=== PATIENT | male | born 1970 | race Caucasian/White ===

== ENCOUNTER 2020-06-15 00:55 | Inpatient (IN) | payer MEDICARE, MEDICAID, SELFPAY ==
[2020-06-16 01:49] VITALS: BMI 29.2
[2020-06-17] MEDS: LORazepam 1 MG TABLET PO (03:30)
[2020-06-17 06:00] VITALS: BP 114/69; PULSE 73; RESP 16; TEMP 36.5; O2SAT 97
[2020-06-17] MEDS: Omeprazole 20 MG CAPSULE.DR PO (06:49)
[2020-06-17] MEDS: busPIRone HCl 10 MG TABLET PO ×3 (10:16→21:26)
[2020-06-17] MEDS: OXcarbazepine 300 MG TABLET 600 MG PO ×2 (10:16→21:23)
[2020-06-17 10:17] VITALS: BP 114/69; PULSE 73
[2020-06-17] MEDS: Propranolol HCL 20 MG TABLET PO (10:17)
[2020-06-17] MEDS: Benztropine Mesylate 0.5 MG TABLET PO ×2 (10:17→21:22)
[2020-06-17] MEDS: Perphenazine 8 MG TABLET PO ×3 (10:17→21:23)
[2020-06-17] MEDS: Multivitamin TABLET 1 TAB PO (10:18)
[2020-06-17] MEDS: Buprenorphine/Naloxone 8/2 mg FILM 1 FILM SUBLINGUAL (10:18)
[2020-06-17] MEDS: Triamcinolone Acet 0.5 % Cream 15 GM TUBE 1 APPL TOPICAL ×2 (10:26→21:27)
[2020-06-17 14:16] VITALS: BMI 30.2
--- NOTE | 2020-06-17 14:42 | HO.PSYCHPN ---
Assessment & Plan Assessment & Plan (1) Schizophrenia: Status: Acute Code(s): F20.9 - Schizophrenia, unspecified Assessment and Plan: Continue trilafon. Monitor response Lower ativan (2) Lack of housing: Status: Acute Code(s): Z59.0 - Homelessness Assessment and Plan: Unable to return to [facility]. ANNA will liase with outpatiet providers regarding options Greater than 50% of the session was spent on counseling and/or coordination of care Patient educated on: diagnosis, medication risk/benefits and substance abuse Informed Consent: further education needed Reason for contiued inpatient stay Substantial Risk for: harm to others, rapid decompensation and med/psych decompensation Subjective Subjective Date of Service: 06/17/20 Reason For Visit: Unspecified Psychotic Subjective Notes: Turner Order (Active) and 3 Day Interim History: Maurice has been less intrusive and he has been more willing to take medications. He was quite sedated and ativan has been held. He was not happy to hear that there is a possibility that he can not return to [facility] and plans to talk with SW about this further. He has no insight into his illness. He is taking 24 mg trilafon daily. He slept much better. Medication Compliance: Yes Side effects from medications: Yes (sedation) Attending Groups: Intermittent Mental Status Exam Mental Status Exam Patient Appearance: Disheveled Patient Orientation: Person, Place, Time and Situation Level of Consciousness: Drowsy Patient Behavior: Posturing, Cooperative, Suspicious, Impulsive and Pacing Mood Description: Suspicious and Hostile Affect Description: Suspicious, Constricted and Labile Patient Cognition Impaired: No Ability to Follow Directions: Fair Speech Pattern: Spontaneous Speech and Loud Memory Description: Intact Hallucinations: None Delusions: Paranoid Ideation Thought Process: Distracted and Rumination Thought Content: Evasive Depressive Symptoms: Increased Irritability Abnormal Motor Activity Signs and Symptoms: Aggression Judgement: Poor Diagnostics Vital Signs (24Hr): Vital Signs - 24 hr 06/17/20 06:00 06/17/20 10:17 Temperature 97.7 F Pulse Rate 73 73 Respiratory Rate 16 Blood Pressure 114/69 114/69 Pulse Oximetry 97 Body Mass Index 30.2 Labs Results: 06/14/20 19:20 06/14/20 19:20 Labs: Laboratory Results - last 48 hr 06/14/20 06/14/20 06/14/20 19:09 19:20 19:20 WBC RBC Hgb Hct MCV MCH MCHC RDW Coeff of Ernestina Plt Count MPV Immature Gran % (Auto) Neut % (Auto) Lymph % (Auto) [place] % (Auto) Eos % (Auto) Baso % (Auto) Abs Immat Gran (auto) Absolute Lymphs (auto) Absolute Monos (auto) Absolute Eos (auto) Absolute Basos (auto) Absolute Nucleated RBC Nucleated RBC % (auto) Sodium Cancelled Potassium Cancelled Chloride Cancelled Bicarbonate Cancelled Anion Gap Cancelled BUN Cancelled Creatinine Cancelled Estimated Creat Clear Cancelled Est GFR (Non-Af Amer) Cancelled Random Glucose Cancelled Estimat Average Glucose Hemoglobin A1c Total Bilirubin Cancelled Direct Bilirubin Cancelled AST Cancelled ALT Cancelled Alkaline Phosphatase Cancelled Total Protein Cancelled Albumin Cancelled Triglycerides Cholesterol LDL Cholesterol, Calc HDL Cholesterol Urine Opiates Screen NOT DETECTED Ur Barbiturates Screen NOT DETECTED Phencyclidine Screen NOT DETECTED Ur Amphetamines Screen NOT DETECTED U Benzodiazepines Scrn NOT DETECTED Urine Cocaine Screen NOT DETECTED U Cannabinoids Screen NOT DETECTED Ethyl Alcohol Cancelled Coronavirus (PCR) 06/14/20 06/15/20 06/16/20 19:20 00:41 08:50 WBC Cancelled RBC Cancelled Hgb Cancelled Hct Cancelled MCV Cancelled MCH Cancelled MCHC Cancelled RDW Coeff of Ernestina Cancelled Plt Count Cancelled MPV Cancelled Immature Gran % (Auto) Cancelled Neut % (Auto) Cancelled Lymph % (Auto) Cancelled [place] % (Auto) Cancelled Eos % (Auto) Cancelled Baso % (Auto) Cancelled Abs Immat Gran (auto) Cancelled Absolute Lymphs (auto) Cancelled Absolute Monos (auto) Cancelled Absolute Eos (auto) Cancelled Absolute Basos (auto) Cancelled Absolute Nucleated RBC Cancelled Nucleated RBC % (auto) Cancelled Sodium Potassium Chloride Bicarbonate Anion Gap BUN Creatinine Estimated Creat Clear Est GFR (Non-Af Amer) Random Glucose Estimat Average Glucose 117 Hemoglobin A1c 5.7 Total Bilirubin Direct Bilirubin AST ALT Alkaline Phosphatase Total Protein Albumin Triglycerides Cholesterol LDL Cholesterol, Calc HDL Cholesterol Urine Opiates Screen Ur Barbiturates Screen Phencyclidine Screen Ur Amphetamines Screen U Benzodiazepines Scrn Urine Cocaine Screen U Cannabinoids Screen Ethyl Alcohol Coronavirus (PCR) NEGATIVE 06/16/20 08:50 WBC RBC Hgb Hct MCV MCH MCHC RDW Coeff of Ernestina Plt Count MPV Immature Gran % (Auto) Neut % (Auto) Lymph % (Auto) [place] % (Auto) Eos % (Auto) Baso % (Auto) Abs Immat Gran (auto) Absolute Lymphs (auto) Absolute Monos (auto) Absolute Eos (auto) Absolute Basos (auto) Absolute Nucleated RBC Nucleated RBC % (auto) Sodium Potassium Chloride Bicarbonate Anion Gap BUN Creatinine Estimated Creat Clear Est GFR (Non-Af Amer) Random Glucose Estimat Average Glucose Hemoglobin A1c Total Bilirubin Direct Bilirubin AST ALT Alkaline Phosphatase Total Protein Albumin Triglycerides 84 Cholesterol 178 LDL Cholesterol, Calc 114 HDL Cholesterol 48 D Urine Opiates Screen Ur Barbiturates Screen Phencyclidine Screen Ur Amphetamines Screen U Benzodiazepines Scrn Urine Cocaine Screen U Cannabinoids Screen Ethyl Alcohol Coronavirus (PCR) Medications Medications Ambulatory Orders Medication Instructions Recorded benztropine 0.5 mg PO BID 06/16/20 buprenorphine-naloxone [Suboxone] 1 film BUCCAL DAILY 06/16/20 buspirone 10 mg PO TID 06/16/20 clonidine HCl 0.1 mg PO DAILY PRN 06/16/20 docusate sodium 100 mg PO BID PRN 06/16/20 lorazepam 1 mg PO Q6H PRN 06/16/20 multivitamin 1 tab PO DAILY 06/16/20 omeprazole 20 mg PO DAILY 06/16/20 oxcarbazepine 600 mg PO BID 06/16/20 perphenazine 4 mg PO QPM 06/16/20 perphenazine 8 mg PO BID 06/16/20 propranolol 20 mg PO DAILY 06/16/20 trazodone 100 mg PO BEDTIME 06/16/20 triamcinolone acetonide [Kenalog] 1 applic TOPICAL BID 06/16/20 zolpidem 10 mg PO BEDTIME PRN 06/16/20 Allergies Allergies Allergy/AdvReac Type Severity Reaction Status Date / Time haloperidol [From HALDOL] Allergy Intermediate UNKNOWN Unverified 06/03/20 15:44
[2020-06-17] MEDS: Ibuprofen 600 MG TABLET PO (17:06)
[2020-06-17 17:13] VITALS: BP 98/53; PULSE 67; TEMP 36.3
[2020-06-18 06:00] VITALS: BP 125/71; PULSE 61; RESP 16; TEMP 36.1; O2SAT 98
[2020-06-18] MEDS: Omeprazole 20 MG CAPSULE.DR PO (09:50)
[2020-06-18 09:51] VITALS: BP 125/71; PULSE 61
[2020-06-18] MEDS: Propranolol HCL 20 MG TABLET PO (09:51)
[2020-06-18] MEDS: Benztropine Mesylate 0.5 MG TABLET PO ×2 (09:51→21:08)
[2020-06-18] MEDS: Perphenazine 8 MG TABLET PO ×3 (09:52→21:06)
[2020-06-18] MEDS: Multivitamin TABLET 1 TAB PO (09:52)
[2020-06-18] MEDS: OXcarbazepine 300 MG TABLET 600 MG PO ×2 (09:52→21:00)
[2020-06-18] MEDS: Buprenorphine/Naloxone 8/2 mg FILM 1 FILM SUBLINGUAL (09:53)
[2020-06-18] MEDS: Triamcinolone Acet 0.5 % Cream 15 GM TUBE 1 APPL TOPICAL ×2 (09:56→22:16)
[2020-06-18] MEDS: busPIRone HCl 10 MG TABLET PO ×3 (09:57→21:15)
[2020-06-18 14:16] VITALS: BP 130/72; PULSE 64
[2020-06-18] MEDS: cloNIDine HCL 0.1 MG TABLET PO ×2 (14:16→21:16)
[2020-06-18] MEDS: Ibuprofen 600 MG TABLET PO ×2 (14:17→21:01)
[2020-06-18 16:41] VITALS: BP 116/79; PULSE 70; TEMP 36.4
[2020-06-18] MEDS: Acetaminophen 325 MG TABLET 650 MG PO (16:51)
--- NOTE | 2020-06-18 18:34 | P.PNPSI_ITS ---
Assessment & Plan Assessment & Plan (1) Schizophrenia: Status: Acute Code(s): F20.9 - Schizophrenia, unspecified Assessment and Plan: CT medication without change. Challenge with risperdal next week and administer risperdal consta. (2) Lack of housing: Status: Acute Code(s): Z59.0 - Homelessness Assessment and Plan: SW working with [facility] [place] and [facility] Greater than 50% of the session was spent on counseling and/or coordination of care Patient educated on: diagnosis, medication risk/benefits and substance abuse Informed Consent: further education needed Reason for contiued inpatient stay Substantial Risk for: inability to function and rapid decompensation Subjective Subjective Date of Service: 06/18/20 Reason For Visit: Unspecified Psychotic Subjective Notes: Tompkins Order and 3 Day Interim History: Maurice was quite belligerent and angry this morning. He has difficulty processing that he is not able to return to [facility] and he has no insight into how his behaviors of being agitated, yelling and intrusive make others scared and that this is what leads to repeated hospital stays. Ammended Tompkins Order was received and this allows for the addition or risperdal consta. This will be ordered and administered next week. Medication Compliance: Yes Side effects from medications: No Attending Groups: Intermittent Mental Status Exam Mental Status Exam Patient Appearance: Disheveled Patient Orientation: Person and Place Level of Consciousness: Inappropriate and Combative Patient Behavior: Posturing, Belligerent, Verbal Threats, Swearing and Anxious Mood Description: Anxious and Angry Affect Description: Angry Patient Cognition Impaired: No Ability to Follow Directions: Fair Speech Pattern: Pressured and Includes Profanity Memory Description: Intact Hallucinations: None Delusions: Not Present Thought Process: Rumination Thought Content: positive for Intact, positive for Perseveration and positive for Disorganized Abnormal Motor Activity Signs and Symptoms: Aggression Judgement: Poor Judgement and Insight: No insight into illness Diagnostics Vital Signs (24Hr): Vital Signs - 24 hr 06/18/20 06:00 06/18/20 09:51 06/18/20 14:16 Temperature 96.9 F Pulse Rate 61 61 64 Respiratory Rate 16 Blood Pressure 125/71 125/71 130/72 Pulse Oximetry 98 06/18/20 16:41 Temperature 97.5 F Pulse Rate 70 Respiratory Rate Blood Pressure 116/79 Pulse Oximetry Body Mass Index 30.2 Labs Results: 06/14/20 19:20 06/14/20 19:20 Labs: Laboratory Results - last 48 hr 06/14/20 06/14/20 06/14/20 19:09 19:20 19:20 WBC RBC Hgb Hct MCV MCH MCHC RDW Coeff of Ernestina Plt Count MPV Immature Gran % (Auto) Neut % (Auto) Lymph % (Auto) [place] % (Auto) Eos % (Auto) Baso % (Auto) Abs Immat Gran (auto) Absolute Lymphs (auto) Absolute Monos (auto) Absolute Eos (auto) Absolute Basos (auto) Absolute Nucleated RBC Nucleated RBC % (auto) Sodium Cancelled Potassium Cancelled Chloride Cancelled Bicarbonate Cancelled Anion Gap Cancelled BUN Cancelled Creatinine Cancelled Estimated Creat Clear Cancelled Est GFR (Non-Af Amer) Cancelled Random Glucose Cancelled Estimat Average Glucose Hemoglobin A1c Total Bilirubin Cancelled Direct Bilirubin Cancelled AST Cancelled ALT Cancelled Alkaline Phosphatase Cancelled Total Protein Cancelled Albumin Cancelled Triglycerides Cholesterol LDL Cholesterol, Calc HDL Cholesterol Urine Opiates Screen NOT DETECTED Ur Barbiturates Screen NOT DETECTED Phencyclidine Screen NOT DETECTED Ur Amphetamines Screen NOT DETECTED U Benzodiazepines Scrn NOT DETECTED Urine Cocaine Screen NOT DETECTED U Cannabinoids Screen NOT DETECTED Ethyl Alcohol Cancelled Coronavirus (PCR) 06/14/20 06/15/20 06/16/20 19:20 00:41 08:50 WBC Cancelled RBC Cancelled Hgb Cancelled Hct Cancelled MCV Cancelled MCH Cancelled MCHC Cancelled RDW Coeff of Ernestina Cancelled Plt Count Cancelled MPV Cancelled Immature Gran % (Auto) Cancelled Neut % (Auto) Cancelled Lymph % (Auto) Cancelled [place] % (Auto) Cancelled Eos % (Auto) Cancelled Baso % (Auto) Cancelled Abs Immat Gran (auto) Cancelled Absolute Lymphs (auto) Cancelled Absolute Monos (auto) Cancelled Absolute Eos (auto) Cancelled Absolute Basos (auto) Cancelled Absolute Nucleated RBC Cancelled Nucleated RBC % (auto) Cancelled Sodium Potassium Chloride Bicarbonate Anion Gap BUN Creatinine Estimated Creat Clear Est GFR (Non-Af Amer) Random Glucose Estimat Average Glucose 117 Hemoglobin A1c 5.7 Total Bilirubin Direct Bilirubin AST ALT Alkaline Phosphatase Total Protein Albumin Triglycerides Cholesterol LDL Cholesterol, Calc HDL Cholesterol Urine Opiates Screen Ur Barbiturates Screen Phencyclidine Screen Ur Amphetamines Screen U Benzodiazepines Scrn Urine Cocaine Screen U Cannabinoids Screen Ethyl Alcohol Coronavirus (PCR) NEGATIVE 06/16/20 08:50 WBC RBC Hgb Hct MCV MCH MCHC RDW Coeff of Ernestina Plt Count MPV Immature Gran % (Auto) Neut % (Auto) Lymph % (Auto) [place] % (Auto) Eos % (Auto) Baso % (Auto) Abs Immat Gran (auto) Absolute Lymphs (auto) Absolute Monos (auto) Absolute Eos (auto) Absolute Basos (auto) Absolute Nucleated RBC Nucleated RBC % (auto) Sodium Potassium Chloride Bicarbonate Anion Gap BUN Creatinine Estimated Creat Clear Est GFR (Non-Af Amer) Random Glucose Estimat Average Glucose Hemoglobin A1c Total Bilirubin Direct Bilirubin AST ALT Alkaline Phosphatase Total Protein Albumin Triglycerides 84 Cholesterol 178 LDL Cholesterol, Calc 114 HDL Cholesterol 48 D Urine Opiates Screen Ur Barbiturates Screen Phencyclidine Screen Ur Amphetamines Screen U Benzodiazepines Scrn Urine Cocaine Screen U Cannabinoids Screen Ethyl Alcohol Coronavirus (PCR) Medications Medications Current Medications Generic Name Dose Route Start Last Admin Trade Name Freq PRN Reason Stop Dose Admin Acetaminophen 650 mg 06/17/20 00:01 06/18/20 16:51 Acetaminophen 325 Mg Tablet PO 650 mg Q6H PRN Administration HEADACHE/PAIN.MAIN (SCALE 1-3) Al Hydroxide/Mg Hydroxide 30 ml 06/17/20 00:01 Magnesium Hydrox/Alum Hydrox 30 Ml Oral.Susp PO Q6H PRN HEARTBURN/NAUSEA Benztropine Mesylate 0.5 mg 06/17/20 08:30 06/18/20 09:51 Benztropine Mesylate 0.5 Mg Tablet PO 0.5 mg BID@0830,2100 CHANDA Administration Buprenorphine/Naloxone 1 film 06/17/20 09:00 06/18/20 09:53 Buprenorphine/Naloxone 8/2 Mg Film SUBLINGUAL 1 film DAILY CHANDA Administration Buspirone HCl 10 mg 06/17/20 08:30 06/18/20 14:17 Buspirone Hcl 10 Mg Tablet PO 10 mg TID@0830,1330,2100 CHANDA Administration Clonidine HCl 0.1 mg 06/17/20 00:01 06/18/20 14:16 Clonidine Hcl 0.1 Mg Tablet PO 0.1 mg DAILY PRN Administration anxiety/restlessness Docusate Sodium 100 mg 06/17/20 00:01 Docusate Sodium 100 Mg Capsule PO BID PRN Constipation Hydroxyzine HCl 25 mg 06/17/20 21:00 Hydroxyzine Hcl 25 Mg Tablet PO BEDTIME MRX1 PRN NIGHT TIME ANXIETY Ibuprofen 600 mg 06/17/20 14:02 06/18/20 14:17 Ibuprofen 600 Mg Tablet PO 600 mg Q6H PRN Administration Pain, Moderate (Pain Scale 4-6 Lorazepam 1 mg 06/17/20 00:01 06/17/20 03:30 Lorazepam 1 Mg Tablet PO 1 mg Q6H PRN Administration anxiety/restlessness Lorazepam 0.5 mg 06/17/20 15:00 06/18/20 14:19 Lorazepam 1 Mg Tablet PO Not Given TID CHANDA Magnesium Hydroxide 30 ml 06/17/20 00:01 Milk Of Magnesia 30 Ml Oral.Susp PO Q24H PRN Constipation Multivitamins/Vitamin C 1 tab 06/17/20 09:00 06/18/20 09:52 Multivitamin Tablet PO 1 tab DAILY CHANDA Administration Nicotine Polacrilex 2 mg 06/17/20 00:01 Nicotine Polacrilex 2 Mg Gum BUCCAL Q2H PRN Nicotine Cravings Omeprazole 20 mg 06/17/20 06:30 06/18/20 09:50 Omeprazole 20 Mg Capsule.Dr PO 20 mg DAILY@0630 CHANDA Administration Oxcarbazepine 600 mg 06/17/20 08:30 06/18/20 09:52 Oxcarbazepine 300 Mg Tablet PO 600 mg BID@0830,2100 CHANDA Administration Perphenazine 8 mg 06/17/20 00:01 Perphenazine 8 Mg Tablet PO Q4H PRN anxiety/restlessness Perphenazine 8 mg 06/17/20 09:00 06/18/20 14:18 Perphenazine 8 Mg Tablet PO 8 mg TID CHANDA Administration Propranolol HCl 20 mg 06/17/20 09:00 06/18/20 09:51 Propranolol Hcl 20 Mg Tablet PO 20 mg DAILY CHANDA Administration Trazodone HCl 200 mg 06/17/20 21:00 06/18/20 10:02 Trazodone Hcl 100 Mg Tablet PO Not Given BEDTIME CHANDA Trazodone HCl 50 mg 06/17/20 21:00 Trazodone Hcl 50 Mg Tablet PO BEDTIME MRX1 PRN Insomnia Triamcinolone Acetonide 1 appl 06/17/20 08:30 06/18/20 09:56 Triamcinolone Acet 0.5 % Cream 15 Gm Tube TOPICAL 1 appl BID@0830,2100 CHANDA Administration Zolpidem Tartrate 5 mg 06/17/20 21:00 Zolpidem Tartrate 5 Mg Tablet PO BEDTIME MRX1 PRN Insomnia Allergies Allergies Allergy/AdvReac Type Severity Reaction Status Date / Time haloperidol [From HALDOL] Allergy Intermediate UNKNOWN Verified 06/17/20 16:04
[2020-06-18] MEDS: LORazepam 1 MG TABLET 0.5 MG PO (21:04)
[2020-06-18] MEDS: traZODone HCL 100 MG TABLET 200 MG PO (21:07)
[2020-06-18 21:16] VITALS: BP 163/87; PULSE 71
[2020-06-19 00:10] VITALS: BP 132/71; PULSE 66; RESP 16; TEMP 36.1; O2SAT 96
[2020-06-19] MEDS: hydrOXYzine HCL 25 MG TABLET PO (00:49)
[2020-06-19] MEDS: traZODone HCL 50 MG TABLET PO (00:49)
[2020-06-19 06:00] VITALS: BP 127/72; PULSE 77
[2020-06-19] MEDS: Magnesium Hydrox/Alum Hydrox 30 ML ORAL.SUSP PO (09:19)
[2020-06-19] MEDS: Omeprazole 20 MG CAPSULE.DR PO (09:20)
[2020-06-19] MEDS: Buprenorphine/Naloxone 8/2 mg FILM 1 FILM SUBLINGUAL (09:51)
[2020-06-19] MEDS: Perphenazine 8 MG TABLET PO ×3 (09:52→21:17)
[2020-06-19] MEDS: OXcarbazepine 300 MG TABLET 600 MG PO ×2 (09:52→21:17)
[2020-06-19] MEDS: Benztropine Mesylate 0.5 MG TABLET PO ×2 (09:53→21:17)
[2020-06-19] MEDS: Multivitamin TABLET 1 TAB PO (09:53)
--- NOTE | 2020-06-19 12:07 | P.PNPSI_ITS ---
Assessment & Plan Assessment & Plan (1) Schizophrenia: Status: Acute Code(s): F20.9 - Schizophrenia, unspecified Assessment and Plan: ongoing disorganization of thought and behavior Greater than 50% of the session was spent on counseling and/or coordination of care Subjective Subjective Date of Service: 06/19/20 Reason For Visit: Unspecified Psychotic Subjective Notes: 3 Day Interim History: Want to get off propranlol and be on clonidine prn Medication Compliance: Yes Side effects from medications: No Attending Groups: Intermittent Review of Systems Acute medical concerns: No Medical Review of Systems: unchanged Mental Status Exam Mental Status Exam Narrative: inappropriate distance but wearing 2 masks- Patient Appearance: Appropriate Patient Orientation: Person, Place, Time and Situation Level of Consciousness: Awake and Alert Patient Behavior: Dependent, Cooperative, Restless, Anxious and Good Eye Contact Mood Description: Anxious Affect Description: Anxious Patient Cognition Impaired: No Ability to Follow Directions: Fair Speech Pattern: Clear and Rambling Hallucinations: None Thought Process: Distracted Thought Content: positive for Tangential Depressive Symptoms: Increased Anxiety and Increased Irritability Abnormal Motor Activity Signs and Symptoms: Restlessness Judgement: Fair Diagnostics Vital Signs (24Hr): Vital Signs - 24 hr 06/18/20 14:16 06/18/20 16:41 06/18/20 21:16 Temperature 97.5 F Pulse Rate 64 70 71 Respiratory Rate Blood Pressure 130/72 116/79 163/87 H Pulse Oximetry 06/19/20 00:10 Temperature 96.9 F Pulse Rate 66 Respiratory Rate 16 Blood Pressure 132/71 Pulse Oximetry 96 Body Mass Index 30.2 Labs Results: 06/14/20 19:20 06/14/20 19:20 Medications Medications Current Medications Generic Name Dose Route Start Last Admin Trade Name Freq PRN Reason Stop Dose Admin Acetaminophen 650 mg 06/17/20 00:01 06/18/20 16:51 Acetaminophen 325 Mg Tablet PO 650 mg Q6H PRN Administration HEADACHE/PAIN.MAIN (SCALE 1-3) Al Hydroxide/Mg Hydroxide 30 ml 06/17/20 00:01 06/19/20 09:19 Magnesium Hydrox/Alum Hydrox 30 Ml Oral.Susp PO 30 ml Q6H PRN Administration HEARTBURN/NAUSEA Benztropine Mesylate 0.5 mg 06/17/20 08:30 06/19/20 09:53 Benztropine Mesylate 0.5 Mg Tablet PO 0.5 mg BID@0830,2100 CHANDA Administration Buprenorphine/Naloxone 1 film 06/17/20 09:00 06/19/20 09:51 Buprenorphine/Naloxone 8/2 Mg Film SUBLINGUAL 1 film DAILY CHANDA Administration Buspirone HCl 10 mg 06/17/20 08:30 06/19/20 09:57 Buspirone Hcl 10 Mg Tablet PO Not Given TID@0830,1330,2100 [facility] Clonidine HCl 0.1 mg 06/17/20 00:01 06/18/20 21:16 Clonidine Hcl 0.1 Mg Tablet PO 0.1 mg DAILY PRN Administration anxiety/restlessness Docusate Sodium 100 mg 06/17/20 00:01 Docusate Sodium 100 Mg Capsule PO BID PRN Constipation Hydroxyzine HCl 25 mg 06/17/20 21:00 06/19/20 00:49 Hydroxyzine Hcl 25 Mg Tablet PO 25 mg BEDTIME MRX1 PRN Administration NIGHT TIME ANXIETY Ibuprofen 600 mg 06/17/20 14:02 06/18/20 21:01 Ibuprofen 600 Mg Tablet PO 600 mg Q6H PRN Administration Pain, Moderate (Pain Scale 4-6 Lorazepam 1 mg 06/17/20 00:01 06/17/20 03:30 Lorazepam 1 Mg Tablet PO 1 mg Q6H PRN Administration anxiety/restlessness Lorazepam 0.5 mg 06/17/20 15:00 06/19/20 09:56 Lorazepam 1 Mg Tablet PO Not Given TID [facility] Magnesium Hydroxide 30 ml 06/17/20 00:01 Milk Of Magnesia 30 Ml Oral.Susp PO Q24H PRN Constipation Multivitamins/Vitamin C 1 tab 06/17/20 09:00 06/19/20 09:53 Multivitamin Tablet PO 1 tab DAILY CHANDA Administration Nicotine Polacrilex 2 mg 06/17/20 00:01 Nicotine Polacrilex 2 Mg Gum BUCCAL Q2H PRN Nicotine Cravings Omeprazole 20 mg 06/17/20 06:30 06/19/20 09:20 Omeprazole 20 Mg Capsule.Dr PO 20 mg DAILY@0630 CHANDA Administration Oxcarbazepine 600 mg 06/17/20 08:30 06/19/20 09:52 Oxcarbazepine 300 Mg Tablet PO 600 mg BID@0830,2100 CHANDA Administration Perphenazine 8 mg 06/17/20 00:01 Perphenazine 8 Mg Tablet PO Q4H PRN anxiety/restlessness Perphenazine 8 mg 06/17/20 09:00 06/19/20 09:52 Perphenazine 8 Mg Tablet PO 8 mg TID CHANDA Administration Propranolol HCl 20 mg 06/17/20 09:00 06/19/20 09:56 Propranolol Hcl 20 Mg Tablet PO Not Given DAILY CHANDA Trazodone HCl 200 mg 06/17/20 21:00 06/18/20 21:07 Trazodone Hcl 100 Mg Tablet PO 200 mg BEDTIME CHANDA Administration Trazodone HCl 50 mg 06/17/20 21:00 06/19/20 00:49 Trazodone Hcl 50 Mg Tablet PO 50 mg BEDTIME MRX1 PRN Administration Insomnia Triamcinolone Acetonide 1 appl 06/17/20 08:30 06/19/20 09:56 Triamcinolone Acet 0.5 % Cream 15 Gm Tube TOPICAL Not Given BID@0830,2100 CHANDA Zolpidem Tartrate 5 mg 06/17/20 21:00 Zolpidem Tartrate 5 Mg Tablet PO BEDTIME MRX1 PRN Insomnia Allergies Allergies Allergy/AdvReac Type Severity Reaction Status Date / Time haloperidol [From HALDOL] Allergy Intermediate UNKNOWN Verified 06/17/20 16:04
[2020-06-19] MEDS: cloNIDine HCL 0.1 MG TABLET PO (14:27)
[2020-06-19] MEDS: LORazepam 1 MG TABLET PO (17:55)
[2020-06-19 17:59] VITALS: BP 114/72; TEMP 36.4
[2020-06-19] MEDS: LORazepam 1 MG TABLET 0.5 MG PO (21:15)
[2020-06-19] MEDS: traZODone HCL 100 MG TABLET 200 MG PO (21:16)
[2020-06-19] MEDS: busPIRone HCl 10 MG TABLET PO (21:22)
[2020-06-19] MEDS: Triamcinolone Acet 0.5 % Cream 15 GM TUBE 1 APPL TOPICAL (21:37)
[2020-06-20] MEDS: Benztropine Mesylate 0.5 MG TABLET PO ×2 (09:40→21:43)
[2020-06-20] MEDS: Propranolol HCL 20 MG TABLET 10 MG PO (09:40)
[2020-06-20] MEDS: Buprenorphine/Naloxone 8/2 mg FILM 1 FILM SUBLINGUAL (09:40)
[2020-06-20] MEDS: Multivitamin TABLET 1 TAB PO (09:40)
[2020-06-20] MEDS: Perphenazine 8 MG TABLET PO ×3 (09:40→21:43)
[2020-06-20] MEDS: OXcarbazepine 300 MG TABLET 600 MG PO ×2 (09:40→21:42)
--- NOTE | 2020-06-20 10:12 | HO.PSYCHPN ---
Assessment & Plan Assessment & Plan (1) Schizophrenia: Status: Acute Code(s): F20.9 - Schizophrenia, unspecified Assessment and Plan: hopoing to go back to [facility] program , will recheck lfts if patient allows, also check sodium lvl on oxcarbazapine Greater than 50% of the session was spent on counseling and/or coordination of care Subjective Subjective Date of Service: 06/20/20 Reason For Visit: Unspecified Psychotic Subjective Notes: 3 Day Interim History: REports he got angry at program and hit arm against wall hopes they will take him back - plans to go back Medication Compliance: Intermittent (refusing propranlol, wants to be down to 4 meds) Side effects from medications: No Attending Groups: Intermittent Review of Systems Acute medical concerns: No Medical Review of Systems: unchanged Review of Systems: has abraision right elbow- partially covered by bandage Mental Status Exam Mental Status Exam Narrative: today not wearing mask at all and stands in cliff close to other pt s Patient Appearance: Bizarre Patient Orientation: Person, Place, Time and Situation Level of Consciousness: Awake and Alert Patient Behavior: Dependent, Cooperative, Invasion - Personal Space and Distractible Mood Description: Expansive Affect Description: Expansive Patient Cognition Impaired: No Ability to Follow Directions: Fair Speech Pattern: Rambling Thought Process: Distracted (disorganized, tangential) Thought Content: positive for Tangential Abnormal Motor Activity Signs and Symptoms: Restlessness Judgement: Poor Diagnostics Vital Signs (24Hr): Vital Signs - 24 hr 06/19/20 17:59 Temperature 97.6 F Blood Pressure 114/72 Body Mass Index 30.2 Labs Results: 06/14/20 19:20 06/14/20 19:20 Medications Medications Current Medications Generic Name Dose Route Start Last Admin Trade Name Freq PRN Reason Stop Dose Admin Acetaminophen 650 mg 06/17/20 00:01 06/18/20 16:51 Acetaminophen 325 Mg Tablet PO 650 mg Q6H PRN Administration HEADACHE/PAIN.MAIN (SCALE 1-3) Al Hydroxide/Mg Hydroxide 30 ml 06/17/20 00:01 06/19/20 09:19 Magnesium Hydrox/Alum Hydrox 30 Ml Oral.Susp PO 30 ml Q6H PRN Administration HEARTBURN/NAUSEA Benztropine Mesylate 0.5 mg 06/17/20 08:30 06/20/20 09:40 Benztropine Mesylate 0.5 Mg Tablet PO 0.5 mg BID@0830,2100 CHANDA Administration Buprenorphine/Naloxone 1 film 06/17/20 09:00 06/20/20 09:40 Buprenorphine/Naloxone 8/2 Mg Film SUBLINGUAL 1 film DAILY CHANDA Administration Buspirone HCl 10 mg 06/17/20 08:30 06/20/20 09:43 Buspirone Hcl 10 Mg Tablet PO Not Given TID@0830,1330,2100 [facility] Clonidine HCl 0.1 mg 06/19/20 19:46 Clonidine Hcl 0.1 Mg Tablet PO BID PRN anxiety/restlessness Docusate Sodium 100 mg 06/17/20 00:01 Docusate Sodium 100 Mg Capsule PO BID PRN Constipation Hydroxyzine HCl 25 mg 06/17/20 21:00 06/19/20 00:49 Hydroxyzine Hcl 25 Mg Tablet PO 25 mg BEDTIME MRX1 PRN Administration NIGHT TIME ANXIETY Ibuprofen 600 mg 06/17/20 14:02 06/18/20 21:01 Ibuprofen 600 Mg Tablet PO 600 mg Q6H PRN Administration Pain, Moderate (Pain Scale 4-6 Lorazepam 1 mg 06/17/20 00:01 06/19/20 17:55 Lorazepam 1 Mg Tablet PO 1 mg Q6H PRN Administration anxiety/restlessness Lorazepam 0.5 mg 06/17/20 15:00 06/20/20 09:42 Lorazepam 1 Mg Tablet PO Not Given TID [facility] Magnesium Hydroxide 30 ml 06/17/20 00:01 Milk Of Magnesia 30 Ml Oral.Susp PO Q24H PRN Constipation Multivitamins/Vitamin C 1 tab 06/17/20 09:00 06/20/20 09:40 Multivitamin Tablet PO 1 tab DAILY CHANDA Administration Nicotine Polacrilex 2 mg 06/17/20 00:01 Nicotine Polacrilex 2 Mg Gum BUCCAL Q2H PRN Nicotine Cravings Omeprazole 20 mg 06/17/20 06:30 06/20/20 06:38 Omeprazole 20 Mg Capsule.Dr PO Not Given DAILY@0630 [facility] Oxcarbazepine 600 mg 06/17/20 08:30 06/20/20 09:40 Oxcarbazepine 300 Mg Tablet PO 600 mg BID@0830,2100 CHANDA Administration Perphenazine 8 mg 06/17/20 00:01 Perphenazine 8 Mg Tablet PO Q4H PRN anxiety/restlessness Perphenazine 8 mg 06/17/20 09:00 06/20/20 09:40 Perphenazine 8 Mg Tablet PO 8 mg TID CHANDA Administration Propranolol HCl 10 mg 06/20/20 09:00 06/20/20 09:40 Propranolol Hcl 20 Mg Tablet PO 10 mg DAILY CHANDA Administration Trazodone HCl 200 mg 06/17/20 21:00 06/19/20 21:16 Trazodone Hcl 100 Mg Tablet PO 200 mg BEDTIME CHANDA Administration Trazodone HCl 50 mg 06/17/20 21:00 06/19/20 00:49 Trazodone Hcl 50 Mg Tablet PO 50 mg BEDTIME MRX1 PRN Administration Insomnia Triamcinolone Acetonide 1 appl 06/17/20 08:30 06/20/20 09:43 Triamcinolone Acet 0.5 % Cream 15 Gm Tube TOPICAL Not Given BID@0830,2100 CHANDA Zolpidem Tartrate 5 mg 06/17/20 21:00 Zolpidem Tartrate 5 Mg Tablet PO BEDTIME MRX1 PRN Insomnia Allergies Allergies Allergy/AdvReac Type Severity Reaction Status Date / Time haloperidol [From HALDOL] Allergy Intermediate UNKNOWN Verified 06/17/20 16:04
[2020-06-20 17:05] VITALS: BP 114/58; PULSE 60; TEMP 36.2
[2020-06-20 17:18] VITALS: BP 114/58; PULSE 60
[2020-06-20] MEDS: cloNIDine HCL 0.1 MG TABLET PO (17:18)
[2020-06-20] MEDS: traZODone HCL 100 MG TABLET 200 MG PO (21:43)
[2020-06-20] MEDS: busPIRone HCl 10 MG TABLET PO (21:43)
[2020-06-21 06:00] VITALS: BP 119/55; PULSE 67; TEMP 36.5
[2020-06-21 08:43] VITALS: BP 119/55; PULSE 67
[2020-06-21] MEDS: cloNIDine HCL 0.1 MG TABLET PO ×2 (08:43→16:53)
[2020-06-21] MEDS: Omeprazole 20 MG CAPSULE.DR PO (08:48)
[2020-06-21] MEDS: Multivitamin TABLET 1 TAB PO (08:48)
[2020-06-21] MEDS: busPIRone HCl 10 MG TABLET PO (08:48)
[2020-06-21] MEDS: Buprenorphine/Naloxone 8/2 mg FILM 1 FILM SUBLINGUAL (08:49)
[2020-06-21] MEDS: Perphenazine 8 MG TABLET PO ×3 (08:49→21:39)
[2020-06-21] MEDS: Benztropine Mesylate 0.5 MG TABLET PO ×2 (08:51→21:38)
--- NOTE | 2020-06-21 09:14 | P.PNPSI_ITS ---
Assessment & Plan Greater than 50% of the session was spent on counseling and/or coordination of care Patient educated on: diagnosis, medication risk/benefits and substance abuse Informed Consent: does not understand Reason for contiued inpatient stay Substantial Risk for: harm to others and rapid decompensation Subjective Subjective Date of Service: 06/21/20 Reason For Visit: Unspecified Psychotic Subjective Notes: [place] Warning, Tompkins Order and Legal Status (section 7) Interim History: Maurice has remained agitated and volatile. He was expecting to leave on a 3 day notice, but is not able to return to [facility] and there is no safe disposition. When I attempted to speak to him about this he became angry and threw coffee against the window, yelling at the top of his lungs. I attempted to speak to him about the Tompkins Order and its provision for risperdal consta, he again became angry and paranoid about the process of his Tompkins Order. He accused this greeting card writer of lying to him. Medication Compliance: Intermittent (Refused risperdal) Side effects from medications: No Attending Groups: Intermittent Review of Systems Acute medical concerns: No Medical Review of Systems: unchanged Mental Status Exam Mental Status Exam Patient Appearance: Well Grooomed Patient Orientation: Person, Place, Time and Situation Level of Consciousness: Inappropriate and Combative Patient Behavior: Suspicious, Aggressive and Belligerent Mood Description: Angry Affect Description: Hostile and Angry Patient Cognition Impaired: No Ability to Follow Directions: Poor Speech Pattern: Loud and Includes Profanity Memory Description: Intact Hallucinations: None Delusions: Paranoid Ideation and Ideas of Reference Thought Process: Rumination Thought Content: positive for [place] Depressive Symptoms: Thoughts of /Suicide (Absent) Abnormal Motor Activity Signs and Symptoms: Agitation Judgement: Poor Diagnostics Vital Signs (24Hr): Vital Signs - 24 hr 06/20/20 17:05 06/20/20 17:18 06/21/20 08:43 Temperature 97.1 F Pulse Rate 60 60 67 Blood Pressure 114/58 L 114/58 L 119/55 L Body Mass Index 30.2 Labs Results: 06/14/20 19:20 06/21/20 09:05 Medications Medications Current Medications Generic Name Dose Route Start Last Admin Trade Name Freq PRN Reason Stop Dose Admin Acetaminophen 650 mg 06/17/20 00:01 06/18/20 16:51 Acetaminophen 325 Mg Tablet PO 650 mg Q6H PRN Administration HEADACHE/PAIN.MAIN (SCALE 1-3) Al Hydroxide/Mg Hydroxide 30 ml 06/17/20 00:01 06/19/20 09:19 Magnesium Hydrox/Alum Hydrox 30 Ml Oral.Susp PO 30 ml Q6H PRN Administration HEARTBURN/NAUSEA Benztropine Mesylate 0.5 mg 06/17/20 08:30 06/21/20 08:51 Benztropine Mesylate 0.5 Mg Tablet PO 0.5 mg BID@0830,2100 CHANDA Administration Buprenorphine/Naloxone 1 film 06/17/20 09:00 06/21/20 08:49 Buprenorphine/Naloxone 8/2 Mg Film SUBLINGUAL 1 film DAILY CHANDA Administration Buspirone HCl 10 mg 06/17/20 08:30 06/21/20 08:48 Buspirone Hcl 10 Mg Tablet PO 10 mg TID@0830,1330,2100 CHANDA Administration Clonidine HCl 0.1 mg 06/19/20 19:46 06/21/20 08:43 Clonidine Hcl 0.1 Mg Tablet PO 0.1 mg BID PRN Administration anxiety/restlessness Docusate Sodium 100 mg 06/17/20 00:01 Docusate Sodium 100 Mg Capsule PO BID PRN Constipation Hydroxyzine HCl 25 mg 06/17/20 21:00 06/19/20 00:49 Hydroxyzine Hcl 25 Mg Tablet PO 25 mg BEDTIME MRX1 PRN Administration NIGHT TIME ANXIETY Ibuprofen 600 mg 06/17/20 14:02 06/18/20 21:01 Ibuprofen 600 Mg Tablet PO 600 mg Q6H PRN Administration Pain, Moderate (Pain Scale 4-6 Lorazepam 0.5 mg 06/20/20 12:07 Lorazepam 1 Mg Tablet PO TID PRN restlessness/anxiety Magnesium Hydroxide 30 ml 06/17/20 00:01 Milk Of Magnesia 30 Ml Oral.Susp PO Q24H PRN Constipation Multivitamins/Vitamin C 1 tab 06/17/20 09:00 06/21/20 08:48 Multivitamin Tablet PO 1 tab DAILY CHANDA Administration Nicotine Polacrilex 2 mg 06/17/20 00:01 Nicotine Polacrilex 2 Mg Gum BUCCAL Q2H PRN Nicotine Cravings Omeprazole 20 mg 06/17/20 06:30 06/21/20 08:48 Omeprazole 20 Mg Capsule.Dr PO 20 mg DAILY@0630 CHANDA Administration Oxcarbazepine 600 mg 06/17/20 08:30 06/21/20 08:48 Oxcarbazepine 300 Mg Tablet PO 600 mg BID@ CHANDA Administration Perphenazine 8 mg 06/17/20 00:01 Perphenazine 8 Mg Tablet PO Q4H PRN anxiety/restlessness Perphenazine 8 mg 06/17/20 09:00 06/21/20 08:49 Perphenazine 8 Mg Tablet PO 8 mg TID CHANDA Administration Trazodone HCl 200 mg 06/17/20 21:00 06/20/20 21:43 Trazodone Hcl 100 Mg Tablet PO 200 mg BEDTIME CHANDA Administration Trazodone HCl 50 mg 06/17/20 21:00 06/19/20 00:49 Trazodone Hcl 50 Mg Tablet PO 50 mg BEDTIME MRX1 PRN Administration Insomnia Triamcinolone Acetonide 1 appl 06/17/20 08:30 06/21/20 08:52 Triamcinolone Acet 0.5 % Cream 15 Gm Tube TOPICAL Not Given BID@ CHANDA Zolpidem Tartrate 5 mg 06/17/20 21:00 Zolpidem Tartrate 5 Mg Tablet PO BEDTIME MRX1 PRN Insomnia Allergies Allergies Allergy/AdvReac Type Severity Reaction Status Date / Time haloperidol [From HALDOL] Allergy Intermediate UNKNOWN Verified 06/17/20 16:04
[2020-06-21 09:58] LABS: Alanine Aminotransferase 149 U/L (0-40); Alkaline Phosphatase 59 U/L (39-117); Anion Gap 9 (12-20); Aspartate Amino Transferase 74 U/L (5-37); Bilirubin Total 0.3 mg/dL (0.0-1.0); Blood Urea Nitrogen 13 mg/dL (9-16); Calcium 8.8 mg/dL (8.4-10.2); Carbon Dioxide 33 mmol/L (22-29); Chloride 97 mmol/L (96-108); Creatinine Clr Calc Pharmacy 104.9; Estimated Glomerular Filt Rate > 60; Glucose Random 96 mg/dL (60-115); Potassium 4.7 mmol/l (3.3-5.1); Sodium 134 mmol/L (135-145); Total Protein 6.9 g/dL (6.5-8.0)
[2020-06-21] MEDS: OXcarbazepine 300 MG TABLET 600 MG PO ×2 (11:30→21:40)
[2020-06-21 16:50] VITALS: BP 121/66; PULSE 77; TEMP 36.2
[2020-06-21 16:53] VITALS: BP 121/66; PULSE 77
[2020-06-21] MEDS: LORazepam 1 MG TABLET 0.5 MG PO (21:50)
[2020-06-22] MEDS: traZODone HCL 100 MG TABLET 200 MG PO ×2 (00:46→22:09)
[2020-06-22 00:49] VITALS: BP 110/67; PULSE 65
[2020-06-22] MEDS: cloNIDine HCL 0.1 MG TABLET PO ×3 (00:49→23:25)
[2020-06-22] MEDS: Buprenorphine/Naloxone 8/2 mg FILM 1 FILM SUBLINGUAL (09:06)
[2020-06-22] MEDS: Omeprazole 20 MG CAPSULE.DR PO (09:06)
[2020-06-22] MEDS: Multivitamin TABLET 1 TAB PO (09:06)
[2020-06-22] MEDS: OXcarbazepine 300 MG TABLET 600 MG PO ×2 (09:06→22:10)
[2020-06-22] MEDS: Perphenazine 8 MG TABLET PO ×3 (09:06→22:10)
[2020-06-22 09:09] VITALS: BP 115/59; PULSE 81
[2020-06-22] MEDS: Triamcinolone Acet 0.5 % Cream 15 GM TUBE 1 APPL TOPICAL ×2 (09:11→23:09)
--- NOTE | 2020-06-22 09:30 | HO.PSYCHPN ---
Assessment & Plan Greater than 50% of the session was spent on counseling and/or coordination of care Subjective Subjective Reason For Visit: Unspecified Psychotic Diagnostics Vital Signs (24Hr): Vital Signs - 24 hr 06/21/20 16:50 06/21/20 16:53 06/22/20 00:49 Temperature 97.1 F Pulse Rate 77 77 65 Blood Pressure 121/66 121/66 110/67 06/22/20 09:09 Temperature Pulse Rate 81 Blood Pressure 115/59 L Body Mass Index 30.2 Labs Results: 06/14/20 19:20 06/21/20 09:05 Labs: Laboratory Results - last 48 hr 06/21/20 09:05 Sodium 134 L Potassium 4.7 Chloride 97 Carbon Dioxide 33 H Anion Gap 9 L BUN 13 Creatinine 0.83 Estim Creat Clear Calc 104.9 Estimated GFR > 60 Random Glucose 96 Calcium 8.8 Total Bilirubin 0.3 AST 74 H ALT 149 H Alkaline Phosphatase 59 Total Protein 6.9 Albumin 4.0 Medications Medications Current Medications Generic Name Dose Route Start Last Admin Trade Name Freq PRN Reason Stop Dose Admin Acetaminophen 650 mg 06/17/20 00:01 06/18/20 16:51 Acetaminophen 325 Mg Tablet PO 650 mg Q6H PRN Administration HEADACHE/PAIN.MAIN (SCALE 1-3) Al Hydroxide/Mg Hydroxide 30 ml 06/17/20 00:01 06/19/20 09:19 Magnesium Hydrox/Alum Hydrox 30 Ml Oral.Susp PO 30 ml Q6H PRN Administration HEARTBURN/NAUSEA Benztropine Mesylate 0.5 mg 06/17/20 08:30 06/22/20 09:22 Benztropine Mesylate 0.5 Mg Tablet PO Not Given BID@0830,2100 [facility] Buprenorphine/Naloxone 1 film 06/17/20 09:00 06/22/20 09:06 Buprenorphine/Naloxone 8/2 Mg Film SUBLINGUAL 1 film DAILY CHANDA Administration Buspirone HCl 10 mg 06/17/20 08:30 06/22/20 09:22 Buspirone Hcl 10 Mg Tablet PO Not Given TID@0830,1330,2100 [facility] Clonidine HCl 0.1 mg 06/19/20 19:46 06/22/20 09:09 Clonidine Hcl 0.1 Mg Tablet PO 0.1 mg BID PRN Administration anxiety/restlessness Docusate Sodium 100 mg 06/17/20 00:01 Docusate Sodium 100 Mg Capsule PO BID PRN Constipation Hydroxyzine HCl 25 mg 06/17/20 21:00 06/19/20 00:49 Hydroxyzine Hcl 25 Mg Tablet PO 25 mg BEDTIME MRX1 PRN Administration NIGHT TIME ANXIETY Ibuprofen 600 mg 06/17/20 14:02 06/18/20 21:01 Ibuprofen 600 Mg Tablet PO 600 mg Q6H PRN Administration Pain, Moderate (Pain Scale 4-6 Lorazepam 0.5 mg 06/20/20 12:07 06/21/20 21:50 Lorazepam 1 Mg Tablet PO 0.5 mg TID PRN Administration restlessness/anxiety Magnesium Hydroxide 30 ml 06/17/20 00:01 Milk Of Magnesia 30 Ml Oral.Susp PO Q24H PRN Constipation Multivitamins/Vitamin C 1 tab 06/17/20 09:00 06/22/20 09:06 Multivitamin Tablet PO 1 tab DAILY CHANDA Administration Nicotine Polacrilex 2 mg 06/17/20 00:01 Nicotine Polacrilex 2 Mg Gum BUCCAL Q2H PRN Nicotine Cravings Omeprazole 20 mg 06/17/20 06:30 06/22/20 09:06 Omeprazole 20 Mg Capsule.Dr PO 20 mg DAILY@0630 CHANDA Administration Oxcarbazepine 600 mg 06/17/20 08:30 06/22/20 09:06 Oxcarbazepine 300 Mg Tablet PO 600 mg BID@0830,2100 CHANDA Administration Perphenazine 8 mg 06/17/20 00:01 Perphenazine 8 Mg Tablet PO Q4H PRN anxiety/restlessness Perphenazine 8 mg 06/17/20 09:00 06/22/20 09:06 Perphenazine 8 Mg Tablet PO 8 mg TID CHANDA Administration Risperidone 1 mg 06/21/20 10:45 06/22/20 09:22 Risperidone 1 Mg Tablet PO Not Given BID CHANDA Trazodone HCl 200 mg 06/17/20 21:00 06/22/20 00:46 Trazodone Hcl 100 Mg Tablet PO 200 mg BEDTIME CHANDA Administration Trazodone HCl 50 mg 06/17/20 21:00 06/19/20 00:49 Trazodone Hcl 50 Mg Tablet PO 50 mg BEDTIME MRX1 PRN Administration Insomnia Triamcinolone Acetonide 1 appl 06/17/20 08:30 06/22/20 09:11 Triamcinolone Acet 0.5 % Cream 15 Gm Tube TOPICAL 1 appl BID@0830,2100 CHANDA Administration Zolpidem Tartrate 5 mg 06/17/20 21:00 Zolpidem Tartrate 5 Mg Tablet PO BEDTIME MRX1 PRN Insomnia Allergies Allergies Allergy/AdvReac Type Severity Reaction Status Date / Time haloperidol [From HALDOL] Allergy Intermediate UNKNOWN Verified 06/17/20 16:04
--- NOTE | 2020-06-22 09:31 | HO.PSYCHPN ---
Assessment & Plan Assessment & Plan (1) Schizophrenia: Status: Acute Code(s): F20.9 - Schizophrenia, unspecified Assessment and Plan: Risperdal consta to be initiated when available. Prescription was sent to [facility] (2) Lack of housing: Status: Acute Code(s): Z59.0 - Homelessness Assessment and Plan: SW coordinating with [facility] and [facility] Greater than 50% of the session was spent on counseling and/or coordination of care Subjective Subjective Date of Service: 06/22/20 Reason For Visit: Unspecified Psychotic Subjective Notes: [place] Warning, Tompkins Order and Legal Status (7) Interim History: Maurice became extremely irritable when he was offered risperdal as a test dose. This is needed prior to risperdal consta which is on his Tompkins Order. He was screaming at the top of his lungs, swearing and using profane language about this hand sign writer. Security was called and he eventually agreed to take the medications as prescribed. He has been insistent that he is leaving today, and has needed constant re-direction from staff. He has been standing at the door demanding that he should leave. He is not able to process that his anger, agitation and rageful outbursts suggest that he is not safe to leave. He also has no home to go to since he can not go to [facility]. Medication Compliance: Intermittent Attending Groups: No Review of Systems Acute medical concerns: No Medical Review of Systems: unchanged Mental Status Exam Mental Status Exam Patient Appearance: Disheveled Patient Orientation: Person, Place and Time Level of Consciousness: Restless and Combative Patient Behavior: Aggressive, Belligerent, Swearing, Invasion - Personal Space, Uncooperative and Impulsive Mood Description: Hostile and Angry Affect Description: Hostile and Angry Patient Cognition Impaired: No Ability to Follow Directions: Poor Speech Pattern: Perseverating, Loud and Includes Profanity Memory Description: Intact Hallucinations: None Delusions: Being Controlled, Paranoid Ideation and Ideas of Reference Thought Process: Goal Oriented Thought Content: positive for [place] Depressive Symptoms: Increased Irritability Abnormal Motor Activity Signs and Symptoms: Aggression Judgement: Poor Judgement and Insight: Poor Diagnostics Vital Signs (24Hr): Vital Signs - 24 hr 06/21/20 16:50 06/21/20 16:53 06/22/20 00:49 Temperature 97.1 F Pulse Rate 77 77 65 Blood Pressure 121/66 121/66 110/67 06/22/20 09:09 Temperature Pulse Rate 81 Blood Pressure 115/59 L Body Mass Index 30.2 Labs Results: 06/14/20 19:20 06/21/20 09:05 Labs: Laboratory Results - last 48 hr 06/21/20 09:05 Sodium 134 L Potassium 4.7 Chloride 97 Carbon Dioxide 33 H Anion Gap 9 L BUN 13 Creatinine 0.83 Estim Creat Clear Calc 104.9 Estimated GFR > 60 Random Glucose 96 Calcium 8.8 Total Bilirubin 0.3 AST 74 H ALT 149 H Alkaline Phosphatase 59 Total Protein 6.9 Albumin 4.0 Medications Medications Current Medications Generic Name Dose Route Start Last Admin Trade Name Freq PRN Reason Stop Dose Admin Acetaminophen 650 mg 06/17/20 00:01 06/18/20 16:51 Acetaminophen 325 Mg Tablet PO 650 mg Q6H PRN Administration HEADACHE/PAIN.MAIN (SCALE 1-3) Al Hydroxide/Mg Hydroxide 30 ml 06/17/20 00:01 06/19/20 09:19 Magnesium Hydrox/Alum Hydrox 30 Ml Oral.Susp PO 30 ml Q6H PRN Administration HEARTBURN/NAUSEA Benztropine Mesylate 0.5 mg 06/17/20 08:30 06/22/20 09:22 Benztropine Mesylate 0.5 Mg Tablet PO Not Given BID@0830,2100 [facility] Buprenorphine/Naloxone 1 film 06/17/20 09:00 06/22/20 09:06 Buprenorphine/Naloxone 8/2 Mg Film SUBLINGUAL 1 film DAILY CHANDA Administration Buspirone HCl 10 mg 06/17/20 08:30 06/22/20 09:22 Buspirone Hcl 10 Mg Tablet PO Not Given TID@0830,1330,2100 [facility] Clonidine HCl 0.1 mg 06/19/20 19:46 06/22/20 09:09 Clonidine Hcl 0.1 Mg Tablet PO 0.1 mg BID PRN Administration anxiety/restlessness Docusate Sodium 100 mg 06/17/20 00:01 Docusate Sodium 100 Mg Capsule PO BID PRN Constipation Hydroxyzine HCl 25 mg 06/17/20 21:00 06/19/20 00:49 Hydroxyzine Hcl 25 Mg Tablet PO 25 mg BEDTIME MRX1 PRN Administration NIGHT TIME ANXIETY Ibuprofen 600 mg 06/17/20 14:02 06/18/20 21:01 Ibuprofen 600 Mg Tablet PO 600 mg Q6H PRN Administration Pain, Moderate (Pain Scale 4-6 Lorazepam 0.5 mg 06/20/20 12:07 06/21/20 21:50 Lorazepam 1 Mg Tablet PO 0.5 mg TID PRN Administration restlessness/anxiety Magnesium Hydroxide 30 ml 06/17/20 00:01 Milk Of Magnesia 30 Ml Oral.Susp PO Q24H PRN Constipation Multivitamins/Vitamin C 1 tab 06/17/20 09:00 06/22/20 09:06 Multivitamin Tablet PO 1 tab DAILY CHANDA Administration Nicotine Polacrilex 2 mg 06/17/20 00:01 Nicotine Polacrilex 2 Mg Gum BUCCAL Q2H PRN Nicotine Cravings Omeprazole 20 mg 06/17/20 06:30 06/22/20 09:06 Omeprazole 20 Mg Capsule.Dr PO 20 mg DAILY@0630 CHANDA Administration Oxcarbazepine 600 mg 06/17/20 08:30 06/22/20 09:06 Oxcarbazepine 300 Mg Tablet PO 600 mg BID@829,2099 CHANDA Administration Perphenazine 8 mg 06/17/20 00:01 Perphenazine 8 Mg Tablet PO Q4H PRN anxiety/restlessness Perphenazine 8 mg 06/17/20 09:00 06/22/20 09:06 Perphenazine 8 Mg Tablet PO 8 mg TID CHANDA Administration Risperidone 1 mg 06/21/20 10:45 06/22/20 09:22 Risperidone 1 Mg Tablet PO Not Given BID CHANDA Trazodone HCl 200 mg 06/17/20 21:00 06/22/20 00:46 Trazodone Hcl 100 Mg Tablet PO 200 mg BEDTIME CHANDA Administration Trazodone HCl 50 mg 06/17/20 21:00 06/19/20 00:49 Trazodone Hcl 50 Mg Tablet PO 50 mg BEDTIME MRX1 PRN Administration Insomnia Triamcinolone Acetonide 1 appl 06/17/20 08:30 06/22/20 09:11 Triamcinolone Acet 0.5 % Cream 15 Gm Tube TOPICAL 1 appl BID@30,2099 CHANDA Administration Zolpidem Tartrate 5 mg 06/17/20 21:00 Zolpidem Tartrate 5 Mg Tablet PO BEDTIME MRX1 PRN Insomnia Allergies Allergies Allergy/AdvReac Type Severity Reaction Status Date / Time [facility] Allergy Intermediate UNKNOWN Verified 06/17/20 16:04
[2020-06-22] MEDS: LORazepam 1 MG TABLET 0.5 MG PO ×2 (10:22→17:06)
[2020-06-22] MEDS: risperiDONE 1 MG TABLET PO ×2 (10:22→22:09)
[2020-06-22] MEDS: LORazepam 1 MG TABLET PO (10:39)
[2020-06-22 18:00] VITALS: BP 115/69; TEMP 35.8
[2020-06-22] MEDS: Ibuprofen 600 MG TABLET PO (19:23)
[2020-06-22] MEDS: Benztropine Mesylate 0.5 MG TABLET PO (22:10)
[2020-06-22] MEDS: busPIRone HCl 10 MG TABLET PO (23:24)
[2020-06-23] MEDS: Ibuprofen 600 MG TABLET PO (05:40)
[2020-06-23] MEDS: Omeprazole 20 MG CAPSULE.DR PO (05:41)
[2020-06-23 06:00] VITALS: BP 104/71; PULSE 73; RESP 16; TEMP 36.1
--- NOTE | 2020-06-23 09:22 | HO.PSYCHPN ---
Assessment & Plan Assessment & Plan (1) Schizophrenia: Qualifiers: Schizophrenia type: paranoid schizophrenia Qualified Code(s): F20.0 - Paranoid schizophrenia Status: Acute Code(s): F20.9 - Schizophrenia, unspecified Assessment and Plan: Cont risperidone. Court hearing in a week (2) Psychosis: Qualifiers: Psychosis type: schizophrenia Status: Acute Code(s): F29 - Unspecified psychosis not due to a substance or known physiological condition Greater than 50% of the session was spent on counseling and/or coordination of care Subjective Subjective Date of Service: 06/23/20 Reason For Visit: Unspecified Psychotic Subjective Notes: Legal Status (Sect 7) Interim History: patient was calmer today with no outburst the past 24 hours. 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 We discussed behavioral expectations on the unit. Patient has been compliant with risperidone. We did not discuss his upcoming court hearing. Continue to build therapeutic [place] Medication Compliance: Yes Side effects from medications: No Attending Groups: Intermittent Mental Status Exam Mental Status Exam Patient Appearance: Disheveled Patient Orientation: Person, Place, Time and Situation Level of Consciousness: Awake Patient Behavior: Appropriate, Cooperative and Passive Mood Description: Calm Affect Description: Calm Patient Cognition Impaired: No Ability to Follow Directions: Good Speech Pattern: Clear Memory Description: Intact Hallucinations: None Delusions: Not Present Thought Process: Intact Thought Content: positive for Intact Judgement: Poor Diagnostics Vital Signs (24Hr): Vital Signs - 24 hr 06/22/20 18:00 06/23/20 06:00 Temperature 96.5 F L 97.0 F Pulse Rate 73 Respiratory Rate 16 Blood Pressure 115/69 104/71 Body Mass Index 30.2 Labs Results: 06/14/20 19:20 06/21/20 09:05 Labs: Laboratory Results - last 48 hr 06/21/20 09:05 Sodium 134 L Potassium 4.7 Chloride 97 Carbon Dioxide 33 H Anion Gap 9 L BUN 13 Creatinine 0.83 Estim Creat Clear Calc 104.9 Estimated GFR > 60 Random Glucose 96 Calcium 8.8 Total Bilirubin 0.3 AST 74 H ALT 149 H Alkaline Phosphatase 59 Total Protein 6.9 Albumin 4.0 Medications Medications Current Medications Generic Name Dose Route Start Last Admin Trade Name Freq PRN Reason Stop Dose Admin Acetaminophen 650 mg 06/17/20 00:01 06/18/20 16:51 Acetaminophen 325 Mg Tablet PO 650 mg Q6H PRN Administration HEADACHE/PAIN.MAIN (SCALE 1-3) Al Hydroxide/Mg Hydroxide 30 ml 06/17/20 00:01 06/19/20 09:19 Magnesium Hydrox/Alum Hydrox 30 Ml Oral.Susp PO 30 ml Q6H PRN Administration HEARTBURN/NAUSEA Benztropine Mesylate 0.5 mg 06/17/20 08:30 06/22/20 22:10 Benztropine Mesylate 0.5 Mg Tablet PO 0.5 mg BID@0830,2100 CHANDA Administration Buprenorphine/Naloxone 1 film 06/17/20 09:00 06/22/20 09:06 Buprenorphine/Naloxone 8/2 Mg Film SUBLINGUAL 1 film DAILY CHANDA Administration Buspirone HCl 10 mg 06/17/20 08:30 06/22/20 23:24 Buspirone Hcl 10 Mg Tablet PO 10 mg TID@0830,1330,2100 CHANDA Administration Clonidine HCl 0.1 mg 06/19/20 19:46 06/22/20 23:25 Clonidine Hcl 0.1 Mg Tablet PO 0.1 mg BID PRN Administration anxiety/restlessness Docusate Sodium 100 mg 06/17/20 00:01 Docusate Sodium 100 Mg Capsule PO BID PRN Constipation Hydroxyzine HCl 25 mg 06/17/20 21:00 06/19/20 00:49 Hydroxyzine Hcl 25 Mg Tablet PO 25 mg BEDTIME MRX1 PRN Administration NIGHT TIME ANXIETY Ibuprofen 600 mg 06/17/20 14:02 06/23/20 05:40 Ibuprofen 600 Mg Tablet PO 600 mg Q6H PRN Administration Pain, Moderate (Pain Scale 4-6 Lorazepam 0.5 mg 06/20/20 12:07 06/22/20 17:06 Lorazepam 1 Mg Tablet PO 0.5 mg TID PRN Administration restlessness/anxiety Magnesium Hydroxide 30 ml 06/17/20 00:01 Milk Of Magnesia 30 Ml Oral.Susp PO Q24H PRN Constipation Multivitamins/Vitamin C 1 tab 06/17/20 09:00 06/22/20 09:06 Multivitamin Tablet PO 1 tab DAILY CHANDA Administration Nicotine Polacrilex 2 mg 06/17/20 00:01 Nicotine Polacrilex 2 Mg Gum BUCCAL Q2H PRN Nicotine Cravings Omeprazole 20 mg 06/17/20 06:30 06/23/20 05:41 Omeprazole 20 Mg Capsule.Dr PO 20 mg DAILY@0630 CHANDA Administration Oxcarbazepine 600 mg 06/17/20 08:30 06/22/20 22:10 Oxcarbazepine 300 Mg Tablet PO 600 mg BID@0830,2099 CHANDA Administration Perphenazine 8 mg 06/17/20 00:01 Perphenazine 8 Mg Tablet PO Q4H PRN anxiety/restlessness Perphenazine 8 mg 06/17/20 09:00 06/22/20 22:10 Perphenazine 8 Mg Tablet PO 8 mg TID CHANDA Administration Risperidone 1 mg 06/21/20 10:45 06/22/20 22:09 Risperidone 1 Mg Tablet PO 1 mg BID CHANDA Administration Trazodone HCl 200 mg 06/17/20 21:00 06/22/20 22:09 Trazodone Hcl 100 Mg Tablet PO 200 mg BEDTIME CHANDA Administration Trazodone HCl 50 mg 06/17/20 21:00 06/19/20 00:49 Trazodone Hcl 50 Mg Tablet PO 50 mg BEDTIME MRX1 PRN Administration Insomnia Triamcinolone Acetonide 1 appl 06/17/20 08:30 06/22/20 23:09 Triamcinolone Acet 0.5 % Cream 15 Gm Tube TOPICAL 1 appl BID@829,2099 CHANDA Administration Zolpidem Tartrate 5 mg 06/17/20 21:00 Zolpidem Tartrate 5 Mg Tablet PO BEDTIME MRX1 PRN Insomnia Allergies Allergies Allergy/AdvReac Type Severity Reaction Status Date / Time haloperidol [From HALDOL] Allergy Intermediate UNKNOWN Verified 06/17/20 16:04
[2020-06-23] MEDS: Benztropine Mesylate 0.5 MG TABLET PO ×2 (09:28→20:56)
[2020-06-23] MEDS: OXcarbazepine 300 MG TABLET 600 MG PO ×2 (09:29→21:04)
[2020-06-23] MEDS: risperiDONE 1 MG TABLET PO ×3 (09:29→21:07)
[2020-06-23] MEDS: Multivitamin TABLET 1 TAB PO (09:29)
[2020-06-23] MEDS: Perphenazine 8 MG TABLET PO ×3 (09:29→21:03)
[2020-06-23] MEDS: Buprenorphine/Naloxone 8/2 mg FILM 1 FILM SUBLINGUAL (09:29)
[2020-06-23] MEDS: busPIRone HCl 10 MG TABLET PO ×3 (09:34→20:56)
[2020-06-23] MEDS: Triamcinolone Acet 0.5 % Cream 15 GM TUBE 1 APPL TOPICAL (09:35)
[2020-06-23 11:02] VITALS: PULSE 72
[2020-06-23] MEDS: cloNIDine HCL 0.1 MG TABLET PO (11:02)
[2020-06-23] MEDS: LORazepam 1 MG TABLET 0.5 MG PO (17:54)
[2020-06-23 18:00] VITALS: BP 121/74; PULSE 110; TEMP 36
[2020-06-23] MEDS: traZODone HCL 100 MG TABLET 200 MG PO (21:05)
[2020-06-23] MEDS: Zolpidem Tartrate 5 MG TABLET PO (21:15)
[2020-06-24 06:32] VITALS: BP 122/72; PULSE 65; RESP 16; TEMP 36.2; O2SAT 96
[2020-06-24 07:00] VITALS: BMI 30.1
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
[2020-06-24] MEDS: Buprenorphine/Naloxone 8/2 mg FILM 1 FILM SUBLINGUAL (09:06)
[2020-06-24] MEDS: OXcarbazepine 300 MG TABLET 600 MG PO ×2 (09:07→20:40)
[2020-06-24] MEDS: Omeprazole 20 MG CAPSULE.DR PO (09:07)
[2020-06-24] MEDS: Perphenazine 8 MG TABLET PO ×3 (09:07→20:43)
[2020-06-24] MEDS: Multivitamin TABLET 1 TAB PO (09:07)
[2020-06-24] MEDS: Benztropine Mesylate 0.5 MG TABLET PO ×2 (09:09→20:42)
[2020-06-24] MEDS: risperiDONE 1 MG TABLET PO ×2 (09:26→20:43)
[2020-06-24 09:42] VITALS: BP 122/72; PULSE 65
[2020-06-24] MEDS: cloNIDine HCL 0.1 MG TABLET PO (09:42)
[2020-06-24] MEDS: Triamcinolone Acet 0.5 % Cream 15 GM TUBE 1 APPL TOPICAL ×2 (09:45→21:15)
[2020-06-24] MEDS: busPIRone HCl 10 MG TABLET PO ×2 (13:32→21:13)
[2020-06-24 18:00] VITALS: BP 136/69; PULSE 73; RESP 18; TEMP 36.6
[2020-06-24] MEDS: traZODone HCL 100 MG TABLET 200 MG PO (20:42)
[2020-06-24] MEDS: Zolpidem Tartrate 5 MG TABLET PO (20:42)
[2020-06-24] MEDS: LORazepam 1 MG TABLET 0.5 MG PO (20:43)
[2020-06-25 06:28] VITALS: BP 101/65; PULSE 75; RESP 18; TEMP 36.6; O2SAT 95
--- NOTE | 2020-06-25 08:03 | HO.PSYCHPN ---
Subjective Subjective Reason For Visit: Unspecified Psychotic Interim History: Easily irritable explosive. Misinterprets staff responses. Encouraged to call [facility] as he is not trusting of staff here. Also described how [facility] Patient has been compliant with risperidone. Agrees to increase to 3 mg . Pt states he will comply with meds and good behavior to avoid court hearing. Continue to build therapeutic [place] Mental Status Exam Mental Status Exam Narrative: today not wearing mask at all and stands in cliff close to other pt s Patient Appearance: Disheveled Patient Orientation: Person, Place, Time and Situation Level of Consciousness: Awake Patient Behavior: Restless Mood Description: Calm, Anxious, Labile and Angry Affect Description: Calm Patient Cognition Impaired: No Ability to Follow Directions: Good Speech Pattern: Clear Memory Description: Intact Delusions: Paranoid Ideation Thought Content: positive for Racing Abnormal Motor Activity Signs and Symptoms: Agitation and Restlessness Diagnostics Vital Signs (24Hr): Vital Signs - 24 hr 06/24/20 09:42 06/24/20 18:00 06/25/20 06:28 Temperature 97.9 F 97.8 F Pulse Rate 65 73 75 Respiratory Rate 18 18 Blood Pressure 122/72 136/69 101/65 Pulse Oximetry 95 Body Mass Index 30.1 Labs Results: 06/14/20 19:20 06/21/20 09:05 Medications Medications Current Medications Generic Name Dose Route Start Last Admin Trade Name Freq PRN Reason Stop Dose Admin Acetaminophen 650 mg 06/17/20 00:01 06/18/20 16:51 Acetaminophen 325 Mg Tablet PO 650 mg Q6H PRN Administration HEADACHE/PAIN.MAIN (SCALE 1-3) Al Hydroxide/Mg Hydroxide 30 ml 06/17/20 00:01 06/19/20 09:19 Magnesium Hydrox/Alum Hydrox 30 Ml Oral.Susp PO 30 ml Q6H PRN Administration HEARTBURN/NAUSEA Benztropine Mesylate 0.5 mg 06/17/20 08:30 06/24/20 20:42 Benztropine Mesylate 0.5 Mg Tablet PO 0.5 mg BID@0830,2100 CHANDA Administration Buprenorphine/Naloxone 1 film 06/17/20 09:00 06/24/20 09:06 Buprenorphine/Naloxone 8/2 Mg Film SUBLINGUAL 1 film DAILY CHANDA Administration Buspirone HCl 10 mg 06/17/20 08:30 06/24/20 21:13 Buspirone Hcl 10 Mg Tablet PO 10 mg TID@0830,1330,2100 CHANDA Administration Calcium Carbonate 750 mg 06/24/20 20:08 Calcium Carbonate 750 Mg Tab.Chew PO Q6H PRN Heartburn Clonidine HCl 0.1 mg 06/19/20 19:46 06/24/20 09:42 Clonidine Hcl 0.1 Mg Tablet PO 0.1 mg BID PRN Administration anxiety/restlessness Docusate Sodium 100 mg 06/17/20 00:01 Docusate Sodium 100 Mg Capsule PO BID PRN Constipation Hydroxyzine HCl 25 mg 06/17/20 21:00 06/19/20 00:49 Hydroxyzine Hcl 25 Mg Tablet PO 25 mg BEDTIME MRX1 PRN Administration NIGHT TIME ANXIETY Ibuprofen 600 mg 06/17/20 14:02 06/23/20 05:40 Ibuprofen 600 Mg Tablet PO 600 mg Q6H PRN Administration Pain, Moderate (Pain Scale 4-6 Lorazepam 0.5 mg 06/20/20 12:07 06/24/20 20:43 Lorazepam 1 Mg Tablet PO 0.5 mg TID PRN Administration restlessness/anxiety Magnesium Hydroxide 30 ml 06/17/20 00:01 Milk Of Magnesia 30 Ml Oral.Susp PO Q24H PRN Constipation Multivitamins/Vitamin C 1 tab 06/17/20 09:00 06/24/20 09:07 Multivitamin Tablet PO 1 tab DAILY CHANDA Administration Nicotine Polacrilex 2 mg 06/17/20 00:01 Nicotine Polacrilex 2 Mg Gum BUCCAL Q2H PRN Nicotine Cravings Omeprazole 20 mg 06/17/20 06:30 06/24/20 09:07 Omeprazole 20 Mg Capsule.Dr PO 20 mg DAILY@0630 CHANDA Administration Oxcarbazepine 600 mg 06/17/20 08:30 06/24/20 20:40 Oxcarbazepine 300 Mg Tablet PO 600 mg BID@0830,2100 CHANDA Administration Perphenazine 8 mg 06/17/20 00:01 Perphenazine 8 Mg Tablet PO Q4H PRN anxiety/restlessness Perphenazine 8 mg 06/17/20 09:00 06/24/20 20:43 Perphenazine 8 Mg Tablet PO 8 mg TID CHANAD Administration Risperidone 1 mg 06/21/20 10:45 06/24/20 20:43 Risperidone 1 Mg Tablet PO 1 mg BID CHANDA Administration Trazodone HCl 200 mg 06/17/20 21:00 06/24/20 20:42 Trazodone Hcl 100 Mg Tablet PO 200 mg BEDTIME CHANDA Administration Trazodone HCl 50 mg 06/17/20 21:00 06/19/20 00:49 Trazodone Hcl 50 Mg Tablet PO 50 mg BEDTIME MRX1 PRN Administration Insomnia Triamcinolone Acetonide 1 appl 06/17/20 08:30 06/24/20 21:15 Triamcinolone Acet 0.5 % Cream 15 Gm Tube TOPICAL 1 appl BID@0830,2100 CHANDA Administration Zolpidem Tartrate 5 mg 06/17/20 21:00 06/24/20 20:42 Zolpidem Tartrate 5 Mg Tablet PO 5 mg BEDTIME MRX1 PRN Administration Insomnia Allergies Allergies Allergy/AdvReac Type Severity Reaction Status Date / Time haloperidol [From HALDOL] Allergy Intermediate UNKNOWN Verified 06/17/20 16:04 Assessment & Plan Assessment & Plan (1) Schizophrenia: Qualifiers: Schizophrenia type: paranoid schizophrenia Qualified Code(s): F20.0 - Paranoid schizophrenia Status: Acute Code(s): F20.9 - Schizophrenia, unspecified Assessment and Plan: Cont risperidone. Court hearing on . Increase Risp (2) Psychosis: Qualifiers: Psychosis type: schizophrenia Status: Acute Code(s): F29 - Unspecified psychosis not due to a substance or known physiological condition Greater than 50% of the session was spent on counseling and/or coordination of care
[2020-06-25] MEDS: Perphenazine 8 MG TABLET PO ×3 (09:47→21:42)
[2020-06-25] MEDS: Benztropine Mesylate 0.5 MG TABLET PO ×2 (09:47→21:42)
[2020-06-25] MEDS: OXcarbazepine 300 MG TABLET 600 MG PO ×2 (09:47→21:41)
[2020-06-25] MEDS: Multivitamin TABLET 1 TAB PO (09:47)
[2020-06-25] MEDS: risperiDONE 1 MG TABLET PO (09:47)
[2020-06-25] MEDS: Buprenorphine/Naloxone 8/2 mg FILM 1 FILM SUBLINGUAL (09:47)
[2020-06-25] MEDS: Omeprazole 20 MG CAPSULE.DR PO (09:47)
[2020-06-25] MEDS: Triamcinolone Acet 0.5 % Cream 15 GM TUBE 1 APPL TOPICAL ×2 (09:48→21:43)
[2020-06-25 09:50] VITALS: BP 101/65; PULSE 75
[2020-06-25] MEDS: cloNIDine HCL 0.1 MG TABLET PO (09:50)
[2020-06-25] MEDS: busPIRone HCl 10 MG TABLET PO ×3 (09:51→21:41)
[2020-06-25 18:00] VITALS: BP 138/68; PULSE 83; TEMP 36.7
[2020-06-25] MEDS: Nicotine Polacrilex 2 MG GUM BUCCAL (19:32)
[2020-06-25] MEDS: traZODone HCL 100 MG TABLET 200 MG PO (21:42)
[2020-06-25] MEDS: risperiDONE 2 MG TABLET PO (21:42)
[2020-06-25] MEDS: Zolpidem Tartrate 5 MG TABLET PO (22:24)
[2020-06-25] MEDS: Milk of Magnesia 30 ML ORAL.SUSP PO (23:01)
[2020-06-26 00:07] VITALS: BP 137/81; PULSE 71
[2020-06-26] MEDS: cloNIDine HCL 0.1 MG TABLET PO ×2 (00:07→15:57)
[2020-06-26] MEDS: hydrOXYzine HCL 25 MG TABLET PO (00:42)
[2020-06-26] MEDS: Buprenorphine/Naloxone 8/2 mg FILM 1 FILM SUBLINGUAL (09:29)
[2020-06-26] MEDS: Benztropine Mesylate 0.5 MG TABLET PO ×2 (09:29→21:41)
[2020-06-26] MEDS: Multivitamin TABLET 1 TAB PO (09:29)
[2020-06-26] MEDS: Perphenazine 8 MG TABLET PO ×3 (09:29→21:41)
[2020-06-26] MEDS: risperiDONE 1 MG TABLET PO (09:29)
[2020-06-26] MEDS: Omeprazole 20 MG CAPSULE.DR PO (09:29)
[2020-06-26] MEDS: Triamcinolone Acet 0.5 % Cream 15 GM TUBE 1 APPL TOPICAL ×2 (09:30→21:50)
[2020-06-26] MEDS: busPIRone HCl 10 MG TABLET PO ×3 (09:30→21:41)
[2020-06-26] MEDS: OXcarbazepine 300 MG TABLET 600 MG PO ×2 (09:30→21:41)
[2020-06-26] MEDS: Docusate Sodium 100 MG CAPSULE PO (09:41)
[2020-06-26 11:46] VITALS: BP 125/76; PULSE 71; TEMP 36.1; O2SAT 95
[2020-06-26 15:57] VITALS: BP 130/64; PULSE 66
[2020-06-26 18:00] VITALS: BP 130/64; PULSE 66; TEMP 35.9
--- NOTE | 2020-06-26 19:30 | HO.PSYCHPN ---
Subjective Subjective Date of Service: 06/26/20 Reason For Visit: Unspecified Psychotic Subjective Notes: [place] Warning, [place] Order and Legal Status (s7) Interim History: Maurice was notably improved. He was calmer and more able to engage in a reasonable conversation. He was reflective on his behaviors and his anger. 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 Medication Compliance: Yes Side effects from medications: No Attending Groups: Intermittent Review of Systems Acute medical concerns: No Medical Review of Systems: unchanged Review of Systems Review of Systems Yes all other systems are reviewed and are negative Mental Status Exam Mental Status Exam Narrative: today not wearing mask at all and stands in cliff close to other pt s Patient Appearance: Disheveled Patient Orientation: Person, Place, Time and Situation Level of Consciousness: Awake Patient Behavior: Appropriate and Cooperative Mood Description: Calm and Anxious Affect Description: Calm Patient Cognition Impaired: No Ability to Follow Directions: Good Speech Pattern: Clear and Appropriate Memory Description: Intact Hallucinations: None Delusions: Paranoid Ideation Thought Process: Goal Oriented Thought Content: positive for Racing and positive for Circumstantial Abnormal Motor Activity Signs and Symptoms: Agitation and Restlessness Judgement: Fair Diagnostics Vital Signs (24Hr): Vital Signs - 24 hr 06/26/20 00:07 06/26/20 11:46 06/26/20 15:57 Temperature 97 F Pulse Rate 71 71 66 Blood Pressure 137/81 125/76 130/64 Pulse Oximetry 95 Body Mass Index 30.1 Labs Results: 06/14/20 19:20 06/21/20 09:05 Medications Medications Current Medications Generic Name Dose Route Start Last Admin Trade Name Freq PRN Reason Stop Dose Admin Acetaminophen 650 mg 06/17/20 00:01 06/18/20 16:51 Acetaminophen 325 Mg Tablet PO 650 mg Q6H PRN Administration HEADACHE/PAIN.MAIN (SCALE 1-3) Al Hydroxide/Mg Hydroxide 30 ml 06/17/20 00:01 06/19/20 09:19 Magnesium Hydrox/Alum Hydrox 30 Ml Oral.Susp PO 30 ml Q6H PRN Administration HEARTBURN/NAUSEA Benztropine Mesylate 0.5 mg 06/17/20 08:30 06/26/20 09:29 Benztropine Mesylate 0.5 Mg Tablet PO 0.5 mg BID@0830,2100 CHANDA Administration Buprenorphine/Naloxone 1 film 06/17/20 09:00 06/26/20 09:29 Buprenorphine/Naloxone 8/2 Mg Film SUBLINGUAL 1 film DAILY CHANDA Administration Buspirone HCl 10 mg 06/17/20 08:30 06/26/20 13:53 Buspirone Hcl 10 Mg Tablet PO 10 mg TID@0830,1330,2100 CHANDA Administration Calcium Carbonate 750 mg 06/24/20 20:08 Calcium Carbonate 750 Mg Tab.Chew PO Q6H PRN Heartburn Clonidine HCl 0.1 mg 06/19/20 19:46 06/26/20 15:57 Clonidine Hcl 0.1 Mg Tablet PO 0.1 mg BID PRN Administration anxiety/restlessness Docusate Sodium 100 mg 06/17/20 00:01 06/26/20 09:41 Docusate Sodium 100 Mg Capsule PO 100 mg BID PRN Administration Constipation Hydroxyzine HCl 25 mg 06/17/20 21:00 06/26/20 00:42 Hydroxyzine Hcl 25 Mg Tablet PO 25 mg BEDTIME MRX1 PRN Administration NIGHT TIME ANXIETY Ibuprofen 600 mg 06/17/20 14:02 06/23/20 05:40 Ibuprofen 600 Mg Tablet PO 600 mg Q6H PRN Administration Pain, Moderate (Pain Scale 4-6 Magnesium Hydroxide 30 ml 06/17/20 00:01 06/25/20 23:01 Milk Of Magnesia 30 Ml Oral.Susp PO 30 ml Q24H PRN Administration Constipation Multivitamins/Vitamin C 1 tab 06/17/20 09:00 06/26/20 09:29 Multivitamin Tablet PO 1 tab DAILY CHANDA Administration Nicotine Polacrilex 2 mg 06/17/20 00:01 06/25/20 19:32 Nicotine Polacrilex 2 Mg Gum BUCCAL 2 mg Q2H PRN Administration Nicotine Cravings Omeprazole 20 mg 06/17/20 06:30 06/26/20 09:29 Omeprazole 20 Mg Capsule.Dr PO 20 mg DAILY@0630 CHANDA Administration Oxcarbazepine 600 mg 06/17/20 08:30 06/26/20 09:30 Oxcarbazepine 300 Mg Tablet PO 600 mg BID@0830,2100 CHANDA Administration Perphenazine 8 mg 06/17/20 00:01 Perphenazine 8 Mg Tablet PO Q4H PRN anxiety/restlessness Perphenazine 8 mg 06/17/20 09:00 06/26/20 15:10 Perphenazine 8 Mg Tablet PO 8 mg TID CHANDA Administration Risperidone 1 mg 06/26/20 09:00 06/26/20 09:29 Risperidone 1 Mg Tablet PO 1 mg DAILY CHANDA Administration Risperidone 2 mg 06/25/20 21:00 06/25/20 21:42 Risperidone 2 Mg Tablet PO 2 mg BEDTIME CHANDA Administration Trazodone HCl 200 mg 06/17/20 21:00 06/25/20 21:42 Trazodone Hcl 100 Mg Tablet PO 200 mg BEDTIME CHANDA Administration Trazodone HCl 50 mg 06/17/20 21:00 06/19/20 00:49 Trazodone Hcl 50 Mg Tablet PO 50 mg BEDTIME MRX1 PRN Administration Insomnia Triamcinolone Acetonide 1 appl 06/17/20 08:30 06/26/20 09:30 Triamcinolone Acet 0.5 % Cream 15 Gm Tube TOPICAL 1 appl BID@0830,2100 CHANDA Administration Zolpidem Tartrate 5 mg 06/17/20 21:00 06/25/20 22:24 Zolpidem Tartrate 5 Mg Tablet PO 5 mg BEDTIME MRX1 PRN Administration Insomnia Allergies Allergies Allergy/AdvReac Type Severity Reaction Status Date / Time haloperidol [From HALDOL] Allergy Intermediate UNKNOWN Verified 06/17/20 16:04 Assessment & Plan Assessment & Plan (1) Schizophrenia: Qualifiers: Schizophrenia type: paranoid schizophrenia Qualified Code(s): F20.0 - Paranoid schizophrenia Status: Acute Code(s): F20.9 - Schizophrenia, unspecified Assessment and Plan: CT risperdal trial Consider risperdal consta Greater than 50% of the session was spent on counseling and/or coordination of care Patient educated on: diagnosis and medication risk/benefits Informed Consent: further education needed Reason for contiued inpatient stay Substantial Risk for: harm to others and rapid decompensation
[2020-06-26] MEDS: risperiDONE 2 MG TABLET PO (21:41)
[2020-06-26] MEDS: traZODone HCL 100 MG TABLET 200 MG PO (21:45)
[2020-06-26] MEDS: Zolpidem Tartrate 5 MG TABLET PO (21:45)
[2020-06-26] MEDS: Calcium Carbonate 750 MG TAB.CHEW PO (23:11)
[2020-06-27 08:15] VITALS: BP 117/62; PULSE 74; TEMP 36.4; O2SAT 95
[2020-06-27] MEDS: Multivitamin TABLET 1 TAB PO (08:32)
[2020-06-27] MEDS: Buprenorphine/Naloxone 8/2 mg FILM 1 FILM SUBLINGUAL (08:32)
[2020-06-27] MEDS: Perphenazine 8 MG TABLET PO ×4 (08:32→21:02)
[2020-06-27] MEDS: risperiDONE 1 MG TABLET PO (08:32)
[2020-06-27] MEDS: Benztropine Mesylate 0.5 MG TABLET PO ×2 (08:32→21:02)
[2020-06-27] MEDS: Omeprazole 20 MG CAPSULE.DR PO (08:32)
[2020-06-27] MEDS: OXcarbazepine 300 MG TABLET 600 MG PO ×2 (08:32→21:02)
[2020-06-27] MEDS: busPIRone HCl 10 MG TABLET PO ×3 (08:32→21:02)
[2020-06-27] MEDS: Triamcinolone Acet 0.5 % Cream 15 GM TUBE 1 APPL TOPICAL ×2 (08:33→21:45)
[2020-06-27] MEDS: Ibuprofen 600 MG TABLET PO ×2 (08:45→21:14)
[2020-06-27] MEDS: Docusate Sodium 100 MG CAPSULE PO ×2 (08:46→21:13)
[2020-06-27] MEDS: Magnesium Citrate 300 ML SOLUTION 150 ML PO (10:19)
[2020-06-27 11:10] VITALS: PULSE 94
[2020-06-27] MEDS: cloNIDine HCL 0.1 MG TABLET PO (11:10)
[2020-06-27 18:00] VITALS: BP 117/65; PULSE 68; TEMP 36.3
--- NOTE | 2020-06-27 19:10 | P.PNPSI_ITS ---
Subjective Subjective Date of Service: 06/27/20 Reason For Visit: Unspecified Psychotic Subjective Notes: [place] Warning, Tompkins Order and Legal Status (s7) Interim History: Maurice was notably improved for the most part. However he was more irritable and pacing the halls. He had an incident where he thought someone had disrespected him and he loudly slammed a door and angrily yelled at the top of his lungss He was able to calm himself down more rapidly than previously. He has become suspicious of a peer and thinks he is being targeted. He is taking his medication and has a little more understanding of the need. Medication Compliance: Yes Side effects from medications: No Attending Groups: Intermittent Review of Systems Acute medical concerns: No Medical Review of Systems: unchanged Review of Systems Review of Systems Yes all other systems are reviewed and are negative Mental Status Exam Mental Status Exam Narrative: today not wearing mask at all and stands in cliff close to other pt s Patient Appearance: Well Grooomed Patient Orientation: Person, Place, Time and Situation Level of Consciousness: Awake and Restless Patient Behavior: Appropriate, Cooperative, Suspicious and Belligerent (At times) Mood Description: Calm, Suspicious and Anxious Affect Description: Calm Patient Cognition Impaired: No Ability to Follow Directions: Good Speech Pattern: Clear, Appropriate, Loud, Pressured (During outburst) and Includes Profanity (During outburst) Memory Description: Intact Hallucinations: None Delusions: Paranoid Ideation Thought Process: Goal Oriented Thought Content: positive for Racing and positive for Circumstantial Abnormal Motor Activity Signs and Symptoms: Agitation and Restlessness Judgement: Fair Diagnostics Vital Signs (24Hr): Vital Signs - 24 hr 06/27/20 08:15 06/27/20 11:10 Temperature 97.6 F Pulse Rate 74 94 Blood Pressure 117/62 Pulse Oximetry 95 Body Mass Index 30.1 Labs Results: 06/14/20 19:20 06/21/20 09:05 Medications Medications Current Medications Generic Name Dose Route Start Last Admin Trade Name Freq PRN Reason Stop Dose Admin Acetaminophen 650 mg 06/17/20 00:01 06/18/20 16:51 Acetaminophen 325 Mg Tablet PO 650 mg Q6H PRN Administration HEADACHE/PAIN.MAIN (SCALE 1-3) Al Hydroxide/Mg Hydroxide 30 ml 06/17/20 00:01 06/19/20 09:19 Magnesium Hydrox/Alum Hydrox 30 Ml Oral.Susp PO 30 ml Q6H PRN Administration HEARTBURN/NAUSEA Benztropine Mesylate 0.5 mg 06/17/20 08:30 06/27/20 08:32 Benztropine Mesylate 0.5 Mg Tablet PO 0.5 mg BID@0830,2100 CHANDA Administration Buprenorphine/Naloxone 1 film 06/17/20 09:00 06/27/20 08:32 Buprenorphine/Naloxone 8/2 Mg Film SUBLINGUAL 1 film DAILY CHANDA Administration Buspirone HCl 10 mg 06/17/20 08:30 06/27/20 14:12 Buspirone Hcl 10 Mg Tablet PO 10 mg TID@0830,1330,2100 CHANDA Administration Calcium Carbonate 750 mg 06/24/20 20:08 06/26/20 23:11 Calcium Carbonate 750 Mg Tab.Chew PO 750 mg Q6H PRN Administration Heartburn Clonidine HCl 0.1 mg 06/19/20 19:46 06/27/20 11:10 Clonidine Hcl 0.1 Mg Tablet PO 0.1 mg BID PRN Administration anxiety/restlessness Docusate Sodium 100 mg 06/27/20 21:00 Docusate Sodium 100 Mg Capsule PO BID [facility] Hydroxyzine HCl 25 mg 06/17/20 21:00 06/26/20 00:42 Hydroxyzine Hcl 25 Mg Tablet PO 25 mg BEDTIME MRX1 PRN Administration NIGHT TIME ANXIETY Ibuprofen 600 mg 06/17/20 14:02 06/27/20 08:45 Ibuprofen 600 Mg Tablet PO 600 mg Q6H PRN Administration Pain, Moderate (Pain Scale 4-6 Magnesium Citrate 150 ml 06/27/20 10:02 06/27/20 10:19 Magnesium Citrate 300 Ml Solution PO 150 ml DAILY PRN Administration Constipation Magnesium Hydroxide 30 ml 06/17/20 00:01 06/25/20 23:01 Milk Of Magnesia 30 Ml Oral.Susp PO 30 ml Q24H PRN Administration Constipation Multivitamins/Vitamin C 1 tab 06/17/20 09:00 06/27/20 08:32 Multivitamin Tablet PO 1 tab DAILY CHANDA Administration Nicotine Polacrilex 2 mg 06/17/20 00:01 06/25/20 19:32 Nicotine Polacrilex 2 Mg Gum BUCCAL 2 mg Q2H PRN Administration Nicotine Cravings Omeprazole 20 mg 06/17/20 06:30 06/27/20 08:32 Omeprazole 20 Mg Capsule. PO 20 mg DAILY@0630 CHANDA Administration Oxcarbazepine 600 mg 06/17/20 08:30 06/27/20 08:32 Oxcarbazepine 300 Mg Tablet PO 600 mg BID@0830,2100 CHANDA Administration Perphenazine 8 mg 06/17/20 00:01 06/27/20 11:09 Perphenazine 8 Mg Tablet PO 8 mg Q4H PRN Administration anxiety/restlessness Perphenazine 8 mg 06/17/20 09:00 06/27/20 14:12 Perphenazine 8 Mg Tablet PO 8 mg TID CHANDA Administration Risperidone 1 mg 06/26/20 09:00 06/27/20 08:32 Risperidone 1 Mg Tablet PO 1 mg DAILY CHANDA Administration Risperidone 2 mg 06/25/20 21:00 06/26/20 21:41 Risperidone 2 Mg Tablet PO 2 mg BEDTIME CHANDA Administration Trazodone HCl 200 mg 06/17/20 21:00 06/26/20 21:45 Trazodone Hcl 100 Mg Tablet PO 200 mg BEDTIME CHANDA Administration Trazodone HCl 50 mg 06/17/20 21:00 06/19/20 00:49 Trazodone Hcl 50 Mg Tablet PO 50 mg BEDTIME MRX1 PRN Administration Insomnia Triamcinolone Acetonide 1 appl 06/17/20 08:30 06/27/20 08:33 Triamcinolone Acet 0.5 % Cream 15 Gm Tube TOPICAL 1 appl BID@08,2099 CHANDA Administration Zolpidem Tartrate 5 mg 06/27/20 10:40 Zolpidem Tartrate 5 Mg Tablet PO BEDTIME MRX1 PRN Insomnia Allergies Allergies Allergy/AdvReac Type Severity Reaction Status Date / Time haloperidol [From HALDOL] Allergy Intermediate UNKNOWN Verified 06/17/20 16:04 Assessment & Plan Assessment & Plan (1) Schizophrenia: Qualifiers: Schizophrenia type: paranoid schizophrenia Qualified Code(s): F20.0 - Paranoid schizophrenia Status: Acute Code(s): F20.9 - Schizophrenia, unspecified Assessment and Plan: CT current medication Greater than 50% of the session was spent on counseling and/or coordination of care Patient educated on: diagnosis, medication risk/benefits and substance abuse Informed Consent: further education needed Reason for contiued inpatient stay Substantial Risk for: harm to others, inability to function and rapid decompensation
[2020-06-27] MEDS: traZODone HCL 100 MG TABLET 200 MG PO (21:02)
[2020-06-27] MEDS: risperiDONE 2 MG TABLET PO (21:02)
[2020-06-27] MEDS: Zolpidem Tartrate 5 MG TABLET PO (21:14)
[2020-06-28 06:00] VITALS: BP 121/88; PULSE 76
--- NOTE | 2020-06-28 10:19 | HO.PSYCHPN ---
Subjective Subjective Reason For Visit: Unspecified Psychotic Interim History: S patient who was pacing and restless wearing socks on his hands He is taking his medication not combative Mental Status Exam Mental Status Exam Narrative: not wearing mask wearing socks on his hands somewhat bizarre Patient Appearance: Well Grooomed Patient Orientation: Person, Place, Time and Situation Level of Consciousness: Awake and Restless Patient Behavior: Appropriate, Cooperative, Suspicious and Belligerent (At times) Mood Description: Calm, Suspicious and Anxious Affect Description: Anxious and Nervous Patient Cognition Impaired: No Ability to Follow Directions: Fair Speech Pattern: Clear, Appropriate, Loud, Pressured (During outburst) and Includes Profanity (During outburst) Memory Description: Intact Diagnostics Vital Signs (24Hr): Vital Signs - 24 hr 06/27/20 11:10 06/27/20 18:00 Temperature 97.3 F Pulse Rate 94 68 Blood Pressure 117/65 Body Mass Index 30.1 Labs Results: 06/14/20 19:20 06/21/20 09:05 Medications Medications Current Medications Generic Name Dose Route Start Last Admin Trade Name Naderq PRN Reason Stop Dose Admin Acetaminophen 650 mg 06/17/20 00:01 06/18/20 16:51 Acetaminophen 325 Mg Tablet PO 650 mg Q6H PRN Administration HEADACHE/PAIN.MAIN (SCALE 1-3) Al Hydroxide/Mg Hydroxide 30 ml 06/17/20 00:01 06/19/20 09:19 Magnesium Hydrox/Alum Hydrox 30 Ml Oral.Susp PO 30 ml Q6H PRN Administration HEARTBURN/NAUSEA Benztropine Mesylate 0.5 mg 06/17/20 08:30 06/27/20 21:02 Benztropine Mesylate 0.5 Mg Tablet PO 0.5 mg BID@0830,2100 CHANDA Administration Buprenorphine/Naloxone 1 film 06/17/20 09:00 06/27/20 08:32 Buprenorphine/Naloxone 8/2 Mg Film SUBLINGUAL 1 film DAILY CHANDA Administration Buspirone HCl 10 mg 06/17/20 08:30 06/27/20 21:02 Buspirone Hcl 10 Mg Tablet PO 10 mg TID@0830,1330,2100 CHANDA Administration Calcium Carbonate 750 mg 06/24/20 20:08 06/26/20 23:11 Calcium Carbonate 750 Mg Tab.Chew PO 750 mg Q6H PRN Administration Heartburn Clonidine HCl 0.1 mg 06/19/20 19:46 06/27/20 11:10 Clonidine Hcl 0.1 Mg Tablet PO 0.1 mg BID PRN Administration anxiety/restlessness Docusate Sodium 100 mg 06/27/20 21:00 06/27/20 21:13 Docusate Sodium 100 Mg Capsule PO 100 mg BID CHANDA Administration Hydroxyzine HCl 25 mg 06/17/20 21:00 06/26/20 00:42 Hydroxyzine Hcl 25 Mg Tablet PO 25 mg BEDTIME MRX1 PRN Administration NIGHT TIME ANXIETY Ibuprofen 600 mg 06/17/20 14:02 06/27/20 21:14 Ibuprofen 600 Mg Tablet PO 600 mg Q6H PRN Administration Pain, Moderate (Pain Scale 4-6 Magnesium Citrate 150 ml 06/27/20 10:02 06/27/20 10:19 Magnesium Citrate 300 Ml Solution PO 150 ml DAILY PRN Administration Constipation Magnesium Hydroxide 30 ml 06/17/20 00:01 06/25/20 23:01 Milk Of Magnesia 30 Ml Oral.Susp PO 30 ml Q24H PRN Administration Constipation Multivitamins/Vitamin C 1 tab 06/17/20 09:00 06/27/20 08:32 Multivitamin Tablet PO 1 tab DAILY CHANDA Administration Nicotine Polacrilex 2 mg 06/17/20 00:01 06/25/20 19:32 Nicotine Polacrilex 2 Mg Gum BUCCAL 2 mg Q2H PRN Administration Nicotine Cravings Omeprazole 20 mg 06/17/20 06:30 06/27/20 08:32 Omeprazole 20 Mg Capsule.Dr PO 20 mg DAILY@0630 CHANDA Administration Oxcarbazepine 600 mg 06/17/20 08:30 06/27/20 21:02 Oxcarbazepine 300 Mg Tablet PO 600 mg BID@0830,2100 CHANDA Administration Perphenazine 8 mg 06/17/20 00:01 06/27/20 11:09 Perphenazine 8 Mg Tablet PO 8 mg Q4H PRN Administration anxiety/restlessness Perphenazine 8 mg 06/17/20 09:00 06/27/20 21:02 Perphenazine 8 Mg Tablet PO 8 mg TID CHANDA Administration Risperidone 1 mg 06/26/20 09:00 06/27/20 08:32 Risperidone 1 Mg Tablet PO 1 mg DAILY CHANDA Administration Risperidone 2 mg 06/25/20 21:00 06/27/20 21:02 Risperidone 2 Mg Tablet PO 2 mg BEDTIME CHANDA Administration Trazodone HCl 200 mg 06/17/20 21:00 06/27/20 21:02 Trazodone Hcl 100 Mg Tablet PO 200 mg BEDTIME CHANDA Administration Trazodone HCl 50 mg 06/17/20 21:00 06/19/20 00:49 Trazodone Hcl 50 Mg Tablet PO 50 mg BEDTIME MRX1 PRN Administration Insomnia Triamcinolone Acetonide 1 appl 06/17/20 08:30 06/27/20 21:45 Triamcinolone Acet 0.5 % Cream 15 Gm Tube TOPICAL 1 appl BID@0830,2100 CHANDA Administration Zolpidem Tartrate 5 mg 06/27/20 10:40 06/27/20 21:14 Zolpidem Tartrate 5 Mg Tablet PO 5 mg BEDTIME MRX1 PRN Administration Insomnia Allergies Allergies Allergy/AdvReac Type Severity Reaction Status Date / Time haloperidol [From HALDOL] Allergy Intermediate UNKNOWN Verified 06/17/20 16:04 Assessment & Plan Assessment & Plan (1) Schizophrenia: Qualifiers: Schizophrenia type: paranoid schizophrenia Qualified Code(s): F20.0 - Paranoid schizophrenia Status: Acute Code(s): F20.9 - Schizophrenia, unspecified Assessment and Plan: CT current medication pending court hearing Greater than 50% of the session was spent on counseling and/or coordination of care
[2020-06-28] MEDS: OXcarbazepine 300 MG TABLET 600 MG PO ×2 (10:45→22:06)
[2020-06-28] MEDS: Multivitamin TABLET 1 TAB PO (10:47)
[2020-06-28] MEDS: Buprenorphine/Naloxone 8/2 mg FILM 1 FILM SUBLINGUAL (10:47)
[2020-06-28] MEDS: Docusate Sodium 100 MG CAPSULE PO ×2 (10:48→22:06)
[2020-06-28] MEDS: Omeprazole 20 MG CAPSULE.DR PO (10:48)
[2020-06-28] MEDS: busPIRone HCl 10 MG TABLET PO ×3 (10:49→22:06)
[2020-06-28] MEDS: Benztropine Mesylate 0.5 MG TABLET PO ×2 (10:49→22:15)
[2020-06-28] MEDS: risperiDONE 1 MG TABLET PO (10:49)
[2020-06-28] MEDS: Triamcinolone Acet 0.5 % Cream 15 GM TUBE 1 APPL TOPICAL ×2 (10:50→22:09)
[2020-06-28] MEDS: Perphenazine 8 MG TABLET PO ×3 (10:50→22:09)
[2020-06-28] MEDS: Mineral OiL enema 133 ML ENEMA PR (11:24)
[2020-06-28] MEDS: Nicotine Polacrilex 2 MG GUM BUCCAL (13:37)
[2020-06-28 15:02] VITALS: BP 133/72; PULSE 82
[2020-06-28] MEDS: cloNIDine HCL 0.1 MG TABLET PO (15:02)
[2020-06-28 16:28] VITALS: BP 125/70; PULSE 78; TEMP 36.7
[2020-06-28] MEDS: risperiDONE 2 MG TABLET PO (22:08)
[2020-06-28] MEDS: traZODone HCL 100 MG TABLET 200 MG PO (22:08)
[2020-06-29] MEDS: hydrOXYzine HCL 25 MG TABLET PO (00:43)
[2020-06-29] MEDS: traZODone HCL 50 MG TABLET PO (00:43)
[2020-06-29] MEDS: Ibuprofen 600 MG TABLET PO ×3 (02:17→18:34)
[2020-06-29 02:18] VITALS: BP 145/82; PULSE 65
[2020-06-29] MEDS: cloNIDine HCL 0.1 MG TABLET PO ×2 (02:18→08:33)
[2020-06-29] MEDS: Perphenazine 8 MG TABLET PO ×4 (03:24→14:58)
[2020-06-29 04:40] VITALS: BP 148/85; PULSE 71; RESP 18; TEMP 35.9; O2SAT 98
[2020-06-29 04:43] VITALS: BP 148/85; PULSE 71; RESP 18; TEMP 35.9; O2SAT 98
[2020-06-29] MEDS: Omeprazole 20 MG CAPSULE.DR PO (05:03)
--- NOTE | 2020-06-29 05:11 | PC.ADMIT ---
Addendum entered by Arpan Sarmiento 06/29/20 05:41: Mistakenly entered as an admission note. Pt responding to internal stimuli and self dialoguing: You want to say something, say it to my face. I'm going to organize these papers. Pt remained cooperative with staff Original Note: Patient awake for entirety of shift. Pt c/o racing thoughts and anxiety. He was observed to pace the hallway and, on multiple occasions, checked all door handles as well as attempting to open the fire extinguisher. Pt made several paranoid and illogical statements with little self awareness. Often times he misheard statements made by t/w and questioned whether or not he was being insulted. Pt needed reassurance on multiple occasions that the medication that he received would not kill him. If you were offered a trillion dollars (to kill him with medication) would you do it? He examined medication received several times and questioned whether we were lying about medication being administered. Staff provided reassurance that medications were safe. While looking out of the unit window pt stated I see red and yellow lights with a fence What are they? I see the city but not sure what's after the fence. Before I wouldn't have realized that. Pt oriented to date, time, and reason for hospitalization. T/w attempted to engage patient in a sleep medication with little effect, as the patient kept striking odd poses while in bed. He remained in behavioral control. Pt complained of left hip and back pain for which he received PRN Ibuprofen. Pt received medication for sleep with no effect as well as anxiety. See MAR. will continue to monitor and report.
[2020-06-29] MEDS: Acetaminophen 325 MG TABLET 650 MG PO (06:35)
[2020-06-29] MEDS: Docusate Sodium 100 MG CAPSULE PO ×2 (08:20→20:29)
[2020-06-29] MEDS: Benztropine Mesylate 0.5 MG TABLET PO ×2 (08:20→20:30)
[2020-06-29] MEDS: busPIRone HCl 10 MG TABLET PO ×3 (08:20→20:30)
[2020-06-29] MEDS: Multivitamin TABLET 1 TAB PO (08:20)
[2020-06-29] MEDS: risperiDONE 1 MG TABLET PO (08:20)
[2020-06-29] MEDS: OXcarbazepine 300 MG TABLET 600 MG PO ×2 (08:20→20:27)
[2020-06-29] MEDS: Buprenorphine/Naloxone 8/2 mg FILM 1 FILM SUBLINGUAL (08:20)
[2020-06-29 08:33] VITALS: BP 148/85; PULSE 71
[2020-06-29] MEDS: Triamcinolone Acet 0.5 % Cream 15 GM TUBE 1 APPL TOPICAL ×2 (08:52→22:32)
--- NOTE | 2020-06-29 09:22 | HO.PSYCHPN ---
Subjective Subjective Date of Service: 06/29/20 Reason For Visit: Unspecified Psychotic Subjective Notes: Tompkins Order Interim History: Pt remains labile. On weekend Had several episodes of explosive anger loud yelling but no physical aggression. Paranoid about another male peer. Med compliant. We discussed that it is imperative he have better impulse control. Agrees and cooperative. Hearing continued to Jul 08, Agrees to increase Risperidone to 4 mg Medication Compliance: Yes Side effects from medications: No Attending Groups: Intermittent Review of Systems Acute medical concerns: No Medical Review of Systems: unchanged Mental Status Exam Mental Status Exam Patient Appearance: Disheveled Patient Orientation: Person, Place, Time and Situation Level of Consciousness: Awake and Drowsy (at times) Patient Behavior: Posturing, Suspicious, Swearing and Fearful Mood Description: Fearful Affect Description: Suspicious Patient Cognition Impaired: No Ability to Follow Directions: Fair Speech Pattern: Slurred and Rambling Memory Description: Intact Hallucinations: None Delusions: Paranoid Ideation and Ideas of Reference Thought Content: positive for Preoccupation Abnormal Motor Activity Signs and Symptoms: Restlessness Judgement: Poor Diagnostics Vital Signs (24Hr): Vital Signs - 24 hr 06/28/20 15:02 06/28/20 16:28 06/29/20 02:18 Temperature 98.0 F Pulse Rate 82 78 65 Respiratory Rate Blood Pressure 133/72 125/70 145/82 H Pulse Oximetry 06/29/20 04:40 06/29/20 04:43 06/29/20 08:33 Temperature 96.7 F L 96.7 F L Pulse Rate 71 71 71 Respiratory Rate 18 18 Blood Pressure 148/85 H 148/85 H 148/85 H Pulse Oximetry 98 98 Body Mass Index 30.1 Labs Results: 06/14/20 19:20 06/21/20 09:05 Medications Medications Current Medications Generic Name Dose Route Start Last Admin Trade Name Freq PRN Reason Stop Dose Admin Acetaminophen 650 mg 06/17/20 00:01 06/29/20 06:35 Acetaminophen 325 Mg Tablet PO 650 mg Q6H PRN Administration HEADACHE/PAIN.MAIN (SCALE 1-3) Al Hydroxide/Mg Hydroxide 30 ml 06/17/20 00:01 06/19/20 09:19 Magnesium Hydrox/Alum Hydrox 30 Ml Oral.Susp PO 30 ml Q6H PRN Administration HEARTBURN/NAUSEA Benztropine Mesylate 0.5 mg 06/17/20 08:30 06/29/20 08:20 Benztropine Mesylate 0.5 Mg Tablet PO 0.5 mg BID@0830,2100 CHANDA Administration Buprenorphine/Naloxone 1 film 06/17/20 09:00 06/29/20 08:20 Buprenorphine/Naloxone 8/2 Mg Film SUBLINGUAL 1 film DAILY CHANDA Administration Buspirone HCl 10 mg 06/17/20 08:30 06/29/20 08:20 Buspirone Hcl 10 Mg Tablet PO 10 mg TID@0830,1330,2100 CHANDA Administration Calcium Carbonate 750 mg 06/24/20 20:08 06/26/20 23:11 Calcium Carbonate 750 Mg Tab.Chew PO 750 mg Q6H PRN Administration Heartburn Clonidine HCl 0.1 mg 06/19/20 19:46 06/29/20 08:33 Clonidine Hcl 0.1 Mg Tablet PO 0.1 mg BID PRN Administration anxiety/restlessness Docusate Sodium 100 mg 06/27/20 21:00 06/29/20 08:20 Docusate Sodium 100 Mg Capsule PO 100 mg BID CHANDA Administration Hydroxyzine HCl 25 mg 06/17/20 21:00 06/29/20 00:43 Hydroxyzine Hcl 25 Mg Tablet PO 25 mg BEDTIME MRX1 PRN Administration NIGHT TIME ANXIETY Ibuprofen 600 mg 06/17/20 14:02 06/29/20 08:34 Ibuprofen 600 Mg Tablet PO 600 mg Q6H PRN Administration Pain, Moderate (Pain Scale 4-6 Magnesium Citrate 150 ml 06/27/20 10:02 06/27/20 10:19 Magnesium Citrate 300 Ml Solution PO 150 ml DAILY PRN Administration Constipation Magnesium Hydroxide 30 ml 06/17/20 00:01 06/25/20 23:01 Milk Of Magnesia 30 Ml Oral.Susp PO 30 ml Q24H PRN Administration Constipation Multivitamins/Vitamin C 1 tab 06/17/20 09:00 06/29/20 08:20 Multivitamin Tablet PO 1 tab DAILY CHANDA Administration Nicotine Polacrilex 2 mg 06/17/20 00:01 06/28/20 13:37 Nicotine Polacrilex 2 Mg Gum BUCCAL 2 mg Q2H PRN Administration Nicotine Cravings Omeprazole 20 mg 06/17/20 06:30 06/29/20 05:03 Omeprazole 20 Mg Capsule.Dr PO 20 mg DAILY@0630 CHANDA Administration Oxcarbazepine 600 mg 10/01/20 08:30 06/29/20 08:20 Oxcarbazepine 300 Mg Tablet PO 600 mg BID@829,2099 CHANDA Administration Perphenazine 8 mg 06/17/20 00:01 06/29/20 03:24 Perphenazine 8 Mg Tablet PO 8 mg Q4H PRN Administration anxiety/restlessness Perphenazine 8 mg 06/17/20 09:00 06/29/20 08:20 Perphenazine 8 Mg Tablet PO 8 mg TID CHANDA Administration Risperidone 1 mg 06/26/20 09:00 06/29/20 08:20 Risperidone 1 Mg Tablet PO 1 mg DAILY CHANDA Administration Risperidone 2 mg 06/25/20 21:00 06/28/20 22:08 Risperidone 2 Mg Tablet PO 2 mg BEDTIME CHANDA Administration Trazodone HCl 200 mg 06/17/20 21:00 06/28/20 22:08 Trazodone Hcl 100 Mg Tablet PO 200 mg BEDTIME CHANDA Administration Trazodone HCl 50 mg 06/17/20 21:00 06/29/20 00:43 Trazodone Hcl 50 Mg Tablet PO 50 mg BEDTIME MRX1 PRN Administration Insomnia Triamcinolone Acetonide 1 appl 06/17/20 08:30 06/29/20 08:52 Triamcinolone Acet 0.5 % Cream 15 Gm Tube TOPICAL 1 appl BID@829,2099 CHANDA Administration Zolpidem Tartrate 5 mg 06/27/20 10:40 06/27/20 21:14 Zolpidem Tartrate 5 Mg Tablet PO 5 mg BEDTIME MRX1 PRN Administration Insomnia Allergies Allergies Allergy/AdvReac Type Severity Reaction Status Date / Time haloperidol [From HALDOL] Allergy Intermediate UNKNOWN Verified 06/17/20 16:04 Assessment & Plan Assessment & Plan (1) Schizophrenia: Qualifiers: Schizophrenia type: paranoid schizophrenia Qualified Code(s): F20.0 - Paranoid schizophrenia Status: Acute Code(s): F20.9 - Schizophrenia, unspecified Greater than 50% of the session was spent on counseling and/or coordination of care Continue meds per Turner Ponce Risp. Switch to Liquid Patient educated on: diagnosis Informed Consent: does not understand and further education needed Reason for contiued inpatient stay Substantial Risk for: harm to others, inability to function and rapid decompensation
[2020-06-29 18:00] VITALS: BP 123/69; PULSE 76; TEMP 36.3
[2020-06-29] MEDS: Buprenorphine/Naloxone 4/1 mg FILM 1 FILM SUBLINGUAL (18:20)
[2020-06-29] MEDS: risperiDONE Oral Sol 1 MG/ML SOLUTION 2 MG PO (20:31)
[2020-06-29] MEDS: traZODone HCL 100 MG TABLET 200 MG PO (20:31)
[2020-06-30 06:45] VITALS: PULSE 68; RESP 18; TEMP 36.2; O2SAT 97
[2020-06-30] MEDS: Multivitamin TABLET 1 TAB PO (09:08)
[2020-06-30] MEDS: busPIRone HCl 10 MG TABLET PO ×3 (09:08→20:44)
[2020-06-30] MEDS: OXcarbazepine 300 MG TABLET 600 MG PO ×2 (09:09→20:45)
[2020-06-30] MEDS: Omeprazole 20 MG CAPSULE.DR PO (09:09)
[2020-06-30] MEDS: Buprenorphine/Naloxone 8/2 mg FILM 1 FILM SUBLINGUAL (09:09)
[2020-06-30] MEDS: risperiDONE Oral Sol 1 MG/ML SOLUTION 2 MG PO ×2 (09:09→20:44)
[2020-06-30] MEDS: Docusate Sodium 100 MG CAPSULE PO ×2 (09:09→20:44)
[2020-06-30] MEDS: Perphenazine 8 MG TABLET PO ×3 (09:09→20:45)
[2020-06-30] MEDS: Benztropine Mesylate 0.5 MG TABLET PO ×2 (09:09→20:45)
--- NOTE | 2020-06-30 09:30 | P.PNPSI_ITS ---
Subjective Subjective Date of Service: 06/30/20 Reason For Visit: Unspecified Psychotic Subjective Notes: [place] Warning, Tompkins Order and Legal Status (Section 7) Interim History: Pt remains labile. He is however trying to be calmer and to manage his anger. He is able to see how this interferes with his functioning, and ability to manage in the community. He is not happy about having liquid risperdal but he has been taking it. Because of his irritabilty will hold off on risperdal consta for now. Medication Compliance: Yes Side effects from medications: No Attending Groups: Intermittent Review of Systems Acute medical concerns: No Medical Review of Systems: unchanged Mental Status Exam Mental Status Exam Patient Appearance: Disheveled Patient Orientation: Person, Place, Time and Situation Level of Consciousness: Awake and Drowsy (at times) Patient Behavior: Posturing, Suspicious, Swearing and Fearful Mood Description: Fearful Affect Description: Suspicious Patient Cognition Impaired: No Ability to Follow Directions: Fair Speech Pattern: Slurred and Rambling Memory Description: Intact Hallucinations: None Delusions: Paranoid Ideation and Ideas of Reference Thought Content: positive for Preoccupation, negative for Suicidal Ideation and negative for Homicidal Ideation Abnormal Motor Activity Signs and Symptoms: Restlessness Judgement: Poor Diagnostics Vital Signs (24Hr): Vital Signs - 24 hr 06/29/20 18:00 06/30/20 06:45 Temperature 97.3 F 97.1 F Pulse Rate 76 68 Respiratory Rate 18 Blood Pressure 123/69 Pulse Oximetry 97 Body Mass Index 30.1 Labs Results: 06/14/20 19:20 06/21/20 09:05 Medications Medications Current Medications Generic Name Dose Route Start Last Admin Trade Name Darwin PRN Reason Stop Dose Admin Acetaminophen 650 mg 06/17/20 00:01 06/29/20 06:35 Acetaminophen 325 Mg Tablet PO 650 mg Q6H PRN Administration HEADACHE/PAIN.MAIN (SCALE 1-3) Al Hydroxide/Mg Hydroxide 30 ml 06/17/20 00:01 06/19/20 09:19 Magnesium Hydrox/Alum Hydrox 30 Ml Oral.Susp PO 30 ml Q6H PRN Administration HEARTBURN/NAUSEA Benztropine Mesylate 0.5 mg 06/17/20 08:30 06/30/20 09:09 Benztropine Mesylate 0.5 Mg Tablet PO 0.5 mg BID@0830,2100 CHANDA Administration Buprenorphine/Naloxone 1 film 06/17/20 09:00 06/30/20 09:09 Buprenorphine/Naloxone 8/2 Mg Film SUBLINGUAL 1 film DAILY CHANDA Administration Buprenorphine/Naloxone 1 film 06/29/20 17:00 06/29/20 18:20 Buprenorphine/Naloxone 4/1 Mg Film SUBLINGUAL 1 film DAILY@1700 CHANDA Administration Buspirone HCl 10 mg 06/17/20 08:30 06/30/20 09:08 Buspirone Hcl 10 Mg Tablet PO 10 mg TID@0830,1330,2100 CHANDA Administration Calcium Carbonate 750 mg 06/24/20 20:08 06/26/20 23:11 Calcium Carbonate 750 Mg Tab.Chew PO 750 mg Q6H PRN Administration Heartburn Clonidine HCl 0.1 mg 06/19/20 19:46 06/29/20 08:33 Clonidine Hcl 0.1 Mg Tablet PO 0.1 mg BID PRN Administration anxiety/restlessness Docusate Sodium 100 mg 06/27/20 21:00 06/30/20 09:09 Docusate Sodium 100 Mg Capsule PO 100 mg BID CHANDA Administration Hydroxyzine HCl 25 mg 06/17/20 21:00 06/29/20 00:43 Hydroxyzine Hcl 25 Mg Tablet PO 25 mg BEDTIME MRX1 PRN Administration NIGHT TIME ANXIETY Ibuprofen 600 mg 06/17/20 14:02 06/29/20 18:34 Ibuprofen 600 Mg Tablet PO 600 mg Q6H PRN Administration Pain, Moderate (Pain Scale 4-6 Magnesium Citrate 150 ml 06/27/20 10:02 06/27/20 10:19 Magnesium Citrate 300 Ml Solution PO 150 ml DAILY PRN Administration Constipation Magnesium Hydroxide 30 ml 06/17/20 00:01 06/25/20 23:01 Milk Of Magnesia 30 Ml Oral.Susp PO 30 ml Q24H PRN Administration Constipation Multivitamins/Vitamin C 1 tab 06/17/20 09:00 06/30/20 09:08 Multivitamin Tablet PO 1 tab DAILY CHANDA Administration Nicotine Polacrilex 2 mg 06/17/20 00:01 06/28/20 13:37 Nicotine Polacrilex 2 Mg Gum BUCCAL 2 mg Q2H PRN Administration Nicotine Cravings Omeprazole 20 mg 06/17/20 06:30 06/30/20 09:09 Omeprazole 20 Mg Capsule.Dr PO 20 mg DAILY@0630 CHANDA Administration Oxcarbazepine 600 mg 06/17/20 08:30 06/30/20 09:09 Oxcarbazepine 300 Mg Tablet PO 600 mg BID@829,2099 CHANDA Administration Perphenazine 8 mg 06/17/20 00:01 06/29/20 11:26 Perphenazine 8 Mg Tablet PO 8 mg Q4H PRN Administration anxiety/restlessness Perphenazine 8 mg 06/17/20 09:00 06/30/20 09:09 Perphenazine 8 Mg Tablet PO 8 mg TID CHANDA Administration Risperidone 2 mg 06/29/20 21:00 06/30/20 09:09 Risperidone Oral Shara 1 Mg/Ml Solution PO 2 mg BID CHANDA Administration Trazodone HCl 200 mg 06/17/20 21:00 06/29/20 20:31 Trazodone Hcl 100 Mg Tablet PO 200 mg BEDTIME CHANDA Administration Trazodone HCl 50 mg 06/17/20 21:00 06/29/20 00:43 Trazodone Hcl 50 Mg Tablet PO 50 mg BEDTIME MRX1 PRN Administration Insomnia Triamcinolone Acetonide 1 appl 06/17/20 08:30 06/30/20 09:09 Triamcinolone Acet 0.5 % Cream 15 Gm Tube TOPICAL Not Given BID@829,2099 [facility] Zolpidem Tartrate 5 mg 06/27/20 10:40 06/27/20 21:14 Zolpidem Tartrate 5 Mg Tablet PO 5 mg BEDTIME MRX1 PRN Administration Insomnia Allergies Allergies Allergy/AdvReac Type Severity Reaction Status Date / Time haloperidol [From HALDOL] Allergy Intermediate UNKNOWN Verified 06/17/20 16:04 Assessment & Plan Assessment & Plan (1) Schizophrenia: Qualifiers: Schizophrenia type: paranoid schizophrenia Qualified Code(s): F20.0 - Paranoid schizophrenia Status: Acute Code(s): F20.9 - Schizophrenia, unspecified Assessment and Plan: CT risperdal Consider risperdal consta SW to liase with CHD Greater than 50% of the session was spent on counseling and/or coordination of care Patient educated on: diagnosis and medication risk/benefits Informed Consent: further education needed Reason for contiued inpatient stay Substantial Risk for: harm to others, inability to function and rapid decompen sation
[2020-06-30 13:01] VITALS: PULSE 76
[2020-06-30] MEDS: cloNIDine HCL 0.1 MG TABLET PO (13:01)
[2020-06-30] MEDS: Buprenorphine/Naloxone 4/1 mg FILM 1 FILM SUBLINGUAL (16:31)
[2020-06-30 18:00] VITALS: BP 82/55; PULSE 63; TEMP 36.6
[2020-06-30] MEDS: traZODone HCL 100 MG TABLET 200 MG PO (20:45)
[2020-06-30] MEDS: Triamcinolone Acet 0.5 % Cream 15 GM TUBE 1 APPL TOPICAL (20:59)
[2020-06-30 21:13] VITALS: BP 129/66; PULSE 74
[2020-06-30] MEDS: hydrOXYzine HCL 25 MG TABLET PO (23:51)
[2020-06-30] MEDS: traZODone HCL 50 MG TABLET PO (23:51)
[2020-07-01 06:00] VITALS: BP 154/62; PULSE 83; TEMP 36.5
[2020-07-01] MEDS: Omeprazole 20 MG CAPSULE.DR PO (09:28)
[2020-07-01] MEDS: Multivitamin TABLET 1 TAB PO (09:28)
[2020-07-01] MEDS: Perphenazine 8 MG TABLET PO ×3 (09:29→21:07)
[2020-07-01] MEDS: OXcarbazepine 300 MG TABLET 600 MG PO ×2 (09:29→21:07)
[2020-07-01] MEDS: Buprenorphine/Naloxone 8/2 mg FILM 1 FILM SUBLINGUAL (09:29)
[2020-07-01] MEDS: risperiDONE Oral Sol 1 MG/ML SOLUTION 2 MG PO ×2 (09:29→21:06)
[2020-07-01] MEDS: Docusate Sodium 100 MG CAPSULE PO ×2 (09:29→21:07)
[2020-07-01] MEDS: busPIRone HCl 10 MG TABLET PO ×3 (09:29→21:07)
[2020-07-01] MEDS: Benztropine Mesylate 0.5 MG TABLET PO ×2 (09:29→21:07)
[2020-07-01] MEDS: Triamcinolone Acet 0.5 % Cream 15 GM TUBE 1 APPL TOPICAL ×2 (09:31→21:05)
--- NOTE | 2020-07-01 11:34 | P.PNPSI_ITS ---
Subjective Subjective Date of Service: 07/01/20 Reason For Visit: Unspecified Psychotic Subjective Notes: [place] Order Interim History: Pt remains labile. He is however trying to be calmer and to manage his anger. He is able to see how this interferes with his functioning, and ability to manage in the community. He is not happy about having liquid risperdal but he has been taking it. Has had some outbursts but overall controlled. Reiterated behavioral control, a nd med compliance Because of his irritabilty will hold off on risperdal consta for now. Medication Compliance: Yes Side effects from medications: No Attending Groups: Intermittent Review of Systems Acute medical concerns: No Medical Review of Systems: unchanged Mental Status Exam Mental Status Exam Narrative: not wearing mask wearing socks on his hands somewhat bizarre Patient Appearance: Disheveled Patient Orientation: Person, Place, Time and Situation Level of Consciousness: Awake and Drowsy (at times) Patient Behavior: Posturing, Suspicious, Swearing and Fearful Mood Description: Fearful Affect Description: Suspicious Patient Cognition Impaired: No Ability to Follow Directions: Fair Speech Pattern: Slurred and Rambling Memory Description: Intact Diagnostics Vital Signs (24Hr): Vital Signs - 24 hr 06/30/20 13:01 06/30/20 18:00 06/30/20 21:13 Temperature 97.9 F Pulse Rate 76 63 74 Blood Pressure 82/55 L 129/66 Body Mass Index 30.0 Labs Results: 06/14/20 19:20 06/21/20 09:05 Medications Medications Current Medications Generic Name Dose Route Start Last Admin Trade Name Freq PRN Reason Stop Dose Admin Acetaminophen 650 mg 06/17/20 00:01 06/29/20 06:35 Acetaminophen 325 Mg Tablet PO 650 mg Q6H PRN Administration HEADACHE/PAIN.MAIN (SCALE 1-3) Al Hydroxide/Mg Hydroxide 30 ml 06/17/20 00:01 06/19/20 09:19 Magnesium Hydrox/Alum Hydrox 30 Ml Oral.Susp PO 30 ml Q6H PRN Administration HEARTBURN/NAUSEA Benztropine Mesylate 0.5 mg 06/17/20 08:30 07/01/20 09:29 Benztropine Mesylate 0.5 Mg Tablet PO 0.5 mg BID@0830,2100 CHANDA Administration Buprenorphine/Naloxone 1 film 06/17/20 09:00 07/01/20 09:29 Buprenorphine/Naloxone 8/2 Mg Film SUBLINGUAL 1 film DAILY CHANDA Administration Buprenorphine/Naloxone 1 film 06/29/20 17:00 06/30/20 16:31 Buprenorphine/Naloxone 4/1 Mg Film SUBLINGUAL 1 film DAILY@1700 CHANDA Administration Buspirone HCl 10 mg 06/17/20 08:30 07/01/20 09:29 Buspirone Hcl 10 Mg Tablet PO 10 mg TID@0830,1330,2100 CHANDA Administration Calcium Carbonate 750 mg 06/24/20 20:08 06/26/20 23:11 Calcium Carbonate 750 Mg Tab.Chew PO 750 mg Q6H PRN Administration Heartburn Clonidine HCl 0.1 mg 06/19/20 19:46 06/30/20 13:01 Clonidine Hcl 0.1 Mg Tablet PO 0.1 mg BID PRN Administration anxiety/restlessness Docusate Sodium 100 mg 06/27/20 21:00 07/01/20 09:29 Docusate Sodium 100 Mg Capsule PO 100 mg BID CHANDA Administration Hydroxyzine HCl 25 mg 06/17/20 21:00 06/30/20 23:51 Hydroxyzine Hcl 25 Mg Tablet PO 25 mg BEDTIME MRX1 PRN Administration NIGHT TIME ANXIETY Ibuprofen 600 mg 06/17/20 14:02 06/29/20 18:34 Ibuprofen 600 Mg Tablet PO 600 mg Q6H PRN Administration Pain, Moderate (Pain Scale 4-6 Magnesium Citrate 150 ml 06/27/20 10:02 06/27/20 10:19 Magnesium Citrate 300 Ml Solution PO 150 ml DAILY PRN Administration Constipation Magnesium Hydroxide 30 ml 06/17/20 00:01 06/25/20 23:01 Milk Of Magnesia 30 Ml Oral.Susp PO 30 ml Q24H PRN Administration Constipation Multivitamins/Vitamin C 1 tab 06/17/20 09:00 07/01/20 09:28 Multivitamin Tablet PO 1 tab DAILY CHANDA Administration Nicotine Polacrilex 2 mg 06/17/20 00:01 06/28/20 13:37 Nicotine Polacrilex 2 Mg Gum BUCCAL 2 mg Q2H PRN Administration Nicotine Cravings Omeprazole 20 mg 06/17/20 06:30 07/01/20 09:28 Omeprazole 20 Mg Capsule.Dr PO 20 mg DAILY@0630 CHANDA Administration Oxcarbazepine 600 mg 06/17/20 08:30 07/01/20 09:29 Oxcarbazepine 300 Mg Tablet PO 600 mg BID@0830,2100 CHANDA Administration Perphenazine 8 mg 06/17/20 00:01 06/29/20 11:26 Perphenazine 8 Mg Tablet PO 8 mg Q4H PRN Administration anxiety/restlessness Perphenazine 8 mg 06/17/20 09:00 07/01/20 09:29 Perphenazine 8 Mg Tablet PO 8 mg TID CHANDA Administration Risperidone 2 mg 06/29/20 21:00 07/01/20 09:29 Risperidone Oral Shara 1 Mg/Ml Solution PO 2 mg BID CHANDA Administration Trazodone HCl 200 mg 06/17/20 21:00 06/30/20 20:45 Trazodone Hcl 100 Mg Tablet PO 200 mg BEDTIME CHANDA Administration Trazodone HCl 50 mg 06/17/20 21:00 06/30/20 23:51 Trazodone Hcl 50 Mg Tablet PO 50 mg BEDTIME MRX1 PRN Administration Insomnia Triamcinolone Acetonide 1 appl 06/17/20 08:30 07/01/20 09:31 Triamcinolone Acet 0.5 % Cream 15 Gm Tube TOPICAL 1 appl BID@0830,2100 CHANDA Administration Zolpidem Tartrate 5 mg 06/27/20 10:40 06/27/20 21:14 Zolpidem Tartrate 5 Mg Tablet PO 5 mg BEDTIME MRX1 PRN Administration Insomnia Allergies Allergies Allergy/AdvReac Type Severity Reaction Status Date / Time haloperidol [From HALDOL] Allergy Intermediate UNKNOWN Verified 06/17/20 16:04 Assessment & Plan Assessment & Plan (1) Schizophrenia: Qualifiers: Schizophrenia type: paranoid schizophrenia Qualified Code(s): F20.0 - Paranoid schizophrenia Status: Acute Code(s): F20.9 - Schizophrenia, unspecified Assessment and Plan: CT risperdal Consider risperdal consta SW to liase with [facility] Greater than 50% of the session was spent on counseling and/or coordination of care
[2020-07-01 11:45] VITALS: BP 154/62; PULSE 83
[2020-07-01] MEDS: cloNIDine HCL 0.1 MG TABLET PO (11:45)
[2020-07-01] MEDS: Ibuprofen 600 MG TABLET PO (11:45)
[2020-07-01 18:00] VITALS: BP 118/64; PULSE 71; TEMP 36.5
[2020-07-01] MEDS: Buprenorphine/Naloxone 4/1 mg FILM 1 FILM SUBLINGUAL (18:07)
[2020-07-01] MEDS: traZODone HCL 100 MG TABLET 200 MG PO (21:07)
[2020-07-01] MEDS: hydrOXYzine HCL 25 MG TABLET PO (21:20)
[2020-07-01] MEDS: Zolpidem Tartrate 5 MG TABLET PO (21:50)
--- NOTE | 2020-07-02 06:24 | HO.PSYCHPN ---
Subjective Subjective Date of Service: 07/02/20 Reason For Visit: Unspecified Psychotic Subjective Notes: [place] Order Interim History: Pt remains labile. He is however trying to be calmer and to manage his anger. He is able to see how this interferes with his functioning, and ability to manage in the community. Compliant with meds. Has had some outbursts but overall controlled. Reiterated behavioral control, and med compliance Because of his irritabilty will hold off on risperdal consta for now. Introduce Consta next week. Has hearing on Jul 08 Medication Compliance: Yes Side effects from medications: No Attending Groups: Yes Review of Systems Acute medical concerns: No Medical Review of Systems: unchanged Mental Status Exam Mental Status Exam Patient Appearance: Disheveled Patient Orientation: Person, Place, Time and Situation Level of Consciousness: Awake Patient Behavior: Suspicious, Swearing (at times then regretful) and Fearful Mood Description: Fearful Affect Description: Suspicious Patient Cognition Impaired: No Ability to Follow Directions: Fair Speech Pattern: Slurred and Rambling Memory Description: Intact Abnormal Motor Activity Signs and Symptoms: Agitation (improving) Judgement: Poor Diagnostics Vital Signs (24Hr): Vital Signs - 24 hr 07/01/20 11:45 07/01/20 18:00 Temperature 97.7 F Pulse Rate 83 71 Blood Pressure 154/62 H 118/64 Body Mass Index 30.0 Labs Results: 06/14/20 19:20 06/21/20 09:05 Medications Medications Current Medications Generic Name Dose Route Start Last Admin Trade Name Freq PRN Reason Stop Dose Admin Acetaminophen 650 mg 06/17/20 00:01 06/29/20 06:35 Acetaminophen 325 Mg Tablet PO 650 mg Q6H PRN Administration HEADACHE/PAIN.MAIN (SCALE 1-3) Al Hydroxide/Mg Hydroxide 30 ml 06/17/20 00:01 06/19/20 09:19 Magnesium Hydrox/Alum Hydrox 30 Ml Oral.Susp PO 30 ml Q6H PRN Administration HEARTBURN/NAUSEA Benztropine Mesylate 0.5 mg 06/17/20 08:30 07/01/20 21:07 Benztropine Mesylate 0.5 Mg Tablet PO 0.5 mg BID@0830,2100 CHANDA Administration Buprenorphine/Naloxone 1 film 06/17/20 09:00 07/01/20 09:29 Buprenorphine/Naloxone 8/2 Mg Film SUBLINGUAL 1 film DAILY CHANDA Administration Buprenorphine/Naloxone 1 film 06/29/20 17:00 07/01/20 18:07 Buprenorphine/Naloxone 4/1 Mg Film SUBLINGUAL 1 film DAILY@1700 CHANDA Administration Buspirone HCl 10 mg 06/17/20 08:30 07/01/20 21:07 Buspirone Hcl 10 Mg Tablet PO 10 mg TID@0830,1330,2100 CHANDA Administration Calcium Carbonate 750 mg 06/24/20 20:08 06/26/20 23:11 Calcium Carbonate 750 Mg Tab.Chew PO 750 mg Q6H PRN Administration Heartburn Clonidine HCl 0.1 mg 06/19/20 19:46 07/01/20 11:45 Clonidine Hcl 0.1 Mg Tablet PO 0.1 mg BID PRN Administration anxiety/restlessness Docusate Sodium 100 mg 06/27/20 21:00 07/01/20 21:07 Docusate Sodium 100 Mg Capsule PO 100 mg BID CHANDA Administration Hydroxyzine HCl 25 mg 06/17/20 21:00 07/01/20 21:20 Hydroxyzine Hcl 25 Mg Tablet PO 25 mg BEDTIME MRX1 PRN Administration NIGHT TIME ANXIETY Ibuprofen 600 mg 06/17/20 14:02 07/01/20 11:45 Ibuprofen 600 Mg Tablet PO 600 mg Q6H PRN Administration Pain, Moderate (Pain Scale 4-6 Magnesium Citrate 150 ml 06/27/20 10:02 06/27/20 10:19 Magnesium Citrate 300 Ml Solution PO 150 ml DAILY PRN Administration Constipation Magnesium Hydroxide 30 ml 06/17/20 00:01 06/25/20 23:01 Milk Of Magnesia 30 Ml Oral.Susp PO 30 ml Q24H PRN Administration Constipation Multivitamins/Vitamin C 1 tab 06/17/20 09:00 07/01/20 09:28 Multivitamin Tablet PO 1 tab DAILY CHANDA Administration Nicotine Polacrilex 2 mg 06/17/20 00:01 06/28/20 13:37 Nicotine Polacrilex 2 Mg Gum BUCCAL 2 mg Q2H PRN Administration Nicotine Cravings Omeprazole 20 mg 06/17/20 06:30 07/01/20 09:28 Omeprazole 20 Mg Capsule.Dr PO 20 mg DAILY@0630 CHANDA Administration Oxcarbazepine 600 mg 06/17/20 08:30 07/01/20 21:07 Oxcarbazepine 300 Mg Tablet PO 600 mg BID@0830,2099 CHANDA Administration Perphenazine 8 mg 06/17/20 00:01 06/29/20 11:26 Perphenazine 8 Mg Tablet PO 8 mg Q4H PRN Administration anxiety/restlessness Perphenazine 8 mg 06/17/20 09:00 07/01/20 21:07 Perphenazine 8 Mg Tablet PO 8 mg TID CHANAD Administration Risperidone 2 mg 06/29/20 21:00 07/01/20 21:06 Risperidone Oral Shara 1 Mg/Ml Solution PO 2 mg BID CHANDA Administration Trazodone HCl 200 mg 06/17/20 21:00 07/01/20 21:07 Trazodone Hcl 100 Mg Tablet PO 200 mg BEDTIME CHANDA Administration Trazodone HCl 50 mg 06/17/20 21:00 06/30/20 23:51 Trazodone Hcl 50 Mg Tablet PO 50 mg BEDTIME MRX1 PRN Administration Insomnia Triamcinolone Acetonide 1 appl 06/17/20 08:30 07/01/20 21:05 Triamcinolone Acet 0.5 % Cream 15 Gm Tube TOPICAL 1 appl BID@0830,2099 CHANDA Administration Zolpidem Tartrate 5 mg 06/27/20 10:40 07/01/20 21:50 Zolpidem Tartrate 5 Mg Tablet PO 5 mg BEDTIME MRX1 PRN Administration Insomnia Allergies Allergies Allergy/AdvReac Type Severity Reaction Status Date / Time haloperidol [From HALDOL] Allergy Intermediate UNKNOWN Verified 06/17/20 16:04 Assessment & Plan Assessment & Plan (1) Schizophrenia: Qualifiers: Schizophrenia type: paranoid schizophrenia Qualified Code(s): F20.0 - Paranoid schizophrenia Status: Acute Code(s): F20.9 - Schizophrenia, unspecified Assessment and Plan: CT risperdal Consider risperdal consta next week SW to liase with [facility] Court hearing next week Greater than 50% of the session was spent on counseling and/or coordination of care
[2020-07-02] MEDS: Perphenazine 8 MG TABLET PO ×3 (08:56→20:44)
[2020-07-02] MEDS: Benztropine Mesylate 0.5 MG TABLET PO ×2 (08:56→20:44)
[2020-07-02] MEDS: busPIRone HCl 10 MG TABLET PO ×3 (08:56→20:44)
[2020-07-02] MEDS: Multivitamin TABLET 1 TAB PO (08:57)
[2020-07-02] MEDS: Omeprazole 20 MG CAPSULE.DR PO (08:57)
[2020-07-02] MEDS: OXcarbazepine 300 MG TABLET 600 MG PO ×2 (08:58→20:44)
[2020-07-02] MEDS: risperiDONE Oral Sol 1 MG/ML SOLUTION 2 MG PO ×2 (09:00→20:44)
[2020-07-02] MEDS: Triamcinolone Acet 0.5 % Cream 15 GM TUBE 1 APPL TOPICAL (09:03)
[2020-07-02] MEDS: Buprenorphine/Naloxone 8/2 mg FILM 1 FILM SUBLINGUAL (09:10)
[2020-07-02] MEDS: Docusate Sodium 100 MG CAPSULE PO ×2 (09:25→20:45)
[2020-07-02] MEDS: Buprenorphine/Naloxone 4/1 mg FILM 1 FILM SUBLINGUAL (17:10)
[2020-07-02 17:15] VITALS: BP 118/73; PULSE 75
[2020-07-02] MEDS: cloNIDine HCL 0.1 MG TABLET PO (17:15)
[2020-07-02 18:00] VITALS: BP 118/73; PULSE 75; TEMP 36.2
[2020-07-02] MEDS: traZODone HCL 100 MG TABLET 200 MG PO (20:44)
[2020-07-03 06:00] VITALS: BP 117/64; PULSE 76; RESP 16; TEMP 36.2
[2020-07-03] MEDS: Omeprazole 20 MG CAPSULE.DR PO (06:35)
[2020-07-03] MEDS: OXcarbazepine 300 MG TABLET 600 MG PO ×2 (09:39→22:06)
[2020-07-03] MEDS: Perphenazine 8 MG TABLET PO ×3 (09:40→22:06)
[2020-07-03] MEDS: busPIRone HCl 10 MG TABLET PO ×3 (09:40→22:06)
[2020-07-03] MEDS: Benztropine Mesylate 0.5 MG TABLET PO ×2 (09:41→22:05)
[2020-07-03] MEDS: Buprenorphine/Naloxone 8/2 mg FILM 1 FILM SUBLINGUAL (09:41)
[2020-07-03] MEDS: Multivitamin TABLET 1 TAB PO (09:41)
[2020-07-03] MEDS: risperiDONE Oral Sol 1 MG/ML SOLUTION 2 MG PO ×2 (09:42→22:06)
[2020-07-03 10:04] VITALS: BP 117/64; PULSE 76
[2020-07-03] MEDS: cloNIDine HCL 0.1 MG TABLET PO (10:04)
[2020-07-03] MEDS: Triamcinolone Acet 0.5 % Cream 15 GM TUBE 1 APPL TOPICAL (10:22)
[2020-07-03] MEDS: Docusate Sodium 100 MG CAPSULE PO ×2 (10:22→22:06)
[2020-07-03] MEDS: Buprenorphine/Naloxone 4/1 mg FILM 1 FILM SUBLINGUAL (17:04)
[2020-07-03 18:00] VITALS: BP 102/54; PULSE 77; TEMP 35.9
[2020-07-03] MEDS: traZODone HCL 100 MG TABLET 200 MG PO (22:06)
--- NOTE | 2020-07-03 23:28 | HO.PSYCHPN ---
Subjective Subjective Reason For Visit: Unspecified Psychotic Interim History: Pt remains labile. He is however trying to be calmer and to manage his anger. He is able to see how this interferes with his functioning, and ability to manage in the community. Compliant with meds. Has had some outbursts but overall controlled. Reiterated behavioral control, and med compliance Triggered by one pt one the unit whom he wants to [protect c/o r sided pain Mental Status Exam Mental Status Exam Narrative: not wearing mask wearing socks on his hands somewhat bizarre Patient Appearance: Appropriate Patient Orientation: Person, Place, Time and Situation Level of Consciousness: Awake Patient Behavior: Talkative and Swearing (at times then regretful) Mood Description: Anxious, Labile and Apprehensive Affect Description: Suspicious Patient Cognition Impaired: No Ability to Follow Directions: Fair Speech Pattern: Rambling Memory Description: Intact Thought Content: positive for [place], positive for Perseveration and positive for Tangential Depressive Symptoms: Difficulty Concentrating Judgement: Poor Diagnostics Vital Signs (24Hr): Vital Signs - 24 hr 07/03/20 06:00 07/03/20 10:04 07/03/20 18:00 Temperature 97.1 F 96.6 F L Pulse Rate 76 76 77 Respiratory Rate 16 Blood Pressure 117/64 117/64 102/54 L Body Mass Index 30.0 Labs Results: 06/14/20 19:20 07/04/20 08:43 Medications Medications Current Medications Generic Name Dose Route Start Last Admin Trade Name Freq PRN Reason Stop Dose Admin Acetaminophen 650 mg 06/17/20 00:01 06/29/20 06:35 Acetaminophen 325 Mg Tablet PO 650 mg Q6H PRN Administration HEADACHE/PAIN.MAIN (SCALE 1-3) Al Hydroxide/Mg Hydroxide 30 ml 06/17/20 00:01 06/19/20 09:19 Magnesium Hydrox/Alum Hydrox 30 Ml Oral.Susp PO 30 ml Q6H PRN Administration HEARTBURN/NAUSEA Benztropine Mesylate 0.5 mg 06/17/20 08:30 07/03/20 22:05 Benztropine Mesylate 0.5 Mg Tablet PO 0.5 mg BID@0830,2100 CHANDA Administration Buprenorphine/Naloxone 1 film 06/17/20 09:00 07/03/20 09:41 Buprenorphine/Naloxone 8/2 Mg Film SUBLINGUAL 1 film DAILY CHANDA Administration Buprenorphine/Naloxone 1 film 06/29/20 17:00 07/03/20 17:04 Buprenorphine/Naloxone 4/1 Mg Film SUBLINGUAL 1 film DAILY@1700 CHANDA Administration Buspirone HCl 10 mg 06/17/20 08:30 07/03/20 22:06 Buspirone Hcl 10 Mg Tablet PO 10 mg TID@0830,1330,2100 CHANDA Administration Calcium Carbonate 750 mg 06/24/20 20:08 06/26/20 23:11 Calcium Carbonate 750 Mg Tab.Chew PO 750 mg Q6H PRN Administration Heartburn Clonidine HCl 0.1 mg 06/19/20 19:46 07/03/20 10:04 Clonidine Hcl 0.1 Mg Tablet PO 0.1 mg BID PRN Administration anxiety/restlessness Docusate Sodium 100 mg 06/27/20 21:00 07/03/20 22:06 Docusate Sodium 100 Mg Capsule PO 100 mg BID CHANDA Administration Hydroxyzine HCl 25 mg 06/17/20 21:00 07/01/20 21:20 Hydroxyzine Hcl 25 Mg Tablet PO 25 mg BEDTIME MRX1 PRN Administration NIGHT TIME ANXIETY Ibuprofen 600 mg 06/17/20 14:02 07/01/20 11:45 Ibuprofen 600 Mg Tablet PO 600 mg Q6H PRN Administration Pain, Moderate (Pain Scale 4-6 Magnesium Citrate 150 ml 06/27/20 10:02 06/27/20 10:19 Magnesium Citrate 300 Ml Solution PO 150 ml DAILY PRN Administration Constipation Magnesium Hydroxide 30 ml 06/17/20 00:01 06/25/20 23:01 Milk Of Magnesia 30 Ml Oral.Susp PO 30 ml Q24H PRN Administration Constipation Multivitamins/Vitamin C 1 tab 06/17/20 09:00 07/03/20 09:41 Multivitamin Tablet PO 1 tab DAILY CHANDA Administration Nicotine Polacrilex 2 mg 06/17/20 00:01 06/28/20 13:37 Nicotine Polacrilex 2 Mg Gum BUCCAL 2 mg Q2H PRN Administration Nicotine Cravings Omeprazole 20 mg 06/17/20 06:30 07/03/20 06:35 Omeprazole 20 Mg Capsule.Dr PO 20 mg DAILY@0630 CHANDA Administration Oxcarbazepine 600 mg 06/17/20 08:30 07/03/20 22:06 Oxcarbazepine 300 Mg Tablet PO 600 mg BID@0830,2100 CHANDA Administration Perphenazine 8 mg 06/17/20 00:01 06/29/20 11:26 Perphenazine 8 Mg Tablet PO 8 mg Q4H PRN Administration anxiety/restlessness Perphenazine 8 mg 06/17/20 09:00 07/03/20 22:06 Perphenazine 8 Mg Tablet PO 8 mg TID CHANDA Administration Risperidone 2 mg 06/29/20 21:00 07/03/20 22:06 Risperidone Oral Shara 1 Mg/Ml Solution PO 2 mg BID CHANDA Administration Trazodone HCl 200 mg 06/17/20 21:00 07/03/20 22:06 Trazodone Hcl 100 Mg Tablet PO 200 mg BEDTIME CHANDA Administration Trazodone HCl 50 mg 06/17/20 21:00 06/30/20 23:51 Trazodone Hcl 50 Mg Tablet PO 50 mg BEDTIME MRX1 PRN Administration Insomnia Triamcinolone Acetonide 1 appl 06/17/20 08:30 07/03/20 22:07 Triamcinolone Acet 0.5 % Cream 15 Gm Tube TOPICAL Not Given BID@829,2099 CHANDA Allergies Allergies Allergy/AdvReac Type Severity Reaction Status Date / Time haloperidol [From HALDOL] Allergy Intermediate UNKNOWN Verified 06/17/20 16:04 Assessment & Plan Assessment & Plan (1) Schizophrenia: Qualifiers: Schizophrenia type: paranoid schizophrenia Qualified Code(s): F20.0 - Paranoid schizophrenia Status: Acute Code(s): F20.9 - Schizophrenia, unspecified Assessment and Plan: CT risperdal Consider risperdal consta next week SW to liase with [facility] ct perphenazine ck lft viral load hx hep c in lft but improving Greater than 50% of the session was spent on counseling and/or coordination of care
[2020-07-03] MEDS: hydrOXYzine HCL 25 MG TABLET PO (23:50)
[2020-07-03] MEDS: traZODone HCL 50 MG TABLET PO (23:50)
[2020-07-04] MEDS: Omeprazole 20 MG CAPSULE.DR PO (08:10)
[2020-07-04] MEDS: OXcarbazepine 300 MG TABLET 600 MG PO ×2 (08:10→20:08)
[2020-07-04] MEDS: busPIRone HCl 10 MG TABLET PO ×3 (08:10→20:10)
[2020-07-04] MEDS: Buprenorphine/Naloxone 8/2 mg FILM 1 FILM SUBLINGUAL (08:11)
[2020-07-04] MEDS: Perphenazine 8 MG TABLET PO ×3 (08:11→20:10)
[2020-07-04] MEDS: Multivitamin TABLET 1 TAB PO (08:11)
[2020-07-04] MEDS: Benztropine Mesylate 0.5 MG TABLET PO ×2 (08:11→20:10)
[2020-07-04] MEDS: risperiDONE Oral Sol 1 MG/ML SOLUTION 2 MG PO ×2 (08:12→20:10)
[2020-07-04 08:34] VITALS: BP 144/72; PULSE 80
[2020-07-04] MEDS: cloNIDine HCL 0.1 MG TABLET PO (08:34)
[2020-07-04] MEDS: Triamcinolone Acet 0.5 % Cream 15 GM TUBE 1 APPL TOPICAL (08:45)
[2020-07-04 09:39] LABS: Alanine Aminotransferase 74 U/L (0-40); Albumin Level 4.2 g/dL (3.5-5.0); Alkaline Phosphatase 57 U/L (39-117); Anion Gap 12 (12-20); Aspartate Amino Transferase 44 U/L (5-37); Bilirubin Total 0.4 mg/dL (0.0-1.0); Blood Urea Nitrogen 17 mg/dL (9-16); Carbon Dioxide 32 mmol/L (22-29); Chloride 96 mmol/L (96-108); Creatinine Clr Calc Pharmacy 108.6; Estimated Glomerular Filt Rate > 60; Glucose Fasting 92 mg/dL (60-99); Potassium 4.4 mmol/l (3.3-5.1); Sodium 136 mmol/L (135-145); Total Protein 7.3 g/dL (6.5-8.0)
[2020-07-04] MEDS: Docusate Sodium 100 MG CAPSULE PO ×2 (10:12→20:11)
--- NOTE | 2020-07-04 11:56 | HO.PSYCHPN ---
Subjective Subjective Reason For Visit: Unspecified Psychotic Interim History: Maurice continues to be quite intrusive with his peers irritable aggressive at times Mental Status Exam Mental Status Exam Narrative: not wearing mask wearing socks on his hands somewhat bizarre Patient Appearance: Appropriate (but without mask) Patient Orientation: Person, Place, Time and Situation Level of Consciousness: Awake and Appropriate Patient Behavior: Talkative, Swearing (at times then regretful) and Invasion - Personal Space Mood Description: Anxious and Labile Affect Description: Suspicious Patient Cognition Impaired: No Ability to Follow Directions: Fair Speech Pattern: Rambling and Includes Profanity Memory Description: Intact Diagnostics Vital Signs (24Hr): Vital Signs - 24 hr 07/03/20 18:00 07/04/20 08:34 Temperature 96.6 F L Pulse Rate 77 80 Blood Pressure 102/54 L 144/72 H Body Mass Index 30.0 Labs Results: 06/14/20 19:20 07/04/20 08:43 Labs: Laboratory Results - last 48 hr 07/04/20 08:43 Sodium 136 Potassium 4.4 Chloride 96 Carbon Dioxide 32 H Anion Gap 12 BUN 17 H Creatinine 0.80 Estim Creat Clear Calc 108.6 Estimated GFR > 60 Fasting Glucose 92 Calcium 9.0 Total Bilirubin 0.4 AST 44 H D ALT 74 H Alkaline Phosphatase 57 Total Protein 7.3 Albumin 4.2 Medications Medications Current Medications Generic Name Dose Route Start Last Admin Trade Name Freq PRN Reason Stop Dose Admin Acetaminophen 650 mg 06/17/20 00:01 06/29/20 06:35 Acetaminophen 325 Mg Tablet PO 650 mg Q6H PRN Administration HEADACHE/PAIN.MAIN (SCALE 1-3) Al Hydroxide/Mg Hydroxide 30 ml 06/17/20 00:01 06/19/20 09:19 Magnesium Hydrox/Alum Hydrox 30 Ml Oral.Susp PO 30 ml Q6H PRN Administration HEARTBURN/NAUSEA Benztropine Mesylate 0.5 mg 06/17/20 08:30 07/04/20 08:11 Benztropine Mesylate 0.5 Mg Tablet PO 0.5 mg BID@0830,2100 CHANDA Administration Buprenorphine/Naloxone 1 film 06/17/20 09:00 07/04/20 08:11 Buprenorphine/Naloxone 8/2 Mg Film SUBLINGUAL 1 film DAILY CHANDA Administration Buprenorphine/Naloxone 1 film 06/29/20 17:00 07/03/20 17:04 Buprenorphine/Naloxone 4/1 Mg Film SUBLINGUAL 1 film DAILY@1700 CHANDA Administration Buspirone HCl 10 mg 06/17/20 08:30 07/04/20 08:10 Buspirone Hcl 10 Mg Tablet PO 10 mg TID@0830,1330,2100 CHANDA Administration Calcium Carbonate 750 mg 06/24/20 20:08 06/26/20 23:11 Calcium Carbonate 750 Mg Tab.Chew PO 750 mg Q6H PRN Administration Heartburn Clonidine HCl 0.1 mg 06/19/20 19:46 07/04/20 08:34 Clonidine Hcl 0.1 Mg Tablet PO 0.1 mg BID PRN Administration anxiety/restlessness Docusate Sodium 100 mg 06/27/20 21:00 07/04/20 10:12 Docusate Sodium 100 Mg Capsule PO 100 mg BID CHANDA Administration Hydroxyzine HCl 25 mg 06/17/20 21:00 07/03/20 23:50 Hydroxyzine Hcl 25 Mg Tablet PO 25 mg BEDTIME MRX1 PRN Administration NIGHT TIME ANXIETY Ibuprofen 600 mg 06/17/20 14:02 07/01/20 11:45 Ibuprofen 600 Mg Tablet PO 600 mg Q6H PRN Administration Pain, Moderate (Pain Scale 4-6 Magnesium Citrate 150 ml 06/27/20 10:02 06/27/20 10:19 Magnesium Citrate 300 Ml Solution PO 150 ml DAILY PRN Administration Constipation Magnesium Hydroxide 30 ml 06/17/20 00:01 06/25/20 23:01 Milk Of Magnesia 30 Ml Oral.Susp PO 30 ml Q24H PRN Administration Constipation Multivitamins/Vitamin C 1 tab 06/17/20 09:00 07/04/20 08:11 Multivitamin Tablet PO 1 tab DAILY CHANDA Administration Nicotine Polacrilex 2 mg 06/17/20 00:01 06/28/20 13:37 Nicotine Polacrilex 2 Mg Gum BUCCAL 2 mg Q2H PRN Administration Nicotine Cravings Omeprazole 20 mg 06/17/20 06:30 07/04/20 08:10 Omeprazole 20 Mg Capsule.Dr PO 20 mg DAILY@0630 CHANDA Administration Oxcarbazepine 600 mg 06/17/20 08:30 07/04/20 08:10 Oxcarbazepine 300 Mg Tablet PO 600 mg BID@0830,2100 CHANDA Administration Perphenazine 8 mg 06/17/20 00:01 06/29/20 11:26 Perphenazine 8 Mg Tablet PO 8 mg Q4H PRN Administration anxiety/restlessness Perphenazine 8 mg 06/17/20 09:00 07/04/20 08:11 Perphenazine 8 Mg Tablet PO 8 mg TID CHANDA Administration Risperidone 2 mg 06/29/20 21:00 07/04/20 08:12 Risperidone Oral Shara 1 Mg/Ml Solution PO 2 mg BID CHANDA Administration Trazodone HCl 200 mg 06/17/20 21:00 07/03/20 22:06 Trazodone Hcl 100 Mg Tablet PO 200 mg BEDTIME CHANDA Administration Trazodone HCl 50 mg 06/17/20 21:00 07/03/20 23:50 Trazodone Hcl 50 Mg Tablet PO 50 mg BEDTIME MRX1 PRN Administration Insomnia Triamcinolone Acetonide 1 appl 06/17/20 08:30 07/04/20 08:45 Triamcinolone Acet 0.5 % Cream 15 Gm Tube TOPICAL 1 appl BID@0830,2100 CHANDA Administration Allergies Allergies Allergy/AdvReac Type Severity Reaction Status Date / Time haloperidol [From HALDOL] Allergy Intermediate UNKNOWN Verified 06/17/20 16:04 Assessment & Plan Assessment & Plan (1) Schizophrenia: Qualifiers: Schizophrenia type: paranoid schizophrenia Qualified Code(s): F20.0 - Paranoid schizophrenia Status: Acute Code(s): F20.9 - Schizophrenia, unspecified Assessment and Plan: CT risperdal Administer risperdal consta when available Hearing scheduled 07/08/20 for commitment (2) Lack of housing: Status: Acute Code(s): Z59.0 - Homelessness Assessment and Plan: sw to follow Greater than 50% of the session was spent on counseling and/or coordination of care
[2020-07-04] MEDS: Nicotine Polacrilex 2 MG GUM BUCCAL (13:54)
[2020-07-04] MEDS: Buprenorphine/Naloxone 4/1 mg FILM 1 FILM SUBLINGUAL (17:07)
[2020-07-04 18:00] VITALS: BP 92/55; PULSE 63; TEMP 36.7
[2020-07-04] MEDS: traZODone HCL 100 MG TABLET 200 MG PO (20:10)
[2020-07-04] MEDS: hydrOXYzine HCL 25 MG TABLET PO (22:17)
[2020-07-04] MEDS: traZODone HCL 50 MG TABLET PO (22:17)
[2020-07-05 06:00] VITALS: BP 112/79; PULSE 85; TEMP 36.2; O2SAT 96
[2020-07-05] MEDS: Omeprazole 20 MG CAPSULE.DR PO (09:27)
[2020-07-05] MEDS: busPIRone HCl 10 MG TABLET PO ×3 (09:27→20:10)
[2020-07-05] MEDS: Buprenorphine/Naloxone 8/2 mg FILM 1 FILM SUBLINGUAL (09:27)
[2020-07-05] MEDS: OXcarbazepine 300 MG TABLET 600 MG PO ×2 (09:27→20:10)
[2020-07-05] MEDS: risperiDONE Oral Sol 1 MG/ML SOLUTION 2 MG PO ×3 (09:27→21:43)
[2020-07-05] MEDS: Benztropine Mesylate 0.5 MG TABLET PO ×2 (09:27→20:10)
[2020-07-05] MEDS: Perphenazine 8 MG TABLET PO ×3 (09:27→20:10)
[2020-07-05] MEDS: Multivitamin TABLET 1 TAB PO (09:27)
[2020-07-05] MEDS: Docusate Sodium 100 MG CAPSULE PO ×2 (09:28→20:10)
--- NOTE | 2020-07-05 09:36 | HO.PSYCHPN ---
Subjective Subjective Date of Service: 07/05/20 Reason For Visit: Unspecified Psychotic Subjective Notes: [place] Warning, [place] Order and Legal Status (s.7) Interim History: Maurice continues to be quite intrusive with his peers in an effort to help them. He has been taking liquid risperdal and does seem to be slowly improving. Risperdal consta has been ordered and will be picked up from [facility] Medication Compliance: Yes Side effects from medications: No Attending Groups: Intermittent Review of Systems Acute medical concerns: No Medical Review of Systems: unchanged Mental Status Exam Mental Status Exam Patient Appearance: Appropriate (but without mask) Patient Orientation: Person, Place, Time and Situation Level of Consciousness: Awake and Appropriate Patient Behavior: Talkative, Swearing (at times then regretful) and Invasion - Personal Space Mood Description: Anxious and Labile Affect Description: Suspicious Patient Cognition Impaired: No Ability to Follow Directions: Fair Speech Pattern: Rambling and Includes Profanity Memory Description: Intact Hallucinations: None Delusions: Paranoid Ideation and Grandiose Thought Process: Goal Oriented Thought Content: positive for [place], positive for Perseveration, positive for Tangential, negative for Suicidal Ideation and negative for Homicidal Ideation Depressive Symptoms: Difficulty Concentrating Judgement: Poor Diagnostics Vital Signs (24Hr): Vital Signs - 24 hr 07/04/20 18:00 07/05/20 06:00 Temperature 98.1 F 97.1 F Pulse Rate 63 85 Blood Pressure 92/55 L 112/79 Pulse Oximetry 96 Body Mass Index 30.0 Labs Results: 06/14/20 19:20 07/04/20 08:43 Labs: Laboratory Results - last 48 hr 07/04/20 08:43 Sodium 136 Potassium 4.4 Chloride 96 Carbon Dioxide 32 H Anion Gap 12 BUN 17 H Creatinine 0.80 Estim Creat Clear Calc 108.6 Estimated GFR > 60 Fasting Glucose 92 Calcium 9.0 Total Bilirubin 0.4 AST 44 H D ALT 74 H Alkaline Phosphatase 57 Total Protein 7.3 Albumin 4.2 Medications Medications Current Medications Generic Name Dose Route Start Last Admin Trade Name Freq PRN Reason Stop Dose Admin Acetaminophen 650 mg 06/17/20 00:01 06/29/20 06:35 Acetaminophen 325 Mg Tablet PO 650 mg Q6H PRN Administration HEADACHE/PAIN.MAIN (SCALE 1-3) Al Hydroxide/Mg Hydroxide 30 ml 06/17/20 00:06/19/20 09:19 Magnesium Hydrox/Alum Hydrox 30 Ml Oral.Susp PO 30 ml Q6H PRN Administration HEARTBURN/NAUSEA Benztropine Mesylate 0.5 mg 06/17/20 08:30 07/05/20 09:27 Benztropine Mesylate 0.5 Mg Tablet PO 0.5 mg BID@0830,2100 CHANDA Administration Buprenorphine/Naloxone 1 film 06/17/20 09:00 07/05/20 09:27 Buprenorphine/Naloxone 8/2 Mg Film SUBLINGUAL 1 film DAILY CHANDA Administration Buprenorphine/Naloxone 1 film 06/29/20 17:00 07/04/20 17:07 Buprenorphine/Naloxone 4/1 Mg Film SUBLINGUAL 1 film DAILY@1700 CHANDA Administration Buspirone HCl 10 mg 06/17/20 08:30 07/05/20 09:27 Buspirone Hcl 10 Mg Tablet PO 10 mg TID@0830,1330,2100 CHANDA Administration Calcium Carbonate 750 mg 06/24/20 20:08 06/26/20 23:11 Calcium Carbonate 750 Mg Tab.Chew PO 750 mg Q6H PRN Administration Heartburn Clonidine HCl 0.1 mg 06/19/20 19:46 07/04/20 08:34 Clonidine Hcl 0.1 Mg Tablet PO 0.1 mg BID PRN Administration anxiety/restlessness Docusate Sodium 100 mg 06/27/20 21:00 07/05/20 09:28 Docusate Sodium 100 Mg Capsule PO 100 mg BID CHANDA Administration Hydroxyzine HCl 25 mg 06/17/20 21:00 07/04/20 22:17 Hydroxyzine Hcl 25 Mg Tablet PO 25 mg BEDTIME MRX1 PRN Administration NIGHT TIME ANXIETY Ibuprofen 600 mg 06/17/20 14:02 07/01/20 11:45 Ibuprofen 600 Mg Tablet PO 600 mg Q6H PRN Administration Pain, Moderate (Pain Scale 4-6 Magnesium Citrate 150 ml 06/27/20 10:02 06/27/20 10:19 Magnesium Citrate 300 Ml Solution PO 150 ml DAILY PRN Administration Constipation Magnesium Hydroxide 30 ml 06/17/20 00:01 06/25/20 23:01 Milk Of Magnesia 30 Ml Oral.Susp PO 30 ml Q24H PRN Administration Constipation Multivitamins/Vitamin C 1 tab 06/17/20 09:00 07/05/20 09:27 Multivitamin Tablet PO 1 tab DAILY CHANDA Administration Nicotine Polacrilex 2 mg 06/17/20 00:01 07/04/20 13:54 Nicotine Polacrilex 2 Mg Gum BUCCAL 2 mg Q2H PRN Administration Nicotine Cravings Omeprazole 20 mg 06/17/20 06:30 07/05/20 09:27 Omeprazole 20 Mg Capsule. PO 20 mg DAILY@0630 CHANDA Administration Oxcarbazepine 600 mg 06/17/20 08:30 07/05/20 09:27 Oxcarbazepine 300 Mg Tablet PO 600 mg BID@829,2099 CHANDA Administration Perphenazine 8 mg 06/17/20 00:01 06/29/20 11:26 Perphenazine 8 Mg Tablet PO 8 mg Q4H PRN Administration anxiety/restlessness Perphenazine 8 mg 06/17/20 09:00 07/05/20 09:27 Perphenazine 8 Mg Tablet PO 8 mg TID CHANDA Administration Risperidone 2 mg 06/29/20 21:00 07/05/20 09:27 Risperidone Oral Shara 1 Mg/Ml Solution PO 2 mg BID CHANDA Administration Trazodone HCl 200 mg 06/17/20 21:00 07/04/20 20:10 Trazodone Hcl 100 Mg Tablet PO 200 mg BEDTIME CHANDA Administration Trazodone HCl 50 mg 06/17/20 21:00 07/04/20 22:17 Trazodone Hcl 50 Mg Tablet PO 50 mg BEDTIME MRX1 PRN Administration Insomnia Triamcinolone Acetonide 1 appl 06/17/20 08:30 07/05/20 09:30 Triamcinolone Acet 0.5 % Cream 15 Gm Tube TOPICAL Not Given BID@829,2099 [facility] Zolpidem Tartrate 5 mg 07/05/20 09:32 Zolpidem Tartrate 5 Mg Tablet PO BEDTIME PRN Insomnia Allergies Allergies Allergy/AdvReac Type Severity Reaction Status Date / Time haloperidol [From HALDOL] Allergy Intermediate UNKNOWN Verified 06/17/20 16:04 Assessment & Plan Assessment & Plan (1) Schizophrenia: Qualifiers: Schizophrenia type: paranoid schizophrenia Qualified Code(s): F20.0 - Paranoid schizophrenia Status: Acute Code(s): F20.9 - Schizophrenia, unspecified (2) Lack of housing: Status: Acute Code(s): Z59.0 - Homelessness Assessment and Plan: CT risperdal Administer risperdal consta when available When stable will go to [facility]. Hearing scheduled 07/08/20 for commitment Greater than 50% of the session was spent on counseling and/or coordination of care Patient educated on: diagnosis, medication risk/benefits and substance abuse Informed Consent: further education needed Reason for contiued inpatient stay Substantial Risk for: inability to function and rapid decompensation
[2020-07-05 09:40] VITALS: BP 112/79; PULSE 85
[2020-07-05] MEDS: cloNIDine HCL 0.1 MG TABLET PO (09:40)
[2020-07-05] MEDS: Buprenorphine/Naloxone 4/1 mg FILM 1 FILM SUBLINGUAL (16:15)
[2020-07-05 18:00] VITALS: BP 109/61; PULSE 82; TEMP 36.2
[2020-07-05] MEDS: Zolpidem Tartrate 5 MG TABLET PO (20:10)
[2020-07-05] MEDS: traZODone HCL 100 MG TABLET 200 MG PO (20:10)
[2020-07-05] MEDS: Ibuprofen 600 MG TABLET PO (21:32)
[2020-07-05] MEDS: Benztropine Mesylate 1 MG TABLET PO (21:43)
[2020-07-05] MEDS: LORazepam 1 MG TABLET PO (21:43)
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
[2020-07-06] MEDS: OXcarbazepine 300 MG TABLET 600 MG PO ×2 (08:43→21:19)
[2020-07-06] MEDS: Omeprazole 20 MG CAPSULE.DR PO (08:43)
[2020-07-06] MEDS: Multivitamin TABLET 1 TAB PO (08:43)
[2020-07-06] MEDS: busPIRone HCl 10 MG TABLET PO ×3 (08:43→21:18)
[2020-07-06] MEDS: Perphenazine 8 MG TABLET PO ×3 (08:43→21:19)
[2020-07-06] MEDS: Benztropine Mesylate 0.5 MG TABLET PO ×2 (08:43→21:19)
[2020-07-06] MEDS: Docusate Sodium 100 MG CAPSULE PO ×2 (08:44→21:19)
[2020-07-06] MEDS: Buprenorphine/Naloxone 8/2 mg FILM 1 FILM SUBLINGUAL (08:44)
[2020-07-06] MEDS: risperiDONE Oral Sol 1 MG/ML SOLUTION 3 MG PO ×2 (09:01→21:18)
[2020-07-06] MEDS: Triamcinolone Acet 0.5 % Cream 15 GM TUBE 1 APPL TOPICAL (09:02)
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
[2020-07-06 10:11] VITALS: BP 132/88; PULSE 88; RESP 16; TEMP 36.2
[2020-07-06 13:27] VITALS: BP 129/65; PULSE 107
[2020-07-06] MEDS: cloNIDine HCL 0.1 MG TABLET PO (13:27)
[2020-07-06] MEDS: Buprenorphine/Naloxone 4/1 mg FILM 1 FILM SUBLINGUAL (16:44)
[2020-07-06 18:00] VITALS: BP 114/56; PULSE 81; TEMP 36.5
[2020-07-06] MEDS: traZODone HCL 100 MG TABLET 200 MG PO (21:19)
[2020-07-06] MEDS: Zolpidem Tartrate 5 MG TABLET PO (22:27)
[2020-07-06] MEDS: Calcium Carbonate 750 MG TAB.CHEW PO (22:28)
[2020-07-07] MEDS: busPIRone HCl 10 MG TABLET PO ×3 (09:07→20:52)
[2020-07-07] MEDS: Omeprazole 20 MG CAPSULE.DR PO (09:07)
[2020-07-07] MEDS: Ibuprofen 600 MG TABLET PO ×2 (09:08→19:37)
[2020-07-07] MEDS: Benztropine Mesylate 0.5 MG TABLET PO ×2 (09:08→20:51)
[2020-07-07] MEDS: cloNIDine HCL 0.1 MG TABLET PO (09:08)
[2020-07-07] MEDS: OXcarbazepine 300 MG TABLET 600 MG PO ×2 (09:08→20:51)
[2020-07-07] MEDS: Multivitamin TABLET 1 TAB PO (09:09)
[2020-07-07] MEDS: Docusate Sodium 100 MG CAPSULE PO ×2 (09:09→20:52)
[2020-07-07] MEDS: risperiDONE Oral Sol 1 MG/ML SOLUTION 3 MG PO ×2 (09:09→20:51)
[2020-07-07] MEDS: Buprenorphine/Naloxone 8/2 mg FILM 1 FILM SUBLINGUAL (09:09)
[2020-07-07] MEDS: Perphenazine 8 MG TABLET PO ×3 (09:09→20:52)
[2020-07-07] MEDS: Triamcinolone Acet 0.5 % Cream 15 GM TUBE 1 APPL TOPICAL ×2 (09:19→20:51)
--- NOTE | 2020-07-07 09:41 | HO.PSYCHPN ---
Subjective Subjective Date of Service: 07/07/20 Reason For Visit: Unspecified Psychotic Subjective Notes: [place] Warning, [place] Order and Legal Status (s.7) Interim History: Maurice continues to be quite intrusive with his peers in an effort to help them. He was more re-directable today. He is upset about the higher dose of risperdal, but he did take it. I attempted to talk with his about risperdal consta. It was ordered. He became very angry and stormed away saying he was going to call his traffic law attorney. Nursing would continue to work with him. He has a court hearing for commitment on 07/12/20 Medication Compliance: Yes Side effects from medications: No Attending Groups: Intermittent Review of Systems Acute medical concerns: No Medical Review of Systems: unchanged Mental Status Exam Mental Status Exam Patient Appearance: Appropriate (but without mask) Patient Orientation: Person, Place, Time and Situation Level of Consciousness: Awake and Combative Patient Behavior: Talkative, Swearing (at times then regretful), Invasion - Personal Space and Combative Mood Description: Hostile, Anxious, Labile and Angry Affect Description: Suspicious, Hostile, Labile and Angry Patient Cognition Impaired: No Ability to Follow Directions: Fair Speech Pattern: Rambling and Includes Profanity Memory Description: Intact Hallucinations: None Delusions: Paranoid Ideation and Grandiose Thought Process: Goal Oriented Thought Content: positive for [place], positive for Perseveration, positive for [place], negative for Suicidal Ideation and negative for Homicidal Ideation Depressive Symptoms: Difficulty Concentrating Judgement: Poor Diagnostics Vital Signs (24Hr): Vital Signs - 24 hr 07/06/20 10:11 07/06/20 13:27 07/06/20 18:00 Temperature 97.1 F 97.7 F Pulse Rate 88 107 H 81 Respiratory Rate 16 Blood Pressure 132/88 129/65 114/56 L Body Mass Index 30.0 Labs Results: 06/14/20 19:20 07/04/20 08:43 Medications Medications Current Medications Generic Name Dose Route Start Last Admin Trade Name Freq PRN Reason Stop Dose Admin Acetaminophen 650 mg 06/17/20 00:01 06/29/20 06:35 Acetaminophen 325 Mg Tablet PO 650 mg Q6H PRN Administration HEADACHE/PAIN.MAIN (SCALE 1-3) Al Hydroxide/Mg Hydroxide 30 ml 06/17/20 00:01 06/19/20 09:19 Magnesium Hydrox/Alum Hydrox 30 Ml Oral.Susp PO 30 ml Q6H PRN Administration HEARTBURN/NAUSEA Benztropine Mesylate 0.5 mg 06/17/20 08:30 07/07/20 09:08 Benztropine Mesylate 0.5 Mg Tablet PO 0.5 mg BID@0830,2100 CHANDA Administration Buprenorphine/Naloxone 1 film 06/17/20 09:00 07/07/20 09:09 Buprenorphine/Naloxone 8/2 Mg Film SUBLINGUAL 1 film DAILY CHANDA Administration Buprenorphine/Naloxone 1 film 06/29/20 17:00 07/06/20 16:44 Buprenorphine/Naloxone 4/1 Mg Film SUBLINGUAL 1 film DAILY@1700 CHANDA Administration Buspirone HCl 10 mg 06/17/20 08:30 07/07/20 09:07 Buspirone Hcl 10 Mg Tablet PO 10 mg TID@0830,1330,2100 CHANDA Administration Calcium Carbonate 750 mg 06/24/20 20:08 07/06/20 22:28 Calcium Carbonate 750 Mg Tab.Chew PO 750 mg Q6H PRN Administration Heartburn Clonidine HCl 0.1 mg 06/19/20 19:46 07/07/20 09:08 Clonidine Hcl 0.1 Mg Tablet PO 0.1 mg BID PRN Administration anxiety/restlessness Docusate Sodium 100 mg 06/27/20 21:00 07/07/20 09:09 Docusate Sodium 100 Mg Capsule PO 100 mg BID CHANDA Administration Hydroxyzine HCl 25 mg 06/17/20 21:00 07/04/20 22:17 Hydroxyzine Hcl 25 Mg Tablet PO 25 mg BEDTIME MRX1 PRN Administration NIGHT TIME ANXIETY Ibuprofen 600 mg 06/17/20 14:02 07/07/20 09:08 Ibuprofen 600 Mg Tablet PO 600 mg Q6H PRN Administration Pain, Moderate (Pain Scale 4-6 Lorazepam 1 mg 07/05/20 22:58 Lorazepam 1 Mg Tablet PO Q4H PRN anxiety/restlessness Magnesium Citrate 150 ml 06/27/20 10:02 06/27/20 10:19 Magnesium Citrate 300 Ml Solution PO 150 ml DAILY PRN Administration Constipation Magnesium Hydroxide 30 ml 06/17/20 00:01 06/25/20 23:01 Milk Of Magnesia 30 Ml Oral.Susp PO 30 ml Q24H PRN Administration Constipation Multivitamins/Vitamin C 1 tab 06/17/20 09:00 07/07/20 09:09 Multivitamin Tablet PO 1 tab DAILY CHANDA Administration Nicotine Polacrilex 2 mg 06/17/20 00:01 07/04/20 13:54 Nicotine Polacrilex 2 Mg Gum BUCCAL 2 mg Q2H PRN Administration Nicotine Cravings Omeprazole 20 mg 06/17/20 06:30 07/07/20 09:07 Omeprazole 20 Mg Capsule.Dr PO 20 mg DAILY@0630 CHANAD Administration Oxcarbazepine 600 mg 06/17/20 08:30 07/07/20 09:08 Oxcarbazepine 300 Mg Tablet PO 600 mg BID@829,2100 CHANDA Administration Perphenazine 8 mg 06/17/20 00:01 06/29/20 11:26 Perphenazine 8 Mg Tablet PO 8 mg Q4H PRN Administration anxiety/restlessness Perphenazine 8 mg 06/17/20 09:00 07/07/20 09:09 Perphenazine 8 Mg Tablet PO 8 mg TID CHANDA Administration Risperidone 3 mg 07/06/20 09:00 07/07/20 09:09 Risperidone Oral Shara 1 Mg/Ml Solution PO 3 mg BID CHANDA Administration Trazodone HCl 200 mg 06/17/20 21:00 07/06/20 21:19 Trazodone Hcl 100 Mg Tablet PO 200 mg BEDTIME CHANDA Administration Trazodone HCl 50 mg 06/17/20 21:00 07/04/20 22:17 Trazodone Hcl 50 Mg Tablet PO 50 mg BEDTIME MRX1 PRN Administration Insomnia Triamcinolone Acetonide 1 appl 06/17/20 08:30 07/07/20 09:19 Triamcinolone Acet 0.5 % Cream 15 Gm Tube TOPICAL 1 appl BID@08,2100 CHANDA Administration Zolpidem Tartrate 5 mg 07/05/20 09:32 07/06/20 22:27 Zolpidem Tartrate 5 Mg Tablet PO 5 mg BEDTIME PRN Administration Insomnia Allergies Allergies Allergy/AdvReac Type Severity Reaction Status Date / Time haloperidol [From HALDOL] Allergy Intermediate UNKNOWN Verified 06/17/20 16:04 Assessment & Plan Assessment & Plan (1) Schizophrenia: Qualifiers: Schizophrenia type: paranoid schizophrenia Qualified Code(s): F20.0 - Paranoid schizophrenia Status: Acute Code(s): F20.9 - Schizophrenia, unspecified (2) Lack of housing: Status: Acute Code(s): Z59.0 - Homelessness Assessment and Plan: Continue medication without change Offer capri ledezma Liase with [facility] 07/12/20 Greater than 50% of the session was spent on counseling and/or coordination of care Patient educated on: diagnosis, medication risk/benefits and substance abuse Informed Consent: does not understand Reason for contiued inpatient stay Substantial Risk for: harm to others, inability to function and rapid decompensation
[2020-07-07 12:20] VITALS: BP 162/90; PULSE 93; TEMP 36.7; O2SAT 96
[2020-07-07] MEDS: LORazepam 1 MG TABLET PO ×2 (14:46→19:22)
[2020-07-07] MEDS: Buprenorphine/Naloxone 4/1 mg FILM 1 FILM SUBLINGUAL (16:25)
[2020-07-07 16:29] VITALS: BP 114/63; PULSE 87; TEMP 36.4
[2020-07-07] MEDS: traZODone HCL 100 MG TABLET 200 MG PO (20:51)
[2020-07-08 07:00] VITALS: BMI 30.4
[2020-07-08] MEDS: OXcarbazepine 300 MG TABLET 600 MG PO ×2 (10:00→20:52)
[2020-07-08] MEDS: Triamcinolone Acet 0.5 % Cream 15 GM TUBE 1 APPL TOPICAL ×2 (10:57→22:36)
[2020-07-08] MEDS: busPIRone HCl 10 MG TABLET PO ×3 (11:00→20:55)
[2020-07-08] MEDS: Perphenazine 8 MG TABLET PO ×3 (11:00→20:55)
[2020-07-08] MEDS: Omeprazole 20 MG CAPSULE.DR PO (11:01)
[2020-07-08] MEDS: Benztropine Mesylate 0.5 MG TABLET PO ×2 (11:01→20:54)
[2020-07-08] MEDS: Multivitamin TABLET 1 TAB PO (11:02)
[2020-07-08] MEDS: risperiDONE Oral Sol 1 MG/ML SOLUTION 3 MG PO ×2 (11:04→23:12)
[2020-07-08] MEDS: Docusate Sodium 100 MG CAPSULE PO ×2 (11:05→20:55)
[2020-07-08] MEDS: Buprenorphine/Naloxone 8/2 mg FILM 1 FILM SUBLINGUAL (11:05)
[2020-07-08] MEDS: LORazepam 1 MG TABLET PO (12:06)
[2020-07-08 13:00] VITALS: BP 106/67; PULSE 105; RESP 16; TEMP 37.2
--- NOTE | 2020-07-08 17:08 | P.PNPSI_ITS ---
Subjective Subjective Date of Service: 07/07/20 Reason For Visit: Unspecified Psychotic Subjective Notes: [place] Warning, [place] Order and Legal Status (s.7) Interim History: Maurice accepted risperdal consta today. He was more focused and engaged. He was not yelling in the halls and he was far less intrusive with his peers and staff. He has a court hearing for commitment on 07/12/20 Medication Compliance: Yes Side effects from medications: No Attending Groups: Intermittent Review of Systems Acute medical concerns: No Medical Review of Systems: unchanged Mental Status Exam Mental Status Exam Patient Appearance: Appropriate (but without mask) Patient Orientation: Person, Place, Time and Situation Level of Consciousness: Awake Patient Behavior: Talkative and Cooperative Mood Description: Anxious and Labile Affect Description: Anxious Patient Cognition Impaired: No Ability to Follow Directions: Fair Speech Pattern: Appropriate and Spontaneous Speech Memory Description: Intact Hallucinations: None Delusions: Paranoid Ideation Thought Process: Goal Oriented Thought Content: positive for [place], positive for Perseveration, positive for Tangential, negative for Suicidal Ideation and negative for Homicidal Ideation Depressive Symptoms: Difficulty Concentrating Judgement: Poor Diagnostics Vital Signs (24Hr): Vital Signs - 24 hr 07/08/20 13:00 Temperature 99 F Pulse Rate 105 H Respiratory Rate 16 Blood Pressure 106/67 Body Mass Index 30.4 Labs Results: 06/14/20 19:20 07/04/20 08:43 Medications Medications Current Medications Generic Name Dose Route Start Last Admin Trade Name Freq PRN Reason Stop Dose Admin Acetaminophen 650 mg 06/17/20 00:01 06/29/20 06:35 Acetaminophen 325 Mg Tablet PO 650 mg Q6H PRN Administration HEADACHE/PAIN.MAIN (SCALE 1-3) Al Hydroxide/Mg Hydroxide 30 ml 06/17/20 00:01 06/19/20 09:19 Magnesium Hydrox/Alum Hydrox 30 Ml Oral.Susp PO 30 ml Q6H PRN Administration HEARTBURN/NAUSEA Benztropine Mesylate 0.5 mg 06/17/20 08:30 07/08/20 11:01 Benztropine Mesylate 0.5 Mg Tablet PO 0.5 mg BID@0830,2100 [facility] Administration Buprenorphine/Naloxone 1 film 06/17/20 09:00 07/08/20 11:05 Buprenorphine/Naloxone 8/2 Mg Film SUBLINGUAL 1 film DAILY [facility] Administration Buprenorphine/Naloxone 1 film 06/29/20 17:00 07/07/20 16:25 Buprenorphine/Naloxone 4/1 Mg Film SUBLINGUAL 1 film DAILY@1700 [facility] Administration Buspirone HCl 10 mg 06/17/20 08:30 07/08/20 14:09 Buspirone Hcl 10 Mg Tablet PO 10 mg TID@0830,1330,2100 [facility] Administration Calcium Carbonate 750 mg 06/24/20 20:08 07/06/20 22:28 Calcium Carbonate 750 Mg Tab.Chew PO 750 mg Q6H PRN Administration Heartburn Clonidine HCl 0.1 mg 06/19/20 19:46 07/07/20 09:08 Clonidine Hcl 0.1 Mg Tablet PO 0.1 mg BID PRN Administration anxiety/restlessness Docusate Sodium 100 mg 06/27/20 21:00 07/08/20 11:05 Docusate Sodium 100 Mg Capsule PO 100 mg BID [facility] Administration Hydroxyzine HCl 25 mg 06/17/20 21:00 07/04/20 22:17 Hydroxyzine Hcl 25 Mg Tablet PO 25 mg BEDTIME MRX1 PRN Administration NIGHT TIME ANXIETY Ibuprofen 600 mg 06/17/20 14:02 07/07/20 19:37 Ibuprofen 600 Mg Tablet PO 600 mg Q6H PRN Administration Pain, Moderate (Pain Scale 4-6 Lorazepam 1 mg 07/05/20 22:58 07/08/20 12:06 Lorazepam 1 Mg Tablet PO 1 mg Q4H PRN Administration anxiety/restlessness Magnesium Citrate 150 ml 06/27/20 10:02 06/27/20 10:19 Magnesium Citrate 300 Ml Solution PO 150 ml DAILY PRN Administration Constipation Magnesium Hydroxide 30 ml 06/17/20 00:01 06/25/20 23:01 Milk Of Magnesia 30 Ml Oral.Susp PO 30 ml Q24H PRN Administration Constipation Multivitamins/Vitamin C 1 tab 06/17/20 09:00 07/08/20 11:02 Multivitamin Tablet PO 1 tab DAILY [facility] Administration Nicotine Polacrilex 2 mg 06/17/20 00:01 07/04/20 13:54 Nicotine Polacrilex 2 Mg Gum BUCCAL 2 mg Q2H PRN Administration Nicotine Cravings Omeprazole 20 mg 06/17/20 06:30 07/08/20 11:01 Omeprazole 20 Mg Capsule.Dr PO 20 mg DAILY@0630 [facility] Administration Oxcarbazepine 600 mg 10/01/20 08:30 07/08/20 10:00 Oxcarbazepine 300 Mg Tablet PO 600 mg BID@0830,2099 [facility] Administration Perphenazine 8 mg 06/17/20 00:01 06/29/20 11:26 Perphenazine 8 Mg Tablet PO 8 mg Q4H PRN Administration anxiety/restlessness Perphenazine 8 mg 06/17/20 09:00 07/08/20 14:09 Perphenazine 8 Mg Tablet PO 8 mg TID [facility]ANDA Administration Risperidone 3 mg 07/06/20 09:00 07/08/20 11:04 Risperidone Oral Shara 1 Mg/Ml Solution PO 3 mg BID CHANDA Administration Risperidone 50 mg 07/07/20 14:00 07/08/20 13:32 Risperidone Microspheres 50 Mg/2 Ml Syringe IM 50 mg Q14D [facility]DA Administration Trazodone HCl 200 mg 06/17/20 21:00 07/07/20 20:51 Trazodone Hcl 100 Mg Tablet PO 200 mg BEDTIME [facility]AN[facility] Administration Trazodone HCl 50 mg 06/17/20 21:00 07/04/20 22:17 Trazodone Hcl 50 Mg Tablet PO 50 mg BEDTIME MRX1 PRN Administration Insomnia Triamcinolone Acetonide 1 appl 06/17/20 08:30 07/08/20 10:57 Triamcinolone Acet 0.5 % Cream 15 Gm Tube TOPICAL 1 appl BID@829,2099 [facility] Administration Zolpidem Tartrate 5 mg 07/05/20 09:32 07/06/20 22:27 Zolpidem Tartrate 5 Mg Tablet PO 5 mg BEDTIME PRN Administration Insomnia Allergies Allergies Allergy/AdvReac Type Severity Reaction Status Date / Time haloperidol [From HALDOL] Allergy Intermediate UNKNOWN Verified 06/17/20 16:04 Assessment & Plan Assessment & Plan (1) Schizophrenia: Qualifiers: Schizophrenia type: paranoid schizophrenia Qualified Code(s): F20.0 - Paranoid schizophrenia Status: Acute Code(s): F20.9 - Schizophrenia, unspecified (2) Lack of housing: Status: Acute Code(s): Z59.0 - Homelessness Assessment and Plan: CT current medication Monitor response Greater than 50% of the session was spent on counseling and/or coordination of care Patient educated on: diagnosis, medication risk/benefits and substance abuse Informed Consent: further education needed Reason for contiued inpatient stay Substantial Risk for: inability to function and rapid decompensation
[2020-07-08] MEDS: Buprenorphine/Naloxone 4/1 mg FILM 1 FILM SUBLINGUAL (17:18)
[2020-07-08 18:00] VITALS: BP 92/51; TEMP 36.4
[2020-07-08] MEDS: Zolpidem Tartrate 5 MG TABLET PO (20:54)
[2020-07-08] MEDS: traZODone HCL 100 MG TABLET 200 MG PO (20:54)
[2020-07-08] MEDS: Calcium Carbonate 750 MG TAB.CHEW PO (22:36)
[2020-07-08] MEDS: traZODone HCL 50 MG TABLET PO (23:20)
[2020-07-09 06:27] VITALS: BP 102/54; PULSE 68; RESP 16; TEMP 36.4; O2SAT 95
[2020-07-09] MEDS: OXcarbazepine 300 MG TABLET 600 MG PO ×2 (11:28→20:28)
[2020-07-09] MEDS: Multivitamin TABLET 1 TAB PO (11:28)
[2020-07-09] MEDS: busPIRone HCl 10 MG TABLET PO ×3 (11:28→20:28)
[2020-07-09] MEDS: Benztropine Mesylate 0.5 MG TABLET PO ×2 (11:28→20:28)
[2020-07-09] MEDS: Omeprazole 20 MG CAPSULE.DR PO (11:29)
[2020-07-09] MEDS: Docusate Sodium 100 MG CAPSULE PO ×2 (11:29→20:28)
[2020-07-09] MEDS: risperiDONE Oral Sol 1 MG/ML SOLUTION 3 MG PO ×2 (11:29→20:27)
[2020-07-09] MEDS: Buprenorphine/Naloxone 8/2 mg FILM 1 FILM SUBLINGUAL (11:29)
[2020-07-09 11:39] VITALS: BP 102/54; PULSE 68
[2020-07-09] MEDS: Perphenazine 8 MG TABLET PO ×3 (11:39→20:28)
[2020-07-09] MEDS: LORazepam 1 MG TABLET PO (11:39)
[2020-07-09] MEDS: cloNIDine HCL 0.1 MG TABLET PO ×2 (11:39→20:25)
[2020-07-09 16:50] VITALS: BP 92/53; PULSE 71; TEMP 36.2
[2020-07-09] MEDS: Buprenorphine/Naloxone 4/1 mg FILM 1 FILM SUBLINGUAL (16:55)
--- NOTE | 2020-07-09 16:58 | HO.PSYCHPN ---
Subjective Subjective Reason For Visit: Unspecified Psychotic Interim History: Maurice accepted risperdal consta today. He was more focused and engaged. He was not yelling in the halls and he was far less intrusive with his peers and staff. Remains with limited insight. Recounted TBI at work when scaffolding fell on him. Needs redirection with boundaries. He often interferes in staff caring for other pts. Thinks he has to protect and advocate for other pts. He has a court hearing for commitment on 07/12/20 Mental Status Exam Mental Status Exam Patient Appearance: Appropriate (but without mask) Patient Orientation: Person, Place, Time and Situation Level of Consciousness: Awake Patient Behavior: Talkative and Cooperative Mood Description: Anxious and Labile Affect Description: Anxious Patient Cognition Impaired: No Ability to Follow Directions: Fair Speech Pattern: Appropriate and Spontaneous Speech Memory Description: Intact Diagnostics Vital Signs (24Hr): Vital Signs - 24 hr 07/08/20 18:00 07/09/20 06:27 07/09/20 11:39 Temperature 97.6 F 97.6 F Pulse Rate 68 68 Respiratory Rate 16 Blood Pressure 92/51 L 102/54 L 102/54 L Pulse Oximetry 95 Body Mass Index 30.4 Labs Results: 06/14/20 19:20 07/04/20 08:43 Medications Medications Current Medications Generic Name Dose Route Start Last Admin Trade Name Freq PRN Reason Stop Dose Admin Acetaminophen 650 mg 06/17/20 00:01 06/29/20 06:35 Acetaminophen 325 Mg Tablet PO 650 mg Q6H PRN Administration HEADACHE/PAIN.MAIN (SCALE 1-3) Al Hydroxide/Mg Hydroxide 30 ml 06/17/20 00:01 06/19/20 09:19 Magnesium Hydrox/Alum Hydrox 30 Ml Oral.Susp PO 30 ml Q6H PRN Administration HEARTBURN/NAUSEA Benztropine Mesylate 0.5 mg 06/17/20 08:30 07/09/20 11:28 Benztropine Mesylate 0.5 Mg Tablet PO 0.5 mg BID@0830,2100 [facility] Administration Buprenorphine/Naloxone 1 film 06/17/20 09:00 07/09/20 11:29 Buprenorphine/Naloxone 8/2 Mg Film SUBLINGUAL 1 film DAILY [facility]ANDA Administration Buprenorphine/Naloxone 1 film 06/29/20 17:00 07/09/20 16:55 Buprenorphine/Naloxone 4/1 Mg Film SUBLINGUAL 1 film DAILY@1700 [facility] Administration Buspirone HCl 10 mg 06/17/20 08:30 07/09/20 14:48 Buspirone Hcl 10 Mg Tablet PO 10 mg TID@0830,1330,2100 [facility] Administration Calcium Carbonate 750 mg 06/24/20 20:08 07/08/20 22:36 Calcium Carbonate 750 Mg Tab.Chew PO 750 mg Q6H PRN Administration Heartburn Clonidine HCl 0.1 mg 06/19/20 19:46 07/09/20 11:39 Clonidine Hcl 0.1 Mg Tablet PO 0.1 mg BID PRN Administration anxiety/restlessness Docusate Sodium 100 mg 06/27/20 21:00 07/09/20 11:29 Docusate Sodium 100 Mg Capsule PO 100 mg BID [facility]ANDA Administration Hydroxyzine HCl 25 mg 06/17/20 21:00 07/04/20 22:17 Hydroxyzine Hcl 25 Mg Tablet PO 25 mg BEDTIME MRX1 PRN Administration NIGHT TIME ANXIETY Ibuprofen 600 mg 06/17/20 14:02 07/07/20 19:37 Ibuprofen 600 Mg Tablet PO 600 mg Q6H PRN Administration Pain, Moderate (Pain Scale 4-6 Lorazepam 1 mg 07/05/20 22:58 07/09/20 11:39 Lorazepam 1 Mg Tablet PO 1 mg Q4H PRN Administration anxiety/restlessness Magnesium Citrate 150 ml 06/27/20 10:02 06/27/20 10:19 Magnesium Citrate 300 Ml Solution PO 150 ml DAILY PRN Administration Constipation Magnesium Hydroxide 30 ml 06/17/20 00:01 06/25/20 23:01 Milk Of Magnesia 30 Ml Oral.Susp PO 30 ml Q24H PRN Administration Constipation Multivitamins/Vitamin C 1 tab 06/17/20 09:00 07/09/20 11:28 Multivitamin Tablet PO 1 tab DAILY CHANDA Administration Nicotine Polacrilex 2 mg 06/17/20 00:01 07/04/20 13:54 Nicotine Polacrilex 2 Mg Gum BUCCAL 2 mg Q2H PRN Administration Nicotine Cravings Omeprazole 20 mg 06/17/20 06:30 07/09/20 11:29 Omeprazole 20 Mg Capsule.Dr PO 20 mg DAILY@0630 [facility] Administration Oxcarbazepine 600 mg 06/17/20 08:30 07/09/20 11:28 Oxcarbazepine 300 Mg Tablet PO 600 mg BID@08,2099 [facility] Administration Perphenazine 8 mg 06/17/20 00:01 06/29/20 11:26 Perphenazine 8 Mg Tablet PO 8 mg Q4H PRN Administration anxiety/restlessness Perphenazine 8 mg 06/17/20 09:00 07/09/20 14:49 Perphenazine 8 Mg Tablet PO 8 mg TID CHANDA Administration Risperidone 3 mg 07/06/20 09:00 07/09/20 11:29 Risperidone Oral Shara 1 Mg/Ml Solution PO 3 mg BID CHANDA Administration Risperidone 50 mg 07/07/20 14:00 07/08/20 13:32 Risperidone Microspheres 50 Mg/2 Ml Syringe IM 50 mg Q14D CHANDA Administration Trazodone HCl 200 mg 06/17/20 21:00 07/08/20 20:54 Trazodone Hcl 100 Mg Tablet PO 200 mg BEDTIME CHANDA Administration Trazodone HCl 50 mg 06/17/20 21:00 07/08/20 23:20 Trazodone Hcl 50 Mg Tablet PO 50 mg BEDTIME MRX1 PRN Administration Insomnia Triamcinolone Acetonide 1 appl 06/17/20 08:30 07/09/20 11:42 Triamcinolone Acet 0.5 % Cream 15 Gm Tube TOPICAL Not Given BID@829,2099 [facility] Zolpidem Tartrate 5 mg 07/05/20 09:32 07/08/20 20:54 Zolpidem Tartrate 5 Mg Tablet PO 5 mg BEDTIME PRN Administration Insomnia Allergies Allergies Allergy/AdvReac Type Severity Reaction Status Date / Time haloperidol [From HALDOL] Allergy Intermediate UNKNOWN Verified 06/17/20 16:04 Assessment & Plan Assessment & Plan (1) Schizophrenia: Qualifiers: Schizophrenia type: paranoid schizophrenia Qualified Code(s): F20.0 - Paranoid schizophrenia Status: Acute Code(s): F20.9 - Schizophrenia, unspecified (2) Lack of housing: Status: Acute Code(s): Z59.0 - Homelessness Assessment and Plan: CT current medication Monitor response to Consta. Switch to tabs of Risperidone Greater than 50% of the session was spent on counseling and/or coordination of care
[2020-07-09 20:25] VITALS: BP 127/60; PULSE 81
[2020-07-09] MEDS: traZODone HCL 100 MG TABLET 200 MG PO (20:27)
[2020-07-10] MEDS: risperiDONE 3 MG TABLET PO ×2 (09:08→20:18)
[2020-07-10] MEDS: Perphenazine 8 MG TABLET PO ×3 (09:08→20:20)
[2020-07-10] MEDS: Omeprazole 20 MG CAPSULE.DR PO (09:08)
[2020-07-10] MEDS: Buprenorphine/Naloxone 8/2 mg FILM 1 FILM SUBLINGUAL (09:08)
[2020-07-10] MEDS: Docusate Sodium 100 MG CAPSULE PO ×2 (09:08→20:20)
[2020-07-10] MEDS: busPIRone HCl 10 MG TABLET PO ×3 (09:08→20:20)
[2020-07-10] MEDS: Benztropine Mesylate 0.5 MG TABLET PO ×2 (09:08→20:18)
[2020-07-10] MEDS: Triamcinolone Acet 0.5 % Cream 15 GM TUBE 1 APPL TOPICAL (09:08)
[2020-07-10] MEDS: Multivitamin TABLET 1 TAB PO (09:08)
[2020-07-10] MEDS: OXcarbazepine 300 MG TABLET 600 MG PO ×2 (09:08→20:20)
[2020-07-10 09:25] VITALS: BP 121/59; PULSE 71; TEMP 36.4; O2SAT 95
[2020-07-10 14:46] VITALS: BP 119/59; PULSE 85
[2020-07-10] MEDS: cloNIDine HCL 0.1 MG TABLET PO (14:46)
[2020-07-10] MEDS: Buprenorphine/Naloxone 4/1 mg FILM 1 FILM SUBLINGUAL (16:29)
[2020-07-10] MEDS: Ibuprofen 600 MG TABLET PO (16:52)
[2020-07-10] MEDS: LORazepam 1 MG TABLET PO ×2 (17:01→21:16)
[2020-07-10 17:38] VITALS: BP 117/77; PULSE 78; TEMP 36.3; O2SAT 98
[2020-07-10 17:40] VITALS: BP 117/77; PULSE 78; TEMP 36.3; O2SAT 98
[2020-07-10] MEDS: traZODone HCL 100 MG TABLET 200 MG PO (20:19)
[2020-07-10] MEDS: hydrOXYzine HCL 25 MG TABLET PO (21:16)
--- NOTE | 2020-07-10 21:44 | P.PNPSI_ITS ---
Subjective Subjective Reason For Visit: Unspecified Psychotic Interim History: Maurice accepted risperdal consta yesterday. No side effects noted. He was more focused and, not yelling in the halls; less intrusive with his peers and staff. Remains with limited insight. He has a court hearing for commitment on 07/12/20 Review of Systems Review of Systems Yes all other systems are reviewed and are negative Mental Status Exam Mental Status Exam Patient Appearance: Appropriate (but without mask) Patient Orientation: Person, Place, Time and Situation Level of Consciousness: Awake Patient Behavior: Talkative and Cooperative Mood Description: Anxious and Labile Affect Description: Anxious Patient Cognition Impaired: No Ability to Follow Directions: Fair Speech Pattern: Appropriate and Spontaneous Speech Memory Description: Intact Diagnostics Vital Signs (24Hr): Vital Signs - 24 hr 07/10/20 09:25 07/10/20 14:46 07/10/20 17:38 Temperature 97.5 F 97.3 F Pulse Rate 71 85 78 Blood Pressure 121/59 L 119/59 L 117/77 Pulse Oximetry 95 98 07/10/20 17:40 Temperature 97.3 F Pulse Rate 78 Blood Pressure 117/77 Pulse Oximetry 98 Body Mass Index 30.4 Labs Results: 06/14/20 19:20 07/04/20 08:43 Medications Medications Current Medications Generic Name Dose Route Start Last Admin Trade Name Freq PRN Reason Stop Dose Admin Acetaminophen 650 mg 06/17/20 00:01 06/29/20 06:35 Acetaminophen 325 Mg Tablet PO 650 mg Q6H PRN Administration HEADACHE/PAIN.MAIN (SCALE 1-3) Al Hydroxide/Mg Hydroxide 30 ml 06/17/20 00:01 06/19/20 09:19 Magnesium Hydrox/Alum Hydrox 30 Ml Oral.Susp PO 30 ml Q6H PRN Administration HEARTBURN/NAUSEA Benztropine Mesylate 0.5 mg 06/17/20 08:30 07/10/20 20:18 Benztropine Mesylate 0.5 Mg Tablet PO 0.5 mg BID@0830,2100 [facility] Administration Buprenorphine/Naloxone 1 film 06/17/20 09:00 07/10/20 09:08 Buprenorphine/Naloxone 8/2 Mg Film SUBLINGUAL 1 film DAILY [facility]ANDA Administration Buprenorphine/Naloxone 1 film 06/29/20 17:00 07/10/20 16:29 Buprenorphine/Naloxone 4/1 Mg Film SUBLINGUAL 1 film DAILY@1700 [facility] Administration Buspirone HCl 10 mg 06/17/20 08:30 07/10/20 20:20 Buspirone Hcl 10 Mg Tablet PO 10 mg TID@0830,1330,2100 [facility] Administration Calcium Carbonate 750 mg 06/24/20 20:08 07/08/20 22:36 Calcium Carbonate 750 Mg Tab.Chew PO 750 mg Q6H PRN Administration Heartburn Clonidine HCl 0.1 mg 06/19/20 19:46 07/10/20 14:46 Clonidine Hcl 0.1 Mg Tablet PO 0.1 mg BID PRN Administration anxiety/restlessness Docusate Sodium 100 mg 06/27/20 21:00 07/10/20 20:20 Docusate Sodium 100 Mg Capsule PO 100 mg BID CHANDA Administration Hydroxyzine HCl 25 mg 06/17/20 21:00 07/10/20 21:16 Hydroxyzine Hcl 25 Mg Tablet PO 25 mg BEDTIME MRX1 PRN Administration NIGHT TIME ANXIETY Ibuprofen 600 mg 06/17/20 14:02 07/10/20 16:52 Ibuprofen 600 Mg Tablet PO 600 mg Q6H PRN Administration Pain, Moderate (Pain Scale 4-6 Lorazepam 1 mg 07/05/20 22:58 07/10/20 21:16 Lorazepam 1 Mg Tablet PO 1 mg Q4H PRN Administration anxiety/restlessness Magnesium Citrate 150 ml 06/27/20 10:02 06/27/20 10:19 Magnesium Citrate 300 Ml Solution PO 150 ml DAILY PRN Administration Constipation Magnesium Hydroxide 30 ml 06/17/20 00:01 06/25/20 23:01 Milk Of Magnesia 30 Ml Oral.Susp PO 30 ml Q24H PRN Administration Constipation Multivitamins/Vitamin C 1 tab 06/17/20 09:00 07/10/20 09:08 Multivitamin Tablet PO 1 tab DAILY [facility] Administration Nicotine Polacrilex 2 mg 06/17/20 00:01 07/04/20 13:54 Nicotine Polacrilex 2 Mg Gum BUCCAL 2 mg Q2H PRN Administration Nicotine Cravings Omeprazole 20 mg 06/17/20 06:30 07/10/20 09:08 Omeprazole 20 Mg Capsule.Dr PO 20 mg DAILY@0630 [facility] Administration Oxcarbazepine 600 mg 06/17/20 08:30 07/10/20 20:20 Oxcarbazepine 300 Mg Tablet PO 600 mg BID@829,2099 [facility] Administration Perphenazine 8 mg 06/17/20 00:01 06/29/20 11:26 Perphenazine 8 Mg Tablet PO 8 mg Q4H PRN Administration anxiety/restlessness Perphenazine 8 mg 06/17/20 09:00 07/10/20 20:20 Perphenazine 8 Mg Tablet PO 8 mg TID CHANDA Administration Risperidone 50 mg 07/07/20 14:00 07/08/20 13:32 Risperidone Microspheres 50 Mg/2 Ml Syringe IM 50 mg Q14D [facility]AN[facility] Administration Risperidone 3 mg 07/10/20 09:00 07/10/20 20:18 Risperidone 3 Mg Tablet PO 3 mg BID CHANDA Administration Trazodone HCl 200 mg 06/17/20 21:00 07/10/20 20:19 Trazodone Hcl 100 Mg Tablet PO 200 mg BEDTIME [facility] Administration Trazodone HCl 50 mg 06/17/20 21:00 07/08/20 23:20 Trazodone Hcl 50 Mg Tablet PO 50 mg BEDTIME MRX1 PRN Administration Insomnia Triamcinolone Acetonide 1 appl 06/17/20 08:30 07/10/20 20:24 Triamcinolone Acet 0.5 % Cream 15 Gm Tube TOPICAL Not Given BID@ [facility] Allergies Allergies Allergy/AdvReac Type Severity Reaction Status Date / Time haloperidol [From HALDOL] Allergy Intermediate UNKNOWN Verified 06/17/20 16:04 Assessment & Plan Assessment & Plan (1) Schizophrenia: Qualifiers: Schizophrenia type: paranoid schizophrenia Qualified Code(s): F20.0 - Paranoid schizophrenia Status: Acute Code(s): F20.9 - Schizophrenia, unspecified (2) Lack of housing: Status: Acute Code(s): Z59.0 - Homelessness (3) Psychosis: Qualifiers: Psychosis type: schizophrenia Status: Acute Code(s): F29 - Unspecified psychosis not due to a substance or known physiological condition Assessment and Plan: tolerating risperdal consta injection with no side effects seems to be improving with current treatment continue with treatment plan Greater than 50% of the session was spent on counseling and/or coordination of care Patient educated on: diagnosis, medication risk/benefits and substance abuse Informed Consent: further education needed Reason for contiued inpatient stay Substantial Risk for: inability to function and rapid decompensation Greater than 50% of the session was spent on counseling and/or coordination of care
[2020-07-11] MEDS: busPIRone HCl 10 MG TABLET PO ×3 (08:30→20:29)
[2020-07-11] MEDS: Perphenazine 8 MG TABLET PO ×3 (08:30→20:30)
[2020-07-11] MEDS: Multivitamin TABLET 1 TAB PO (08:30)
[2020-07-11] MEDS: Triamcinolone Acet 0.5 % Cream 15 GM TUBE 1 APPL TOPICAL (08:30)
[2020-07-11] MEDS: Docusate Sodium 100 MG CAPSULE PO ×2 (08:30→20:29)
[2020-07-11] MEDS: Buprenorphine/Naloxone 8/2 mg FILM 1 FILM SUBLINGUAL (08:30)
[2020-07-11] MEDS: risperiDONE 3 MG TABLET PO ×2 (08:30→20:29)
[2020-07-11] MEDS: Omeprazole 20 MG CAPSULE.DR PO (08:30)
[2020-07-11] MEDS: OXcarbazepine 300 MG TABLET 600 MG PO ×2 (08:30→20:29)
[2020-07-11] MEDS: Benztropine Mesylate 0.5 MG TABLET PO ×2 (08:30→20:29)
[2020-07-11 09:09] VITALS: BP 120/77; PULSE 72; TEMP 35.9; O2SAT 96
[2020-07-11] MEDS: Ibuprofen 600 MG TABLET PO ×2 (10:25→21:25)
--- NOTE | 2020-07-11 10:58 | HO.PSYCHPN ---
Subjective Subjective Reason For Visit: Unspecified Psychotic Interim History: Maurice tolerated risperdal consta well. No side effects noted. He present less intrusive, less agitated was more focused and, not yelling in the halls; less intrusive with his peers and staff. Remains with limited insight. He has a court hearing for commitment on 07/12/20 Diagnostics Vital Signs (24Hr): Vital Signs - 24 hr 07/10/20 14:46 07/10/20 17:38 07/10/20 17:40 Temperature 97.3 F 97.3 F Pulse Rate 85 78 78 Blood Pressure 119/59 L 117/77 117/77 Pulse Oximetry 98 98 07/11/20 09:09 Temperature 96.7 F L Pulse Rate 72 Blood Pressure 120/77 Pulse Oximetry 96 Body Mass Index 30.4 Labs Results: 06/14/20 19:20 07/04/20 08:43 Medications Medications Current Medications Generic Name Dose Route Start Last Admin Trade Name Freq PRN Reason Stop Dose Admin Acetaminophen 650 mg 06/17/20 00:01 06/29/20 06:35 Acetaminophen 325 Mg Tablet PO 650 mg Q6H PRN Administration HEADACHE/PAIN.MAIN (SCALE 1-3) Al Hydroxide/Mg Hydroxide 30 ml 06/17/20 00:01 06/19/20 09:19 Magnesium Hydrox/Alum Hydrox 30 Ml Oral.Susp PO 30 ml Q6H PRN Administration HEARTBURN/NAUSEA Benztropine Mesylate 0.5 mg 06/17/20 08:30 07/11/20 08:30 Benztropine Mesylate 0.5 Mg Tablet PO 0.5 mg BID@0830,2100 [facility] Administration Buprenorphine/Naloxone 1 film 06/17/20 09:00 07/11/20 08:30 Buprenorphine/Naloxone 8/2 Mg Film SUBLINGUAL 1 film DAILY [facility] Administration Buprenorphine/Naloxone 1 film 06/29/20 17:00 07/10/20 16:29 Buprenorphine/Naloxone 4/1 Mg Film SUBLINGUAL 1 film DAILY@1700 [facility] Administration Buspirone HCl 10 mg 06/17/20 08:30 07/11/20 08:30 Buspirone Hcl 10 Mg Tablet PO 10 mg TID@0830,1330,2100 [facility] Administration Calcium Carbonate 750 mg 06/24/20 20:08 07/08/20 22:36 Calcium Carbonate 750 Mg Tab.Chew PO 750 mg Q6H PRN Administration Heartburn Clonidine HCl 0.1 mg 06/19/20 19:46 07/10/20 14:46 Clonidine Hcl 0.1 Mg Tablet PO 0.1 mg BID PRN Administration anxiety/restlessness Docusate Sodium 100 mg 06/27/20 21:00 07/11/20 08:30 Docusate Sodium 100 Mg Capsule PO 100 mg BID [facility] Administration Hydroxyzine HCl 25 mg 06/17/20 21:00 07/10/20 21:16 Hydroxyzine Hcl 25 Mg Tablet PO 25 mg BEDTIME MRX1 PRN Administration NIGHT TIME ANXIETY Ibuprofen 600 mg 06/17/20 14:02 07/10/20 16:52 Ibuprofen 600 Mg Tablet PO 600 mg Q6H PRN Administration Pain, Moderate (Pain Scale 4-6 Lorazepam 1 mg 07/10/20 23:05 Lorazepam 1 Mg Tablet PO Q4H PRN anxiety/restlessness Magnesium Citrate 150 ml 06/27/20 10:02 06/27/20 10:19 Magnesium Citrate 300 Ml Solution PO 150 ml DAILY PRN Administration Constipation Magnesium Hydroxide 30 ml 06/17/20 00:01 06/25/20 23:01 Milk Of Magnesia 30 Ml Oral.Susp PO 30 ml Q24H PRN Administration Constipation Multivitamins/Vitamin C 1 tab 06/17/20 09:00 07/11/20 08:30 Multivitamin Tablet PO 1 tab DAILY [facility] Administration Nicotine Polacrilex 2 mg 06/17/20 00:01 07/04/20 13:54 Nicotine Polacrilex 2 Mg Gum BUCCAL 2 mg Q2H PRN Administration Nicotine Cravings Omeprazole 20 mg 06/17/20 06:30 07/11/20 08:30 Omeprazole 20 Mg Capsule.Dr PO 20 mg DAILY@0630 [facility] Administration Oxcarbazepine 600 mg 06/17/20 08:30 07/11/20 08:30 Oxcarbazepine 300 Mg Tablet PO 600 mg BID@0830,2100 [facility] Administration Perphenazine 8 mg 06/17/20 00:01 06/29/20 11:26 Perphenazine 8 Mg Tablet PO 8 mg Q4H PRN Administration anxiety/restlessness Perphenazine 8 mg 06/17/20 09:00 07/11/20 08:30 Perphenazine 8 Mg Tablet PO 8 mg TID [facility] Administration Risperidone 50 mg 07/07/20 14:00 07/08/20 13:32 Risperidone Microspheres 50 Mg/2 Ml Syringe IM 50 mg Q14D [facility] Administration Risperidone 3 mg 07/10/20 09:00 07/11/20 08:30 Risperidone 3 Mg Tablet PO 3 mg BID [facility] Administration Trazodone HCl 200 mg 06/17/20 21:00 07/10/20 20:19 Trazodone Hcl 100 Mg Tablet PO 200 mg BEDTIME [facility] Administration Trazodone HCl 50 mg 06/17/20 21:00 07/08/20 23:20 Trazodone Hcl 50 Mg Tablet PO 50 mg BEDTIME MRX1 PRN Administration Insomnia Triamcinolone Acetonide 1 appl 06/17/20 08:30 07/11/20 08:30 Triamcinolone Acet 0.5 % Cream 15 Gm Tube TOPICAL 1 appl BID@0830,2100 [facility] Administration Allergies Allergies Allergy/AdvReac Type Severity Reaction Status Date / Time haloperidol [From HALDOL] Allergy Intermediate UNKNOWN Verified 06/17/20 16:04 Assessment & Plan Greater than 50% of the session was spent on counseling and/or coordination of care
[2020-07-11] MEDS: LORazepam 1 MG TABLET PO ×2 (12:40→21:25)
[2020-07-11 15:26] VITALS: BP 120/64; PULSE 82
[2020-07-11 15:52] VITALS: BP 131/63; PULSE 85
[2020-07-11] MEDS: cloNIDine HCL 0.1 MG TABLET PO (15:52)
[2020-07-11] MEDS: Acetaminophen 325 MG TABLET 650 MG PO (15:53)
[2020-07-11 15:56] VITALS: BP 131/63; PULSE 85; TEMP 36.6; O2SAT 97
[2020-07-11] MEDS: Buprenorphine/Naloxone 4/1 mg FILM 1 FILM SUBLINGUAL (16:21)
[2020-07-11] MEDS: traZODone HCL 100 MG TABLET 200 MG PO (20:30)
[2020-07-11 21:40] VITALS: BP 130/72; PULSE 80
--- NOTE | 2020-07-12 07:54 | HO.PSYCHPN ---
Subjective Subjective Reason For Visit: Unspecified Psychotic Interim History: Maurice tolerated risperdal consta well. No side effects noted. He present less intrusive, less agitated was more focused and, not yelling in the halls; less intrusive with his peers and staff. Remains with limited insight. He had a court hearing for commitment. Decision continued till more exhibits submitted Mental Status Exam Mental Status Exam Narrative: not wearing mask wearing socks on his hands somewhat bizarre Patient Appearance: Appropriate (but without mask) Patient Orientation: Person, Place, Time and Situation Level of Consciousness: Awake Patient Behavior: Talkative and Cooperative Mood Description: Anxious and Labile Affect Description: Anxious Patient Cognition Impaired: No Ability to Follow Directions: Fair Speech Pattern: Appropriate and Spontaneous Speech Memory Description: Intact Diagnostics Vital Signs (24Hr): Vital Signs - 24 hr 07/11/20 09:09 07/11/20 15:26 07/11/20 15:52 Temperature 96.7 F L Pulse Rate 72 82 85 Blood Pressure 120/77 120/64 131/63 Pulse Oximetry 96 07/11/20 15:56 07/11/20 21:40 Temperature 97.8 F Pulse Rate 85 80 Blood Pressure 131/63 130/72 Pulse Oximetry 97 Body Mass Index 30.4 Labs Results: 07/12/20 08:16 07/12/20 08:16 Medications Medications Current Medications Generic Name Dose Route Start Last Admin Trade Name Freq PRN Reason Stop Dose Admin Acetaminophen 650 mg 06/17/20 00:01 07/11/20 15:53 Acetaminophen 325 Mg Tablet PO 650 mg Q6H PRN Administration HEADACHE/PAIN.MAIN (SCALE 1-3) Al Hydroxide/Mg Hydroxide 30 ml 06/17/20 00:01 06/19/20 09:19 Magnesium Hydrox/Alum Hydrox 30 Ml Oral.Susp PO 30 ml Q6H PRN Administration HEARTBURN/NAUSEA Benztropine Mesylate 0.5 mg 06/17/20 08:30 07/11/20 20:29 Benztropine Mesylate 0.5 Mg Tablet PO 0.5 mg BID@0830,2100 CHANDA Administration Buprenorphine/Naloxone 1 film 06/17/20 09:00 07/11/20 08:30 Buprenorphine/Naloxone 8/2 Mg Film SUBLINGUAL 1 film DAILY CHANDA Administration Buprenorphine/Naloxone 1 film 06/29/20 17:00 07/11/20 16:21 Buprenorphine/Naloxone 4/1 Mg Film SUBLINGUAL 1 film DAILY@1700 CHANDA Administration Buspirone HCl 10 mg 06/17/20 08:30 07/11/20 20:29 Buspirone Hcl 10 Mg Tablet PO 10 mg TID@0830,1330,2100 CHANDA Administration Calcium Carbonate 750 mg 06/24/20 20:08 07/08/20 22:36 Calcium Carbonate 750 Mg Tab.Chew PO 750 mg Q6H PRN Administration Heartburn Clonidine HCl 0.1 mg 06/19/20 19:46 07/11/20 15:52 Clonidine Hcl 0.1 Mg Tablet PO 0.1 mg BID PRN Administration anxiety/restlessness Docusate Sodium 100 mg 06/27/20 21:00 07/11/20 20:29 Docusate Sodium 100 Mg Capsule PO 100 mg BID CHANDA Administration Hydroxyzine HCl 25 mg 06/17/20 21:00 07/10/20 21:16 Hydroxyzine Hcl 25 Mg Tablet PO 25 mg BEDTIME MRX1 PRN Administration NIGHT TIME ANXIETY Ibuprofen 600 mg 06/17/20 14:02 07/11/20 21:25 Ibuprofen 600 Mg Tablet PO 600 mg Q6H PRN Administration Pain, Moderate (Pain Scale 4-6 Lorazepam 1 mg 07/10/20 23:05 07/11/20 21:25 Lorazepam 1 Mg Tablet PO 1 mg Q4H PRN Administration anxiety/restlessness Magnesium Citrate 150 ml 06/27/20 10:02 06/27/20 10:19 Magnesium Citrate 300 Ml Solution PO 150 ml DAILY PRN Administration Constipation Magnesium Hydroxide 30 ml 06/17/20 00:01 06/25/20 23:01 Milk Of Magnesia 30 Ml Oral.Susp PO 30 ml Q24H PRN Administration Constipation Multivitamins/Vitamin C 1 tab 06/17/20 09:00 07/11/20 08:30 Multivitamin Tablet PO 1 tab DAILY CHANDA Administration Nicotine Polacrilex 2 mg 06/17/20 00:01 07/04/20 13:54 Nicotine Polacrilex 2 Mg Gum BUCCAL 2 mg Q2H PRN Administration Nicotine Cravings Omeprazole 20 mg 06/17/20 06:30 07/11/20 08:30 Omeprazole 20 Mg Capsule.Dr PO 20 mg DAILY@0630 [facility] Administration Oxcarbazepine 600 mg 06/17/20 08:30 07/11/20 20:29 Oxcarbazepine 300 Mg Tablet PO 600 mg BID@829,2099 CHANDA Administration Perphenazine 8 mg 06/17/20 00:01 06/29/20 11:26 Perphenazine 8 Mg Tablet PO 8 mg Q4H PRN Administration anxiety/restlessness Perphenazine 8 mg 06/17/20 09:00 07/11/20 20:30 Perphenazine 8 Mg Tablet PO 8 mg TID CHANDA Administration Risperidone 50 mg 07/07/20 14:00 07/08/20 13:32 Risperidone Microspheres 50 Mg/2 Ml Syringe IM 50 mg Q14D CHANDA Administration Risperidone 3 mg 07/10/20 09:00 07/11/20 20:29 Risperidone 3 Mg Tablet PO 3 mg BID CHANDA Administration Trazodone HCl 200 mg 06/17/20 21:00 07/11/20 20:30 Trazodone Hcl 100 Mg Tablet PO 200 mg BEDTIME CHANDA Administration Trazodone HCl 50 mg 06/17/20 21:00 07/08/20 23:20 Trazodone Hcl 50 Mg Tablet PO 50 mg BEDTIME MRX1 PRN Administration Insomnia Triamcinolone Acetonide 1 appl 06/17/20 08:30 07/11/20 20:36 Triamcinolone Acet 0.5 % Cream 15 Gm Tube TOPICAL Not Given BID@829,2099 [facility] Allergies Allergies Allergy/AdvReac Type Severity Reaction Status Date / Time haloperidol [From HALDOL] Allergy Intermediate UNKNOWN Verified 06/17/20 16:04 Assessment & Plan Assessment & Plan (1) Schizophrenia: Qualifiers: Schizophrenia type: paranoid schizophrenia Qualified Code(s): F20.0 - Paranoid schizophrenia Status: Acute Code(s): F20.9 - Schizophrenia, unspecified (2) Lack of housing: Status: Acute Code(s): Z59.0 - Homelessness (3) Psychosis: Qualifiers: Psychosis type: schizophrenia Status: Acute Code(s): F29 - Unspecified psychosis not due to a substance or known physiological condition Assessment and Plan: tolerating risperdal consta injection with no side effects seems to be improving with current treatment continue with treatment plan Greater than 50% of the session was spent on counseling and/or coordination of care Patient educated on: diagnosis, medication risk/benefits and substance abuse Informed Consent: further education needed Reason for contiued inpatient stay Substantial Risk for: inability to function and rapid decompensation Greater than 50% of the session was spent on counseling and/or coordination of care
[2020-07-12 08:51] LABS: MANUAL DIFF FLAG NO
[2020-07-12] MEDS: Buprenorphine/Naloxone 8/2 mg FILM 1 FILM SUBLINGUAL (08:56)
[2020-07-12] MEDS: Multivitamin TABLET 1 TAB PO (08:57)
[2020-07-12] MEDS: busPIRone HCl 10 MG TABLET PO ×3 (08:57→22:27)
[2020-07-12] MEDS: OXcarbazepine 300 MG TABLET 600 MG PO ×2 (08:57→22:25)
[2020-07-12] MEDS: Omeprazole 20 MG CAPSULE.DR PO (08:57)
[2020-07-12] MEDS: Perphenazine 8 MG TABLET PO ×3 (08:57→22:27)
[2020-07-12] MEDS: risperiDONE 3 MG TABLET PO ×2 (08:57→22:25)
[2020-07-12] MEDS: Benztropine Mesylate 0.5 MG TABLET PO ×2 (08:58→22:27)
[2020-07-12] MEDS: Docusate Sodium 100 MG CAPSULE PO ×2 (08:58→22:27)
[2020-07-12] MEDS: Triamcinolone Acet 0.5 % Cream 15 GM TUBE 1 APPL TOPICAL ×2 (08:58→22:35)
[2020-07-12 09:00] VITALS: BP 117/93; PULSE 65; TEMP 36.6
[2020-07-12 09:00] LABS: Basophils Percent Auto 0.4 % (0-2); Eosinophils Absolute Auto 0.5 X10*3/uL (0.0-0.4); Eosinophils Percent Auto 5.4 % (0-4); Hematocrit 43.2 % (42-52); Hemoglobin 14.4 g/dl (14.0-18.0); Imm Gran Abs Auto 0.04 X10*3/uL (0.00-0.03); Imm Gran Pct Auto 0.4 % (0.0-0.4); Lymphocytes Absolute Auto 3.7 X10*3/uL (1.2-4.9); Lymphocytes Percent Auto 38.8 % (20-40); Mean Corpuscular HGB Conc 33.3 g/dl (31.0-36.0); Mean Corpuscular Hemoglobin 31.3 pg (27.0-33.0); Mean Corpuscular Volume 93.9 fL (80-98); Mean Platelet Volume 9.1 fL (9.4-12.4); Monocytes Absolute Auto 0.9 X10*3/uL (0.1-1.2); Monocytes Percent Auto 9.4 % (2-11); Neutrophils Absolute Auto 4.3 X10*3/uL (2.0-8.3); Neutrophils Percent Auto 45.6 % (45-73); Platelet Count 200 X10*3/uL (160-400); Red Cell Distribution Width 13.5 % (11.0-16.0); White Blood Count 9.5 X10*3/uL (4.8-10.8)
[2020-07-12 09:56] LABS: Alanine Aminotransferase 30 U/L (0-40); Albumin Level 3.4 g/dL (3.5-5.0); Alkaline Phosphatase 39 U/L (39-117); Anion Gap 12 (12-20); Aspartate Amino Transferase 27 U/L (5-37); Bilirubin Direct 0.2 mg/dL (0.0-0.5); Bilirubin Total 0.4 mg/dL (0.0-1.0); Carbon Dioxide 28 mmol/L (22-29); Chloride 100 mmol/L (96-108); Potassium 4.5 mmol/l (3.3-5.1); Sodium 135 mmol/L (135-145); Total Protein 5.9 g/dL (6.5-8.0)
[2020-07-12] MEDS: LORazepam 1 MG TABLET PO (17:28)
[2020-07-12] MEDS: Buprenorphine/Naloxone 4/1 mg FILM 1 FILM SUBLINGUAL (17:35)
[2020-07-12 17:37] VITALS: BP 129/67; PULSE 83; TEMP 36.3
[2020-07-12] MEDS: traZODone HCL 100 MG TABLET 200 MG PO (22:27)
--- NOTE | 2020-07-13 05:02 | P.PNPSI_ITS ---
Subjective Subjective Reason For Visit: Unspecified Psychotic Interim History: Maurice tolerated risperdal consta well. No side effects noted. He present less intrusive, less agitated was more focused and, not yelling in the halls; less intrusive with his peers and staff. Remains with limited insight. He had a court hearing for commitment. Decision continued till more exhibits submitted Mental Status Exam Mental Status Exam Narrative: not wearing mask wearing socks on his hands somewhat bizarre Patient Appearance: Appropriate (but without mask) Patient Orientation: Person, Place, Time and Situation Level of Consciousness: Awake Patient Behavior: Talkative and Cooperative Mood Description: Anxious and Labile Affect Description: Anxious Patient Cognition Impaired: No Ability to Follow Directions: Fair Speech Pattern: Appropriate and Spontaneous Speech Memory Description: Intact Diagnostics Vital Signs (24Hr): Vital Signs - 24 hr 07/12/20 09:00 07/12/20 17:37 Temperature 97.8 F 97.4 F Pulse Rate 65 83 Blood Pressure 117/93 H 129/67 Body Mass Index 30.4 Labs Results: 07/12/20 08:16 07/12/20 08:16 Labs: Laboratory Results - last 48 hr 07/12/20 07/12/20 08:16 08:16 WBC 9.5 RBC 4.60 Hgb 14.4 Hct 43.2 MCV 93.9 MCH 31.3 MCHC 33.3 RDW 13.5 Plt Count 200 MPV 9.1 L Immature Gran % (Auto) 0.4 Neut % (Auto) 45.6 Lymph % (Auto) 38.8 [place] % (Auto) 9.4 Eos % (Auto) 5.4 H Baso % (Auto) 0.4 Lymph # (Auto) 3.7 [place] # (Auto) 0.9 Eos # (Auto) 0.5 H Baso # (Auto) 0.0 Abs Immat Gran (auto) 0.04 H Absolute Neuts (auto) 4.3 Absolute Nucleated RBC 0.000 Nucleated RBC % (auto) 0.0 Sodium 135 Potassium 4.5 Chloride 100 Carbon Dioxide 28 Anion Gap 12 Total Bilirubin 0.4 Direct Bilirubin 0.2 AST 27 ALT 30 Alkaline Phosphatase 39 D Total Protein 5.9 L Albumin 3.4 L Medications Medications Current Medications Generic Name Dose Route Start Last Admin Trade Name Freq PRN Reason Stop Dose Admin Acetaminophen 650 mg 06/17/20 00:01 07/11/20 15:53 Acetaminophen 325 Mg Tablet PO 650 mg Q6H PRN Administration HEADACHE/PAIN.MAIN (SCALE 1-3) Al Hydroxide/Mg Hydroxide 30 ml 06/17/20 00:01 06/19/20 09:19 Magnesium Hydrox/Alum Hydrox 30 Ml Oral.Susp PO 30 ml Q6H PRN Administration HEARTBURN/NAUSEA Benztropine Mesylate 0.5 mg 06/17/20 08:30 07/12/20 22:27 Benztropine Mesylate 0.5 Mg Tablet PO 0.5 mg BID@0830,2100 CHANDA Administration Buprenorphine/Naloxone 1 film 06/17/20 09:00 07/12/20 08:56 Buprenorphine/Naloxone 8/2 Mg Film SUBLINGUAL 1 film DAILY CHANDA Administration Buprenorphine/Naloxone 1 film 06/29/20 17:00 07/12/20 17:35 Buprenorphine/Naloxone 4/1 Mg Film SUBLINGUAL 1 film DAILY@1700 CHANDA Administration Buspirone HCl 10 mg 06/17/20 08:30 07/12/20 22:27 Buspirone Hcl 10 Mg Tablet PO 10 mg TID@0830,1330,2100 CHANDA Administration Calcium Carbonate 750 mg 06/24/20 20:08 07/08/20 22:36 Calcium Carbonate 750 Mg Tab.Chew PO 750 mg Q6H PRN Administration Heartburn Clonidine HCl 0.1 mg 06/19/20 19:46 07/11/20 15:52 Clonidine Hcl 0.1 Mg Tablet PO 0.1 mg BID PRN Administration anxiety/restlessness Docusate Sodium 100 mg 06/27/20 21:00 07/12/20 22:27 Docusate Sodium 100 Mg Capsule PO 100 mg BID CHANDA Administration Hydroxyzine HCl 25 mg 06/17/20 21:00 07/10/20 21:16 Hydroxyzine Hcl 25 Mg Tablet PO 25 mg BEDTIME MRX1 PRN Administration NIGHT TIME ANXIETY Ibuprofen 600 mg 06/17/20 14:02 07/11/20 21:25 Ibuprofen 600 Mg Tablet PO 600 mg Q6H PRN Administration Pain, Moderate (Pain Scale 4-6 Lorazepam 1 mg 07/10/20 23:05 07/12/20 17:28 Lorazepam 1 Mg Tablet PO 1 mg Q4H PRN Administration anxiety/restlessness Magnesium Citrate 150 ml 06/27/20 10:02 06/27/20 10:19 Magnesium Citrate 300 Ml Solution PO 150 ml DAILY PRN Administration Constipation Magnesium Hydroxide 30 ml 06/17/20 00:01 06/25/20 23:01 Milk Of Magnesia 30 Ml Oral.Susp PO 30 ml Q24H PRN Administration Constipation Multivitamins/Vitamin C 1 tab 06/17/20 09:00 07/12/20 08:57 Multivitamin Tablet PO 1 tab DAILY CHANDA Administration Nicotine Polacrilex 2 mg 06/17/20 00:01 07/04/20 13:54 Nicotine Polacrilex 2 Mg Gum BUCCAL 2 mg Q2H PRN Administration Nicotine Cravings Omeprazole 20 mg 06/17/20 06:30 07/12/20 08:57 Omeprazole 20 Mg Capsule.Dr PO 20 mg DAILY@0630 CHANDA Administration Oxcarbazepine 600 mg 06/17/20 08:30 07/12/20 22:25 Oxcarbazepine 300 Mg Tablet PO 600 mg BID@0830,2100 CHANDA Administration Perphenazine 8 mg 06/17/20 00:01 06/29/20 11:26 Perphenazine 8 Mg Tablet PO 8 mg Q4H PRN Administration anxiety/restlessness Perphenazine 8 mg 06/17/20 09:00 07/12/20 22:27 Perphenazine 8 Mg Tablet PO 8 mg TID CHANDA Administration Risperidone 50 mg 07/07/20 14:00 07/08/20 13:32 Risperidone Microspheres 50 Mg/2 Ml Syringe IM 50 mg Q14D CHANDA Administration Risperidone 3 mg 07/10/20 09:00 07/12/20 22:25 Risperidone 3 Mg Tablet PO 3 mg BID CHANDA Administration Trazodone HCl 200 mg 06/17/20 21:00 07/12/20 22:27 Trazodone Hcl 100 Mg Tablet PO 200 mg BEDTIME CHANDA Administration Trazodone HCl 50 mg 06/17/20 21:00 07/08/20 23:20 Trazodone Hcl 50 Mg Tablet PO 50 mg BEDTIME MRX1 PRN Administration Insomnia Triamcinolone Acetonide 1 appl 06/17/20 08:30 07/12/20 22:35 Triamcinolone Acet 0.5 % Cream 15 Gm Tube TOPICAL 1 appl BID@0830,2100 CHANDA Administration Allergies Allergies Allergy/AdvReac Type Severity Reaction Status Date / Time haloperidol [From HALDOL] Allergy Intermediate UNKNOWN Verified 06/17/20 16:04 Assessment & Plan Assessment & Plan (1) Schizophrenia: Qualifiers: Schizophrenia type: paranoid schizophrenia Qualified Code(s): F20.0 - Paranoid schizophrenia Status: Acute Code(s): F20.9 - Schizophrenia, unspecified (2) Lack of housing: Status: Acute Code(s): Z59.0 - Homelessness (3) Psychosis: Qualifiers: Psychosis type: schizophrenia Status: Acute Code(s): F29 - Unspecified psychosis not due to a substance or known physiological condition Assessment and Plan: tolerating risperdal consta injection with no side effects seems to be improving with current treatment continue with treatment plan Greater than 50% of the session was spent on counseling and/or coordination of care Patient educated on: diagnosis, medication risk/benefits and substance abuse Informed Consent: further education needed Reason for contiued inpatient stay Substantial Risk for: inability to function and rapid decompensation Greater than 50% of the session was spent on counseling and/or coordination of care
[2020-07-13 06:32] VITALS: BP 119/56; PULSE 78; RESP 16; TEMP 36.4; O2SAT 94
[2020-07-13] MEDS: risperiDONE 3 MG TABLET PO ×2 (09:06→20:06)
[2020-07-13] MEDS: Omeprazole 20 MG CAPSULE.DR PO (09:06)
[2020-07-13] MEDS: Perphenazine 8 MG TABLET PO ×3 (09:06→20:05)
[2020-07-13] MEDS: busPIRone HCl 10 MG TABLET PO ×3 (09:06→20:05)
[2020-07-13] MEDS: Benztropine Mesylate 0.5 MG TABLET PO ×2 (09:06→20:03)
[2020-07-13] MEDS: Multivitamin TABLET 1 TAB PO (09:06)
[2020-07-13] MEDS: Triamcinolone Acet 0.5 % Cream 15 GM TUBE 1 APPL TOPICAL (09:07)
[2020-07-13] MEDS: OXcarbazepine 300 MG TABLET 600 MG PO ×2 (09:07→20:04)
[2020-07-13] MEDS: Buprenorphine/Naloxone 8/2 mg FILM 1 FILM SUBLINGUAL (09:07)
[2020-07-13] MEDS: Docusate Sodium 100 MG CAPSULE PO ×2 (09:07→20:04)
[2020-07-13 13:43] VITALS: BP 112/82; PULSE 96
[2020-07-13] MEDS: cloNIDine HCL 0.1 MG TABLET PO (13:43)
[2020-07-13] MEDS: LORazepam 1 MG TABLET PO ×2 (15:02→19:45)
[2020-07-13] MEDS: Buprenorphine/Naloxone 4/1 mg FILM 1 FILM SUBLINGUAL (17:16)
[2020-07-13] MEDS: Ibuprofen 600 MG TABLET PO (17:16)
[2020-07-13] MEDS: traZODone HCL 100 MG TABLET 200 MG PO (20:05)
[2020-07-13 22:00] VITALS: BP 108/76; PULSE 85; TEMP 36.4
[2020-07-14] MEDS: Omeprazole 20 MG CAPSULE.DR PO (06:52)
[2020-07-14] MEDS: Multivitamin TABLET 1 TAB PO (08:50)
[2020-07-14] MEDS: Perphenazine 8 MG TABLET PO ×2 (08:50→20:04)
[2020-07-14] MEDS: risperiDONE 3 MG TABLET PO (08:50)
[2020-07-14] MEDS: Benztropine Mesylate 0.5 MG TABLET PO ×2 (08:50→20:04)
[2020-07-14] MEDS: busPIRone HCl 10 MG TABLET PO (08:50)
[2020-07-14] MEDS: OXcarbazepine 300 MG TABLET 600 MG PO ×2 (08:50→20:04)
[2020-07-14] MEDS: Docusate Sodium 100 MG CAPSULE PO ×2 (08:51→20:05)
--- NOTE | 2020-07-14 08:59 | P.PNPSI_ITS ---
Subjective Subjective Reason For Visit: Unspecified Psychotic Interim History: We agreed to decrease PO Risp and DC Buspar. Maurice acknowledges he is feeling better. Encouraged to improve ADLs Maurice tolerated risperdal consta well. No side effects noted. He present less intrusive, less agitated was more focused and, not yelling in the halls; less intrusive with his peers and staff. Remains with limited insight. He had a court hearing for commitment. Decision continued till more exhibits submitted Mental Status Exam Mental Status Exam Patient Orientation: Person, Place, Time and Situation Level of Consciousness: Awake Patient Behavior: Appropriate and Cooperative Mood Description: Withdrawn Affect Description: Calm Patient Cognition Impaired: No Ability to Follow Directions: Fair Speech Pattern: Appropriate and Spontaneous Speech Memory Description: Intact Delusions: Paranoid Ideation Abnormal Motor Activity Signs and Symptoms: Aggression Judgement: Fair (improving) Diagnostics Vital Signs (24Hr): Vital Signs - 24 hr 07/13/20 13:43 07/13/20 22:00 Temperature 97.5 F Pulse Rate 96 85 Blood Pressure 112/82 108/76 Body Mass Index 30.4 Labs Results: 07/12/20 08:16 07/12/20 08:16 Labs: Laboratory Results - last 48 hr 07/12/20 07/12/20 08:16 08:16 WBC 9.5 RBC 4.60 Hgb 14.4 Hct 43.2 MCV 93.9 MCH 31.3 MCHC 33.3 RDW 13.5 Plt Count 200 MPV 9.1 L Immature Gran % (Auto) 0.4 Neut % (Auto) 45.6 Lymph % (Auto) 38.8 [place] % (Auto) 9.4 Eos % (Auto) 5.4 H Baso % (Auto) 0.4 Lymph # (Auto) 3.7 [place] # (Auto) 0.9 Eos # (Auto) 0.5 H Baso # (Auto) 0.0 Abs Immat Gran (auto) 0.04 H Absolute Neuts (auto) 4.3 Absolute Nucleated RBC 0.000 Nucleated RBC % (auto) 0.0 Sodium 135 Potassium 4.5 Chloride 100 Carbon Dioxide 28 Anion Gap 12 Total Bilirubin 0.4 Direct Bilirubin 0.2 AST 27 ALT 30 Alkaline Phosphatase 39 D Total Protein 5.9 L Albumin 3.4 L Medications Medications Current Medications Generic Name Dose Route Start Last Admin Trade Name Freq PRN Reason Stop Dose Admin Acetaminophen 650 mg 06/17/20 00:01 07/11/20 15:53 Acetaminophen 325 Mg Tablet PO 650 mg Q6H PRN Administration HEADACHE/PAIN.MAIN (SCALE 1-3) Al Hydroxide/Mg Hydroxide 30 ml 06/17/20 00:01 06/19/20 09:19 Magnesium Hydrox/Alum Hydrox 30 Ml Oral.Susp PO 30 ml Q6H PRN Administration HEARTBURN/NAUSEA Benztropine Mesylate 0.5 mg 06/17/20 08:30 07/14/20 08:50 Benztropine Mesylate 0.5 Mg Tablet PO 0.5 mg BID@0830,2100 CHANDA Administration Buprenorphine/Naloxone 1 film 06/17/20 09:00 07/13/20 09:07 Buprenorphine/Naloxone 8/2 Mg Film SUBLINGUAL 1 film DAILY CHANDA Administration Buprenorphine/Naloxone 1 film 06/29/20 17:00 07/13/20 17:16 Buprenorphine/Naloxone 4/1 Mg Film SUBLINGUAL 1 film DAILY@1700 CHANDA Administration Buspirone HCl 10 mg 06/17/20 08:30 07/14/20 08:50 Buspirone Hcl 10 Mg Tablet PO 10 mg TID@0830,1330,2100 CHANDA Administration Calcium Carbonate 750 mg 06/24/20 20:08 07/08/20 22:36 Calcium Carbonate 750 Mg Tab.Chew PO 750 mg Q6H PRN Administration Heartburn Clonidine HCl 0.1 mg 06/19/20 19:46 07/13/20 13:43 Clonidine Hcl 0.1 Mg Tablet PO 0.1 mg BID PRN Administration anxiety/restlessness Docusate Sodium 100 mg 06/27/20 21:00 07/14/20 08:51 Docusate Sodium 100 Mg Capsule PO 100 mg BID CHANDA Administration Hydroxyzine HCl 25 mg 06/17/20 21:00 07/10/20 21:16 Hydroxyzine Hcl 25 Mg Tablet PO 25 mg BEDTIME MRX1 PRN Administration NIGHT TIME ANXIETY Ibuprofen 600 mg 06/17/20 14:02 07/13/20 17:16 Ibuprofen 600 Mg Tablet PO 600 mg Q6H PRN Administration Pain, Moderate (Pain Scale 4-6 Lorazepam 1 mg 07/10/20 23:05 07/13/20 19:45 Lorazepam 1 Mg Tablet PO 1 mg Q4H PRN Administration anxiety/restlessness Magnesium Citrate 150 ml 06/27/20 10:02 06/27/20 10:19 Magnesium Citrate 300 Ml Solution PO 150 ml DAILY PRN Administration Constipation Magnesium Hydroxide 30 ml 06/17/20 00:01 06/25/20 23:01 Milk Of Magnesia 30 Ml Oral.Susp PO 30 ml Q24H PRN Administration Constipation Multivitamins/Vitamin C 1 tab 06/17/20 09:00 07/14/20 08:50 Multivitamin Tablet PO 1 tab DAILY CHANDA Administration Nicotine Polacrilex 2 mg 06/17/20 00:01 07/04/20 13:54 Nicotine Polacrilex 2 Mg Gum BUCCAL 2 mg Q2H PRN Administration Nicotine Cravings Omeprazole 20 mg 06/17/20 06:30 07/14/20 06:52 Omeprazole 20 Mg Capsule. PO 20 mg DAILY@0630 [facility]ANDA Administration Oxcarbazepine 600 mg 06/17/20 08:30 07/14/20 08:50 Oxcarbazepine 300 Mg Tablet PO 600 mg BID@0830,2100 CHANDA Administration Perphenazine 8 mg 06/17/20 00:01 06/29/20 11:26 Perphenazine 8 Mg Tablet PO 8 mg Q4H PRN Administration anxiety/restlessness Perphenazine 8 mg 06/17/20 09:00 07/14/20 08:50 Perphenazine 8 Mg Tablet PO 8 mg TID CHANDA Administration Risperidone 50 mg 07/07/20 14:00 07/08/20 13:32 Risperidone Microspheres 50 Mg/2 Ml Syringe IM 50 mg Q14D CHANDA Administration Risperidone 3 mg 07/10/20 09:00 07/14/20 08:50 Risperidone 3 Mg Tablet PO 3 mg BID CHANDA Administration Trazodone HCl 200 mg 06/17/20 21:00 07/13/20 20:05 Trazodone Hcl 100 Mg Tablet PO 200 mg BEDTIME CHANDA Administration Trazodone HCl 50 mg 06/17/20 21:00 07/08/20 23:20 Trazodone Hcl 50 Mg Tablet PO 50 mg BEDTIME MRX1 PRN Administration Insomnia Triamcinolone Acetonide 1 appl 06/17/20 08:30 07/13/20 20:08 Triamcinolone Acet 0.5 % Cream 15 Gm Tube TOPICAL Not Given BID@0830,2100 [facility] TO [facility] Allergies Allergies Allergy/AdvReac Type Severity Reaction Status Date / Time haloperidol [From HALDOL] Allergy Intermediate UNKNOWN Verified 06/17/20 16:04 Assessment & Plan Assessment & Plan (1) Schizophrenia: Qualifiers: Schizophrenia type: paranoid schizophrenia Qualified Code(s): F20.0 - Paranoid schizophrenia Status: Acute Code(s): F20.9 - Schizophrenia, unspecified (2) Lack of housing: Status: Acute Code(s): Z59.0 - Homelessness (3) Psychosis: Qualifiers: Psychosis type: schizophrenia Status: Acute Code(s): F29 - Unspecified psychosis not due to a substance or known physiological condition Assessment and Plan: tolerating risperdal consta injection with no side effects. Reduce polypharmacy. seems to be improving with current treatment continue with treatment plan Greater than 50% of the session was spent on counseling and/or coordination of care Patient educated on: diagnosis, medication risk/benefits and substance abuse Informed Consent: further education needed Reason for contiued inpatient stay Substantial Risk for: inability to function and rapid decompensation Greater than 50% of the session was spent on counseling and/or coordination of care
[2020-07-14] MEDS: Buprenorphine/Naloxone 8/2 mg FILM 1 FILM SUBLINGUAL (09:17)
[2020-07-14 09:25] VITALS: BP 112/64; PULSE 55; TEMP 36.2
[2020-07-14] MEDS: Triamcinolone Acet 0.5 % Cream 15 GM TUBE 1 APPL TOPICAL (09:37)
[2020-07-14 11:18] VITALS: BP 118/62; PULSE 78
[2020-07-14] MEDS: cloNIDine HCL 0.1 MG TABLET PO (11:18)
[2020-07-14] MEDS: Ibuprofen 600 MG TABLET PO (13:59)
[2020-07-14] MEDS: Buprenorphine/Naloxone 4/1 mg FILM 1 FILM SUBLINGUAL (16:45)
[2020-07-14 18:00] VITALS: BP 93/50; PULSE 89; TEMP 36.7
[2020-07-14] MEDS: risperiDONE 0.5 MG TABLET 2 MG PO (20:03)
[2020-07-14] MEDS: traZODone HCL 100 MG TABLET 200 MG PO (20:04)
[2020-07-14] MEDS: traZODone HCL 50 MG TABLET PO (23:00)
--- NOTE | 2020-07-15 05:59 | P.PNPSI_ITS ---
Subjective Subjective Reason For Visit: Unspecified Psychotic Diagnostics Vital Signs (24Hr): Vital Signs - 24 hr 07/14/20 09:25 07/14/20 11:18 07/14/20 18:00 Temperature 97.1 F 98.1 F Pulse Rate 55 78 89 Blood Pressure 112/64 118/62 93/50 L Body Mass Index 30.4 Labs Results: 07/12/20 08:16 07/12/20 08:16 Medications Medications Current Medications Generic Name Dose Route Start Last Admin Trade Name Freq PRN Reason Stop Dose Admin Acetaminophen 650 mg 06/17/20 00:01 07/11/20 15:53 Acetaminophen 325 Mg Tablet PO 650 mg Q6H PRN Administration HEADACHE/PAIN.MAIN (SCALE 1-3) Al Hydroxide/Mg Hydroxide 30 ml 06/17/20 00:01 06/19/20 09:19 Magnesium Hydrox/Alum Hydrox 30 Ml Oral.Susp PO 30 ml Q6H PRN Administration HEARTBURN/NAUSEA Benztropine Mesylate 0.5 mg 06/17/20 08:30 07/14/20 20:04 Benztropine Mesylate 0.5 Mg Tablet PO 0.5 mg BID@0830,2100 CHANDA Administration Buprenorphine/Naloxone 1 film 06/17/20 09:00 07/14/20 09:17 Buprenorphine/Naloxone 8/2 Mg Film SUBLINGUAL 1 film DAILY CHANDA Administration Buprenorphine/Naloxone 1 film 06/29/20 17:00 07/14/20 16:45 Buprenorphine/Naloxone 4/1 Mg Film SUBLINGUAL 1 film DAILY@1700 CHANDA Administration Calcium Carbonate 750 mg 06/24/20 20:08 07/08/20 22:36 Calcium Carbonate 750 Mg Tab.Chew PO 750 mg Q6H PRN Administration Heartburn Clonidine HCl 0.1 mg 06/19/20 19:46 07/14/20 11:18 Clonidine Hcl 0.1 Mg Tablet PO 0.1 mg BID PRN Administration anxiety/restlessness Docusate Sodium 100 mg 06/27/20 21:00 07/14/20 20:05 Docusate Sodium 100 Mg Capsule PO 100 mg BID CHANDA Administration Hydroxyzine HCl 25 mg 06/17/20 21:00 07/10/20 21:16 Hydroxyzine Hcl 25 Mg Tablet PO 25 mg BEDTIME MRX1 PRN Administration NIGHT TIME ANXIETY Ibuprofen 600 mg 06/17/20 14:02 07/14/20 13:59 Ibuprofen 600 Mg Tablet PO 600 mg Q6H PRN Administration Pain, Moderate (Pain Scale 4-6 Lorazepam 1 mg 07/10/20 23:05 07/13/20 19:45 Lorazepam 1 Mg Tablet PO 1 mg Q4H PRN Administration anxiety/restlessness Magnesium Citrate 150 ml 06/27/20 10:02 06/27/20 10:19 Magnesium Citrate 300 Ml Solution PO 150 ml DAILY PRN Administration Constipation Magnesium Hydroxide 30 ml 06/17/20 00:01 06/25/20 23:01 Milk Of Magnesia 30 Ml Oral.Susp PO 30 ml Q24H PRN Administration Constipation Multivitamins/Vitamin C 1 tab 06/17/20 09:00 07/14/20 08:50 Multivitamin Tablet PO 1 tab DAILY CHANDA Administration Nicotine Polacrilex 2 mg 06/17/20 00:01 07/04/20 13:54 Nicotine Polacrilex 2 Mg Gum BUCCAL 2 mg Q2H PRN Administration Nicotine Cravings Omeprazole 20 mg 06/17/20 06:30 07/14/20 06:52 Omeprazole 20 Mg Capsule.Dr PO 20 mg DAILY@0630 [facility]ANDA Administration Oxcarbazepine 600 mg 06/17/20 08:30 07/14/20 20:04 Oxcarbazepine 300 Mg Tablet PO 600 mg BID@0830,2100 CHANDA Administration Perphenazine 8 mg 06/17/20 00:01 06/29/20 11:26 Perphenazine 8 Mg Tablet PO 8 mg Q4H PRN Administration anxiety/restlessness Perphenazine 8 mg 07/14/20 21:00 07/14/20 20:04 Perphenazine 8 Mg Tablet PO 8 mg BID CHANDA Administration Risperidone 50 mg 07/07/20 14:00 07/08/20 13:32 Risperidone Microspheres 50 Mg/2 Ml Syringe IM 50 mg Q14D CHANDA Administration Risperidone 2 mg 07/14/20 21:00 07/14/20 20:03 Risperidone 0.5 Mg Tablet PO 2 mg BID CHANDA Administration Trazodone HCl 200 mg 06/17/20 21:00 07/14/20 20:04 Trazodone Hcl 100 Mg Tablet PO 200 mg BEDTIME CHANDA Administration Trazodone HCl 50 mg 06/17/20 21:00 07/14/20 23:00 Trazodone Hcl 50 Mg Tablet PO 50 mg BEDTIME MRX1 PRN Administration Insomnia Triamcinolone Acetonide 1 appl 06/17/20 08:30 07/14/20 20:24 Triamcinolone Acet 0.5 % Cream 15 Gm Tube TOPICAL Not Given BID@829,2099 [facility] Allergies Allergies Allergy/AdvReac Type Severity Reaction Status Date / Time haloperidol [From HALDOL] Allergy Intermediate UNKNOWN Verified 06/17/20 16:04 Assessment & Plan Greater than 50% of the session was spent on counseling and/or coordination of care
[2020-07-15 06:00] VITALS: BP 131/71; PULSE 84; TEMP 36.6; O2SAT 95
[2020-07-15] MEDS: OXcarbazepine 300 MG TABLET 600 MG PO (09:23)
[2020-07-15] MEDS: Docusate Sodium 100 MG CAPSULE PO (09:23)
[2020-07-15] MEDS: Multivitamin TABLET 1 TAB PO (09:23)
[2020-07-15] MEDS: Perphenazine 8 MG TABLET PO (09:23)
[2020-07-15] MEDS: Benztropine Mesylate 0.5 MG TABLET PO (09:23)
[2020-07-15] MEDS: Omeprazole 20 MG CAPSULE.DR PO (09:23)
[2020-07-15] MEDS: risperiDONE 0.5 MG TABLET 2 MG PO (09:24)
[2020-07-15] MEDS: Buprenorphine/Naloxone 8/2 mg FILM 1 FILM SUBLINGUAL (09:24)
[2020-07-15] MEDS: Triamcinolone Acet 0.5 % Cream 15 GM TUBE 1 APPL TOPICAL (09:29)
[2020-07-15 09:57] VITALS: BMI 30.9
[2020-07-15 15:05] LABS: SARS COV2 PCR INHOUSE NEGATIVE (Negative)
[2020-07-15] MEDS: LORazepam 1 MG TABLET PO (16:35)
[2020-07-15] MEDS: Buprenorphine/Naloxone 4/1 mg FILM 1 FILM SUBLINGUAL (16:51)
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
== END 2020-07-15 17:12 | disposition other institution (70) | DRG 885 ==
PROVIDERS: Psychiatry & Neurology Psychiatry; Admitting Provider Psychiatry & Neurology Psychiatry; Emergency Provider Nurse Practitioner Primary Care; PCP Internal Medicine; Visit Provider Psychiatry & Neurology Psychiatry
DX: F20.0 Paranoid schizophrenia (principal); F11.20 Opioid dependence, uncomplicated; Z59.0 Homelessness; Z20.828 Contact with and (suspected) exposure to other viral communicable diseases; Z79.899 Other long term (current) drug therapy
CPT/HCPCS: 36415; 73080; 80051; 80053; 80061; 80076; 80307; 83036; 85025; 87635; 99232; 99239; 99285; J0572; J0573; J0574; J3486; U0003

== ENCOUNTER 2020-07-22 09:02 | Outpatient (REF) | payer MEDICARE, MEDICAID, SELFPAY ==
--- NOTE | 2020-07-22 09:05 | MR_ITS ---
EXAMINATION: MR BRAIN WITHOUT CONTRAST CLINICAL INFORMATION: Ataxia. Memory loss. COMPARISON: None available. TECHNIQUE: Multiplanar, multisequence imaging of the brain was performed without intravenous contrast. FINDINGS: There is symmetric T2 hyperintensity/gliosis within the central aspects of the globi pallidi with surrounding mineralization best seen on the GRE sequence. The remainder of the basal ganglia, thalami, and brainstem demonstrate normal signal. No evidence of chronic microangiopathy. The brain parenchyma volume appears normal for patient's age. The ventricles are normal in size and configuration without hydrocephalus. The major arterial flow voids are preserved at the skull base. The globes appear mildly proptotic but are otherwise unremarkable. Mild paranasal sinus mucosal thickening is noted. The mastoid air cells are clear. MR/MR head/brain wo con IMPRESSION: No intracranial mass lesion, infarction, hemorrhage or evidence of hydrocephalus. T2 hyperintensity is seen within the bilateral globi pallidi with peripheral areas of mineralization. The findings are nonspecific but may represent the sequela of prior hypoxia/ischemia. Brain parenchyma signal otherwise appears normal. No unexpected brain parenchymal volume loss.
== END 2020-07-22 09:03 | disposition home or self-care (01) ==
LOC: HO.MRI 09:02
PROVIDERS: Visit Provider Psychiatry & Neurology Neurology
DX: R27.0 Ataxia, unspecified (principal); R41.3 Other amnesia
CPT/HCPCS: 70551

== ENCOUNTER 2020-08-04 11:41 | Outpatient (REF) | payer MEDICARE, MEDICAID, SELFPAY ==
[2020-08-04 13:39] LABS: Thyroid Stimulating Hormone 1.12 uIU/mL (0.32-4.0)
[2020-08-04 13:44] LABS: Syphilis Screen Nonreactive (Nonreactive)
[2020-08-04 13:53] LABS: Folate 13.1 ng/mL (> or = 4.0); Vitamin B12 627 pg/mL (200-900)
[2020-08-05 08:56] LABS: Lyme Abs Screen <0.90 index
[2020-08-06 07:36] LABS: Transglutaminase Ab IgG 2 U/mL
[2020-08-06 09:32] LABS: Ceruloplasmin 30 mg/dL (18-36)
== END 2020-08-04 11:42 | disposition home or self-care (01) ==
LOC: HO.LAB 11:41
PROVIDERS: PCP Internal Medicine; Visit Provider Psychiatry & Neurology Neurology
DX: R41.3 Other amnesia (principal)
CPT/HCPCS: 36415; 82390; 82607; 82746; 83516; 84443; 86618; 86780

== ENCOUNTER 2021-04-26 14:26 | Outpatient (REF) | payer MEDICARE, MEDICAID, SELFPAY ==
[2021-04-26 15:02] LABS: Amphetamine Screen Urine Not Detected (Not Detect); Barbiturates, Urine Not Detected (Not Detect); Benzodiazepines Screen Urine Not Detected (Not Detect); Cannabinoid Screen Urine Not Detected (Not Detect); Cocaine Screen Urine Not Detected (Not Detect); Opiate Screen Urine Not Detected (Not Detect); Phencyclidine Screen Urine Not Detected (Not Detect)
[2021-04-30 12:40] LABS: Fentanyl, Ur 1.0 (H)
== END 2021-04-26 14:27 | disposition home or self-care (01) ==
LOC: HO.LNP 14:26
PROVIDERS: Visit Provider Psychiatry & Neurology Psychiatry
DX: Z79.899 Other long term (current) drug therapy (principal); F19.11 Other psychoactive substance abuse, in remission
CPT/HCPCS: 80307; 80354

== ENCOUNTER 2021-04-29 13:25 | Outpatient (REF) | payer MEDICARE, MEDICAID, SELFPAY ==
[2021-04-29 14:26] LABS: Amphetamine Screen Urine Not Detected (Not Detect); Barbiturates, Urine Not Detected (Not Detect); Benzodiazepines Screen Urine Not Detected (Not Detect); Cannabinoid Screen Urine Not Detected (Not Detect); Cocaine Screen Urine Not Detected (Not Detect); Fentanyl, urine POSITIVE (Not Detect); Opiate Screen Urine Not Detected (Not Detect); Phencyclidine Screen Urine Not Detected (Not Detect)
== END 2021-04-29 13:26 | disposition home or self-care (01) ==
LOC: HO.LAB 13:25
PROVIDERS: PCP Family Medicine Adult Medicine; Visit Provider Psychiatry & Neurology Psychiatry
DX: Z79.899 Other long term (current) drug therapy (principal)
CPT/HCPCS: 80307

== ENCOUNTER 2021-06-01 09:47 | Outpatient (REF) | payer MEDICARE, MEDICAID, SELFPAY ==
[2021-06-01 11:54] LABS: Amphetamine Screen Urine Not Detected (Not Detect); Barbiturates, Urine Not Detected (Not Detect); Benzodiazepines Screen Urine Not Detected (Not Detect); Cannabinoid Screen Urine POSITIVE (Not Detect); Cocaine Screen Urine Not Detected (Not Detect); Fentanyl, urine Not Detected (Not Detect); Opiate Screen Urine Not Detected (Not Detect); Phencyclidine Screen Urine Not Detected (Not Detect)
== END 2021-06-01 09:48 | disposition home or self-care (01) ==
LOC: HO.LAB 09:47
PROVIDERS: PCP Family Medicine Adult Medicine; Visit Provider Psychiatry & Neurology Psychiatry
DX: F19.11 Other psychoactive substance abuse, in remission (principal); Z79.899 Other long term (current) drug therapy
CPT/HCPCS: 80307; 80364; 80365

== ENCOUNTER 2021-06-03 12:12 | Outpatient (REF) | payer MEDICARE, MEDICAID, SELFPAY ==
[2021-06-03 14:52] LABS: Amphetamine Screen Urine Not Detected (Not Detect); Barbiturates, Urine Not Detected (Not Detect); Benzodiazepines Screen Urine Not Detected (Not Detect); Cannabinoid Screen Urine POSITIVE (Not Detect); Cocaine Screen Urine Not Detected (Not Detect); Fentanyl, urine Not Detected (Not Detect); Opiate Screen Urine Not Detected (Not Detect); Phencyclidine Screen Urine Not Detected (Not Detect)
== END 2021-06-03 12:13 | disposition home or self-care (01) ==
LOC: HO.LAB 12:12
PROVIDERS: PCP Family Medicine Adult Medicine; Visit Provider Psychiatry & Neurology Psychiatry
DX: F19.11 Other psychoactive substance abuse, in remission (principal); Z79.899 Other long term (current) drug therapy
CPT/HCPCS: 80307

== ENCOUNTER 2021-06-08 09:28 | Outpatient (REF) | payer MEDICARE, MEDICAID, SELFPAY ==
[2021-06-08 10:45] LABS: Amphetamine Screen Urine Not Detected (Not Detect); Barbiturates, Urine Not Detected (Not Detect); Benzodiazepines Screen Urine Not Detected (Not Detect); Cannabinoid Screen Urine POSITIVE (Not Detect); Cocaine Screen Urine Not Detected (Not Detect); Fentanyl, urine Not Detected (Not Detect); Opiate Screen Urine Not Detected (Not Detect); Phencyclidine Screen Urine Not Detected (Not Detect)
== END 2021-06-08 09:29 | disposition home or self-care (01) ==
LOC: HO.LAB 09:28
PROVIDERS: Visit Provider Psychiatry & Neurology Psychiatry
DX: F11.20 Opioid dependence, uncomplicated (principal); Z79.899 Other long term (current) drug therapy
CPT/HCPCS: 80307

== ENCOUNTER 2021-06-10 09:55 | Outpatient (REF) | payer MEDICARE, MEDICAID, SELFPAY ==
[2021-06-10 12:35] LABS: Amphetamine Screen Urine Not Detected (Not Detect); Barbiturates, Urine Not Detected (Not Detect); Benzodiazepines Screen Urine Not Detected (Not Detect); Cannabinoid Screen Urine POSITIVE (Not Detect); Cocaine Screen Urine Not Detected (Not Detect); Fentanyl, urine Not Detected (Not Detect); Opiate Screen Urine Not Detected (Not Detect); Phencyclidine Screen Urine Not Detected (Not Detect)
[2021-06-14 08:42] LABS: Codeine, Ur Negative; Hydrocodone, Ur Negative
[2021-06-14 08:43] LABS: Hydromorphone, Ur Negative; Morphine, Ur Negative; Oxycodone, Ur Negative; Oxymorphone, Ur Negative
[2021-06-14 08:44] LABS: Norhydrocodone, Ur Negative; Noroxycodone, Ur Negative
== END 2021-06-10 09:56 | disposition home or self-care (01) ==
LOC: HO.LABR 09:55
PROVIDERS: Visit Provider Psychiatry & Neurology Psychiatry
DX: F19.11 Other psychoactive substance abuse, in remission (principal); Z79.899 Other long term (current) drug therapy
CPT/HCPCS: 80307; 80364; 80365

== ENCOUNTER 2021-06-13 10:20 | Outpatient (REF) | payer MEDICARE, MEDICAID, SELFPAY ==
[2021-06-13 12:35] LABS: Amphetamine Screen Urine Not Detected (Not Detect); Barbiturates, Urine Not Detected (Not Detect); Benzodiazepines Screen Urine Not Detected (Not Detect); Cannabinoid Screen Urine POSITIVE (Not Detect); Cocaine Screen Urine Not Detected (Not Detect); Fentanyl, urine Not Detected (Not Detect); Opiate Screen Urine Not Detected (Not Detect); Phencyclidine Screen Urine Not Detected (Not Detect)
== END 2021-06-13 10:21 | disposition home or self-care (01) ==
LOC: HO.LABR 10:20
PROVIDERS: PCP Family Medicine Adult Medicine; Visit Provider Psychiatry & Neurology Psychiatry
DX: F19.11 Other psychoactive substance abuse, in remission (principal); Z79.899 Other long term (current) drug therapy
CPT/HCPCS: 80307; 80364; 80365

== ENCOUNTER 2021-06-15 11:48 | Outpatient (REF) | payer MEDICARE, MEDICAID, SELFPAY ==
[2021-06-15 13:46] LABS: Amphetamine Screen Urine Not Detected (Not Detect); Barbiturates, Urine Not Detected (Not Detect); Benzodiazepines Screen Urine Not Detected (Not Detect); Cannabinoid Screen Urine POSITIVE (Not Detect); Cocaine Screen Urine Not Detected (Not Detect); Fentanyl, urine Not Detected (Not Detect); Opiate Screen Urine Not Detected (Not Detect); Phencyclidine Screen Urine Not Detected (Not Detect)
== END 2021-06-15 11:49 | disposition home or self-care (01) ==
LOC: HO.LABR 11:48
PROVIDERS: Visit Provider Psychiatry & Neurology Psychiatry
DX: Z79.899 Other long term (current) drug therapy (principal); F19.11 Other psychoactive substance abuse, in remission
CPT/HCPCS: 80307; 80364; 80365

== ENCOUNTER 2021-06-22 09:47 | Outpatient (REF) | payer MEDICARE, MEDICAID, SELFPAY ==
[2021-06-22 11:51] LABS: Amphetamine Screen Urine Not Detected (Not Detect); Barbiturates, Urine Not Detected (Not Detect); Benzodiazepines Screen Urine Not Detected (Not Detect); Cannabinoid Screen Urine POSITIVE (Not Detect); Cocaine Screen Urine Not Detected (Not Detect); Fentanyl, urine Not Detected (Not Detect); Opiate Screen Urine Not Detected (Not Detect); Phencyclidine Screen Urine Not Detected (Not Detect)
== END 2021-06-22 09:48 | disposition home or self-care (01) ==
LOC: HO.LABR 09:47
PROVIDERS: PCP Family Medicine Adult Medicine; Visit Provider Psychiatry & Neurology Psychiatry
DX: F19.11 Other psychoactive substance abuse, in remission (principal); Z79.899 Other long term (current) drug therapy
CPT/HCPCS: 80307; 80364; 80365

== ENCOUNTER 2021-06-24 11:14 | Outpatient (REF) | payer MEDICARE, MEDICAID, SELFPAY ==
[2021-06-24 13:31] LABS: Amphetamine Screen Urine Not Detected (Not Detect); Barbiturates, Urine Not Detected (Not Detect); Benzodiazepines Screen Urine Not Detected (Not Detect); Cannabinoid Screen Urine POSITIVE (Not Detect); Cocaine Screen Urine Not Detected (Not Detect); Fentanyl, urine Not Detected (Not Detect); Opiate Screen Urine Not Detected (Not Detect); Phencyclidine Screen Urine Not Detected (Not Detect)
== END 2021-06-24 11:15 | disposition home or self-care (01) ==
LOC: HO.LABR 11:14
PROVIDERS: PCP Internal Medicine; Visit Provider Psychiatry & Neurology Psychiatry
DX: F19.11 Other psychoactive substance abuse, in remission (principal); Z79.899 Other long term (current) drug therapy
CPT/HCPCS: 80307

== ENCOUNTER 2021-06-27 10:55 | Outpatient (REF) | payer MEDICARE, MEDICAID, SELFPAY ==
[2021-06-27 12:31] LABS: Amphetamine Screen Urine Not Detected (Not Detect); Barbiturates, Urine Not Detected (Not Detect); Benzodiazepines Screen Urine Not Detected (Not Detect); Cannabinoid Screen Urine POSITIVE (Not Detect); Cocaine Screen Urine Not Detected (Not Detect); Fentanyl, urine Not Detected (Not Detect); Opiate Screen Urine Not Detected (Not Detect); Phencyclidine Screen Urine Not Detected (Not Detect)
== END 2021-06-27 10:56 | disposition home or self-care (01) ==
LOC: HO.LABR 10:55
PROVIDERS: PCP Internal Medicine; Visit Provider Psychiatry & Neurology Psychiatry
DX: Z79.899 Other long term (current) drug therapy (principal); F19.11 Other psychoactive substance abuse, in remission
CPT/HCPCS: 80307

== ENCOUNTER 2021-07-01 10:31 | Outpatient (REF) | payer MEDICARE, MEDICAID, SELFPAY ==
[2021-07-01 12:27] LABS: Amphetamine Screen Urine Not Detected (Not Detect); Barbiturates, Urine Not Detected (Not Detect); Benzodiazepines Screen Urine Not Detected (Not Detect); Cannabinoid Screen Urine POSITIVE (Not Detect); Cocaine Screen Urine Not Detected (Not Detect); Fentanyl, urine Not Detected (Not Detect); Opiate Screen Urine Not Detected (Not Detect); Phencyclidine Screen Urine Not Detected (Not Detect)
== END 2021-07-01 10:32 | disposition home or self-care (01) ==
LOC: HO.LABR 10:31
PROVIDERS: PCP Family Medicine Adult Medicine; Visit Provider Psychiatry & Neurology Psychiatry
DX: F11.20 Opioid dependence, uncomplicated (principal); Z79.899 Other long term (current) drug therapy
CPT/HCPCS: 80307; 80364; 80365

== ENCOUNTER 2021-07-06 14:30 | Outpatient (REF) | payer MEDICARE, MEDICAID, SELFPAY | END 2021-07-06 14:31 | disposition home or self-care (01) | LOC: HO.LNP 14:30 | PROVIDERS: Visit Provider Psychiatry & Neurology Psychiatry | DX: Z13.89 Encounter for screening for other disorder (principal) ==

== ENCOUNTER 2021-07-08 09:37 | Outpatient (REF) | payer MEDICARE, MEDICAID, SELFPAY ==
[2021-07-08 11:28] LABS: Amphetamine Screen Urine Not Detected (Not Detect); Barbiturates, Urine Not Detected (Not Detect); Benzodiazepines Screen Urine Not Detected (Not Detect); Cannabinoid Screen Urine POSITIVE (Not Detect); Cocaine Screen Urine Not Detected (Not Detect); Fentanyl, urine Not Detected (Not Detect); Opiate Screen Urine Not Detected (Not Detect); Phencyclidine Screen Urine Not Detected (Not Detect)
== END 2021-07-08 09:38 | disposition home or self-care (01) ==
LOC: HO.LABR 09:37
PROVIDERS: PCP Internal Medicine; Visit Provider Psychiatry & Neurology Psychiatry
DX: Z79.899 Other long term (current) drug therapy (principal); F19.11 Other psychoactive substance abuse, in remission
CPT/HCPCS: 80307; 80364; 80365

== ENCOUNTER 2021-07-13 10:22 | Outpatient (REF) | payer MEDICARE, MEDICAID, SELFPAY ==
[2021-07-13 11:37] LABS: Amphetamine Screen Urine Not Detected (Not Detect); Barbiturates, Urine Not Detected (Not Detect); Benzodiazepines Screen Urine Not Detected (Not Detect); Cannabinoid Screen Urine POSITIVE (Not Detect); Cocaine Screen Urine Not Detected (Not Detect); Fentanyl, urine Not Detected (Not Detect); Opiate Screen Urine Not Detected (Not Detect); Phencyclidine Screen Urine Not Detected (Not Detect)
== END 2021-07-13 10:23 | disposition home or self-care (01) ==
LOC: HO.LABR 10:22
PROVIDERS: PCP Internal Medicine; Visit Provider Psychiatry & Neurology Psychiatry
DX: F19.11 Other psychoactive substance abuse, in remission (principal); Z79.899 Other long term (current) drug therapy
CPT/HCPCS: 80307; 80364; 80365

== ENCOUNTER 2021-07-15 11:12 | Outpatient (REF) | payer MEDICARE, MEDICAID, SELFPAY | END 2021-07-15 11:13 | disposition home or self-care (01) | LOC: HO.LNP 11:12 | PROVIDERS: Visit Provider Psychiatry & Neurology Psychiatry | DX: Z13.89 Encounter for screening for other disorder (principal) ==

== ENCOUNTER 2021-07-22 10:40 | Outpatient (REF) | payer MEDICARE, MEDICAID, SELFPAY ==
[2021-07-22 12:48] LABS: Amphetamine Screen Urine Not Detected (Not Detect); Barbiturates, Urine Not Detected (Not Detect); Benzodiazepines Screen Urine Not Detected (Not Detect); Cannabinoid Screen Urine POSITIVE (Not Detect); Cocaine Screen Urine Not Detected (Not Detect); Fentanyl, urine Not Detected (Not Detect); Opiate Screen Urine Not Detected (Not Detect); Phencyclidine Screen Urine Not Detected (Not Detect)
== END 2021-07-22 10:41 | disposition home or self-care (01) ==
LOC: HO.LABR 10:40
PROVIDERS: PCP Internal Medicine; Visit Provider Psychiatry & Neurology Psychiatry
DX: F19.11 Other psychoactive substance abuse, in remission (principal); Z79.899 Other long term (current) drug therapy
CPT/HCPCS: 80307; 80364; 80365

== ENCOUNTER 2021-07-29 10:54 | Outpatient (REF) | payer MEDICARE, MEDICAID, SELFPAY | END 2021-07-29 10:55 | disposition home or self-care (01) | LOC: HO.LNP 10:54 | PROVIDERS: Visit Provider Psychiatry & Neurology Psychiatry | DX: Z13.89 Encounter for screening for other disorder (principal) ==

== ENCOUNTER 2021-08-02 09:17 | Outpatient (REF) | payer MEDICARE, MEDICAID, SELFPAY ==
[2021-08-02 09:44] LABS: MANUAL DIFF FLAG NO
[2021-08-02 10:49] LABS: Basophils Percent Auto 0.2 % (0-2); Eosinophils Absolute Auto 0.2 X10*3/uL (0.0-0.4); Eosinophils Percent Auto 1.8 % (0-4); Hematocrit 48.5 % (42.0-52.0); Hemoglobin 16.3 g/dl (14.0-18.0); Imm Gran Abs Auto 0.02 X10*3/uL (0.00-0.03); Imm Gran Pct Auto 0.2 % (0.0-0.4); Lymphocytes Absolute Auto 2.4 X10*3/uL (1.2-4.9); Lymphocytes Percent Auto 22.5 % (20-40); Mean Corpuscular HGB Conc 33.6 g/dl (31.0-36.0); Mean Corpuscular Hemoglobin 31.2 pg (27.0-33.0); Mean Corpuscular Volume 92.9 fL (80.0-98.0); Mean Platelet Volume 9.6 fL (9.4-12.4); Monocytes Absolute Auto 0.9 X10*3/uL (0.1-1.2); Monocytes Percent Auto 8.5 % (2-11); Neutrophils Percent Auto 66.8 % (45-73); Platelet Count 259 X10*3/uL (160-400); Red Blood Count 5.22 X10*6/uL (4.60-5.80); Red Cell Distribution Width 13.2 % (11.0-16.0); White Blood Count 10.5 X10*3/uL (4.8-10.8)
[2021-08-02 11:13] LABS: Amphetamine Screen Urine Not Detected (Not Detect); Barbiturates, Urine Not Detected (Not Detect); Benzodiazepines Screen Urine Not Detected (Not Detect); Cannabinoid Screen Urine POSITIVE (Not Detect); Cocaine Screen Urine Not Detected (Not Detect); Fentanyl, urine Not Detected (Not Detect); Opiate Screen Urine Not Detected (Not Detect); Phencyclidine Screen Urine Not Detected (Not Detect)
[2021-08-02 11:34] LABS: Alanine Aminotransferase 20 U/L (0-40); Albumin Level 4.4 g/dL (3.5-5.0); Alkaline Phosphatase 51 U/L (39-117); Anion Gap 12 (12-20); Aspartate Amino Transferase 21 U/L (5-37); Bilirubin Total 0.5 mg/dL (0.0-1.0); Blood Urea Nitrogen 10 mg/dL (9-16); Calcium 9.4 mg/dL (8.4-10.2); Carbon Dioxide 28 mmol/L (22-29); Chloride 100 mmol/L (96-108); Cholesterol 211 mg/dL; Estimated Glomerular Filt Rate > 60; Glucose Fasting 90 mg/dL (60-99); HDL Cholesterol 42 mg/dL; LDL Cholesterol Calculated 147 mg/dl; Potassium 4.8 mmol/L (3.3-5.1); Sodium 135 mmol/L (135-145); Total Protein 7.5 g/dL (6.5-8.0); Triglycerides 111 mg/dL
[2021-08-03 10:07] LABS: ~HepC Num1 13.83 S/CO (0.00-0.79); ~Hepatitis C Antibody Reactive (Nonreactive)
== END 2021-08-02 09:18 | disposition home or self-care (01) ==
LOC: HO.LAB 09:17
PROVIDERS: Absent Provider Psychiatry & Neurology Psychiatry; PCP Internal Medicine; Visit Provider Internal Medicine
DX: Z00.00 Encounter for general adult medical examination without abnormal findings (principal); F19.10 Other psychoactive substance abuse, uncomplicated; E11.9 Type 2 diabetes mellitus without complications; Z20.2 Contact with and (suspected) exposure to infections with a predominantly sexual mode of transmission; Z79.899 Other long term (current) drug therapy
CPT/HCPCS: 36415; 80053; 80061; 80307; 80364; 80365; 85025; 86803

== ENCOUNTER 2021-08-17 10:30 | Outpatient (REF) | payer MEDICARE, MEDICAID, SELFPAY ==
[2021-08-17 11:44] LABS: Amphetamine Screen Urine Not Detected (Not Detect); Barbiturates, Urine Not Detected (Not Detect); Benzodiazepines Screen Urine Not Detected (Not Detect); Cannabinoid Screen Urine POSITIVE (Not Detect); Cocaine Screen Urine Not Detected (Not Detect); Fentanyl, urine Not Detected (Not Detect); Opiate Screen Urine Not Detected (Not Detect); Phencyclidine Screen Urine Not Detected (Not Detect)
[2021-08-22 09:48] LABS: Codeine, Ur Negative
[2021-08-22 09:49] LABS: Hydrocodone, Ur Negative; Hydromorphone, Ur Negative; Morphine, Ur Negative; Norhydrocodone, Ur Negative; Noroxycodone, Ur Negative; Oxycodone, Ur Negative; Oxymorphone, Ur Negative
== END 2021-08-17 10:31 | disposition home or self-care (01) ==
LOC: HO.LABR 10:30
PROVIDERS: PCP Family Medicine Adult Medicine; Visit Provider Psychiatry & Neurology Psychiatry
DX: F19.11 Other psychoactive substance abuse, in remission (principal); Z79.899 Other long term (current) drug therapy
CPT/HCPCS: 80307; 80364; 80365

== ENCOUNTER 2021-08-19 10:58 | Outpatient (REF) | payer MEDICARE, MEDICAID, SELFPAY | END 2021-08-19 10:59 | disposition home or self-care (01) | LOC: HO.LNP 10:58 | PROVIDERS: Visit Provider Psychiatry & Neurology Psychiatry | DX: Z13.89 Encounter for screening for other disorder (principal) ==

== ENCOUNTER 2021-08-31 09:36 | Outpatient (REF) | payer MEDICARE, MEDICAID, SELFPAY ==
[2021-08-31 11:42] LABS: Amphetamine Screen Urine Not Detected (Not Detect); Barbiturates, Urine Not Detected (Not Detect); Benzodiazepines Screen Urine Not Detected (Not Detect); Cannabinoid Screen Urine POSITIVE (Not Detect); Cocaine Screen Urine Not Detected (Not Detect); Fentanyl, urine Not Detected (Not Detect); Opiate Screen Urine Not Detected (Not Detect); Phencyclidine Screen Urine Not Detected (Not Detect)
== END 2021-08-31 09:37 | disposition home or self-care (01) ==
LOC: HO.LABR 09:36
PROVIDERS: PCP Family Medicine Adult Medicine; Visit Provider Psychiatry & Neurology Psychiatry
DX: F19.11 Other psychoactive substance abuse, in remission (principal); Z79.899 Other long term (current) drug therapy
CPT/HCPCS: 80307; 80364; 80365

== ENCOUNTER 2021-09-07 12:33 | Outpatient (REF) | payer MEDICARE, MEDICAID, SELFPAY ==
[2021-09-07 13:31] LABS: Amphetamine Screen Urine Not Detected (Not Detect); Barbiturates, Urine Not Detected (Not Detect); Benzodiazepines Screen Urine Not Detected (Not Detect); Cannabinoid Screen Urine POSITIVE (Not Detect); Cocaine Screen Urine Not Detected (Not Detect); Fentanyl, urine Not Detected (Not Detect); Opiate Screen Urine Not Detected (Not Detect); Phencyclidine Screen Urine Not Detected (Not Detect)
== END 2021-09-07 12:34 | disposition home or self-care (01) ==
LOC: HO.LABR 12:33
PROVIDERS: PCP Family Medicine Adult Medicine; Visit Provider Psychiatry & Neurology Psychiatry
DX: F19.11 Other psychoactive substance abuse, in remission (principal); Z79.899 Other long term (current) drug therapy
CPT/HCPCS: 80307

== ENCOUNTER 2021-09-14 10:16 | Outpatient (REF) | payer MEDICARE, MEDICAID, SELFPAY ==
[2021-09-14 11:21] LABS: Amphetamine Screen Urine Not Detected (Not Detect); Barbiturates, Urine Not Detected (Not Detect); Benzodiazepines Screen Urine Not Detected (Not Detect); Cannabinoid Screen Urine POSITIVE (Not Detect); Cocaine Screen Urine Not Detected (Not Detect); Fentanyl, urine Not Detected (Not Detect); Opiate Screen Urine Not Detected (Not Detect); Phencyclidine Screen Urine Not Detected (Not Detect)
[2021-09-18 07:31] LABS: Codeine, Ur NEGATIVE; Hydrocodone, Ur NEGATIVE; Oxycodone, Ur NEGATIVE
[2021-09-18 07:36] LABS: Hydromorphone, Ur NEGATIVE; Morphine, Ur NEGATIVE; Oxymorphone, Ur NEGATIVE
[2021-09-18 07:37] LABS: Norhydrocodone, Ur NEGATIVE; Noroxycodone, Ur NEGATIVE
== END 2021-09-14 10:17 | disposition home or self-care (01) ==
LOC: HO.LAB 10:16
PROVIDERS: PCP Family Medicine Adult Medicine; Visit Provider Psychiatry & Neurology Psychiatry
DX: F19.11 Other psychoactive substance abuse, in remission (principal); Z79.899 Other long term (current) drug therapy
CPT/HCPCS: 80307; 80364; 80365

== ENCOUNTER 2022-02-06 13:04 | Emergency (ER) | payer MEDICARE, MEDICAID, SELFPAY ==
--- NOTE | ~2022-02-06 | XR_ITS ---
EXAMINATION: XR CHEST CLINICAL INFORMATION: Chest pain COMPARISON: None TECHNIQUE: Frontal view of the chest was obtained. FINDINGS: Given depth of inspiration lungs are grossly clear. Heart and pulmonary vessels normal. No congestive change. XR/XR chest 1V IMPRESSION: No active disease.
[2022-02-06 13:18] VITALS: BP 144/92; PULSE 70; RESP 18; TEMP 37.2; O2SAT 98; BMI 31.8
--- NOTE | 2022-02-06 13:20 | ECG_ITS ---
Test Reason : CHEST PAIN Blood Pressure : / mmHG Vent. Rate : 056 BPM Atrial Rate : 056 BPM P-R Int : 136 ms QRS Dur : 086 ms QT Int : 416 ms P-R-T Axes : 057 020 001 degrees QTc Int : 401 ms Sinus bradycardia Possible Left atrial enlargement Borderline ECG When compared with ECG of 08-JUN-2020 08:16, Vent. rate has decreased BY 44 BPM QT has shortened Referred By: Generic ED Physician Electronically Signed By:Luther Pat
[2022-02-06 13:40] LABS: MANUAL DIFF FLAG NO
[2022-02-06 13:42] LABS: Basophils Percent Auto 0.2 % (0-2); Eosinophils Absolute Auto 0.2 X10*3/uL (0.0-0.4); Eosinophils Percent Auto 2.1 % (0-4); Hematocrit 45.7 % (42.0-52.0); Hemoglobin 15.5 g/dl (14.0-18.0); Imm Gran Abs Auto 0.02 X10*3/uL (0.00-0.03); Imm Gran Pct Auto 0.2 % (0.0-0.4); Lymphocytes Percent Auto 31.9 % (20-40); Mean Corpuscular HGB Conc 33.9 g/dl (31.0-36.0); Mean Corpuscular Hemoglobin 31.4 pg (27.0-33.0); Mean Corpuscular Volume 92.7 fL (80.0-98.0); Mean Platelet Volume 9.2 fL (9.4-12.4); Monocytes Absolute Auto 0.7 X10*3/uL (0.1-1.2); Monocytes Percent Auto 7.7 % (2-11); Neutrophils Absolute Auto 5.5 x10*3/uL (2.0-8.3); Neutrophils Percent Auto 57.9 % (45-73); Platelet Count 238 X10*3/uL (160-400); Red Blood Count 4.93 X10*6/uL (4.60-5.80); Red Cell Distribution Width 13.2 % (11.0-16.0); White Blood Count 9.4 X10*3/uL (4.8-10.8)
[2022-02-06 13:53] LABS: Anion Gap 13 (12-20); Blood Urea Nitrogen 7 mg/dL (9-16); Calcium 9.1 mg/dL (8.4-10.2); Carbon Dioxide 25 mmol/L (22-29); Chloride 104 mmol/L (96-108); Creatinine Clr Calc Pharmacy 102.9; Estimated Glomerular Filt Rate > 60; Glucose Random 122 mg/dL (60-115); Potassium 3.6 mmol/L (3.3-5.1); Sodium 138 mmol/L (135-145)
[2022-02-06 14:01] LABS: Troponin-I High Sensitivity < 3.5 ng/L (<3.5-35.0)
--- NOTE | 2022-02-06 17:02 | ED_ITS ---
HPI - Chest Pain General Chief Complaint: Chest Pain Stated Complaint: chest pain, r arm numb Time Seen by Provider: 02/06/22 16:52 Source: patient Mode of arrival: ambulatory Limitations: no limitations History of Present Illness HPI narrative: 51-YEAR-OLD MALE WITH HISTORY OF UNDERLYING MENTAL HEALTH, OPIATE USE DISORDER ON SUBOXONE HERE WITH REPORTS OF 3 DAYS OF RIGHT-SIDED NECK AND CHEST PAIN. FEELS LIKE HE HAS PAIN THAT RADIATES DOWN THE RIGHT ARM WHICH IS DESCRIBED NUMBNESS TINGLING. NO SHORTNESS OF BREATH, NO COUGH, NO FEVER, NO DIZZINESS, NO HEADACHE, NO VISION CHANGES, NO VOMITING. NO LEG SWELLING OR LEG PAIN. Related Data Home Medications Medication Instructions Recorded Confirmed oxcarbazepine 600 mg tablet 600 mg PO BID 07/05/21 08/05/21 perphenazine 8 mg tablet 8 mg PO BEDTIME 07/05/21 08/05/21 Previous Rx's Medication Instructions Recorded benztropine 0.5 mg tablet 0.5 mg PO BID@0830,2100 30 Days 07/15/20 #60 tab buprenorphine 4 mg-naloxone 1 mg 1 film SUBLINGUAL DAILY@1700 5 07/15/20 sublingual film (Suboxone) Days ea buprenorphine 8 mg-naloxone 2 mg 1 film SUBLINGUAL DAILY 5 Days ea 07/15/20 sublingual film (Suboxone) clonidine HCl 0.1 mg tablet 0.1 mg PO BID PRN 30 Days #60 tab 07/15/20 docusate sodium 100 mg capsule 100 mg PO BID 30 Days #60 cap 07/15/20 omeprazole 20 mg capsule,delayed 20 mg PO DAILY 30 Days #30 cap 07/15/20 release betamethasone, augmented 0.05 % 1 appl TOPICAL BID PRN #50 g 02/17/21 topical cream cyclobenzaprine 10 mg tablet 10 mg PO TID PRN #10 tab 02/06/22 naproxen 500 mg tablet 500 mg PO BID PRN #20 tab 02/06/22 prednisone 20 mg tablet 40 mg PO DAILY #10 tab 02/06/22 Allergies Allergy/AdvReac Type Severity Reaction Status Date / Time haloperidol [From HALDOL] Allergy Intermediate UNKNOWN Verified 08/05/21 13:57 Review of Systems Review of Systems: Yes all other systems are reviewed and are negative Constitutional: Constitutional: Reports no additional constitutional complaints, Denies body ache(s), Denies chills, Denies fever(s), Denies headache(s) and Denies weakness Eyes: Eyes: Reports no additional eye complaints and Denies change in vision ENT: Reports system reviewed and no additional complaints, except as documented, Denies dizziness, Denies headache(s), Denies nasal congestion, Denies nasal discharge and Reports neck pain Cardiovascular: Cardiovascular: Reports no additional cardiovascular complaints, Reports chest pain, Denies leg edema and Denies dyspnea Respiratory: Respiratory: Reports no additional respiratory complaints, Denies cough and Denies dyspnea Gastrointestinal: Gastrointestinal: Reports no additional gastrointestinal complaints, Denies abdominal pain, Denies diarrhea, Denies nausea and Denies vomiting Genitourinary: Genitourinary: Denies urinary incontinence Musculoskeletal: Musculoskeletal: Reports no additional musculoskeletal complaints, Denies back pain, Denies arthralgias, Denies joint swelling, Reports neck pain, Reports numbness and Reports tingling Integumentary/Breasts: Skin/Breast: Reports system reviewed and no additional complaints, except as docu and Denies rash Neurologic: Reports system reviewed and no additional complaints, except as documented, Denies Abnormal speech present, Denies dizziness, Denies headache(s), Reports numbness, Reports tingling and Denies weakness PMFSH Past Medical History Attestation statement: The following information was validated with the patient. Source: old records reviewed and nursing notes reviewed Medical History Psychosis Schizophrenia Substance abuse Surgical History History of liver biopsy Family History Family History Father Medical history unknown Mother Medical history unknown Social History Social History Housing: Apartment Patient Tobacco Use Status: Current everyday Tobacco user Tobacco use type: Cigarette Cigarettes Per Day: 20 e-Cigarette/Vaping Use: Never Used Second Hand Smoke Exposure: No Advance Directives: No Advance Directives Information Provided: No service: No Current occupational status: disabled Cognitive needs: No Hearing needs: No Vision needs: No Physical Exam Vital Signs: Vital Signs: Last Vital Signs Temp 98.9 F 02/06/22 13:18 Pulse 50 02/06/22 17:08 Resp 16 02/06/22 17:08 BP 140/89 H 02/06/22 17:08 Pulse Ox 97 02/06/22 17:08 BMI result Body Mass Index 31.8 Const: General: cooperative, healthy appearing, comfortable and no acute d istress Orientation/consciousness: patient oriented x3 Limitations: no limitations HEENT: Head: Yes normal to inspection Ears: hearing grossly normal bilaterally General nose exam: Normal external nose present Face and sinu s: Yes normal facial exam Mouth: Normal oral and palatal mucosa present Throat: Yes posterior oropharynx normal Eyes: General: appearance normal, both eyes and all related structures Pupils: Equal, round and reactive pupils present Neck: Other: THERE IS TENDERNESS TO THE RIGHT TRAPEZIUS WITH A PALPABLE MUSCLE SPASM. Neck: Yes normal visual inspection Chest: Chest palpation & inspection: normal inspection of the chest Chest/axillae images: 1. TENDERNESS Resp: Effort & Inspection: normal respiratory effort Auscultation: clear to auscultation bilaterally Cardio: Rate: regular rate Rhythm: regular rhythm Peripheral pulses: Peripheral pulses 2+ throughout GI: Inspection: Yes normal to inspection Palpation (GI): Soft to palpation and nontender Auscultation: normal bowel sounds Back/Spine/Pelvis: Thoracic/Lumbar Spine: thoracic and lumbar spine normal to inspection Skin: General skin exam: no rashes or lesions noted Neuro: General: patient oriented x3, no focal motor deficits and normal sensation to monofilament Cranial nerves: Yes CN's II-XII intact bilaterally, Yes Equal, round and reactive pupils present, Yes Bilaterally intact EOM present, Yes Nystagmus not present, Yes Normal facial strength present and Yes Midline tongue present Cognition (Neuro): normal cognition Speech: No Abnormal speech present Gait exam (Neuro): Normal gait present Motor exam (neuro): 5/5 motor strength present throughout Sensory Exam: Normal double s imultaneous stimulation for sensation Extrem: General: Yes normal to inspection and Yes no pedal edema Course Course Course Narrative: 51-YEAR-OLD MALE WITH HISTORY OF OPIATE USE DISORDER, MENTAL HEALTH HERE WITH REPORTS OF 3 DAYS RIGHT-SIDED NECK AND CHEST PAIN WITH RADIATION DOWN RIGHT ARM NUMBNESS AND TINGLING. NO OTHER COMPLAINTS. REVIEWED EKG AND LABS AND X-RAY FROM TRIAGE WHICH ARE ALL UNREMARKABLE. ON EXAM THE PATIENT HAS PALPABLE TENDERNESS OVER THE RIGHT TRAPEZIUS AND UPPER ANTERIOR RIGHT CHEST WITH A PALPABLE MUSCLE SPASM. THIS IS LIKELY CERVICAL RADICULOPATHY. LOW CONCERN FOR ACS WITH NEGATIVE TROPONIN, NEGATIVE EKG AND ATYPICAL SYMPTOMS. PATIENT GIVEN TORADOL WITH IMPROVEMENT OF SYMPTOMS. WILL SEND HOME WITH NSAID, PREDNISONE AND MUSCLE RELAXANT. REVIEWED WORRISOME SIGNS AND SYMPTOMS OF WHEN TO RETURN TO THE EMERGENCY DEPARTMENT. COMFORTABLE DISCHARGE HOME. MDM - Chest Pain MDM Narrative Medical decision making narrative: Low concern for PE with no clinical findings concerning for DVT, no hypoxia or tachycardia or tachypnea Low concern for ACS with normal EKG, negative troponin symptoms greater than 3 days with atypical story Medical Records Data Attestation: I reviewed the patient's medical records. Lab Data Attestation: I reviewed the patient's lab results. Result diagrams: 02/06/22 13:35 02/06/22 13:35 Labs: Lab Results 02/06/22 02/06/22 02/06/22 Range/Units 13:35 13:35 13:35 WBC 9.4 (4.8-10.8) X10*3/uL RBC 4.93 (4.60-5.80) X10*6/uL Hgb 15.5 (14.0-18.0) g/dl Hct 45.7 (42.0-52.0) % MCV 92.7 (80.0-98.0) fL MCH 31.4 (27.0-33.0) pg MCHC 33.9 (31.0-36.0) g/dl RDW 13.2 (11.0-16.0) % Plt Count 238 (160-400) X10*3/uL MPV 9.2 L (9.4-12.4) fL Immature Gran % (Auto) 0.2 (0.0-0.4) % Neut % (Auto) 57.9 (45-73) % Lymph % (Auto) 31.9 (20-40) % [place] % (Auto) 7.7 (2-11) % Eos % (Auto) 2.1 (0-4) % Baso % (Auto) 0.2 (0-2) % Lymph # (Auto) 3.0 (1.2-4.9) X10*3/uL [place] # (Auto) 0.7 (0.1-1.2) X10*3/uL Eos # (Auto) 0.2 (0.0-0.4) X10*3/uL Baso # (Auto) 0.0 (0.0-0.2) X10*3/uL Abs Immat Gran (auto) 0.02 (0.00-0.03) X10*3/uL Absolute Neuts (auto) 5.5 (2.0-8.3) x10*3/uL Absolute Nucleated RBC 0.000 (0.0-0.012) X10*3/uL Nucleated RBC % (auto) 0.0 (0.0-0.2) /100WBC Sodium 138 (135-145) mmol/L Potassium 3.6 D (3.3-5.1) mmol/L Chloride 104 (96-108) mmol/L Carbon Dioxide 25 (22-29) mmol/L Anion Gap 13 (12-20) BUN 7 L (9-16) mg/dL Creatinine 0.82 (0.5-1.4) mg/dL Estim Creat Clear Calc 102.9 Estimated GFR > 60 Random Glucose 122 H (60-115) mg/dL Calcium 9.1 (8.4-10.2) mg/dL Troponin I High Sens < 3.5 (<3.5-35.0) ng/L Imaging Data Chest x-ray: Attestation: I personally reviewed and interpreted this imaging study as follows: Radiologist's impression: EXAMINATION: XR CHEST CLINICAL INFORMATION: Chest pain COMPARISON: None TECHNIQUE: Frontal view of the chest was obtained. FINDINGS: Given depth of inspiration lungs are grossly clear. Heart and pulmonary vessels normal. No congestive change. XR/XR chest 1V IMPRESSION: No active disease. ? ECG Data ECG #1: Attestation: I personally reviewed and interpreted this ECG as follows: ECG interpretation date: 02/06/22 ECG interpretation time: 13:24 Interpretation: Sinus bradycardia with a rate 56, normal MO, normal QRS, normal QT Discharge Plan Discharge Clinical Impression: Cervical radiculopathy Patient Disposition: Home, Self-Care Instructions: Cervical Radiculopathy (ED) Additional Instructions: HEAT TO THE AREA, MASSAGE NO HEAVY LIFTING WITH THE ARM FOLLOW-UP WITH YOUR DOCTOR IN 1 WEEK FOR PERSISTENT SYMPTOMS Prescriptions: New naproxen 500 mg tablet 500 mg PO BID PRN (Reason: pain) Qty: 20 0RF cyclobenzaprine 10 mg tablet 10 mg PO TID PRN (Reason: muscle spasm) Qty: 10 0RF prednisone 20 mg tablet 40 mg PO DAILY Qty: 10 0RF No Action clonidine HCl 0.1 mg Tablet 0.1 mg PO BID PRN (Reason: Anxiety/Restlessness) 30 Days Qty: 60 0RF benztropine 0.5 mg Tablet 0.5 mg PO BID@0830,2100 30 Days Qty: 60 0RF buprenorphine-naloxone [Suboxone] 8-2 mg Film 1 film sublingual DAILY 5 Days 0RF buprenorphine-naloxone [Suboxone] 4-1 mg Film 1 film sublingual DAILY@1700 5 Days 0RF docusate sodium 100 mg Capsule 100 mg PO BID 30 Days Qty: 60 0RF omeprazole 20 mg Capsule,Delayed Release(Dr/Ec) 20 mg PO DAILY 30 Days Qty: 30 0RF betamethasone, augmented 0.05 % cream 1 appl topical BID PRN (Reason: itching) Qty: 50 0RF oxcarbazepine 600 mg tablet 600 mg PO BID 0RF perphenazine 8 mg tablet 8 mg PO BEDTIME 0RF Referrals: John Paul Rosenthal DO [Primary Care Provider] - 1 week (FOR PERSISTENT SYMPTOMS) Interventions: ED Discharge Assessment Last Done: 02/06/22 17:20 Discharge Date/Time: 02/06/22 17:21
[2022-02-06 17:08] VITALS: BP 140/89; PULSE 50; RESP 16; O2SAT 97
[2022-02-06] MEDS: Ketorolac Tromethamine 60 MG/2 ML VIAL IM (17:09)
== END 2022-02-06 17:21 | disposition home or self-care (01) ==
PROVIDERS: Emergency Provider Emergency Medicine; PCP Family Medicine Adult Medicine
DX: M54.12 Radiculopathy, cervical region (principal); F11.20 Opioid dependence, uncomplicated; F17.200 Nicotine dependence, unspecified, uncomplicated; F12.90 Cannabis use, unspecified, uncomplicated
CPT/HCPCS: 36415; 71045; 80048; 84484; 85025; 93005; 96372; 99283; 99284; J1885

== ENCOUNTER 2022-02-10 11:57 | Inpatient (IN) | payer MEDICARE, MEDICAID, SELFPAY ==
--- NOTE | ~2022-02-10 | XR_ITS ---
EXAMINATION: XR CHEST CLINICAL INFORMATION: Right-sided chest pain COMPARISON: Previous chest x-ray January 2022 TECHNIQUE: Frontal view of the chest was obtained. FINDINGS: No significant abnormality is noted involving the heart, lungs, mediastinum, bony thorax or soft tissues. XR/XR chest 1V IMPRESSION: Unremarkable examination.
--- NOTE | ~2022-02-10 | CT_ITS ---
EXAMINATION: CT HEAD WITHOUT CONTRAST CLINICAL INFORMATION: Right-sided weakness. COMPARISON: Brain MRI 07/22/2020. TECHNIQUE: Contiguous axial imaging was performed from the skull base to vertex without intravenous administration of contrast. This CT examination was performed using dose optimization techniques as appropriate, variously including the following: *Automated exposure control *Adjustment of mA and/or kV according to patient size (this includes techniques or standardized protocols for targeted exams where dose is matched to indication/reason for exam; i.e. extremities or head) *Use of iterative reconstruction technique DLP: 748 mGy-cm FINDINGS: There is no acute intracranial hemorrhage or abnormal extra-axial collection. No intracranial mass effect or midline shift. Lateral and third ventricles are proportionate to the subarachnoid spaces. No hydrocephalus. There are symmetric foci of hypoattenuation within the globus pallidus bilaterally. [place]-white matter differentiation is otherwise preserved and there is no evidence of acute territorial infarct. The calvarium and skull base are intact. Mastoid air cells and middle ear cavities are well aerated. No active paranasal sinus disease. CT/CT head/brain wo con IMPRESSION: No acute intracranial finding. There is symmetric hypoattenuation within the globus pallidus bilaterally. These findings coincide with the abnormality depicted on MR imaging of the brain from 07/22/2020.
--- NOTE | ~2022-02-10 | MR_ITS ---
EXAMINATION: MR BRAIN WITHOUT AND WITH CONTRAST MR CERVICAL SPINE WITHOUT AND WITH CONTRAST CLINICAL INFORMATION: Right-sided weakness/sensation loss. IV drug abuse. COMPARISON: CT head from 02/10/2022. Brain MRI from 07/22/2020. TECHNIQUE: MRI of the brain and cervical spine was obtained using routine sequences without and following the administration of 8.5 mL of Gadavist intravenous contrast. FINDINGS: Brain: No focal restricted diffusion is demonstrated to suggest acute or subacute cerebral ischemia. No evidence of acute hemorrhagic products on heme-sensitive imaging. Scattered periventricular and deep white matter T2 FLAIR hyperintensities consistent with mild underlying microangiopathy. Symmetric T2 hyperintensities within the bilateral globus pallidi with surrounding susceptibility artifact. The ventricles are normal in morphology and size. No abnormal mass effect. No midline shift. Normal appearance of the pituitary gland. Normal positioning of the cerebellar tonsils. Normal arterial and venous vascular flow voids are present. No abnormal contrast enhancement. Normal, homogeneous marrow signal. Mild mucosal thickening of the paranasal sinuses. No signal abnormalities within the mastoids. Cervical Spine: Straightening of the normal cervical lordosis. Mild degenerative retrolisthesis of C5 on C6. Otherwise, normal anatomic alignment. Moderate degenerative disc disease from C4-C7. Mild degenerative disc disease at all additional cervical levels. Associated mixed Modic type discogenic endplate changes including minimal Modic type I discogenic edema at C3-C4 and C4-C5. Mild marrow edema within the posterior elements of C6-T1 consistent with degenerative stress reaction. No additional suspicious marrow edema. The vertebral body heights are largely maintained. No epidural collection. There is a confluent region of T2 hyperintensity and enhancement within the right lateral/dorsal spinal cord at the levels of C1-C2 (2 cm in craniocaudal dimension). No overt underlying mass effect related to this lesion. Partially visualized restricted diffusion associated with this lesion on DWI of the head. No additional spinal cord signal abnormalities. Limited evaluation of the soft tissues of the neck without demonstrated abnormalities. The flow voids of the major cervical vessels are maintained. Normal appearance of the cervicomedullary junction and visualized posterior fossa. SPINAL LEVELS: C2-C3: Mild disc-osteophyte complex. There is mild bilateral uncovertebral joint arthropathy. There is moderate right worse than left facet joint arthropathy. There is no neural foraminal stenosis. There is no spinal canal stenosis. C3-C4: Mild disc-osteophyte complex eccentric to the left. There is moderate left worse than right uncovertebral joint arthropathy. There is moderate bilateral facet joint arthropathy. There is moderate bilateral neural foraminal stenosis. There is no spinal canal stenosis. C4-C5: Moderate disc-osteophyte complex. There is severe left and moderate right uncovertebral joint arthropathy. There is moderate left and mild right facet joint arthropathy. There is moderate left and mild right neural foraminal stenosis. There is mild spinal canal stenosis. C5-C6: Prominent disc-osteophyte complex eccentric to the right. There is severe bilateral uncovertebral joint arthropathy. There is moderate left and mild right facet joint arthropathy. There is severe left and moderate right neural foraminal stenosis. There is moderate spinal canal stenosis. C6-C7: Mild disc-osteophyte complex. There is moderate left and mild right uncovertebral joint arthropathy. There is moderate bilateral facet joint arthropathy. There is moderate left worse than right neural foraminal stenosis. There is no spinal canal stenosis. C7-T1: Normal annular contour. There is mild left and no right uncovertebral joint arthropathy. There is mild bilateral facet joint arthropathy. There is no neural foraminal stenosis. There is no spinal canal stenosis. MR/MR cervical spine wo/w con IMPRESSION: 1. There is a confluent T2 hyperintense and enhancing lesion within the right lateral/dorsal spinal cord at the levels of C1-C2. No additional spinal cord signal abnormalities. This appearance is somewhat nonspecific and could represent sequela of an inflammatory/demyelinating insult, an infectious etiology, or an ischemic insult. 2. No acute intracranial abnormalities. No abnormal intracranial enhancement. 3. Mild underlying microangiopathy. 4. Symmetric T2 hyperintensity and susceptibility artifact within the bilateral globus pallidi is nonspecific but may be seen in the setting of various metabolic deposition disorders including neurodegeneration with brain iron accumulation (NBIA). 5. Moderate multilevel degenerative spinal arthropathy of the cervical spine as described in detail above. Most notably, there is moderate spinal canal stenosis at C5-C6. Mild spinal canal stenosis at C4-C5. Moderate to severe neural foraminal stenoses from C3-C7.
[2022-02-10 13:10] VITALS: BP 149/87; PULSE 59; RESP 16; TEMP 36.2; O2SAT 97; BMI 31.8
[2022-02-10 15:22] VITALS: BP 154/91; PULSE 60; RESP 24; TEMP 36.7; O2SAT 99
--- NOTE | 2022-02-10 15:29 | PC.NURSE ---
provider called to bedside for further eval. Pt with possible hemiparesis
--- NOTE | 2022-02-10 15:35 | ECG_ITS ---
Test Reason : ekg Blood Pressure : / mmHG Vent. Rate : 053 BPM Atrial Rate : 053 BPM P-R Int : 122 ms QRS Dur : 092 ms QT Int : 458 ms P-R-T Axes : 057 000 -03 degrees QTc Int : 429 ms Sinus bradycardia with sinus arrhythmia Possible Left atrial enlargement Borderline ECG When compared with ECG of 06-FEB-2022 13:24, No significant change was found Referred By: John Liu Electronically Signed By:Luther Pat
--- NOTE | 2022-02-10 15:40 | ED.EXTPRO ---
HPI - Extremity Problem General Chief complaint: Extremity Problem <Nia Arce NP - Last Filed: 02/10/22 19:36> Stated complaint: R leg numb/neck and shoulder pain <Nia Arce NP - Last Filed: 02/10/22 19:36> Time Seen by Provider: 02/10/22 13:08 <Nia Arce NP - Last Filed: 02/10/22 19:36> Source: patient <Nia Arce NP - Last Filed: 02/10/22 19:36> Mode of arrival: ambulatory <Nia Arce NP - Last Filed: 02/10/22 19:36> Limitations: no limitations <Nia Arce NP - Last Filed: 02/10/22 19:36> History of Present Illness HPI Narrative: 51 yo male with history of OUD on suboxone, schizophrenia, hepatitis C-treated here with multiple complaints. Patient tells me he developed right sided neck/shoulder/chest pain on 02/03 with pain radiating down the right arm described as pain with numbness/tingling. He was seen in the ER 02/06 and had negative w/u which included EKG, CXR and lab work. At that time he had a documented normal neurological exam. He was diagnosed with cervical radiculopathy and discharged home on NSAID, prednisone and flexeril. When he woke up yesterday morning he noticed increase in pain down the right arm with decreased sensation and weakness with numbness in his entire right leg. He denies any injury or fall. Says he has continued pain from right side of neck/anterior upper right chest wall down right side of abdomen into leg with decreased sensation. He denies cough, fever, shortness of breath, vomiting, diarrhea, vision changes, urinary changes or incontinence or back pain. H/o IVDA ( many years ago). did slip up and use crack cocaine 3 months ago. <Nia Arce NP - Last Filed: 02/10/22 19:36> Related Data Home medications: Home Medications Medication Instructions Recorded Confirmed oxcarbazepine 600 mg tablet 600 mg PO BID 07/05/21 02/10/22 perphenazine 8 mg tablet 8 mg PO BEDTIME 07/05/21 02/10/22 buprenorphine 4 mg-naloxone 1 mg 0.5 film SUBLINGUAL DAILY@1700 02/10/22 02/10/22 sublingual film (Suboxone) Previous Rx's Medication Instructions Recorded benztropine 0.5 mg tablet 0.5 mg PO BID@0830,2100 30 Days 07/15/20 #60 tab buprenorphine 8 mg-naloxone 2 mg 1 film SUBLINGUAL DAILY 5 Days ea 07/15/20 sublingual film (Suboxone) naproxen 500 mg tablet 500 mg PO BID PRN #20 tab 02/06/22 prednisone 20 mg tablet 40 mg PO DAILY #10 tab 02/06/22 <Nia Arce NP - Last Filed: 02/10/22 19:36> Allergies/Adverse reactions: Allergies Allergy/AdvReac Type Severity Reaction Status Date / Time haloperidol [From HALDOL] Allergy Intermediate UNKNOWN Verified 08/05/21 13:57 <Nia Arce NP - Last Filed: 02/10/22 19:36> Review of Systems Review of Systems: Yes all other systems are reviewed and are negative <Nia Arce NP - Last Filed: 02/10/22 19:36> Constitutional: Constitutional: Reports no additional constitutional complaints, Denies body ache(s), Denies chills, Denies fever(s), Denies headache(s) and Reports weakness <NICOLETTE Horton Last Filed: 02/10/22 19:36> Eyes: Eyes: Reports no additional eye complaints and Denies change in vision <Nia Arce NP - Last Filed: 02/10/22 19:36> ENT: Reports system reviewed and no additional complaints, except as documented, Denies dizziness, Denies headache(s), Denies nasal congestion, Denies nasal discharge and Reports neck pain <NICOLETTE Horton Last Filed: 02/10/22 19:36> Cardiovascular: Cardiovascular: Reports no additional cardiovascular complaints, Reports chest pain, Denies leg edema and Denies dyspnea <NICOLETTE Horton Last Filed: 02/10/22 19:36> Respiratory: Respiratory: Reports no additional respiratory complaints, Denies cough and Denies dyspnea <Nia Arce NP - Last Filed: 02/10/22 19:36> Gastrointestinal: Gastrointestinal: Reports no additional gastrointestinal complaints, Denies abdominal pain, Denies diarrhea, Denies nausea and Denies vomiting <Nia Arce NP - Last Filed: 02/10/22 19:36> Genitourinary: Genitourinary: Denies urinary incontinence <Nia Arce NP - Last Filed: 02/10/22 19:36> Musculoskeletal: Musculoskeletal: Reports no additional musculoskeletal complaints, Denies back pain, Denies arthralgias, Denies joint swelling, Reports neck pain, Denies numbness and Reports tingling <Nia Arce NP - Last Filed: 02/10/22 19:36> Integumentary/Breasts: Skin/Breast: Reports system reviewed and no additional complaints, except as docu and Denies rash <Nia Arce NP - Last Filed: 02/10/22 19:36> Neurologic: Reports system reviewed and no additional complaints, except as documented, Denies Abnormal speech present, Denies dizziness, Denies headache(s), Denies numbness, Reports tingling and Reports weakness <Nia Arce NP - Last Filed: 02/10/22 19:36> [facility] Past Medical History Attestation statement: The following information was validated with the patient. <Nia Arce NP - Last Filed: 02/10/22 19:36> Source: old records reviewed and nursing notes reviewed <Nia Arce NP - Last Filed: 02/10/22 19:36> Medical History: Medical History Psychosis Schizophrenia Substance abuse <Nia Arce NP - Last Filed: 02/10/22 19:36> Surgical History: Surgical History History of liver biopsy <Nia Arce NP - Last Filed: 02/10/22 19:36> Family History Family History: Family History Father Medical history unknown Mother Medical history unknown <Nia Arce NP - Last Filed: 02/10/22 19:36> Social History Social History: Social History Housing: Apartment Patient Tobacco Use Status: Current everyday Tobacco user Tobacco use type: Cigarette Cigarettes Per Day: 20 e-Cigarette/Vaping Use: Never Used Second Hand Smoke Exposure: No Advance Directives: No Advance Directives Information Provided: No service: No Current occupational status: disabled Cognitive needs: No Hearing needs: No Vision needs: No <Nia Arce NP - Last Filed: 02/10/22 19:36> Physical Exam Vital Signs: Vital Signs: Last Vital Signs Temp 98.5 F 02/10/22 18:24 Pulse 57 02/10/22 18:24 Resp 13 02/10/22 18:24 BP 148/93 H 02/10/22 18:24 Pulse Ox 98 02/10/22 18:24 BMI result Body Mass Index 31.8 <Nia Arce NP - Last Filed: 02/10/22 19:36> Vital Signs: Last Vital Signs Temp 98.5 F 02/10/22 18:24 Pulse 57 02/10/22 18:24 Resp 13 02/10/22 18:24 BP 148/93 H 02/10/22 18:24 Pulse Ox 98 02/10/22 18:24 BMI result Body Mass Index 31.8 <EFRAIN Cintron - Last Filed: 02/10/22 22:48> Const: General: cooperative, healthy appearing, comfortable, no acute distress and other (disheveled ) <Nia Arce NP - Last Filed: 02/10/22 19:36> Orientation/consciousness: patient oriented x3 <Nia Arce NP - Last Filed: 02/10/22 19:36> Limitations: no limitations <Nia Arce NP - Last Filed: 02/10/22 19:36> HEENT: Head: Yes normal to inspection <Nia Arce NP - Last Filed: 02/10/22 19:36> Ears: hearing grossly normal bilaterally and TM's normal bilaterally <Nia Arce NP - Last Filed: 02/10/22 19:36> General nose exam: Normal external nose present <Nia Arce NP - Last Filed: 02/10/22 19:36> Face and sinus: Yes normal facial exam <Nia Arce NP - Last Filed: 02/10/22 19:36> Mouth: Normal oral and palatal mucosa present <Nia Arce NP - Last Filed: 02/10/22 19:36> Teeth and gingiva: caries <Nia Arce NP - Last Filed: 02/10/22 19:36> Throat: Yes posterior oropharynx normal, Yes tonsils normal and Yes uvula midline <Nia Arce NP - Last Filed: 02/10/22 19:36> Eyes: General: appearance normal, both eyes and all related structures <Nia Arce NP - Last Filed: 02/10/22 19:36> Visual Duran: normal visual duran by confrontation <Nia Arce NP - Last Filed: 02/10/22 19:36> Alignment and Position: alignment normal <Nia Arce NP - Last Filed: 02/10/22 19:36> Periorbital: periorbital findings normal <Nia Arce NP - Last Filed: 02/10/22 19:36> Eyelids: Yes eyelids normal <Nia Arce NP - Last Filed: 02/10/22 19:36> Conjunctivae: conjunctivae normal <Nia Arce NP - Last Filed: 02/10/22 19:36> Sclerae: sclerae normal <Nia Arce NP - Last Filed: 02/10/22 19:36> Corneas: corneas normal <Nia Arce NP - Last Filed: 02/10/22 19:36> Pupils: Equal, round and reactive pupils present <Nia Arce NP - Last Filed: 02/10/22 19:36> EOM: EOMs intact bilaterally <Nia Arce NP - Last Filed: 02/10/22 19:36> Direct Ophthalmoscopy: normal light reflex and no photophobia <Nia Arce NP - Last Filed: 02/10/22 19:36> Neck: Other: NO cervical midline tenderness Has tenderness to right trapezius area/superior shoulder and right upper anterior chest wall which is worsened with palpation, movement of the right arm <Nia Arce NP - Last Filed: 02/10/22 19:36> Neck: Yes normal visual inspection, Yes full ROM, Yes no lymphadenopathy and Yes no meningeal signs <Nia Arce NP - Last Filed: 02/10/22 19:36> Chest: Chest palpation & inspection: normal inspection of the chest and tenderness (right upper anterior chest wall) <Nia Arce NP - Last Filed: 02/10/22 19:36> Resp: Effort & Inspection: normal respiratory effort <Nia Arce NP - Last Filed: 02/10/22 19:36> Auscultation: clear to auscultation bilaterally <Nia Arce NP - Last Filed: 02/10/22 19:36> Cardio: Rate: regular rate <Nia Arce NP - Last Filed: 02/10/22 19:36> Rhythm: regular rhythm <Nia Arce NP - Last Filed: 02/10/22 19:36> Peripheral pulses: Peripheral pulses 2+ throughout <Nia Arce NP - Last Filed: 02/10/22 19:36> GI: Inspection: Yes normal to inspection <Nia Arce NP - Last Filed: 02/10/22 19:36> Palpation (GI): Soft to palpation and nontender <Nia Arce NP - Last Filed: 02/10/22 19:36> Auscultation: normal bowel sounds <Nia Arce NP - Last Filed: 02/10/22 19:36> Back/Spine/Pelvis: Thoracic/Lumbar Spine: thoracic and lumbar spine normal to inspection <Nia Arce NP - Last Filed: 02/10/22 19:36> Skin: General skin exam: no rashes or lesions noted <Nia Arce NP - Last Filed: 02/10/22 19:36> Neuro: Other: LUE 5/5 strength-normal sensation LLE 5/5 strength-normal sensation RLE 4/5 strength-patient reports sensation is intact but duller. -when lifting the right leg patient screams in pain and points to his right hip and states he feels pain there when he performs a straight leg raise RUE 4/5 strength-patient reports sensation is intact but duller. -when testing strength patient reports pain in the entire right arm <Nia Arce NP - Last Filed: 02/10/22 19:36> General: patient oriented x3 and no meningeal signs <Nia Arce NP - Last Filed: 02/10/22 19:36> Cranial nerves: Yes CN's II-XII intact bilaterally, Yes Equal, round and reactive pupils present, Yes Bilaterally intact EOM present, Yes Nystagmus not present, Yes Normal facial strength present and Yes Midline tongue present <Nia Arce NP - Last Filed: 02/10/22 19:36> Cognition (Neuro): normal cognition <Nia Arce NP - Last Filed: 02/10/22 19:36> Speech: No Abnormal speech present <Nia Arce NP - Last Filed: 02/10/22 19:36> Gait exam (Neuro): Ataxic gait present <Nia Arce NP - Last Filed: 02/10/22 19:36> Deep tendon reflexes (DTR's): Right patellar reflex intensity grade: 2+ and Left patellar reflex intensity grade: 2+ <Nia Arce NP - Last Filed: 02/10/22 19:36> Coordination: other (unable to perform finger to nose right side) <Nia Arce NP - Last Filed: 02/10/22 19:36> Extrem: General: Yes normal to inspection, Yes no pedal edema and Yes no calf tenderness <Nia Arce NP - Last Filed: 02/10/22 19:36> NIH Stroke Scale Internal: Initial- Upon Arrival <Nia Arce NP - Last Filed: 02/10/22 19:36> Level of Consciousness: Alert <Nia Arce NP - Last Filed: 02/10/22 19:36> Level of Consciousness Questions: Answers both questions correctly <Nia Arce NP - Last Filed: 02/10/22 19:36> Level of Consciousness Commands: Performs both tasks correctly <Nia Arce NP - Last Filed: 02/10/22 19:36> Best Gaze: Normal <Nia Arce NP - Last Filed: 02/10/22 19:36> Visual: No visual loss <Nia Arce NP - Last Filed: 02/10/22 19:36> Facial Palsy: Normal <Nia Arce NP - Last Filed: 02/10/22 19:36> Motor Arm (Right): Drift <Nia Arce NP - Last Filed: 02/10/22 19:36> Motor Arm (Left): No drift <Nia Arce NP - Last Filed: 02/10/22 19:36> Motor Leg (Right): Drift <Nia Arce NP - Last Filed: 02/10/22 19:36> Motor Leg (Left): No drift <Nia Arce NP - Last Filed: 02/10/22 19:36> Limb Ataxia: Present in one limb <Nia Arce NP - Last Filed: 02/10/22 19:36> Sensory: Mild to moderate sensory loss <Nia Arce NP - Last Filed: 02/10/22 19:36> Best Language: No aphasia <Nia Arce NP - Last Filed: 02/10/22 19:36> Dysarthia: Normal <Nia Arce NP - Last Filed: 02/10/22 19:36> Extinction and Inattention: No abnormality <Nia Arce NP - Last Filed: 02/10/22 19:36> Score: 4 <Nia Arce NP - Last Filed: 02/10/22 19:36> 4 <EFRAIN Cintron - Last Filed: 02/10/22 22:48> Course Course Course Narrative: 51 yo male here with right arm numbness/pain/weakness, right leg numbness with waking yesterday morning. Also c/o of continued right sided neck pain/anterior chest wall pain radiating down right arm x7 days with negative cardiac w/u here on 02/03. NIH 4. Patient not a TPA candidate d/t length of symptoms. Consider CVA, d/t IVDA brain abscess/paraspinal abscess cervical spine. Therefore will collect labs, CXR, EKG, UA This case was discussed with Dr Figueroa -Reviewed previous visits/notes. Patient [facility]y ([facility]) for ataxia, memory loss in 2019. Notes unavailable. Had MRI and EEG then. MRI shows T2 hyperintensity within the bilateral globi pallidi. <Nia Arce NP - Last Filed: 02/10/22 19:36> Reevaluation(s) Reevaluation #1: CT head IMPRESSION: No acute intracranial finding. There is symmetric hypoattenuation within the globus pallidus bilaterally. These findings coincide with the abnormality depicted on MR imaging of the brain from 07/22/2020. -Labs show leukocytosis, CRP 0.76. ESR pending. Additional labs unremarkable. Again case was discussed with Dr Figueroa. D/t history of IVDA consider epidural abscess in cervical spine, additionally concerned for acute CVA so will order MRI brain/cervical spine w/ and w/o contrast. Patient aware he will be admitted. At this time infection is suspected. Antibiotics ordered <Nia Arce NP - Last Filed: 02/10/22 19:36> Time: 17:30 <Nia Arce NP - Last Filed: 02/10/22 19:36> Reevaluation #2: Nursing told me patient's arm weakness if improved. I went to re-evaluate the patient and weakness appears somewhat improved although sensation unchanged. Seems atypical for TIA. MRI is pending <Nia Arce NP - Last Filed: 02/10/22 19:36> Time: 18:48 <Nia Arce NP - Last Filed: 02/10/22 19:36> Reevaluation #3: This patient was evaluated during a time of global shortage of iodinated contrast media. Based on guidance from the [employer], best practices, and local institutional approaches an alternative path for evaluating and managing the patient may have been employed in order to provide optimal care during this shortage. The current situation has been discussed the the patient. <Nia Arce NP - Last Filed: 02/10/22 19:36> Time: 19:30 <Nia Arce NP - Last Filed: 02/10/22 19:36> Additional Reevaluation(s): I did discuss the case with medicine Dr Helms who will accept admission pending MRI results. If acute CVA will admit. If epidural abscess will need transfer. He is requesting I speak to neurology. Sign out to Fara ZUNIGA pending MRI results and disposition. <Nia Arce NP - Last Filed: 02/10/22 19:36> Consultations Consultation #1: Neurology-I did speak to neurology (dr Chairez). No additional recommendations over the phone. They are aware patient is here and will follow if necessary. <Nia Arce NP - Last Filed: 02/10/22 19:36> Time: 19:30 <Nia Arce NP - Last Filed: 02/10/22 19:36> Consultation #2: Spoke to Dr. Chairez who tells me that his MRI of the cervical spine is concerning for spinal cord lesion he asked for me to call centers with neurosurgery for consult to see if they will accept this patient, if not patient can stay in house. Will reach out to [facility]. He also recommends Solu-Medrol 1,000 mg which will be ordered at this time. Call out to [facility] at this time. <EFRAIN Cintron - Last Filed: 02/10/22 22:48> Time: 21:54 <EFRAIN Cintron - Last Filed: 02/10/22 22:48> Consultation #3: [facility] neurosurgery closed to transfer. Will speak to hospitalist for admission. <EFRAIN Cintron - Last Filed: 02/10/22 22:48> Time: 22:20 <EFRAIN Cintron - Last Filed: 02/10/22 22:48> Additional Consultation(s): Hospitalist will take this patient <EFRAIN Cintron - Last Filed: 02/10/22 22:48> MDM - Extremity (Nontraumatic) MDM Narrative Medical decision making narrative: cva, brain abscess/paraspinal abscess <Nia Arce NP - Last Filed: 02/10/22 19:36> Medical Records Attestation: I reviewed the patient's medical records. <Nia Arce NP - Last Filed: 02/10/22 19:36> Lab Data Attestation: I reviewed the patient's lab results. <Nia Arce NP - Last Filed: 02/10/22 19:36> Result diagrams: : 02/10/22 15:43 02/10/22 17:02 <Nia Arce NP - Last Filed: 02/10/22 19:36> Labs: Lab Results 02/10/22 02/10/22 02/10/22 Range/Units 15:43 15:43 15:43 WBC 16.7 H (4.8-10.8) X10*3/uL RBC 5.17 (4.60-5.80) X10*6/uL Hgb 16.6 (14.0-18.0) g/dl Hct 48.1 (42.0-52.0) % MCV 93.0 (80.0-98.0) fL MCH 32.1 (27.0-33.0) pg MCHC 34.5 (31.0-36.0) g/dl RDW 13.6 (11.0-16.0) % Plt Count 236 (160-400) X10*3/uL MPV 9.9 (9.4-12.4) fL Immature Gran % (Auto) 0.3 (0.0-0.4) % Neut % (Auto) 69.9 (45-73) % Lymph % (Auto) 20.9 (20-40) % [place] % (Auto) 8.3 (2-11) % Eos % (Auto) 0.4 (0-4) % Baso % (Auto) 0.2 (0-2) % Lymph # (Auto) 3.5 (1.2-4.9) X10*3/uL [place] # (Auto) 1.4 H (0.1-1.2) X10*3/uL Eos # (Auto) 0.1 (0.0-0.4) X10*3/uL Baso # (Auto) 0.0 (0.0-0.2) X10*3/uL Abs Immat Gran (auto) 0.05 H (0.00-0.03) X10*3/uL Absolute Neuts (auto) 11.7 H (2.0-8.3) x10*3/uL Absolute Nucleated RBC 0.000 (0.0-0.012) X10*3/uL Nucleated RBC % (auto) 0.0 (0.0-0.2) /100WBC ESR (0-15) MM/HR PT 11.5 (9.9-13.0) SEC INR 1.0 (0.9-1.1) Sodium (135-145) mmol/L Potassium (3.3-5.1) mmol/L Chloride (96-108) mmol/L Carbon Dioxide (22-29) mmol/L Anion Gap (12-20) BUN (9-16) mg/dL Creatinine (0.5-1.4) mg/dL Estim Creat Clear Calc Estimated GFR Random Glucose (60-115) mg/dL Lactic Acid (0.5-2.0) mmol/L Calcium (8.4-10.2) mg/dL Magnesium (1.6-2.6) mg/dL Total Bilirubin (0.0-1.0) mg/dL Direct Bilirubin (0.0-0.5) mg/dL AST (5-37) U/L ALT (0-40) U/L Alkaline Phosphatase (39-117) U/L Total Creatine Kinase (38-174) U/L Troponin I High Sens < 3.5 (<3.5-35.0) ng/L C-Reactive Protein (< or = 0.50) mg/dL Total Protein (6.5-8.0) g/dL Albumin (3.5-5.0) g/dL Urine Color Urine Appearance Urine pH (5.0-8.0) Ur Specific [place] (1.005-1.025) Urine Protein (NEG-TRACE) MG/DL Urine Glucose (UA) (NEG) MG/DL Urine Ketones (NEG) MG/DL Urine Blood (NEG) Urine Nitrite (NEG) Ur Leukocyte Esterase (NEG) Urine RBC (0) /HPF Urine WBC (0-4) /HPF Ur Squamous Epith Cells /LPF Urine Bacteria /LPF Urine Opiates Screen (Not Detect) Urine Fentanyl Screen (Not Detect) Ur Barbiturates Screen (Not Detect) Ur Phencyclidine Scrn (Not Detect) Ur Amphetamines Screen (Not Detect) U Benzodiazepines Scrn (Not Detect) Urine Cocaine Screen (Not Detect) U Marijuana (THC) Screen (Not Detect) COVID-19 (DILEEP) (Negative) COVID-19 Clin Com 02/10/22 02/10/22 02/10/22 Range/Units 16:40 17:02 17:02 WBC (4.8-10.8) X10*3/uL RBC (4.60-5.80) X10*6/uL Hgb (14.0-18.0) g/dl Hct (42.0-52.0) % MCV (80.0-98.0) fL MCH (27.0-33.0) pg MCHC (31.0-36.0) g/dl RDW (11.0-16.0) % Plt Count (160-400) X10*3/uL MPV (9.4-12.4) fL Immature Gran % (Auto) (0.0-0.4) % Neut % (Auto) (45-73) % Lymph % (Auto) (20-40) % [place] % (Auto) (2-11) % Eos % (Auto) (0-4) % Baso % (Auto) (0-2) % Lymph # (Auto) (1.2-4.9) X10*3/uL [place] # (Auto) (0.1-1.2) X10*3/uL Eos # (Auto) (0.0-0.4) X10*3/uL Baso # (Auto) (0.0-0.2) X10*3/uL Abs Immat Gran (auto) (0.00-0.03) X10*3/uL Absolute Neuts (auto) (2.0-8.3) x10*3/uL Absolute Nucleated RBC (0.0-0.012) X10*3/uL Nucleated RBC % (auto) (0.0-0.2) /100WBC ESR 6 (0-15) MM/HR PT (9.9-13.0) SEC INR (0.9-1.1) Sodium 141 (135-145) mmol/L Potassium 3.6 (3.3-5.1) mmol/L Chloride 106 (96-108) mmol/L Carbon Dioxide 25 (22-29) mmol/L Anion Gap 14 (12-20) BUN 15 D (9-16) mg/dL Creatinine 1.10 (0.5-1.4) mg/dL Estim Creat Clear Calc 76.7 Estimated GFR > 60 Random Glucose 87 (60-115) mg/dL Lactic Acid (0.5-2.0) mmol/L Calcium 9.4 (8.4-10.2) mg/dL Magnesium 2.2 (1.6-2.6) mg/dL Total Bilirubin 0.5 (0.0-1.0) mg/dL Direct Bilirubin 0.2 (0.0-0.5) mg/dL AST 19 (5-37) U/L ALT 17 (0-40) U/L Alkaline Phosphatase 45 (39-117) U/L Total Creatine Kinase 116 (38-174) U/L Troponin I High Sens (<3.5-35.0) ng/L C-Reactive Protein 0.76 H (< or = 0.50) mg/dL Total Protein 7.2 (6.5-8.0) g/dL Albumin 4.1 (3.5-5.0) g/dL Urine Color Urine Appearance Urine pH (5.0-8.0) Ur Specific [place] (1.005-1.025) Urine Protein (NEG-TRACE) MG/DL Urine Glucose (UA) (NEG) MG/DL Urine Ketones (NEG) MG/DL Urine Blood (NEG) Urine Nitrite (NEG) Ur Leukocyte Esterase (NEG) Urine RBC (0) /HPF Urine WBC (0-4) /HPF Ur Squamous Epith Cells /LPF Urine Bacteria /LPF Urine Opiates Screen (Not Detect) Urine Fentanyl Screen (Not Detect) Ur Barbiturates Screen (Not Detect) Ur Phencyclidine Scrn (Not Detect) Ur Amphetamines Screen (Not Detect) U Benzodiazepines Scrn (Not Detect) Urine Cocaine Screen (Not Detect) U Marijuana (THC) Screen (Not Detect) COVID-19 (DILEEP) Negative (Negative) COVID-19 Clin Com See Note 02/10/22 02/10/22 02/10/22 Range/Units 17:02 18:31 18:31 WBC (4.8-10.8) X10*3/uL RBC (4.60-5.80) X10*6/uL Hgb (14.0-18.0) g/dl Hct (42.0-52.0) % MCV (80.0-98.0) fL MCH (27.0-33.0) pg MCHC (31.0-36.0) g/dl RDW (11.0-16.0) % Plt Count (160-400) X10*3/uL MPV (9.4-12.4) fL Immature Gran % (Auto) (0.0-0.4) % Neut % (Auto) (45-73) % Lymph % (Auto) (20-40) % [place] % (Auto) (2-11) % Eos % (Auto) (0-4) % Baso % (Auto) (0-2) % Lymph # (Auto) (1.2-4.9) X10*3/uL [place] # (Auto) (0.1-1.2) X10*3/uL Eos # (Auto) (0.0-0.4) X10*3/uL Baso # (Auto) (0.0-0.2) X10*3/uL Abs Immat Gran (auto) (0.00-0.03) X10*3/uL Absolute Neuts (auto) (2.0-8.3) x10*3/uL Absolute Nucleated RBC (0.0-0.012) X10*3/uL Nucleated RBC % (auto) (0.0-0.2) /100WBC ESR (0-15) MM/HR PT (9.9-13.0) SEC INR (0.9-1.1) Sodium (135-145) mmol/L Potassium (3.3-5.1) mmol/L Chloride (96-108) mmol/L Carbon Dioxide (22-29) mmol/L Anion Gap (12-20) BUN (9-16) mg/dL Creatinine (0.5-1.4) mg/dL Estim Creat Clear Calc Estimated GFR Random Glucose (60-115) mg/dL Lactic Acid 1.3 (0.5-2.0) mmol/L Calcium (8.4-10.2) mg/dL Magnesium (1.6-2.6) mg/dL Total Bilirubin (0.0-1.0) mg/dL Direct Bilirubin (0.0-0.5) mg/dL AST (5-37) U/L ALT (0-40) U/L Alkaline Phosphatase (39-117) U/L Total Creatine Kinase (38-174) U/L Troponin I High Sens (<3.5-35.0) ng/L C-Reactive Protein (< or = 0.50) mg/dL Total Protein (6.5-8.0) g/dL Albumin (3.5-5.0) g/dL Urine Color YELLOW Urine Appearance CLEAR Urine pH 6.0 (5.0-8.0) Ur Specific [place] 1.010 (1.005-1.025) Urine Protein 2+ H (NEG-TRACE) MG/DL Urine Glucose (UA) NEG (NEG) MG/DL Urine Ketones NEG (NEG) MG/DL Urine Blood TRACE (NEG) Urine Nitrite NEG (NEG) Ur Leukocyte Esterase NEG (NEG) Urine RBC 1-4 (0) /HPF Urine WBC 0-2 (0-4) /HPF Ur Squamous Epith Cells NONE /LPF Urine Bacteria NONE /LPF Urine Opiates Screen Not Detected (Not Detect) Urine Fentanyl Screen Not Detected (Not Detect) Ur Barbiturates Screen Not Detected (Not Detect) Ur Phencyclidine Scrn Not Detected (Not Detect) Ur Amphetamines Screen Not Detected (Not Detect) U Benzodiazepines Scrn Not Detected (Not Detect) Urine Cocaine Screen Not Detected (Not Detect) U Marijuana (THC) Screen POSITIVE H (Not Detect) COVID-19 (DILEEP) (Negative) COVID-19 Clin Com <Nia Arce, HEALTHCARE MANAGER - Last Filed: 02/10/22 19:36> Lab Results 02/10/22 02/10/22 02/10/22 Range/Units 15:43 15:43 15:43 WBC 16.7 H (4.8-10.8) X10*3/uL RBC 5.17 (4.60-5.80) X10*6/uL Hgb 16.6 (14.0-18.0) g/dl Hct 48.1 (42.0-52.0) % MCV 93.0 (80.0-98.0) fL MCH 32.1 (27.0-33.0) pg MCHC 34.5 (31.0-36.0) g/dl RDW 13.6 (11.0-16.0) % Plt Count 236 (160-400) X10*3/uL MPV 9.9 (9.4-12.4) fL Immature Gran % (Auto) 0.3 (0.0-0.4) % Neut % (Auto) 69.9 (45-73) % Lymph % (Auto) 20.9 (20-40) % [place] % (Auto) 8.3 (2-11) % Eos % (Auto) 0.4 (0-4) % Baso % (Auto) 0.2 (0-2) % Lymph # (Auto) 3.5 (1.2-4.9) X10*3/uL [place] # (Auto) 1.4 H (0.1-1.2) X10*3/uL Eos # (Auto) 0.1 (0.0-0.4) X10*3/uL Baso # (Auto) 0.0 (0.0-0.2) X10*3/uL Abs Immat Gran (auto) 0.05 H (0.00-0.03) X10*3/uL Absolute Neuts (auto) 11.7 H (2.0-8.3) x10*3/uL Absolute Nucleated RBC 0.000 (0.0-0.012) X10*3/uL Nucleated RBC % (auto) 0.0 (0.0-0.2) /100WBC ESR (0-15) MM/HR PT 11.5 (9.9-13.0) SEC INR 1.0 (0.9-1.1) Sodium (135-145) mmol/L Potassium (3.3-5.1) mmol/L Chloride (96-108) mmol/L Carbon Dioxide (22-29) mmol/L Anion Gap (12-20) BUN (9-16) mg/dL Creatinine (0.5-1.4) mg/dL Estim Creat Clear Calc Estimated GFR Random Glucose (60-115) mg/dL Lactic Acid (0.5-2.0) mmol/L Calcium (8.4-10.2) mg/dL Magnesium (1.6-2.6) mg/dL Total Bilirubin (0.0-1.0) mg/dL Direct Bilirubin (0.0-0.5) mg/dL AST (5-37) U/L ALT (0-40) U/L Alkaline Phosphatase (39-117) U/L Total Creatine Kinase (38-174) U/L Troponin I High Sens < 3.5 (<3.5-35.0) ng/L C-Reactive Protein (< or = 0.50) mg/dL Total Protein (6.5-8.0) g/dL Albumin (3.5-5.0) g/dL Urine Color Urine Appearance Urine pH (5.0-8.0) Ur Specific [place] (1.005-1.025) Urine Protein (NEG-TRACE) MG/DL Urine Glucose (UA) (NEG) MG/DL Urine Ketones (NEG) MG/DL Urine Blood (NEG) Urine Nitrite (NEG) Ur Leukocyte Esterase (NEG) Urine RBC (0) /HPF Urine WBC (0-4) /HPF Ur Squamous Epith Cells /LPF Urine Bacteria /LPF Urine Opiates Screen (Not Detect) Urine Fentanyl Screen (Not Detect) Ur Barbiturates Screen (Not Detect) Ur Phencyclidine Scrn (Not Detect) Ur Amphetamines Screen (Not Detect) U Benzodiazepines Scrn (Not Detect) Urine Cocaine Screen (Not Detect) U Marijuana (THC) Screen (Not Detect) COVID-19 (DILEEP) (Negative) COVID-19 Clin Com 02/10/22 02/10/22 02/10/22 Range/Units 16:40 17:02 17:02 WBC (4.8-10.8) X10*3/uL RBC (4.60-5.80) X10*6/uL Hgb (14.0-18.0) g/dl Hct (42.0-52.0) % MCV (80.0-98.0) fL MCH (27.0-33.0) pg MCHC (31.0-36.0) g/dl RDW (11.0-16.0) % Plt Count (160-400) X10*3/uL MPV (9.4-12.4) fL Immature Gran % (Auto) (0.0-0.4) % Neut % (Auto) (45-73) % Lymph % (Auto) (20-40) % [place] % (Auto) (2-11) % Eos % (Auto) (0-4) % Baso % (Auto) (0-2) % Lymph # (Auto) (1.2-4.9) X10*3/uL [place] # (Auto) (0.1-1.2) X10*3/uL Eos # (Auto) (0.0-0.4) X10*3/uL Baso # (Auto) (0.0-0.2) X10*3/uL Abs Immat Gran (auto) (0.00-0.03) X10*3/uL Absolute Neuts (auto) (2.0-8.3) x10*3/uL Absolute Nucleated RBC (0.0-0.012) X10*3/uL Nucleated RBC % (auto) (0.0-0.2) /100WBC ESR 6 (0-15) MM/HR PT (9.9-13.0) SEC INR (0.9-1.1) Sodium 141 (135-145) mmol/L Potassium 3.6 (3.3-5.1) mmol/L Chloride 106 (96-108) mmol/L Carbon Dioxide 25 (22-29) mmol/L Anion Gap 14 (12-20) BUN 15 D (9-16) mg/dL Creatinine 1.10 (0.5-1.4) mg/dL Estim Creat Clear Calc 76.7 Estimated GFR > 60 Random Glucose 87 (60-115) mg/dL Lactic Acid (0.5-2.0) mmol/L Calcium 9.4 (8.4-10.2) mg/dL Magnesium 2.2 (1.6-2.6) mg/dL Total Bilirubin 0.5 (0.0-1.0) mg/dL Direct Bilirubin 0.2 (0.0-0.5) mg/dL AST 19 (5-37) U/L ALT 17 (0-40) U/L Alkaline Phosphatase 45 (39-117) U/L Total Creatine Kinase 116 (38-174) U/L Troponin I High Sens (<3.5-35.0) ng/L C-Reactive Protein 0.76 H (< or = 0.50) mg/dL Total Protein 7.2 (6.5-8.0) g/dL Albumin 4.1 (3.5-5.0) g/dL Urine Color Urine Appearance Urine pH (5.0-8.0) Ur Specific [place] (1.005-1.025) Urine Protein (NEG-TRACE) MG/DL Urine Glucose (UA) (NEG) MG/DL Urine Ketones (NEG) MG/DL Urine Blood (NEG) Urine Nitrite (NEG) Ur Leukocyte Esterase (NEG) Urine RBC (0) /HPF Urine WBC (0-4) /HPF Ur Squamous Epith Cells /LPF Urine Bacteria /LPF Urine Opiates Screen (Not Detect) Urine Fentanyl Screen (Not Detect) Ur Barbiturates Screen (Not Detect) Ur Phencyclidine Scrn (Not Detect) Ur Amphetamines Screen (Not Detect) U Benzodiazepines Scrn (Not Detect) Urine Cocaine Screen (Not Detect) U Marijuana (THC) Screen (Not Detect) COVID-19 (DILEEP) Negative (Negative) COVID-19 Clin Com See Note 02/10/22 02/10/22 02/10/22 Range/Units 17:02 18:31 18:31 WBC (4.8-10.8) X10*3/uL RBC (4.60-5.80) X10*6/uL Hgb (14.0-18.0) g/dl Hct (42.0-52.0) % MCV (80.0-98.0) fL MCH (27.0-33.0) pg MCHC (31.0-36.0) g/dl RDW (11.0-16.0) % Plt Count (160-400) X10*3/uL MPV (9.4-12.4) fL Immature Gran % (Auto) (0.0-0.4) % Neut % (Auto) (45-73) % Lymph % (Auto) (20-40) % [place] % (Auto) (2-11) % Eos % (Auto) (0-4) % Baso % (Auto) (0-2) % Lymph # (Auto) (1.2-4.9) X10*3/uL [place] # (Auto) (0.1-1.2) X10*3/uL Eos # (Auto) (0.0-0.4) X10*3/uL Baso # (Auto) (0.0-0.2) X10*3/uL Abs Immat Gran (auto) (0.00-0.03) X10*3/uL Absolute Neuts (auto) (2.0-8.3) x10*3/uL Absolute Nucleated RBC (0.0-0.012) X10*3/uL Nucleated RBC % (auto) (0.0-0.2) /100WBC ESR (0-15) MM/HR PT (9.9-13.0) SEC INR (0.9-1.1) Sodium (135-145) mmol/L Potassium (3.3-5.1) mmol/L Chloride (96-108) mmol/L Carbon Dioxide (22-29) mmol/L Anion Gap (12-20) BUN (9-16) mg/dL Creatinine (0.5-1.4) mg/dL Estim Creat Clear Calc Estimated GFR Random Glucose (60-115) mg/dL Lactic Acid 1.3 (0.5-2.0) mmol/L Calcium (8.4-10.2) mg/dL Magnesium (1.6-2.6) mg/dL Total Bilirubin (0.0-1.0) mg/dL Direct Bilirubin (0.0-0.5) mg/dL AST (5-37) U/L ALT (0-40) U/L Alkaline Phosphatase (39-117) U/L Total Creatine Kinase (38-174) U/L Troponin I High Sens (<3.5-35.0) ng/L C-Reactive Protein (< or = 0.50) mg/dL Total Protein (6.5-8.0) g/dL Albumin (3.5-5.0) g/dL Urine Color YELLOW Urine Appearance CLEAR Urine pH 6.0 (5.0-8.0) Ur Specific [place] 1.010 (1.005-1.025) Urine Protein 2+ H (NEG-TRACE) MG/DL Urine Glucose (UA) NEG (NEG) MG/DL Urine Ketones NEG (NEG) MG/DL Urine Blood TRACE (NEG) Urine Nitrite NEG (NEG) Ur Leukocyte Esterase NEG (NEG) Urine RBC 1-4 (0) /HPF Urine WBC 0-2 (0-4) /HPF Ur Squamous Epith Cells NONE /LPF Urine Bacteria NONE /LPF Urine Opiates Screen Not Detected (Not Detect) Urine Fentanyl Screen Not Detected (Not Detect) Ur Barbiturates Screen Not Detected (Not Detect) Ur Phencyclidine Scrn Not Detected (Not Detect) Ur Amphetamines Screen Not Detected (Not Detect) U Benzodiazepines Scrn Not Detected (Not Detect) Urine Cocaine Screen Not Detected (Not Detect) U Marijuana (THC) Screen POSITIVE H (Not Detect) COVID-19 (DILEEP) (Negative) COVID-19 Clin Com <EFRAIN Cintron - Last Filed: 02/10/22 22:48> Imaging Data Chest x-ray: Attestation: I personally reviewed and interpreted this imaging study as follows: <Nia Arce NP - Last Filed: 02/10/22 19:36> Radiologist's impression: EXAMINATION: XR CHEST CLINICAL INFORMATION: Right-sided chest pain COMPARISON: Previous chest x-ray January 2022 TECHNIQUE: Frontal view of the chest was obtained. FINDINGS: No significant abnormality is noted involving the heart, lungs, mediastinum, bony thorax or soft tissues. XR/XR chest 1V IMPRESSION: Unremarkable examination. ? <Nia Arce NP - Last Filed: 02/10/22 19:36> CT scan - head: Attestation: I personally reviewed and interpreted this imaging study as follows: <Nia Arce NP - Last Filed: 02/10/22 19:36> Radiologist's impression: FINDINGS: There is no acute intracranial hemorrhage or abnormal extra-axial collection. No intracranial mass effect or midline shift. Lateral and third ventricles are proportionate to the subarachnoid spaces. No hydrocephalus. There are symmetric foci of hypoattenuation within the globus pallidus bilaterally. [place]-white matter differentiation is otherwise preserved and there is no evidence of acute territorial infarct. The calvarium and skull base are intact. Mastoid air cells and middle ear cavities are well aerated. No active paranasal sinus disease. CT/CT head/brain wo con IMPRESSION: No acute intracranial finding. There is symmetric hypoattenuation within the globus pallidus bilaterally. These findings coincide with the abnormality depicted on MR imaging of the brain from 07/22/2020. <Nia Arce NP - Last Filed: 02/10/22 19:36> ECG Data Attestation EKG: I personally reviewed and interpreted this ECG as follows: <Nia Arce NP - Last Filed: 02/10/22 19:36> ECG interpretation date: 02/10/22 <Nia Arce NP - Last Filed: 02/10/22 19:36> ECG interpretation time: 15:45 <NICOLETTE Horton Last Filed: 02/10/22 19:36> Interpretation: SB with rate 53, normal pr, normal qrs, normal qt Non specific ST changes leads 3, avf <NICOLETTE Horton Last Filed: 02/10/22 19:36> Critical Care Time Critical Care Time Critical Care Time: Yes <EFRAIN Cintron - Last Filed: 02/10/22 22:48> Total Critical Care Time: 35 <EFRAIN Cintron - Last Filed: 02/10/22 22:48> Attestation: I attest to this time spent taking care of the patient, obtaining history, physical, reviewing labs, imaging, speaking to my attending, speaking to specialist. <EFRAIN Cintron Last Filed: 02/10/22 22:48> Discharge Plan Discharge Clinical Impression: Spinal cord lesion, Weakness, Leukocytosis <NICOLETTE Horton Last Filed: 02/10/22 19:36> Patient Disposition: Admitted As Inpatient <Nia Arce NP - Last Filed: 02/10/22 19:36>
[2022-02-10 15:51] LABS: MANUAL DIFF FLAG NO
[2022-02-10 15:52] LABS: Basophils Percent Auto 0.2 % (0-2); Eosinophils Absolute Auto 0.1 X10*3/uL (0.0-0.4); Eosinophils Percent Auto 0.4 % (0-4); Hematocrit 48.1 % (42.0-52.0); Hemoglobin 16.6 g/dl (14.0-18.0); Imm Gran Abs Auto 0.05 X10*3/uL (0.00-0.03); Imm Gran Pct Auto 0.3 % (0.0-0.4); Lymphocytes Absolute Auto 3.5 X10*3/uL (1.2-4.9); Lymphocytes Percent Auto 20.9 % (20-40); Mean Corpuscular HGB Conc 34.5 g/dl (31.0-36.0); Mean Corpuscular Hemoglobin 32.1 pg (27.0-33.0); Mean Platelet Volume 9.9 fL (9.4-12.4); Monocytes Absolute Auto 1.4 X10*3/uL (0.1-1.2); Monocytes Percent Auto 8.3 % (2-11); Neutrophils Absolute Auto 11.7 x10*3/uL (2.0-8.3); Neutrophils Percent Auto 69.9 % (45-73); Platelet Count 236 X10*3/uL (160-400); Red Blood Count 5.17 X10*6/uL (4.60-5.80); Red Cell Distribution Width 13.6 % (11.0-16.0); White Blood Count 16.7 X10*3/uL (4.8-10.8)
[2022-02-10 15:58] LABS: Prothrombin Time 11.5 SEC (9.9-13.0)
[2022-02-10 16:16] LABS: Troponin-I High Sensitivity < 3.5 ng/L (<3.5-35.0)
[2022-02-10 16:33] VITALS: BP 146/92; PULSE 64; RESP 20
[2022-02-10] MEDS: 0.9 % Sodium Chloride 1,000 ML 999 ML IV (16:44)
[2022-02-10 17:02] LABS: COVID-19 Test Negative (Negative)
[2022-02-10 17:18] LABS: Lactic Acid 1.3 mmol/L (0.5-2.0)
[2022-02-10 17:24] LABS: Alanine Aminotransferase 17 U/L (0-40); Albumin Level 4.1 g/dL (3.5-5.0); Alkaline Phosphatase 45 U/L (39-117); Anion Gap 14 (12-20); Aspartate Amino Transferase 19 U/L (5-37); Bilirubin Direct 0.2 mg/dL (0.0-0.5); Bilirubin Total 0.5 mg/dL (0.0-1.0); Blood Urea Nitrogen 15 mg/dL (9-16); C Reactive Protein 0.76 mg/dL (< or = 0.50); Calcium 9.4 mg/dL (8.4-10.2); Carbon Dioxide 25 mmol/L (22-29); Chloride 106 mmol/L (96-108); Creatinine Clr Calc Pharmacy 76.7; Estimated Glomerular Filt Rate > 60; Glucose Random 87 mg/dL (60-115); Magnesium 2.2 mg/dL (1.6-2.6); Potassium 3.6 mmol/L (3.3-5.1); Sodium 141 mmol/L (135-145); Total Protein 7.2 g/dL (6.5-8.0)
[2022-02-10 17:52] LABS: Erythrocyte Sedimentation Rate 6 MM/HR (0-15)
[2022-02-10 18:24] VITALS: BP 148/93; PULSE 57; RESP 13; TEMP 36.9; O2SAT 98
--- NOTE | 2022-02-10 18:26 | PHA.MEDREC ---
Pharmacy Consult ? Medication Reconciliation Pharmacy has completed the medication reconciliation. PATIENT TAKES 8MG SUBOXONE IN AM AND NOW 2 MG AT BEDTIME
[2022-02-10] MEDS: cefTRIAXone sodium 1 GM in 0.9 % Sodium Chloride 50 ML IV (18:28)
[2022-02-10 18:52] LABS: Appearance Urine CLEAR; Color Urine YELLOW; Glucose Urine UA NEG (NEG); Leukocyte Esterase Urine NEG (NEG); Nitrite Urine NEG (NEG); UACC Culture Trigger NO; Urine Blood TRACE (NEG); Urine Ketones NEG (NEG); Urine Protein 2+ MG/DL (NEG-TRACE)
[2022-02-10 19:04] LABS: Amphetamine Screen Urine Not Detected (Not Detect); Barbiturates, Urine Not Detected (Not Detect); Benzodiazepines Screen Urine Not Detected (Not Detect); Cannabinoid Screen Urine POSITIVE (Not Detect); Cocaine Screen Urine Not Detected (Not Detect); Fentanyl, urine Not Detected (Not Detect); Opiate Screen Urine Not Detected (Not Detect); Phencyclidine Screen Urine Not Detected (Not Detect)
[2022-02-10 19:32] LABS: WBC Urine 0-2 /HPF (0-4)
--- NOTE | 2022-02-10 20:24 | PC.NURSE ---
pt away for MRI, will medicate upon return.
--- NOTE | 2022-02-10 20:35 | PM.NEUROCN ---
History of Present Illness Data of Consult Service Date: 02/10/22 Primary Care Provider: DO SEDA Ibanez Reason for consult: Right-sided weakness and numbness 51 years old man with underlying history of drug abuse and hepatitis-C who came to hospital with few days history of right-sided numbness and weakness involving right arm shoulder and leg. He did not volunteer any such symptom on his face. There was some neck discomfort. There was no complaint of bowel bladder difficulties. There was no history of any recent trauma. Review of Systems Review of Systems: No recent cold or flu-like illness PMFSH Past Medical History Medical History Psychosis Schizophrenia Substance abuse Family History Family History Father Medical history unknown Mother Medical history unknown Surgical History Surgical History History of liver biopsy Social History Social History Housing: Apartment Patient Tobacco Use Status: Current everyday Tobacco user Tobacco use type: Cigarette Cigarettes Per Day: 20 e-Cigarette/Vaping Use: Never Used Second Hand Smoke Exposure: No Advance Directives: No Advance Directives Information Provided: No service: No Current occupational status: disabled Cognitive needs: No Hearing needs: No Vision needs: No Meds Allergies Allergy/AdvReac Type Severity Reaction Status Date / Time haloperidol [From HALDOL] Allergy Intermediate UNKNOWN Verified 08/05/21 13:57 Active Medications: Current Medications Pharmacy Consult (Consult Rx Perform Med Rec) 1 each MISCELLANE ONCE PRN PRN Reason: Consult order Home Medications Medication Instructions Recorded Confirmed Last Taken Type oxcarbazepine 600 mg tablet 600 mg PO BID 07/05/21 02/10/22 02/10/22 History perphenazine 8 mg tablet 8 mg PO BEDTIME 07/05/21 02/10/22 02/09/22 History buprenorphine 4 mg-naloxone 1 mg 0.5 film SUBLINGUAL DAILY@1700 02/10/22 02/10/22 02/09/22 History sublingual film (Suboxone) Physical Exam Vital Signs: Vital Signs: Last Vital Signs Temp 98.5 F 02/10/22 18:24 Pulse 57 02/10/22 18:24 Resp 13 02/10/22 18:24 BP 148/93 H 02/10/22 18:24 Pulse Ox 98 02/10/22 18:24 BMI result Body Mass Index 31.8 Neuro: Other: He was alert and awake with normal spontaneity of speech fluency comprehension and irritable affect. Face was symmetrical. Visual ruth are full to confrontation. Pupils were round reactive. There was mild right pronator drift. There was mild right arm and hand weakness. There was mild right leg drift. He was able to lift his both legs against gravity. Deep tendon reflexes in upper extremities were trace while knee reflexes were brisk with equivocal or flexor plantars. Speech was normal. Results Labs CBC & Chem 7: 02/10/22 15:43 02/10/22 17:02 Labs: Short CBC 02/10/22 Range/Units 15:43 WBC 16.7 H (4.8-10.8) X10*3/uL Hgb 16.6 (14.0-18.0) g/dl Hct 48.1 (42.0-52.0) % Plt Count 236 (160-400) X10*3/uL BMP 02/10/22 17:02 Sodium 141 Potassium 3.6 Chloride 106 Carbon Dioxide 25 BUN 15 D Creatinine 1.10 Calcium 9.4 Cardiac Enzymes 02/10/22 Range/Units 17:02 Total Creatine Kinase 116 (38-174) U/L Liver Function 02/10/22 Range/Units 17:02 Total Bilirubin 0.5 (0.0-1.0) mg/dL Direct Bilirubin 0.2 (0.0-0.5) mg/dL AST 19 (5-37) U/L ALT 17 (0-40) U/L Alkaline Phosphatase 45 (39-117) U/L Albumin 4.1 (3.5-5.0) g/dL Urine 02/10/22 Range/Units 18:31 Urine Color YELLOW Urine Appearance CLEAR Urine pH 6.0 (5.0-8.0) Ur Specific [place] 1.010 (1.005-1.025) Urine Protein 2+ H (NEG-TRACE) MG/DL Urine Glucose (UA) NEG (NEG) MG/DL Noncontrast head CT revealed bilateral globus pallidus area hypodensities. Chest x-ray was okay. Assessment and Plan (1) Right hemiparesis: Status: Acute 51 years old man with underlying history of drug abuse came to hospital with few days of right-sided numbness and weakness involving arm and leg. His examination revealed no facial weakness but mild right arm and leg weakness with bilateral leg hyper reflexia. All these clinical features to gather suggested pathology and cervical spine area. Obtaining MRI of cervical spine with and without contrast is reasonable. As far as CT scan of brain findings are concerned, bilateral globus pallidus area hypodensities are likely chronic and likely read due to previous history of drug abuse. Procedures Date of Service Date of Service: 02/10/22
--- NOTE | 2022-02-10 21:54 | PC.NURSE ---
This US called [facility] for a Neuro Tx per Geetha Knowles. They are closed for transfers
[2022-02-10] MEDS: Ketorolac Tromethamine 30 MG/ML VIAL IVPUSH (22:01)
--- NOTE | 2022-02-10 22:51 | PM.IMHP ---
History of Present Illness Date of Service: 02/10/22 Chief Complaint: right-sided weakness/numbness 51-year-old male with a past medical history of opiate dependence- remote use of IV drugs, schizophrenia presented to the hospital with a chief complaint of right neck pain/arm pain /right-sided chest pain /right arm and right leg weakness/ numbness. Patient reports that for the past 4 days he has been having right neck pain arm pain associated right-sided chest pain; was recently seen in the ER and was given prednisone; but for past 2 days he noted right upper and lower extremity weakness/numbness; hence decided to come to the ER for further evaluation. Denies any headaches, falls or trauma. Denies any recent viral infection, GI symptoms. 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 [facility] Medical History Psychosis Schizophrenia Substance abuse Family History Father Medical history unknown Mother Medical history unknown Surgical History History of liver biopsy Social History Housing: Apartment Patient Tobacco Use Status: Current everyday Tobacco user Tobacco use type: Cigarette Cigarettes Per Day: 20 e-Cigarette/Vaping Use: Never Used Second Hand Smoke Exposure: No Advance Directives: No Advance Directives Information Provided: No service: No Current occupational status: disabled Cognitive needs: No Hearing needs: No Vision needs: No Meds Allergies Allergy/AdvReac Type Severity Reaction Status Date / Time haloperidol [From HALDOL] Allergy Intermediate UNKNOWN Verified 08/05/21 13:57 Active Medications: Current Medications Acetaminophen (Acetaminophen 325 Mg Tablet) 650 mg PO Q6H PRN PRN Reason: Pain, Mild (Pain Scale 1-3) Hydromorphone HCl (Hydromorphone Hcl 1 Mg/Ml Syringe) 0.5 mg IVPUSH Q4H PRN; Protocol PRN Reason: Pain, Severe (Pain Scale 7-10) Methylprednisolone Sodium Succinate 1,000 mg/ Sodium Chloride 66 mls @ 66 mls/hr IV ONCE ONE Stop: 02/10/22 22:52 Melatonin (Melatonin 3 Mg Tablet) 6 mg PO BEDTIME PRN PRN Reason: Insomnia Methylprednisolone Sodium Succinate (Methylprednisolone Sod Succ 40 Mg/Ml Vial) 1,000 mg IVPUSH Q24H [facility] Pharmacy Consult (Consult Rx Perform Med Rec) 1 each MISCELLANE ONCE PRN PRN Reason: Consult order Senna (Sennosides 8.6 Mg Tablet) 17.2 mg PO BEDTIME PRN PRN Reason: Constipation Sodium Chloride (0.9 % Sodium Chloride Flush 3 Ml Syringe) 3 ml IVFLUSH QSHIFT [facility] Home Medications Medication Instructions Recorded Confirmed Last Taken Type oxcarbazepine 600 mg tablet 600 mg PO BID 07/05/21 02/10/22 02/10/22 History perphenazine 8 mg tablet 8 mg PO BEDTIME 07/05/21 02/10/22 02/09/22 History buprenorphine 4 mg-naloxone 1 mg 0.5 film SUBLINGUAL DAILY@1700 02/10/22 02/10/22 02/09/22 History sublingual film (Suboxone) Physical Exam Vital Signs and Narrative: Vital Signs: Last Vital Signs Temp 98.5 F 02/10/22 18:24 Pulse 57 02/10/22 18:24 Resp 13 02/10/22 18:24 BP 148/93 H 02/10/22 18:24 Pulse Ox 98 02/10/22 18:24 BMI result Body Mass Index 31.8 Gen: Appears be in no acute distress HEENT: NCAT, Moist mucosa. Pulmonary: Vesicular breath sounds, fair air entry CVS: Normal S1-S2 Abdomen: BS+, Soft, Nontender Extremities: Warm well perfused Neuro: Alert and awake. oriented x3; cranial nerves intact; sensation decreased to soft touch on the right upper and lower extremity compared to the left; right side upper extremity than lower extremity strength 3/5; strength 5/5 on left side; Results Labs CBC and Chem 7: 02/10/22 15:43 02/10/22 17:02 Labs: Laboratory Results - last 24 hr 02/10/22 02/10/22 02/10/22 15:43 15:43 15:43 MCV 93.0 MCH 32.1 MCHC 34.5 RDW 13.6 Plt Count 236 MPV 9.9 Immature Gran % (Auto) 0.3 Neut % (Auto) 69.9 Lymph % (Auto) 20.9 [place] % (Auto) 8.3 Eos % (Auto) 0.4 Baso % (Auto) 0.2 Lymph # (Auto) 3.5 [place] # (Auto) 1.4 H Eos # (Auto) 0.1 Baso # (Auto) 0.0 Abs Immat Gran (auto) 0.05 H Absolute Neuts (auto) 11.7 H Absolute Nucleated RBC 0.000 Nucleated RBC % (auto) 0.0 ESR PT 11.5 INR 1.0 Anion Gap Estim Creat Clear Calc Estimated GFR Random Glucose Lactic Acid Calcium Magnesium Total Bilirubin Direct Bilirubin AST ALT Alkaline Phosphatase Total Creatine Kinase Troponin I High Sens < 3.5 C-Reactive Protein Total Protein Albumin Urine Color Urine Appearance Urine pH Ur Specific [place] Urine Protein Urine Glucose (UA) Urine Ketones Urine Blood Urine Nitrite Ur Leukocyte Esterase Urine RBC Urine WBC Ur Squamous Epith Cells Urine Bacteria Urine Opiates Screen Urine Fentanyl Screen Ur Barbiturates Screen Ur Phencyclidine Scrn Ur Amphetamines Screen U Benzodiazepines Scrn Urine Cocaine Screen U Marijuana (THC) Screen COVID-19 (DILEEP) COVID-19 Clin Com 02/10/22 02/10/22 02/10/22 16:40 17:02 17:02 MCV MCH MCHC RDW Plt Count MPV Immature Gran % (Auto) Neut % (Auto) Lymph % (Auto) [place] % (Auto) Eos % (Auto) Baso % (Auto) Lymph # (Auto) [place] # (Auto) Eos # (Auto) Baso # (Auto) Abs Immat Gran (auto) Absolute Neuts (auto) Absolute Nucleated RBC Nucleated RBC % (auto) ESR 6 PT INR Anion Gap 14 Estim Creat Clear Calc 76.7 Estimated GFR > 60 Random Glucose 87 Lactic Acid Calcium 9.4 Magnesium 2.2 Total Bilirubin 0.5 Direct Bilirubin 0.2 AST 19 ALT 17 Alkaline Phosphatase 45 Total Creatine Kinase 116 Troponin I High Sens C-Reactive Protein 0.76 H Total Protein 7.2 Albumin 4.1 Urine Color Urine Appearance Urine pH Ur Specific [place] Urine Protein Urine Glucose (UA) Urine Ketones Urine Blood Urine Nitrite Ur Leukocyte Esterase Urine RBC Urine WBC Ur Squamous Epith Cells Urine Bacteria Urine Opiates Screen Urine Fentanyl Screen Ur Barbiturates Screen Ur Phencyclidine Scrn Ur Amphetamines Screen U Benzodiazepines Scrn Urine Cocaine Screen U Marijuana (THC) Screen COVID-19 (DILEEP) Negative COVID-19 Clin Com See Note 02/10/22 02/10/22 02/10/22 17:02 18:31 18:31 MCV MCH MCHC RDW Plt Count MPV Immature Gran % (Auto) Neut % (Auto) Lymph % (Auto) [place] % (Auto) Eos % (Auto) Baso % (Auto) Lymph # (Auto) [place] # (Auto) Eos # (Auto) Baso # (Auto) Abs Immat Gran (auto) Absolute Neuts (auto) Absolute Nucleated RBC Nucleated RBC % (auto) ESR PT INR Anion Gap Estim Creat Clear Calc Estimated GFR Random Glucose Lactic Acid 1.3 Calcium Magnesium Total Bilirubin Direct Bilirubin AST ALT Alkaline Phosphatase Total Creatine Kinase Troponin I High Sens C-Reactive Protein Total Protein Albumin Urine Color YELLOW Urine Appearance CLEAR Urine pH 6.0 Ur Specific [place] 1.010 Urine Protein 2+ H Urine Glucose (UA) NEG Urine Ketones NEG Urine Blood TRACE Urine Nitrite NEG Ur Leukocyte Esterase NEG Urine RBC 1-4 Urine WBC 0-2 Ur Squamous Epith Cells NONE Urine Bacteria NONE Urine Opiates Screen Not Detected Urine Fentanyl Screen Not Detected Ur Barbiturates Screen Not Detected Ur Phencyclidine Scrn Not Detected Ur Amphetamines Screen Not Detected U Benzodiazepines Scrn Not Detected Urine Cocaine Screen Not Detected U Marijuana (THC) Screen POSITIVE H COVID-19 (DILEEP) COVID-19 Clin Com Imaging Radiologist's Impressions: Impressions Chest X-Ray 02/10/22 15:40 IMPRESSION: Unremarkable examination. Head CT 02/10/22 16:38 IMPRESSION: No acute intracranial finding. There is symmetric hypoattenuation within the globus pallidus bilaterally. These findings coincide with the abnormality depicted on MR imaging of the brain from 07/22/2020. Brain MRI 02/10/22 21:30 IMPRESSION: 1. There is a confluent T2 hyperintense and enhancing lesion within the right lateral/dorsal spinal cord at the levels of C1-C2. No additional spinal cord signal abnormalities. This appearance is somewhat nonspecific and could represent sequela of an inflammatory/demyelinating insult, an infectious etiology, or an ischemic insult. 2. No acute intracranial abnormalities. No abnormal intracranial enhancement. 3. Mild underlying microangiopathy. 4. Symmetric T2 hyperintensity and susceptibility artifact within the bilateral globus pallidi is nonspecific but may be seen in the setting of various metabolic deposition disorders including neurodegeneration with brain iron accumulation (NBIA). 5. Moderate multilevel degenerative spinal arthropathy of the cervical spine as described in detail above. Most notably, there is moderate spinal canal stenosis at C5-C6. Mild spinal canal stenosis at C4-C5. Moderate to severe neural foraminal stenoses from C3-C7. Cervical Spine MRI 02/10/22 21:30 IMPRESSION: 1. There is a confluent T2 hyperintense and enhancing lesion within the right lateral/dorsal spinal cord at the levels of C1-C2. No additional spinal cord signal abnormalities. This appearance is somewhat nonspecific and could represent sequela of an inflammatory/demyelinating insult, an infectious etiology, or an ischemic insult. 2. No acute intracranial abnormalities. No abnormal intracranial enhancement. 3. Mild underlying microangiopathy. 4. Symmetric T2 hyperintensity and susceptibility artifact within the bilateral globus pallidi is nonspecific but may be seen in the setting of various metabolic deposition disorders including neurodegeneration with brain iron accumulation (NBIA). 5. Moderate multilevel degenerative spinal arthropathy of the cervical spine as described in detail above. Most notably, there is moderate spinal canal stenosis at C5-C6. Mild spinal canal stenosis at C4-C5. Moderate to severe neural foraminal stenoses from C3-C7. Assessment and Plan (1) Spinal cord lesion: Status: Acute (2) Right hemiparesis: Status: Acute Plan 51-year-old male with a past medical history of opiate dependence- remote use of IV drugs, schizophrenia presented to the hospital with a chief complaint of right neck pain/arm pain /right-sided chest pain /right arm and right leg weakness/ numbness. Admitted for following Right hemiparesis: MRI brain/ C-spine showed T2 hyperintense enhancing lesion at the level of C1-C2 - could represent sequela of inflammatory/ demyelinating insult. Patient is started on Solu-Medrol 1000 mg IV daily as per Neurology recommendations. Neuro checks Fall precautions ? urinary retention- bladder scan Right-sided chest pain: Atypical in nature. EKG nonischemic. Troponins negative. History of schizophrenia: Continue home medications History of opiate abuse: Patient on Suboxone. Addiction Medicine consult. DVT prophylaxis: SCD boots Code status: Full code Quality Stroke Does the patient have a stroke diagnosis?: No VTE Prior VTE?: No VTE Risk Level:: Medical - moderate - high VTE Device Contraindication: N/A - Device Ordered VTE Drug Contraindication: Treatment Not Indicated
[2022-02-10] MEDS: methylPREDNISolone Sod Succ 1,000 MG in 0.9 % Sodium Chloride 50 ML 66 MG IV (23:15)
[2022-02-10 23:18] VITALS: BP 136/85; PULSE 53; RESP 18
[2022-02-10] MEDS: 0.9 % Sodium Chloride Flush 3 ML SYRINGE IVFLUSH (23:18)
[2022-02-11] VITALS (9 sets, daily range): BP systolic 135–151; BP diastolic 80–89; PULSE 52–72; RESP 14–22; TEMP 36.1–37.3; O2SAT 92–96
--- NOTE | 2022-02-11 00:25 | PC.NURSE ---
pt stood up, removed hospital gown from himself, attempted to urinate in urinal, but 'missed', urinating on floor. Pt expressing frustration with 'all this stuff' (referring to traffic monitor specialist, BP cuff, and other monitoring devices in the room. Removed monitor from his own chest, asked for new blanket, new hospital gown, and new pants. New clean linens/clothes given. traffic monitor specialist reapplied. plan to move to ED bed 18
--- NOTE | 2022-02-11 03:10 | PC.NURSE ---
pt irritable, believes he does not know what is going on related to his care. pt reassured, and asked for earplugs. This RN went to get earplugs, and approx 1 minute later, pt got OOB, unsteady on feet and asked where/what he is doing. pt frustrated stating no one is helping him. pt was reminded that he had just asked this RN for earplugs less than 2 minutes ago so thats not true that no one is helping him. pt given earplugs, attempted to void in urinal but unsucessful, pt moved to a hospital bed, resting at this time
--- NOTE | 2022-02-11 05:25 | PC.NURSE ---
pt was noted to be on the edge of the bed, tangled in cardiac monitoring cord, asked to void. pt assisted to standing position, initially had difficulty voiding, after a few minutes able to void, pt dropped urinal on ground, pt got frustrated, was reassured that it is ok. pt c/o increased weakness and swelling to RLE. aware and in to see pt. RLE is unchanged from start of shift, +CSM
[2022-02-11 07:26] LABS: MANUAL DIFF FLAG NO
[2022-02-11] MEDS: OXcarbazepine 300 MG TABLET 600 MG PO ×2 (07:27→20:57)
[2022-02-11] MEDS: Benztropine Mesylate 0.5 MG TABLET PO ×2 (07:27→20:56)
[2022-02-11 07:30] LABS: Basophils Percent Auto 0.1 % (0-2); Hematocrit 46.4 % (42.0-52.0); Hemoglobin 15.7 g/dl (14.0-18.0); Imm Gran Abs Auto 0.04 X10*3/uL (0.00-0.03); Imm Gran Pct Auto 0.4 % (0.0-0.4); Lymphocytes Percent Auto 10.2 % (20-40); Mean Corpuscular HGB Conc 33.8 g/dl (31.0-36.0); Mean Corpuscular Hemoglobin 31.2 pg (27.0-33.0); Mean Corpuscular Volume 92.1 fL (80.0-98.0); Mean Platelet Volume 10.2 fL (9.4-12.4); Monocytes Absolute Auto 0.1 X10*3/uL (0.1-1.2); Monocytes Percent Auto 0.8 % (2-11); Neutrophils Absolute Auto 8.6 x10*3/uL (2.0-8.3); Neutrophils Percent Auto 88.5 % (45-73); Platelet Count 224 X10*3/uL (160-400); Red Blood Count 5.04 X10*6/uL (4.60-5.80); Red Cell Distribution Width 13.6 % (11.0-16.0); White Blood Count 9.8 X10*3/uL (4.8-10.8)
[2022-02-11 07:48] LABS: Anion Gap 16 (12-20); Blood Urea Nitrogen 12 mg/dL (9-16); Carbon Dioxide 22 mmol/L (22-29); Chloride 106 mmol/L (96-108); Creatinine Clr Calc Pharmacy 90.7; Estimated Glomerular Filt Rate > 60; Glucose Random 126 mg/dL (60-115); Potassium 4.2 mmol/L (3.3-5.1); Sodium 140 mmol/L (135-145)
--- NOTE | 2022-02-11 09:18 | MHC.CM.PN ---
Addendum entered by Irene Clark 02/11/22 10:53: PT REPORTS THE ONLY PHONE NUMBER HE HAS FOR [facility] IS [phone] CM WILL CALL TO ENSURE EVERYTHING IS PREPARED FOR DC AND CONFIRM THERE IS NO OUTSIDE VNA CM CALLED THE [facility] NUMBER AND OBTAINED AN AFTER HOURS EMERGENCY NUMBER OF [phone] CM CALLED THE AFTER HOURS NUMBER AND LEFT A VM REQUESTING A RETURN CALL Original Note: PT REPORTS HE LIVES ALONE AND HAS [facility] SUPPORT SERVICES HE REPORTS THE [facility] NURSE ADMINISTERS HIS MEDS 2X/DAY PT DOES NOT HAVE A HCP AND DECLINES TO COMPLETE ONE TODAY PCP: ADELA CADENA PT REPORTS HE IS COVID-19 VACCINATED X 3 IMM DELIVERED, COPY SENT TO [facility] CURRENT DC PLAN IS HOME WITH RESUMPTION OF [facility] SERVICES PT UNSURE IF HE CAN GET A RIDE, HE IS AWARE CM CAN ASSIST
[2022-02-11] MEDS: Nicotine 21 MG PATCH.TD24 TRANSDERMA (12:12)
--- NOTE | 2022-02-11 13:07 | HO.PM.IMPN ---
Subjective Subjective Date of Service: 02/11/22 Interval History: cc: right sided weakness interval history:unchanged Cardiovascular Cardiovascular: Reports no additional cardiovascular complaints Respiratory Respiratory: Reports no additional respiratory complaints Physical Exam Vital Signs: Vital Signs: Last Vital Signs Temp 98.0 F 02/11/22 05:17 Pulse 54 02/11/22 10:01 Resp 14 02/11/22 05:17 BP 151/83 H 02/11/22 10:01 Pulse Ox 96 02/11/22 10:01 BMI result Body Mass Index 31.8 General: AO X 3, no acute distress Resp: CTA bilateral, no accessory muscles used CVS: S1,S2,RRR GI: soft, non tender, non distended Neuro: right hemiparesis, alert Psych: appropriate affect, appropriate insight Objective Data Active Medications Acetaminophen (Acetaminophen 325 Mg Tablet) 650 mg PO Q6H PRN PRN Reason: Pain, Mild (Pain Scale 1-3) Benztropine Mesylate (Benztropine Mesylate 0.5 Mg Tablet) 0.5 mg PO BID@0830,2100 [facility] Last Admin: 02/11/22 07:27 Dose: 0.5 mg Documented by: JACEY Hydromorphone HCl (Hydromorphone Hcl 1 Mg/Ml Syringe) 0.5 mg IVPUSH Q4H PRN; Protocol PRN Reason: Pain, Severe (Pain Scale 7-10) Methylprednisolone Sodium Succinate 1,000 mg/ Sodium Chloride 66 mls @ 66 mls/hr IV Q24H [facility] Stop: 02/12/22 21:59 Melatonin (Melatonin 3 Mg Tablet) 6 mg PO BEDTIME PRN PRN Reason: Insomnia Nicotine (Nicotine 21 Mg Patch.Td24) 21 mg TRANSDERMA DAILY [facility] Last Admin: 02/11/22 12:12 Dose: 21 mg Documented by: JACEY Oxcarbazepine (Oxcarbazepine 300 Mg Tablet) 600 mg PO BID [facility] Last Admin: 02/11/22 07:27 Dose: 600 mg Documented by: JACEY Perphenazine (Perphenazine 8 Mg Tablet) 8 mg PO BEDTIME [facility] Pharmacy Consult (Consult Rx Perform Med Rec) 1 each MISCELLANE ONCE PRN PRN Reason: Consult order Senna (Sennosides 8.6 Mg Tablet) 17.2 mg PO BEDTIME PRN PRN Reason: Constipation Sodium Chloride (0.9 % Sodium Chloride Flush 3 Ml Syringe) 3 ml IVFLUSH QSHIFT [facility] Last Admin: 02/11/22 11:38 Dose: Not Given Documented by: JACEY Non-Admin Reason: Med Not Available Labs CBC & Chem 7: 02/11/22 06:32 02/11/22 06:32 Labs: Laboratory Results - last 24 hr 02/10/22 02/10/22 02/10/22 15:43 15:43 15:43 MCV 93.0 MCH 32.1 MCHC 34.5 RDW 13.6 Plt Count 236 MPV 9.9 Immature Gran % (Auto) 0.3 Neut % (Auto) 69.9 Lymph % (Auto) 20.9 Ida % (Auto) 8.3 Eos % (Auto) 0.4 Baso % (Auto) 0.2 Lymph # (Auto) 3.5 Ida # (Auto) 1.4 H Eos # (Auto) 0.1 Baso # (Auto) 0.0 Abs Immat Gran (auto) 0.05 H Absolute Neuts (auto) 11.7 H Absolute Nucleated RBC 0.000 Nucleated RBC % (auto) 0.0 ESR PT 11.5 INR 1.0 Anion Gap Estim Creat Clear Calc Estimated GFR Random Glucose Lactic Acid Calcium Magnesium Total Bilirubin Direct Bilirubin AST ALT Alkaline Phosphatase Total Creatine Kinase Troponin I High Sens < 3.5 C-Reactive Protein Total Protein Albumin Urine Color Urine Appearance Urine pH Ur Specific [place] Urine Protein Urine Glucose (UA) Urine Ketones Urine Blood Urine Nitrite Ur Leukocyte Esterase Urine RBC Urine WBC Ur Squamous Epith Cells Urine Bacteria Urine Opiates Screen Urine Fentanyl Screen Ur Barbiturates Screen Ur Phencyclidine Scrn Ur Amphetamines Screen U Benzodiazepines Scrn Urine Cocaine Screen U Marijuana (THC) Screen COVID-19 (DILEEP) COVID-19 Clin Com 02/10/22 02/10/22 02/10/22 16:40 17:02 17:02 MCV MCH MCHC RDW Plt Count MPV Immature Gran % (Auto) Neut % (Auto) Lymph % (Auto) Ida % (Auto) Eos % (Auto) Baso % (Auto) Lymph # (Auto) Ida # (Auto) Eos # (Auto) Baso # (Auto) Abs Immat Gran (auto) Absolute Neuts (auto) Absolute Nucleated RBC Nucleated RBC % (auto) ESR 6 PT INR Anion Gap 14 Estim Creat Clear Calc 76.7 Estimated GFR > 60 Random Glucose 87 Lactic Acid Calcium 9.4 Magnesium 2.2 Total Bilirubin 0.5 Direct Bilirubin 0.2 AST 19 ALT 17 Alkaline Phosphatase 45 Total Creatine Kinase 116 Troponin I High Sens C-Reactive Protein 0.76 H Total Protein 7.2 Albumin 4.1 Urine Color Urine Appearance Urine pH Ur Specific [place] Urine Protein Urine Glucose (UA) Urine Ketones Urine Blood Urine Nitrite Ur Leukocyte Esterase Urine RBC Urine WBC Ur Squamous Epith Cells Urine Bacteria Urine Opiates Screen Urine Fentanyl Screen Ur Barbiturates Screen Ur Phencyclidine Scrn Ur Amphetamines Screen U Benzodiazepines Scrn Urine Cocaine Screen U Marijuana (THC) Screen COVID-19 (DILEEP) Negative COVID-19 [employer] Com See Note 02/10/22 02/10/22 02/10/22 17:02 18:31 18:31 MCV MCH MCHC RDW Plt Count MPV Immature Gran % (Auto) Neut % (Auto) Lymph % (Auto) Ida % (Auto) Eos % (Auto) Baso % (Auto) Lymph # (Auto) Ida # (Auto) Eos # (Auto) Baso # (Auto) Abs Immat Gran (auto) Absolute Neuts (auto) Absolute Nucleated RBC Nucleated RBC % (auto) ESR PT INR Anion Gap Estim Creat Clear Calc Estimated GFR Random Glucose Lactic Acid 1.3 Calcium Magnesium Total Bilirubin Direct Bilirubin AST ALT Alkaline Phosphatase Total Creatine Kinase Troponin I High Sens C-Reactive Protein Total Protein Albumin Urine Color YELLOW Urine Appearance CLEAR Urine pH 6.0 Ur Specific [place] 1.010 Urine Protein 2+ H Urine Glucose (UA) NEG Urine Ketones NEG Urine Blood TRACE Urine Nitrite NEG Ur Leukocyte Esterase NEG Urine RBC 1-4 Urine WBC 0-2 Ur Squamous Epith Cells NONE Urine Bacteria NONE Urine Opiates Screen Not Detected Urine Fentanyl Screen Not Detected Ur Barbiturates Screen Not Detected Ur Phencyclidine Scrn Not Detected Ur Amphetamines Screen Not Detected U Benzodiazepines Scrn Not Detected Urine Cocaine Screen Not Detected U Marijuana (THC) Screen POSITIVE H COVID-19 (DILEEP) COVID-19 [employer] Com 02/11/22 02/11/22 06:32 06:32 MCV 92.1 MCH 31.2 MCHC 33.8 RDW 13.6 Plt Count 224 MPV 10.2 Immature Gran % (Auto) 0.4 Neut % (Auto) 88.5 H Lymph % (Auto) 10.2 L Ida % (Auto) 0.8 L Eos % (Auto) 0.0 Baso % (Auto) 0.1 Lymph # (Auto) 1.0 L Ida # (Auto) 0.1 Eos # (Auto) 0.0 Baso # (Auto) 0.0 Abs Immat Gran (auto) 0.04 H Absolute Neuts (auto) 8.6 H Absolute Nucleated RBC 0.000 Nucleated RBC % (auto) 0.0 ESR PT INR Anion Gap 16 Estim Creat Clear Calc 90.7 Estimated GFR > 60 Random Glucose 126 H D Lactic Acid Calcium 9.0 Magnesium Total Bilirubin Direct Bilirubin AST ALT Alkaline Phosphatase Total Creatine Kinase Troponin I High Sens C-Reactive Protein Total Protein Albumin Urine Color Urine Appearance Urine pH Ur Specific [place] Urine Protein Urine Glucose (UA) Urine Ketones Urine Blood Urine Nitrite Ur Leukocyte Esterase Urine RBC Urine WBC Ur Squamous Epith Cells Urine Bacteria Urine Opiates Screen Urine Fentanyl Screen Ur Barbiturates Screen Ur Phencyclidine Scrn Ur Amphetamines Screen U Benzodiazepines Scrn Urine Cocaine Screen U Marijuana (THC) Screen COVID-19 (DILEEP) COVID-19 Clin Com Assessment and Plan (1) Spinal cord lesion: Status: Acute Plan 51M presented with right hemiparesis right hemiparesis due to C1-c2 lesion of uncertain etiology continue empiric steroids infection unlikely plan for LP rule out MS neuro following psychiatric disorder continue home meds opiate dependence suboxone dvt prophylaxis - lovenox (hold on 02/13 for LP) reason for continued hospitalization: iv steroids Quality Stroke Does the patient have a stroke diagnosis?: No VTE Prior VTE?: No VTE Risk Level:: Medical - moderate - high VTE Device Contraindication: N/A - Device Ordered VTE Drug Contraindication: Treatment Not Indicated
--- NOTE | 2022-02-11 15:58 | MHC.RECOVSUP ---
Recovery Support note: Patient is a 51 year old Jordanian speaking male who presented to [facility] ED due to radiating neck pain and is being medically admitted. This global technical writer met with patient to discuss Suboxone. Patient reports he was taking the Suboxone prior to coming to the hospital and denies recent substance use. Patient is reporting shoulder pain at time of consult. This information was relayed to patient's RN. Discussed case with Raisa WILL.
[2022-02-11] MEDS: HYDROmorphone HCl 1 MG/ML SYRINGE 0.5 MG IVPUSH ×2 (16:12→21:01)
[2022-02-11] MEDS: Sennosides 8.6 MG TABLET 17.2 MG PO (20:56)
[2022-02-11] MEDS: Melatonin 3 MG TABLET 6 MG PO (20:57)
[2022-02-11] MEDS: methylPREDNISolone Sod Succ 1,000 MG in 0.9 % Sodium Chloride 50 ML 66 MG IV (20:57)
[2022-02-11] MEDS: Perphenazine 8 MG TABLET PO (20:57)
[2022-02-12] VITALS (10 sets, daily range): BP systolic 125–172; BP diastolic 74–93; PULSE 50–86; RESP 14–18; TEMP 36.2–37; O2SAT 92–99
[2022-02-12 07:17] LABS: Hematocrit 47.1 % (42.0-52.0); Hemoglobin 16.1 g/dl (14.0-18.0); Mean Corpuscular HGB Conc 34.2 g/dl (31.0-36.0); Mean Corpuscular Hemoglobin 31.6 pg (27.0-33.0); Mean Corpuscular Volume 92.4 fL (80.0-98.0); Mean Platelet Volume 10.1 fL (9.4-12.4); Platelet Count 239 X10*3/uL (160-400); Red Cell Distribution Width 13.5 % (11.0-16.0); White Blood Count 15.8 X10*3/uL (4.8-10.8)
[2022-02-12 07:37] LABS: Anion Gap 13 (12-20); Blood Urea Nitrogen 18 mg/dL (9-16); Calcium 9.4 mg/dL (8.4-10.2); Carbon Dioxide 23 mmol/L (22-29); Chloride 107 mmol/L (96-108); Creatinine Clr Calc Pharmacy 86.1; Estimated Glomerular Filt Rate > 60; Glucose Fasting 140 mg/dL (60-99); Potassium 4.2 mmol/L (3.3-5.1); Sodium 139 mmol/L (135-145)
[2022-02-12] MEDS: OXcarbazepine 300 MG TABLET 600 MG PO ×2 (10:03→20:21)
[2022-02-12] MEDS: Nicotine 21 MG PATCH.TD24 TRANSDERMA (10:03)
[2022-02-12] MEDS: Benztropine Mesylate 0.5 MG TABLET PO ×2 (10:03→20:21)
--- NOTE | 2022-02-12 11:10 | PM.NEUROCN ---
History of Present Illness Data of Consult Service Date: 02/12/22 Primary Care Provider: DO SEDA Ibanez Reason for consult: Myelopathy 51 years old man with acute right hemiparesis involving arm and leg noted to have an intramedullary C2-3 spinal cord lesion. Compared to his initial examination his right arm weakness was somewhat worse. Leg strength was still about the same. He was complaining of little bit weakness on the left side. Review of Systems Review of Systems: No speech or swallowing or breathing difficulty PMFSH Past Medical History Medical History Psychosis Schizophrenia Substance abuse Family History Family History Father Medical history unknown Mother Medical history unknown Surgical History Surgical History History of liver biopsy Social History Social History Household Members: None Housing: Apartment Do you presently have visiting nurse or other home services: No Patient Tobacco Use Status: Current everyday Tobacco user Tobacco use type: Cigarette Cigarettes Per Day: 20 e-Cigarette/Vaping Use: Never Used Second Hand Smoke Exposure: No Substance Use Type: Marijuana service: No Current occupational status: disabled Cognitive needs: No Hearing needs: No Vision needs: No Meds Allergies Allergy/AdvReac Type Severity Reaction Status Date / Time haloperidol [From HALDOL] Allergy Intermediate UNKNOWN Verified 08/05/21 13:57 Active Medications: Current Medications Acetaminophen (Acetaminophen 325 Mg Tablet) 650 mg PO Q6H PRN PRN Reason: Pain, Mild (Pain Scale 1-3) Benztropine Mesylate (Benztropine Mesylate 0.5 Mg Tablet) 0.5 mg PO BID@0830,2100 [facility] Last Admin: 02/12/22 10:03 Dose: 0.5 mg Documented by: Enoxaparin Sodium (Enoxaparin Sodium 40 Mg/0.4 Ml Syringe) 40 mg SUBCUT Q24H [facility] Last Admin: 02/11/22 15:55 Dose: Not Given Documented by: Hydromorphone HCl (Hydromorphone Hcl 1 Mg/Ml Syringe) 0.5 mg IVPUSH Q4H PRN; Protocol PRN Reason: Pain, Severe (Pain Scale 7-10) Last Admin: 02/11/22 21:01 Dose: 0.5 mg Documented by: Methylprednisolone Sodium Succinate 1,000 mg/ Sodium Chloride 66 mls @ 66 mls/hr IV Q24H [facility] Stop: 02/12/22 21:59 Last Infusion: 02/11/22 22:30 Dose: Infused Documented by: Melatonin (Melatonin 3 Mg Tablet) 6 mg PO BEDTIME PRN PRN Reason: Insomnia Last Admin: 02/11/22 20:57 Dose: 6 mg Documented by: Nicotine (Nicotine 21 Mg Patch.Td24) 21 mg TRANSDERMA DAILY [facility] Last Admin: 02/12/22 10:03 Dose: 21 mg Documented by: Oxcarbazepine (Oxcarbazepine 300 Mg Tablet) 600 mg PO BID [facility] Last Admin: 02/12/22 10:03 Dose: 600 mg Documented by: Perphenazine (Perphenazine 8 Mg Tablet) 8 mg PO BEDTIME [facility] Last Admin: 02/11/22 20:57 Dose: 8 mg Documented by: Pharmacy Consult (Consult Rx Perform Med Rec) 1 each MISCELLANE ONCE PRN PRN Reason: Consult order Senna (Sennosides 8.6 Mg Tablet) 17.2 mg PO BEDTIME PRN PRN Reason: Constipation Last Admin: 02/11/22 20:56 Dose: 17.2 mg Documented by: Sodium Chloride (0.9 % Sodium Chloride Flush 3 Ml Syringe) 3 ml IVFLUSH QSHIFT [facility] Last Admin: 02/12/22 00:00 Dose: 3 ml Documented by: Home Medications Medication Instructions Recorded Confirmed Last Taken Type oxcarbazepine 600 mg tablet 600 mg PO BID 07/05/21 02/10/22 02/10/22 History perphenazine 8 mg tablet 8 mg PO BEDTIME 07/05/21 02/10/22 02/09/22 History buprenorphine 4 mg-naloxone 1 mg 0.5 film SUBLINGUAL DAILY@1700 02/10/22 02/10/22 02/09/22 History sublingual film (Suboxone) Physical Exam Vital Signs: Vital Signs: Last Vital Signs Temp 97.4 F 02/12/22 07:29 Pulse 55 02/12/22 07:29 Resp 18 02/12/22 07:29 BP 129/75 02/12/22 07:29 Pulse Ox 97 02/12/22 07:29 BMI result Body Mass Index 31.8 Neuro: Other: He is alert and awake with normal spontaneity of speech fluency comprehension and affect. Speech is normal. He is able to lift his right arm against gravity but it is moderately weak. He is able to lift his right leg against gravity. Reflexes are brisk in both knees. There is no obvious focal weakness in left arm and leg. Face is symmetrical. Visual ruth are full. Results Labs CBC & Chem 7: 02/12/22 06:50 02/12/22 06:50 Labs: Short CBC 02/12/22 Range/Units 06:50 WBC 15.8 H (4.8-10.8) X10*3/uL Hgb 16.1 (14.0-18.0) g/dl Hct 47.1 (42.0-52.0) % Plt Count 239 (160-400) X10*3/uL BMP 02/12/22 06:50 Sodium 139 Potassium 4.2 Chloride 107 Carbon Dioxide 23 BUN 18 H Creatinine 0.98 Calcium 9.4 Microbiology Microbiology Results: Microbiology 02/10/22 16:40 Blood - Venous Blood Culture - Preliminary No growth after 24 hours. 02/10/22 16:40 Blood - Venous Blood Culture - Preliminary No growth after 24 hours. Assessment and Plan (1) Spinal cord lesion: Status: Acute 51 years old man with new onset of right arm and leg weakness due to upper cervical spinal cord lesion. Review of imaging again revealed lesion that was enhancing but not particularly following vascular territory. In some section it seemed to follow areas of right anterior spinal artery but then it also crosses midline. Crossing midline could be swelling from a stroke, if that what it was, or due to an alternate etiology such as an inflammatory or malignant lesion. There was no brain lesion of similar nature. He did not have any sign of meningoencephalitis. At this time likely differential diagnosis included stroke, intramedullary primary or metastatic tumor, or infection/inflammation. I am more concerned about the 2nd possibility. Because of upper cervical location, slight worsening of symptoms, a lack of response to steroids, it would be prudent to transfer him to tertiary care center where appropriate workup and neuro surgical consultation if needed can be obtained. Also if this lesion worsens, he might require intubation. If that was not practical or possible, I recommend workup to rule out any primary tumor. This lesion was not easily biopsiable. A lumbar puncture is also recommended as it might help specially if we could get some CSF for cytology. Procedures Date of Service Date of Service: 02/12/22
[2022-02-12] MEDS: Acetaminophen 325 MG TABLET 650 MG PO ×2 (12:31→22:46)
[2022-02-12] MEDS: HYDROmorphone HCl 1 MG/ML SYRINGE 0.5 MG IVPUSH ×3 (12:32→22:04)
--- NOTE | 2022-02-12 14:03 | P.DS_ITS ---
DS: Providers Provider Date of Service: 02/13/22 Date of admission: 02/10/22 22:47 Primary care physician: John Paul Rosenthal DO Consults: 02/10/22 22:47 Consult to Neurology Routine Consulting Provider: [facility] Reason for consultation: rt side weakn/numb 02/10/22 22:50 Addiction Medicine Routine Consulting Provider: Trinidad Gutierrez Reason for consultation: pt on suboxone DS: Diagnosis Discharge Diagnosis (1) Spinal cord lesion: Status: Acute DS: Summary Hospital Course Hospital Course: from initial hpi: Chief Complaint:? right-sided weakness/numbness ?51-year-old male with a past medical history of opiate dependence- remote use of IV drugs, schizophrenia presented to the hospital with a chief complaint of right neck pain/arm pain /right-sided chest pain /right arm and right leg weakness/ numbness.? Patient reports that for the past 4 days he has been having right neck pain arm pain associated right-sided chest pain; was recently seen in the ER and was given prednisone; but for past 2 days he noted right upper and lower extremity weakness/numbness; hence decided to come to the ER for further evaluation.? Denies any headaches, falls or trauma.? Denies any? recent viral infection, GI symptoms.? ?patient denied any stool accident or urinary retention Review of all other systems is negative except mentioned above ER course: Per ER team patient noted her right upper and lower extremity weakness compared to the left side; sensations were equal; CT head showed no acute findings; MRI of the brain and? 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 but no beds available; then Neurology recommended to admit to [facility] and to start the patient on 1000 mg of Solu-Medrol. hospital course: Patient was admitted for right hemiparesis due to C1-C2 lesion of uncertain etiology. He was given empiric high-dose Solu-Medrol without improvement. He started to have worsening left-sided decreased sensation. After discussing with Neurology decision was made to reach out to tertiary center for acute care transfer. Patient was accepted by [facility]. First opiate dependence in remission he was continued on Suboxone. For his history of schizophrenia he was continued on benztropine, oxcarbazepine, perphenazine. Time Spent with Patient Time attestation: Total time spent providing and/or coordinating discharge services: Discharge coordination time: Greater than 30 minutes Quality: Safe Use of Opioids Does Pt have an Active Cancer Diagnosis on the Problem List?: No Quality: Stroke Does the patient have a stroke diagnosis?: No Physical Exam Vital Signs: Vital Signs: Last Vital Signs Temp 98.5 F 02/12/22 11:12 Pulse 61 02/12/22 11:12 Resp 18 02/12/22 11:12 BP 161/80 H 02/12/22 11:12 Pulse Ox 97 02/12/22 11:12 BMI result Body Mass Index 31.8 General: AO X 3, no acute distress Resp: CTA bilateral, no accessory muscles used CVS: S1,S2,RRR GI: soft, non tender, non distended Neuro: 4+/5 Right prox upper and lower, 2+/5 distal right upper and low, decreased sensation, left strength intact, sensation diminished, out loud counting in one breath - 8 seconds. neck flexion and extension intact. VC - 2L Psych: appropriate affect, appropriate insight DS: Data Data Completed and Pending Labs on day of discharge: Laboratory Results - last 24 hr 02/12/22 02/12/22 06:50 06:50 WBC 15.8 H RBC 5.10 Hgb 16.1 Hct 47.1 MCV 92.4 MCH 31.6 MCHC 34.2 RDW 13.5 Plt Count 239 MPV 10.1 Absolute Nucleated RBC 0.000 Nucleated RBC % (auto) 0.0 Sodium 139 Potassium 4.2 Chloride 107 Carbon Dioxide 23 Anion Gap 13 BUN 18 H Creatinine 0.98 Estim Creat Clear Calc 86.1 Estimated GFR > 60 Fasting Glucose 140 H D Calcium 9.4 Preliminary micro results at discharge 02/10/22 16:40 Blood Culture - Preliminary Blood - Venous No growth after 24 hours. 02/10/22 16:40 Blood Culture - Preliminary Blood - Venous No growth after 24 hours. Discharge Plan Discharge Patient Disposition: Xfer Acute Care Hospital Discharge Diagnosis: right hemipareiss, c1-2 lesion Referrals: John Paul Rosenthal DO [Primary Care Provider] - 1 Week Discharge Medications: Continued benztropine 0.5 mg Tablet 0.5 mg PO BID@0830,2100 30 Days Qty: 60 0RF buprenorphine-naloxone [Suboxone] 8-2 mg Film 1 film sublingual DAILY 5 Days 0RF buprenorphine-naloxone [Suboxone] 4-1 mg film 0.5 film sublingual DAILY@1700 0RF naproxen 500 mg tablet 500 mg PO BID PRN (Reason: pain) Qty: 20 0RF oxcarbazepine 600 mg tablet 600 mg PO BID 0RF perphenazine 8 mg tablet 8 mg PO BEDTIME 0RF Discontinued prednisone 20 mg tablet 40 mg PO DAILY Qty: 10 0RF Discharge Orders: Discharge Order (Routine); Ordered 02/12/22 Ordered By: John Liu Diet: advance to usual diet Activity on Discharge: As tolerated Stand Alone Forms: Patient Portal Discharge page Care Plan Goals: recovery Health Concerns: c1-2 lesion with right hemiparesis, starting to have some left sided symptoms Plan of Treatment: transfer to [facility] for further care Assessment: see above
[2022-02-12] MEDS: Enoxaparin Sodium 40 MG/0.4 ML SYRINGE SUBCUT (14:19)
--- NOTE | 2022-02-12 14:32 | P.PNIM_ITS ---
Subjective Subjective Date of Service: 02/12/22 Interval History: cc: right hemiparesis interval history: now with decreased sensation on left, no sob Cardiovascular Cardiovascular: Reports no additional cardiovascular complaints Respiratory Respiratory: Reports no additional respiratory complaints Physical Exam Vital Signs: Vital Signs: Last Vital Signs Temp 98.5 F 02/12/22 11:12 Pulse 61 02/12/22 11:12 Resp 18 02/12/22 11:12 BP 161/80 H 02/12/22 11:12 Pulse Ox 97 02/12/22 11:12 BMI result Body Mass Index 31.8 General: AO X 3, no acute distress Resp: CTA bilateral, no accessory muscles used CVS: S1,S2,RRR GI: soft, non tender, non distended Neuro: rigth hemiparesis, decreased sensation on left Psych: appropriate affect, appropriate insight Objective Data Active Medications Acetaminophen (Acetaminophen 325 Mg Tablet) 650 mg PO Q6H PRN PRN Reason: Pain, Mild (Pain Scale 1-3) Last Admin: 02/12/22 12:31 Dose: 650 mg Documented by: HERB-CLAUDIO Benztropine Mesylate (Benztropine Mesylate 0.5 Mg Tablet) 0.5 mg PO BID@0830,2100 [facility] Last Admin: 02/12/22 10:03 Dose: 0.5 mg Documented by: DONYA Enoxaparin Sodium (Enoxaparin Sodium 40 Mg/0.4 Ml Syringe) 40 mg SUBCUT Q24H [facility] Last Admin: 02/12/22 14:19 Dose: 40 mg Documented by: DONYA Hydromorphone HCl (Hydromorphone Hcl 1 Mg/Ml Syringe) 0.5 mg IVPUSH Q4H PRN; Protocol PRN Reason: Pain, Severe (Pain Scale 7-10) Last Admin: 02/12/22 12:32 Dose: 0.5 mg Documented by: HERB-CLAUDIO Methylprednisolone Sodium Succinate 1,000 mg/ Sodium Chloride 66 mls @ 66 mls/hr IV Q24H [facility] Stop: 02/12/22 21:59 Last Infusion: 02/11/22 22:30 Dose: 0 mls/hr Documented by: NAUMOC Melatonin (Melatonin 3 Mg Tablet) 6 mg PO BEDTIME PRN PRN Reason: Insomnia Last Admin: 02/11/22 20:57 Dose: 6 mg Documented by: XANDER Nicotine (Nicotine 21 Mg Patch.Td24) 21 mg TRANSDERMA DAILY [facility] Last Admin: 02/12/22 10:03 Dose: 21 mg Documented by: HERB-CLAUDIO Oxcarbazepine (Oxcarbazepine 300 Mg Tablet) 600 mg PO BID [facility] Last Admin: 02/12/22 10:03 Dose: 600 mg Documented by: DONYA Perphenazine (Perphenazine 8 Mg Tablet) 8 mg PO BEDTIME [facility] Last Admin: 02/11/22 20:57 Dose: 8 mg Documented by: XANDER Pharmacy Consult (Consult Rx Perform Med Rec) 1 each MISCELLANE ONCE PRN PRN Reason: Consult order Senna (Sennosides 8.6 Mg Tablet) 17.2 mg PO BEDTIME PRN PRN Reason: Constipation Last Admin: 02/11/22 20:56 Dose: 17.2 mg Documented by: XANDER Sodium Chloride (0.9 % Sodium Chloride Flush 3 Ml Syringe) 3 ml IVFLUSH QSHIFT [facility] Last Admin: 02/12/22 14:19 Dose: Not Given Documented by: DONYA Non-Admin Reason: assessed Labs CBC & Chem 7: 02/12/22 06:50 02/12/22 06:50 Labs: Laboratory Results - last 24 hr 02/12/22 02/12/22 06:50 06:50 MCV 92.4 MCH 31.6 MCHC 34.2 RDW 13.5 Plt Count 239 MPV 10.1 Absolute Nucleated RBC 0.000 Nucleated RBC % (auto) 0.0 Anion Gap 13 Estim Creat Clear Calc 86.1 Estimated GFR > 60 Fasting Glucose 140 H D Calcium 9.4 Microbiology Microbiology Results: Microbiology 02/10/22 16:40 Blood Culture - Preliminary Blood - Venous No growth after 24 hours. 02/10/22 16:40 Blood Culture - Preliminary Blood - Venous No growth after 24 hours. Assessment and Plan (1) Spinal cord lesion: Status: Acute Plan 51M presented with right hemiparesis right hemiparesis due to C1-c2 lesion of uncertain etiology continue empiric steroids infection unlikely worsening symptoms with left numbness plan to transfer to [facility] psychiatric disorder continue home meds opiate dependence suboxone dvt prophylaxis - lovenox reason for continued hospitalization: high risk worsening neuro symtpoms, plan to transfer to [facility] Stroke Does the patient have a stroke diagnosis?: No VTE Prior VTE?: No VTE Risk Level:: Medical - moderate - high VTE Device Contraindication: N/A - Device Ordered VTE Drug Contraindication: Treatment Not Indicated
--- NOTE | 2022-02-12 17:25 | PC.NURSE ---
pt c/o increased n/t right side of body (RUE, RLE & right side of neck) now radiating to abd area. informed. md assessed pt at bedside. pt to be xfer'ed to [facility]. report given to [facility] fence erector supervisor. per [facility] fence erector supervisor no beds are currently available but they will call [facility] daily to update. pt abd distended, BSx4, per pt last bm was 4 days ago. pt requested laxatives, md informed. pain meds administered as ordered w/ + effect. safety and fall precautions maintained. call bruner within reach. pt repo self while in bed and on recliner.
--- NOTE | 2022-02-12 17:42 | ECG_ITS ---
Test Reason : ekg Blood Pressure : / mmHG Vent. Rate : 054 BPM Atrial Rate : 054 BPM P-R Int : 120 ms QRS Dur : 110 ms QT Int : 452 ms P-R-T Axes : 064 009 003 degrees QTc Int : 428 ms Sinus bradycardia Possible Left atrial enlargement Borderline ECG When compared with ECG of 12-FEB-2022 17:42, No significant change was found Referred By: John Liu Electronically Signed By:Luther Pat
[2022-02-12] MEDS: polyethylene glycoL 3350 17 GM POWD.PACK PO (18:30)
[2022-02-12] MEDS: Perphenazine 8 MG TABLET PO (20:21)
[2022-02-12] MEDS: methylPREDNISolone Sod Succ 1,000 MG in 0.9 % Sodium Chloride 50 ML 66 MG IV (21:07)
[2022-02-12] MEDS: 0.9 % Sodium Chloride Flush 3 ML SYRINGE IVFLUSH ×2 (23:47)
[2022-02-13] MEDS: diphenhydrAMINE HCL 25 MG TABLET PO (00:32)
[2022-02-13 03:23] VITALS: BP 134/83; PULSE 57; RESP 18; TEMP 36.4; O2SAT 95
[2022-02-13] MEDS: HYDROmorphone HCl 1 MG/ML SYRINGE 0.5 MG IVPUSH ×2 (06:44→12:25)
[2022-02-13] MEDS: Acetaminophen 325 MG TABLET 650 MG PO (06:49)
[2022-02-13 07:55] VITALS: BP 139/86; PULSE 57; RESP 20; TEMP 36.9; O2SAT 96
[2022-02-13] MEDS: Benztropine Mesylate 0.5 MG TABLET PO (09:09)
[2022-02-13] MEDS: OXcarbazepine 300 MG TABLET 600 MG PO (09:09)
[2022-02-13] MEDS: 0.9 % Sodium Chloride Flush 3 ML SYRINGE IVFLUSH (09:10)
[2022-02-13] MEDS: Nicotine 21 MG PATCH.TD24 TRANSDERMA (09:11)
[2022-02-13 11:34] VITALS: BP 131/81; PULSE 53; RESP 20; TEMP 36.8; O2SAT 94
--- NOTE | 2022-02-13 12:52 | MHC.CM.PN ---
PT WILL BE TRANSFERRED TO [facility] TODAY [facility]IA [facility]
== END 2022-02-13 12:48 | disposition short-term general hospital (02) | DRG 92 ==
LOC: HO.ED 17:52 → HO.EDOVER 22:51 → HO.IMC 02-11 14:40
PROVIDERS: Nurse Practitioner Family; Admitting Provider Hospitalist; Emergency Provider Emergency Medicine Emergency Medical Services; PCP Family Medicine Adult Medicine; Visit Provider Internal Medicine
DX: G95.9 Disease of spinal cord, unspecified (principal); F11.20 Opioid dependence, uncomplicated; G81.91 Hemiplegia, unspecified affecting right dominant side; F20.9 Schizophrenia, unspecified; F17.210 Nicotine dependence, cigarettes, uncomplicated; R33.9 Retention of urine, unspecified; Z20.822 Contact with and (suspected) exposure to COVID-19; Z71.6 Tobacco abuse counseling; Z88.8 Allergy status to other drugs, medicaments and biological substances; Z79.899 Other long term (current) drug therapy
CPT/HCPCS: 36415; 70450; 70553; 71045; 72156; 80048; 80076; 80307; 81001; 82550; 83605; 83735; 84484; 85025; 85027; 85610; 85652; 86140; 87040; 87635; 93005; 94010; 96361; 96365; 96367; 96375; 97161; 97167; 99285; 99291; A9585; J0696; J1170; J1650; J1885; J2930; Q0163

== ENCOUNTER 2022-02-16 16:54 | Inpatient (IN) | payer MEDICARE, MEDICAID, SELFPAY ==
--- NOTE | 2022-02-16 | ECG_ITS ---
Test Reason : low hr Blood Pressure : / mmHG Vent. Rate : 055 BPM Atrial Rate : 055 BPM P-R Int : 132 ms QRS Dur : 082 ms QT Int : 430 ms P-R-T Axes : 051 028 -02 degrees QTc Int : 411 ms Sinus bradycardia Possible Left atrial enlargement Borderline ECG No previous ECGs available Referred By: Anam Meier Electronically Signed By:JAKE DAVILA MD
--- NOTE | ~2022-02-16 | CT_ITS ---
EXAMINATION: CT HEAD WITHOUT CONTRAST CLINICAL INFORMATION: Fall COMPARISON: 02/10/2022 TECHNIQUE: Contiguous axial imaging was performed from the skull base to vertex without intravenous administration of contrast. This CT examination was performed using dose optimization techniques as appropriate, variously including the following: *Automated exposure control *Adjustment of mA and/or kV according to patient size (this includes techniques or standardized protocols for targeted exams where dose is matched to indication/reason for exam; i.e. extremities or head) *Use of iterative reconstruction technique DLP: 796 mGy-cm FINDINGS: There is no evidence of acute intracranial hemorrhage or territorial infarction. No abnormal mass effect or midline shift is seen. [place] to white matter differentiation is well preserved. No extra-axial fluid collections are identified. The ventricles are normal in size. Small hypoattenuating foci in the bilateral ganglia are redemonstrated. The osseous structures and soft tissues are normal. The mastoid air cells and visualized portions of the paranasal sinuses are well aerated. CT/CT head/brain wo con IMPRESSION: No acute intracranial pathology.
--- NOTE | ~2022-02-16 | XR_ITS ---
EXAMINATION: XR ELBOW, RIGHT CLINICAL INFORMATION: Pain after fall COMPARISON: None TECHNIQUE: AP, lateral, and oblique views of the right elbow. FINDINGS: Osseous alignment is anatomic. No acute fracture is seen. No appreciable effusion. No significant focal soft tissue abnormality identified. XR/XR elbow RT 2V IMPRESSION: No acute findings identified.
--- NOTE | ~2022-02-16 | XR_ITS ---
EXAMINATION: XR SHOULDER, RIGHT CLINICAL INFORMATION: Fall, pain COMPARISON: None TECHNIQUE: Three views of the right shoulder. FINDINGS: Glenohumeral alignment appears anatomic. No acute fracture is seen. The acromioclavicular joint appears intact with mild degenerative change. XR/XR shoulder RT min 2V IMPRESSION: No acute findings identified.
--- NOTE | 2022-02-16 15:18 | P.HPHOSP_ITS ---
History of Present Illness Date of Service: 02/16/22 Chief Complaint: Right sided weakness in summary, A 51 years old male with PMH remote IVDU, schizophrenia who presented to the hospital on February 10 with right-sided neck pain. evaluated with MRI of the head and neck that showed a lesion in C1-C2. Evaluated by Neurology who recommended transfer [place] [facility] [place] receiving 1 g of Solu-Medrol. [place] [facility] [place] was evaluated by neuro surgery team and Urology as repeated images did not show any progression of the disease. Suggested the patient was returned back to [facility] to get treated with IVIG. Review of Systems Review of Systems: No fever, chills but report and changed weakness in his right side of the body No chest pain, palpitation No shortness of breath or coughing No abdominal pain, nausea or vomiting No urinary symptoms No any rash or wounds PMFSH Medical History Psychosis Schizophrenia Substance abuse Family History Father Medical history unknown Mother Medical history unknown Surgical History History of liver biopsy Social History Household Members: None Housing: Apartment Do you presently have visiting nurse or other home services: No Patient Tobacco Use Status: Current everyday Tobacco user Tobacco use type: Cigarette Cigarette Packs Per Day: 1 Cigarettes Per Day: 20.0 Smoked in Last 30 Days: Yes e-Cigarette/Vaping Use: Never Used Patient Interested in Nicotine Replacement: Yes (has one [place] [facility] Second Hand Smoke Exposure: No Use of substances other than those prescribed or required for medical reasons: Yes Substance Use Type: Crack/Cocaine and Marijuana Substance Use Frequency: Chronic Longstanding Last Used Substance: Weeks (ago) Last Used Substance Other:: 5-6 months ago Currently Displaying Signs/Symptoms of Drug Intoxication Withdrawal: No Any prior treatment program specific to substance use: Yes (was on suboxone) Have you been hit, kicked, punched, or otherwise hurt by someone within the past year? If so, by whom?: No Do you feel safe in your current relationship?: No Current Relationship Is there a partner from a previous relationship who is making you feel unsafe now?: No Are you made to feel afraid or neglected: No Advance Directives: No Advance Directives Information Provided: No Advance Directives on File: No (states Mom was named as HCP) Do you have thoughts of harming others: None Do you have a plan to hurt others: No Plan Recently lost weight without trying: No Eating poorly because of decreased appetite: No Nutrition Risks: No Nutritional Risk Poor oral hygiene: No service: No Current occupational status: disabled Cognitive needs: No Hearing needs: No Vision needs: No Meds Allergies Allergy/AdvReac Type Severity Reaction Status Date / Time haloperidol [From HALDOL] Allergy Intermediate UNKNOWN Verified 08/05/21 13:57 Active Medications: Current Medications Acetaminophen (Acetaminophen 325 Mg Tablet) 650 mg PO Q6H PRN PRN Reason: Pain, Mild (Pain Scale 1-3) Enoxaparin Sodium (Enoxaparin Sodium 40 Mg/0.4 Ml Syringe) 40 mg SUBCUT Q24H CHANDA Ondansetron HCl (Ondansetron Hcl 4 Mg/2 Ml Vial) 4 mg IVPUSH Q8H PRN PRN Reason: Nausea and Vomiting Pharmacy Consult (Consult Rx Perform Med Rec) 1 each MISCELLANE ONCE PRN PRN Reason: Consult order Sodium Chloride (0.9 % Sodium Chloride Flush 3 Ml Syringe) 3 ml IVFLUSH QSHIFT [facility] Home Medications Medication Instructions Recorded Confirmed Last Taken Type oxcarbazepine 600 mg tablet 600 mg PO BID 07/05/21 02/16/22 02/16/22 History perphenazine 8 mg tablet 8 mg PO BEDTIME 07/05/21 02/16/22 02/15/22 History Physical Exam Const: Other: Constitutional : Alert, oriented, not in distress Neck : Normal inspection, Supple Cardiovascular : RRR, no JVP, no lower extremity edema Respiratory : fair bilateral air entry, no crackles, wheezes or rhonchi Gastrointestinal: soft, lax, Normal bowel sounds, Non tender Skin : Warm, Dry Neurological : Alert & oriented x3, Right upper extremity power of 3/5 RLE 4/5, CN 2-12 within normal Results Labs CBC and Chem 7: 02/17/22 05:36 02/17/22 05:36 Assessment and Plan (1) Spinal cord lesion: Status: Acute (2) Right hemiparesis: Status: Acute (3) Weakness: Status: Acute Plan A 51 years old male with PMH remote IVDU, schizophrenia who presented to the hospital on February 10 with right-sided neck pain.? transferred back from [facility] for further medical treatment. right hemiparesis due to C1-c2 lesion possible Transverse myelitis/ autoimmune disorder received empiric steroids lumbar puncture ruled out infection neurology consult Consider IVIG treatment pain management with morphine psychiatric disorder continue home meds opiate dependence suboxone dvt prophylaxis lovenox the patient will need 2 overnight hospital stay for high risk worsening neuro symtpoms with a plan for IVIG treatment Quality Stroke Does the patient have a stroke diagnosis?: No VTE Prior VTE?: No VTE Risk Level:: Medical - moderate - high VTE Device Contraindication: Treatment Not Indicated VTE Drug Contraindication: N/A - Med Ordered
[2022-02-16 16:00] VITALS: BP 140/84; PULSE 64; RESP 16; TEMP 37; O2SAT 95
--- NOTE | 2022-02-16 17:23 | PHA.MEDREC ---
Pharmacy Consult ? Medication Reconciliation Pharmacy has completed the medication reconciliation.
[2022-02-16] MEDS: Morphine Sulfate 2 MG/ML CARTRIDGE IVPUSH (18:48)
[2022-02-16] MEDS: 0.9 % Sodium Chloride Flush 3 ML SYRINGE IVFLUSH (18:49)
[2022-02-16 19:17] VITALS: BP 138/90; PULSE 69; RESP 18; TEMP 36.6; O2SAT 96
[2022-02-16] MEDS: Benztropine Mesylate 0.5 MG TABLET PO (20:29)
[2022-02-16] MEDS: OXcarbazepine 300 MG TABLET 600 MG PO (20:29)
[2022-02-16] MEDS: Perphenazine 8 MG TABLET PO (20:56)
[2022-02-16] MEDS: DULoxetine HCl 20 MG CAPSULE.DR 40 MG PO (22:25)
[2022-02-16] MEDS: Gabapentin 600 MG TABLET PO (22:25)
[2022-02-16] MEDS: traZODone HCL 50 MG TABLET PO (22:26)
[2022-02-16 23:53] VITALS: BP 118/77; PULSE 56; RESP 18; TEMP 37.2; O2SAT 94
[2022-02-17] VITALS (7 sets, daily range): BP systolic 107–150; BP diastolic 63–85; PULSE 60–84; RESP 17–18; TEMP 36.2–36.8; O2SAT 94–97; BMI 27.3
[2022-02-17] MEDS: 0.9 % Sodium Chloride Flush 3 ML SYRINGE IVFLUSH ×2 (04:35→07:46)
[2022-02-17] MEDS: Morphine Sulfate 4 MG/ML CARTRIDGE IVPUSH (05:24)
[2022-02-17 06:08] LABS: Hematocrit 46.2 % (42.0-52.0); Mean Corpuscular HGB Conc 34.6 g/dl (31.0-36.0); Mean Corpuscular Hemoglobin 31.6 pg (27.0-33.0); Mean Corpuscular Volume 91.3 fL (80.0-98.0); Mean Platelet Volume 9.4 fL (9.4-12.4); Platelet Count 238 X10*3/uL (160-400); Red Blood Count 5.06 X10*6/uL (4.60-5.80); Red Cell Distribution Width 13.6 % (11.0-16.0); White Blood Count 12.5 X10*3/uL (4.8-10.8)
--- NOTE | 2022-02-17 06:27 | PC.NURSE ---
HEART RATE NOTED SB AT REPORT CHANGE OF SHIFT TIME, HR 48 ON MONITOR AND REPORTED TO HOSPITALIST ON DUTY BY 3-11 RN. MD ORDERED AN EKG READING TO BE DONE. PT NOTED TO BE RESTING WELL, HR TO 60 S AND ONLY IN MID 40 S FOR VERY SHORT TIME. ALSO NOTED PT HAD BEEN MEDICATED PRIOR ON 11 TIME. VITALS AT 0000, [id number] WITH O2 SAT LEVEL 94% RA. HOSPITALIST ON UNIT AND UPDATED AND OKAY TO GET EKG WHEN PATIENTS AWAKENS OR IF HR LOWERS AGAIN. EKG DONE WITH [facility] STAFF ASSISTANCE AND RESULTS SENT TO MD WITH NO NEW ORDERS. PT WAS AWAKE, VOIDED, MEDICATED, REPOSITIONED, AND BACK TO RESTING AT 0500.
[2022-02-17 06:28] LABS: Anion Gap 11 (12-20); Blood Urea Nitrogen 13 mg/dL (9-16); Calcium 8.8 mg/dL (8.4-10.2); Carbon Dioxide 25 mmol/L (22-29); Chloride 102 mmol/L (96-108); Estimated Glomerular Filt Rate > 60; Glucose Random 89 mg/dL (60-115); Potassium 4.4 mmol/L (3.3-5.1); Sodium 134 mmol/L (135-145)
[2022-02-17] MEDS: Gabapentin 600 MG TABLET PO ×3 (07:44→20:18)
[2022-02-17] MEDS: Benztropine Mesylate 0.5 MG TABLET PO ×2 (07:44→20:18)
[2022-02-17] MEDS: Lidocaine 4 % Patch ADH..PATCH 2 PATCH TRANSDERMA (07:44)
[2022-02-17] MEDS: OXcarbazepine 300 MG TABLET 600 MG PO ×2 (07:44→20:17)
[2022-02-17] MEDS: DULoxetine HCl 20 MG CAPSULE.DR 40 MG PO ×2 (07:44→20:17)
[2022-02-17] MEDS: Enoxaparin Sodium 40 MG/0.4 ML SYRINGE SUBCUT (07:46)
--- NOTE | 2022-02-17 10:00 | P.PNIM_ITS ---
Subjective Subjective Date of Service: 02/18/22 Interval History: f/u on right hemipareisis, C1-C2 lesion interval history: noticing incrental improvement in right hand Review of Systems right sided weakness/paralysis no fever Physical Exam Vital Signs: Vital Signs: Last Vital Signs Temp 97.2 F 02/17/22 08:00 Pulse 60 02/17/22 08:08 Resp 18 02/17/22 08:00 BP 120/80 02/17/22 08:08 Pulse Ox 96 02/17/22 08:08 BMI result Body Mass Index 27.3 Const: Other: General: AO X 3, no acute distress Resp: CTA bilateral CVS: S1,S2,RRR GI: +BS, NT, no distention Skin: No rash Neuro: right hand is completly paralyzed other than slight movment in ht right hand Psych: appropriate affect Objective Data Active Medications Acetaminophen (Acetaminophen 325 Mg Tablet) 650 mg PO Q6H PRN PRN Reason: Pain, Mild (Pain Scale 1-3) Benzocaine (Throat Lozenge, Medicated Lozenge) 1 lozenge MUCOUS MEM Q2H PRN PRN Reason: Sore Throat Benztropine Mesylate (Benztropine Mesylate 0.5 Mg Tablet) 0.5 mg PO BID@0830,2100 [facility] Last Admin: 02/17/22 07:44 Dose: 0.5 mg Documented by: JAI Duloxetine HCl (Duloxetine Hcl 20 Mg Capsule.Dr) 40 mg PO BID [facility] Last Admin: 02/17/22 07:44 Dose: 40 mg Documented by: JAI Enoxaparin Sodium (Enoxaparin Sodium 40 Mg/0.4 Ml Syringe) 40 mg SUBCUT Q24H [facility] Last Admin: 02/17/22 07:46 Dose: 40 mg Documented by: JAI Gabapentin (Gabapentin 600 Mg Tablet) 600 mg PO TID [facility] Last Admin: 02/17/22 07:44 Dose: 600 mg Documented by: JAI Lidocaine (Lidocaine 4 % Patch Adh..Patch) 2 patch TRANSDERMA DAILY [facility]; Protocol Last Admin: 02/17/22 07:44 Dose: 2 patch Documented by: JAI Naproxen (Naproxen 500 Mg Tablet) 500 mg PO Q12H PRN PRN Reason: Pain, Mild (Pain Scale 1-3) Ondansetron HCl (Ondansetron Hcl 4 Mg/2 Ml Vial) 4 mg IVPUSH Q8H PRN PRN Reason: Nausea and Vomiting Oxcarbazepine (Oxcarbazepine 300 Mg Tablet) 600 mg PO BID [facility] Last Admin: 02/17/22 07:44 Dose: 600 mg Documented by: JAI Perphenazine (Perphenazine 8 Mg Tablet) 8 mg PO BEDTIME [facility] Last Admin: 02/16/22 20:56 Dose: 8 mg Documented by: ALFRED Pharmacy Consult (Consult Rx Perform Med Rec) 1 each MISCELLANE ONCE PRN PRN Reason: Consult order Sodium Chloride (0.9 % Sodium Chloride Flush 3 Ml Syringe) 3 ml IVFLUSH QSHIFT [facility] Last Admin: 02/17/22 07:46 Dose: 3 ml Documented by: JAI Trazodone HCl (Trazodone Hcl 50 Mg Tablet) 50 mg PO BEDTIME [facility] Last Admin: 02/16/22 22:26 Dose: 50 mg Documented by: ALFRED Labs CBC & Chem 7: 02/17/22 05:36 02/17/22 05:36 Labs: Laboratory Results - last 24 hr 02/17/22 02/17/22 02/17/22 05:36 05:36 05:36 MCV 91.3 Cancelled MCH 31.6 Cancelled MCHC 34.6 Cancelled RDW 13.6 Cancelled Plt Count 238 Cancelled MPV 9.4 Cancelled Absolute Nucleated RBC 0.000 Cancelled Nucleated RBC % (auto) 0.0 Cancelled Anion Gap 11 L Estim Creat Clear Calc TNP Estimated GFR > 60 Random Glucose 89 Calcium 8.8 D 02/17/22 05:36 MCV MCH MCHC RDW Plt Count MPV Absolute Nucleated RBC Nucleated RBC % (auto) Anion Gap Cancelled Estim Creat Clear Calc Cancelled Estimated GFR Cancelled Random Glucose Cancelled Calcium Cancelled Assessment and Plan (1) Spinal cord lesion: Status: Acute (2) Right hemiparesis: Status: Acute Plan 51 years old male with PMH remote IVDU, schizophrenia admitted to [place] on 02/10 with Neck pain, right hemiparesis C1-2 lesion, trasferred to [facility], Neuro Surg no intervtion and advised IVIG treatment for possible autoimmune process vs transerve mylitis? Right hemiparesis due to C1-c2 lesion--No intervention according to [facility] Neuro Surg -Lumbar puncture at [facility] no infection -IVIG possible Transverse myelitis/ autoimmune disorder vs MS.. -Neurology is recommending: PTOT.? Followup MRI of the cervical spine with and without gadolinium in 2 weeks, IVIG D#2/5 Schizophrenia--benztropine, oxcarbazepine, perphenazine. opiate dependence suboxone dvt prophylaxis ?lovenox Need for admission: Hemiparesisi requiring Intravenous IVIG Quality Stroke Does the patient have a stroke diagnosis?: No VTE Prior VTE?: No VTE Risk Level:: Medical - moderate - high VTE Device Contraindication: Treatment Not Indicated VTE Drug Contraindication: N/A - Med Ordered
[2022-02-17] MEDS: 0.9 % Sodium Chloride 1,000 ML 500 ML IVCONT (12:02)
--- NOTE | 2022-02-17 12:18 | MHC.CM.PN ---
IMM 02/17/22, EMR REVIEWED, PT TRANSFERRED BACK FROM [facility] WITH [facility], PER HOSPITALIST PT WILL NEED 5 DAYS IV IG PRIOR TO D/C W/FIRST DOSE TODAY, PT IS RECOMMENDING ACUTE REHAB AND OT EVAL HAS BEEN COMPLETED WELL. CM MET W/PT FOR INTAKE AND TO REVIEW PLAN, PT AWARE HE WILL REMAIN INPT X5 DAYS AND CM DISCUSSED PT REC'S FOR [facility], CM REVIEWED [facility] OPTIONS W/PT AND PT REPORTS HE PREFERS NOT TO GO TO [place] IT IS ATTACHED TO [facility], PT UNSURE IF HE WOULD PREFER [place] OR [facility] HOWEVER CM WILL PLACE REFERRALS FOR BOTH WHEN IT GETS CLOSER TO D/C. PT INDEP W/ALL CARE, HAS [facility] NURSE BID FOR [facility] [facility] OPERATOR, PT VERIFIES PCP IS ADELA CADENA, CHIRAG VACCINE X3 AND REPORTS HE COMPLETED A HCP WHEN HE WAS AT [facility] WITH [facility] NAMING HIS SISTER MARIE MICHEL [phone] D/C PLAN: ACUTE REHAB [facility]
--- NOTE | 2022-02-17 13:47 | PM.NEUROCN ---
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 He was sent to [facility] in his back. He had one dose of IV steroids. His strength seems to be improving. MRI of the brain shows a few subtle periventricular white matter lesions Review of Systems Review of Systems: right sided weakness/paralysis no fever PMFSH Past Medical History Medical History Psychosis Schizophrenia Substance abuse Family History Family History Father Medical history unknown Mother Medical history unknown Surgical History Surgical History History of liver biopsy Social History Social History Household Members: None Housing: Apartment Do you presently have visiting nurse or other home services: No Patient Tobacco Use Status: Current everyday Tobacco user Tobacco use type: Cigarette Cigarette Packs Per Day: 1 Cigarettes Per Day: 20.0 Smoked in Last 30 Days: Yes e-Cigarette/Vaping Use: Never Used Patient Interested in Nicotine Replacement: Yes (has one on from [facility]) Second Hand Smoke Exposure: No Use of substances other than those prescribed or required for medical reasons: Yes Substance Use Type: Crack/Cocaine and Marijuana Substance Use Frequency: Chronic Longstanding Last Used Substance: Weeks (ago) Last Used Substance Other:: 5-6 months ago Currently Displaying Signs/Symptoms of Drug Intoxication Withdrawal: No Any prior treatment program specific to substance use: Yes (was on suboxone) Have you been hit, kicked, punched, or otherwise hurt by someone within the past year? If so, by whom?: No Do you feel safe in your current relationship?: No Current Relationship Is there a partner from a previous relationship who is making you feel unsafe now?: No Are you made to feel afraid or neglected: No Advance Directives: No Advance Directives Information Provided: No Advance Directives on File: No (states Mom was named as HCP) Do you have thoughts of harming others: None Do you have a plan to hurt others: No Plan Recently lost weight without trying: No Eating poorly because of decreased appetite: No Nutrition Risks: No Nutritional Risk Poor oral hygiene: No service: No Current occupational status: disabled Cognitive needs: No Hearing needs: No Vision needs: No Meds Allergies Allergy/AdvReac Type Severity Reaction Status Date / Time haloperidol [From HALDOL] Allergy Intermediate UNKNOWN Verified 08/05/21 13:57 Active Medications: Current Medications Acetaminophen (Acetaminophen 325 Mg Tablet) 650 mg PO Q6H PRN PRN Reason: Pain, Mild (Pain Scale 1-3) Acetaminophen (Acetaminophen 325 Mg Tablet) 650 mg PO DAILY@1300 [facility] Stop: 02/21/22 13:01 Benzocaine (Throat Lozenge, Medicated Lozenge) 1 lozenge MUCOUS MEM Q2H PRN PRN Reason: Sore Throat Benztropine Mesylate (Benztropine Mesylate 0.5 Mg Tablet) 0.5 mg PO BID@0830,2100 [facility] Last Admin: 02/17/22 07:44 Dose: 0.5 mg Documented by: Diphenhydramine HCl (Diphenhydramine Hcl 50 Mg/Ml Vial) 25 mg IVPUSH DAILY@1300 [facility] Stop: 02/21/22 13:01 Duloxetine HCl (Duloxetine Hcl 20 Mg Capsule.Dr) 40 mg PO BID [facility] Last Admin: 02/17/22 07:44 Dose: 40 mg Documented by: Enoxaparin Sodium (Enoxaparin Sodium 40 Mg/0.4 Ml Syringe) 40 mg SUBCUT Q24H [facility] Last Admin: 02/17/22 07:46 Dose: 40 mg Documented by: Gabapentin (Gabapentin 600 Mg Tablet) 600 mg PO TID [facility] Last Admin: 02/17/22 07:44 Dose: 600 mg Documented by: Sodium Chloride (Ns) 1,000 mls @ 500 mls/hr IVCONT DAILY@1100 [facility] Stop: 02/21/22 12:59 Last Admin: 02/17/22 12:02 Dose: 500 mls/hr Documented by: Immune Globulin (Gammagard 10%) 300 mls @ 37 mls/hr IV DAILY@1400 [facility] Stop: 02/21/22 22:07 Immune Globulin (Flebogamma 10%) 10 gm in 100 mls @ 37 mls/hr IV DAILY@1400 [facility] Stop: 02/17/22 16:43 Immune Globulin (Flebogamma 10%) 20 gm in 200 mls @ 37 mls/hr IV DAILY@1645 [facility] Stop: 02/17/22 22:10 Lidocaine (Lidocaine 4 % Patch Adh..Patch) 2 patch TRANSDERMA DAILY [facility]; Protocol Last Admin: 02/17/22 07:44 Dose: 2 patch Documented by: Methylprednisolone Sodium Succinate (Methylprednisolone Sod Succ 40 Mg/Ml Vial) 40 mg IVPUSH DAILY@1300 [facility] Stop: 02/21/22 13:01 Naproxen (Naproxen 500 Mg Tablet) 500 mg PO Q12H PRN PRN Reason: Pain, Mild (Pain Scale 1-3) Ondansetron HCl (Ondansetron Hcl 4 Mg/2 Ml Vial) 4 mg IVPUSH Q8H PRN PRN Reason: Nausea and Vomiting Oxcarbazepine (Oxcarbazepine 300 Mg Tablet) 600 mg PO BID [facility] Last Admin: 02/17/22 07:44 Dose: 600 mg Documented by: Perphenazine (Perphenazine 8 Mg Tablet) 8 mg PO BEDTIME [facility] Last Admin: 02/16/22 20:56 Dose: 8 mg Documented by: Pharmacy Consult (Consult Rx Perform Med Rec) 1 each MISCELLANE ONCE PRN PRN Reason: Consult order Sodium Chloride (0.9 % Sodium Chloride Flush 3 Ml Syringe) 3 ml IVFLUSH [facility] Last Admin: 02/17/22 07:46 Dose: 3 ml Documented by: Trazodone HCl (Trazodone Hcl 50 Mg Tablet) 50 mg PO BEDTIME [facility] Last Admin: 02/16/22 22:26 Dose: 50 mg Documented by: Home Medications Medication Instructions Recorded Confirmed Last Taken Type oxcarbazepine 600 mg tablet 600 mg PO BID 07/05/21 02/16/22 02/16/22 History perphenazine 8 mg tablet 8 mg PO BEDTIME 07/05/21 02/16/22 02/15/22 History Physical Exam Vital Signs: Vital Signs: Last Vital Signs Temp 97.9 F 02/17/22 11:32 Pulse 66 02/17/22 11:32 Resp 18 02/17/22 11:32 BP 121/73 02/17/22 11:32 Pulse Ox 95 02/17/22 11:32 BMI result Body Mass Index 27.3 Const: Other: General: AO X 3, no acute distress Resp: CTA bilateral CVS: S1,S2,RRR GI: +BS, NT, no distention Skin: No rash Neuro: right sided completly paralyzed other than slight movment in ht right hand Psych: appropriate affect Neuro: Other: Right hemiparalysis 3/5 upper extremities, 2/5 lower extremity with extensor plantar response Results Labs CBC & Chem 7: 02/17/22 05:36 02/17/22 05:36 Labs: Short CBC 02/17/22 02/17/22 Range/Units 05:36 05:36 WBC 12.5 H Cancelled (4.8-10.8) X10*3/uL Hgb 16.0 Cancelled (14.0-18.0) g/dl Hct 46.2 Cancelled (42.0-52.0) % Plt Count 238 Cancelled (160-400) X10*3/uL BMP 02/17/22 02/17/22 05:36 05:36 Sodium 134 L Cancelled Potassium 4.4 Cancelled Chloride 102 Cancelled Carbon Dioxide 25 Cancelled BUN 13 Cancelled Creatinine 0.73 Cancelled Calcium 8.8 D Cancelled Assessment and Plan (1) Spinal cord lesion: Status: Acute I suspect this is a acute MS lesion rather than a space-occupying lesion. Infectious etiology is unlikely. I would recommend high dose IV Solu-Medrol 1 g a day for 55 days. He has already been started on IVIG. PTOT. Followup MRI of the cervical spine with and without gadolinium in 2 weeks (2) Right hemiparesis: Status: Acute Plan 51 years old male with PMH remote IVDU, schizophrenia admitted to [place] on 02/10 with Neck pain, right hemiparesis C1-2 lesion, trasferred to [facility] [place], Neuro Surg no intervtion and advised IVIG treatment for possible autoimmune process vs transerve mylitis? right hemiparesis due to C1-c2 lesion--No intervention according to [facility] Neuro Surg -[place]bar puncture at [facility] no infection -IVIG possible Transverse myelitis/ autoimmune disorder -reconsult Neurology Schizophrenia--benztropine, oxcarbazepine, perphenazine. opiate dependence suboxone dvt prophylaxis ?lovenox Need for admission: Hemiparesisi requiring IVIG Procedures Date of Service Date of Service: 02/17/22
[2022-02-17] MEDS: Acetaminophen 325 MG TABLET 650 MG PO (14:30)
[2022-02-17] MEDS: diphenhydrAMINE HCL 50 MG/ML VIAL 25 MG IVPUSH (14:30)
[2022-02-17] MEDS: methylPREDNISolone Sod Succ 40 MG/ML VIAL IVPUSH (14:30)
[2022-02-17] MEDS: NaPROXEN 500 MG TABLET PO (17:06)
[2022-02-17] MEDS: Perphenazine 8 MG TABLET PO (20:18)
[2022-02-17] MEDS: traZODone HCL 50 MG TABLET PO (20:18)
[2022-02-18] MEDS: 0.9 % Sodium Chloride Flush 3 ML SYRINGE IVFLUSH ×3 (00:01→15:36)
[2022-02-18] MEDS: Acetaminophen 325 MG TABLET 650 MG PO ×3 (00:13→14:40)
[2022-02-18] MEDS: Morphine Sulfate 4 MG/ML CARTRIDGE IVPUSH (02:56)
[2022-02-18] MEDS: NaPROXEN 500 MG TABLET PO ×2 (05:38→17:36)
[2022-02-18 08:00] VITALS: BP 118/78; PULSE 66; RESP 19; TEMP 36.5; O2SAT 95
--- NOTE | 2022-02-18 09:07 | HO.PM.IMPN ---
Subjective Subjective Date of Service: 02/18/22 Interval History: f/u on right hemipareisis, C1-C2 lesion interval history: A little better this morning, was having shoulder pain last night Review of Systems right arm weakness no fever Physical Exam Vital Signs: Vital Signs: Last Vital Signs Temp 97.7 F 02/18/22 08:00 Pulse 66 02/18/22 08:00 Resp 19 02/18/22 08:00 BP 118/78 02/18/22 08:00 Pulse Ox 95 02/18/22 08:00 BMI result Body Mass Index 27.3 Const: Other: General: AO X 3, no acute distress Resp: CTA bilateral CVS: S1,S2,RRR GI: +BS, NT, no distention Skin: No rash Neuro: right hand is completly paralyzed other than slight movment in ht right hand Psych: appropriate affect Objective Data Active Medications Acetaminophen (Acetaminophen 325 Mg Tablet) 650 mg PO Q6H PRN PRN Reason: Pain, Mild (Pain Scale 1-3) Last Admin: 02/18/22 00:13 Dose: 650 mg Documented by: JESSICA Acetaminophen (Acetaminophen 325 Mg Tablet) 650 mg PO DAILY@1300 [facility] Stop: 02/21/22 13:01 Last Admin: 02/17/22 14:30 Dose: 650 mg Documented by: JAI Benzocaine (Throat Lozenge, Medicated Lozenge) 1 lozenge MUCOUS MEM Q2H PRN PRN Reason: Sore Throat Benztropine Mesylate (Benztropine Mesylate 0.5 Mg Tablet) 0.5 mg PO BID@0830,2100 [facility] Last Admin: 02/17/22 20:18 Dose: 0.5 mg Documented by: ALFRED Diphenhydramine HCl (Diphenhydramine Hcl 50 Mg/Ml Vial) 25 mg IVPUSH DAILY@1300 [facility] Stop: 02/21/22 13:01 Last Admin: 02/17/22 14:30 Dose: 25 mg Documented by: JAI Duloxetine HCl (Duloxetine Hcl 20 Mg Capsule.Dr) 40 mg PO BID [facility] Last Admin: 02/17/22 20:17 Dose: 40 mg Documented by: ALFRED Enoxaparin Sodium (Enoxaparin Sodium 40 Mg/0.4 Ml Syringe) 40 mg SUBCUT Q24H [facility] Last Admin: 02/17/22 07:46 Dose: 40 mg Documented by: JAI Gabapentin (Gabapentin 600 Mg Tablet) 600 mg PO TID [facility] Last Admin: 02/17/22 20:18 Dose: 600 mg Documented by: ALFRED Sodium Chloride (Ns) 1,000 mls @ 500 mls/hr IVCONT DAILY@1100 [facility] Stop: 02/21/22 12:59 Last Infusion: 02/17/22 14:36 Dose: 500 mls/hr Documented by: JAI Immune Globulin (Gammagard 10%) 300 mls @ 37 mls/hr IV DAILY@1400 [facility] Stop: 02/21/22 22:07 Lidocaine (Lidocaine 4 % Patch Adh..Patch) 2 patch TRANSDERMA DAILY [facility]; Protocol Last Admin: 02/17/22 07:44 Dose: 2 patch Documented by: JAI Methylprednisolone Sodium Succinate (Methylprednisolone Sod Succ 40 Mg/Ml Vial) 40 mg IVPUSH DAILY@1300 [facility] Stop: 02/21/22 13:01 Last Admin: 02/17/22 14:30 Dose: 40 mg Documented by: JAI Naproxen (Naproxen 500 Mg Tablet) 500 mg PO Q12H PRN PRN Reason: Pain, Mild (Pain Scale 1-3) Last Admin: 02/18/22 05:38 Dose: 500 mg Documented by: JESSICA Ondansetron HCl (Ondansetron Hcl 4 Mg/2 Ml Vial) 4 mg IVPUSH Q8H PRN PRN Reason: Nausea and Vomiting Oxcarbazepine (Oxcarbazepine 300 Mg Tablet) 600 mg PO BID [facility] Last Admin: 02/17/22 20:17 Dose: 600 mg Documented by: ALFRED Perphenazine (Perphenazine 8 Mg Tablet) 8 mg PO BEDTIME [facility] Last Admin: 02/17/22 20:18 Dose: 8 mg Documented by: ALFRED Pharmacy Consult (Consult Rx Perform Med Rec) 1 each MISCELLANE ONCE PRN PRN Reason: Consult order Sodium Chloride (0.9 % Sodium Chloride Flush 3 Ml Syringe) 3 ml IVFLUSH QSHIFT [facility] Last Admin: 02/18/22 00:01 Dose: 3 ml Documented by: JESSICA Trazodone HCl (Trazodone Hcl 50 Mg Tablet) 50 mg PO BEDTIME [facility] Last Admin: 02/17/22 20:18 Dose: 50 mg Documented by: ALFRED Labs CBC & Chem 7: 02/17/22 05:36 02/17/22 05:36 Assessment and Plan (1) Spinal cord lesion: Status: Acute (2) Right hemiparesis: Status: Acute Plan 51 years old male with PMH remote IVDU, schizophrenia admitted to [facility] on 02/10 with Neck pain, right hemiparesis C1-2 lesion, [place]fer[place] [facility] [place] no intervtion and advised IVIG treatment for possible autoimmune process vs transerve mylitis? Right hemiparesis due to C1-c2 lesion--No intervention according to [facility] [place] -Lumbar puncture [place] [facility] infection -IVIG possible Transverse myelitis/ autoimmune disorder vs MS.. IVIG D2 -Neurology is recommending: PTOT.? Followup MRI of the cervical spine with and without gadolinium in 2 weeks, IVIG x 5 days Schizophrenia--benztropine, oxcarbazepine, perphenazine. opiate dependence suboxone dvt prophylaxis ?lovenox Need for admission: Hemiparesisi requiring Intravenous IVIG PT and OT Quality Stroke Does the patient have a stroke diagnosis?: No VTE Prior VTE?: No VTE Risk Level:: Medical - moderate - high VTE Device Contraindication: Treatment Not Indicated VTE Drug Contraindication: N/A - Med Ordered
[2022-02-18] MEDS: DULoxetine HCl 20 MG CAPSULE.DR 40 MG PO ×2 (09:23→20:19)
[2022-02-18] MEDS: Gabapentin 600 MG TABLET PO ×3 (09:23→20:20)
[2022-02-18] MEDS: OXcarbazepine 300 MG TABLET 600 MG PO (09:23)
[2022-02-18] MEDS: Benztropine Mesylate 0.5 MG TABLET PO (09:25)
[2022-02-18 09:26] VITALS: BP 118/78; PULSE 66; O2SAT 95
[2022-02-18] MEDS: Lidocaine 4 % Patch ADH..PATCH 2 PATCH TRANSDERMA (09:26)
[2022-02-18] MEDS: Enoxaparin Sodium 40 MG/0.4 ML SYRINGE SUBCUT (09:26)
[2022-02-18] MEDS: Nicotine 14 MG PATCH.TD24 TRANSDERMA (10:40)
[2022-02-18] MEDS: oxyCODONE HCl Immed Release 5 MG TABLET PO ×4 (10:40→23:57)
[2022-02-18] MEDS: 0.9 % Sodium Chloride 1,000 ML 500 ML IVCONT (11:54)
[2022-02-18 11:59] VITALS: BP 144/72; PULSE 73; RESP 17; TEMP 36.8; O2SAT 96
[2022-02-18] MEDS: diphenhydrAMINE HCL 50 MG/ML VIAL 25 MG IVPUSH (14:40)
[2022-02-18] MEDS: Immun Glob G(IgG)/Gly/IGA Ov50 300 ML IV (14:41)
[2022-02-18] MEDS: methylPREDNISolone Sod Succ 40 MG/ML VIAL IVPUSH (14:41)
[2022-02-18 16:00] VITALS: BP 139/89; PULSE 73; RESP 18; TEMP 37.2; O2SAT 95
[2022-02-18 19:54] VITALS: BP 165/86; PULSE 83; RESP 18; TEMP 36.8; O2SAT 96
[2022-02-18] MEDS: traZODone HCL 50 MG TABLET PO (20:19)
[2022-02-18 23:44] VITALS: BP 142/80; PULSE 78; RESP 17; TEMP 36.7; O2SAT 98
[2022-02-19] MEDS: 0.9 % Sodium Chloride Flush 3 ML SYRINGE IVFLUSH ×3 (00:02→15:52)
--- NOTE | 2022-02-19 01:21 | PM.EVENT ---
Event Note Date of Service: 02/19/22 Event Note: pt had a fall while sitting on the camode. He did hit his head and is complaining of right sided headache. he is also complaing of ear pain, right shoulder and elbow pain. On exam, pt oriented to self and place with no evidence on physical exam of injury. ROM limited by his hemiparesis. ear exam revealed a buldging tympanic membrane and erythema in the ear canal will obtain head CT, shulder and elbow xray and start him on po augmentin for ear infection
[2022-02-19] MEDS: Amoxicillin/Potassium Clav 875 MG TABLET PO ×2 (02:17→14:21)
[2022-02-19 03:50] VITALS: BP 142/60; PULSE 68; RESP 17; TEMP 36.3; O2SAT 96
[2022-02-19] MEDS: oxyCODONE HCl Immed Release 5 MG TABLET PO ×5 (04:26→22:52)
[2022-02-19 07:52] VITALS: BP 140/80; PULSE 67; RESP 18; TEMP 36.7; O2SAT 95
[2022-02-19] MEDS: Benztropine Mesylate 0.5 MG TABLET PO ×2 (08:23→20:14)
[2022-02-19] MEDS: DULoxetine HCl 20 MG CAPSULE.DR 40 MG PO ×2 (08:24→20:31)
[2022-02-19] MEDS: ondansetron HCL 4 MG/2 ML VIAL IVPUSH (08:24)
[2022-02-19] MEDS: Gabapentin 600 MG TABLET PO ×3 (08:24→20:14)
[2022-02-19] MEDS: NaPROXEN 500 MG TABLET PO (08:24)
[2022-02-19] MEDS: Nicotine 14 MG PATCH.TD24 TRANSDERMA (08:25)
[2022-02-19] MEDS: Lidocaine 4 % Patch ADH..PATCH 2 PATCH TRANSDERMA (08:25)
[2022-02-19 11:29] VITALS: BP 164/82; PULSE 62; RESP 18; TEMP 36.6; O2SAT 97
[2022-02-19] MEDS: 0.9 % Sodium Chloride 1,000 ML 500 ML IVCONT (12:07)
[2022-02-19] MEDS: Acetaminophen 325 MG TABLET 650 MG PO (14:21)
[2022-02-19] MEDS: diphenhydrAMINE HCL 50 MG/ML VIAL 25 MG IVPUSH (14:22)
[2022-02-19] MEDS: methylPREDNISolone Sod Succ 40 MG/ML VIAL IVPUSH (14:23)
[2022-02-19] MEDS: Immun Glob G(IgG)/Gly/IGA Ov50 300 ML IV (14:24)
[2022-02-19 15:58] VITALS: BP 152/99; PULSE 75; RESP 18; TEMP 36.4; O2SAT 96
[2022-02-19 20:00] VITALS: BP 152/62; PULSE 63; RESP 18; TEMP 36.2; O2SAT 96
[2022-02-19] MEDS: traZODone HCL 50 MG TABLET PO (20:15)
[2022-02-19] MEDS: Perphenazine 8 MG TABLET PO (20:31)
--- NOTE | 2022-02-19 21:25 | PC.NURSE ---
patient refuses telemetry,Dr. Meier aware
[2022-02-20] VITALS (8 sets, daily range): BP systolic 123–176; BP diastolic 73–99; PULSE 56–76; RESP 18; TEMP 36.2–37.1; O2SAT 93–97
[2022-02-20] MEDS: 0.9 % Sodium Chloride Flush 3 ML SYRINGE IVFLUSH ×4 (00:43→20:02)
[2022-02-20] MEDS: Amoxicillin/Potassium Clav 875 MG TABLET PO ×2 (01:04→13:29)
[2022-02-20] MEDS: Calcium Carbonate 750 MG TAB.CHEW PO (01:43)
[2022-02-20 06:20] LABS: Hematocrit 40.3 % (42.0-52.0); Hemoglobin 13.8 g/dl (14.0-18.0); Mean Corpuscular HGB Conc 34.2 g/dl (31.0-36.0); Mean Corpuscular Hemoglobin 31.8 pg (27.0-33.0); Mean Corpuscular Volume 92.9 fL (80.0-98.0); Platelet Count 232 X10*3/uL (160-400); Red Blood Count 4.34 X10*6/uL (4.60-5.80); Red Cell Distribution Width 13.4 % (11.0-16.0); White Blood Count 12.3 X10*3/uL (4.8-10.8)
[2022-02-20 06:30] LABS: Anion Gap 11 (12-20); Blood Urea Nitrogen 12 mg/dL (9-16); Calcium 9.1 mg/dL (8.4-10.2); Carbon Dioxide 25 mmol/L (22-29); Chloride 104 mmol/L (96-108); Estimated Glomerular Filt Rate > 60; Glucose Random 81 mg/dL (60-115); Potassium 4.2 mmol/L (3.3-5.1); Sodium 136 mmol/L (135-145)
[2022-02-20] MEDS: DULoxetine HCl 20 MG CAPSULE.DR 40 MG PO ×2 (08:20→20:01)
[2022-02-20] MEDS: Lidocaine 4 % Patch ADH..PATCH 2 PATCH TRANSDERMA (08:20)
[2022-02-20] MEDS: OXcarbazepine 300 MG TABLET 600 MG PO ×2 (08:20→20:01)
[2022-02-20] MEDS: Gabapentin 600 MG TABLET PO ×3 (08:20→20:02)
[2022-02-20] MEDS: Nicotine 14 MG PATCH.TD24 TRANSDERMA (08:20)
[2022-02-20] MEDS: Benztropine Mesylate 0.5 MG TABLET PO ×2 (08:20→20:01)
[2022-02-20] MEDS: Enoxaparin Sodium 40 MG/0.4 ML SYRINGE SUBCUT (08:21)
[2022-02-20] MEDS: oxyCODONE HCl Immed Release 5 MG TABLET PO ×3 (09:26→20:01)
--- NOTE | 2022-02-20 10:17 | MHC.CM.PN ---
PATIENT DOES NOT WANT A REFERRAL TO THE ([facility]. REFERRALS PLACED TO [place] [facility]. CASE MANAGEMENT FOLLOWING.
[2022-02-20] MEDS: 0.9 % Sodium Chloride 1,000 ML 500 ML IVCONT (11:11)
[2022-02-20] MEDS: NaPROXEN 500 MG TABLET PO (11:14)
--- NOTE | 2022-02-20 11:20 | HO.PM.IMPN ---
Subjective Subjective Date of Service: 02/20/22 Interval History: f/u on right hemipareisis, C1-C2 lesion interval history: he continues to be making progress with more movment in the hand and arm Review of Systems right arm weakness no fever Physical Exam Vital Signs: Vital Signs: Last Vital Signs Temp 98.7 F 02/20/22 07:49 Pulse 58 02/20/22 10:13 Resp 18 02/20/22 07:49 BP 152/89 H 02/20/22 10:13 Pulse Ox 95 02/20/22 10:13 BMI result Body Mass Index 27.3 Const: Other: General: AO X 3, no acute distress Resp: CTA bilateral CVS: S1,S2,RRR GI: +BS, NT, no distention Skin: No rash Neuro: limitted right arm and hand movement but better than last week Psych: appropriate affect Objective Data Active Medications Acetaminophen (Acetaminophen 325 Mg Tablet) 650 mg PO Q6H PRN PRN Reason: Pain, Mild (Pain Scale 1-3) Last Admin: 02/18/22 09:24 Dose: 650 mg Documented by: JAI Acetaminophen (Acetaminophen 325 Mg Tablet) 650 mg PO DAILY@1300 [facility] Stop: 02/21/22 13:01 Last Admin: 02/19/22 14:21 Dose: 650 mg Documented by: JAI Amoxicillin/Clavulanate Potassium (Amoxicillin/Potassium Clav 875 Mg Tablet) 875 mg PO Q12H [facility] Last Admin: 02/20/22 01:04 Dose: 875 mg Documented by: JESSICA Benzocaine (Throat Lozenge, Medicated Lozenge) 1 lozenge MUCOUS MEM Q2H PRN PRN Reason: Sore Throat Benztropine Mesylate (Benztropine Mesylate 0.5 Mg Tablet) 0.5 mg PO BID@0830,2100 [facility] Last Admin: 02/20/22 08:20 Dose: 0.5 mg Documented by: OSEI Calcium Carbonate (Calcium Carbonate 750 Mg Tab.Chew) 750 mg PO Q6H PRN PRN Reason: heartburn Last Admin: 02/20/22 01:43 Dose: 750 mg Documented by: JESSICA Diphenhydramine HCl (Diphenhydramine Hcl 50 Mg/Ml Vial) 25 mg IVPUSH DAILY@1300 [facility] Stop: 02/21/22 13:01 Last Admin: 02/19/22 14:22 Dose: 25 mg Documented by: JAI Duloxetine HCl (Duloxetine Hcl 20 Mg Capsule.Dr) 40 mg PO BID [facility] Last Admin: 02/20/22 08:20 Dose: 40 mg Documented by: OSEI Enoxaparin Sodium (Enoxaparin Sodium 40 Mg/0.4 Ml Syringe) 40 mg SUBCUT Q24H [facility] Last Admin: 02/20/22 08:21 Dose: 40 mg Documented by: OSEI Gabapentin (Gabapentin 600 Mg Tablet) 600 mg PO TID [facility] Last Admin: 02/20/22 08:20 Dose: 600 mg Documented by: OSEI Immune Globulin (Gammagard 10%) 300 mls @ 37 mls/hr IV DAILY@1400 [facility] Stop: 02/21/22 22:07 Last Infusion: 02/19/22 22:49 Dose: 0 mls/hr Documented by: ISABELLE Sodium Chloride (Ns) 1,000 mls @ 500 mls/hr IVCONT DAILY@1100 [facility] Stop: 02/22/22 12:59 Last Admin: 02/20/22 11:11 Dose: 500 mls/hr Documented by: OSEI Lidocaine (Lidocaine 4 % Patch Adh..Patch) 2 patch TRANSDERMA DAILY [facility]; Protocol Last Admin: 02/20/22 08:20 Dose: 2 patch Documented by: OSEI Methylprednisolone Sodium Succinate (Methylprednisolone Sod Succ 40 Mg/Ml Vial) 40 mg IVPUSH DAILY@1300 [facility] Stop: 02/21/22 13:01 Last Admin: 02/19/22 14:23 Dose: 40 mg Documented by: JAI Naproxen (Naproxen 500 Mg Tablet) 500 mg PO Q12H PRN PRN Reason: Pain, Mild (Pain Scale 1-3) Last Admin: 02/20/22 11:14 Dose: 500 mg Documented by: OSEI Nicotine (Nicotine 14 Mg Patch.Td24) 14 mg TRANSDERMA DAILY [facility] Last Admin: 02/20/22 08:20 Dose: 14 mg Documented by: OSEI Ondansetron HCl (Ondansetron Hcl 4 Mg/2 Ml Vial) 4 mg IVPUSH Q8H PRN PRN Reason: Nausea and Vomiting Last Admin: 02/19/22 08:24 Dose: 4 mg Documented by: JAI Oxcarbazepine (Oxcarbazepine 300 Mg Tablet) 600 mg PO BID [facility] Last Admin: 02/20/22 08:20 Dose: 600 mg Documented by: OSEI Oxycodone HCl (Oxycodone Hcl Immed Release 5 Mg Tablet) 5 mg PO Q4H PRN PRN Reason: Pain, Severe (Pain Scale 7-10) Last Admin: 02/20/22 09:26 Dose: 5 mg Documented by: OSEI Perphenazine (Perphenazine 8 Mg Tablet) 8 mg PO BEDTIME [facility] Last Admin: 02/19/22 20:31 Dose: 8 mg Documented by: ISABELLE Pharmacy Consult (Consult Rx Perform Med Rec) 1 each MISCELLANE ONCE PRN PRN Reason: Consult order Sodium Chloride (0.9 % Sodium Chloride Flush 3 Ml Syringe) 3 ml IVFLUSH QSHIFT [facility] Last Admin: 02/20/22 08:20 Dose: 3 ml Documented by: OSEI Trazodone HCl (Trazodone Hcl 50 Mg Tablet) 50 mg PO BEDTIME [facility] Last Admin: 02/19/22 20:15 Dose: 50 mg Documented by: ISABELLE Labs CBC & Chem 7: 02/20/22 05:38 02/20/22 05:38 Labs: Laboratory Results - last 24 hr 02/20/22 02/20/22 05:38 05:38 MCV 92.9 MCH 31.8 MCHC 34.2 RDW 13.4 Plt Count 232 MPV 9.0 L Absolute Nucleated RBC 0.000 Nucleated RBC % (auto) 0.0 Anion Gap 11 L Estim Creat Clear Calc 117.0 Estimated GFR > 60 Random Glucose 81 Calcium 9.1 Assessment and Plan (1) Spinal cord lesion: Status: Acute (2) Right hemiparesis: Status: Acute Plan 51 years old male with PMH remote IVDU, schizophrenia admitted to [place] on 02/10 with Neck pain, right hemiparesis C1-2 lesion, trasferred to [facility] [place], Neuro Surg no intervtion and advised IVIG treatment for possible autoimmune process vs transerve mylitis? Right hemiparesis due to C1-c2 lesion--No intervention according to [facility] Neuro Surg -Lumbar puncture at [facility] no infection -IVIG possible Transverse myelitis/ autoimmune disorder vs MS.. IVIG Day 4 of 5 -Neurology is recommending: PTOT.? Followup MRI of the cervical spine with and without gadolinium in 2 weeks, IVIG x 5 days Schizophrenia--benztropine, oxcarbazepine, perphenazine. opiate dependence suboxone dvt prophylaxis ?lovenox Need for admission: Hemiparesisi requiring Intravenous IVIG PT and OT Quality Stroke Does the patient have a stroke diagnosis?: No VTE Prior VTE?: No VTE Risk Level:: Medical - moderate - high VTE Device Contraindication: Treatment Not Indicated VTE Drug Contraindication: N/A - Med Ordered
[2022-02-20] MEDS: Docusate Sodium 100 MG CAPSULE PO ×2 (12:17→20:01)
--- NOTE | 2022-02-20 13:13 | MHC.CM.PN ---
PLAN IS FOR [facility] CATH PLACEMENT SUNDAY.
[2022-02-20] MEDS: methylPREDNISolone Sod Succ 40 MG/ML VIAL IVPUSH (13:29)
[2022-02-20] MEDS: Acetaminophen 325 MG TABLET 650 MG PO (13:30)
[2022-02-20] MEDS: diphenhydrAMINE HCL 50 MG/ML VIAL 25 MG IVPUSH (13:30)
[2022-02-20] MEDS: Immun Glob G(IgG)/Gly/IGA Ov50 300 ML IV (14:53)
[2022-02-20] MEDS: traZODone HCL 50 MG TABLET PO (20:01)
[2022-02-20] MEDS: Perphenazine 8 MG TABLET PO (20:02)
[2022-02-21] MEDS: oxyCODONE HCl Immed Release 5 MG TABLET PO ×3 (00:01→16:43)
[2022-02-21] MEDS: Amoxicillin/Potassium Clav 875 MG TABLET PO ×2 (00:11→14:19)
[2022-02-21 03:20] VITALS: BP 120/84; PULSE 78; RESP 18; TEMP 36.7; O2SAT 96
[2022-02-21 07:50] VITALS: BP 141/95; PULSE 84; RESP 17; TEMP 36.5; O2SAT 96
[2022-02-21] MEDS: DULoxetine HCl 20 MG CAPSULE.DR 40 MG PO (08:17)
[2022-02-21] MEDS: Gabapentin 600 MG TABLET PO ×2 (08:17→14:19)
[2022-02-21] MEDS: Acetaminophen 325 MG TABLET 650 MG PO ×2 (08:17→14:19)
[2022-02-21] MEDS: polyethylene glycoL 3350 17 GM POWD.PACK PO (08:18)
[2022-02-21] MEDS: NaPROXEN 500 MG TABLET PO (08:18)
[2022-02-21] MEDS: Nicotine 14 MG PATCH.TD24 TRANSDERMA (08:18)
[2022-02-21] MEDS: Docusate Sodium 100 MG CAPSULE PO (08:18)
[2022-02-21] MEDS: Benztropine Mesylate 0.5 MG TABLET PO (08:18)
[2022-02-21] MEDS: Lidocaine 4 % Patch ADH..PATCH 2 PATCH TRANSDERMA (08:18)
[2022-02-21] MEDS: diphenhydrAMINE HCL 50 MG/ML VIAL 25 MG IVPUSH (08:19)
[2022-02-21] MEDS: methylPREDNISolone Sod Succ 40 MG/ML VIAL IVPUSH (08:19)
[2022-02-21] MEDS: 0.9 % Sodium Chloride Flush 3 ML SYRINGE IVFLUSH ×2 (08:19→16:44)
[2022-02-21] MEDS: Immun Glob G(IgG)/Gly/IGA Ov50 300 ML IV (08:22)
[2022-02-21] MEDS: Enoxaparin Sodium 40 MG/0.4 ML SYRINGE SUBCUT (08:38)
[2022-02-21 09:07] VITALS: BP 141/95; PULSE 84; O2SAT 96
--- NOTE | 2022-02-21 09:22 | PM.DS ---
DS: Providers Provider Date of Service: 02/21/22 Date of admission: 02/16/22 16:54 Primary care physician: Unknown Physician Consults: 02/16/22 12:28 Consult to Neurology Routine Consulting Provider: [facility] Reason for consultation: suspected transverse myelitis DS: Diagnosis Discharge Diagnosis (1) Spinal cord lesion: Status: Acute (2) Right hemiparesis: Status: Acute DS: Summary Hospital Course Hospital Course: 51-year-old male with a past medical history of opiate dependence- remote use of IV drugs, schizophrenia presented to the hospital who presented to the hospital on 02/10/22 with right neck pain/arm pain /right-sided chest pain /right arm and right leg weakness/ numbness for 4 days. He had been seen in the ED days earlier and given prednisone without improvment. He had signficant right arm and leg weakness. MRI of the brain and? C-spine were done which showed spinal cord demyelinating disease at C1-C2 levels; at that time Neurology recommendation to transfer to [facility] to evaluated by Neurosurgery team but there was no bed, also patient was recommended for IV Solumedrol a 1000 mg. Patient was admitted for right hemiparesis due to C1-C2 lesion of uncertain etiology.? He was given empiric high-dose Solu-Medrol without improvement.? He started to have worsening left-sided decreased sensation.? After further discussion with Neurology decision was made to reach out to tertiary center for acute care transfer.? Patient was accepted by [facility].? He was transfered to [facility] on 02/12/22 where he was evaluatged by the Neurosugergy with no indication for intervention, he was also seen by Neurology there and recommended to be given IVIG and was transfered back to [facility] where he was reevaluated by Neurology again and was recommended for IVIG x 5 days ending on 02/21/22. Over the course of this treatment he has gained signfincant function in the right arm and right leg and is likely to make full recovery. PT/OT has seen him and recommend short term rehab. First opiate dependence in remission to continued on Suboxone.? For his history of schizophrenia he is to continued on benztropine, oxcarbazepine, perphenazine. Time Spent with Patient Time attestation: Total time spent providing and/or coordinating discharge services: Discharge coordination time: Greater than 30 minutes Quality: Safe Use of Opioids Does Pt have an Active Cancer Diagnosis on the Problem List?: No Quality: Stroke Does the patient have a stroke diagnosis?: No Physical Exam Vital Signs: Vital Signs: Last Vital Signs Temp 97.7 F 02/21/22 07:50 Pulse 84 02/21/22 09:07 Resp 17 02/21/22 07:50 BP 141/95 H 02/21/22 09:07 Pulse Ox 96 02/21/22 09:07 BMI result Body Mass Index 27.3 Discharge Plan Discharge Anticipated Discharge Date/Time: 02/21/22 09:20 Patient Disposition: Xfer SNF Discharge Diagnosis: C1-C2 spinal cord lesion, right hemiparesis Referrals: [facility] [Outside] - 1 Week Physician,Unknown J [Primary Care Provider] - 1 Week Discharge Medications: New oxycodone 5 mg Tablet 5 mg PO Q4H PRN (Reason: Pain, Severe (Pain Scale 7-10)) Qty: 20 0RF duloxetine 20 mg Capsule,Delayed Release(Dr/Ec) 40 mg PO BID Qty: 60 0RF lidocaine [Lidocaine Pain Relief] 4 % Adhesive Patch,Medicated 2 patch transdermal DAILY Qty: 10 0RF Protocol: Apply to: Apply to: per pt nicotine 14 mg/24 hr Patch 24 Hour 14 mg transdermal DAILY Qty: 30 0RF polyethylene glycol 3350 17 gram Powder In Packet 17 g PO DAILY PRN (Reason: Constipation) Qty: 30 0RF docusate sodium 100 mg Capsule 100 mg PO BID Qty: 60 0RF oxcarbazepine 300 mg Tablet 600 mg PO BID Qty: 60 0RF trazodone 50 mg Tablet 50 mg PO BEDTIME Qty: 20 0RF calcium carbonate [Antacid Ext Str (calcium carb)] 300 mg (750 mg) Tablet,Chewable 750 mg PO Q6H PRN (Reason: heartburn) Qty: 30 0RF Continued benztropine 0.5 mg Tablet 0.5 mg PO BID@0830,2100 30 Days Qty: 60 0RF oxcarbazepine 600 mg tablet 600 mg PO BID 0RF perphenazine 8 mg tablet 8 mg PO BEDTIME 0RF Discontinued naproxen 500 mg tablet 500 mg PO BID PRN (Reason: pain) Qty: 20 0RF Discharge Orders: Discharge Order (Routine); Ordered 02/21/22 Ordered By: Ishaan Martínez Diet: advance to usual diet Activity on Discharge: As tolerated Stand Alone Forms: Patient Portal Discharge page Care Plan Goals: Full recovery from right hemiparesis Health Concerns: C1 -C2 spinal cord lesion Plan of Treatment: Has completed IVIG treatment, IV steroid and should complete short term rehab and then follow up with Neurology on outpatient basis Assessment: As above
--- NOTE | 2022-02-21 09:26 | MHC.CM.PN ---
PATIENT WILL TRANSFER TO [facility] IN [place] TODAY FOLLOWING HIS LAST DOSE OF IV IG. ACTION TRANSPORT REQUEST WILL BE MADE RN, PATIENT, AND UNIT AWARE OF PLAN. IMM 02/20 IN CHART
[2022-02-21 11:36] VITALS: BP 171/99; PULSE 86; RESP 16; TEMP 36.6; O2SAT 95
[2022-02-21 13:19] LABS: COVID-19 Test Negative (Negative); IDNOW Serial# 16C4AD1C
[2022-02-21 16:00] VITALS: PULSE 87; RESP 16; TEMP 36.3; O2SAT 96
== END 2022-02-21 18:52 | disposition skilled nursing facility (03) | DRG 98 ==
PROVIDERS: Admitting Provider Student in an Organized Health Care Education/Training Program; PCP Family Medicine Adult Medicine; Visit Provider Internal Medicine
DX: G37.3 Acute transverse myelitis in demyelinating disease of central nervous system (principal); F11.20 Opioid dependence, uncomplicated; G81.91 Hemiplegia, unspecified affecting right dominant side; D89.9 Disorder involving the immune mechanism, unspecified; F20.9 Schizophrenia, unspecified; F17.210 Nicotine dependence, cigarettes, uncomplicated; Z71.6 Tobacco abuse counseling; Z20.822 Contact with and (suspected) exposure to COVID-19; Z88.8 Allergy status to other drugs, medicaments and biological substances; Z79.899 Other long term (current) drug therapy
CPT/HCPCS: 36415; 70450; 73030; 73070; 80048; 85027; 87635; 93005; 97110; 97116; 97163; 97167; 97530; 97535; J1200; J1569; J1572; J1650; J2270; J2405; J2920

== ENCOUNTER 2022-03-16 08:43 | Emergency (ER) | payer MEDICARE, MEDICAID, SELFPAY ==
[2022-03-16 09:03] VITALS: BP 116/70; BP 120/78; PULSE 77; PULSE 88; RESP 17; TEMP 37; O2SAT 95; O2SAT 98; BMI 28.5
--- NOTE | 2022-03-16 09:13 | ED.NEUROSD ---
HPI - Neuro Symptoms/Deficit General Chief Complaint: Weakness Stated Complaint: right arm numbness Time Seen by Provider: 03/16/22 08:52 Source: patient and old records reviewed Mode of arrival: EMS Limitations: no limitations History of Present Illness HPI Narrative: 51 yo male with hx of opiate dependence, schizophrenia, presented here in January with R neck pain and arm pain started on steroids no improvement developed R arm and leg weakness [place] [facility] [place] demyelinating disease at C1-C2 with 1000mg solumedrol without improvement. Sent to [facility] [place] for R sided hemiparesis at C1 level and given IVIG - ended back [place] [facility] [place]IG on 02/21 with 5 days of IVIG. He has been doing better and regained function with PT and OT but still has residual deficits on R side mostly his R arm. He notes he went to bed at 10pm last night and upon waking at 630pm he feels his R arm is cold and more numb. He denies any trauma but did note he tried to lift a cinder block this week to see if he could. Onset (ago): hour(s) (woke with symptoms at 630am) Timing confirmed by: other (self) Location: right arm History of same: Yes Severity: mild Quality: numb and constant Relieving factors: none Exacerbating factors: none Context: gradual onset On Anticoagulants: No Associated symptoms: denies other symptoms Treatments Prior to Arrival: none Related Data Home Medications Medication Instructions Recorded Confirmed oxcarbazepine 600 mg tablet 600 mg PO BID 07/05/21 02/16/22 perphenazine 8 mg tablet 8 mg PO BEDTIME 07/05/21 02/16/22 Previous Rx's Medication Instructions Recorded benztropine 0.5 mg tablet 0.5 mg PO BID@0830,2100 30 days 07/15/20 #60 tabs calcium carbonate 300 mg (750 mg) 750 mg PO Q6H PRN heartburn #30 02/21/22 chewable tablet (Antacid Extra tabs Strength (calcium carb)) docusate sodium 100 mg capsule 100 mg PO BID #60 caps 02/21/22 duloxetine 20 mg capsule,delayed 40 mg PO BID #60 caps 02/21/22 release lidocaine 4 % topical patch 2 patch transdermal DAILY #10 ea 02/21/22 (Lidocaine Pain Relief) nicotine 14 mg/24 hr daily 14 mg transdermal DAILY #30 ea 02/21/22 transdermal patch oxcarbazepine 300 mg tablet 600 mg PO BID #60 tabs 02/21/22 oxycodone 5 mg tablet 5 mg PO Q4H PRN Pain, Severe (Pain 02/21/22 Scale 7-10) #20 tabs polyethylene glycol 3350 17 gram 17 g PO DAILY PRN Constipation #30 02/21/22 oral powder packet ea trazodone 50 mg tablet 50 mg PO BEDTIME #20 tabs 02/21/22 Allergies Allergy/AdvReac Type Severity Reaction Status Date / Time haloperidol [From HALDOL] Allergy Intermediate UNKNOWN Verified 08/05/21 13:57 Review of Systems Review of Systems: Constitutional : No Weight loss, No Fever, No Chills, No Fatigue, No Malaise ENT/Mouth : No sore throat, No Rhinorrhea Eyes: No Eye Pain, No Swelling, No Redness Cardiovascular : No Chest Pain, No SOB, No Dyspnea on Exertion, No Orthopnea, No Edema, No Palpitations Respiratory : No Cough, No Sputum, No Wheezing Gastrointestinal : No Nausea, No Vomiting, No Diarrhea, No Constipation, No abdominal Pain, No Hematochezia, No Melena Genitourinary : No Dysuria, No Urinary Frequency, No Hematuria, Musculoskeletal : No joint pain, No Myalgias, No Joint Swelling Skin : No Skin Lesions, No rash Neuro : pos Weakness, pos Numbness, No Dizziness, No Headache Psych : No Anxiety/Panic, No Depression Heme/Lymph: No Bruising, No Bleeding,No Lymphadenopathy Endocrine : No Polyuria, No Polydipsia All other systems reviewed and are negative PMFSH Past Medical History Attestation statement: The following information was validated with the patient. Medical History Psychosis Right hemiparesis Schizophrenia Spinal cord lesion Substance abuse Surgical History History of liver biopsy Family History Family History Father Medical history unknown Mother Medical history unknown Social History Social History Household Members: None Housing: Apartment Do you presently have visiting nurse or other home services: No Patient Tobacco Use Status: Current everyday Tobacco user Tobacco use type: Cigarette Cigarette Packs Per Day: 1 Cigarettes Per Day: 20.0 Smoked in Last 30 Days: Yes e-Cigarette/Vaping Use: Never Used Second Hand Smoke Exposure: No Use of substances other than those prescribed or required for medical reasons: No Substance Use Type: Crack/Cocaine and Marijuana Advance Directives: Yes Advance Directives Information Provided: No Advance Directives on File: No service: No Current occupational status: disabled Cognitive needs: No Hearing needs: No Vision needs: No Physical Exam Vital Signs: Vital Signs: Last Vital Signs Temp 98.6 F 03/16/22 09:03 Pulse 77 03/16/22 09:03 Resp 17 03/16/22 09:03 BP 116/70 03/16/22 09:03 Pulse Ox 95 03/16/22 09:03 O2 Del Method 03/16/22 09:03 BMI result Body Mass Index 28.5 ,Appearance: Alert. Oriented X3. No acute distress. Calm and cooperative Eyes: Pupils equal, round and reactive to light. ENT: Pharynx normal. Neck: Normal inspection. Neck supple. CVS: Normal heart rate and rhythm. Pulses normal. Respiratory: No respiratory distress. Breath sounds normal. Abdomen: Soft and nontender. Skin: Skin warm and dry. Normal skin color. Normal skin turgor. Extremities: No lower extremity edema. No calf ttp Neuro: Oriented X 3. R arm 4+/5 good strength reports SILT throughout, 2+ radial pulse, no other deficits noted on exam Course Course Course Narrative: patient eloped from the ED at this time, I have attempted to contact his mother, case management states that he can make his own decisions from what they can tell and that he has capacity from their records patient was spoken to prior to leaving we found him I offered medications, he states that he is aware we are going to try to get him an MRI to see if his disease has worsened, he knows the year hospital and what we are looking for that we would be offering treatment again for his disease. He states he is aware and declines treatment at this time. He is calm he is not combative. He is answering questions appropriately. He does not appear paranoid or responding to internal stimuli. At this time he is leaving against medical advice MDM - Neuro Symptoms/Deficit MDM Narrative Medical decision making narrative: 51 yo male with hx of schizophrenia, C1 demyelinating disease, here with c/o R arm worsening numbness just completed IVIG for C1 disease woke up with symptoms seems atypical for stroke - will obtain MRI to see if disease is worsening. Patient aware of plan denies he needs anxiolytic for imaging. Labs, EKG, MRI with/without for brain and cervical spine ordered. Discharge Plan Discharge Clinical Impression: Arm paresthesia, right Patient Disposition: Left Against Medical Advice Instructions: Against Medical Advice (ED), Paresthesia (ED) Prescriptions: No Action benztropine 0.5 mg Tablet 0.5 mg PO BID@0830,2100 30 Days Qty: 60 0RF nicotine 14 mg/24 hr Patch 24 Hour 14 mg transdermal DAILY Qty: 30 0RF lidocaine [Lidocaine Pain Relief] 4 % Adhesive Patch,Medicated 2 patch transdermal DAILY Qty: 10 0RF Protocol: Apply to: Apply to: per pt trazodone 50 mg Tablet 50 mg PO BEDTIME Qty: 20 0RF polyethylene glycol 3350 17 gram Powder In Packet 17 g PO DAILY PRN (Reason: Constipation) Qty: 30 0RF calcium carbonate [Antacid Ext Str (calcium carb)] 300 mg (750 mg) Tablet,Chewable 750 mg PO Q6H PRN (Reason: heartburn) Qty: 30 0RF oxcarbazepine 300 mg Tablet 600 mg PO BID Qty: 60 0RF docusate sodium 100 mg Capsule 100 mg PO BID Qty: 60 0RF duloxetine 20 mg Capsule,Delayed Release(Dr/Ec) 40 mg PO BID Qty: 60 0RF oxycodone 5 mg Tablet 5 mg PO Q4H PRN (Reason: Pain, Severe (Pain Scale 7-10)) Qty: 20 0RF oxcarbazepine 600 mg tablet 600 mg PO BID perphenazine 8 mg tablet 8 mg PO BEDTIME
== END 2022-03-16 09:40 | disposition left against medical advice (07) ==
PROVIDERS: Emergency Provider Emergency Medicine; PCP Family Medicine Adult Medicine
DX: R20.2 Paresthesia of skin (principal); R53.1 Weakness; F17.200 Nicotine dependence, unspecified, uncomplicated; F11.20 Opioid dependence, uncomplicated
CPT/HCPCS: 36415; 71046; 80048; 99283

== ENCOUNTER 2022-03-16 13:46 | Outpatient (REF) | payer MEDICARE, MEDICAID, SELFPAY ==
--- NOTE | ~2022-03-16 | XR_ITS ---
EXAMINATION: XR CHEST CLINICAL INFORMATION: Chest pain, unspecified. COMPARISON: Chest radiographs 02/10/2022, 02/06/2022. TECHNIQUE: 2 views of the chest were obtained. FINDINGS: No airspace consolidation, pneumothorax, pleural reaction, or effusion. Fine linear scar left lateral base stable. The costophrenic sulci are clear. Heart size normal. The hilar and mediastinal contours and visualized bony structures are unremarkable. XR/XR chest 2V IMPRESSION: Unremarkable examination.
[2022-03-16 17:57] LABS: Anion Gap 14 (12-20); Blood Urea Nitrogen 6 mg/dL (9-16); Calcium 8.4 mg/dL (8.4-10.2); Carbon Dioxide 22 mmol/L (22-29); Chloride 91 mmol/L (96-108); Estimated Glomerular Filt Rate > 60; Glucose Random 86 mg/dL (60-115); Potassium 4.3 mmol/L (3.3-5.1); Sodium 123 mmol/L (135-145)
== END 2022-03-16 13:47 | disposition home or self-care (01) ==
LOC: HO.LAB 13:46
PROVIDERS: PCP Family Medicine Adult Medicine; Visit Provider Student in an Organized Health Care Education/Training Program
DX: Z13.89 Encounter for screening for other disorder (principal)
CPT/HCPCS: 36415; 71046; 80048

== ENCOUNTER 2022-03-20 17:32 | Inpatient (IN) | payer MEDICARE, MEDICAID, SELFPAY ==
--- NOTE | ~2022-03-20 | US_ITS ---
EXAMINATION: US VENOUS ULTRASOUND WITH DOPPLER LOWER EXTREMITY, LEFT CLINICAL INFORMATION: Left lower extremity edema. COMPARISON: None TECHNIQUE: Ultrasound of the deep veins is performed from the hip to the calf with compression sonography and color and pulse Doppler assessment. Spectral analysis with color-flow imaging is performed. FINDINGS: There is normal venous compression and respiratory variation and augmented flow. The visualized common femoral vein, superficial femoral vein, profunda femoral vein, popliteal vein, and the trifurcation region shows no evidence of deep venous thrombosis. There is no significant popliteal fossa cyst. If the patient's symptoms persist, followup ultrasound in 5 days 7 days might be of value to exclude proximal propagation from a non-visualized calf vein. US/US venous duplex LE LT IMPRESSION: No DVT demonstrated in the left lower extremity.
--- NOTE | ~2022-03-20 | CT_ITS ---
EXAMINATION: CT HEAD WITHOUT CONTRAST CLINICAL INFORMATION: Fall with head impact. COMPARISON: CT scan of the head 03/20/2022. TECHNIQUE: Contiguous axial imaging was performed from the skull base to vertex without intravenous administration of contrast. This CT examination was performed using dose optimization techniques as appropriate, variously including the following: *Automated exposure control *Adjustment of mA and/or kV according to patient size (this includes techniques or standardized protocols for targeted exams where dose is matched to indication/reason for exam; i.e. extremities or head) *Use of iterative reconstruction technique DLP: 800 mGy-cm FINDINGS: There is no acute intracranial hemorrhage or abnormal extra-axial collection. No intracranial mass effect or midline shift. Lateral and third ventricles are normal. No hydrocephalus. Symmetric small foci of hypoattenuation visualized within the globus pallidus best visualized on axial image 26 of 55 series 2. [place]-white matter differentiation is preserved and there is no evidence of acute territorial infarct. The calvarium and skull base are intact. Mastoid air cells and middle ear cavities are well aerated. No active paranasal sinus disease. CT/CT head/brain wo con IMPRESSION: There are chronic lesions involving the globus pallidus presumably secondary to a prior hypoxia or toxic exposure. Otherwise unremarkable examination. No acute intracranial hemorrhage.
--- NOTE | ~2022-03-20 | CT_ITS ---
EXAMINATION: CT HEAD WITHOUT CONTRAST CLINICAL INFORMATION: Head injury COMPARISON: 02/19/2022 TECHNIQUE: Contiguous axial imaging was performed from the skull base to vertex without intravenous contrast. This CT examination was performed using dose optimization techniques as appropriate, variously including the following: * Automated exposure control * Adjustment of mA and/or kV according to patient size (this includes techniques or standardized protocols for targeted exams where dose is matched to indication/reason for exam; i.e. extremities or head) Use of iterative reconstruction technique DLP: 784 mGy-cm. FINDINGS: There is no evidence of acute intracranial hemorrhage or territorial infarction. No abnormal mass effect or midline shift is seen. [place] to white matter differentiation is well preserved. No extra-axial fluid collections are identified. No hydrocephalus. No significant volume loss. Small bilateral basal ganglia chronic infarcts are unchanged. The osseous structures and soft tissues are normal. The mastoid air cells and visualized portions of the paranasal sinuses are well aerated. CT/CT head/brain wo con IMPRESSION: No acute intracranial pathology.
--- NOTE | 2022-03-20 17:39 | ED.PSYCH ---
HPI - Psych General Chief Complaint: Psychiatric Symptoms Stated Complaint: crisis Time Seen by Provider: 03/20/22 21:10 Source: patient and EMS Mode of arrival: EMS Limitations: altered mental status History of Present Illness HPI Narrative: 51-year-old male presents via EMS from a substance abuse facility for altered mental status, agitated behavior, and inappropriate conduct. There is a report of a head injury while playing basketball last night as well as a sunburn. Patient states not feel well, does not feel himself, and is very agitated. MD complaint: altered mental status and anxiety Onset (ago): unknown History of same: Yes Relieving factors: none Context: not taking psychiatric medications Associated psychiatric symptoms: delusions Associated symptoms: confusion Treatments prior to arrival: placed on mental health hold Related Data Home Medications Medication Instructions Recorded Confirmed acetaminophen 325 mg tablet 2 tab PO Q6H PRN Pain 03/20/22 03/20/22 benztropine 1 mg tablet 1 tab PO TID 03/20/22 03/20/22 docusate sodium 100 mg capsule 1 cap PO BID 03/20/22 03/20/22 duloxetine 60 mg capsule,delayed 2 cap PO DAILY 03/20/22 03/20/22 release gabapentin 300 mg capsule 2 cap PO TID 03/20/22 03/20/22 ibuprofen 800 mg tablet 1 tab PO TID 03/20/22 03/20/22 oxcarbazepine 600 mg tablet 1 tab PO BID 03/20/22 03/20/22 oxycodone 5 mg tablet 1 tab PO Q12H PRN pain 03/20/22 03/20/22 perphenazine 2 mg tablet 3 tab PO BID 03/20/22 03/20/22 perphenazine 8 mg tablet 1 tab PO BID 03/20/22 03/20/22 sennosides 8.6 mg tablet (senna) 2 tab PO DAILY 03/20/22 03/20/22 tamsulosin 0.4 mg capsule 1 cap PO BEDTIME 03/20/22 03/20/22 trazodone 50 mg tablet 1 tab PO BEDTIME 03/20/22 03/20/22 Allergies Allergy/AdvReac Type Severity Reaction Status Date / Time haloperidol [From HALDOL] Allergy Intermediate UNKNOWN Verified 03/16/22 14:25 Review of Systems Review of Systems: Yes Unobtainable due to mental status PMFSH Past Medical History Attestation statement: The following information was validated with the patient. Source: old records reviewed Medical History Psychosis Right hemiparesis Schizophrenia Spinal cord lesion Substance abuse Surgical History History of liver biopsy Family History Family History Father Medical history unknown Mother Medical history unknown Social History Social History Household Members: None Housing: Apartment Do you presently have visiting nurse or other home services: No Alcohol intake: former Patient Tobacco Use Status: Current everyday Tobacco user Tobacco use type: Cigarette Cigarette Packs Per Day: 1 Cigarettes Per Day: 20.0 Smoked in Last 30 Days: Yes e-Cigarette/Vaping Use: Never Used Second Hand Smoke Exposure: Yes Use of substances other than those prescribed or required for medical reasons: No Substance Use Type: Crack/Cocaine and Marijuana Advance Directives: No Advance Directives Information Provided: No service: No Current occupational status: disabled Cognitive needs: No Hearing needs: No Vision needs: No Physical Exam Vital Signs: Vital Signs: Last Vital Signs Temp 98.2 F 03/20/22 18:03 Pulse 95 03/20/22 19:35 Resp 20 03/20/22 19:35 BP 107/74 03/20/22 19:35 Pulse Ox 96 03/20/22 19:35 O2 Del Method 03/20/22 19:35 BMI result Body Mass Index 28.6 Appearance: Alert. Oriented. Severe emotional distress. Eyes: Pupils equal, round and reactive to light. Sclera nonicteric. ENT: Pharynx normal. Neck: Normal inspection. Neck supple. CVS: Normal heart rate and rhythm. Pulses normal. Respiratory: No respiratory distress. Breath sounds normal. Abdomen: Soft and nontender. Skin: Skin warm and dry. Normal skin color. Normal skin turgor. Extremities: No lower extremity edema. Gait balanced and coordinated. Neuro: No motor deficit. No sensory deficit. Cranial nerves 2-12 intact. Course Course Course Narrative: 51-year-old male presents via EMS from a substance abuse facility for altered mental status, inappropriate behavior-he was exposing his genitals to female staff members-also reports head injury while playing basketball and sunburn. He does have blisters to the top of his head from a sunburn, burn wounds to the tips of his fingers from cigarettes. Has multiple bruises to his forearms in various stages of healing. Patient's mucous membranes are dry, patient's speech is pressured. A review of records indicates patient has had multiple admissions to Psychiatry, has a history of cervical myelopathy, is schizophrenic. Patient is agitated, screaming, and difficult to redirect. Patient is paranoid, delusional, and speaking of his father. Will order CT scan when patient is more agreeable. 18:15 patient given IM Ativan 2 mg. Patient given multiple to injury else. He did agree to lab values and IV start for IV hydration as he does appear dry 18:45 patient continues to be agitated. Screaming. Swearing. Multiple discussions with on-call licensed psychologist director, patient refused his p.o. medications of perphenazine and oxcarbazepine. Plan is for Thorazine 25 mg IM. Fluid infusion discontinued, IV remains in place. 19:00 patient is redirectable, but intermittently screaming. Does not want to stay in his room. 19:10 patient transferred to psychiatric unit of the emergency department. 19:32 patient, cooperative at this time. 23:33 patient continues to rest, CT scan is pending. 23:50 patient is agreeable to Tdap vaccine at this time. 00:01 CT scan negative for acute findings. Patient medically cleared. Physician observation started at this time. Section 12 signed by this SCRAP CRUSHER. MDM - Psych Differential Diagnosis Differential diagnosis: Likely acute psychosis and drug-induced psychotic disorder Medical Records Attestation: I reviewed the patient's medical records. Lab Data Attestation: I reviewed the patient's lab results. Result diagrams: 03/20/22 17:58 03/20/22 17:58 Labs: Lab Results 03/20/22 03/20/22 03/20/22 Range/Units 17:58 17:58 17:58 WBC 10.5 (4.8-10.8) X10*3/uL RBC 3.91 L (4.60-5.80) X10*6/uL Hgb 12.9 L (14.0-18.0) g/dl Hct 37.0 L (42.0-52.0) % MCV 94.6 (80.0-98.0) fL MCH 33.0 (27.0-33.0) pg MCHC 34.9 (31.0-36.0) g/dl RDW 16.2 H (11.0-16.0) % Plt Count 269 (160-400) X10*3/uL MPV 8.1 L (9.4-12.4) fL Immature Gran % (Auto) 0.3 (0.0-0.4) % Neut % (Auto) 70.9 (45-73) % Lymph % (Auto) 19.0 L (20-40) % [place] % (Auto) 9.3 (2-11) % Eos % (Auto) 0.3 (0-4) % Baso % (Auto) 0.2 (0-2) % Lymph # (Auto) 2.0 (1.2-4.9) X10*3/uL [place] # (Auto) 1.0 (0.1-1.2) X10*3/uL Eos # (Auto) 0.0 (0.0-0.4) X10*3/uL Baso # (Auto) 0.0 (0.0-0.2) X10*3/uL Abs Immat Gran (auto) 0.03 (0.00-0.03) X10*3/uL Absolute Neuts (auto) 7.5 (2.0-8.3) x10*3/uL Absolute Nucleated RBC 0.000 (0.0-0.012) X10*3/uL Nucleated RBC % (auto) 0.0 (0.0-0.2) /100WBC Sodium 132 L (135-145) mmol/L Potassium 4.2 (3.3-5.1) mmol/L Chloride 101 (96-108) mmol/L Carbon Dioxide 21 L (22-29) mmol/L Anion Gap 14 (12-20) BUN 4 L (9-16) mg/dL Creatinine 0.73 (0.5-1.4) mg/dL Estim Creat Clear Calc 113.9 Estimated GFR > 60 Random Glucose 96 (60-115) mg/dL Calcium 8.8 (8.4-10.2) mg/dL Total Bilirubin 0.5 (0.0-1.0) mg/dL AST 43 H D (5-37) U/L ALT 25 (0-40) U/L Alkaline Phosphatase 54 (39-117) U/L Troponin I High Sens 5.2 (<3.5-35.0) ng/L Total Protein 7.8 (6.5-8.0) g/dL Albumin 4.1 (3.5-5.0) g/dL Lipase 17 (8-78) U/L Urine Color Urine Appearance Urine pH (5.0-8.0) Ur Specific [place] (1.005-1.025) Urine Protein (NEG-TRACE) MG/DL Urine Glucose (UA) (NEG) MG/DL Urine Ketones (NEG) MG/DL Urine Blood (NEG) Urine Nitrite (NEG) Ur Leukocyte Esterase (NEG) Salicylates < 5.0 L (15-30) mg/dL Urine Opiates Screen (Not Detect) Urine Fentanyl Screen (Not Detect) Acetaminophen < 1 (<30) mcg/mL Ur Barbiturates Screen (Not Detect) Ur Phencyclidine Scrn (Not Detect) Ur Amphetamines Screen (Not Detect) U Benzodiazepines Scrn (Not Detect) Urine Cocaine Screen (Not Detect) U Marijuana (THC) Screen (Not Detect) Ethyl Alcohol < 10 mg/dL 03/20/22 03/20/22 Range/Units 18:57 18:57 WBC (4.8-10.8) X10*3/uL RBC (4.60-5.80) X10*6/uL Hgb (14.0-18.0) g/dl Hct (42.0-52.0) % MCV (80.0-98.0) fL MCH (27.0-33.0) pg MCHC (31.0-36.0) g/dl RDW (11.0-16.0) % Plt Count (160-400) X10*3/uL MPV (9.4-12.4) fL Immature Gran % (Auto) (0.0-0.4) % Neut % (Auto) (45-73) % Lymph % (Auto) (20-40) % [place] % (Auto) (2-11) % Eos % (Auto) (0-4) % Baso % (Auto) (0-2) % Lymph # (Auto) (1.2-4.9) X10*3/uL [place] # (Auto) (0.1-1.2) X10*3/uL Eos # (Auto) (0.0-0.4) X10*3/uL Baso # (Auto) (0.0-0.2) X10*3/uL Abs Immat Gran (auto) (0.00-0.03) X10*3/uL Absolute Neuts (auto) (2.0-8.3) x10*3/uL Absolute Nucleated RBC (0.0-0.012) X10*3/uL Nucleated RBC % (auto) (0.0-0.2) /100WBC Sodium (135-145) mmol/L Potassium (3.3-5.1) mmol/L Chloride (96-108) mmol/L Carbon Dioxide (22-29) mmol/L Anion Gap (12-20) BUN (9-16) mg/dL Creatinine (0.5-1.4) mg/dL Estim Creat Clear Calc Estimated GFR Random Glucose (60-115) mg/dL Calcium (8.4-10.2) mg/dL Total Bilirubin (0.0-1.0) mg/dL AST (5-37) U/L ALT (0-40) U/L Alkaline Phosphatase (39-117) U/L Troponin I High Sens (<3.5-35.0) ng/L Total Protein (6.5-8.0) g/dL Albumin (3.5-5.0) g/dL Lipase (8-78) U/L Urine Color YELLOW Urine Appearance CLEAR Urine pH 7.0 (5.0-8.0) Ur Specific [place] 1.010 (1.005-1.025) Urine Protein NEG (NEG-TRACE) MG/DL Urine Glucose (UA) NEG (NEG) MG/DL Urine Ketones NEG (NEG) MG/DL Urine Blood NEG (NEG) Urine Nitrite NEG (NEG) Ur Leukocyte Esterase NEG (NEG) Salicylates (15-30) mg/dL Urine Opiates Screen Not Detected (Not Detect) Urine Fentanyl Screen Not Detected (Not Detect) Acetaminophen (<30) mcg/mL Ur Barbiturates Screen Not Detected (Not Detect) Ur Phencyclidine Scrn Not Detected (Not Detect) Ur Amphetamines Screen Not Detected (Not Detect) U Benzodiazepines Scrn Not Detected (Not Detect) Urine Cocaine Screen Not Detected (Not Detect) U Marijuana (THC) Screen POSITIVE H (Not Detect) Ethyl Alcohol mg/dL Imaging Data CT scan - head: Attestation: I personally reviewed and interpreted this imaging study as follows: Radiologist's impression: FINDINGS: There is no evidence of acute intracranial hemorrhage or territorial infarction. No abnormal mass effect or midline shift is seen. [place] to white matter differentiation is well preserved. No extra-axial fluid collections are identified. No hydrocephalus. No significant volume loss. Small bilateral basal ganglia chronic infarcts are unchanged. The osseous structures and soft tissues are normal. The mastoid air cells and visualized portions of the paranasal sinuses are well aerated. ? CT/CT head/brain wo con IMPRESSION: No acute intracranial pathology. Critical Care Time Critical Care Time Critical Care Time: Yes Total Critical Care Time: 65 Attestation: I have personally provided critical care time exclusive of time spent on separately billable procedures. Time includes review of laboratory data, radiology results, discussion with consultants, and monitoring for potential decompensation. Interventions were performed as documented. Discharge Plan Discharge Clinical Impression: Acute psychosis Patient Disposition: Still a Patient Prescriptions: No Action sennosides [senna] 8.6 mg tablet 2 tab PO DAILY acetaminophen 325 mg tablet 2 tab PO Q6H PRN (Reason: Pain) perphenazine 2 mg tablet 3 tab PO BID trazodone 50 mg tablet 1 tab PO BEDTIME ibuprofen 800 mg tablet 1 tab PO TID tamsulosin 0.4 mg capsule 1 cap PO BEDTIME benztropine 1 mg tablet 1 tab PO TID gabapentin 300 mg capsule 2 cap PO TID oxcarbazepine 600 mg tablet 1 tab PO BID oxycodone 5 mg tablet 1 tab PO Q12H PRN (Reason: pain) duloxetine 60 mg capsule,delayed release(DR/EC) 2 cap PO DAILY docusate sodium [DOK] 100 mg capsule 1 cap PO BID perphenazine 8 mg tablet 1 tab PO BID
[2022-03-20 18:03] VITALS: BP 128/80; BP 130/90; PULSE 118; PULSE 98; RESP 16; TEMP 36.8; O2SAT 95; O2SAT 98; BMI 28.6
[2022-03-20] MEDS: 0.9 % Sodium Chloride 1,000 ML 999 ML IVCONT (18:03)
[2022-03-20 18:05] LABS: MANUAL DIFF FLAG NO
[2022-03-20] MEDS: LORazepam 2 MG/ML VIAL IM (18:15)
[2022-03-20 18:16] LABS: Basophils Percent Auto 0.2 % (0-2); Eosinophils Percent Auto 0.3 % (0-4); Hemoglobin 12.9 g/dl (14.0-18.0); Imm Gran Abs Auto 0.03 X10*3/uL (0.00-0.03); Imm Gran Pct Auto 0.3 % (0.0-0.4); Mean Corpuscular HGB Conc 34.9 g/dl (31.0-36.0); Mean Corpuscular Volume 94.6 fL (80.0-98.0); Mean Platelet Volume 8.1 fL (9.4-12.4); Monocytes Percent Auto 9.3 % (2-11); Neutrophils Absolute Auto 7.5 x10*3/uL (2.0-8.3); Neutrophils Percent Auto 70.9 % (45-73); Platelet Count 269 X10*3/uL (160-400); Red Blood Count 3.91 X10*6/uL (4.60-5.80); Red Cell Distribution Width 16.2 % (11.0-16.0); White Blood Count 10.5 X10*3/uL (4.8-10.8)
[2022-03-20 18:25] LABS: Acetaminophen LAB < 1 mcg/mL (<30); Alanine Aminotransferase 25 U/L (0-40); Albumin Level 4.1 g/dL (3.5-5.0); Alkaline Phosphatase 54 U/L (39-117); Anion Gap 14 (12-20); Aspartate Amino Transferase 43 U/L (5-37); Bilirubin Total 0.5 mg/dL (0.0-1.0); Blood Urea Nitrogen 4 mg/dL (9-16); Calcium 8.8 mg/dL (8.4-10.2); Carbon Dioxide 21 mmol/L (22-29); Chloride 101 mmol/L (96-108); Creatinine Clr Calc Pharmacy 113.9; Estimated Glomerular Filt Rate > 60; Ethanol < 10 mg/dL; Glucose Random 96 mg/dL (60-115); Lipase 17 U/L (8-78); Potassium 4.2 mmol/L (3.3-5.1); Salicylate < 5.0 mg/dL (15-30); Sodium 132 mmol/L (135-145); Total Protein 7.8 g/dL (6.5-8.0)
[2022-03-20 18:30] LABS: Troponin-I High Sensitivity 5.2 ng/L (<3.5-35.0)
[2022-03-20 19:00] VITALS: BP 126/77; PULSE 90; RESP 20; O2SAT 99
--- NOTE | 2022-03-20 19:10 | PC.NURSE ---
Patient received Thorazine IM per pt request and received Ativan 2 mg IM. Patient admitted to the pod
--- NOTE | 2022-03-20 19:12 | PC.NURSE ---
Addendum entered by Heidi Arguello RN 03/20/22 19:31: This note written by Heidi Arguello RN Original Note: Pt was guarded on arrivl but cooperative with care until about 1814 when pt became very angry and threatening. He was given 2mg IM A at that time. Pt able to be calmed afterward by staff but having numerous subsequent outbursts. Per pt's request IM Thorazine was given to help him participate in his own care effectively.
[2022-03-20 19:16] LABS: Appearance Urine CLEAR; Color Urine YELLOW; Glucose Urine UA NEG (NEG); Leukocyte Esterase Urine NEG (NEG); Nitrite Urine NEG (NEG); Urine Blood NEG (NEG); Urine Ketones NEG (NEG); Urine Protein NEG (NEG-TRACE)
[2022-03-20 19:27] LABS: Amphetamine Screen Urine Not Detected (Not Detect); Barbiturates, Urine Not Detected (Not Detect); Benzodiazepines Screen Urine Not Detected (Not Detect); Cannabinoid Screen Urine POSITIVE (Not Detect); Cocaine Screen Urine Not Detected (Not Detect); Fentanyl, urine Not Detected (Not Detect); Opiate Screen Urine Not Detected (Not Detect); Phencyclidine Screen Urine Not Detected (Not Detect)
[2022-03-20 19:35] VITALS: BP 107/74; PULSE 95; RESP 20; O2SAT 96
--- NOTE | 2022-03-20 19:39 | PC.NURSE ---
Patient was just got transferred from main ED by the provider, patient was agitated but consolable, patient has IV line on arrival was removed, per report patient was chemically restrained for agitation and restraint paper work is completed, compliant with changeover, currently in bed resting, will continue to monitor.
--- NOTE | 2022-03-20 22:36 | HE.PHANOTE ---
RE PERPHENAZINE Patient medication list states perphenazine 6mg bid and 8mg tid. per patient, takes 8mg bid as well and NOT TID, Med rec reflects patient endorsed meds
[2022-03-20 23:43] LABS: COVID-19 Test Negative (Negative); IDNOW Serial# 55D5AD1C
[2022-03-20 23:45] VITALS: BP 136/79; PULSE 77; RESP 16; TEMP 36.4; O2SAT 99
[2022-03-20] MEDS: Diphth,Pertus(ACell),Tet Adult 0.5 ML SYRINGE IM (23:57)
[2022-03-21] VITALS (9 sets, daily range): BP systolic 126–141; BP diastolic 78–88; PULSE 76–98; RESP 12–18; TEMP 36.7–36.8; O2SAT 96–97
--- NOTE | 2022-03-21 | ECG_ITS ---
Test Reason : MEDICAL CLEARANCE Blood Pressure : / mmHG Vent. Rate : 081 BPM Atrial Rate : 081 BPM P-R Int : 128 ms QRS Dur : 084 ms QT Int : 368 ms P-R-T Axes : 059 028 007 degrees QTc Int : 427 ms Normal sinus rhythm Possible Left atrial enlargement Borderline ECG When compared with ECG of 17-FEB-2022 04:51, No significant change was found Referred By: Arminda Maynard Electronically Signed By:Luther Pat
--- NOTE | 2022-03-21 00:02 | PC.NURSE ---
Tdap administered on Right deltoid as ordered/patient agreed and complaint with administration, CT of head completed/unremarkable, [facility] referral completed/Clinician on the way for evaluation, med rec completed by calling Nati Pina/JEANNIE updated, will continue to monitor.
[2022-03-21] MEDS: LORazepam 1 MG TABLET 2 MG PO (02:28)
[2022-03-21] MEDS: oxyCODONE HCl Immed Release 5 MG TABLET PO (02:28)
[2022-03-21] MEDS: Perphenazine 2 MG TABLET 6 MG PO ×2 (02:45→09:17)
[2022-03-21] MEDS: Perphenazine 8 MG TABLET PO ×3 (02:46→22:11)
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
--- NOTE | 2022-03-21 07:12 | PC.NURSE ---
patient awake upon arrival sitting in communal areas making simple psychotic sounding statements (tw) how are you/ , pt sometimes i drink from a can, sometimes you dont . gave client coffee, appears possibly tired but content.
[2022-03-21] MEDS: Gabapentin 300 MG CAPSULE 600 MG PO ×3 (09:17→22:08)
[2022-03-21] MEDS: OXcarbazepine 300 MG TABLET 600 MG PO ×2 (09:17→22:12)
[2022-03-21] MEDS: Docusate Sodium 100 MG CAPSULE PO ×2 (09:19→22:13)
[2022-03-21] MEDS: Ibuprofen 800 MG TABLET PO ×3 (09:19→22:08)
[2022-03-21] MEDS: Sennosides 8.6 MG TABLET 17.2 MG PO (09:19)
[2022-03-21] MEDS: DULoxetine HCl 60 MG CAPSULE.DR 120 MG PO (09:19)
[2022-03-21] MEDS: Benztropine Mesylate 1 MG TABLET PO ×3 (09:19→22:11)
--- NOTE | 2022-03-21 15:30 | PC.NURSE ---
Pt seen this date for individual OT tx. Pt presents with increased lethargy this date however receptive and pleasant. Pt declines discussing events that led up to his hospitalization stating I'd rather not talk about it . Interview completed with regard to leisure interests and pt reports working with [employer] as a hobby that he enjoys. Pt provided with play-danika, he is receptive and gratful and begins to work with play-prieto independantly.
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
[2022-03-21] MEDS: Tamsulosin HCL 0.4 MG CAPSULE PO (22:09)
[2022-03-21] MEDS: traZODone HCL 50 MG TABLET PO (22:14)
[2022-03-22] MEDS: Magnesium Hydrox/Alum Hydrox 30 ML ORAL.SUSP PO ×2 (00:58→21:24)
[2022-03-22] MEDS: hydrOXYzine HCL 25 MG TABLET PO (03:39)
[2022-03-22] MEDS: traZODone HCL 50 MG TABLET PO ×2 (03:39→20:47)
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
[2022-03-22] MEDS: oxyCODONE HCl Immed Release 5 MG TABLET PO ×2 (06:12→20:52)
[2022-03-22] MEDS: Acetaminophen 325 MG TABLET 650 MG PO (06:12)
[2022-03-22 07:55] VITALS: BP 128/77; PULSE 83; RESP 17; TEMP 36.8; O2SAT 97
[2022-03-22] MEDS: DULoxetine HCl 60 MG CAPSULE.DR 120 MG PO (07:57)
[2022-03-22] MEDS: Benztropine Mesylate 1 MG TABLET PO ×3 (07:58→20:45)
[2022-03-22] MEDS: OXcarbazepine 300 MG TABLET 600 MG PO ×2 (07:58→20:48)
[2022-03-22] MEDS: Ibuprofen 800 MG TABLET PO ×3 (07:58→20:44)
[2022-03-22] MEDS: Docusate Sodium 100 MG CAPSULE PO ×2 (07:58→20:47)
[2022-03-22] MEDS: Gabapentin 300 MG CAPSULE 600 MG PO ×3 (07:58→20:43)
[2022-03-22] MEDS: Sennosides 8.6 MG TABLET 17.2 MG PO (07:58)
[2022-03-22] MEDS: Perphenazine 8 MG TABLET PO ×2 (07:58→20:45)
[2022-03-22] MEDS: LORazepam 1 MG TABLET 2 MG PO ×2 (09:11→19:46)
[2022-03-22 09:20] LABS: Estimated Average Glucose 71 mg/dL; Hemoglobin A1c % 4.1 %
[2022-03-22 10:59] LABS: Folate 7.2 ng/mL (> or = 4.0); Vitamin B12 448 pg/mL (200-900)
[2022-03-22 14:25] LABS: Alanine Aminotransferase 25 U/L (0-40); Albumin Level 4.1 g/dL (3.5-5.0); Alkaline Phosphatase 54 U/L (39-117); Aspartate Amino Transferase 47 U/L (5-37); Bilirubin Direct 0.2 mg/dL (0.0-0.5); Bilirubin Total 0.4 mg/dL (0.0-1.0); Blood Urea Nitrogen 12 mg/dL (9-16); Calcium 8.6 mg/dL (8.4-10.2); Cholesterol 157 mg/dL; Creatinine Clr Calc Pharmacy 113.9; Estimated Glomerular Filt Rate > 60; Glucose Fasting 114 mg/dL (60-99); HDL Cholesterol 49 mg/dL; LDL Cholesterol Calculated 88 mg/dl; Total Protein 7.3 g/dL (6.5-8.0); Triglycerides 100 mg/dL
[2022-03-22 14:41] LABS: Thyroid Stimulating Hormone 1.08 uIU/mL (0.32-4.0)
[2022-03-22 14:48] LABS: Anion Gap 14 (12-20); Carbon Dioxide 23 mmol/L (22-29); Chloride 101 mmol/L (96-108); Potassium 4.8 mmol/L (3.3-5.1); Sodium 133 mmol/L (135-145)
[2022-03-22] MEDS: chlorproMAZINE HCl 100 MG TABLET PO (19:46)
[2022-03-22 20:45] VITALS: BP 140/94; PULSE 94; RESP 18; TEMP 36.3; O2SAT 94
[2022-03-22] MEDS: Tamsulosin HCL 0.4 MG CAPSULE PO (20:45)
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
[2022-03-23 08:56] VITALS: BMI 29.1
[2022-03-23] MEDS: Sennosides 8.6 MG TABLET 17.2 MG PO (09:10)
[2022-03-23] MEDS: Ibuprofen 800 MG TABLET PO ×3 (09:10→21:22)
[2022-03-23] MEDS: Perphenazine 8 MG TABLET PO (09:10)
[2022-03-23] MEDS: Benztropine Mesylate 1 MG TABLET PO ×3 (09:10→21:22)
[2022-03-23] MEDS: Docusate Sodium 100 MG CAPSULE PO ×2 (09:10→21:22)
[2022-03-23] MEDS: Gabapentin 300 MG CAPSULE 600 MG PO ×3 (09:10→21:20)
[2022-03-23] MEDS: OXcarbazepine 300 MG TABLET 600 MG PO (09:11)
[2022-03-23 09:15] VITALS: BP 132/70; PULSE 90; RESP 17; TEMP 36.6; O2SAT 97
[2022-03-23] MEDS: LORazepam 1 MG TABLET 2 MG PO (09:32)
[2022-03-23] MEDS: chlorproMAZINE HCl 100 MG TABLET PO (09:32)
--- NOTE | 2022-03-23 16:00 | P.PNPSI_ITS ---
Subjective Subjective Date of Service: 03/23/22 Reason For Visit: Psychosis Interim History: pt found snoring loudly in bed late morning/early afternoon. mid-afternoon pt found up and about the unit, although appearing a bit sedated and unbalanced. he was relatively pleasant and amenable to interview, with a few flashes of anger during the conversation. he had received thorazine 100 and ativan 2 mg earlier in the day, and his sedation, relative pleasantness, and imbalance was attributed to those things. he appeared to have some difficulty retaining information and was falling asleep throughout the interview. after a very long and circuitous conversation we arrived at a place where he expressed a willingness to try tegretol instead of trileptal for mood stabilization. a main complaint of his is currently what sounds like fairly generalized pain and cramping which he is attributing to psychiatric medications. there are no overt signs of EPS, but some sort of dystonic rxn is possible. in addition, due to his recent spinal cord lesion, it is possible he is experiencing some sequelae which are causing the symptoms. per staff, denies AVH but appeared to be RIS. slept well after thorazine 100 and ativan 2 last night. this morning saying he wants to trash the unit and hurt people; received another thorazine 100 and ativan to with calming effect. Mental Status Exam Mental Status Exam Narrative: cooperative, largely. no PMA/PMR. speech nml in rate, amount, tone, latency, loudness. thoughts reasonably organized, but pt is sedated and having a hard time attending. affect generally calm and normo-intense with a couple of mild flashes of anger. mood not assessed, SI/HI/AVH not assessed. Diagnostics Vital Signs (24Hr): Vital Signs - 24 hr 03/22/22 20:45 03/23/22 09:15 Temperature 97.4 F 97.9 F Pulse Rate 94 90 Respiratory Rate 18 17 Blood Pressure 140/94 H 132/70 Pulse Oximetry 94 97 Oxygen Delivery Method Room Air Room Air BMI result Body Mass Index 29.1 Labs Results: 03/20/22 17:58 03/22/22 08:58 Labs: Laboratory Results - last 48 hr 03/22/22 03/22/22 03/22/22 08:58 08:58 08:58 Sodium 133 L Potassium 4.8 Chloride 101 Carbon Dioxide 23 Anion Gap 14 BUN 12 D Creatinine 0.73 Estim Creat Clear Calc 113.9 Estimated GFR > 60 Fasting Glucose 114 H Estimat Average Glucose 71 Hemoglobin A1c % 4.1 Calcium 8.6 Total Bilirubin 0.4 Direct Bilirubin 0.2 AST 47 H ALT 25 Alkaline Phosphatase 54 Total Protein 7.3 Albumin 4.1 Triglycerides 100 Cholesterol 157 D LDL Cholesterol, Calc 88 HDL Cholesterol 49 Vitamin B12 448 Folate 7.2 TSH 1.08 Imaging Radiology Impressions: ITS Impressions Head CT 03/20/22 23:40 IMPRESSION: No acute intracranial pathology. Medications Medications Current Medications Acetaminophen (Acetaminophen 325 Mg Tablet) 650 mg PO Q6H PRN PRN Reason: Headache/Pain Mild Scale (1-3) Last Admin: 03/22/22 06:12 Dose: 650 mg Al Hydroxide/Mg Hydroxide (Magnesium Hydrox/Alum Hydrox 30 Ml Oral.Susp) 30 ml PO Q6H PRN PRN Reason: Heartburn/Nausea Last Admin: 03/22/22 21:24 Dose: 30 ml Benztropine Mesylate (Benztropine Mesylate 1 Mg Tablet) 1 mg PO TID [facility] Last Admin: 03/23/22 14:52 Dose: 1 mg Carbamazepine (Carbamazepine Er 200 Mg Tab.Er.12h) 600 mg PO BID [facility] Chlorpromazine HCl (Chlorpromazine Hcl 25 Mg Tablet) 50 mg PO Q4H PRN PRN Reason: agitation. give with ativan 1 mg. Docusate Sodium (Docusate Sodium 100 Mg Capsule) 100 mg PO BID [facility] Last Admin: 03/23/22 09:10 Dose: 100 mg Duloxetine HCl (Duloxetine Hcl 60 Mg Capsule.Dr) 120 mg PO DAILY [facility] Last Admin: 03/23/22 11:23 Dose: Not Given Gabapentin (Gabapentin 300 Mg Capsule) 600 mg PO TID [facility] Last Admin: 03/23/22 14:51 Dose: 600 mg Hydroxyzine HCl (Hydroxyzine Hcl 25 Mg Tablet) 25 mg PO Q6H PRN PRN Reason: Anxiety Last Admin: 03/22/22 03:39 Dose: 25 mg Ibuprofen (Ibuprofen 800 Mg Tablet) 800 mg PO TID [facility] Last Admin: 03/23/22 14:51 Dose: 800 mg Lorazepam (Lorazepam 1 Mg Tablet) 1 mg PO Q4H PRN PRN Reason: agitation. give w/thorazine 50 Magnesium Hydroxide (Milk Of Magnesia 30 Ml Oral.Susp) 30 ml PO DAILY PRN PRN Reason: Constipation Nicotine Polacrilex (Nicotine Polacrilex 2 Mg Gum) 2 mg BUCCAL Q1H PRN PRN Reason: Nicotine Cravings Nicotine Polacrilex (Nicotine Polacrilex Lozenge 2 Mg Lozenge) 2 mg BUCCAL Q1H PRN PRN Reason: Nicotine Cravings Olanzapine (Olanzapine 10 Mg Vial) 10 mg IM BID PRN PRN Reason: refusal of trilafon, per yogesh Oxycodone HCl (Oxycodone Hcl Immed Release 5 Mg Tablet) 5 mg PO Q12H PRN PRN Reason: Pain, Moderate (Pain Scale 4-6 Last Admin: 03/22/22 20:52 Dose: 5 mg Perphenazine (Perphenazine 8 Mg Tablet) 16 mg PO BID CHANDA Senna (Sennosides 8.6 Mg Tablet) 17.2 mg PO DAILY [facility] Last Admin: 03/23/22 09:10 Dose: 17.2 mg Tamsulosin HCl (Tamsulosin Hcl 0.4 Mg Capsule) 0.4 mg PO BEDTIME [facility] Last Admin: 03/22/22 20:45 Dose: 0.4 mg Trazodone HCl (Trazodone Hcl 50 Mg Tablet) 50 mg PO BEDTIME CHANDA Last Admin: 03/22/22 20:47 Dose: 50 mg Trazodone HCl (Trazodone Hcl 50 Mg Tablet) 50 mg PO BEDTIME PRN PRN Reason: Insomnia Last Admin: 03/22/22 03:39 Dose: 50 mg Allergies Allergies Allergy/AdvReac Type Severity Reaction Status Date / Time haloperidol [From HALDOL] Allergy Intermediate UNKNOWN Verified 03/16/22 14:25 Assessment & Plan Assessment & Plan (1) Sandrita: Status: Acute Code(s): F30.9 - Manic episode, unspecified Plan 03/22: continue outpt meds for now. t/c ranitidine for GERD, incr in gabapentin for pain, trazodone for sleep. educate re evidence-based mood stabilizers and attempt to get pt to take one of the three. 03/23: agrees to trial of tegretol in place of trileptal. trileptal DCed and tegretol started at 600 BID. perphenazine increased to 16 BID and IM back-ups prescribed. requesting neuro consult to see if any post-lesion syndrome may account for c/o cramps/pain and if there is anything that may be done to help. thorazine and ativan PRNs prescribed. I spent ___40___ minutes with the patient and/or on the patient floor today, greater than?50% of which was spent counseling/coordinating care. Reason for contiued inpatient stay Substantial Risk for: harm to self, harm to others, inability to function and rapid decompensation
[2022-03-23] MEDS: chlorproMAZINE HCl 25 MG TABLET 50 MG PO (20:02)
[2022-03-23] MEDS: LORazepam 1 MG TABLET PO (20:02)
[2022-03-23 20:19] VITALS: BP 160/94; PULSE 95; TEMP 36.7; O2SAT 96
[2022-03-23] MEDS: Tamsulosin HCL 0.4 MG CAPSULE PO (21:21)
[2022-03-23] MEDS: OLANZapine 10 MG VIAL IM (21:48)
[2022-03-23] MEDS: traZODone HCL 50 MG TABLET PO ×2 (21:56)
[2022-03-24] MEDS: LORazepam 1 MG TABLET PO ×2 (03:07→20:09)
[2022-03-24] MEDS: chlorproMAZINE HCl 25 MG TABLET 50 MG PO ×2 (03:07→20:09)
[2022-03-24] MEDS: hydrOXYzine HCL 25 MG TABLET PO (04:01)
[2022-03-24] MEDS: oxyCODONE HCl Immed Release 5 MG TABLET PO (04:02)
[2022-03-24 08:00] VITALS: BP 146/87; PULSE 106; RESP 18; TEMP 36.6; O2SAT 96
[2022-03-24] MEDS: Ibuprofen 800 MG TABLET PO ×3 (08:54→20:08)
[2022-03-24] MEDS: DULoxetine HCl 60 MG CAPSULE.DR 120 MG PO (08:55)
[2022-03-24] MEDS: Perphenazine 8 MG TABLET 16 MG PO ×2 (08:56→20:08)
[2022-03-24] MEDS: Gabapentin 300 MG CAPSULE 600 MG PO ×3 (08:57→20:09)
[2022-03-24] MEDS: Benztropine Mesylate 1 MG TABLET PO ×3 (08:58→20:09)
[2022-03-24] MEDS: carBAMazepine ER 200 MG TAB.ER.12H 600 MG PO (09:01)
--- NOTE | 2022-03-24 12:36 | PM.NEUROCN ---
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 He was sent to [facility] in his back.? He had one dose of IV steroids.? His strength seems to be improving.? MRI of the brain shows a few subtle periventricular white matter lesions. Since then he has had progressive improvement and is almost back to normal except for subtle weakness in the right upper extremity. Followup MRI still shows the cervical cord lesion with a little bit of enhancement. This is most consistent with myelitis going by the clinical picture. Review of Systems Review of Systems: Yes Unobtainable due to mental status PMFSH Past Medical History Medical History Psychosis Right hemiparesis Schizophrenia Spinal cord lesion Substance abuse Family History Family History Father Medical history unknown Mother Medical history unknown Surgical History Surgical History History of liver biopsy Social History Social History Household Members: Other Household Members Other:: Senior Care Housing: Other Housing Other:: Senior Care Do you presently have visiting nurse or other home services: No Unable to assess alcohol history related to: Refusing to respond Alcohol intake: former Patient Tobacco Use Status: Current everyday Tobacco user Tobacco use type: Cigarette Cigarette Packs Per Day: 1 Cigarettes Per Day: 20.0 Smoked in Last 30 Days: Yes e-Cigarette/Vaping Use: Former Use Patient Interested in Nicotine Replacement: Yes (wants gum and lozenge) Patient Given Instructions on How to Stop Smoking: No (not interested) Second Hand Smoke Exposure: Yes Use of substances other than those prescribed or required for medical reasons: Yes Substance Use Type: Crack/Cocaine, Heroin and Marijuana Substance Use Frequency: Occasionally Last Used Substance: Unknown Last Used Substance Other:: Utox positive for marijuana only Currently Displaying Signs/Symptoms of Drug Intoxication Withdrawal: No Any prior treatment program specific to substance use: No Do you feel safe in your current relationship?: No Current Relationship Is there a partner from a previous relationship who is making you feel unsafe now?: No Are you made to feel afraid or neglected: No Spiritual Healthcare Practices: none Mandaeism Healthcare Practices: none Cultural Healthcare Practices: none Advance Directives: No Advance Directives Information Provided: No Advance Directives on File: No Do you have thoughts of harming others: None Do you have a plan to hurt others: No Plan Recently lost weight without trying: No Eating poorly because of decreased appetite: No Nutrition Risks: No Nutritional Risk Poor oral hygiene: No service: No Current occupational status: disabled Sexual orientation: Did not discuss. Cognitive needs: No Hearing needs: No Vision needs: No Meds Allergies Allergy/AdvReac Type Severity Reaction Status Date / Time haloperidol [From HALDOL] Allergy Intermediate UNKNOWN Verified 03/16/22 14:25 Active Medications: Current Medications Acetaminophen (Acetaminophen 325 Mg Tablet) 650 mg PO Q6H PRN PRN Reason: Headache/Pain Mild Scale (1-3) Last Admin: 03/22/22 06:12 Dose: 650 mg Al Hydroxide/Mg Hydroxide (Magnesium Hydrox/Alum Hydrox 30 Ml Oral.Susp) 30 ml PO Q6H PRN PRN Reason: Heartburn/Nausea Last Admin: 03/22/22 21:24 Dose: 30 ml Benztropine Mesylate (Benztropine Mesylate 1 Mg Tablet) 1 mg PO TID [facility] Last Admin: 03/24/22 08:58 Dose: 1 mg Carbamazepine (Carbamazepine Er 200 Mg Tab.Er.12h) 600 mg PO BID [facility] Last Admin: 03/24/22 09:01 Dose: 200 mg Chlorpromazine HCl (Chlorpromazine Hcl 25 Mg Tablet) 50 mg PO Q4H PRN PRN Reason: agitation. give with ativan 1 mg. Last Admin: 03/24/22 03:07 Dose: 50 mg Docusate Sodium (Docusate Sodium 100 Mg Capsule) 100 mg PO BID [facility] Last Admin: 03/24/22 09:07 Dose: Not Given Duloxetine HCl (Duloxetine Hcl 60 Mg Capsule.Dr) 120 mg PO DAILY [facility] Last Admin: 03/24/22 08:55 Dose: 120 mg Gabapentin (Gabapentin 300 Mg Capsule) 600 mg PO TID [facility] Last Admin: 03/24/22 08:57 Dose: 600 mg Hydroxyzine HCl (Hydroxyzine Hcl 25 Mg Tablet) 25 mg PO Q6H PRN PRN Reason: Anxiety Last Admin: 03/24/22 04:01 Dose: 25 mg Ibuprofen (Ibuprofen 800 Mg Tablet) 800 mg PO TID [facility] Last Admin: 03/24/22 08:54 Dose: 800 mg Lorazepam (Lorazepam 1 Mg Tablet) 1 mg PO Q4H PRN PRN Reason: agitation. give w/thorazine 50 Last Admin: 03/24/22 03:07 Dose: 1 mg Magnesium Hydroxide (Milk Of Magnesia 30 Ml Oral.Susp) 30 ml PO DAILY PRN PRN Reason: Constipation Nicotine Polacrilex (Nicotine Polacrilex 2 Mg Gum) 2 mg BUCCAL Q1H PRN PRN Reason: Nicotine Cravings Nicotine Polacrilex (Nicotine Polacrilex Lozenge 2 Mg Lozenge) 2 mg BUCCAL Q1H PRN PRN Reason: Nicotine Cravings Olanzapine (Olanzapine 10 Mg Vial) 10 mg IM BID PRN PRN Reason: refusal of stanislav jung Last Admin: 03/23/22 21:48 Dose: 10 mg Oxycodone HCl (Oxycodone Hcl Immed Release 5 Mg Tablet) 5 mg PO Q12H PRN PRN Reason: Pain, Moderate (Pain Scale 4-6 Last Admin: 03/24/22 04:02 Dose: 5 mg Perphenazine (Perphenazine 8 Mg Tablet) 16 mg PO BID [facility] Last Admin: 03/24/22 08:56 Dose: 16 mg Senna (Sennosides 8.6 Mg Tablet) 17.2 mg PO DAILY [facility] Last Admin: 03/24/22 09:08 Dose: Not Given Tamsulosin HCl (Tamsulosin Hcl 0.4 Mg Capsule) 0.4 mg PO BEDTIME [facility] Last Admin: 03/23/22 21:21 Dose: 0.4 mg Trazodone HCl (Trazodone Hcl 50 Mg Tablet) 50 mg PO BEDTIME [facility] Last Admin: 03/23/22 21:56 Dose: 50 mg Trazodone HCl (Trazodone Hcl 50 Mg Tablet) 50 mg PO BEDTIME PRN PRN Reason: Insomnia Last Admin: 03/23/22 21:56 Dose: 50 mg Home Medications Medication Instructions Recorded Confirmed Last Taken Type acetaminophen 325 mg tablet 2 tab PO Q6H PRN Pain 03/20/22 03/20/22 Unknown History benztropine 1 mg tablet 1 tab PO TID 03/20/22 03/20/22 Unknown History docusate sodium 100 mg capsule 1 cap PO BID 03/20/22 03/20/22 Unknown History duloxetine 60 mg capsule,delayed 2 cap PO DAILY 03/20/22 03/20/22 Unknown History release gabapentin 300 mg capsule 2 cap PO TID 03/20/22 03/20/22 Unknown History ibuprofen 800 mg tablet 1 tab PO TID 03/20/22 03/20/22 Unknown History oxcarbazepine 600 mg tablet 1 tab PO BID 03/20/22 03/20/22 Unknown History oxycodone 5 mg tablet 1 tab PO Q12H PRN pain 03/20/22 03/20/22 Unknown History perphenazine 2 mg tablet 3 tab PO BID 03/20/22 03/20/22 Unknown History perphenazine 8 mg tablet 1 tab PO BID 03/20/22 03/20/22 Unknown History sennosides 8.6 mg tablet (senna) 2 tab PO DAILY 03/20/22 03/20/22 Unknown History tamsulosin 0.4 mg capsule 1 cap PO BEDTIME 03/20/22 03/20/22 Unknown History trazodone 50 mg tablet 1 tab PO BEDTIME 03/20/22 03/20/22 Unknown History Physical Exam Vital Signs: Vital Signs: Last Vital Signs Temp 97.9 F 03/24/22 08:00 Pulse 106 H 03/24/22 08:00 Resp 18 03/24/22 08:00 BP 146/87 H 03/24/22 08:00 Pulse Ox 96 03/24/22 08:00 O2 Del Method 03/24/22 08:00 BMI result Body Mass Index 29.1 Neuro: Other: Subtle right upper extremity weakness in the deltoid and triceps otherwise normal exam with no spasticity. Normal reflexes. Equivocal extensor plantar response on the right Results Labs CBC & Chem 7: 03/20/22 17:58 03/22/22 08:58 Assessment and Plan (1) Sandrita: Status: Acute (2) Myelitis: Status: Acute Plan Nerves been considerable improvement in his neurological deficits which goes along with her diagnosis of myelitis of his cervical cord at to see 2 level. There is no need for further steroids at this point. I expect she will continue to improve. A followup MRI of the cervical cord should be done in 2 months with and without gadolinium. I would check him for AIDS. Nothing further needs to be done neurologically. Procedures Date of Service Date of Service: 03/24/22
[2022-03-24] MEDS: Triamcinolone Acet 0.025 % Cream 15 GM TUBE 1 APPL TOPICAL (14:10)
--- NOTE | 2022-03-24 15:00 | P.PNPSI_ITS ---
Subjective Subjective Date of Service: 03/24/22 Reason For Visit: Psychosis Interim History: calm, cooperative. c/o rash, onychomycosis, xerostomia, sensation and belief that some kind of worms are coming out of the top of his head which turn into flies and fly away once out. interested in cream for rash, artificial saliva for xerostomia. MD offers that as well as lozenges for xerostomia. MD observes he did not take tegretol last night and only took 200 mg this morning. pt states he forgot and expresses the intention of taking the tegretol tonight. no other complaints or requests. per staff, sedated, falling asleep in groups, stumbling on the unit and needing help with ambulation yesterday. listening to music when awake. got about 4 hours of sleep. c/o AH, tactile hallucinations. inappropriate question to female staff: how much, hypothetically, would you charge to come into bed with me? refused tegretol and perphenazine last night, got IM zyprexa. rash. Mental Status Exam Mental Status Exam Narrative: cooperative, largely. no PMA/PMR. speech nml in rate, amount, tone, latency, loudness. thoughts reasonably organized. affect generally calm and normo-in tense with a couple of mild flashes of anger. mood not assessed, SI/HI/AVH not assessed. Diagnostics Vital Signs (24Hr): Vital Signs - 24 hr 03/23/22 20:19 03/24/22 08:00 Temperature 98.1 F 97.9 F Pulse Rate 95 106 H Respiratory Rate 18 Blood Pressure 160/94 H 146/87 H Pulse Oximetry 96 96 Oxygen Delivery Method Room Air Room Air BMI result Body Mass Index 29.1 Labs Results: 03/20/22 17:58 03/22/22 08:58 Imaging Radiology Impressions: ITS Impressions Head CT 03/20/22 23:40 IMPRESSION: No acute intracranial pathology. Medications Medications Current Medications Acetaminophen (Acetaminophen 325 Mg Tablet) 650 mg PO Q6H PRN PRN Reason: Headache/Pain Mild Scale (1-3) Last Admin: 03/22/22 06:12 Dose: 650 mg Al Hydroxide/Mg Hydroxide (Magnesium Hydrox/Alum Hydrox 30 Ml Oral.Susp) 30 ml PO Q6H PRN PRN Reason: Heartburn/Nausea Last Admin: 03/22/22 21:24 Dose: 30 ml Benztropine Mesylate (Benztropine Mesylate 1 Mg Tablet) 1 mg PO TID [facility] Last Admin: 03/24/22 08:58 Dose: 1 mg Carbamazepine (Carbamazepine Er 200 Mg Tab.Er.12h) 600 mg PO BID [facility] Last Admin: 03/24/22 09:01 Dose: 200 mg Chlorpromazine HCl (Chlorpromazine Hcl 25 Mg Tablet) 50 mg PO Q4H PRN PRN Reason: agitation. give with ativan 1 mg. Last Admin: 03/24/22 03:07 Dose: 50 mg Docusate Sodium (Docusate Sodium 100 Mg Capsule) 100 mg PO BID [facility] Last Admin: 03/24/22 09:07 Dose: Not Given Duloxetine HCl (Duloxetine Hcl 60 Mg Capsule.Dr) 120 mg PO DAILY [facility] Last Admin: 03/24/22 08:55 Dose: 120 mg Gabapentin (Gabapentin 300 Mg Capsule) 600 mg PO TID [facility] Last Admin: 03/24/22 08:57 Dose: 600 mg Hydroxyzine HCl (Hydroxyzine Hcl 25 Mg Tablet) 25 mg PO Q6H PRN PRN Reason: Anxiety Last Admin: 03/24/22 04:01 Dose: 25 mg Ibuprofen (Ibuprofen 800 Mg Tablet) 800 mg PO TID [facility] Last Admin: 03/24/22 08:54 Dose: 800 mg Lorazepam (Lorazepam 1 Mg Tablet) 1 mg PO Q4H PRN PRN Reason: agitation. give w/thorazine 50 Last Admin: 03/24/22 03:07 Dose: 1 mg Magnesium Hydroxide (Milk Of Magnesia 30 Ml Oral.Susp) 30 ml PO DAILY PRN PRN Reason: Constipation Nicotine Polacrilex (Nicotine Polacrilex 2 Mg Gum) 2 mg BUCCAL Q1H PRN PRN Reason: Nicotine Cravings Nicotine Polacrilex (Nicotine Polacrilex Lozenge 2 Mg Lozenge) 2 mg BUCCAL Q1H PRN PRN Reason: Nicotine Cravings Olanzapine (Olanzapine 10 Mg Vial) 10 mg IM BID PRN PRN Reason: refusal of trilafonstanislav Last Admin: 03/23/22 21:48 Dose: 10 mg Oxycodone HCl (Oxycodone Hcl Immed Release 5 Mg Tablet) 5 mg PO Q12H PRN PRN Reason: Pain, Moderate (Pain Scale 4-6 Last Admin: 03/24/22 04:02 Dose: 5 mg Perphenazine (Perphenazine 8 Mg Tablet) 16 mg PO BID [facility] Last Admin: 03/24/22 08:56 Dose: 16 mg Saliva Substitute (Dry Mouth Minong 60 Ml Minong) 1 spray MUCOUS MEM Q2H PRN PRN Reason: xerostomia Senna (Sennosides 8.6 Mg Tablet) 17.2 mg PO DAILY [facility] Last Admin: 03/24/22 09:08 Dose: Not Given Tamsulosin HCl (Tamsulosin Hcl 0.4 Mg Capsule) 0.4 mg PO BEDTIME [facility] Last Admin: 03/23/22 21:21 Dose: 0.4 mg Trazodone HCl (Trazodone Hcl 50 Mg Tablet) 50 mg PO BEDTIME [facility] Last Admin: 03/23/22 21:56 Dose: 50 mg Trazodone HCl (Trazodone Hcl 50 Mg Tablet) 50 mg PO BEDTIME PRN PRN Reason: Insomnia Last Admin: 03/23/22 21:56 Dose: 50 mg Triamcinolone Acetonide (Triamcinolone Acet 0.025 % Cream 15 Gm Tube) 1 appl TOPICAL BID [facility]; Protocol Last Admin: 03/24/22 14:10 Dose: 1 appl Allergies Allergies Allergy/AdvReac Type Severity Reaction Status Date / Time haloperidol [From HALDOL] Allergy Intermediate UNKNOWN Verified 03/16/22 14:25 Assessment & Plan Assessment & Plan (1) Sandrita: Status: Acute Code(s): F30.9 - Manic episode, unspecified (2) Myelitis: Status: Acute Code(s): G04.91 - Myelitis, unspecified Assessment and Plan: Nerves been considerable improvement in his neurological deficits which goes along with her diagnosis of myelitis of his cervical cord at to see 2 level. There is no need for further steroids at this point. I expect she will continue to improve. A followup MRI of the cervical cord should be done in 2 months with and without gadolinium. I would check him for AIDS. Nothing further needs to be done neurologically. Plan 03/22: continue outpt meds for now.? t/c ranitidine for GERD, incr in gabapentin for pain, trazodone for sleep.? educate re evidence-based mood stabilizers and attempt to get pt to take one of the three. 7/7: agrees to trial of tegretol in place of trileptal.? trileptal DCed and tegretol started at 600 BID.? perphenazine increased to 16 BID and IM back-ups prescribed.? requesting neuro consult to see if any post-lesion syndrome may account for c/o cramps/pain and if there is anything that may be done to help.? thorazine and ativan PRNs prescribed. 03/24: per neuro consult, no need for further neuro w/u or intervention, pt recovering well from myelitis. check HIV1&2. steroid cream for rash, artificial saliva/lozenges Rxed. encouraged to take tegretol, which he had said he would do yesterday but which he has not done (aside from 200 mg). I spent ___35___ minutes with the patient and/or on the patient floor today, greater than?50% of which was spent counseling/coordinating care. Reason for contiued inpatient stay Substantial Risk for: harm to others, inability to function and rapid decompensation
[2022-03-24] MEDS: Baclofen 10 MG TABLET PO ×2 (15:36→20:09)
--- NOTE | 2022-03-24 16:40 | HO.PM.IMCN ---
History of Present Illness Data of Consult Service Date: 03/24/22 Primary Care Provider: John Paul Rosenthal MD [facility] Reason for consult: Skin rash 51-year-old male with a past medical history of opiate dependence- remote use of IV drugs, schizophrenia was dischrged from the hospital to rehab around February 21 after treatment in the hospital for demyelinating disease at C1-C2 levels with right hemiparesis and treated with IVIG. I am uncertain how long he was at rehab but he is presently admitted to inpatient Psych and I am ask to evaluate him for has on arms, legs, palms that are itchy, bumps, ezcema looking and look older than few days--see pictures. He told me he noticed it today but then he also states that it's been there for a while and maybe got it from walking in sun Review of Systems Review of Systems: itchy jeff no fever no chills Yes all other systems are reviewed and are negative PMFSH Medical History Psychosis Right hemiparesis Schizophrenia Spinal cord lesion Substance abuse Family History Father Medical history unknown Mother Medical history unknown Surgical History History of liver biopsy Social History Household Members: Other Household Members Other:: [facility] Housing: Other Housing Other:: [facility] Do you presently have visiting nurse or other home services: No Unable to assess alcohol history related to: Refusing to respond Alcohol intake: former Patient Tobacco Use Status: Current everyday Tobacco user Tobacco use type: Cigarette Cigarette Packs Per Day: 1 Cigarettes Per Day: 20.0 Smoked in Last 30 Days: Yes e-Cigarette/Vaping Use: Former Use Patient Interested in Nicotine Replacement: Yes (wants gum and lozenge) Patient Given Instructions on How to Stop Smoking: No (not interested) Second Hand Smoke Exposure: Yes Use of substances other than those prescribed or required for medical reasons: Yes Substance Use Type: Crack/Cocaine, Heroin and Marijuana Substance Use Frequency: Occasionally Last Used Substance: Unknown Last Used Substance Other:: Utox positive for marijuana only Currently Displaying Signs/Symptoms of Drug Intoxication Withdrawal: No Any prior treatment program specific to substance use: No Do you feel safe in your current relationship?: No Current Relationship Is there a partner from a previous relationship who is making you feel unsafe now?: No Are you made to feel afraid or neglected: No Spiritual Healthcare Practices: none Islam Healthcare Practices: none Cultural Healthcare Practices: none Advance Directives: No Advance Directives Information Provided: No Advance Directives on File: No Do you have thoughts of harming others: None Do you have a plan to hurt others: No Plan Recently lost weight without trying: No Eating poorly because of decreased appetite: No Nutrition Risks: No Nutritional Risk Poor oral hygiene: No service: No Current occupational status: disabled Sexual orientation: Did not discuss. Cognitive needs: No Hearing needs: No Vision needs: No Meds Allergies Allergy/AdvReac Type Severity Reaction Status Date / Time haloperidol [From HALDOL] Allergy Intermediate UNKNOWN Verified 03/16/22 14:25 Active Medications: Current Medications Acetaminophen (Acetaminophen 325 Mg Tablet) 650 mg PO Q6H PRN PRN Reason: Headache/Pain Mild Scale (1-3) Last Admin: 03/22/22 06:12 Dose: 650 mg Al Hydroxide/Mg Hydroxide (Magnesium Hydrox/Alum Hydrox 30 Ml Oral.Susp) 30 ml PO Q6H PRN PRN Reason: Heartburn/Nausea Last Admin: 03/22/22 21:24 Dose: 30 ml Baclofen (Baclofen 10 Mg Tablet) 10 mg PO TID [facility] Last Admin: 03/24/22 15:36 Dose: 10 mg Benzocaine (Throat Lozenge, Medicated Lozenge) 1 lozenge MUCOUS MEM Q1H PRN PRN Reason: xerostomia Benztropine Mesylate (Benztropine Mesylate 1 Mg Tablet) 1 mg PO TID [facility] Last Admin: 03/24/22 15:05 Dose: 1 mg Carbamazepine (Carbamazepine Er 200 Mg Tab.Er.12h) 600 mg PO BID [facility] Last Admin: 03/24/22 09:01 Dose: 200 mg Chlorpromazine HCl (Chlorpromazine Hcl 25 Mg Tablet) 50 mg PO Q4H PRN PRN Reason: agitation. give with ativan 1 mg. Last Admin: 03/24/22 03:07 Dose: 50 mg Docusate Sodium (Docusate Sodium 100 Mg Capsule) 100 mg PO BID [facility] Last Admin: 03/24/22 09:07 Dose: Not Given Duloxetine HCl (Duloxetine Hcl 60 Mg Capsule.Dr) 120 mg PO DAILY [facility] Last Admin: 03/24/22 08:55 Dose: 120 mg Gabapentin (Gabapentin 300 Mg Capsule) 600 mg PO TID [facility] Last Admin: 03/24/22 15:05 Dose: 600 mg Hydroxyzine HCl (Hydroxyzine Hcl 25 Mg Tablet) 25 mg PO Q6H PRN PRN Reason: Anxiety Last Admin: 03/24/22 04:01 Dose: 25 mg Ibuprofen (Ibuprofen 800 Mg Tablet) 800 mg PO TID [facility] Last Admin: 03/24/22 15:03 Dose: 800 mg Lorazepam (Lorazepam 1 Mg Tablet) 1 mg PO Q4H PRN PRN Reason: agitation. give w/thorazine 50 Last Admin: 03/24/22 03:07 Dose: 1 mg Magnesium Hydroxide (Milk Of Magnesia 30 Ml Oral.Susp) 30 ml PO DAILY PRN PRN Reason: Constipation Nicotine Polacrilex (Nicotine Polacrilex 2 Mg Gum) 2 mg BUCCAL Q1H PRN PRN Reason: Nicotine Cravings Nicotine Polacrilex (Nicotine Polacrilex Lozenge 2 Mg Lozenge) 2 mg BUCCAL Q1H PRN PRN Reason: Nicotine Cravings Olanzapine (Olanzapine 10 Mg Vial) 10 mg IM BID PRN PRN Reason: refusal of trilafonstanislav Last Admin: 03/23/22 21:48 Dose: 10 mg Oxycodone HCl (Oxycodone Hcl Immed Release 5 Mg Tablet) 5 mg PO Q12H PRN PRN Reason: Pain, Moderate (Pain Scale 4-6 Last Admin: 03/24/22 04:02 Dose: 5 mg Permethrin (Permethrin 5 % Cream 60 Gm Tube) 1 appl TOPICAL ONCE ONE; Protocol Stop: 03/24/22 16:37 Perphenazine (Perphenazine 8 Mg Tablet) 16 mg PO BID [facility] Last Admin: 03/24/22 08:56 Dose: 16 mg Saliva Substitute (Dry [place]outh [place] 60 Ml [place]) 1 spray MUCOUS MEM Q2H PRN PRN Reason: xerostomia Senna (Sennosides 8.6 Mg Tablet) 17.2 mg PO DAILY [facility] Last Admin: 03/24/22 09:08 Dose: Not Given Tamsulosin HCl (Tamsulosin Hcl 0.4 Mg Capsule) 0.4 mg PO BEDTIME [facility] Last Admin: 03/23/22 21:21 Dose: 0.4 mg Trazodone HCl (Trazodone Hcl 50 Mg Tablet) 50 mg PO BEDTIME [facility] Last Admin: 03/23/22 21:56 Dose: 50 mg Trazodone HCl (Trazodone Hcl 50 Mg Tablet) 50 mg PO BEDTIME PRN PRN Reason: Insomnia Last Admin: 03/23/22 21:56 Dose: 50 mg Triamcinolone Acetonide (Triamcinolone Acet 0.025 % Cream 15 Gm Tube) 1 appl TOPICAL BID [facility]; Protocol Last Admin: 03/24/22 14:10 Dose: 1 appl Home Medications Medication Instructions Recorded Confirmed Last Taken Type acetaminophen 325 mg tablet 2 tab PO Q6H PRN Pain 03/20/22 03/20/22 Unknown History benztropine 1 mg tablet 1 tab PO TID 03/20/22 03/20/22 Unknown History docusate sodium 100 mg capsule 1 cap PO BID 03/20/22 03/20/22 Unknown History duloxetine 60 mg capsule,delayed 2 cap PO DAILY 03/20/22 03/20/22 Unknown History release gabapentin 300 mg capsule 2 cap PO TID 03/20/22 03/20/22 Unknown History ibuprofen 800 mg tablet 1 tab PO TID 03/20/22 03/20/22 Unknown History oxcarbazepine 600 mg tablet 1 tab PO BID 03/20/22 03/20/22 Unknown History oxycodone 5 mg tablet 1 tab PO Q12H PRN pain 03/20/22 03/20/22 Unknown History perphenazine 2 mg tablet 3 tab PO BID 03/20/22 03/20/22 Unknown History perphenazine 8 mg tablet 1 tab PO BID 03/20/22 03/20/22 Unknown History sennosides 8.6 mg tablet (senna) 2 tab PO DAILY 03/20/22 03/20/22 Unknown History tamsulosin 0.4 mg capsule 1 cap PO BEDTIME 03/20/22 03/20/22 Unknown History trazodone 50 mg tablet 1 tab PO BEDTIME 03/20/22 03/20/22 Unknown History Physical Exam Vital Signs and Narrative: Vital Signs: Last Vital Signs Temp 97.9 F 03/24/22 08:00 Pulse 106 H 03/24/22 08:00 Resp 18 03/24/22 08:00 BP 146/87 H 03/24/22 08:00 Pulse Ox 96 03/24/22 08:00 O2 Del Method 03/24/22 08:00 BMI result Body Mass Index 29.1 Const: Other: Constitutional: Alert, in no distress, overweight. Mental Status: Oriented to person, Eyes: Pupils are equal, round and reactive to light. Ear, Nose and Throat: Oropharynx clear, mucous membranes moist. Ears and nose without eformities. Trachea midline. Respiratory: Clear to auscultation. No wheezing, rales or rhonchi. Cardiovascular: S1 S2 regular. No murmurs, rubs or gallops. Gastrointestinal: Abdomen soft, non-tender, non-distended. Normal bowel sounds.? Neurologic: Cranial nerves II-XII grossly intact. No focal neurological deficits. Moves all extremities spontaneously.? Skin: rash few lesions on belly, not on bck or face or crease area, and not in genital areas Musculoskeletal: No cyanosis or clubbing. Psychiatric: Normal mood and affect? Results Labs CBC and Chem 7: 03/20/22 17:58 03/22/22 08:58 Assessment and Plan (1) Scabies: Status: Acute Plan Rash on legs, hands, knee, not on trunk--Appearance consistent with Scabies -Permethrin 5% to entire body and leave on for 14 hours before washing and repeat in 14 days -ID and infectious control consults -Staff aware and other close-contact should be offered prophylactic treatment Elevated BP and mild tachycardia, he seems pretty anxious--Monitor for now BPH Flomax Psychosis--management by Psych
[2022-03-24] MEDS: Permethrin 5 % Cream 60 GM TUBE 1 APPL TOPICAL (19:35)
[2022-03-24] MEDS: traZODone HCL 50 MG TABLET PO (20:08)
[2022-03-24] MEDS: Tamsulosin HCL 0.4 MG CAPSULE PO (20:09)
[2022-03-24] MEDS: Docusate Sodium 100 MG CAPSULE PO (20:10)
[2022-03-24] MEDS: Throat Lozenge, Medicated LOZENGE 1 LOZENGE MUCOUS MEM (20:10)
[2022-03-25] MEDS: hydrOXYzine HCL 25 MG TABLET PO (07:10)
[2022-03-25] MEDS: Acetaminophen 325 MG TABLET 650 MG PO ×2 (07:10→23:11)
[2022-03-25] MEDS: oxyCODONE HCl Immed Release 5 MG TABLET PO ×2 (07:10→20:32)
[2022-03-25 09:05] VITALS: BP 118/71; PULSE 97; RESP 18; TEMP 36.6; O2SAT 97
[2022-03-25] MEDS: Sennosides 8.6 MG TABLET 17.2 MG PO (09:09)
[2022-03-25] MEDS: Gabapentin 300 MG CAPSULE 600 MG PO ×3 (09:10→20:19)
[2022-03-25] MEDS: DULoxetine HCl 60 MG CAPSULE.DR 120 MG PO (09:10)
[2022-03-25] MEDS: Baclofen 10 MG TABLET PO ×3 (09:11→20:19)
[2022-03-25] MEDS: carBAMazepine ER 200 MG TAB.ER.12H 600 MG PO ×2 (09:11→20:19)
[2022-03-25] MEDS: Ibuprofen 800 MG TABLET PO ×3 (09:11→20:19)
[2022-03-25] MEDS: Perphenazine 8 MG TABLET 16 MG PO ×2 (09:13→20:18)
[2022-03-25] MEDS: Benztropine Mesylate 1 MG TABLET PO ×3 (09:13→20:18)
[2022-03-25] MEDS: Docusate Sodium 100 MG CAPSULE PO ×2 (09:26→20:19)
[2022-03-25] MEDS: Triamcinolone Acet 0.025 % Cream 15 GM TUBE 1 APPL TOPICAL (11:32)
[2022-03-25] MEDS: chlorproMAZINE HCl 25 MG TABLET 50 MG PO ×2 (16:29→20:33)
--- NOTE | 2022-03-25 16:54 | P.PNPSI_ITS ---
Subjective Subjective Date of Service: 03/25/22 Reason For Visit: Psychosis Interim History: pt reports he is sleeping well. had thorazine and ativan last night before bed. feeling better today than yesterday, mood less extreme. states often his mood goes back and forth between extreme and fine. MD observes he took the full 600 of tegretol this morning for the first time and encourages him to continue, linking his compliance with that medication to his feeling an improvement in his mood today. per staff, refused tegretol yesterday evening. this morning took all meds. a bit more agitated and paranoid this morning. Mental Status Exam Mental Status Exam Narrative: cooperative, calm. no PMA/PMR. speech nml in rate, amount, tone, latency, loudness. thoughts linear, logical. affect calm and normo-intense. mood improved today, more stable, no SI/HI/AVH expressed. Diagnostics Vital Signs (24Hr): Vital Signs - 24 hr 03/25/22 09:05 Temperature 97.9 F Pulse Rate 97 Respiratory Rate 18 Blood Pressure 118/71 Pulse Oximetry 97 Oxygen Delivery Method Room Air BMI result Body Mass Index 29.1 Labs Results: 03/20/22 17:58 03/22/22 08:58 Imaging Radiology Impressions: ITS Impressions Head CT 03/20/22 23:40 IMPRESSION: No acute intracranial pathology. Medications Medications Current Medications Acetaminophen (Acetaminophen 325 Mg Tablet) 650 mg PO Q6H PRN PRN Reason: Headache/Pain Mild Scale (1-3) Last Admin: 03/25/22 07:10 Dose: 650 mg Al Hydroxide/Mg Hydroxide (Magnesium Hydrox/Alum Hydrox 30 Ml Oral.Susp) 30 ml PO Q6H PRN PRN Reason: Heartburn/Nausea Last Admin: 03/22/22 21:24 Dose: 30 ml Baclofen (Baclofen 10 Mg Tablet) 10 mg PO TID [facility] Last Admin: 03/25/22 14:44 Dose: 10 mg Benzocaine (Throat Lozenge, Medicated Lozenge) 1 lozenge MUCOUS MEM Q1H PRN PRN Reason: xerostomia Last Admin: 03/24/22 20:10 Dose: 1 lozenge Benztropine Mesylate (Benztropine Mesylate 1 Mg Tablet) 1 mg PO TID [facility] Last Admin: 03/25/22 14:43 Dose: 1 mg Carbamazepine (Carbamazepine Er 200 Mg Tab.Er.12h) 600 mg PO BID [facility] Last Admin: 03/25/22 09:11 Dose: 600 mg Chlorpromazine HCl (Chlorpromazine Hcl 25 Mg Tablet) 50 mg PO Q4H PRN PRN Reason: agitation. give with ativan 1 mg. Last Admin: 03/25/22 16:29 Dose: 50 mg Docusate Sodium (Docusate Sodium 100 Mg Capsule) 100 mg PO BID [facility] Last Admin: 03/25/22 09:26 Dose: 100 mg Duloxetine HCl (Duloxetine Hcl 60 Mg Capsule.Dr) 120 mg PO DAILY [facility] Last Admin: 03/25/22 09:10 Dose: 120 mg Gabapentin (Gabapentin 300 Mg Capsule) 600 mg PO TID [facility] Last Admin: 03/25/22 14:44 Dose: 600 mg Hydroxyzine HCl (Hydroxyzine Hcl 25 Mg Tablet) 25 mg PO Q6H PRN PRN Reason: Anxiety Last Admin: 03/25/22 07:10 Dose: 25 mg Ibuprofen (Ibuprofen 800 Mg Tablet) 800 mg PO TID [facility] Last Admin: 03/25/22 14:43 Dose: 800 mg Lorazepam (Lorazepam 1 Mg Tablet) 1 mg PO Q4H PRN PRN Reason: agitation. give w/thorazine 50 Last Admin: 03/24/22 20:09 Dose: 1 mg Magnesium Hydroxide (Milk Of Magnesia 30 Ml Oral.Susp) 30 ml PO DAILY PRN PRN Reason: Constipation Nicotine Polacrilex (Nicotine Polacrilex 2 Mg Gum) 2 mg BUCCAL Q1H PRN PRN Reason: Nicotine Cravings Nicotine Polacrilex (Nicotine Polacrilex Lozenge 2 Mg Lozenge) 2 mg BUCCAL Q1H PRN PRN Reason: Nicotine Cravings Olanzapine (Olanzapine 10 Mg Vial) 10 mg IM BID PRN PRN Reason: refusal of stanislav jung Last Admin: 03/23/22 21:48 Dose: 10 mg Oxycodone HCl (Oxycodone Hcl Immed Release 5 Mg Tablet) 5 mg PO Q12H PRN PRN Reason: Pain, Moderate (Pain Scale 4-6 Last Admin: 03/25/22 07:10 Dose: 5 mg Perphenazine (Perphenazine 8 Mg Tablet) 16 mg PO BID [facility] Last Admin: 03/25/22 09:13 Dose: 16 mg Saliva Substitute (Dry Mouth [place] 60 Ml [place]) 1 spray MUCOUS MEM Q2H PRN PRN Reason: xerostomia Senna (Sennosides 8.6 Mg Tablet) 17.2 mg PO DAILY [facility] Last Admin: 03/25/22 09:09 Dose: 17.2 mg Tamsulosin HCl (Tamsulosin Hcl 0.4 Mg Capsule) 0.4 mg PO BEDTIME [facility] Last Admin: 03/24/22 20:09 Dose: 0.4 mg Trazodone HCl (Trazodone Hcl 50 Mg Tablet) 50 mg PO BEDTIME [facility] Last Admin: 03/24/22 20:08 Dose: 50 mg Trazodone HCl (Trazodone Hcl 50 Mg Tablet) 50 mg PO BEDTIME PRN PRN Reason: Insomnia Last Admin: 03/23/22 21:56 Dose: 50 mg Triamcinolone Acetonide (Triamcinolone Acet 0.025 % Cream 15 Gm Tube) 1 appl TOPICAL BID [facility]; Protocol Last Admin: 03/25/22 11:32 Dose: 1 appl Allergies Allergies Allergy/AdvReac Type Severity Reaction Status Date / Time haloperidol [From HALDOL] Allergy Intermediate UNKNOWN Verified 03/16/22 14:25 Assessment & Plan Assessment & Plan (1) Sandrita: Status: Acute Code(s): F30.9 - Manic episode, unspecified (2) Myelitis: Status: Acute Code(s): G04.91 - Myelitis, unspecified Assessment and Plan: Nerves been considerable improvement in his neurological deficits which goes along with her diagnosis of myelitis of his cervical cord at to see 2 level.? There is no need for further steroids at this point.? I expect she will continue to improve.? A followup MRI of the cervical cord should be done in 2 months with and without gadolinium.? I would check him for AIDS.? Nothing further needs to be done neurologically. Plan Plan 03/22: continue outpt meds for now.? t/c ranitidine for GERD, incr in gabapentin for pain, trazodone for sleep.? educate re evidence-based mood stabilizers and attempt to get pt to take one of the three. 03/23: agrees to trial of tegretol in place of trileptal.? trileptal DCed and tegretol started at 600 BID.? perphenazine increased to 16 BID and IM back-ups prescribed.? requesting neuro consult to see if any post-lesion syndrome may account for c/o cramps/pain and if there is anything that may be done to help.? thorazine and ativan PRNs prescribed. 03/24: per neuro consult, no need for further neuro w/u or intervention, pt recovering well from myelitis.? check HIV1&2.? steroid cream for rash, artificial saliva/lozenges Rxed.? encouraged to take tegretol, which he had said he would do yesterday but which he has not done (aside from 200 mg). 03/25: rash Dx as scabies, treated yesterday. took tegretol 600 this morning and reports improved mood today. encouraged compliance. I spent __15____ minutes with the patient and/or on the patient floor today, greater than?50% of which was spent counseling/coordinating care. Reason for contiued inpatient stay Substantial Risk for: inability to function and rapid decompensation
[2022-03-25] MEDS: Magnesium Hydrox/Alum Hydrox 30 ML ORAL.SUSP PO (17:22)
[2022-03-25 20:15] VITALS: BP 168/97; PULSE 98; RESP 18; TEMP 36.6; O2SAT 96
[2022-03-25] MEDS: traZODone HCL 50 MG TABLET PO ×2 (20:18→23:12)
[2022-03-25] MEDS: Tamsulosin HCL 0.4 MG CAPSULE PO (20:18)
[2022-03-25] MEDS: Throat Lozenge, Medicated LOZENGE 1 LOZENGE MUCOUS MEM (20:18)
[2022-03-25] MEDS: LORazepam 1 MG TABLET PO (20:18)
[2022-03-25] MEDS: Lidocaine 4 % Patch ADH..PATCH 1 PATCH TRANSDERMA (22:14)
[2022-03-26] MEDS: chlorproMAZINE HCl 25 MG TABLET 50 MG PO ×2 (00:25→12:32)
[2022-03-26] MEDS: LORazepam 1 MG TABLET PO ×2 (00:25→12:32)
[2022-03-26 09:00] VITALS: BP 116/63; PULSE 80; RESP 20; TEMP 36.7; O2SAT 98
[2022-03-26] MEDS: Gabapentin 300 MG CAPSULE 600 MG PO ×3 (09:10→23:23)
[2022-03-26] MEDS: Benztropine Mesylate 1 MG TABLET PO ×3 (09:11→23:24)
[2022-03-26] MEDS: Perphenazine 8 MG TABLET 16 MG PO ×2 (09:11→23:23)
[2022-03-26] MEDS: carBAMazepine ER 200 MG TAB.ER.12H 600 MG PO ×2 (09:11→23:24)
[2022-03-26] MEDS: Docusate Sodium 100 MG CAPSULE PO ×2 (09:11→23:43)
[2022-03-26] MEDS: DULoxetine HCl 60 MG CAPSULE.DR 120 MG PO (09:11)
[2022-03-26] MEDS: Ibuprofen 800 MG TABLET PO ×3 (09:11→23:24)
[2022-03-26] MEDS: Baclofen 10 MG TABLET PO ×3 (09:11→23:24)
[2022-03-26] MEDS: Sennosides 8.6 MG TABLET 17.2 MG PO (10:18)
[2022-03-26] MEDS: oxyCODONE HCl Immed Release 5 MG TABLET PO ×2 (10:19→23:23)
[2022-03-26] MEDS: Triamcinolone Acet 0.025 % Cream 15 GM TUBE 1 APPL TOPICAL (10:43)
--- NOTE | 2022-03-26 13:41 | HO.PSYCHPN ---
Subjective Subjective Date of Service: 03/26/22 Reason For Visit: Psychosis Interim History: pt appears somewhat sedated, tangential in thoughts. unclear why, likely due to medications. c/o red spots on penis and dysuria recently (resolved). also c/o itch in his perineal area. asking for cream. goes on about a problem with his credit card at some length, seems unable to appreciate that such a problem is not something MD would address for him. per staff, mned-compliant O/N and this morning. had tegretol last night and this morning. Mental Status Exam Mental Status Exam Narrative: cooperative, calm. no PMA/PMR. speech nml in rate, amount. flattened tone, decr latency, decr loudness. thoughts tangential. affect calm and hypo-intense. mood remains improved today, no SI/HI/AVH expressed. Diagnostics Vital Signs (24Hr): Vital Signs - 24 hr 03/25/22 20:15 03/26/22 09:00 Temperature 97.9 F 98.1 F Pulse Rate 98 80 Respiratory Rate 18 20 Blood Pressure 168/97 H 116/63 Pulse Oximetry 96 98 Oxygen Delivery Method Room Air Room Air BMI result Body Mass Index 29.1 Labs Results: 03/20/22 17:58 03/22/22 08:58 Imaging Radiology Impressions: ITS Impressions Head CT 03/20/22 23:40 IMPRESSION: No acute intracranial pathology. Medications Medications Current Medications Acetaminophen (Acetaminophen 325 Mg Tablet) 650 mg PO Q6H PRN PRN Reason: Headache/Pain Mild Scale (1-3) Last Admin: 03/25/22 23:11 Dose: 650 mg Al Hydroxide/Mg Hydroxide (Magnesium Hydrox/Alum Hydrox 30 Ml Oral.Susp) 30 ml PO Q6H PRN PRN Reason: Heartburn/Nausea Last Admin: 03/25/22 17:22 Dose: 30 ml Baclofen (Baclofen 10 Mg Tablet) 10 mg PO TID [facility] Last Admin: 03/26/22 09:11 Dose: 10 mg Benzocaine (Throat Lozenge, Medicated Lozenge) 1 lozenge MUCOUS MEM Q1H PRN PRN Reason: xerostomia Last Admin: 03/25/22 20:18 Dose: 1 lozenge Benztropine Mesylate (Benztropine Mesylate 1 Mg Tablet) 1 mg PO TID [facility] Last Admin: 03/26/22 09:11 Dose: 1 mg Calcium Carbonate (Calcium Carbonate 750 Mg Tab.Chew) 750 mg PO Q4H PRN PRN Reason: Dyspepsia Carbamazepine (Carbamazepine Er 200 Mg Tab.Er.12h) 600 mg PO BID [facility] Last Admin: 03/26/22 09:11 Dose: 600 mg Chlorpromazine HCl (Chlorpromazine Hcl 25 Mg Tablet) 50 mg PO Q4H PRN PRN Reason: agitation. give with ativan 1 mg. Last Admin: 03/26/22 12:32 Dose: 50 mg Docusate Sodium (Docusate Sodium 100 Mg Capsule) 100 mg PO BID [facility] Last Admin: 03/26/22 09:11 Dose: 100 mg Duloxetine HCl (Duloxetine Hcl 60 Mg Capsule.Dr) 120 mg PO DAILY [facility] Last Admin: 03/26/22 09:11 Dose: 120 mg Gabapentin (Gabapentin 300 Mg Capsule) 600 mg PO TID [facility] Last Admin: 03/26/22 09:10 Dose: 600 mg Hydroxyzine HCl (Hydroxyzine Hcl 25 Mg Tablet) 25 mg PO Q6H PRN PRN Reason: Anxiety Last Admin: 03/25/22 07:10 Dose: 25 mg Ibuprofen (Ibuprofen 800 Mg Tablet) 800 mg PO TID [facility] Last Admin: 03/26/22 09:11 Dose: 800 mg Lidocaine (Lidocaine 4 % Patch Adh..Patch) 1 patch TRANSDERMA DAILY PRN; Protocol PRN Reason: low back pain Last Admin: 03/25/22 22:14 Dose: 1 patch Lorazepam (Lorazepam 1 Mg Tablet) 1 mg PO Q4H PRN PRN Reason: agitation. give w/thorazine 50 Last Admin: 03/26/22 12:32 Dose: 1 mg Magnesium Hydroxide (Milk Of Magnesia 30 Ml Oral.Susp) 30 ml PO DAILY PRN PRN Reason: Constipation Nicotine Polacrilex (Nicotine Polacrilex 2 Mg Gum) 2 mg BUCCAL Q1H PRN PRN Reason: Nicotine Cravings Nicotine Polacrilex (Nicotine Polacrilex Lozenge 2 Mg Lozenge) 2 mg BUCCAL Q1H PRN PRN Reason: Nicotine Cravings Olanzapine (Olanzapine 10 Mg Vial) 10 mg IM BID PRN PRN Reason: refusal of trilafostanislav bee Last Admin: 03/23/22 21:48 Dose: 10 mg Oxycodone HCl (Oxycodone Hcl Immed Release 5 Mg Tablet) 5 mg PO Q12H PRN PRN Reason: Pain, Moderate (Pain Scale 4-6 Last Admin: 03/26/22 10:19 Dose: 5 mg Perphenazine (Perphenazine 8 Mg Tablet) 16 mg PO BID [facility] Last Admin: 03/26/22 09:11 Dose: 16 mg Saliva Substitute (Dry Mouth [place] 60 Ml [place]) 1 spray MUCOUS MEM Q2H PRN PRN Reason: xerostomia Senna (Sennosides 8.6 Mg Tablet) 17.2 mg PO DAILY [facility] Last Admin: 03/26/22 10:18 Dose: 17.2 mg Tamsulosin HCl (Tamsulosin Hcl 0.4 Mg Capsule) 0.4 mg PO BEDTIME [facility] Last Admin: 03/25/22 20:18 Dose: 0.4 mg Trazodone HCl (Trazodone Hcl 50 Mg Tablet) 50 mg PO BEDTIME [facility] Last Admin: 03/25/22 20:18 Dose: 50 mg Trazodone HCl (Trazodone Hcl 50 Mg Tablet) 50 mg PO BEDTIME PRN PRN Reason: Insomnia Last Admin: 03/25/22 23:12 Dose: 50 mg Triamcinolone Acetonide (Triamcinolone Acet 0.025 % Cream 15 Gm Tube) 1 appl TOPICAL BID [facility]; Protocol Last Admin: 03/26/22 10:43 Dose: 1 appl Allergies Allergies Allergy/AdvReac Type Severity Reaction Status Date / Time haloperidol [From HALDOL] Allergy Intermediate UNKNOWN Verified 03/16/22 14:25 Assessment & Plan Assessment & Plan (1) Sandrita: Status: Acute Code(s): F30.9 - Manic episode, unspecified (2) Myelitis: Status: Acute Code(s): G04.91 - Myelitis, unspecified Assessment and Plan: Nerves been considerable improvement in his neurological deficits which goes along with her diagnosis of myelitis of his cervical cord at to see 2 level.? There is no need for further steroids at this point.? I expect she will continue to improve.? A followup MRI of the cervical cord should be done in 2 months with and without gadolinium.? I would check him for AIDS.? Nothing further needs to be done neurologically. Plan Plan 03/22: continue outpt meds for now.? t/c ranitidine for GERD, incr in gabapentin for pain, trazodone for sleep.? educate re evidence-based mood stabilizers and attempt to get pt to take one of the three. 03/23: agrees to trial of tegretol in place of trileptal.? trileptal DCed and tegretol started at 600 BID.? perphenazine increased to 16 BID and IM back-ups prescribed.? requesting neuro consult to see if any post-lesion syndrome may account for c/o cramps/pain and if there is anything that may be done to help.? thorazine and ativan PRNs prescribed. 03/24: per neuro consult, no need for further neuro w/u or intervention, pt recovering well from myelitis.? check HIV1&2.? steroid cream for rash, artificial saliva/lozenges Rxed.? encouraged to take tegretol, which he had said he would do yesterday but which he has not done (aside from 200 mg). 03/25: rash Dx as scabies, treated yesterday. took tegretol 600 this morning and reports improved mood today. encouraged compliance. 03/26: compliant with tegretol past 24H. appears a bit sedated today; will decrease PRNs. crural complaints, referred to hospitalist. I spent ___25___ minutes with the patient and/or on the patient floor today, greater than?50% of which was spent counseling/coordinating care. Reason for contiued inpatient stay Substantial Risk for: inability to function and rapid decompensation
--- NOTE | 2022-03-26 15:22 | PC.NURSE ---
Late entry: Patient increasingly disorganized, sedated. Placed on 1:1 at this time for fall risk. MD notified, retail route supervisor aware.
[2022-03-26] MEDS: traZODone HCL 50 MG TABLET PO (23:25)
[2022-03-26] MEDS: Tamsulosin HCL 0.4 MG CAPSULE PO (23:25)
[2022-03-27] MEDS: Throat Lozenge, Medicated LOZENGE 1 LOZENGE MUCOUS MEM (06:10)
[2022-03-27 07:49] LABS: HIV AB/AG Nonreactive (Nonreactive); HIV Num 1 0.27 S/CO (0.00-0.99)
[2022-03-27 08:27] LABS: Appearance Urine HAZY; Color Urine YELLOW; Glucose Urine UA NEG (NEG); Leukocyte Esterase Urine 3+ (NEG); Nitrite Urine POS (NEG); Specific Gravity - Urine 1.015 (1.005-1.025); UACC Culture Trigger YES; Urine Blood 2+ (NEG); Urine Ketones NEG (NEG); Urine Protein NEG (NEG-TRACE)
[2022-03-27 08:30] VITALS: BP 145/92; PULSE 94; RESP 17; TEMP 36.7; O2SAT 96
[2022-03-27] MEDS: Gabapentin 300 MG CAPSULE 600 MG PO ×3 (08:36→21:41)
[2022-03-27] MEDS: Perphenazine 8 MG TABLET 16 MG PO ×2 (08:37→21:42)
[2022-03-27] MEDS: carBAMazepine ER 200 MG TAB.ER.12H 600 MG PO ×2 (08:38→21:42)
[2022-03-27 08:39] LABS: Bacteria Urine 4+ /LPF; WBC Urine TNTC /HPF (0-4)
[2022-03-27] MEDS: Baclofen 10 MG TABLET PO ×3 (08:39→21:42)
[2022-03-27] MEDS: Benztropine Mesylate 1 MG TABLET PO ×3 (08:39→21:44)
[2022-03-27 08:40] LABS: RBC Urine 0-2 /HPF (0); WBC Clumps Urine NOTED
[2022-03-27] MEDS: DULoxetine HCl 60 MG CAPSULE.DR 120 MG PO (08:40)
[2022-03-27] MEDS: Ibuprofen 800 MG TABLET PO ×3 (08:40→21:43)
[2022-03-27] MEDS: Docusate Sodium 100 MG CAPSULE PO ×2 (08:41→21:41)
[2022-03-27] MEDS: Sennosides 8.6 MG TABLET 17.2 MG PO (08:41)
[2022-03-27] MEDS: Clotrimazole 1 % Cream 15 GM TUBE 1 APPL TOPICAL (09:05)
[2022-03-27] MEDS: Dry Mouth Spray 60 ML SPRAY 1 SPRAY MUCOUS MEM (10:41)
--- NOTE | 2022-03-27 12:52 | W.PM.IDCN ---
History of Present Illness Data of Consult Service Date: 03/27/22 Requesting physician: Shailesh Quiñones Primary Care Provider: John Paul Rosenthal MD HPI Reason for consult: rash He presents to hospital with psychosis and hospitalized. It was noticed he had vesiculopapular rash all over back chest and trunk and upper extremities including hands He has no fever or chills He has had psoriasis in past he says on scalp. Review of Systems Review of Systems: Yes all other systems are reviewed and are negative PMFSH Past Medical History Medical History (Updated 03/27/22 @ 13:02 by Flores Villalpando MD) Psychosis Rash Right hemiparesis Schizophrenia Spinal cord lesion Substance abuse Family History Family History Father Medical history unknown Mother Medical history unknown Family history: reviewed and not pertinent Surgical History Surgical History History of liver biopsy Social History Social History Household Members: Other Household Members Other:: Care Home Housing: Other Housing Other:: Care Home Do you presently have visiting nurse or other home services: No Unable to assess alcohol history related to: Refusing to respond Alcohol intake: former Patient Tobacco Use Status: Current everyday Tobacco user Tobacco use type: Cigarette Cigarette Packs Per Day: 1 Cigarettes Per Day: 20.0 Smoked in Last 30 Days: Yes e-Cigarette/Vaping Use: Former Use Patient Interested in Nicotine Replacement: Yes (wants gum and lozenge) Patient Given Instructions on How to Stop Smoking: No (not interested) Second Hand Smoke Exposure: Yes Use of substances other than those prescribed or required for medical reasons: Yes Substance Use Type: Crack/Cocaine, Heroin and Marijuana Substance Use Frequency: Occasionally Last Used Substance: Unknown Last Used Substance Other:: Utox positive for marijuana only Currently Displaying Signs/Symptoms of Drug Intoxication Withdrawal: No Any prior treatment program specific to substance use: No Do you feel safe in your current relationship?: No Current Relationship Is there a partner from a previous relationship who is making you feel unsafe now?: No Are you made to feel afraid or neglected: No Spiritual Healthcare Practices: none Hindu Healthcare Practices: none Cultural Healthcare Practices: none Advance Directives: No Advance Directives Information Provided: No Advance Directives on File: No Do you have thoughts of harming others: None Do you have a plan to hurt others: No Plan Recently lost weight without trying: No Eating poorly because of decreased appetite: No Nutrition Risks: No Nutritional Risk Poor oral hygiene: No service: No Current occupational status: disabled Sexual orientation: Did not discuss. Cognitive needs: No Hearing needs: No Vision needs: No Meds Allergies Allergy/AdvReac Type Severity Reaction Status Date / Time haloperidol [From HALDOL] Allergy Intermediate UNKNOWN Verified 03/16/22 14:25 Active Medications: Current Medications Acetaminophen (Acetaminophen 325 Mg Tablet) 650 mg PO Q6H PRN PRN Reason: Headache/Pain Mild Scale (1-3) Last Admin: 03/25/22 23:11 Dose: 650 mg Al Hydroxide/Mg Hydroxide (Magnesium Hydrox/Alum Hydrox 30 Ml Oral.Susp) 30 ml PO Q6H PRN PRN Reason: Heartburn/Nausea Last Admin: 03/25/22 17:22 Dose: 30 ml Baclofen (Baclofen 10 Mg Tablet) 10 mg PO TID [facility] Last Admin: 03/27/22 08:39 Dose: 10 mg Benzocaine (Throat Lozenge, Medicated Lozenge) 1 lozenge MUCOUS MEM Q1H PRN PRN Reason: xerostomia Last Admin: 03/27/22 06:10 Dose: 1 lozenge Benztropine Mesylate (Benztropine Mesylate 1 Mg Tablet) 1 mg PO TID [facility] Last Admin: 03/27/22 08:39 Dose: 1 mg Calcium Carbonate (Calcium Carbonate 750 Mg Tab.Chew) 750 mg PO Q4H PRN PRN Reason: Dyspepsia Carbamazepine (Carbamazepine Er 200 Mg Tab.Er.12h) 600 mg PO BID [facility] Last Admin: 03/27/22 08:38 Dose: 600 mg Chlorpromazine HCl (Chlorpromazine Hcl 25 Mg Tablet) 25 mg PO Q4H PRN PRN Reason: agitation. w/ativan 0.5 mg Clotrimazole (Clotrimazole 1 % Cream 15 Gm Tube) 1 appl TOPICAL BID [facility]; Protocol Last Admin: 03/27/22 09:05 Dose: 1 appl Docusate Sodium (Docusate Sodium 100 Mg Capsule) 100 mg PO BID [facility] Last Admin: 03/27/22 08:41 Dose: 100 mg Duloxetine HCl (Duloxetine Hcl 60 Mg Capsule.Dr) 120 mg PO DAILY [facility] Last Admin: 03/27/22 08:40 Dose: 120 mg Gabapentin (Gabapentin 300 Mg Capsule) 600 mg PO TID [facility] Last Admin: 03/27/22 08:36 Dose: 600 mg Hydroxyzine HCl (Hydroxyzine Hcl 25 Mg Tablet) 25 mg PO Q6H PRN PRN Reason: Anxiety Last Admin: 03/25/22 07:10 Dose: 25 mg Ibuprofen (Ibuprofen 800 Mg Tablet) 800 mg PO TID [facility] Last Admin: 03/27/22 08:40 Dose: 800 mg Lidocaine (Lidocaine 4 % Patch Adh..Patch) 2 patch TRANSDERMA DAILY PRN; Protocol PRN Reason: low back pain Lorazepam (Lorazepam 0.5 Mg Tablet) 0.5 mg PO Q4H PRN PRN Reason: agitation. give w/thorazine 25 Magnesium Hydroxide (Milk Of Magnesia 30 Ml Oral.Susp) 30 ml PO DAILY PRN PRN Reason: Constipation Multi-Ingred Medicated Throat [place] (Throat [place], Medicated 20 Ml Bottle) 1 spray MUCOUS MEM Q2H PRN PRN Reason: Sore Throat Last Admin: 03/27/22 10:41 Dose: 1 spray Nicotine Polacrilex (Nicotine Polacrilex 2 Mg Gum) 2 mg BUCCAL Q1H PRN PRN Reason: Nicotine Cravings Nicotine Polacrilex (Nicotine Polacrilex Lozenge 2 Mg Lozenge) 2 mg BUCCAL Q1H PRN PRN Reason: Nicotine Cravings Olanzapine (Olanzapine 10 Mg Vial) 10 mg IM BID PRN PRN Reason: refusal of stanislav jung Last Admin: 03/23/22 21:48 Dose: 10 mg Oxycodone HCl (Oxycodone Hcl Immed Release 5 Mg Tablet) 5 mg PO Q12H PRN PRN Reason: Pain, Moderate (Pain Scale 4-6 Last Admin: 03/26/22 23:23 Dose: 5 mg Perphenazine (Perphenazine 8 Mg Tablet) 16 mg PO BID [facility] Last Admin: 03/27/22 08:37 Dose: 16 mg Saliva Substitute (Dry Mouth [place] 60 Ml [place]) 1 spray MUCOUS MEM Q2H PRN PRN Reason: xerostomia Last Admin: 03/27/22 10:41 Dose: 1 spray Senna (Sennosides 8.6 Mg Tablet) 17.2 mg PO DAILY [facility] Last Admin: 03/27/22 08:41 Dose: 17.2 mg Tamsulosin HCl (Tamsulosin Hcl 0.4 Mg Capsule) 0.4 mg PO BEDTIME [facility] Last Admin: 03/26/22 23:25 Dose: 0.4 mg Trazodone HCl (Trazodone Hcl 50 Mg Tablet) 50 mg PO BEDTIME [facility] Last Admin: 03/26/22 23:25 Dose: 50 mg Trazodone HCl (Trazodone Hcl 50 Mg Tablet) 50 mg PO BEDTIME PRN PRN Reason: Insomnia Last Admin: 03/25/22 23:12 Dose: 50 mg Triamcinolone Acetonide (Triamcinolone Acet 0.025 % Cream 15 Gm Tube) 1 appl TOPICAL BID [facility]; Protocol Last Admin: 03/27/22 09:58 Dose: Not Given Home Medications Medication Instructions Recorded Confirmed Last Taken Type acetaminophen 325 mg tablet 2 tab PO Q6H PRN Pain 03/20/22 03/20/22 Unknown History benztropine 1 mg tablet 1 tab PO TID 03/20/22 03/20/22 Unknown History docusate sodium 100 mg capsule 1 cap PO BID 03/20/22 03/20/22 Unknown History duloxetine 60 mg capsule,delayed 2 cap PO DAILY 03/20/22 03/20/22 Unknown History release gabapentin 300 mg capsule 2 cap PO TID 03/20/22 03/20/22 Unknown History ibuprofen 800 mg tablet 1 tab PO TID 03/20/22 03/20/22 Unknown History oxcarbazepine 600 mg tablet 1 tab PO BID 03/20/22 03/20/22 Unknown History oxycodone 5 mg tablet 1 tab PO Q12H PRN pain 03/20/22 03/20/22 Unknown History perphenazine 2 mg tablet 3 tab PO BID 03/20/22 03/20/22 Unknown History perphenazine 8 mg tablet 1 tab PO BID 03/20/22 03/20/22 Unknown History sennosides 8.6 mg tablet (senna) 2 tab PO DAILY 03/20/22 03/20/22 Unknown History tamsulosin 0.4 mg capsule 1 cap PO BEDTIME 03/20/22 03/20/22 Unknown History trazodone 50 mg tablet 1 tab PO BEDTIME 03/20/22 03/20/22 Unknown History Physical Exam Vital Signs: Vital Signs: Last Vital Signs Temp 98.1 F 03/27/22 08:30 Pulse 94 03/27/22 08:30 Resp 17 03/27/22 08:30 BP 145/92 H 03/27/22 08:30 Pulse Ox 96 03/27/22 08:30 O2 Del Method 03/27/22 08:30 BMI result Body Mass Index 29.1 Const: General: cooperative HEENT: Head: Yes normal to inspection Face and sinus: Yes normal facial exam Mouth: Normal oral and palatal mucosa present Teeth and gingiva: dentition normal Eyes: General: appearance normal, both eyes and all related structures Pupils: Equal, round and reactive pupils present Resp: Effort & Inspection: normal respiratory effort Cardio: Rate: regular rate Rhythm: regular rhythm GI: Palpation (GI): Soft to palpation and nontender : General: Yes no CVA tenderness Back/Spine/Pelvis: Back: no CVA tenderness Skin: Other: vesiculopapular lesions chest back and bilateral arms Neuro: General: moves all extremities Cranial nerves: Yes Equal, round and reactive pupils present Extrem: General: Yes normal to inspection Psych: Appearance: grossly normal Results Labs CBC & Chem 7: 03/20/22 17:58 03/22/22 08:58 Labs: Urine 03/27/22 Range/Units 07:58 Urine Color YELLOW Urine Appearance HAZY Urine pH 7.0 (5.0-8.0) Ur Specific [place] 1.015 (1.005-1.025) Urine Protein NEG (NEG-TRACE) MG/DL Urine Glucose (UA) NEG (NEG) MG/DL Assessment and Plan (1) Rash: Status: Acute He has rash as documented for weeks or more He has possibly viral syndrome,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 He did receive Permethrin Consider skin biopsy if not improved (doesnt look like monkeypox)
[2022-03-27 13:50] LABS: CT PCR NOT DETECTED (Not Detect.); NG PCR NOT DETECTED (Not Detect.)
[2022-03-27] MEDS: LORazepam 0.5 MG TABLET PO ×2 (16:56→21:57)
[2022-03-27 18:00] VITALS: BP 147/97; PULSE 96; RESP 17; TEMP 36.5; O2SAT 96
[2022-03-27] MEDS: Tamsulosin HCL 0.4 MG CAPSULE PO (21:43)
[2022-03-27] MEDS: traZODone HCL 50 MG TABLET PO (21:44)
[2022-03-27] MEDS: chlorproMAZINE HCl 25 MG TABLET PO (21:57)
[2022-03-28 06:00] VITALS: BP 161/90; PULSE 84; RESP 20; TEMP 36.4; O2SAT 98
[2022-03-28] MEDS: Ibuprofen 800 MG TABLET PO ×3 (06:00→22:15)
--- NOTE | 2022-03-28 06:05 | PC.NURSE ---
Patient was complaining of generalized pain 5-6/10 in his back and left shoulder. Patient requested Ibuprofen early today. Patient given 0900 scheduled 800mg dose at 0600.
[2022-03-28] MEDS: Perphenazine 8 MG TABLET 16 MG PO ×2 (08:07→22:14)
[2022-03-28] MEDS: Sennosides 8.6 MG TABLET 17.2 MG PO (08:08)
[2022-03-28] MEDS: Baclofen 10 MG TABLET PO (08:08)
[2022-03-28] MEDS: Docusate Sodium 100 MG CAPSULE PO ×2 (08:09→22:16)
[2022-03-28] MEDS: Benztropine Mesylate 1 MG TABLET PO ×3 (08:10→22:16)
[2022-03-28] MEDS: Gabapentin 300 MG CAPSULE 600 MG PO ×3 (08:10→22:15)
[2022-03-28] MEDS: DULoxetine HCl 60 MG CAPSULE.DR 120 MG PO (08:10)
[2022-03-28] MEDS: carBAMazepine ER 200 MG TAB.ER.12H 600 MG PO ×2 (08:11→22:14)
[2022-03-28] MEDS: Clotrimazole 1 % Cream 15 GM TUBE 1 APPL TOPICAL ×2 (08:15→22:16)
[2022-03-28] MEDS: Triamcinolone Acet 0.025 % Cream 15 GM TUBE 1 APPL TOPICAL ×2 (08:17→22:17)
[2022-03-28] MEDS: oxyCODONE HCl Immed Release 5 MG TABLET PO (11:10)
--- NOTE | 2022-03-28 11:55 | HO.PSYCHPN ---
Subjective Subjective Date of Service: 03/28/22 Reason For Visit: Psychosis Interim History: pt found sleeping on bench in sensory room. rousable to voice, unsteady on his feet. no complaints or requests. ambulated with assistance back to his room to sleep on his bed. per staff, confused, disorganized, incontinent of urine. ID has ordered keflex for UTI. this insurance writer has DCed hydroxyzine, baclofen, ativan, and trazodone to simplify meds regimen and stop medications which might cause sedation or delirium. Mental Status Exam Mental Status Exam Narrative: cooperative, calm. no PMA/PMR. speech nml in rate, decr in amount, somewhat dysarthric. flattened tone, incr latency, decr loudness. thoughts tangential. affect calm and hypo-intense. mood unable to be assessed, no SI/HI/AVH expressed. Diagnostics Vital Signs (24Hr): Vital Signs - 24 hr 03/27/22 18:00 03/28/22 06:00 Temperature 97.7 F 97.6 F Pulse Rate 96 84 Respiratory Rate 17 20 Blood Pressure 147/97 H 161/90 H Pulse Oximetry 96 98 Oxygen Delivery Method Room Air Room Air BMI result Body Mass Index 29.1 Labs Results: 03/20/22 17:58 03/22/22 08:58 Labs: Laboratory Results - last 48 hr 03/24/22 03/27/22 03/27/22 18:20 07:58 11:52 Urine Color YELLOW Urine Appearance HAZY Urine pH 7.0 Ur Specific [place] 1.015 Urine Protein NEG Urine Glucose (UA) NEG Urine Ketones NEG Urine Blood 2+ H Urine Nitrite POS H Ur Leukocyte Esterase 3+ H Urine RBC 0-2 Urine WBC TNTC H Urine WBC Clumps NOTED Ur Squamous Epith Cells NONE Urine Bacteria 4+ Chlam trachomat DNA PCR NOT DETECTED HIV 1&2 Ab/P24 Ag 4thGn Nonreactive N.gonorrhoeae DNA (PCR) NOT DETECTED Imaging Radiology Impressions: ITS Impressions Head CT 03/20/22 23:40 IMPRESSION: No acute intracranial pathology. Medications Medications Current Medications Acetaminophen (Acetaminophen 325 Mg Tablet) 650 mg PO Q6H PRN PRN Reason: Headache/Pain Mild Scale (1-3) Last Admin: 03/25/22 23:11 Dose: 650 mg Al Hydroxide/Mg Hydroxide (Magnesium Hydrox/Alum Hydrox 30 Ml Oral.Susp) 30 ml PO Q6H PRN PRN Reason: Heartburn/Nausea Last Admin: 03/25/22 17:22 Dose: 30 ml Benzocaine (Throat Lozenge, Medicated Lozenge) 1 lozenge MUCOUS MEM Q1H PRN PRN Reason: xerostomia Last Admin: 03/27/22 06:10 Dose: 1 lozenge Benztropine Mesylate (Benztropine Mesylate 1 Mg Tablet) 1 mg PO TID [facility] Last Admin: 03/28/22 08:10 Dose: 1 mg Calcium Carbonate (Calcium Carbonate 750 Mg Tab.Chew) 750 mg PO Q4H PRN PRN Reason: Dyspepsia Carbamazepine (Carbamazepine Er 200 Mg Tab.Er.12h) 600 mg PO BID [facility] Last Admin: 03/28/22 08:11 Dose: 600 mg Cephalexin HCl (Cephalexin 500 Mg Capsule) 500 mg PO Q6H [facility]ANDA Chlorpromazine HCl (Chlorpromazine Hcl 25 Mg Tablet) 25 mg PO Q4H PRN PRN Reason: agitation. w/ativan 0.5 mg Last Admin: 03/27/22 21:57 Dose: 25 mg Clotrimazole (Clotrimazole 1 % Cream 15 Gm Tube) 1 appl TOPICAL BID [facility]; Protocol Last Admin: 03/28/22 08:15 Dose: 1 appl Docusate Sodium (Docusate Sodium 100 Mg Capsule) 100 mg PO BID [facility] Last Admin: 03/28/22 08:09 Dose: 100 mg Duloxetine HCl (Duloxetine Hcl 60 Mg Capsule.Dr) 120 mg PO DAILY [facility] Last Admin: 03/28/22 08:10 Dose: 120 mg Gabapentin (Gabapentin 300 Mg Capsule) 600 mg PO TID [facility] Last Admin: 03/28/22 08:10 Dose: 600 mg Ibuprofen (Ibuprofen 800 Mg Tablet) 800 mg PO TID [facility] Last Admin: 03/28/22 06:00 Dose: 800 mg Lidocaine (Lidocaine 4 % Patch Adh..Patch) 2 patch TRANSDERMA DAILY PRN; Protocol PRN Reason: low back pain Magnesium Hydroxide (Milk Of Magnesia 30 Ml Oral.Susp) 30 ml PO DAILY PRN PRN Reason: Constipation Multi-Ingred Medicated Throat [place] (Throat [place], Medicated 20 Ml Bottle) 1 spray MUCOUS MEM Q2H PRN PRN Reason: Sore Throat Last Admin: 03/28/22 11:16 Dose: 1 spray Nicotine Polacrilex (Nicotine Polacrilex 2 Mg Gum) 2 mg BUCCAL Q1H PRN PRN Reason: Nicotine Cravings Nicotine Polacrilex (Nicotine Polacrilex Lozenge 2 Mg Lozenge) 2 mg BUCCAL Q1H PRN PRN Reason: Nicotine Cravings Olanzapine (Olanzapine 10 Mg Vial) 10 mg IM BID PRN PRN Reason: refusal of stanislav jung Last Admin: 03/23/22 21:48 Dose: 10 mg Oxycodone HCl (Oxycodone Hcl Immed Release 5 Mg Tablet) 5 mg PO Q12H PRN PRN Reason: Pain, Moderate (Pain Scale 4-6 Last Admin: 03/28/22 11:10 Dose: 5 mg Perphenazine (Perphenazine 8 Mg Tablet) 16 mg PO BID [facility] Last Admin: 03/28/22 08:07 Dose: 16 mg Saliva Substitute (Dry Mouth [place] 60 Ml [place]) 1 spray MUCOUS MEM Q2H PRN PRN Reason: xerostomia Last Admin: 03/27/22 10:41 Dose: 1 spray Senna (Sennosides 8.6 Mg Tablet) 17.2 mg PO DAILY [facility] Last Admin: 03/28/22 08:08 Dose: 17.2 mg Tamsulosin HCl (Tamsulosin Hcl 0.4 Mg Capsule) 0.4 mg PO BEDTIME [facility] Last Admin: 03/27/22 21:43 Dose: 0.4 mg Trazodone HCl (Trazodone Hcl 50 Mg Tablet) 50 mg PO BEDTIME PRN PRN Reason: Insomnia Last Admin: 03/25/22 23:12 Dose: 50 mg Triamcinolone Acetonide (Triamcinolone Acet 0.025 % Cream 15 Gm Tube) 1 appl TOPICAL BID [facility]; Protocol Last Admin: 03/28/22 08:17 Dose: 1 appl Allergies Allergies Allergy/AdvReac Type Severity Reaction Status Date / Time haloperidol [From HALDOL] Allergy Intermediate UNKNOWN Verified 03/16/22 14:25 Assessment & Plan Assessment & Plan (1) Rash: Status: Acute Code(s): R21 - Rash and other nonspecific skin eruption Assessment and Plan: He has rash as documented for weeks or more He has possibly viral syndrome,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 He did receive Permethrin Consider skin biopsy if not improved (doesnt look like monkeypox) (2) Sandrita: Status: Acute Code(s): F30.9 - Manic episode, unspecified Plan 03/22: continue outpt meds for now.? t/c ranitidine for GERD, incr in gabapentin for pain, trazodone for sleep.? educate re evidence-based mood stabilizers and attempt to get pt to take one of the three. 03/23: agrees to trial of tegretol in place of trileptal.? trileptal DCed and tegretol started at 600 BID.? perphenazine increased to 16 BID and IM back-ups prescribed.? requesting neuro consult to see if any post-lesion syndrome may account for c/o cramps/pain and if there is anything that may be done to help.? thorazine and ativan PRNs prescribed. 03/24: per neuro consult, no need for further neuro w/u or intervention, pt recovering well from myelitis.? check HIV1&2.? steroid cream for rash, artificial saliva/lozenges Rxed.? encouraged to take tegretol, which he had said he would do yesterday but which he has not done (aside from 200 mg). 03/25: rash Dx as scabies, treated yesterday.? took tegretol 600 this morning and reports improved mood today.? encouraged compliance. 03/26: compliant with tegretol past 24H.? appears a bit sedated today; will decrease PRNs.? crural complaints, referred to hospitalist. 03/28: sedated. decreasing medications which may cause delirium or sedation. ativan, baclofen, trazodone, hydroxyzine DCed. started keflex for UTI. otherwise previous plan continued. clearly unsteady on his feet, either sedated or getting delirious. I spent __25___ minutes with the patient and/or on the patient floor today, greater than?50% of which was spent counseling/coordinating care. Reason for contiued inpatient stay Substantial Risk for: inability to function and rapid decompensation
[2022-03-28] MEDS: cephALEXin 500 MG CAPSULE PO ×2 (12:56→16:53)
[2022-03-28] MEDS: Dry Mouth Spray 60 ML SPRAY 1 SPRAY MUCOUS MEM ×2 (16:57→22:16)
[2022-03-28 22:00] VITALS: BP 129/79; PULSE 89; TEMP 36.7; O2SAT 100
[2022-03-28] MEDS: Tamsulosin HCL 0.4 MG CAPSULE PO (22:15)
[2022-03-29] MEDS: cephALEXin 500 MG CAPSULE PO ×5 (00:41→22:24)
[2022-03-29] MEDS: traZODone HCL 50 MG TABLET PO (01:38)
[2022-03-29] MEDS: Ibuprofen 800 MG TABLET PO ×3 (08:39→22:24)
[2022-03-29] MEDS: DULoxetine HCl 60 MG CAPSULE.DR 120 MG PO (08:39)
[2022-03-29] MEDS: Gabapentin 300 MG CAPSULE 600 MG PO ×3 (08:39→22:24)
[2022-03-29] MEDS: Docusate Sodium 100 MG CAPSULE PO ×2 (08:39→22:24)
[2022-03-29] MEDS: carBAMazepine ER 200 MG TAB.ER.12H 600 MG PO ×2 (08:39→22:23)
[2022-03-29] MEDS: Sennosides 8.6 MG TABLET 17.2 MG PO (08:39)
[2022-03-29] MEDS: Perphenazine 8 MG TABLET 16 MG PO ×2 (08:39→22:23)
[2022-03-29] MEDS: Benztropine Mesylate 1 MG TABLET PO ×3 (08:39→22:24)
[2022-03-29 09:22] VITALS: BP 135/82; PULSE 95; RESP 17; TEMP 36.8; O2SAT 99
[2022-03-29] MEDS: Milk of Magnesia 30 ML ORAL.SUSP PO (12:44)
[2022-03-29] MEDS: Clotrimazole 1 % Cream 15 GM TUBE 1 APPL TOPICAL ×2 (14:06→22:35)
[2022-03-29] MEDS: Triamcinolone Acet 0.025 % Cream 15 GM TUBE 1 APPL TOPICAL ×2 (14:06→22:35)
[2022-03-29] MEDS: Calcium Carbonate 750 MG TAB.CHEW PO (15:07)
[2022-03-29 18:00] VITALS: BP 158/92; PULSE 80; RESP 16; TEMP 36.8; O2SAT 97
[2022-03-29] MEDS: chlorproMAZINE HCl 25 MG TABLET PO (21:02)
--- NOTE | 2022-03-29 21:35 | HO.PSYCHPN ---
Subjective Subjective Date of Service: 03/29/22 Reason For Visit: Psychosis Interim History: Pt was somewhat expnsive not overly depressed some disinhibition poor concentration not aggressive some gait difficulty but improving no falls . Medication Compliance: Yes Side effects from medications: Yes Attending Groups: No Mental Status Exam Mental Status Exam Patient Appearance: Fatigued Patient Orientation: Person Level of Consciousness: Awake and Follows Commands Patient Behavior: Restless and Pacing Mood Description: Relaxed and Cheerful Affect Description: Labile and Blunted Ability to Follow Directions: Fair Speech Pattern: Rambling Memory Description: Episodic Impaired and Working Impaired Thought Process: Distracted Depressive Symptoms: Increased Anxiety Diagnostics Vital Signs (24Hr): Vital Signs - 24 hr 03/28/22 22:00 03/29/22 09:22 Temperature 98.1 F 98.3 F Pulse Rate 89 95 Respiratory Rate 17 Blood Pressure 129/79 135/82 Pulse Oximetry 100 99 Oxygen Delivery Method Room Air Room Air BMI result Body Mass Index 29.1 Labs Results: 03/20/22 17:58 03/22/22 08:58 Imaging Radiology Impressions: ITS Impressions Head CT 03/20/22 23:40 IMPRESSION: No acute intracranial pathology. Medications Medications Current Medications Acetaminophen (Acetaminophen 325 Mg Tablet) 650 mg PO Q6H PRN PRN Reason: Headache/Pain Mild Scale (1-3) Last Admin: 03/25/22 23:11 Dose: 650 mg Al Hydroxide/Mg Hydroxide (Magnesium Hydrox/Alum Hydrox 30 Ml Oral.Susp) 30 ml PO Q6H PRN PRN Reason: Heartburn/Nausea Last Admin: 03/25/22 17:22 Dose: 30 ml Benzocaine (Throat Lozenge, Medicated Lozenge) 1 lozenge MUCOUS MEM Q1H PRN PRN Reason: xerostomia Last Admin: 03/27/22 06:10 Dose: 1 lozenge Benztropine Mesylate (Benztropine Mesylate 1 Mg Tablet) 1 mg PO TID [facility] Last Admin: 03/29/22 15:07 Dose: 1 mg Calcium Carbonate (Calcium Carbonate 750 Mg Tab.Chew) 750 mg PO Q4H PRN PRN Reason: Dyspepsia Last Admin: 03/29/22 15:07 Dose: 750 mg Carbamazepine (Carbamazepine Er 200 Mg Tab.Er.12h) 600 mg PO BID [facility] Last Admin: 03/29/22 08:39 Dose: 600 mg Cephalexin HCl (Cephalexin 500 Mg Capsule) 500 mg PO Q6H [facility] Last Admin: 03/29/22 18:18 Dose: 500 mg Chlorpromazine HCl (Chlorpromazine Hcl 25 Mg Tablet) 25 mg PO Q4H PRN PRN Reason: agitation. w/ativan 0.5 mg Last Admin: 03/29/22 21:02 Dose: 25 mg Clotrimazole (Clotrimazole 1 % Cream 15 Gm Tube) 1 appl TOPICAL BID [facility]; Protocol Last Admin: 03/29/22 14:06 Dose: 1 appl Docusate Sodium (Docusate Sodium 100 Mg Capsule) 100 mg PO BID [facility] Last Admin: 03/29/22 08:39 Dose: 100 mg Duloxetine HCl (Duloxetine Hcl 60 Mg Capsule.Dr) 120 mg PO DAILY [facility] Last Admin: 03/29/22 08:39 Dose: 120 mg Gabapentin (Gabapentin 300 Mg Capsule) 600 mg PO TID [facility] Last Admin: 03/29/22 15:06 Dose: 600 mg Ibuprofen (Ibuprofen 800 Mg Tablet) 800 mg PO TID [facility] Last Admin: 03/29/22 15:07 Dose: 800 mg Lidocaine (Lidocaine 4 % Patch Adh..Patch) 2 patch TRANSDERMA DAILY PRN; Protocol PRN Reason: low back pain Magnesium Hydroxide (Milk Of Magnesia 30 Ml Oral.Susp) 30 ml PO DAILY PRN PRN Reason: Constipation Last Admin: 03/29/22 12:44 Dose: 30 ml Multi-Ingred Medicated Throat [place] (Throat [place], Medicated 20 Ml Bottle) 1 spray MUCOUS MEM Q2H PRN PRN Reason: Sore Throat Last Admin: 03/28/22 11:16 Dose: 1 spray Nicotine Polacrilex (Nicotine Polacrilex 2 Mg Gum) 2 mg BUCCAL Q1H PRN PRN Reason: Nicotine Cravings Nicotine Polacrilex (Nicotine Polacrilex Lozenge 2 Mg Lozenge) 2 mg BUCCAL Q1H PRN PRN Reason: Nicotine Cravings Olanzapine (Olanzapine 10 Mg Vial) 10 mg IM BID PRN PRN Reason: refusal of trilafonstanislav Last Admin: 03/23/22 21:48 Dose: 10 mg Oxycodone HCl (Oxycodone Hcl Immed Release 5 Mg Tablet) 5 mg PO Q12H PRN PRN Reason: Pain, Moderate (Pain Scale 4-6 Last Admin: 03/28/22 11:10 Dose: 5 mg Perphenazine (Perphenazine 8 Mg Tablet) 16 mg PO BID [facility] Last Admin: 03/29/22 08:39 Dose: 16 mg Saliva Substitute (Dry Mouth [place] 60 Ml [place]) 1 spray MUCOUS MEM Q2H PRN PRN Reason: xerostomia Last Admin: 03/28/22 22:16 Dose: 1 spray Senna (Sennosides 8.6 Mg Tablet) 17.2 mg PO DAILY [facility] Last Admin: 03/29/22 08:39 Dose: 17.2 mg Tamsulosin HCl (Tamsulosin Hcl 0.4 Mg Capsule) 0.4 mg PO BEDTIME [facility] Last Admin: 03/28/22 22:15 Dose: 0.4 mg Trazodone HCl (Trazodone Hcl 50 Mg Tablet) 50 mg PO BEDTIME PRN PRN Reason: Insomnia Last Admin: 03/29/22 01:38 Dose: 50 mg Triamcinolone Acetonide (Triamcinolone Acet 0.025 % Cream 15 Gm Tube) 1 appl TOPICAL BID [facility]; Protocol Last Admin: 03/29/22 14:06 Dose: 1 appl Allergies Allergies Allergy/AdvReac Type Severity Reaction Status Date / Time haloperidol [From HALDOL] Allergy Intermediate UNKNOWN Verified 03/16/22 14:25 Assessment & Plan Assessment & Plan (1) Rash: Status: Acute Code(s): R21 - Rash and other nonspecific skin eruption Assessment and Plan: He has rash as documented for weeks or more He has possibly viral syndrome,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 He did receive Permethrin Consider skin biopsy if not improved (doesnt look like monkeypox) (2) Sandrita: Status: Acute Code(s): F30.9 - Manic episode, unspecified Plan 03/22: continue outpt meds for now.? t/c ranitidine for GERD, incr in gabapentin for pain, trazodone for sleep.? educate re evidence-based mood stabilizers and attempt to get pt to take one of the three. 03/23: agrees to trial of tegretol in place of trileptal.? trileptal DCed and tegretol started at 600 BID.? perphenazine increased to 16 BID and IM back-ups prescribed.? requesting neuro consult to see if any post-lesion syndrome may account for c/o cramps/pain and if there is anything that may be done to help.? thorazine and ativan PRNs prescribed. 03/24: per neuro consult, no need for further neuro w/u or intervention, pt recovering well from myelitis.? check HIV1&2.? steroid cream for rash, artificial saliva/lozenges Rxed.? encouraged to take tegretol, which he had said he would do yesterday but which he has not done (aside from 200 mg). 03/25: rash Dx as scabies, treated yesterday.? took tegretol 600 this morning and reports improved mood today.? encouraged compliance. 03/26: compliant with tegretol past 24H.? appears a bit sedated today; will decrease PRNs.? crural complaints, referred to hospitalist. 03/28: sedated. decreasing medications which may cause delirium or sedation. ativan, baclofen, trazodone, hydroxyzine DCed. started keflex for UTI. otherwise previous plan continued. clearly unsteady on his feet, either sedated or getting delirious. 03/29/2022 Patient less sedated alert not aggressive doing better with less sedating medication continue current treatment plan per Dr. Quiñones I spent minutes with the patient and/or on the patient floor today, greater than?50% of which was spent counseling/coordinating care. Reason for contiued inpatient stay Substantial Risk for: inability to function, rapid decompensation and med/psych decompensation
[2022-03-29] MEDS: Tamsulosin HCL 0.4 MG CAPSULE PO (22:23)
[2022-03-30] MEDS: cephALEXin 500 MG CAPSULE PO (06:53)
[2022-03-30 07:00] VITALS: BMI 29.7
[2022-03-30] MEDS: Perphenazine 8 MG TABLET 16 MG PO ×2 (08:46→22:49)
[2022-03-30] MEDS: Benztropine Mesylate 1 MG TABLET PO ×3 (08:46→22:49)
[2022-03-30] MEDS: DULoxetine HCl 60 MG CAPSULE.DR 120 MG PO (08:46)
[2022-03-30] MEDS: carBAMazepine ER 200 MG TAB.ER.12H 600 MG PO (08:46)
[2022-03-30] MEDS: Ibuprofen 800 MG TABLET PO ×3 (08:47→22:49)
[2022-03-30] MEDS: Docusate Sodium 100 MG CAPSULE PO ×2 (08:47→22:49)
[2022-03-30] MEDS: Gabapentin 300 MG CAPSULE 600 MG PO ×3 (08:47→22:49)
[2022-03-30 09:00] VITALS: BP 138/79; PULSE 91; RESP 18; TEMP 36.2; O2SAT 96
[2022-03-30] MEDS: Nitrofurantoin Monohyd/M-Cryst 100 MG CAPSULE PO ×2 (10:48→17:58)
[2022-03-30 11:08] VITALS: BP 138/79; PULSE 91; O2SAT 96
--- NOTE | 2022-03-30 11:14 | PC.NURSE ---
Patient became increasingly unsteady in gait. Alert, oriented x3. Evaluated by PT, recommendation is for 2:1 support while ambulating. Provider, management aware.
[2022-03-30] MEDS: Sennosides 8.6 MG TABLET 17.2 MG PO (12:14)
[2022-03-30] MEDS: Triamcinolone Acet 0.025 % Cream 15 GM TUBE 1 APPL TOPICAL ×2 (12:14→23:06)
[2022-03-30] MEDS: Clotrimazole 1 % Cream 15 GM TUBE 1 APPL TOPICAL ×2 (12:16→23:07)
--- NOTE | 2022-03-30 12:37 | PC.NURSE ---
Late entry: Patient evaluated by MD, on 2:1 at this time until gait is steadier.
--- NOTE | 2022-03-30 12:50 | PM.NEUROCN ---
History of Present Illness Data of Consult Service Date: 03/30/22 Primary Care Provider: John Paul Rosenthal MD HPI Reason for consult: Myelopathy and skin rash 51 years old man whose primary neurological problem is an upper cervical lesion probably inflammatory in nature. He also suffered from significant psychiatric disease and was taking carbamazepine. He has developed a skin rash. As far as his cervical problem was concerned, he has been improving and has been able to get up and walk with assistance. [facility] Past Medical History Medical History Psychosis Rash Right hemiparesis Schizophrenia Spinal cord lesion Substance abuse Family History Family History Father Medical history unknown Mother Medical history unknown Family history: reviewed and not pertinent Surgical History Surgical History History of liver biopsy Social History Social History Household Members: Other Household Members Other:: Retirement Housing: Other Housing Other:: Retirement Do you presently have visiting nurse or other home services: No Unable to assess alcohol history related to: Refusing to respond Alcohol intake: former Patient Tobacco Use Status: Current everyday Tobacco user Tobacco use type: Cigarette Cigarette Packs Per Day: 1 Cigarettes Per Day: 20.0 Smoked in Last 30 Days: Yes e-Cigarette/Vaping Use: Former Use Patient Interested in Nicotine Replacement: Yes (wants gum and lozenge) Patient Given Instructions on How to Stop Smoking: No (not interested) Second Hand Smoke Exposure: Yes Use of substances other than those prescribed or required for medical reasons: Yes Substance Use Type: Crack/Cocaine, Heroin and Marijuana Substance Use Frequency: Occasionally Last Used Substance: Unknown Last Used Substance Other:: Utox positive for marijuana only Currently Displaying Signs/Symptoms of Drug Intoxication Withdrawal: No Any prior treatment program specific to substance use: No Do you feel safe in your current relationship?: No Current Relationship Is there a partner from a previous relationship who is making you feel unsafe now?: No Are you made to feel afraid or neglected: No Spiritual Healthcare Practices: none Jew Healthcare Practices: none Cultural Healthcare Practices: none Advance Directives: No Advance Directives Information Provided: No Advance Directives on File: No Do you have thoughts of harming others: None Do you have a plan to hurt others: No Plan Recently lost weight without trying: No Eating poorly because of decreased appetite: No Nutrition Risks: No Nutritional Risk Poor oral hygiene: No service: No Current occupational status: disabled Sexual orientation: Did not discuss. Cognitive needs: No Hearing needs: No Vision needs: No Meds Allergies Allergy/AdvReac Type Severity Reaction Status Date / Time haloperidol [From HALDOL] Allergy Intermediate UNKNOWN Verified 03/16/22 14:25 Active Medications: Current Medications Acetaminophen (Acetaminophen 325 Mg Tablet) 650 mg PO Q6H PRN PRN Reason: Headache/Pain Mild Scale (1-3) Last Admin: 03/25/22 23:11 Dose: 650 mg Al Hydroxide/Mg Hydroxide (Magnesium Hydrox/Alum Hydrox 30 Ml Oral.Susp) 30 ml PO Q6H PRN PRN Reason: Heartburn/Nausea Last Admin: 03/25/22 17:22 Dose: 30 ml Benzocaine (Throat Lozenge, Medicated Lozenge) 1 lozenge MUCOUS MEM Q1H PRN PRN Reason: xerostomia Last Admin: 03/27/22 06:10 Dose: 1 lozenge Benztropine Mesylate (Benztropine Mesylate 1 Mg Tablet) 1 mg PO TID [facility] Last Admin: 03/30/22 08:46 Dose: 1 mg Calcium Carbonate (Calcium Carbonate 750 Mg Tab.Chew) 750 mg PO Q4H PRN PRN Reason: Dyspepsia Last Admin: 03/29/22 15:07 Dose: 750 mg Carbamazepine (Carbamazepine Er 200 Mg Tab.Er.12h) 400 mg PO BID [facility] Chlorpromazine HCl (Chlorpromazine Hcl 25 Mg Tablet) 25 mg PO Q4H PRN PRN Reason: agitation. Clotrimazole (Clotrimazole 1 % Cream 15 Gm Tube) 1 appl TOPICAL BID [facility]; Protocol Last Admin: 03/30/22 12:16 Dose: 1 appl Docusate Sodium (Docusate Sodium 100 Mg Capsule) 100 mg PO BID [facility] Last Admin: 03/30/22 08:47 Dose: 100 mg Duloxetine HCl (Duloxetine Hcl 60 Mg Capsule.Dr) 120 mg PO DAILY [facility] Last Admin: 03/30/22 08:46 Dose: 120 mg Gabapentin (Gabapentin 300 Mg Capsule) 600 mg PO TID [facility] Last Admin: 03/30/22 08:47 Dose: 600 mg Ibuprofen (Ibuprofen 800 Mg Tablet) 800 mg PO TID [facility] Last Admin: 03/30/22 08:47 Dose: 800 mg Lidocaine (Lidocaine 4 % Patch Adh..Patch) 2 patch TRANSDERMA DAILY [facility]; Protocol PRN Reason: low back pain Magnesium Hydroxide (Milk Of Magnesia 30 Ml Oral.Susp) 30 ml PO DAILY PRN PRN Reason: Constipation Last Admin: 03/29/22 12:44 Dose: 30 ml Multi-Ingred Medicated Throat [place] (Throat [place], Medicated 20 Ml Bottle) 1 spray MUCOUS MEM Q2H PRN PRN Reason: Sore Throat Last Admin: 03/28/22 11:16 Dose: 1 spray Nicotine Polacrilex (Nicotine Polacrilex 2 Mg Gum) 2 mg BUCCAL Q1H PRN PRN Reason: Nicotine Cravings Nicotine Polacrilex (Nicotine Polacrilex Lozenge 2 Mg Lozenge) 2 mg BUCCAL Q1H PRN PRN Reason: Nicotine Cravings Nitrofurantoin Macrocrystals (Nitrofurantoin Monohyd/M-Cryst 100 Mg Capsule) 100 mg PO BIDWM [facility] Stop: 04/06/22 10:19 Last Admin: 03/30/22 10:48 Dose: 100 mg Olanzapine (Olanzapine 10 Mg Vial) 10 mg IM BID PRN PRN Reason: refusal of trilafonstanislav Last Admin: 03/23/22 21:48 Dose: 10 mg Oxycodone HCl (Oxycodone Hcl Immed Release 5 Mg Tablet) 5 mg PO Q12H PRN PRN Reason: Pain, Moderate (Pain Scale 4-6 Last Admin: 03/28/22 11:10 Dose: 5 mg Perphenazine (Perphenazine 8 Mg Tablet) 16 mg PO BID [facility] Last Admin: 03/30/22 08:46 Dose: 16 mg Saliva Substitute (Dry Mouth [place] 60 Ml [place]) 1 spray MUCOUS MEM Q2H PRN PRN Reason: xerostomia Last Admin: 03/28/22 22:16 Dose: 1 spray Senna (Sennosides 8.6 Mg Tablet) 17.2 mg PO DAILY [facility] Last Admin: 03/30/22 12:14 Dose: 17.2 mg Tamsulosin HCl (Tamsulosin Hcl 0.4 Mg Capsule) 0.4 mg PO BEDTIME [facility] Last Admin: 03/29/22 22:23 Dose: 0.4 mg Trazodone HCl (Trazodone Hcl 50 Mg Tablet) 50 mg PO BEDTIME PRN PRN Reason: Insomnia Last Admin: 03/29/22 01:38 Dose: 50 mg Triamcinolone Acetonide (Triamcinolone Acet 0.025 % Cream 15 Gm Tube) 1 appl TOPICAL BID [facility]; Protocol Last Admin: 03/30/22 12:14 Dose: 1 appl Home Medications Medication Instructions Recorded Confirmed Last Taken Type acetaminophen 325 mg tablet 2 tab PO Q6H PRN Pain 03/20/22 03/20/22 Unknown History benztropine 1 mg tablet 1 tab PO TID 03/20/22 03/20/22 Unknown History docusate sodium 100 mg capsule 1 cap PO BID 03/20/22 03/20/22 Unknown History duloxetine 60 mg capsule,delayed 2 cap PO DAILY 03/20/22 03/20/22 Unknown History release gabapentin 300 mg capsule 2 cap PO TID 03/20/22 03/20/22 Unknown History ibuprofen 800 mg tablet 1 tab PO TID 03/20/22 03/20/22 Unknown History oxcarbazepine 600 mg tablet 1 tab PO BID 03/20/22 03/20/22 Unknown History oxycodone 5 mg tablet 1 tab PO Q12H PRN pain 03/20/22 03/20/22 Unknown History perphenazine 2 mg tablet 3 tab PO BID 03/20/22 03/20/22 Unknown History perphenazine 8 mg tablet 1 tab PO BID 03/20/22 03/20/22 Unknown History sennosides 8.6 mg tablet (senna) 2 tab PO DAILY 03/20/22 03/20/22 Unknown History tamsulosin 0.4 mg capsule 1 cap PO BEDTIME 03/20/22 03/20/22 Unknown History trazodone 50 mg tablet 1 tab PO BEDTIME 03/20/22 03/20/22 Unknown History Physical Exam Vital Signs: Vital Signs: Last Vital Signs Temp 97.1 F 03/30/22 09:00 Pulse 91 03/30/22 11:08 Resp 18 03/30/22 09:00 BP 138/79 03/30/22 11:08 Pulse Ox 96 03/30/22 11:08 O2 Del Method 03/30/22 09:00 BMI result Body Mass Index 29.1 Neuro: Other: Recommend is blotchy rash was noted on dorsum of both arms and hands and his belly. He was alert and awake with normal spontaneity of speech and flat affect. Comprehension was intact. He was following commands. Leg reflexes were brisk. With assistance he was able to stand up. Speech was normal Results Labs CBC & Chem 7: 03/20/22 17:58 03/22/22 08:58 Microbiology Microbiology Results: Microbiology 03/27/22 Unknown Urine clean catch - Urine horowitz top Urine Culture - Final Staphylococcus epidermidis Assessment and Plan (1) Rash: Status: Acute This rash looks like it is from a medicine like carbamazepine. A typical drug rash could look like this. Stopping carbamazepine was appropriate. Otherwise treatment is conservative in p.r.n. hydroxyzine for itching can be used. (2) Myelitis: Status: Acute Spinal cord lesion was separate issue and treatment should continue as outlined before Procedures Date of Service Date of Service: 03/30/22
--- NOTE | 2022-03-30 15:13 | HO.PSYCHPN ---
Subjective Subjective Date of Service: 03/30/22 Reason For Visit: Psychosis Interim History: pt found sleeping in the sensory room with heavy metal music blasting from 1:1 phone. pt rousable, flashes of irritability but generally pleasant and cooperative. macular rash noted over extremities, also reportedly on trunk. agreeable to taper tegretol as the most likely etiology presently. asking for lidocaine patch for right shoulder. does not appear in pain, does appear fairly sedated. per staff, on 1:1 for fall risk. less sedated. hypersexual comments. c/o constipation. c/o abd pain. impaired gait. anx 5 dep 9. no SI/HI/AVH. eating and sleeping well. Mental Status Exam Mental Status Exam Narrative: cooperative, calm. no PMA/PMR. speech nml in rate, decr in amount, somewhat dysarthric. flattened tone, incr latency, decr loudness. thoughts tangential. affect calm and hypo-intense. mood unable to be assessed, no SI/HI/AVH expressed. Diagnostics Vital Signs (24Hr): Vital Signs - 24 hr 03/29/22 18:00 03/30/22 09:00 03/30/22 11:08 Temperature 98.2 F 97.1 F Pulse Rate 80 91 91 Respiratory Rate 16 18 Blood Pressure 158/92 H 138/79 138/79 Pulse Oximetry 97 96 96 Oxygen Delivery Method Room Air Room Air BMI result Body Mass Index 29.1 Labs Results: 03/20/22 17:58 03/22/22 08:58 Imaging Radiology Impressions: ITS Impressions Head CT 03/20/22 23:40 IMPRESSION: No acute intracranial pathology. Medications Medications Current Medications Acetaminophen (Acetaminophen 325 Mg Tablet) 650 mg PO Q6H PRN PRN Reason: Headache/Pain Mild Scale (1-3) Last Admin: 03/25/22 23:11 Dose: 650 mg Al Hydroxide/Mg Hydroxide (Magnesium Hydrox/Alum Hydrox 30 Ml Oral.Susp) 30 ml PO Q6H PRN PRN Reason: Heartburn/Nausea Last Admin: 03/25/22 17:22 Dose: 30 ml Benzocaine (Throat Lozenge, Medicated Lozenge) 1 lozenge MUCOUS MEM Q1H PRN PRN Reason: xerostomia Last Admin: 03/27/22 06:10 Dose: 1 lozenge Benztropine Mesylate (Benztropine Mesylate 1 Mg Tablet) 1 mg PO TID [facility] Last Admin: 03/30/22 08:46 Dose: 1 mg Calcium Carbonate (Calcium Carbonate 750 Mg Tab.Chew) 750 mg PO Q4H PRN PRN Reason: Dyspepsia Last Admin: 03/29/22 15:07 Dose: 750 mg Carbamazepine (Carbamazepine Er 200 Mg Tab.Er.12h) 400 mg PO BID [facility] Chlorpromazine HCl (Chlorpromazine Hcl 25 Mg Tablet) 25 mg PO Q4H PRN PRN Reason: agitation. Clotrimazole (Clotrimazole 1 % Cream 15 Gm Tube) 1 appl TOPICAL BID [facility]; Protocol Last Admin: 03/30/22 12:16 Dose: 1 appl Docusate Sodium (Docusate Sodium 100 Mg Capsule) 100 mg PO BID [facility] Last Admin: 03/30/22 08:47 Dose: 100 mg Duloxetine HCl (Duloxetine Hcl 60 Mg Capsule.Dr) 120 mg PO DAILY [facility] Last Admin: 03/30/22 08:46 Dose: 120 mg Gabapentin (Gabapentin 300 Mg Capsule) 600 mg PO TID [facility] Last Admin: 03/30/22 08:47 Dose: 600 mg Ibuprofen (Ibuprofen 800 Mg Tablet) 800 mg PO TID [facility] Last Admin: 03/30/22 08:47 Dose: 800 mg Lidocaine (Lidocaine 4 % Patch Adh..Patch) 2 patch TRANSDERMA DAILY PRN; Protocol PRN Reason: low back pain Magnesium Hydroxide (Milk Of Magnesia 30 Ml Oral.Susp) 30 ml PO DAILY PRN PRN Reason: Constipation Last Admin: 03/29/22 12:44 Dose: 30 ml Multi-Ingred Medicated Throat [place] (Throat [place], Medicated 20 Ml Bottle) 1 spray MUCOUS MEM Q2H PRN PRN Reason: Sore Throat Last Admin: 03/28/22 11:16 Dose: 1 spray Nicotine Polacrilex (Nicotine Polacrilex 2 Mg Gum) 2 mg BUCCAL Q1H PRN PRN Reason: Nicotine Cravings Nicotine Polacrilex (Nicotine Polacrilex Lozenge 2 Mg Lozenge) 2 mg BUCCAL Q1H PRN PRN Reason: Nicotine Cravings Nitrofurantoin Macrocrystals (Nitrofurantoin Monohyd/M-Cryst 100 Mg Capsule) 100 mg PO BIDWM [facility] Stop: 04/06/22 10:19 Last Admin: 03/30/22 10:48 Dose: 100 mg Olanzapine (Olanzapine 10 Mg Vial) 10 mg IM BID PRN PRN Reason: refusal of stanislav jung Last Admin: 03/23/22 21:48 Dose: 10 mg Oxycodone HCl (Oxycodone Hcl Immed Release 5 Mg Tablet) 5 mg PO Q12H PRN PRN Reason: Pain, Moderate (Pain Scale 4-6 Last Admin: 03/28/22 11:10 Dose: 5 mg Perphenazine (Perphenazine 8 Mg Tablet) 16 mg PO BID [facility] Last Admin: 03/30/22 08:46 Dose: 16 mg Saliva Substitute (Dry Mouth [place] 60 Ml [place]) 1 spray MUCOUS MEM Q2H PRN PRN Reason: xerostomia Last Admin: 03/28/22 22:16 Dose: 1 spray Senna (Sennosides 8.6 Mg Tablet) 17.2 mg PO DAILY [facility] Last Admin: 03/30/22 12:14 Dose: 17.2 mg Tamsulosin HCl (Tamsulosin Hcl 0.4 Mg Capsule) 0.4 mg PO BEDTIME [facility] Last Admin: 03/29/22 22:23 Dose: 0.4 mg Trazodone HCl (Trazodone Hcl 50 Mg Tablet) 50 mg PO BEDTIME PRN PRN Reason: Insomnia Last Admin: 03/29/22 01:38 Dose: 50 mg Triamcinolone Acetonide (Triamcinolone Acet 0.025 % Cream 15 Gm Tube) 1 appl TOPICAL BID [facility]; Protocol Last Admin: 03/30/22 12:14 Dose: 1 appl Allergies Allergies Allergy/AdvReac Type Severity Reaction Status Date / Time haloperidol [From HALDOL] Allergy Intermediate UNKNOWN Verified 03/16/22 14:25 Assessment & Plan Assessment & Plan (1) Rash: Status: Acute Code(s): R21 - Rash and other nonspecific skin eruption Assessment and Plan: This rash looks like it is from a medicine like carbamazepine. A typical drug rash could look like this. Stopping carbamazepine was appropriate. Otherwise treatment is conservative in p.r.n. hydroxyzine for itching can be used. (2) Myelitis: Status: Acute Code(s): G04.91 - Myelitis, unspecified Assessment and Plan: Spinal cord lesion was separate issue and treatment should continue as outlined before (3) Acute psychosis: Status: Acute Code(s): F23 - Brief psychotic disorder Plan 03/22: continue outpt meds for now.? t/c ranitidine for GERD, incr in gabapentin for pain, trazodone for sleep.? educate re evidence-based mood stabilizers and attempt to get pt to take one of the three. 03/23: agrees to trial of tegretol in place of trileptal.? trileptal DCed and tegretol started at 600 BID.? perphenazine increased to 16 BID and IM back-ups prescribed.? requesting neuro consult to see if any post-lesion syndrome may account for c/o cramps/pain and if there is anything that may be done to help.? thorazine and ativan PRNs prescribed. 03/24: per neuro consult, no need for further neuro w/u or intervention, pt recovering well from myelitis.? check HIV1&2.? steroid cream for rash, artificial saliva/lozenges Rxed.? encouraged to take tegretol, which he had said he would do yesterday but which he has not done (aside from 200 mg). 03/25: rash Dx as scabies, treated yesterday.? took tegretol 600 this morning and reports improved mood today.? encouraged compliance. 03/26: compliant with tegretol past 24H.? appears a bit sedated today; will decrease PRNs.? crural complaints, referred to hospitalist. 03/28: sedated.? decreasing medications which may cause delirium or sedation.? ativan, baclofen, trazodone, hydroxyzine DCed.? started keflex for UTI.? otherwise previous plan continued.? clearly unsteady on his feet, either sedated or getting delirious. 03/29: Patient less sedated alert not aggressive doing better with less sedating medication continue current treatment plan per Dr. Quiñones. 03/30: taper tegretol as likely offender for the rash. ask neuro to opine. PT consult for gait. sensitivities of urine species noted, antibx changed from keflex to nitrofurantoin. I spent ___40___ minutes with the patient and/or on the patient floor today, greater than?50% of which was spent counseling/coordinating care. Reason for contiued inpatient stay Substantial Risk for: inability to function and rapid decompensation
--- NOTE | 2022-03-30 16:57 | PC.NURSE ---
Addendum entered by Yarely Farrell 03/30/22 16:59: Patient reported some lightheadedness on standing- orthostatic BP done, no significant changes noted. MD aware. Patient set up with walker, educated on use of walker. 1:1 maintained for safety. Original Note: Patient increasingly alert, gait steadier. Dr. Quiñones and supervisor tellers called: patient now on 1:1 fall monitoring, no longer needs 2 staff.
[2022-03-30 17:04] VITALS: BP 133/93; PULSE 78; RESP 20; O2SAT 98
[2022-03-30 17:05] VITALS: BP 131/90; PULSE 86; RESP 20; O2SAT 98
[2022-03-30 22:37] VITALS: BP 186/97; PULSE 86; RESP 14; TEMP 36.6; O2SAT 98
[2022-03-30] MEDS: carBAMazepine ER 200 MG TAB.ER.12H 400 MG PO (22:47)
[2022-03-30] MEDS: Tamsulosin HCL 0.4 MG CAPSULE PO (22:49)
[2022-03-31] MEDS: Perphenazine 8 MG TABLET 16 MG PO ×2 (08:17→19:44)
[2022-03-31] MEDS: Ibuprofen 800 MG TABLET PO ×2 (08:17→16:38)
[2022-03-31] MEDS: Gabapentin 300 MG CAPSULE 600 MG PO ×3 (08:17→19:45)
[2022-03-31] MEDS: DULoxetine HCl 60 MG CAPSULE.DR 120 MG PO (08:17)
[2022-03-31] MEDS: carBAMazepine ER 200 MG TAB.ER.12H 400 MG PO (08:17)
[2022-03-31] MEDS: Docusate Sodium 100 MG CAPSULE PO (08:17)
[2022-03-31] MEDS: Benztropine Mesylate 1 MG TABLET PO ×3 (08:17→19:46)
[2022-03-31] MEDS: Sennosides 8.6 MG TABLET 17.2 MG PO (08:17)
[2022-03-31] MEDS: Nitrofurantoin Monohyd/M-Cryst 100 MG CAPSULE PO ×2 (08:22→16:38)
[2022-03-31 08:23] VITALS: BP 132/91; PULSE 90; RESP 17; TEMP 36.8; O2SAT 97
[2022-03-31] MEDS: oxyCODONE HCl Immed Release 5 MG TABLET PO (09:04)
[2022-03-31] MEDS: LORazepam 1 MG TABLET PO (11:27)
[2022-03-31] MEDS: Clotrimazole 1 % Cream 15 GM TUBE 1 APPL TOPICAL ×2 (13:40→19:43)
[2022-03-31] MEDS: Triamcinolone Acet 0.025 % Cream 15 GM TUBE 1 APPL TOPICAL ×2 (13:40→19:43)
--- NOTE | 2022-03-31 13:59 | P.PNPSI_ITS ---
Subjective Subjective Date of Service: 03/31/22 Reason For Visit: Psychosis Interim History: pt more alert and awake today than in previous days, also more irritable and labile. ultimately agreeable to switch out tegretol (seems to be causing the rash) in favor or trileptal (which he has been on in the past and to which he did not have an adverse reaction). he has declined to take VPA and lithium, both of which he believes do not agree with him. per staff, remains on 1:1. labile, expressing urges to act out violently. slept most of day shift yesterday. dizzy and nauseated at times. slammed walker into the wall in a sudden fit of pique, no apparent provoking factor. Mental Status Exam Mental Status Exam Narrative: cooperative, calm. no PMA/PMR. speech nml in rate, decr in amount, somewhat dysarthric. flattened tone, incr latency, decr loudness. thoughts more linear and organized. affect calm and hypo-intense, still a bit sedated. mood irritable, no SI/HI/AVH expressed. Diagnostics Vital Signs (24Hr): Vital Signs - 24 hr 03/30/22 17:04 03/30/22 17:05 03/30/22 22:37 Temperature 97.8 F Pulse Rate 78 86 86 Respiratory Rate 20 20 14 Blood Pressure 133/93 H 131/90 H 186/97 H Pulse Oximetry 98 98 98 Oxygen Delivery Method Room Air Room Air Room Air 03/31/22 08:23 Temperature 98.3 F Pulse Rate 90 Respiratory Rate 17 Blood Pressure 132/91 H Pulse Oximetry 97 Oxygen Delivery Method Room Air BMI result Body Mass Index 29.7 Labs Results: 03/20/22 17:58 03/22/22 08:58 Imaging Radiology Impressions: ITS Impressions Head CT 03/20/22 23:40 IMPRESSION: No acute intracranial pathology. Medications Medications Current Medications Acetaminophen (Acetaminophen 325 Mg Tablet) 650 mg PO Q6H PRN PRN Reason: Headache/Pain Mild Scale (1-3) Last Admin: 03/25/22 23:11 Dose: 650 mg Al Hydroxide/Mg Hydroxide (Magnesium Hydrox/Alum Hydrox 30 Ml Oral.Susp) 30 ml PO Q6H PRN PRN Reason: Heartburn/Nausea Last Admin: 03/25/22 17:22 Dose: 30 ml Benzocaine (Throat Lozenge, Medicated Lozenge) 1 lozenge MUCOUS MEM Q1H PRN PRN Reason: xerostomia Last Admin: 03/27/22 06:10 Dose: 1 lozenge Benztropine Mesylate (Benztropine Mesylate 1 Mg Tablet) 1 mg PO TID [facility] Last Admin: 03/31/22 08:17 Dose: 1 mg Calcium Carbonate (Calcium Carbonate 750 Mg Tab.Chew) 750 mg PO Q4H PRN PRN Reason: Dyspepsia Last Admin: 03/29/22 15:07 Dose: 750 mg Carbamazepine (Carbamazepine Er 200 Mg Tab.Er.12h) 400 mg PO BID [facility] Last Admin: 03/31/22 08:17 Dose: 400 mg Chlorpromazine HCl (Chlorpromazine Hcl 25 Mg Tablet) 25 mg PO Q4H PRN PRN Reason: agitation. Clotrimazole (Clotrimazole 1 % Cream 15 Gm Tube) 1 appl TOPICAL BID [facility]; Protocol Last Admin: 03/31/22 13:40 Dose: 1 appl Docusate Sodium (Docusate Sodium 100 Mg Capsule) 100 mg PO BID [facility] Last Admin: 03/31/22 08:17 Dose: 100 mg Duloxetine HCl (Duloxetine Hcl 60 Mg Capsule.Dr) 120 mg PO DAILY [facility] Last Admin: 03/31/22 08:17 Dose: 120 mg Gabapentin (Gabapentin 300 Mg Capsule) 600 mg PO TID [facility] Last Admin: 03/31/22 08:17 Dose: 600 mg Ibuprofen (Ibuprofen 800 Mg Tablet) 800 mg PO TID [facility] Last Admin: 03/31/22 08:17 Dose: 800 mg Lidocaine (Lidocaine 4 % Patch Adh..Patch) 2 patch TRANSDERMA DAILY PRN; Protocol PRN Reason: low back pain Magnesium Hydroxide (Milk Of Magnesia 30 Ml Oral.Susp) 30 ml PO DAILY PRN PRN Reason: Constipation Last Admin: 03/29/22 12:44 Dose: 30 ml Multi-Ingred Medicated Throat [place] (Thro[place], Medicated 20 Ml Bottle) 1 spray MUCOUS MEM Q2H PRN PRN Reason: Sore Throat Last Admin: 03/28/22 11:16 Dose: 1 spray Nicotine Polacrilex (Nicotine Polacrilex 2 Mg Gum) 2 mg BUCCAL Q1H PRN PRN Reason: Nicotine Cravings Nicotine Polacrilex (Nicotine Polacrilex Lozenge 2 Mg Lozenge) 2 mg BUCCAL Q1H PRN PRN Reason: Nicotine Cravings Nitrofurantoin Macrocrystals (Nitrofurantoin Monohyd/M-Cryst 100 Mg Capsule) 100 mg PO BIDWM [facility] Stop: 04/06/22 10:19 Last Admin: 03/31/22 08:22 Dose: 100 mg Olanzapine (Olanzapine 10 Mg Vial) 10 mg IM BID PRN PRN Reason: refusal of stanislav jung Last Admin: 03/23/22 21:48 Dose: 10 mg Oxycodone HCl (Oxycodone Hcl Immed Release 5 Mg Tablet) 5 mg PO Q12H PRN PRN Reason: severe pain Last Admin: 03/31/22 09:04 Dose: 5 mg Perphenazine (Perphenazine 8 Mg Tablet) 16 mg PO BID [facility] Last Admin: 03/31/22 08:17 Dose: 16 mg Saliva Substitute ([place]ry [place] 60 Ml [place]) 1 spray MUCOUS MEM Q2H PRN PRN Reason: xerostomia Last Admin: 03/28/22 22:16 Dose: 1 spray Senna (Sennosides 8.6 Mg Tablet) 17.2 mg PO DAILY [facility] Last Admin: 03/31/22 08:17 Dose: 17.2 mg Tamsulosin HCl (Tamsulosin Hcl 0.4 Mg Capsule) 0.4 mg PO BEDTIME [facility] Last Admin: 03/30/22 22:49 Dose: 0.4 mg Trazodone HCl (Trazodone Hcl 50 Mg Tablet) 50 mg PO BEDTIME PRN PRN Reason: Insomnia Last Admin: 03/29/22 01:38 Dose: 50 mg Triamcinolone Acetonide (Triamcinolone Acet 0.025 % Cream 15 Gm Tube) 1 appl TOPICAL BID [facility]; Protocol Last Admin: 03/31/22 13:40 Dose: 1 appl Allergies Allergies Allergy/AdvReac Type Severity Reaction Status Date / Time haloperidol [From HALDOL] Allergy Intermediate UNKNOWN Verified 03/16/22 14:25 Assessment & Plan Assessment & Plan (1) Rash: Status: Acute Code(s): R21 - Rash and other nonspecific skin eruption Assessment and Plan: This rash looks like it is from a medicine like carbamazepine. A typical drug rash could look like this. Stopping carbamazepine was appropriate. Otherwise treatment is conservative in p.r.n. hydroxyzine for itching can be used. (2) Myelitis: Status: Acute Code(s): G04.91 - Myelitis, unspecified Assessment and Plan: Spinal cord lesion was separate issue and treatment should continue as outlined before (3) Acute psychosis: Status: Acute Code(s): F23 - Brief psychotic disorder Plan 03/22: continue outpt meds for now.? t/c ranitidine for GERD, incr in gabapentin for pain, trazodone for sleep.? educate re evidence-based mood stabilizers and attempt to get pt to take one of the three. 03/23: agrees to trial of tegretol in place of trileptal.? trileptal DCed and tegretol started at 600 BID.? perphenazine increased to 16 BID and IM back-ups prescribed.? requesting neuro consult to see if any post-lesion syndrome may account for c/o cramps/pain and if there is anything that may be done to help.? thorazine and ativan PRNs prescribed. 03/24: per neuro consult, no need for further neuro w/u or intervention, pt recovering well from myelitis.? check HIV1&2.? steroid cream for rash, artificial saliva/lozenges Rxed.? encouraged to take tegretol, which he had said he would do yesterday but which he has not done (aside from 200 mg). 03/25: rash Dx as scabies, treated yesterday.? took tegretol 600 this morning and reports improved mood today.? encouraged compliance. 03/26: compliant with tegretol past 24H.? appears a bit sedated today; will decrease PRNs.? crural complaints, referred to hospitalist. 03/28: sedated.? decreasing medications which may cause delirium or sedation.? ativan, baclofen, trazodone, hydroxyzine DCed.? started keflex for UTI.? otherwise previous plan continued.? clearly unsteady on his feet, either sedated or getting delirious. 03/29: Patient less sedated alert not aggressive doing better with less sedating medication continue current treatment plan per Dr. Quiñones. 03/30: taper tegretol as likely offender for the rash. neuro opines likely druge rash. PT consult for gait. sensitivities of urine species noted, antibx changed from keflex to nitrofurantoin x 7 days. 03/31: DC tegretol and start trileptal at a 1:1.5 ratio. pt has tolerated trileptal in the past without adverse reaction. less sedated today, rash looks a bit better. keflex also DCed yesterday but rash appears to have begun prior to first dose of keflex. I spent ___35___ minutes with the patient and/or on the patient floor today, greater than?50% of which was spent counseling/coordinating care. Reason for contiued inpatient stay Substantial Risk for: harm to self, harm to others, inability to function and rapid decompensation
[2022-03-31] MEDS: Nicotine Polacrilex Lozenge 2 MG LOZENGE BUCCAL (17:21)
[2022-03-31 19:34] VITALS: BP 152/84; PULSE 88; TEMP 37.1; O2SAT 95
[2022-03-31] MEDS: OXcarbazepine 300 MG TABLET 600 MG PO (19:44)
[2022-03-31] MEDS: chlorproMAZINE HCl 25 MG TABLET PO (19:48)
[2022-03-31] MEDS: Tamsulosin HCL 0.4 MG CAPSULE PO (19:48)
[2022-04-01] MEDS: oxyCODONE HCl Immed Release 5 MG TABLET PO ×2 (02:57→15:09)
[2022-04-01] MEDS: Acetaminophen 325 MG TABLET 650 MG PO ×2 (03:38→10:31)
[2022-04-01 07:56] VITALS: BP 139/85; PULSE 94; RESP 14; TEMP 36.8; O2SAT 97
[2022-04-01] MEDS: OXcarbazepine 300 MG TABLET 600 MG PO ×2 (08:08→20:18)
[2022-04-01] MEDS: Gabapentin 300 MG CAPSULE 600 MG PO ×3 (08:08→20:18)
[2022-04-01] MEDS: Perphenazine 8 MG TABLET 16 MG PO ×2 (08:09→20:19)
[2022-04-01] MEDS: Benztropine Mesylate 1 MG TABLET PO ×3 (08:09→20:19)
[2022-04-01] MEDS: Nitrofurantoin Monohyd/M-Cryst 100 MG CAPSULE PO ×2 (08:09→16:04)
[2022-04-01] MEDS: DULoxetine HCl 60 MG CAPSULE.DR 120 MG PO (08:10)
[2022-04-01] MEDS: Ibuprofen 800 MG TABLET PO ×3 (08:10→20:19)
[2022-04-01] MEDS: LORazepam 1 MG TABLET PO ×2 (10:32→15:55)
--- NOTE | 2022-04-01 14:44 | P.PNPSI_ITS ---
Subjective Subjective Date of Service: 04/01/22 Reason For Visit: Psychosis Subjective Notes: Conditional Voluntary Healthcare Proxy: No Guardianship: Yes (ng order) Medical Problems Affecting Mental Status: Yes (rash from tegretol ? - ) Interim History: Pt with complaints about rash and also about something found on his spine- co sciatica left leg and some undescribable issues with right- says 2 different small masses - he is stablizing with his mood/anxiety /irritability agreeable to current medications also uti on nitofurantin also unclear why gait unstead if reaction to medications Medication Compliance: Yes Side effects from medications: Yes (? rash ) Attending Groups: No Review of Systems Acute medical concerns: Yes rash, reviewed with dr kristine scott - she did not know history of tegretol- pt also mentioned he had been out in [place] before admission- we will try hydrocortisone ointment and benadryl po prior to prednisone which might make pt manic he is not systemically looking ill at this point Review of Systems: see above and prior Mental Status Exam Mental Status Exam Patient Appearance: Unkempt Patient Orientation: Person, Place and Situation Level of Consciousness: Awake Patient Behavior: Cooperative Mood Description: Anxious Affect Description: Blunted Patient Cognition Impaired: No Ability to Follow Directions: Fair Speech Pattern: Clear Thought Process: Intact Thought Content: positive for Goal Oriented Judgement: Fair (improved) Diagnostics Vital Signs (24Hr): Vital Signs - 24 hr 03/31/22 19:34 04/01/22 07:56 Temperature 98.7 F 98.3 F Pulse Rate 88 94 Respiratory Rate 14 Blood Pressure 152/84 H 139/85 Pulse Oximetry 95 97 Oxygen Delivery Method Room Air Room Air BMI result Body Mass Index 29.7 Labs Results: 03/20/22 17:58 03/22/22 08:58 Imaging Radiology Impressions: ITS Impressions Head CT 03/20/22 23:40 IMPRESSION: No acute intracranial pathology. Medications Medications Current Medications Acetaminophen (Acetaminophen 325 Mg Tablet) 650 mg PO Q6H PRN PRN Reason: Headache/Pain Mild Scale (1-3) Last Admin: 04/01/22 10:31 Dose: 650 mg Al Hydroxide/Mg Hydroxide (Magnesium Hydrox/Alum Hydrox 30 Ml Oral.Susp) 30 ml PO Q6H PRN PRN Reason: Heartburn/Nausea Last Admin: 03/25/22 17:22 Dose: 30 ml Benzocaine (Throat Lozenge, Medicated Lozenge) 1 lozenge MUCOUS MEM Q1H PRN PRN Reason: xerostomia Last Admin: 03/27/22 06:10 Dose: 1 lozenge Benztropine Mesylate (Benztropine Mesylate 1 Mg Tablet) 1 mg PO TID [facility] Last Admin: 04/01/22 08:09 Dose: 1 mg Calcium Carbonate (Calcium Carbonate 750 Mg Tab.Chew) 750 mg PO Q4H PRN PRN Reason: Dyspepsia Last Admin: 03/29/22 15:07 Dose: 750 mg Chlorpromazine HCl (Chlorpromazine Hcl 25 Mg Tablet) 25 mg PO Q4H PRN PRN Reason: agitation. Last Admin: 03/31/22 19:48 Dose: 25 mg Clotrimazole (Clotrimazole 1 % Cream 15 Gm Tube) 1 appl TOPICAL BID [facility]; Protocol Last Admin: 04/01/22 08:22 Dose: Not Given Docusate Sodium (Docusate Sodium 100 Mg Capsule) 100 mg PO BID [facility] Last Admin: 04/01/22 08:22 Dose: Not Given Duloxetine HCl (Duloxetine Hcl 60 Mg Capsule.Dr) 120 mg PO DAILY [facility] Last Admin: 04/01/22 08:10 Dose: 120 mg Gabapentin (Gabapentin 300 Mg Capsule) 600 mg PO TID [facility] Last Admin: 04/01/22 08:08 Dose: 600 mg Ibuprofen (Ibuprofen 800 Mg Tablet) 800 mg PO TID [facility] Last Admin: 04/01/22 08:10 Dose: 800 mg Lidocaine (Lidocaine 4 % Patch Adh..Patch) 2 patch TRANSDERMA DAILY PRN; Protocol PRN Reason: low back pain Magnesium Hydroxide (Milk Of Magnesia 30 Ml Oral.Susp) 30 ml PO DAILY PRN PRN Reason: Constipation Last Admin: 03/29/22 12:44 Dose: 30 ml Multi-Ingred Medicated Throat [place] (Throat [place], Medicated 20 Ml Bottle) 1 spray MUCOUS MEM Q2H PRN PRN Reason: Sore Throat Last Admin: 03/28/22 11:16 Dose: 1 spray Nicotine Polacrilex (Nicotine Polacrilex 2 Mg Gum) 2 mg BUCCAL Q1H PRN PRN Reason: Nicotine Cravings Nicotine Polacrilex (Nicotine Polacrilex Lozenge 2 Mg Lozenge) 2 mg BUCCAL Q1H PRN PRN Reason: Nicotine Cravings Last Admin: 03/31/22 17:21 Dose: 2 mg Nitrofurantoin Macrocrystals (Nitrofurantoin Monohyd/M-Cryst 100 Mg Capsule) 100 mg PO BIDWM [facility] Stop: 04/06/22 10:19 Last Admin: 04/01/22 08:09 Dose: 100 mg Olanzapine (Olanzapine 10 Mg Vial) 10 mg IM BID PRN PRN Reason: refusal of stanislav jung Last Admin: 03/23/22 21:48 Dose: 10 mg Oxcarbazepine (Oxcarbazepine 300 Mg Tablet) 600 mg PO BID [facility] Last Admin: 04/01/22 08:08 Dose: 600 mg Oxycodone HCl (Oxycodone Hcl Immed Release 5 Mg Tablet) 5 mg PO Q12H PRN PRN Reason: severe pain Last Admin: 04/01/22 02:57 Dose: 5 mg Perphenazine (Perphenazine 8 Mg Tablet) 16 mg PO BID [facility] Last Admin: 04/01/22 08:09 Dose: 16 mg Saliva Substitute (Dry Mouth [place] 60 Ml [place]) 1 spray MUCOUS MEM Q2H PRN PRN Reason: xerostomia Last Admin: 03/28/22 22:16 Dose: 1 spray Senna (Sennosides 8.6 Mg Tablet) 17.2 mg PO DAILY [facility] Last Admin: 04/01/22 08:22 Dose: Not Given Tamsulosin HCl (Tamsulosin Hcl 0.4 Mg Capsule) 0.4 mg PO BEDTIME [facility] Last Admin: 03/31/22 19:48 Dose: 0.4 mg Trazodone HCl (Trazodone Hcl 50 Mg Tablet) 50 mg PO BEDTIME PRN PRN Reason: Insomnia Last Admin: 03/29/22 01:38 Dose: 50 mg Triamcinolone Acetonide (Triamcinolone Acet 0.025 % Cream 15 Gm Tube) 1 appl TOPICAL BID [facility]; Protocol Last Admin: 04/01/22 08:22 Dose: Not Given I dced triamcinloine and wrote for hydrocortisone ointment, and benadryl po may need to re write the antifungal - Allergies Allergies Allergy/AdvReac Type Severity Reaction Status Date / Time haloperidol [From HALDOL] Allergy Intermediate UNKNOWN Verified 03/16/22 14:25 Assessment & Plan Assessment & Plan (1) Rash: Status: Acute Code(s): R21 - Rash and other nonspecific skin eruption Assessment and Plan: This rash looks like it is from a medicine like carbamazepine. A typical drug rash could look like this. Stopping carbamazepine was appropriate. Otherwise treatment is conservative in p.r.n. hydroxyzine for itching can be used.04/[address] liz - will try bid ointment hydrocortisone and benadrly for 24 hr if still not improved may need to do combo steroid with ativan/thorazine to limit risk of kristen pt had exposed himself to direct sun without protection spf or appropriate skin covering prior to admit (2) Myelitis: Status: Acute Code(s): G04.91 - Myelitis, unspecified Assessment and Plan: Spinal cord lesion was separate issue and treatment should continue as outlined before pt fairly distressed about this co sciatica and has unstable gait though that may be better (3) Acute psychosis: Status: Acute Code(s): F23 - Brief psychotic disorder Assessment and Plan: had been violent a few times with his walker on 1:1 more organized- back on medications Plan 03/22: continue outpt meds for now.? t/c ranitidine for GERD, incr in gabapentin for pain, trazodone for sleep.? educate re evidence-based mood stabilizers and attempt to get pt to take one of the three. 03/23: agrees to trial of tegretol in place of trileptal.? trileptal DCed and tegretol started at 600 BID.? perphenazine increased to 16 BID and IM back-ups prescribed.? requesting neuro consult to see if any post-lesion syndrome may account for c/o cramps/pain and if there is anything that may be done to help.? thorazine and ativan PRNs prescribed. 03/24: per neuro consult, no need for further neuro w/u or intervention, pt recovering well from myelitis.? check HIV1&2.? steroid cream for rash, art ificial saliva/lozenges Rxed.? encouraged to take tegretol, which he had said he would do yesterday but which he has not done (aside from 200 mg). 03/25: rash Dx as scabies, treated yesterday.? took tegretol 600 this morning and reports improved mood today.? encouraged compliance. 03/26: compliant with tegretol past 24H.? appears a bit sedated today; will decrease PRNs.? crural complaints, referred to hospitalist. 03/28: sedated.? decreasing medications which may cause delirium or sedation.? ativan, baclofen, trazodone, hydroxyzine DCed.? started keflex for UTI.? otherwise previous plan continued.? clearly unsteady on his feet, either sedated or getting delirious. 03/29: Patient less sedated alert not aggressive doing better with less sedating medication continue current treatment plan per Dr. Quiñones. 03/30: taper tegretol as likely offender for the rash. neuro opines likely druge rash. PT consult for gait. sensitivities of urine species noted, antibx changed from keflex to nitrofurantoin x 7 days. 03/31: DC tegretol and start trileptal at a 1:1.5 ratio. pt has tolerated trileptal in the past without adverse reaction. less sedated today, rash looks a bit better. keflex also DCed yesterday but rash appears to have begun prior to first dose of keflex. I spent minutes with the patient and/or on the patient floor today, greater than?50% of which was spent counseling/coordinating care. Patient educated on: medication risk/benefits and medical condition Informed Consent: understands Reason for contiued inpatient stay Substantial Risk for: rapid decompensation and med/psych decompensation
[2022-04-01] MEDS: diphenhydrAMINE HCL 25 MG TABLET 50 MG PO ×2 (15:08→20:18)
[2022-04-01] MEDS: Tamsulosin HCL 0.4 MG CAPSULE PO (20:18)
[2022-04-01] MEDS: Hydrocortisone 1 % Ointment 28.35 GM TUBE 1 APPL TOPICAL (20:19)
[2022-04-01 20:38] VITALS: BP 148/81; PULSE 85; RESP 17; TEMP 37.1; O2SAT 97
[2022-04-02] MEDS: Acetaminophen 325 MG TABLET 650 MG PO (03:56)
[2022-04-02] MEDS: oxyCODONE HCl Immed Release 5 MG TABLET PO ×2 (03:58→18:59)
[2022-04-02] MEDS: Ibuprofen 800 MG TABLET PO ×3 (06:35→21:21)
[2022-04-02] MEDS: Benztropine Mesylate 1 MG TABLET PO ×3 (09:15→21:20)
[2022-04-02] MEDS: Nitrofurantoin Monohyd/M-Cryst 100 MG CAPSULE PO ×2 (09:16→16:28)
[2022-04-02] MEDS: DULoxetine HCl 60 MG CAPSULE.DR 120 MG PO (09:16)
[2022-04-02] MEDS: Hydrocortisone 1 % Ointment 28.35 GM TUBE 1 APPL TOPICAL ×2 (09:16→21:57)
[2022-04-02] MEDS: OXcarbazepine 300 MG TABLET 600 MG PO (09:16)
[2022-04-02] MEDS: Gabapentin 300 MG CAPSULE 600 MG PO (09:16)
[2022-04-02] MEDS: Perphenazine 8 MG TABLET 16 MG PO ×2 (09:16→21:20)
[2022-04-02] MEDS: diphenhydrAMINE HCL 25 MG TABLET 50 MG PO (09:16)
[2022-04-02 09:27] VITALS: BP 135/80; PULSE 85; RESP 17; TEMP 36.9; O2SAT 97
--- NOTE | 2022-04-02 09:56 | P.PNPSI_ITS ---
Subjective Subjective Date of Service: 04/02/22 Reason For Visit: Psychosis Subjective Notes: Conditional Voluntary Healthcare Proxy: No Guardianship: Yes Medical Problems Affecting Mental Status: Yes Interim History: taking benadryl - and ointment- no improvement with this for 24 hrs we will start steroid GAit is more stable - does not need walker- and moving to 5 min checks agrees to prns as needed after steroids start Medication Compliance: Yes Side effects from medications: Yes (rash ? of trileptal as related to tegretol will dc) Attending Groups: No Review of Systems Acute medical concerns: Yes rash Medical Review of Systems: unchanged Review of Systems: other than gait more stable Review of Systems Review of Systems ongoing rash - whole body Mental Status Exam Mental Status Exam Patient Appearance: Fatigued Patient Orientation: Person, Place and Situation Level of Consciousness: Drowsy Patient Behavior: Appropriate Mood Description: Calm Affect Description: Appropriate Patient Cognition Impaired: No Ability to Follow Directions: Fair Speech Pattern: Clear Thought Process: Intact Thought Content: positive for [place] Judgement: Fair Diagnostics Vital Signs (24Hr): Vital Signs - 24 hr 04/01/22 20:38 04/02/22 09:27 Temperature 98.7 F 98.4 F Pulse Rate 85 85 Respiratory Rate 17 17 Blood Pressure 148/81 H 135/80 Pulse Oximetry 97 97 Oxygen Delivery Method Room Air Room Air BMI result Body Mass Index 29.7 Labs Results: 03/20/22 17:58 03/22/22 08:58 EKG EKG: reviewed (03/21 qtc 427) Imaging Radiology Impressions: ITS Impressions Head CT 03/20/22 23:40 IMPRESSION: No acute intracranial pathology. Medications Medications Current Medications Acetaminophen (Acetaminophen 325 Mg Tablet) 650 mg PO Q6H PRN PRN Reason: Headache/Pain Mild Scale (1-3) Last Admin: 04/02/22 03:56 Dose: 650 mg Al Hydroxide/Mg Hydroxide (Magnesium Hydrox/Alum Hydrox 30 Ml Oral.Susp) 30 ml PO Q6H PRN PRN Reason: Heartburn/Nausea Last Admin: 03/25/22 17:22 Dose: 30 ml Benzocaine (Throat Lozenge, Medicated Lozenge) 1 lozenge MUCOUS MEM Q1H PRN PRN Reason: xerostomia Last Admin: 03/27/22 06:10 Dose: 1 lozenge Benztropine Mesylate (Benztropine Mesylate 1 Mg Tablet) 1 mg PO TID [facility] Last Admin: 04/02/22 09:15 Dose: 1 mg Calcium Carbonate (Calcium Carbonate 750 Mg Tab.Chew) 750 mg PO Q4H PRN PRN Reason: Dyspepsia Last Admin: 03/29/22 15:07 Dose: 750 mg Chlorpromazine HCl (Chlorpromazine Hcl 25 Mg Tablet) 25 mg PO Q4H PRN PRN Reason: agitation. Last Admin: 03/31/22 19:48 Dose: 25 mg Diphenhydramine HCl (Diphenhydramine Hcl 25 Mg Tablet) 50 mg PO TID [facility] Last Admin: 04/02/22 09:16 Dose: 50 mg Docusate Sodium (Docusate Sodium 100 Mg Capsule) 100 mg PO BID [facility] Last Admin: 04/02/22 09:20 Dose: Not Given Duloxetine HCl (Duloxetine Hcl 60 Mg Capsule.Dr) 120 mg PO DAILY [facility] Last Admin: 04/02/22 09:16 Dose: 120 mg Gabapentin (Gabapentin 300 Mg Capsule) 600 mg PO TID [facility] Last Admin: 04/02/22 09:16 Dose: 600 mg Hydrocortisone (Hydrocortisone 1 % Ointment 28.35 Gm Tube) 1 appl TOPICAL BID [facility]; Protocol Last Admin: 04/02/22 09:16 Dose: 1 appl Ibuprofen (Ibuprofen 800 Mg Tablet) 800 mg PO TID [facility] Last Admin: 04/02/22 06:35 Dose: 800 mg Lidocaine (Lidocaine 4 % Patch Adh..Patch) 2 patch TRANSDERMA DAILY PRN; Prot ocol PRN Reason: low back pain Lorazepam (Lorazepam 1 Mg Tablet) 1 mg PO Q6H PRN PRN Reason: Anxiety Last Admin: 04/01/22 15:55 Dose: 1 mg Magnesium Hydroxide (Milk Of Magnesia 30 Ml Oral.Susp) 30 ml PO DAILY PRN PRN Reason: Constipation Last Admin: 03/29/22 12:44 Dose: 30 ml Multi-Ingred Medicated Throat [place] (Throat [place], Medicated 20 Ml Bottle) 1 spray MUCOUS MEM Q2H PRN PRN Reason: Sore Throat Last Admin: 03/28/22 11:16 Dose: 1 spray Nicotine Polacrilex (Nicotine Polacrilex 2 Mg Gum) 2 mg BUCCAL Q1H PRN PRN Reason: Nicotine Cravings Nicotine Polacrilex (Nicotine Polacrilex Lozenge 2 Mg Lozenge) 2 mg BUCCAL Q1H PRN PRN Reason: Nicotine Cravings Last Admin: 03/31/22 17:21 Dose: 2 mg Nitrofurantoin Macrocrystals (Nitrofurantoin Monohyd/M-Cryst 100 Mg Capsule) 100 mg PO BIDWM [facility] Stop: 04/06/22 10:19 Last Admin: 04/02/22 09:16 Dose: 100 mg Olanzapine (Olanzapine 10 Mg Vial) 10 mg IM BID PRN PRN Reason: refusal of stanislav jung Last Admin: 03/23/22 21:48 Dose: 10 mg Oxcarbazepine (Oxcarbazepine 300 Mg Tablet) 600 mg PO BID [facility] Last Admin: 04/02/22 09:16 Dose: 600 mg Oxycodone HCl (Oxycodone Hcl Immed Release 5 Mg Tablet) 5 mg PO Q12H PRN PRN Reason: severe pain Last Admin: 04/02/22 03:58 Dose: 5 mg Perphenazine (Perphenazine 8 Mg Tablet) 16 mg PO BID [facility] Last Admin: 04/02/22 09:16 Dose: 16 mg Saliva Substitute (Dry Mouth [place] 60 Ml [place]) 1 spray MUCOUS MEM Q2H PRN PRN Reason: xerostomia Last Admin: 03/28/22 22:16 Dose: 1 spray Senna (Sennosides 8.6 Mg Tablet) 17.2 mg PO DAILY [facility] Last Admin: 04/02/22 09:20 Dose: Not Given Tamsulosin HCl (Tamsulosin Hcl 0.4 Mg Capsule) 0.4 mg PO BEDTIME [facility] Last Admin: 04/01/22 20:18 Dose: 0.4 mg Trazodone HCl (Trazodone Hcl 50 Mg Tablet) 50 mg PO BEDTIME PRN PRN Reason: Insomnia Last Admin: 03/29/22 01:38 Dose: 50 mg Allergies Allergies Allergy/AdvReac Type Severity Reaction Status Date / Time haloperidol [From HALDOL] Allergy Intermediate UNKNOWN Verified 03/16/22 14:25 Assessment & Plan Assessment & Plan (1) Rash: Status: Acute Code(s): R21 - Rash and other nonspecific skin eruption Assessment and Plan: This rash looks like it is from a medicine like carbamazepine. A typical drug rash could look like this. Stopping carbamazepine was appropriate. Otherwise treatment is conservative in p.r.n. hydroxyzine for itching can be used.04/[address] liz - will try bid ointment hydrocortisone and benadrly for 24 hr if still not improved may need to do combo steroid with ativan/thorazine to limit risk of kristen pt had exposed himself to direct sun without protection spf or appropriate skin covering prior to admit 04/02 continues to have bad full body rash, also sodium was low last checked will dc trileptal and inc gabapentin start steroids today then inc tomorrow then taper- prn ativan and antipsychotic prn any kristen induced by steroid (warned pt of risk) consulted with dr liz sent picture of rash (2) Myelitis: Status: Acute Code(s): G04.91 - Myelitis, unspecified Assessment and Plan: Spinal cord lesion was separate issue and treatment should continue as outlined before pt fairly distressed about this co sciatica and has unstable gait though that may be better discussed with pt not cancer= not progressive- inflammation of myelin (3) Acute psychosis: Status: Acute Code(s): F23 - Brief psychotic disorder Assessment and Plan: no further agitation with walker walking more steady no need 1:1, will move to 5 min checks continue current antipsychotics and prns Plan 03/22: continue outpt meds for now.? t/c ranitidine for GERD, incr in gabapentin for pain, trazodone for sleep.? educate re evidence-based mood stabilizers and a ttempt to get pt to take one of the three. 03/23: agrees to trial of tegretol in place of trileptal.? trileptal DCed and tegretol started at 600 BID.? perphenazine increased to 16 BID and IM back-ups prescribed.? requesting neuro consult to see if any post-lesion syndrome may account for c/o cramps/pain and if there is anything that may be done to help.? thorazine and ativan PRNs prescribed. 03/24: per neuro consult, no need for further neuro w/u or intervention, pt recovering well from myelitis.? check HIV1&2.? steroid cream for rash, artificial saliva/lozenges Rxed.? encouraged to take tegretol, which he had said he would do yesterday but which he has not done (aside from 200 mg). 03/25: rash Dx as scabies, treated yesterday.? took tegretol 600 this morning and reports improved mood today.? encouraged compliance. 03/26: compliant with tegretol past 24H.? appears a bit sedated today; will decr ease PRNs.? crural complaints, referred to hospitalist. 03/28: sedated.? decreasing medications which may cause delirium or sedation.? ativan, baclofen, trazodone, hydroxyzine DCed.? started keflex for UTI.? otherwise previous plan continued.? clearly unsteady on his feet, either sedated or getting delirious. 03/29: Patient less sedated alert not aggressive doing better with less sedating medication continue current treatment plan per Dr. Quiñones. 03/30: taper tegretol as likely offender for the rash. neuro opines likely druge rash. PT consult for gait. sensitivities of urine species noted, antibx changed from keflex to nitrofurantoin x 7 days. 03/31: DC tegretol and start trileptal at a 1:1.5 ratio. pt has tolerated trileptal in the past without adverse reaction. less sedated today, rash looks a bit better. keflex also DCed yesterday but rash appears to have begun prior to first dose of keflex. 04/02 dc trileltap low sodium and also risk of rash-increased gabapentin from 600mg tid to 800mg tid and plenty of prns if gets manic I spent minutes with the patient and/or on the patient floor today, greater than?50% of which was spent counseling/coordinating care. Patient educated on: medication risk/benefits and medical condition Informed Consent: understands Reason for contiued inpatient stay Substantial Risk for: rapid decompensation and med/psych decompensation
[2022-04-02] MEDS: Gabapentin 400 MG CAPSULE 800 MG PO ×2 (14:43→21:21)
[2022-04-02] MEDS: predniSONE 10 MG TABLET 30 MG PO (16:28)
[2022-04-02] MEDS: LORazepam 1 MG TABLET PO (19:17)
[2022-04-02 21:05] VITALS: BP 135/88; PULSE 86; RESP 16; TEMP 36.6; O2SAT 96
[2022-04-02] MEDS: Tamsulosin HCL 0.4 MG CAPSULE PO (21:20)
[2022-04-02] MEDS: Docusate Sodium 100 MG CAPSULE PO (21:21)
[2022-04-02] MEDS: chlorproMAZINE HCl 25 MG TABLET PO (21:29)
[2022-04-03] MEDS: oxyCODONE HCl Immed Release 5 MG TABLET PO ×2 (06:12→20:11)
[2022-04-03 08:21] LABS: MANUAL DIFF FLAG NO
[2022-04-03 08:25] LABS: Basophils Percent Auto 0.3 % (0-2); Eosinophils Absolute Auto 0.5 X10*3/uL (0.0-0.4); Eosinophils Percent Auto 4.1 % (0-4); Hematocrit 43.4 % (42.0-52.0); Hemoglobin 14.7 g/dl (14.0-18.0); Imm Gran Abs Auto 0.03 X10*3/uL (0.00-0.03); Imm Gran Pct Auto 0.3 % (0.0-0.4); Lymphocytes Absolute Auto 1.6 X10*3/uL (1.2-4.9); Lymphocytes Percent Auto 13.6 % (20-40); Mean Corpuscular HGB Conc 33.9 g/dl (31.0-36.0); Mean Corpuscular Hemoglobin 33.1 pg (27.0-33.0); Mean Corpuscular Volume 97.7 fL (80.0-98.0); Mean Platelet Volume 8.3 fL (9.4-12.4); Monocytes Absolute Auto 0.8 X10*3/uL (0.1-1.2); Monocytes Percent Auto 6.3 % (2-11); Neutrophils Percent Auto 75.4 % (45-73); Platelet Count 300 X10*3/uL (160-400); Red Blood Count 4.44 X10*6/uL (4.60-5.80); Red Cell Distribution Width 14.7 % (11.0-16.0)
[2022-04-03] MEDS: Gabapentin 400 MG CAPSULE 800 MG PO ×3 (08:46→20:10)
[2022-04-03] MEDS: DULoxetine HCl 60 MG CAPSULE.DR 120 MG PO (08:46)
[2022-04-03] MEDS: Nitrofurantoin Monohyd/M-Cryst 100 MG CAPSULE PO ×2 (08:46→17:15)
[2022-04-03] MEDS: Sennosides 8.6 MG TABLET 17.2 MG PO (08:47)
[2022-04-03] MEDS: Ibuprofen 800 MG TABLET PO ×3 (08:47→20:10)
[2022-04-03] MEDS: Benztropine Mesylate 1 MG TABLET PO ×3 (08:47→20:10)
[2022-04-03] MEDS: Docusate Sodium 100 MG CAPSULE PO ×2 (08:47→20:10)
[2022-04-03] MEDS: predniSONE 20 MG TABLET 40 MG PO (08:48)
[2022-04-03] MEDS: Perphenazine 8 MG TABLET 16 MG PO ×2 (08:48→20:10)
[2022-04-03 08:53] LABS: Anion Gap 13 (12-20); Blood Urea Nitrogen 11 mg/dL (9-16); Calcium 9.2 mg/dL (8.4-10.2); Carbon Dioxide 29 mmol/L (22-29); Chloride 97 mmol/L (96-108); Creatinine Clr Calc Pharmacy 115.8; Estimated Glomerular Filt Rate > 60; Glucose Random 122 mg/dL (60-115); Sodium 135 mmol/L (135-145)
[2022-04-03 09:38] VITALS: BP 126/76; PULSE 75; RESP 18; TEMP 36.6; O2SAT 97
[2022-04-03] MEDS: diphenhydrAMINE HCL 25 MG TABLET 50 MG PO ×2 (11:22→20:10)
[2022-04-03] MEDS: LORazepam 1 MG TABLET PO ×2 (11:22→19:00)
[2022-04-03] MEDS: Acetaminophen 325 MG TABLET 650 MG PO (11:43)
[2022-04-03] MEDS: chlorproMAZINE HCl 25 MG TABLET PO (11:43)
[2022-04-03] MEDS: Lidocaine 4 % Patch ADH..PATCH 1 PATCH TRANSDERMA (12:41)
--- NOTE | 2022-04-03 14:04 | HO.PSYCHPN ---
Subjective Subjective Date of Service: 04/03/22 Reason For Visit: Psychosis Interim History: calm, cooperative. much steadier on his feet, much more lucid, no longer appearing delirious. no irritability detected. reports he is feeling rested. c/o return of awareness of pain in his shoulders and neck. agrees to apply lidocaine patch. per staff, no longer on 1:1, now on Q5 min checks. visible, social. pacing. less sedated. PRN thorazine. sleeping OK. pleasant, social. Mental Status Exam Mental Status Exam Narrative: cooperative, calm. no PMA/PMR. speech nml in rate, decr in amount, somewhat dysarthric. flattened tone, incr latency, decr loudness. thoughts linear and logical. affect calm and hypo-intense. mood not labile or irritable, no SI/HI/AVH expressed. Diagnostics Vital Signs (24Hr): Vital Signs - 24 hr 04/02/22 21:05 04/03/22 09:38 Temperature 97.9 F 97.8 F Pulse Rate 86 75 Respiratory Rate 16 18 Blood Pressure 135/88 126/76 Pulse Oximetry 96 97 Oxygen Delivery Method Room Air Room Air BMI result Body Mass Index 29.7 Labs Results: 04/03/22 08:10 04/03/22 08:10 Labs: Laboratory Results - last 48 hr 04/03/22 04/03/22 08:10 08:10 WBC 12.0 H RBC 4.44 L Hgb 14.7 Hct 43.4 MCV 97.7 MCH 33.1 H MCHC 33.9 RDW 14.7 Plt Count 300 MPV 8.3 L Immature Gran % (Auto) 0.3 Neut % (Auto) 75.4 H Lymph % (Auto) 13.6 L [place] % (Auto) 6.3 Eos % (Auto) 4.1 H Baso % (Auto) 0.3 Lymph # (Auto) 1.6 [place] # (Auto) 0.8 Eos # (Auto) 0.5 H Baso # (Auto) 0.0 Abs Immat Gran (auto) 0.03 Absolute Neuts (auto) 9.0 H Absolute Nucleated RBC 0.000 Nucleated RBC % (auto) 0.0 Sodium 135 Potassium 4.0 Chloride 97 Carbon Dioxide 29 Anion Gap 13 BUN 11 Creatinine 0.73 Estim Creat Clear Calc 115.8 Estimated GFR > 60 Random Glucose 122 H Calcium 9.2 D Imaging Radiology Impressions: [facility] Impressions Head CT 03/20/22 23:40 IMPRESSION: No acute intracranial pathology. Medications Medications Current Medications Acetaminophen (Acetaminophen 325 Mg Tablet) 650 mg PO Q6H PRN PRN Reason: Headache/Pain Mild Scale (1-3) Last Admin: 04/03/22 11:43 Dose: 650 mg Al Hydroxide/Mg Hydroxide (Magnesium Hydrox/Alum Hydrox 30 Ml Oral.Susp) 30 ml PO Q6H PRN PRN Reason: Heartburn/Nausea Last Admin: 03/25/22 17:22 Dose: 30 ml Benzocaine (Throat Lozenge, Medicated Lozenge) 1 lozenge MUCOUS MEM Q1H PRN PRN Reason: xerostomia Last Admin: 03/27/22 06:10 Dose: 1 lozenge Benztropine Mesylate (Benztropine Mesylate 1 Mg Tablet) 1 mg PO TID [facility] Last Admin: 04/03/22 08:47 Dose: 1 mg Calcium Carbonate (Calcium Carbonate 750 Mg Tab.Chew) 750 mg PO Q4H PRN PRN Reason: Dyspepsia Last Admin: 03/29/22 15:07 Dose: 750 mg Chlorpromazine HCl (Chlorpromazine Hcl 25 Mg Tablet) 25 mg PO Q4H PRN PRN Reason: agitation. Last Admin: 04/03/22 11:43 Dose: 25 mg Diphenhydramine HCl (Diphenhydramine Hcl 25 Mg Tablet) 50 mg PO TID PRN PRN Reason: itching/agitation Last Admin: 04/03/22 11:22 Dose: 50 mg Docusate Sodium (Docusate Sodium 100 Mg Capsule) 100 mg PO BID [facility] Last Admin: 04/03/22 08:47 Dose: 100 mg Duloxetine HCl (Duloxetine Hcl 60 Mg Capsule.Dr) 120 mg PO DAILY [facility] Last Admin: 04/03/22 08:46 Dose: 120 mg Gabapentin (Gabapentin 400 Mg Capsule) 800 mg PO TID [facility] Last Admin: 04/03/22 08:46 Dose: 800 mg Hydrocortisone (Hydrocortisone 1 % Ointment 28.35 Gm Tube) 1 appl TOPICAL BID [facility]; Protocol Last Admin: 04/03/22 12:47 Dose: Not Given Ibuprofen (Ibuprofen 800 Mg Tablet) 800 mg PO TID [facility] Last Admin: 04/03/22 08:47 Dose: 800 mg Lidocaine (Lidocaine 4 % Patch Adh..Patch) 2 patch TRANSDERMA DAILY PRN; Protocol PRN Reason: low back pain Lidocaine (Lidocaine 4 % Patch Adh..Patch) 1 patch TRANSDERMA DAILY [facility]; Protocol Last Admin: 04/03/22 12:41 Dose: 1 patch Lorazepam (Lorazepam 1 Mg Tablet) 1 mg PO Q4H PRN PRN Reason: Anxiety Last Admin: 04/03/22 11:22 Dose: 1 mg Magnesium Hydroxide (Milk Of Magnesia 30 Ml Oral.Susp) 30 ml PO DAILY PRN PRN Reason: Constipation Last Admin: 03/29/22 12:44 Dose: 30 ml Multi-Ingred Medicated Throat [place] (Throat [place], Medicated 20 Ml Bottle) 1 spray MUCOUS MEM Q2H PRN PRN Reason: Sore Throat Last Admin: 03/28/22 11:16 Dose: 1 spray Nicotine Polacrilex (Nicotine Polacrilex 2 Mg Gum) 2 mg BUCCAL Q1H PRN PRN Reason: Nicotine Cravings Nicotine Polacrilex (Nicotine Polacrilex Lozenge 2 Mg Lozenge) 2 mg BUCCAL Q1H PRN PRN Reason: Nicotine Cravings Last Admin: 03/31/22 17:21 Dose: 2 mg Nitrofurantoin Macrocrystals (Nitrofurantoin Monohyd/M-Cryst 100 Mg Capsule) 100 mg PO BIDWM [facility] Stop: 04/06/22 10:19 Last Admin: 04/03/22 08:46 Dose: 100 mg Olanzapine (Olanzapine 10 Mg Vial) 10 mg IM BID PRN PRN Reason: refusal of stanislav jung Last Admin: 03/23/22 21:48 Dose: 10 mg Oxycodone HCl (Oxycodone Hcl Immed Release 5 Mg Tablet) 5 mg PO Q12H PRN PRN Reason: severe pain Last Admin: 04/03/22 06:12 Dose: 5 mg Perphenazine (Perphenazine 8 Mg Tablet) 16 mg PO BID [facility] Last Admin: 04/03/22 08:48 Dose: 16 mg Prednisone (Prednisone 20 Mg Tablet) 20 mg PO ONCE ONE Stop: 04/04/22 08:01 Prednisone (Prednisone 10 Mg Tablet) 10 mg PO ONCE ONE Stop: 04/05/22 08:01 Saliva Substitute (Dry Mouth [place] 60 Ml [place]) 1 spray MUCOUS MEM Q2H PRN PRN Reason: xerostomia Last Admin: 03/28/22 22:16 Dose: 1 spray Senna (Sennosides 8.6 Mg Tablet) 17.2 mg PO DAILY [facility] Last Admin: 04/03/22 08:47 Dose: 17.2 mg Tamsulosin HCl (Tamsulosin Hcl 0.4 Mg Capsule) 0.4 mg PO BEDTIME [facility] Last Admin: 04/02/22 21:20 Dose: 0.4 mg Allergies Allergies Allergy/AdvReac Type Severity Reaction Status Date / Time haloperidol [From HALDOL] Allergy Intermediate UNKNOWN Verified 03/16/22 14:25 Assessment & Plan Assessment & Plan (1) Rash: Status: Acute Code(s): R21 - Rash and other nonspecific skin eruption Assessment and Plan: This rash looks like it is from a medicine like carbamazepine. A typical drug rash could look like this. Stopping carbamazepine was appropriate. Otherwise treatment is conservative in p.r.n. hydroxyzine for itching can be used.04/[address] liz - will try bid ointment hydrocortisone and benadrly for 24 hr if still not improved may need to do combo steroid with ativan/thorazine to limit risk of kristen pt had exposed himself to direct sun without protection spf or appropriate skin covering prior to admit 04/02 continues to have bad full body rash, also sodium was low last checked will dc trileptal and inc gabapentin start steroids today then inc tomorrow then taper- prn ativan and antipsychotic prn any kristen induced by steroid (warned pt of risk) consulted with dr liz sent picture of rash (2) Myelitis: Status: Acute Code(s): G04.91 - Myelitis, unspecified Assessment and Plan: Spinal cord lesion was separate issue and treatment should continue as outlined before pt fairly distressed about this co sciatica and has unstable gait though that may be better discussed with pt not cancer= not progressive- inflammation of myelin (3) Acute psychosis: Status: Acute Code(s): F23 - Brief psychotic disorder Assessment and Plan: no further agitation with walker walking more steady no need 1:1, will move to 5 min checks continue current antipsychotics and prns Plan 03/22: continue outpt meds for now.? t/c ranitidine for GERD, incr in gabapentin for pain, trazodone for sleep.? educate re evidence-based mood stabilizers and attempt to get pt to take one of the three. 03/23: agrees to trial of tegretol in place of trileptal.? trileptal DCed and tegretol started at 600 BID.? perphenazine increased to 16 BID and IM back-ups prescribed.? requesting neuro consult to see if any post-lesion syndrome may account for c/o cramps/pain and if there is anything that may be done to help.? thorazine and ativan PRNs prescribed. 03/24: per neuro consult, no need for further neuro w/u or intervention, pt recovering well from myelitis.? check HIV1&2.? steroid cream for rash, artificial saliva/lozenges Rxed.? encouraged to take tegretol, which he had said he would do yesterday but which he has not done (aside from 200 mg). 03/25: rash Dx as scabies, treated yesterday.? took tegretol 600 this morning and reports improved mood today.? encouraged compliance. 03/26: compliant with tegretol past 24H.? appears a bit sedated today; will decrease PRNs.? crural complaints, referred to hospitalist. 03/28: sedated.? decreasing medications which may cause delirium or sedation.? ativan, baclofen, trazodone, hydroxyzine DCed.? started keflex for UTI.? otherwise previous plan continued.? clearly unsteady on his feet, either sedated or getting delirious. 03/29: Patient less sedated alert not aggressive doing better with less sedating medication continue current treatment plan per Dr. Quiñones. 03/30: taper tegretol as likely offender for the rash. neuro opines likely druge rash. PT consult for gait. sensitivities of urine species noted, antibx changed from keflex to nitrofurantoin x 7 days. 03/31: DC tegretol and start trileptal at a 1:1.5 ratio. pt has tolerated trileptal in the past without adverse reaction. less sedated today, rash looks a bit better. keflex also DCed yesterday but rash appears to have begun prior to first dose of keflex. 7/17 dc trileltap low sodium and also risk of rash-increased gabapentin from 600mg tid to 800mg tid and plenty of prns if gets manic. 04/03: much improved mental status from last week. due either to adequate treatment of UTI with change in antibiotic or DC of tegretol. trileptal DCed over w/e due to hyponatremia; may need to restart trileptal if mood becomes labile/irritable. hyponatremia noted within a day or two of DC of tegretol and start of trileptal, meaning it was due to tegretol rather than trileptal. pt has tolerated trileptal in the past. I spent ___25___ minutes with the patient and/or on the patient floor today, greater than?50% of which was spent counseling/coordinating care. Reason for contiued inpatient stay Substantial Risk for: inability to function and rapid decompensation
[2022-04-03] MEDS: Milk of Magnesia 30 ML ORAL.SUSP PO (15:29)
[2022-04-03] MEDS: Nicotine Polacrilex Lozenge 2 MG LOZENGE BUCCAL (19:00)
[2022-04-03] MEDS: Tamsulosin HCL 0.4 MG CAPSULE PO (20:10)
[2022-04-03 20:15] VITALS: BP 116/72; PULSE 100; RESP 16; TEMP 36.6; O2SAT 96
[2022-04-03] MEDS: Calcium Carbonate 750 MG TAB.CHEW PO (22:36)
[2022-04-04] MEDS: LORazepam 1 MG TABLET PO ×2 (00:39→16:59)
[2022-04-04] MEDS: Magnesium Hydrox/Alum Hydrox 30 ML ORAL.SUSP PO (00:42)
[2022-04-04] MEDS: Lidocaine 4 % Patch ADH..PATCH 2 PATCH TRANSDERMA (02:44)
[2022-04-04] MEDS: oxyCODONE HCl Immed Release 5 MG TABLET PO ×2 (06:46→20:18)
[2022-04-04] MEDS: Docusate Sodium 100 MG CAPSULE PO ×2 (08:44→20:13)
[2022-04-04] MEDS: DULoxetine HCl 60 MG CAPSULE.DR 120 MG PO (08:44)
[2022-04-04] MEDS: Ibuprofen 800 MG TABLET PO ×3 (08:44→20:13)
[2022-04-04] MEDS: predniSONE 20 MG TABLET PO (08:44)
[2022-04-04] MEDS: Sennosides 8.6 MG TABLET 17.2 MG PO (08:44)
[2022-04-04] MEDS: Gabapentin 400 MG CAPSULE 800 MG PO ×3 (08:44→20:12)
[2022-04-04] MEDS: Perphenazine 8 MG TABLET 16 MG PO ×2 (08:45→20:13)
[2022-04-04] MEDS: Benztropine Mesylate 1 MG TABLET PO ×3 (08:45→20:13)
[2022-04-04] MEDS: Nitrofurantoin Monohyd/M-Cryst 100 MG CAPSULE PO ×2 (08:45→16:59)
[2022-04-04 08:50] VITALS: BP 133/71; PULSE 93; RESP 18; TEMP 36.7; O2SAT 98
[2022-04-04 09:41] VITALS: BP 116/72; PULSE 100; O2SAT 96
--- NOTE | 2022-04-04 15:03 | HO.PSYCHPN ---
Subjective Subjective Date of Service: 04/04/22 Reason For Visit: Psychosis Interim History: pt found lying in bed. irritable, moderately labile, a big change from yesterday. MD suggests need to return to mood stabilizer use, pt states he won't take the medication. talks of going back to court and getting rid of yogesh's. MD clarified the trileptal - and other mood stabilizers - are not on the yogesh's in any case and he may refuse them. we were able to have productive discussions around pain mgmt of his shoulder and back with lidocaine patches as well as his potential return to methadone or suboxone use (consult placed with annie rea to discuss options). ultimately pt turned away from MD in bed and told MD to do what you need to do. per staff, not attending groups. napping extra. denies anx/dep. eating and sleeping well. right shoulder pain, now getting lidocaine patch. Mental Status Exam Mental Status Exam Narrative: cooperative. no PMA/PMR. speech nml in rate, decr in amount, clear. flattened tone, incr latency, decr loudness. thoughts linear and logical. affect constricted, hyper-intense, mod-labile. mood irritable. no SI/HI/AVH expressed. Diagnostics Vital Signs (24Hr): Vital Signs - 24 hr 04/03/22 20:15 04/04/22 09:41 04/04/22 08:50 Temperature 97.8 F 98.0 F Pulse Rate 100 100 93 Respiratory Rate 16 18 Blood Pressure 116/72 116/72 133/71 Pulse Oximetry 96 96 98 Oxygen Delivery Method Room Air Room Air BMI result Body Mass Index 29.7 Labs Results: 04/03/22 08:10 04/03/22 08:10 Labs: Laboratory Results - last 48 hr 04/03/22 04/03/22 08:10 08:10 WBC 12.0 H RBC 4.44 L Hgb 14.7 Hct 43.4 MCV 97.7 MCH 33.1 H MCHC 33.9 RDW 14.7 Plt Count 300 MPV 8.3 L Immature Gran % (Auto) 0.3 Neut % (Auto) 75.4 H Lymph % (Auto) 13.6 L [place] % (Auto) 6.3 Eos % (Auto) 4.1 H Baso % (Auto) 0.3 Lymph # (Auto) 1.6 [place] # (Auto) 0.8 Eos # (Auto) 0.5 H Baso # (Auto) 0.0 Abs Immat Gran (auto) 0.03 Absolute Neuts (auto) 9.0 H Absolute Nucleated RBC 0.000 Nucleated RBC % (auto) 0.0 Sodium 135 Potassium 4.0 Chloride 97 Carbon Dioxide 29 Anion Gap 13 BUN 11 Creatinine 0.73 Estim Creat Clear Calc 115.8 Estimated GFR > 60 Random Glucose 122 H Calcium 9.2 D Imaging Radiology Impressions: ITS Impressions Head CT 03/20/22 23:40 IMPRESSION: No acute intracranial pathology. Medications Medications Current Medications Acetaminophen (Acetaminophen 325 Mg Tablet) 650 mg PO Q6H PRN PRN Reason: Headache/Pain Mild Scale (1-3) Last Admin: 04/03/22 11:43 Dose: 650 mg Al Hydroxide/Mg Hydroxide (Magnesium Hydrox/Alum Hydrox 30 Ml Oral.Susp) 30 ml PO Q6H PRN PRN Reason: Heartburn/Nausea Last Admin: 04/04/22 00:42 Dose: 30 ml Benzocaine (Throat Lozenge, Medicated Lozenge) 1 lozenge MUCOUS MEM Q1H PRN PRN Reason: xerostomia Last Admin: 03/27/22 06:10 Dose: 1 lozenge Benztropine Mesylate (Benztropine Mesylate 1 Mg Tablet) 1 mg PO TID [facility] Last Admin: 04/04/22 08:45 Dose: 1 mg Calcium Carbonate (Calcium Carbonate 750 Mg Tab.Chew) 750 mg PO Q4H PRN PRN Reason: Dyspepsia Last Admin: 04/03/22 22:36 Dose: 750 mg Chlorpromazine HCl (Chlorpromazine Hcl 25 Mg Tablet) 25 mg PO Q4H PRN PRN Reason: agitation. Last Admin: 04/03/22 11:43 Dose: 25 mg Diphenhydramine HCl (Diphenhydramine Hcl 25 Mg Tablet) 50 mg PO TID PRN PRN Reason: itching/agitation Last Admin: 04/03/22 20:10 Dose: 50 mg Docusate Sodium (Docusate Sodium 100 Mg Capsule) 100 mg PO BID [facility] Last Admin: 04/04/22 08:44 Dose: 100 mg Duloxetine HCl (Duloxetine Hcl 60 Mg Capsule.Dr) 120 mg PO DAILY [facility] Last Admin: 04/04/22 08:44 Dose: 120 mg Gabapentin (Gabapentin 400 Mg Capsule) 800 mg PO TID [facility] Last Admin: 04/04/22 08:44 Dose: 800 mg Hydrocortisone (Hydrocortisone 1 % Ointment 28.35 Gm Tube) 1 appl TOPICAL BID [facility]; Protocol Last Admin: 04/04/22 13:43 Dose: Not Given Ibuprofen (Ibuprofen 800 Mg Tablet) 800 mg PO TID [facility] Last Admin: 04/04/22 08:44 Dose: 800 mg Lidocaine (Lidocaine 4 % Patch Adh..Patch) 2 patch TRANSDERMA DAILY PRN; Protocol PRN Reason: low back pain Last Admin: 04/04/22 02:44 Dose: 2 patch Lidocaine (Lidocaine 4 % Patch Adh..Patch) 1 patch TRANSDERMA DAILY PRN; Protocol PRN Reason: shoulder pain Lorazepam (Lorazepam 1 Mg Tablet) 1 mg PO Q4H PRN PRN Reason: Anxiety Last Admin: 04/04/22 00:39 Dose: 1 mg Magnesium Hydroxide (Milk Of Magnesia 30 Ml Oral.Susp) 30 ml PO DAILY PRN PRN Reason: Constipation Last Admin: 04/03/22 15:29 Dose: 30 ml Multi-Ingred Medicated Throat [place] (Throat [place], Medicated 20 Ml Bottle) 1 spray MUCOUS MEM Q2H PRN PRN Reason: Sore Throat Last Admin: 03/28/22 11:16 Dose: 1 spray Nicotine Polacrilex (Nicotine Polacrilex 2 Mg Gum) 2 mg BUCCAL Q1H PRN PRN Reason: Nicotine Cravings Nicotine Polacrilex (Nicotine Polacrilex Lozenge 2 Mg Lozenge) 2 mg BUCCAL Q1H PRN PRN Reason: Nicotine Cravings Last Admin: 04/03/22 19:00 Dose: 2 mg Nitrofurantoin Macrocrystals (Nitrofurantoin Monohyd/M-Cryst 100 Mg Capsule) 100 mg PO BIDWM [facility] Stop: 04/06/22 10:19 Last Admin: 04/04/22 08:45 Dose: 100 mg Olanzapine (Olanzapine 10 Mg Vial) 10 mg IM BID PRN PRN Reason: refusal of trilafonstanislav Last Admin: 03/23/22 21:48 Dose: 10 mg Oxcarbazepine (Oxcarbazepine 150 Mg Tablet) 450 mg PO BID [facility] Oxycodone HCl (Oxycodone Hcl Immed Release 5 Mg Tablet) 5 mg PO Q12H PRN PRN Reason: severe pain Last Admin: 04/04/22 06:46 Dose: 5 mg Perphenazine (Perphenazine 8 Mg Tablet) 16 mg PO BID [facility] Last Admin: 04/04/22 08:45 Dose: 16 mg Prednisone (Prednisone 10 Mg Tablet) 10 mg PO ONCE ONE Stop: 04/05/22 08:01 Saliva Substitute (Dry Mouth [place] 60 Ml [place]) 1 spray MUCOUS MEM Q2H PRN PRN Reason: xerostomia Last Admin: 03/28/22 22:16 Dose: 1 spray Senna (Sennosides 8.6 Mg Tablet) 17.2 mg PO DAILY [facility] Last Admin: 04/04/22 08:44 Dose: 17.2 mg Tamsulosin HCl (Tamsulosin Hcl 0.4 Mg Capsule) 0.4 mg PO BEDTIME [facility] Last Admin: 04/03/22 20:10 Dose: 0.4 mg Allergies Allergies Allergy/AdvReac Type Severity Reaction Status Date / Time haloperidol [From HALDOL] Allergy Intermediate UNKNOWN Verified 03/16/22 14:25 Assessment & Plan Assessment & Plan (1) Rash: Status: Acute Code(s): R21 - Rash and other nonspecific skin eruption Assessment and Plan: This rash looks like it is from a medicine like carbamazepine. A typical drug rash could look like this. Stopping carbamazepine was appropriate. Otherwise treatment is conservative in p.r.n. hydroxyzine for itching can be used.04/[address] liz - will try bid ointment hydrocortisone and benadrly for 24 hr if still not improved may need to do combo steroid with ativan/thorazine to limit risk of kristen pt had exposed himself to direct sun without protection spf or appropriate skin covering prior to admit 04/02 continues to have bad full body rash, also sodium was low last checked will dc trileptal and inc gabapentin start steroids today then inc tomorrow then taper- prn ativan and antipsychotic prn any kristen induced by steroid (warned pt of risk) consulted with dr liz sent picture of rash (2) Myelitis: Status: Acute Code(s): G04.91 - Myelitis, unspecified Assessment and Plan: Spinal cord lesion was separate issue and treatment should continue as outlined before pt fairly distressed about this co sciatica and has unstable gait though that may be better discussed with pt not cancer= not progressive- inflammation of myelin (3) Acute psychosis: Status: Acute Code(s): F23 - Brief psychotic disorder Assessment and Plan: no further agitation with walker walking more steady no need 1:1, will move to 5 min checks continue current antipsychotics and prns Plan 03/22: continue outpt meds for now.? t/c ranitidine for GERD, incr in gabapentin for pain, trazodone for sleep.? educate re evidence-based mood stabilizers and attempt to get pt to take one of the three. 03/23: agrees to trial of tegretol in place of trileptal.? trileptal DCed and tegretol started at 600 BID.? perphenazine increased to 16 BID and IM back-ups prescribed.? requesting neuro consult to see if any post-lesion syndrome may account for c/o cramps/pain and if there is anything that may be done to help.? thorazine and ativan PRNs prescribed. 03/24: per neuro consult, no need for further neuro w/u or intervention, pt recovering well from myelitis.? check HIV1&2.? steroid cream for rash, artificial saliva/lozenges Rxed.? encouraged to take tegretol, which he had said he would do yesterday but which he has not done (aside from 200 mg). 03/25: rash Dx as scabies, treated yesterday.? took tegretol 600 this morning and reports improved mood today.? encouraged compliance. 03/26: compliant with tegretol past 24H.? appears a bit sedated today; will decrease PRNs.? crural complaints, referred to hospitalist. 03/28: sedated.? decreasing medications which may cause delirium or sedation.? ativan, baclofen, trazodone, hydroxyzine DCed.? started keflex for UTI.? otherwise previous plan continued.? clearly unsteady on his feet, either sedated or getting delirious. 03/29: Patient less sedated alert not aggressive doing better with less sedating medication continue current treatment plan per Dr. Quiñones. 03/30: taper tegretol as likely offender for the rash. neuro opines likely druge rash. PT consult for gait. sensitivities of urine species noted, antibx changed from keflex to nitrofurantoin x 7 days. 03/31: DC tegretol and start trileptal at a 1:1.5 ratio. pt has tolerated trileptal in the past without adverse reaction. less sedated today, rash looks a bit better. keflex also DCed yesterday but rash appears to have begun prior to first dose of keflex. 04/02 dc trileltap low sodium and also risk of rash-increased gabapentin from 600mg tid to 800mg tid and plenty of prns if gets manic. 04/03: much improved mental status from last week. due either to adequate treatment of UTI with change in antibiotic or DC of tegretol. trileptal DCed over w/e due to hyponatremia; may need to restart trileptal if mood becomes labile/irritable. hyponatremia noted within a day or two of DC of tegretol and start of trileptal, meaning it was due to tegretol rather than trileptal. pt has tolerated trileptal in the past. 04/04: pt clearly more irritable and labile today. restart trileptal at 450 BID. I spent ___25___ minutes with the patient and/or on the patient floor today, greater than?50% of which was spent counseling/coordinating care. Reason for contiued inpatient stay Substantial Risk for: harm to self, harm to others, inability to function and rapid decompensation
[2022-04-04] MEDS: chlorproMAZINE HCl 25 MG TABLET PO (17:14)
[2022-04-04] MEDS: Nicotine Polacrilex Lozenge 2 MG LOZENGE BUCCAL (18:57)
[2022-04-04] MEDS: OXcarbazepine 150 MG TABLET 450 MG PO (20:13)
[2022-04-04] MEDS: Tamsulosin HCL 0.4 MG CAPSULE PO (20:13)
[2022-04-04] MEDS: Lidocaine 4 % Patch ADH..PATCH 1 PATCH TRANSDERMA (20:14)
[2022-04-04] MEDS: diphenhydrAMINE HCL 25 MG TABLET 50 MG PO (20:18)
[2022-04-04 20:30] VITALS: BP 121/71; PULSE 98; RESP 18; TEMP 36.3; O2SAT 95
[2022-04-05] MEDS: Ibuprofen 800 MG TABLET PO ×3 (06:04→22:26)
[2022-04-05] MEDS: Acetaminophen 325 MG TABLET 650 MG PO (06:41)
[2022-04-05] MEDS: LORazepam 1 MG TABLET PO ×2 (06:41→16:25)
[2022-04-05] MEDS: Gabapentin 400 MG CAPSULE 800 MG PO ×3 (06:44→22:25)
--- NOTE | 2022-04-05 07:13 | PC.NURSE ---
Patient slept well through the night waking and having outbursts in his room; aggitated r/t pain; unwilling to discuss pain management with the RN, wanting to be left alone. Maintained on 5 minute checks. Within 10 minutes patient pushing against [employer] doors, then walking down to exit door across from [id number] and slamming against it, Security called and came up and spoke with patient. Patient expressing frustration about pain, wiling to take medication after speaking with Security; PRN APAP and Ativan given. Patient then engaged in conversation with RN and stated Gabapentin was useful, scheduled 9am Gapbapentin given early. Patient remained calm and cooperative and stating needs without outburst, willing to discuss options to deal with the pain with RN; requested to try a foot soak; a warm water soak was set up, patient utilizing at bedside at this time.
[2022-04-05] MEDS: OXcarbazepine 150 MG TABLET 450 MG PO (08:46)
[2022-04-05] MEDS: DULoxetine HCl 60 MG CAPSULE.DR 120 MG PO (08:46)
[2022-04-05] MEDS: oxyCODONE HCl Immed Release 5 MG TABLET PO (08:46)
[2022-04-05] MEDS: Sennosides 8.6 MG TABLET 17.2 MG PO (08:46)
[2022-04-05] MEDS: Benztropine Mesylate 1 MG TABLET PO ×3 (08:46→22:27)
[2022-04-05] MEDS: Docusate Sodium 100 MG CAPSULE PO ×2 (08:46→22:26)
[2022-04-05] MEDS: Perphenazine 8 MG TABLET 16 MG PO ×2 (08:46→22:25)
[2022-04-05] MEDS: predniSONE 10 MG TABLET PO (08:46)
[2022-04-05 09:00] VITALS: BP 120/63; PULSE 81; RESP 18; TEMP 36.6; O2SAT 95
[2022-04-05] MEDS: Hydrocortisone 1 % Ointment 28.35 GM TUBE 1 APPL TOPICAL (11:25)
[2022-04-05] MEDS: Nitrofurantoin Monohyd/M-Cryst 100 MG CAPSULE PO ×2 (11:25→16:17)
--- NOTE | 2022-04-05 12:53 | HO.PSYCHPN ---
Subjective Subjective Date of Service: 04/05/22 Reason For Visit: Psychosis Interim History: calm, cooperative. discuss his rash, which does not appear to be improving and which he now describes as itchy. agrees to continue current mgmt. broaches his recent rage episodes and suggests increasing mood stabilizer is required. pt responds, i'm on steroids and you're going to say my mood stabilizer needs to go up now? he stands and makes his way out of the interview room, saying, i'm sorry, i don't mean to disrespect you, but i can't listen to that right now. per staff, multiple episodes of rage and loss of behavioral control in the past 24H. yelling, swearing at wall in his room. c/o depression, denied anger. later disclosed rage waves. 3 outbursts yesterday. pushing on exit door, refusing to allow roommate. yelling in room at staff. pushing and hitting exit doors. stated he had reached my threshold regarding uncontrolled neck pain. received thorazine and ativan at 5 pm and was noted to be unsteady on his feet at 8 pm. received oxycodone for neck pain. rash still not looking much better. Mental Status Exam Mental Status Exam Narrative: cooperative. general PMR. speech nml in rate, decr in amount, clear. flattened tone, incr latency, decr loudness. thoughts linear and logical. affect constricted, hyper-intense, min-labile. mood irritable. no SI/HI/AVH expressed. Diagnostics Vital Signs (24Hr): Vital Signs - 24 hr 04/04/22 20:30 04/05/22 09:00 Temperature 97.3 F 97.8 F Pulse Rate 98 81 Respiratory Rate 18 18 Blood Pressure 121/71 120/63 Pulse Oximetry 95 95 Oxygen Delivery Method Room Air Room Air BMI result Body Mass Index 29.7 Labs Results: 04/03/22 08:10 04/03/22 08:10 Imaging Radiology Impressions: ITS Impressions Head CT 03/20/22 23:40 IMPRESSION: No acute intracranial pathology. Medications Medications Current Medications Acetaminophen (Acetaminophen 325 Mg Tablet) 650 mg PO Q6H PRN PRN Reason: Headache/Pain Mild Scale (1-3) Last Admin: 04/05/22 06:41 Dose: 650 mg Al Hydroxide/Mg Hydroxide (Magnesium Hydrox/Alum Hydrox 30 Ml Oral.Susp) 30 ml PO Q6H PRN PRN Reason: Heartburn/Nausea Last Admin: 04/04/22 00:42 Dose: 30 ml Benzocaine (Throat Lozenge, Medicated Lozenge) 1 lozenge MUCOUS MEM Q1H PRN PRN Reason: xerostomia Last Admin: 03/27/22 06:10 Dose: 1 lozenge Benztropine Mesylate (Benztropine Mesylate 1 Mg Tablet) 1 mg PO TID [facility] Last Admin: 04/05/22 08:46 Dose: 1 mg Calcium Carbonate (Calcium Carbonate 750 Mg Tab.Chew) 750 mg PO Q4H PRN PRN Reason: Dyspepsia Last Admin: 04/03/22 22:36 Dose: 750 mg Chlorpromazine HCl (Chlorpromazine Hcl 25 Mg Tablet) 25 mg PO Q4H PRN PRN Reason: agitation. Last Admin: 04/04/22 17:14 Dose: 25 mg Diphenhydramine HCl (Diphenhydramine Hcl 25 Mg Tablet) 50 mg PO TID PRN PRN Reason: itching/agitation Last Admin: 04/04/22 20:18 Dose: 50 mg Docusate Sodium (Docusate Sodium 100 Mg Capsule) 100 mg PO BID [facility] Last Admin: 04/05/22 08:46 Dose: 100 mg Duloxetine HCl (Duloxetine Hcl 60 Mg Capsule.Dr) 120 mg PO DAILY [facility] Last Admin: 04/05/22 08:46 Dose: 120 mg Gabapentin (Gabapentin 400 Mg Capsule) 800 mg PO TID [facility] Last Admin: 04/05/22 06:44 Dose: 800 mg Hydrocortisone (Hydrocortisone 1 % Ointment 28.35 Gm Tube) 1 appl TOPICAL BID [facility]; Protocol Last Admin: 04/05/22 11:25 Dose: 1 appl Ibuprofen (Ibuprofen 800 Mg Tablet) 800 mg PO TID [facility] Last Admin: 04/05/22 06:04 Dose: 800 mg Lidocaine (Lidocaine 4 % Patch Adh..Patch) 2 patch TRANSDERMA DAILY PRN; Protocol PRN Reason: low back pain Last Admin: 04/04/22 02:44 Dose: 2 patch Lidocaine (Lidocaine 4 % Patch Adh..Patch) 1 patch TRANSDERMA DAILY PRN; Protocol PRN Reason: shoulder pain Last Admin: 04/04/22 20:14 Dose: 1 patch Lorazepam (Lorazepam 1 Mg Tablet) 1 mg PO Q4H PRN PRN Reason: Anxiety Last Admin: 04/05/22 06:41 Dose: 1 mg Magnesium Hydroxide (Milk Of Magnesia 30 Ml Oral.Susp) 30 ml PO DAILY PRN PRN Reason: Constipation Last Admin: 04/03/22 15:29 Dose: 30 ml Multi-Ingred Medicated Throat [place] (Throat [place], Medicated 20 Ml Bottle) 1 spray MUCOUS MEM Q2H PRN PRN Reason: Sore Throat Last Admin: 03/28/22 11:16 Dose: 1 spray Nicotine Polacrilex (Nicotine Polacrilex 2 Mg Gum) 2 mg BUCCAL Q1H PRN PRN Reason: Nicotine Cravings Nicotine Polacrilex (Nicotine Polacrilex Lozenge 2 Mg Lozenge) 2 mg BUCCAL Q1H PRN PRN Reason: Nicotine Cravings Last Admin: 04/04/22 18:57 Dose: 2 mg Nitrofurantoin Macrocrystals (Nitrofurantoin Monohyd/M-Cryst 100 Mg Capsule) 100 mg PO BIDWM [facility] Stop: 04/06/22 10:19 Last Admin: 04/05/22 11:25 Dose: 100 mg Olanzapine (Olanzapine 10 Mg Vial) 10 mg IM BID PRN PRN Reason: refusal of trilafonstanislav Last Admin: 03/23/22 21:48 Dose: 10 mg Oxcarbazepine (Oxcarbazepine 300 Mg Tablet) 600 mg PO BID [facility] Perphenazine (Perphenazine 8 Mg Tablet) 16 mg PO BID [facility] Last Admin: 04/05/22 08:46 Dose: 16 mg Saliva Substitute (Dry Mouth [place] 60 Ml [place]) 1 spray MUCOUS MEM Q2H PRN PRN Reason: xerostomia Last Admin: 03/28/22 22:16 Dose: 1 spray Senna (Sennosides 8.6 Mg Tablet) 17.2 mg PO DAILY [facility] Last Admin: 04/05/22 08:46 Dose: 17.2 mg Tamsulosin HCl (Tamsulosin Hcl 0.4 Mg Capsule) 0.4 mg PO BEDTIME [facility] Last Admin: 04/04/22 20:13 Dose: 0.4 mg Allergies Allergies Allergy/AdvReac Type Severity Reaction Status Date / Time haloperidol [From HALDOL] Allergy Intermediate UNKNOWN Verified 03/16/22 14:25 Assessment & Plan Assessment & Plan (1) Rash: Status: Acute Code(s): R21 - Rash and other nonspecific skin eruption Assessment and Plan: This rash looks like it is from a medicine like carbamazepine. A typical drug rash could look like this. Stopping carbamazepine was appropriate. Otherwise treatment is conservative in p.r.n. hydroxyzine for itching can be used.04/[address] liz - will try bid ointment hydrocortisone and benadrly for 24 hr if still not improved may need to do combo steroid with ativan/thorazine to limit risk of kristen pt had exposed himself to direct sun without protection spf or appropriate skin covering prior to admit 04/02 continues to have bad full body rash, also sodium was low last checked will dc trileptal and inc gabapentin start steroids today then inc tomorrow then taper- prn ativan and antipsychotic prn any kristen induced by steroid (warned pt of risk) consulted with dr liz sent picture of rash (2) Myelitis: Status: Acute Code(s): G04.91 - Myelitis, unspecified Assessment and Plan: Spinal cord lesion was separate issue and treatment should continue as outlined before pt fairly distressed about this co sciatica and has unstable gait though that may be better discussed with pt not cancer= not progressive- inflammation of myelin (3) Acute psychosis: Status: Acute Code(s): F23 - Brief psychotic disorder Assessment and Plan: no further agitation with walker walking more steady no need 1:1, will move to 5 min checks continue current antipsychotics and prns Plan 03/22: continue outpt meds for now.? t/c ranitidine for GERD, incr in gabapentin for pain, trazodone for sleep.? educate re evidence-based mood stabilizers and attempt to get pt to take one of the three. 03/23: agrees to trial of tegretol in place of trileptal.? trileptal DCed and tegretol started at 600 BID.? perphenazine increased to 16 BID and IM back-ups prescribed.? requesting neuro consult to see if any post-lesion syndrome may account for c/o cramps/pain and if there is anything that may be done to help.? thorazine and ativan PRNs prescribed. 03/24: per neuro consult, no need for further neuro w/u or intervention, pt recovering well from myelitis.? check HIV1&2.? steroid cream for rash, artificial saliva/lozenges Rxed.? encouraged to take tegretol, which he had said he would do yesterday but which he has not done (aside from 200 mg). 03/25: rash Dx as scabies, treated yesterday.? took tegretol 600 this morning and reports improved mood today.? encouraged compliance. 03/26: compliant with tegretol past 24H.? appears a bit sedated today; will decrease PRNs.? crural complaints, referred to hospitalist. 03/28: sedated.? decreasing medications which may cause delirium or sedation.? ativan, baclofen, trazodone, hydroxyzine DCed.? started keflex for UTI.? otherwise previous plan continued.? clearly unsteady on his feet, either sedated or getting delirious. 03/29: Patient less sedated alert not aggressive doing better with less sedating medication continue current treatment plan per Dr. Quiñones. 03/30: taper tegretol as likely offender for the rash. neuro opines likely druge rash. PT consult for gait. sensitivities of urine species noted, antibx changed from keflex to nitrofurantoin x 7 days. 03/31: DC tegretol and start trileptal at a 1:1.5 ratio. pt has tolerated trileptal in the past without adverse reaction. less sedated today, rash looks a bit better. keflex also DCed yesterday but rash appears to have begun prior to first dose of keflex. 04/02 dc trileltap low sodium and also risk of rash-increased gabapentin from 600mg tid to 800mg tid and plenty of prns if gets manic. 04/03: much improved mental status from last week. due either to adequate treatment of UTI with change in antibiotic or DC of tegretol. trileptal DCed over w/e due to hyponatremia; may need to restart trileptal if mood becomes labile/irritable. hyponatremia noted within a day or two of DC of tegretol and start of trileptal, meaning it was due to tegretol rather than trileptal. pt has tolerated trileptal in the past. 04/04: pt clearly more irritable and labile today. restart trileptal at 450 BID. 04/05: several behavioral outbursts in the past 24H. increase trileptal to 600 BID. rash does not appear to be improving. I spent ___25___ minutes with the patient and/or on the patient floor today, greater than?50% of which was spent counseling/coordinating care. Reason for contiued inpatient stay Substantial Risk for: harm to self, harm to others, inability to function and rapid decompensation
--- NOTE | 2022-04-05 14:23 | PM.IDPN ---
Subjective Subjective Date of Service: 04/05/22 Critical Care Time (minutes): 15 Comment: he says rash is worsening and has some discomfort in mouth he has had tegretol switched to trileptal and still not better he has had steroids and still not better. Objective Data Labs CBC & Chem 7: 04/03/22 08:10 04/03/22 08:10 Microbiology Microbiology Results: Microbiology 03/27/22 Unknown Urine clean catch - Urine horowitz top Urine Culture - Final Staphylococcus epidermidis Physical Exam Vital Signs: Vital Signs: Last Vital Signs Temp 97.8 F 04/05/22 09:00 Pulse 81 04/05/22 09:00 Resp 18 04/05/22 09:00 BP 120/63 04/05/22 09:00 Pulse Ox 95 04/05/22 09:00 O2 Del Method 04/05/22 09:00 BMI result Body Mass Index 29.7 Const: General: cooperative HEENT: Mouth: Normal oral and palatal mucosa present (3 mm oral lesion on lower lip,painful) Resp: Effort & Inspection: normal respiratory effort Cardio: Rate: regular rate Rhythm: regular rhythm GI: Palpation (GI): Soft to palpation and nontender Skin: Other: macuopapular rash throughout body,peeling hands Assessment and Plan Assessment and plan (1) Rash: Problem details: rash not improved possible SJS or TEN,possible due to tegretol Status: Acute Assessment and Plan: Continue symptomatic care Skin biopsy punch Surgery evaluate etiology?TEN?SJS Plan Continue symptomatic care Time Spent With Patient Time: Total time spent is greater than 50% in coordination of care (as documented) at patient's floor/unit and/or counseling patient:
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
--- NOTE | 2022-04-05 16:37 | P.CONGS_ITS ---
History of Present Illness Consult details Consult date: 04/05/22 Narrative: 51-year-old male admitted to the psych unit because of acute psychosis, who was noted to have a skin rash. He is not a very good historian so he really does not provide much with regard to details of this history. However, this skin rash has been noted to be all over his body so I had been asked to do a skin biopsy. Review of Systems Constitutional: Constitutional: Denies chills and Denies fever(s) Cardiovascular: Cardiovascular: Denies chest pain, Denies dyspnea and Denies dyspnea on exertion Respiratory: Respiratory: Denies cough, Denies dyspnea and Denies dyspnea on exertion Gastrointestinal: Gastrointestinal: Denies hematochezia and Denies change in bowel habits Genitourinary: Genitourinary: Denies hematuria and Denies difficulty urinating Musculoskeletal: Musculoskeletal: Denies back pain and Denies limited range of motion Neurologic: Denies focal weakness and Denies convulsions Psychiatric: Psychiatric: Reports depression and Reports mood swings PMFSH Past Medical History Medical History (Updated 04/10/22 @ 06:07 by Mckayla Rai) Psychosis Rash Right hemiparesis Schizophrenia Spinal cord lesion Substance abuse Family History Family History Father Medical history unknown Mother Medical history unknown Family history: reviewed and not pertinent Surgical History Surgical History History of liver biopsy Social History Social History Household Members: Other Household Members Other:: Senior Care Housing: Other Housing Other:: Senior Care Do you presently have visiting nurse or other home services: No Unable to assess alcohol history related to: Refusing to respond Alcohol intake: former Patient Tobacco Use Status: Current everyday Tobacco user Tobacco use type: Cigarette Cigarette Packs Per Day: 1 Cigarettes Per Day: 20.0 Smoked in Last 30 Days: Yes e-Cigarette/Vaping Use: Former Use Patient Interested in Nicotine Replacement: Yes (wants gum and lozenge) Patient Given Instructions on How to Stop Smoking: No (not interested) Second Hand Smoke Exposure: Yes Use of substances other than those prescribed or required for medical reasons: Yes Substance Use Type: Crack/Cocaine, Heroin and Marijuana Substance Use Frequency: Occasionally Last Used Substance: Unknown Last Used Substance Other:: Utox positive for marijuana only Currently Displaying Signs/Symptoms of Drug Intoxication Withdrawal: No Any prior treatment program specific to substance use: No Do you feel safe in your current relationship?: No Current Relationship Is there a partner from a previous relationship who is making you feel unsafe now?: No Are you made to feel afraid or neglected: No Spiritual Healthcare Practices: none Yazidi Healthcare Practices: none Cultural Healthcare Practices: none Advance Directives: No Advance Directives Information Provided: No Advance Directives on File: No Do you have thoughts of harming others: None Do you have a plan to hurt others: No Plan Recently lost weight without trying: No Eating poorly because of decreased appetite: No Nutrition Risks: No Nutritional Risk Poor oral hygiene: No service: No Current occupational status: disabled Sexual orientation: Did not discuss. Cognitive needs: No Hearing needs: No Vision needs: No Meds Allergies Allergy/AdvReac Type Severity Reaction Status Date / Time haloperidol [From HALDOL] Allergy Intermediate UNKNOWN Verified 03/16/22 14:25 Active Medications: Current Medications Acetaminophen (Acetaminophen 325 Mg Tablet) 650 mg PO Q6H PRN PRN Reason: Headache/Pain Mild Scale (1-3) Last Admin: 04/05/22 06:41 Dose: 650 mg Al Hydroxide/Mg Hydroxide (Magnesium Hydrox/Alum Hydrox 30 Ml Oral.Susp) 30 ml PO Q6H PRN PRN Reason: Heartburn/Nausea Last Admin: 04/04/22 00:42 Dose: 30 ml Benzocaine (Throat Lozenge, Medicated Lozenge) 1 lozenge MUCOUS MEM Q1H PRN PRN Reason: xerostomia Last Admin: 03/27/22 06:10 Dose: 1 lozenge Benztropine Mesylate (Benztropine Mesylate 1 Mg Tablet) 1 mg PO TID [facility] Last Admin: 04/05/22 16:17 Dose: 1 mg Calcium Carbonate (Calcium Carbonate 750 Mg Tab.Chew) 750 mg PO Q4H PRN PRN Reason: Dyspepsia Last Admin: 04/03/22 22:36 Dose: 750 mg Chlorpromazine HCl (Chlorpromazine Hcl 25 Mg Tablet) 25 mg PO Q4H PRN PRN Reason: agitation. Last Admin: 04/04/22 17:14 Dose: 25 mg Diphenhydramine HCl (Diphenhydramine Hcl 25 Mg Tablet) 50 mg PO TID PRN PRN Reason: itching/agitation Last Admin: 04/04/22 20:18 Dose: 50 mg Docusate Sodium (Docusate Sodium 100 Mg Capsule) 100 mg PO BID [facility] Last Admin: 04/05/22 08:46 Dose: 100 mg Duloxetine HCl (Duloxetine Hcl 60 Mg Capsule.Dr) 120 mg PO DAILY [facility] Last Admin: 04/05/22 08:46 Dose: 120 mg Gabapentin (Gabapentin 400 Mg Capsule) 800 mg PO TID [facility] Last Admin: 04/05/22 16:17 Dose: 800 mg Hydrocortisone (Hydrocortisone 1 % Ointment 28.35 Gm Tube) 1 appl TOPICAL BID [facility]; Protocol Last Admin: 04/05/22 11:25 Dose: 1 appl Ibuprofen (Ibuprofen 800 Mg Tablet) 800 mg PO TID [facility] Last Admin: 04/05/22 16:16 Dose: 800 mg Lidocaine (Lidocaine 4 % Patch Adh..Patch) 2 patch TRANSDERMA DAILY PRN; Protocol PRN Reason: low back pain Last Admin: 04/04/22 02:44 Dose: 2 patch Lidocaine (Lidocaine 4 % Patch Adh..Patch) 1 patch TRANSDERMA DAILY PRN; Protocol PRN Reason: shoulder pain Last Admin: 04/04/22 20:14 Dose: 1 patch Lorazepam (Lorazepam 1 Mg Tablet) 1 mg PO Q4H PRN PRN Reason: Anxiety Last Admin: 04/05/22 16:25 Dose: 1 mg Magnesium Hydroxide (Milk Of Magnesia 30 Ml Oral.Susp) 30 ml PO DAILY PRN PRN Reason: Constipation Last Admin: 04/03/22 15:29 Dose: 30 ml Multi-Ingred Medicated Throat [place] (Throat [place], Medicated 20 Ml Bottle) 1 spray MUCOUS MEM Q2H PRN PRN Reason: Sore Throat Last Admin: 03/28/22 11:16 Dose: 1 spray Nicotine Polacrilex (Nicotine Polacrilex 2 Mg Gum) 2 mg BUCCAL Q1H PRN PRN Reason: Nicotine Cravings Nicotine Polacrilex (Nicotine Polacrilex Lozenge 2 Mg Lozenge) 2 mg BUCCAL Q1H PRN PRN Reason: Nicotine Cravings Last Admin: 04/04/22 18:57 Dose: 2 mg Nitrofurantoin Macrocrystals (Nitrofurantoin Monohyd/M-Cryst 100 Mg Capsule) 100 mg PO BIDWM [facility] Stop: 04/06/22 10:19 Last Admin: 04/05/22 16:17 Dose: 100 mg Olanzapine (Olanzapine 10 Mg Vial) 10 mg IM BID PRN PRN Reason: refusal of stanislav jung Last Admin: 03/23/22 21:48 Dose: 10 mg Oxcarbazepine (Oxcarbazepine 300 Mg Tablet) 600 mg PO BID [facility] Perphenazine (Perphenazine 8 Mg Tablet) 16 mg PO BID [facility] Last Admin: 04/05/22 08:46 Dose: 16 mg Saliva Substitute (Dry Mouth [place] 60 Ml [place]) 1 spray MUCOUS MEM Q2H PRN PRN Reason: xerostomia Last Admin: 03/28/22 22:16 Dose: 1 spray Senna (Sennosides 8.6 Mg Tablet) 17.2 mg PO DAILY [facility] Last Admin: 04/05/22 08:46 Dose: 17.2 mg Tamsulosin HCl (Tamsulosin Hcl 0.4 Mg Capsule) 0.4 mg PO BEDTIME [facility] Last Admin: 04/04/22 20:13 Dose: 0.4 mg Home Medications Medication Instructions Recorded Confirmed Last Taken Type acetaminophen 325 mg tablet 2 tab PO Q6H PRN Pain 03/20/22 03/20/22 Unknown History benztropine 1 mg tablet 1 tab PO TID 03/20/22 03/20/22 Unknown History docusate sodium 100 mg capsule 1 cap PO BID 03/20/22 03/20/22 Unknown History duloxetine 60 mg capsule,delayed 2 cap PO DAILY 03/20/22 03/20/22 Unknown History release gabapentin 300 mg capsule 2 cap PO TID 03/20/22 03/20/22 Unknown History ibuprofen 800 mg tablet 1 tab PO TID 03/20/22 03/20/22 Unknown History oxcarbazepine 600 mg tablet 1 tab PO BID 03/20/22 03/20/22 Unknown History oxycodone 5 mg tablet 1 tab PO Q12H PRN pain 03/20/22 03/20/22 Unknown History perphenazine 2 mg tablet 3 tab PO BID 03/20/22 03/20/22 Unknown History perphenazine 8 mg tablet 1 tab PO BID 03/20/22 03/20/22 Unknown History sennosides 8.6 mg tablet (senna) 2 tab PO DAILY 03/20/22 03/20/22 Unknown History tamsulosin 0.4 mg capsule 1 cap PO BEDTIME 03/20/22 03/20/22 Unknown History trazodone 50 mg tablet 1 tab PO BEDTIME 03/20/22 03/20/22 Unknown History Physical Exam Vital Signs: Vital Signs: Last Vital Signs Temp 97.8 F 04/05/22 09:00 Pulse 81 04/05/22 09:00 Resp 18 04/05/22 09:00 BP 120/63 04/05/22 09:00 Pulse Ox 95 04/05/22 09:00 O2 Del Method 04/05/22 09:00 BMI result Body Mass Index 29.7 Const: Other: Flat affect General: comfortable and no acute distress Orientation/consciousness: patient oriented x3 Neck: Neck: Yes no lymphadenopathy Resp: Auscultation: clear to auscultation bilaterally Cardio: Rhythm: regular rhythm GI: Palpation (GI): Soft to palpation, nontender and no guarding Skin: Other: Diffuse macular papular rash on the torso and extremity and neck Neuro: General: patient oriented x3 Results Labs Result diagrams: 04/10/22 08:24 04/12/22 15:46 Labs: Urine 03/20/22 03/27/22 Range/Units 18:57 07:58 Urine Color YELLOW YELLOW Urine Appearance CLEAR HAZY Urine pH 7.0 7.0 (5.0-8.0) Ur Specific [place] 1.010 1.015 (1.005-1.025) Urine Protein NEG NEG (NEG-TRACE) MG/DL Urine Glucose (UA) NEG NEG (NEG) MG/DL All other labs normal. Assessment and Plan (1) Rash: Status: Acute Plan He has a diffuse maculopapular rash. I had been asked to do a skin biopsy. I explained him the technique of punch biopsy on the left upper arm. I reviewed the risks, benefits, and alternatives. He had given verbal consent. This was witnessed by the nursing staff An area of the left upper arm with a rash was prepped and draped. Lidocaine 1% was used for local anesthesia. I used a skin punch biopsy to excise skin and part of the subcutaneous layer. This was sent as a specimen I applied dry dressings. His dressings may be changed once a day and a Band-Aid may be used. He should keep the area clean and dry for at least 24 hours. We will await for the path report as well. Procedures Date of Service Date of Service: 04/05/22 Procedure Note Procedure Note: Preop diagnosis: Skin rash Postop diagnosis: Skin rash Procedure: Punch bite biopsy, skin, left upper arm He was placed supine. An area of the left upper arm was prepped and draped. Lidocaine 1% was used for local anesthesia. I used a punch biopsy to excise skin and subcutaneous layer. This was sent as specimen. I applied dry dressings. He was given wound care instructions. He tolerated procedure well. There were no complications noted. Verbal consent was given by the patient and witnessed by the nursing staff. He understood the technique of the planned procedure as well as the risks, benefits, and alternatives
[2022-04-05] MEDS: diphenhydrAMINE HCL 25 MG TABLET 50 MG PO (18:14)
[2022-04-05 20:24] VITALS: BP 115/61; PULSE 88; RESP 16; TEMP 36.7; O2SAT 96
[2022-04-05] MEDS: Calcium Carbonate 750 MG TAB.CHEW PO (21:18)
[2022-04-05] MEDS: Tamsulosin HCL 0.4 MG CAPSULE PO (22:25)
[2022-04-05] MEDS: OXcarbazepine 300 MG TABLET 600 MG PO (22:25)
[2022-04-06 07:00] VITALS: BMI 29.4
[2022-04-06] MEDS: oxyCODONE HCl Immed Release 5 MG TABLET PO ×2 (07:55→21:57)
[2022-04-06 08:00] VITALS: BP 120/66; PULSE 81; TEMP 36.8; O2SAT 100
[2022-04-06] MEDS: OXcarbazepine 300 MG TABLET 600 MG PO ×2 (08:43→21:53)
[2022-04-06] MEDS: Sennosides 8.6 MG TABLET 17.2 MG PO (08:44)
[2022-04-06] MEDS: Benztropine Mesylate 1 MG TABLET PO ×3 (08:45→21:54)
[2022-04-06] MEDS: Perphenazine 8 MG TABLET 16 MG PO ×2 (08:46→21:54)
[2022-04-06] MEDS: Gabapentin 400 MG CAPSULE 800 MG PO ×3 (08:46→21:54)
[2022-04-06] MEDS: DULoxetine HCl 60 MG CAPSULE.DR 120 MG PO (08:47)
[2022-04-06] MEDS: Docusate Sodium 100 MG CAPSULE PO ×2 (08:47→21:54)
[2022-04-06] MEDS: Ibuprofen 800 MG TABLET PO ×3 (08:47→21:54)
[2022-04-06] MEDS: Nitrofurantoin Monohyd/M-Cryst 100 MG CAPSULE PO (08:48)
[2022-04-06] MEDS: diphenhydrAMINE HCL 25 MG TABLET 50 MG PO ×2 (08:50→23:21)
--- NOTE | 2022-04-06 12:48 | P.PNPSI_ITS ---
Subjective Subjective Date of Service: 04/06/22 Reason For Visit: Psychosis Interim History: found lying in bed late morning. receptive to MD's visit, thanks MD for his time. no expression of anger toward MD today. c/o pain in his neck, no other complaints or requests. reports rash seems neither better nor worse. per staff, was angry yesterday morning, settled later. c/o various pains. eating well. not attending groups. flipped tray twice yesterday during moments of frustration. biopsy of R arm completed. 6 pm was pounding on exit doors, pleasant later in the evening. Mental Status Exam Mental Status Exam Narrative: cooperative. general PMR. speech nml in rate, decr in amount, clear. flattened tone, incr latency, decr loudness. thoughts linear and logical. affect constricted, normo-intense, non-labile. mood not assessed. no SI/HI/AVH expressed. Diagnostics Vital Signs (24Hr): Vital Signs - 24 hr 04/05/22 20:24 04/06/22 08:00 Temperature 98.1 F 98.2 F Pulse Rate 88 81 Respiratory Rate 16 Blood Pressure 115/61 120/66 Pulse Oximetry 96 100 Oxygen Delivery Method Room Air Room Air BMI result Body Mass Index 29.4 Labs Results: 04/03/22 08:10 04/03/22 08:10 Imaging Radiology Impressions: ITS Impressions Head CT 03/20/22 23:40 IMPRESSION: No acute intracranial pathology. Medications Medications Current Medications Acetaminophen (Acetaminophen 325 Mg Tablet) 650 mg PO Q6H PRN PRN Reason: Headache/Pain Mild Scale (1-3) Last Admin: 04/05/22 06:41 Dose: 650 mg Al Hydroxide/Mg Hydroxide (Magnesium Hydrox/Alum Hydrox 30 Ml Oral.Susp) 30 ml PO Q6H PRN PRN Reason: Heartburn/Nausea Last Admin: 04/04/22 00:42 Dose: 30 ml Benzocaine (Throat Lozenge, Medicated Lozenge) 1 lozenge MUCOUS MEM Q1H PRN PRN Reason: xerostomia Last Admin: 03/27/22 06:10 Dose: 1 lozenge Benztropine Mesylate (Benztropine Mesylate 1 Mg Tablet) 1 mg PO TID CHANDA Last Admin: 04/06/22 08:45 Dose: 1 mg Calcium Carbonate (Calcium Carbonate 750 Mg Tab.Chew) 750 mg PO Q4H PRN PRN Reason: Dyspepsia Last Admin: 04/05/22 21:18 Dose: 750 mg Chlorpromazine HCl (Chlorpromazine Hcl 25 Mg Tablet) 25 mg PO Q4H PRN PRN Reason: agitation. Last Admin: 04/04/22 17:14 Dose: 25 mg Diphenhydramine HCl (Diphenhydramine Hcl 25 Mg Tablet) 50 mg PO TID PRN PRN Reason: itching/agitation Last Admin: 04/06/22 08:50 Dose: 50 mg Docusate Sodium (Docusate Sodium 100 Mg Capsule) 100 mg PO BID [facility] Last Admin: 04/06/22 08:47 Dose: 100 mg Duloxetine HCl (Duloxetine Hcl 60 Mg Capsule.Dr) 120 mg PO DAILY [facility] Last Admin: 04/06/22 08:47 Dose: 120 mg Gabapentin (Gabapentin 400 Mg Capsule) 800 mg PO TID [facility] Last Admin: 04/06/22 08:46 Dose: 800 mg Hydrocortisone (Hydrocortisone 1 % Ointment 28.35 Gm Tube) 1 appl TOPICAL BID [facility]; Protocol Last Admin: 04/06/22 09:00 Dose: Not Given Ibuprofen (Ibuprofen 800 Mg Tablet) 800 mg PO TID [facility] Last Admin: 04/06/22 08:47 Dose: 800 mg Lidocaine (Lidocaine 4 % Patch Adh..Patch) 2 patch TRANSDERMA DAILY PRN; Protocol PRN Reason: low back pain Last Admin: 04/04/22 02:44 Dose: 2 patch Lidocaine (Lidocaine 4 % Patch Adh..Patch) 1 patch TRANSDERMA DAILY PRN; Prot ocol PRN Reason: shoulder pain Last Admin: 04/04/22 20:14 Dose: 1 patch Lorazepam (Lorazepam 1 Mg Tablet) 1 mg PO Q4H PRN PRN Reason: Anxiety Last Admin: 04/05/22 16:25 Dose: 1 mg Magnesium Hydroxide (Milk Of Magnesia 30 Ml Oral.Susp) 30 ml PO DAILY PRN PRN Reason: Constipation Last Admin: 04/03/22 15:29 Dose: 30 ml Multi-Ingred Medicated Throat [place] (Throat [place], Medicated 20 Ml Bottle) 1 spray MUCOUS MEM Q2H PRN PRN Reason: Sore Throat Last Admin: 03/28/22 11:16 Dose: 1 spray Nicotine Polacrilex (Nicotine Polacrilex 2 Mg Gum) 2 mg BUCCAL Q1H PRN PRN Reason: Nicotine Cravings Nicotine Polacrilex (Nicotine Polacrilex Lozenge 2 Mg Lozenge) 2 mg BUCCAL Q1H PRN PRN Reason: Nicotine Cravings Last Admin: 04/04/22 18:57 Dose: 2 mg Olanzapine (Olanzapine 10 Mg Vial) 10 mg IM BID PRN PRN Reason: refusal of carollastanislav moya Last Admin: 03/23/22 21:48 Dose: 10 mg Oxcarbazepine (Oxcarbazepine 300 Mg Tablet) 600 mg PO BID [facility] Last Admin: 04/06/22 08:43 Dose: 600 mg Oxycodone HCl (Oxycodone Hcl Immed Release 5 Mg Tablet) 5 mg PO Q12H PRN PRN Reason: severe pain Last Admin: 04/06/22 07:55 Dose: 5 mg Perphenazine (Perphenazine 8 Mg Tablet) 16 mg PO BID [facility] Last Admin: 04/06/22 08:46 Dose: 16 mg Saliva Substitute (Dry Mouth [place] 60 Ml [place]) 1 spray MUCOUS MEM Q2H PRN PRN Reason: xerostomia Last Admin: 03/28/22 22:16 Dose: 1 spray Senna (Sennosides 8.6 Mg Tablet) 17.2 mg PO DAILY [facility] Last Admin: 04/06/22 08:44 Dose: 17.2 mg Tamsulosin HCl (Tamsulosin Hcl 0.4 Mg Capsule) 0.4 mg PO BEDTIME [facility] Last Admin: 04/05/22 22:25 Dose: 0.4 mg Allergies Allergies Allergy/AdvReac Type Severity Reaction Status Date / Time haloperidol [From HALDOL] Allergy Intermediate UNKNOWN Verified 03/16/22 14:25 Assessment & Plan Assessment & Plan (1) Rash: Status: Acute Code(s): R21 - Rash and other nonspecific skin eruption Assessment and Plan: per neuro and psych w/e coverage: This rash looks like it is from a medicine like carbamazepine.? A typical drug rash could look like this.? Stopping carbamazepine was appropriate.? Otherwise treatment is conservative in p.r.n. hydroxyzine for itching can be used.04/[address] liz - will try bid ointment hydrocortisone and benadrly for 24 hr if still not improved may need to do combo steroid with ativan/thorazine to limit risk of kristen pt had exposed himself to direct sun without protection spf or appropriate skin covering? prior to admit 04/02 continues to have bad full body rash, also sodium was low last checked will dc trileptal and inc gabapentin start steroids today then inc tomorrow then taper- prn ativan and antipsychotic prn any kristen induced by steroid (warned pt of risk) consulted with dr liz sent picture of rash surgery, 04/05: He has a diffuse maculopapular rash. I had been asked to do a skin biopsy. I explained him the technique of punch biopsy on the left upper arm. I reviewed the risks, benefits, and alternatives. He had given verbal consent. This was witnessed by the nursing staff An area of the left upper arm with a rash was prepped and draped. Lidocaine 1% was used for local anesthesia. I used a skin punch biopsy to excise skin and part of the subcutaneous layer. This was sent as a specimen I applied dry dressings. His dressings may be changed once a day and a Band-Aid may be used. He should keep the area clean and dry for at least 24 hours. We will await for the path report as well. (2) Kristen: Status: Acute Code(s): F30.9 - Manic episode, unspecified (3) Cervical myelopathy: Status: Acute Code(s): G95.9 - Disease of spinal cord, unspecified Assessment and Plan: Spinal cord lesion was separate issue and treatment should continue as outlined before pt fairly distressed about this co sciatica and has unstable gait though that may be better discussed with pt not cancer= not progressive- inflammation of myelin (4) Opioid use disorder: Status: Acute Code(s): F11.90 - Opioid use, unspecified, uncomplicated Assessment and Plan: per Trinidad Gutierrez, 04/05: * This bond writer consulted with opioid treatment provider in the community, awaiting response back as to whether this patient is an appropriate candidate to start methadone and transition to their program outpatient * Will follow-up once determinations main * Still has the option for Vivitrol or sublocade if he wishes to go down that route Plan 03/22: continue outpt meds for now.? t/c ranitidine for GERD, incr in gabapentin for pain, trazodone for sleep.? educate re evidence-based mood stabilizers and attempt to get pt to take one of the three. 03/23: agrees to trial of tegretol in place of trileptal.? trileptal DCed and tegretol started at 600 BID.? perphenazine increased to 16 BID and IM back-ups prescribed.? requesting neuro consult to see if any post-lesion syndrome may account for c/o cramps/pain and if there is anything that may be done to help.? thorazine and ativan PRNs prescribed. 03/24: per neuro consult, no need for further neuro w/u or intervention, pt recovering well from myelitis.? check HIV1&2.? steroid cream for rash, artificial saliva/lozenges Rxed.? encouraged to take tegretol, which he had said he would do yesterday but which he has not done (aside from 200 mg). 03/25: rash Dx as scabies, treated yesterday.? took tegretol 600 this morning and reports improved mood today.? encouraged compliance. 03/26: compliant with tegretol past 24H.? appears a bit sedated today; will decrease PRNs.? crural complaints, referred to hospitalist. 03/28: sedated.? decreasing medications which may cause delirium or sedation.? ativan, baclofen, trazodone, hydroxyzine DCed.? started keflex for UTI.? otherwise previous plan continued.? clearly unsteady on his feet, either sedated or getting delirious. 03/29: Patient less sedated alert not aggressive doing better with less sedating medication continue current treatment plan per Dr. Quiñones. 03/30: taper tegretol as likely offender for the rash.? neuro opines likely druge rash.? PT consult for gait.? sensitivities of urine species noted, antibx changed from keflex to nitrofurantoin x 7 days. 03/31: DC tegretol and start trileptal at a 1:1.5 ratio.? pt has tolerated trileptal in the past without adverse reaction.? less sedated today, rash looks a bit better.? keflex also DCed yesterday but rash appears to have begun prior to first dose of keflex. 04/02 dc trileltap low sodium and also risk of rash-increased gabapentin from 600mg tid to 800mg tid and plenty of prns if gets manic. 04/03: much improved mental status from last week.? due either to adequate treatment of UTI with change in antibiotic or DC of tegretol.? trileptal DCed over w/e due to hyponatremia; may need to restart trileptal if mood becomes labile/irritable.? hyponatremia noted within a day or two of DC of tegretol and start of trileptal, meaning it was due to tegretol rather than trileptal.? pt has tolerated trileptal in the past. 04/04: pt clearly more irritable and labile today.? restart trileptal at 450 BID. 04/05: several behavioral outbursts in the past 24H.? increase trileptal to 600 BID.? rash does not appear to be improving. 04/06: skin Bx taken. rash stable. appears less irritable today. no change to mgmt. I spent ___25___ minutes with the patient and/or on the patient floor today, greater than?50% of which was spent counseling/coordinating care. Reason for contiued inpatient stay Substantial Risk for: inability to function and rapid decompensation
[2022-04-06] MEDS: Tamsulosin HCL 0.4 MG CAPSULE PO (21:54)
[2022-04-06] MEDS: LORazepam 1 MG TABLET PO (21:57)
[2022-04-06 22:07] VITALS: BP 128/63; PULSE 85; RESP 18; TEMP 36.6; O2SAT 98
[2022-04-07] MEDS: Gabapentin 400 MG CAPSULE 800 MG PO ×3 (07:43→20:20)
[2022-04-07] MEDS: Ibuprofen 800 MG TABLET PO ×3 (07:43→20:17)
[2022-04-07] MEDS: diphenhydrAMINE HCL 25 MG TABLET 50 MG PO ×2 (07:54→18:52)
[2022-04-07 08:00] VITALS: BP 124/58; PULSE 90; RESP 18; TEMP 36.8; O2SAT 99
[2022-04-07] MEDS: oxyCODONE HCl Immed Release 5 MG TABLET PO ×2 (10:10→22:47)
[2022-04-07] MEDS: Nicotine Polacrilex Lozenge 2 MG LOZENGE BUCCAL (14:16)
--- NOTE | 2022-04-07 14:47 | HO.PSYCHPN ---
Subjective Subjective Date of Service: 04/07/22 Reason For Visit: Psychosis Interim History: CTSP prior to rounds due to erythematous head/face and hands, with fingers notably cool. erythema blanching. hands swollen. this is a change in the past 24 H. pt denies any other change in symptoms or circumstance. pt took only gabapentin and ibuprofen this morning out of concern this is a medication effect. c/o pain in arm, neck, shoulder waking him up in the night and messing with my mental health. informed ANNA jackson of numb hands ever since he had a procedure here as well. no notable report of overnight behaviors. informed ID and hospitalist consults had been ordered to review his dermatological condition. Mental Status Exam Mental Status Exam Narrative: cooperative. less PMR. speech nml in rate, decr in amount, clear. flattened tone, nml latency, nml loudness. thoughts linear and logical. affect constricted, normo-intense, non-labile. mood not assessed. no SI/HI/AVH expressed. Diagnostics Vital Signs (24Hr): Vital Signs - 24 hr 04/06/22 22:07 Temperature 97.9 F Pulse Rate 85 Respiratory Rate 18 Blood Pressure 128/63 Pulse Oximetry 98 BMI result Body Mass Index 29.4 Labs Results: 04/03/22 08:10 04/03/22 08:10 Imaging Radiology Impressions: ITS Impressions Head CT 03/20/22 23:40 IMPRESSION: No acute intracranial pathology. Medications Medications Current Medications Acetaminophen (Acetaminophen 325 Mg Tablet) 650 mg PO Q6H PRN PRN Reason: Headache/Pain Mild Scale (1-3) Last Admin: 04/05/22 06:41 Dose: 650 mg Al Hydroxide/Mg Hydroxide (Magnesium Hydrox/Alum Hydrox 30 Ml Oral.Susp) 30 ml PO Q6H PRN PRN Reason: Heartburn/Nausea Last Admin: 04/04/22 00:42 Dose: 30 ml Benzocaine (Throat Lozenge, Medicated Lozenge) 1 lozenge MUCOUS MEM Q1H PRN PRN Reason: xerostomia Last Admin: 03/27/22 06:10 Dose: 1 lozenge Benztropine Mesylate (Benztropine Mesylate 1 Mg Tablet) 1 mg PO TID [facility]ANDA Last Admin: 04/07/22 14:29 Dose: Not Given Calcium Carbonate (Calcium Carbonate 750 Mg Tab.Chew) 750 mg PO Q4H PRN PRN Reason: Dyspepsia Last Admin: 04/05/22 21:18 Dose: 750 mg Chlorpromazine HCl (Chlorpromazine Hcl 25 Mg Tablet) 25 mg PO Q4H PRN PRN Reason: agitation. Last Admin: 04/04/22 17:14 Dose: 25 mg Diphenhydramine HCl (Diphenhydramine Hcl 25 Mg Tablet) 50 mg PO TID PRN PRN Reason: itching/agitation Last Admin: 04/07/22 07:54 Dose: 50 mg Docusate Sodium (Docusate Sodium 100 Mg Capsule) 100 mg PO BID [facility] Last Admin: 04/07/22 11:12 Dose: Not Given Duloxetine HCl (Duloxetine Hcl 60 Mg Capsule.Dr) 120 mg PO DAILY [facility] Last Admin: 04/07/22 11:12 Dose: Not Given Gabapentin (Gabapentin 400 Mg Capsule) 800 mg PO TID [facility] Last Admin: 04/07/22 14:16 Dose: 800 mg Hydrocortisone (Hydrocortisone 1 % Ointment 28.35 Gm Tube) 1 appl TOPICAL BID [facility]; Protocol Last Admin: 04/07/22 11:12 Dose: Not Given Ibuprofen (Ibuprofen 800 Mg Tablet) 800 mg PO TID [facility] Last Admin: 04/07/22 14:16 Dose: 800 mg Lidocaine (Lidocaine 4 % Patch Adh..Patch) 2 patch TRANSDERMA DAILY PRN; Protocol PRN Reason: low back pain Last Admin: 04/04/22 02:44 Dose: 2 patch Lidocaine (Lidocaine 4 % Patch Adh..Patch) 1 patch TRANSDERMA DAILY PRN; Protocol PRN Reason: shoulder pain Last Admin: 04/04/22 20:14 Dose: 1 patch Magnesium Hydroxide (Milk Of Magnesia 30 Ml Oral.Susp) 30 ml PO DAILY PRN PRN Reason: Constipation Last Admin: 04/03/22 15:29 Dose: 30 ml Multi-Ingred Medicated Throat [place] (Throat [place], Medicated 20 Ml Bottle) 1 spray MUCOUS MEM Q2H PRN PRN Reason: Sore Throat Last Admin: 03/28/22 11:16 Dose: 1 spray Nicotine Polacrilex (Nicotine Polacrilex 2 Mg Gum) 2 mg BUCCAL Q1H PRN PRN Reason: Nicotine Cravings Nicotine Polacrilex (Nicotine Polacrilex Lozenge 2 Mg Lozenge) 2 mg BUCCAL Q1H PRN PRN Reason: Nicotine Cravings Last Admin: 04/07/22 14:16 Dose: 2 mg Olanzapine (Olanzapine 10 Mg Vial) 10 mg IM BID PRN PRN Reason: refusal of stanislav jung Last Admin: 03/23/22 21:48 Dose: 10 mg Oxcarbazepine (Oxcarbazepine 300 Mg Tablet) 600 mg PO BID [facility] Last Admin: 04/07/22 11:12 Dose: Not Given Oxycodone HCl (Oxycodone Hcl Immed Release 5 Mg Tablet) 5 mg PO Q12H PRN PRN Reason: severe pain Last Admin: 04/07/22 10:10 Dose: 5 mg Perphenazine (Perphenazine 8 Mg Tablet) 16 mg PO BID [facility] Last Admin: 04/07/22 11:12 Dose: Not Given Saliva Substitute (Dry Mouth [place] 60 Ml [place]) 1 spray MUCOUS MEM Q2H PRN PRN Reason: xerostomia Last Admin: 03/28/22 22:16 Dose: 1 spray Senna (Sennosides 8.6 Mg Tablet) 17.2 mg PO DAILY [facility] Last Admin: 04/07/22 11:12 Dose: Not Given Tamsulosin HCl (Tamsulosin Hcl 0.4 Mg Capsule) 0.4 mg PO BEDTIME [facility] Last Admin: 04/06/22 21:54 Dose: 0.4 mg Allergies Allergies Allergy/AdvReac Type Severity Reaction Status Date / Time haloperidol [From HALDOL] Allergy Intermediate UNKNOWN Verified 03/16/22 14:25 Assessment & Plan Assessment & Plan (1) Rash: Status: Acute Code(s): R21 - Rash and other nonspecific skin eruption Assessment and Plan: per neuro and psych w/e coverage: This rash looks like it is from a medicine like carbamazepine.? A typical drug rash could look like this.? Stopping carbamazepine was appropriate.? Otherwise treatment is conservative in p.r.n. hydroxyzine for itching can be used.04/[address] liz - will try bid ointment hydrocortisone and benadrly for 24 hr if still not improved may need to do combo steroid with ativan/thorazine to limit risk of kristen pt had exposed himself to direct sun without protection spf or appropriate skin covering? prior to admit 04/02 continues to have bad full body rash, also sodium was low last checked will dc trileptal and inc gabapentin start steroids today then inc tomorrow then taper- prn ativan and antipsychotic prn any kristen induced by steroid (warned pt of risk) consulted with dr liz sent picture of rash surgery, 04/05: He has a diffuse maculopapular rash. I had been asked to do a skin biopsy. I explained him the technique of punch biopsy on the left upper arm. I reviewed the risks, benefits, and alternatives. He had given verbal consent. This was witnessed by the nursing staff An area of the left upper arm with a rash was prepped and draped. Lidocaine 1% was used for local anesthesia. I used a skin punch biopsy to excise skin and part of the subcutaneous layer. This was sent as a specimen I applied dry dressings. His dressings may be changed once a day and a Band-Aid may be used. He should keep the area clean and dry for at least 24 hours. We will await for the path report as well. 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 t/c ranitidine for GERD, incr in gabapentin for pain, trazodone for sleep.? educate re evidence-based mood stabilizers and attempt to get pt to take one of the three. 03/23: agrees to trial of tegretol in place of trileptal.? trileptal DCed and tegretol started at 600 BID.? perphenazine increased to 16 BID and IM back-ups prescribed.? requesting neuro consult to see if any post-lesion syndrome may account for c/o cramps/pain and if there is anything that may be done to help.? thorazine and ativan PRNs prescribed. 03/24: per neuro consult, no need for further neuro w/u or intervention, pt recovering well from myelitis.? check HIV1&2.? steroid cream for rash, artificial saliva/lozenges Rxed.? encouraged to take tegretol, which he had said he would do yesterday but which he has not done (aside from 200 mg). 03/25: rash Dx as scabies, treated yesterday.? took tegretol 600 this morning and reports improved mood today.? encouraged compliance. 03/26: compliant with tegretol past 24H.? appears a bit sedated today; will decrease PRNs.? crural complaints, referred to hospitalist. 03/28: sedated.? decreasing medications which may cause delirium or sedation.? ativan, baclofen, trazodone, hydroxyzine DCed.? started keflex for UTI.? otherwise previous plan continued.? clearly unsteady on his feet, either sedated or getting delirious. 03/29: Patient less sedated alert not aggressive doing better with less sedating medication continue current treatment plan per Dr. Quiñones. 03/30: taper tegretol as likely offender for the rash.? neuro opines likely druge rash.? PT consult for gait.? sensitivities of urine species noted, antibx changed from keflex to nitrofurantoin x 7 days. 03/31: DC tegretol and start trileptal at a 1:1.5 ratio.? pt has tolerated trileptal in the past without adverse reaction.? less sedated today, rash looks a bit better.? keflex also DCed yesterday but rash appears to have begun prior to first dose of keflex. 04/02 dc trileltap low sodium and also risk of rash-increased gabapentin from 600mg tid to 800mg tid and plenty of prns if gets manic. 04/03: much improved mental status from last week.? due either to adequate treatment of UTI with change in antibiotic or DC of tegretol.? trileptal DCed over w/e due to hyponatremia; may need to restart trileptal if mood becomes labile/irritable.? hyponatremia noted within a day or two of DC of tegretol and start of trileptal, meaning it was due to tegretol rather than trileptal.? pt has tolerated trileptal in the past. 04/04: pt clearly more irritable and labile today.? restart trileptal at 450 BID. 04/05: several behavioral outbursts in the past 24H.? increase trileptal to 600 BID.? rash does not appear to be improving. 04/06: skin Bx taken. rash stable. appears less irritable today. no change to mgmt. 04/07: awaiting Bx results. new/worsened dermatologic condition of blanching deep erythema of head and hands. ID and hospitalists consulted to evaluate. initial rash started by 03/24, prior to any new medications. pt has been on current meds in the past without side effects. rash suggests drug reaction, however. does not appear SJS or TEN-like. initial rash appears as exanthematous rash while secondary rash of the past 24H looks more as if cutaneous small vessel vasculitis rash. I spent ___45___ minutes with the patient and/or on the patient floor today, greater than?50% of which was spent counseling/coordinating care. Reason for contiued inpatient stay Substantial Risk for: harm to self, inability to function, rapid decompensation and med/psych decompensation
--- NOTE | 2022-04-07 16:34 | P.PNIM_ITS ---
Subjective Subjective Date of Service: 04/09/22 Interval History: F/u on rash I saw this patient on 03/24/22 for a rash that at that time was localized to his hand and palm--see pictures then. The appearance of the rash was that of scabies and was treated as such. Unfortunately the rash has not resolved and infact has spread to become a morbiliform rash covering his body, face.. See pictures..The rash was biopsied by surgery on 04/06 and result is pending. He has not fever or chills, not itchy and there is no system illness. Review of Systems Gen: no fever Resp: no sob, no cough CV: no chest, no MADDEN, no leg edema GI: No n/v, no abd pain Neuro: No confusion Skin: Review of Systems: Yes all other systems are reviewed and are negative Physical Exam Vital Signs: Vital Signs: Last Vital Signs Temp 98.2 F 04/07/22 08:00 Pulse 90 04/07/22 08:00 Resp 18 04/07/22 08:00 BP 124/58 L 04/07/22 08:00 Pulse Ox 99 04/07/22 08:00 O2 Del Method 04/07/22 08:00 BMI result Body Mass Index 29.4 Const: Other: General: AO X 3, no acute distress Resp: CTA bilateral CVS: S1,S2,RRR GI: +BS, NT, no distention Skin: Mrbiliform rash involving nearly all body sparing scalp and face.. Neuro: motor grossly intact Psych: appropriate affect Objective Data Active Medications Acetaminophen (Acetaminophen 325 Mg Tablet) 650 mg PO Q6H PRN PRN Reason: Headache/Pain Mild Scale (1-3) Last Admin: 04/05/22 06:41 Dose: 650 mg Documented By: ZULAY Al Hydroxide/Mg Hydroxide (Magnesium Hydrox/Alum Hydrox 30 Ml Oral.Susp) 30 ml PO Q6H PRN PRN Reason: Heartburn/Nausea Last Admin: 04/04/22 00:42 Dose: 30 ml Documented By: HARSHIL Benzocaine (Throat Lozenge, Medicated Lozenge) 1 lozenge MUCOUS MEM Q1H PRN PRN Reason: xerostomia Last Admin: 03/27/22 06:10 Dose: 1 lozenge Documented By: HO.FLEMINM Benztropine Mesylate (Benztropine Mesylate 1 Mg Tablet) 1 mg PO TID [facility] Last Admin: 04/07/22 14:29 Dose: Not Given Documented By: DANYA Non-Admin Reason: Physician Held Med Calcium Carbonate (Calcium Carbonate 750 Mg Tab.Chew) 750 mg PO Q4H PRN PRN Reason: Dyspepsia Last Admin: 04/05/22 21:18 Dose: 750 mg Documented By: FLEMINM Chlorpromazine HCl (Chlorpromazine Hcl 25 Mg Tablet) 25 mg PO Q4H PRN PRN Reason: agitation. Last Admin: 04/04/22 17:14 Dose: 25 mg Documented By: LEETEL Diphenhydramine HCl (Diphenhydramine Hcl 25 Mg Tablet) 50 mg PO TID PRN PRN Reason: itching/agitation Last Admin: 04/07/22 07:54 Dose: 50 mg Documented By: DANYA Docusate Sodium (Docusate Sodium 100 Mg Capsule) 100 mg PO BID [facility] Last Admin: 04/07/22 11:12 Dose: Not Given Documented By: DANYA Non-Admin Reason: Physician Held Med Duloxetine HCl (Duloxetine Hcl 60 Mg Capsule.Dr) 120 mg PO DAILY [facility] Last Admin: 04/07/22 11:12 Dose: Not Given Documented By: DANYA Non-Admin Reason: Physician Held Med Gabapentin (Gabapentin 400 Mg Capsule) 800 mg PO TID [facility] Last Admin: 04/07/22 14:16 Dose: 800 mg Documented By: DANYA Hydrocortisone (Hydrocortisone 1 % Ointment 28.35 Gm Tube) 1 appl TOPICAL BID [facility]; Protocol Last Admin: 04/07/22 11:12 Dose: Not Given Documented By: DANYA Non-Admin Reason: Physician Held Med Ibuprofen (Ibuprofen 800 Mg Tablet) 800 mg PO TID [facility] Last Admin: 04/07/22 14:16 Dose: 800 mg Documented By: DANYA Lidocaine (Lidocaine 4 % Patch Adh..Patch) 2 patch TRANSDERMA DAILY PRN; Protocol PRN Reason: low back pain Last Admin: 04/04/22 02:44 Dose: 2 patch Documented By: ROSEMARIE Lidocaine (Lidocaine 4 % Patch Adh..Patch) 1 patch TRANSDERMA DAILY PRN; Protocol PRN Reason: shoulder pain Last Admin: 04/04/22 20:14 Dose: 1 patch Documented By: ADRIANA Magnesium Hydroxide (Milk Of Magnesia 30 Ml Oral.Susp) 30 ml PO DAILY PRN PRN Reason: Constipation Last Admin: 04/03/22 15:29 Dose: 30 ml Documented By: YOAV Multi-Ingred Medicated Throat [place] (Throat [place], Medicated 20 Ml Bottle) 1 spray MUCOUS MEM Q2H PRN PRN Reason: Sore Throat Last Admin: 03/28/22 11:16 Dose: 1 spray Documented By: DENAE Nicotine Polacrilex (Nicotine Polacrilex 2 Mg Gum) 2 mg BUCCAL Q1H PRN PRN Reason: Nicotine Cravings Nicotine Polacrilex (Nicotine Polacrilex Lozenge 2 Mg Lozenge) 2 mg BUCCAL Q1H PRN PRN Reason: Nicotine Cravings Last Admin: 04/07/22 14:16 Dose: 2 mg Documented By: DANYA Olanzapine (Olanzapine 10 Mg Vial) 10 mg IM BID PRN PRN Reason: refusal of trilafostanislav bee Last Admin: 03/23/22 21:48 Dose: 10 mg Documented By: CLARITA Oxcarbazepine (Oxcarbazepine 300 Mg Tablet) 600 mg PO BID [facility] Last Admin: 04/07/22 11:12 Dose: Not Given Documented By: DANYA Non-Admin Reason: Physician Held Med Oxycodone HCl (Oxycodone Hcl Immed Release 5 Mg Tablet) 5 mg PO Q12H PRN PRN Reason: severe pain Last Admin: 04/07/22 10:10 Dose: 5 mg Documented By: JEFF Perphenazine (Perphenazine 8 Mg Tablet) 16 mg PO BID [facility] Last Admin: 04/07/22 11:12 Dose: Not Given Documented By: DANYA Non-Admin Reason: Physician Held Med Saliva Substitute (Dry Mouth [place] 60 Ml [place]) 1 spray MUCOUS MEM Q2H PRN PRN Reason: xerostomia Last Admin: 03/28/22 22:16 Dose: 1 spray Documented By: CLARITA Senna (Sennosides 8.6 Mg Tablet) 17.2 mg PO DAILY [facility] Last Admin: 04/07/22 11:12 Dose: Not Given Documented By: DANYA Non-Admin Reason: Physician Held Med Tamsulosin HCl (Tamsulosin Hcl 0.4 Mg Capsule) 0.4 mg PO BEDTIME [facility] Last Admin: 04/06/22 21:54 Dose: 0.4 mg Documented By: DENAE Labs CBC & Chem 7: 04/09/22 07:36 04/09/22 07:36 Assessment and Plan (1) Rash: Status: Acute Plan Rash initially treated as scabies but has since expanded to all body.. Biopsy done 04/06 no result, medication reviewed. Infectious disease has seen patient and there is no evidence that is infectios in etiology.. The present appearance of the rash is most consitent with drug rash.. I reveiwed the medication list carefully and with time line and believed Trileptal to be the likely agent and should be withdrawn, dose may need to b reduced slowly prevent abrupt withdrawal seizure or addition of benzos for that purpsoe, follow up with the biopsy result. If current the recommendation does not lead to a satisfactory resolut ion, he may need evaluation by a barge engineer. I discussed with Dr. Quiñones Quality Stroke Does the patient have a stroke diagnosis?: No VTE Prior VTE?: No VTE Risk Level:: Medical - low VTE Device Contraindication: Treatment Not Indicated VTE Drug Contraindication: Treatment Not Indicated
[2022-04-07 18:39] LABS: Hemoglobin 14.4 g/dl (14.0-18.0); Mean Corpuscular HGB Conc 33.5 g/dl (31.0-36.0); Mean Corpuscular Hemoglobin 33.1 pg (27.0-33.0); Mean Corpuscular Volume 98.9 fL (80.0-98.0); Mean Platelet Volume 8.8 fL (9.4-12.4); Platelet Count 383 X10*3/uL (160-400); Red Blood Count 4.35 X10*6/uL (4.60-5.80); Red Cell Distribution Width 14.3 % (11.0-16.0)
[2022-04-07 19:03] LABS: Anion Gap 14 (12-20); Blood Urea Nitrogen 18 mg/dL (9-16); Calcium 9.2 mg/dL (8.4-10.2); Carbon Dioxide 28 mmol/L (22-29); Chloride 99 mmol/L (96-108); Creatinine Clr Calc Pharmacy 112.2; Estimated Glomerular Filt Rate > 60; Glucose Random 104 mg/dL (60-115); Potassium 4.4 mmol/L (3.3-5.1); Sodium 137 mmol/L (135-145)
[2022-04-07] MEDS: LORazepam 1 MG TABLET PO (19:18)
[2022-04-07] MEDS: Tamsulosin HCL 0.4 MG CAPSULE PO (20:19)
[2022-04-07] MEDS: Perphenazine 8 MG TABLET 16 MG PO (20:19)
[2022-04-07 20:20] VITALS: BP 153/86; PULSE 106; RESP 19; TEMP 36.7; O2SAT 96
[2022-04-07] MEDS: Docusate Sodium 100 MG CAPSULE PO (20:20)
[2022-04-07] MEDS: clonazePAM 0.5 MG TABLET PO (20:20)
[2022-04-07] MEDS: Hydrocortisone 1 % Ointment 28.35 GM TUBE 1 APPL TOPICAL (20:24)
[2022-04-07] MEDS: chlorproMAZINE HCl 25 MG TABLET PO (20:27)
[2022-04-08 06:00] VITALS: BP 116/68; PULSE 89; RESP 16; TEMP 36.6; O2SAT 99
[2022-04-08] MEDS: Acetaminophen 325 MG TABLET 650 MG PO ×2 (07:12→21:59)
[2022-04-08] MEDS: Nicotine Polacrilex Lozenge 2 MG LOZENGE BUCCAL (07:12)
[2022-04-08] MEDS: Gabapentin 400 MG CAPSULE 800 MG PO ×3 (08:58→21:29)
[2022-04-08] MEDS: Perphenazine 8 MG TABLET 16 MG PO ×2 (08:58→21:30)
[2022-04-08] MEDS: DULoxetine HCl 60 MG CAPSULE.DR 120 MG PO (08:58)
[2022-04-08] MEDS: Ibuprofen 800 MG TABLET PO ×3 (08:59→21:28)
[2022-04-08] MEDS: clonazePAM 0.5 MG TABLET PO ×2 (08:59→17:51)
[2022-04-08] MEDS: Benztropine Mesylate 1 MG TABLET PO ×2 (08:59→15:43)
--- NOTE | 2022-04-08 10:04 | P.PNPSI_ITS ---
Subjective Subjective Date of Service: 04/08/22 Reason For Visit: Psychosis Subjective Notes: Conditional Voluntary Interim History: Pt complaining of toothache. CBC shows WBC trending up but pt is afebrile. Pt somewhat guarded, but reports doing well. No SI/HI. No overt paranoia. Per nursing, no behavioral concerns, but anxious at times requesting PRN medicatio ns. Medication Compliance: Yes Side effects from medications: No Attending Groups: No Review of Systems Review of Systems Gen: no fever Resp: no sob, no cough CV: no chest, no MADDEN, no leg edema GI: No n/v, no abd pain Neuro: No confusion Skin: Yes all other systems are reviewed and are negative and Unobtainable due to men [place] status Constitutional: Reports as per HPI (not answering questions), Denies chills and Denies fever(s) Cardiovascular: Denies chest pain, Denies dyspnea and Denies dyspnea on exertion Respiratory: Denies cough, Denies dyspnea and Denies dyspnea on exertion Gastrointestinal: Denies hematochezia and Denies change in bowel habits Genitourinary: Denies hematuria and Denies difficulty urinating Musculoskeletal: Denies back pain and Denies limited range of motion Denies focal weakness and Denies convulsions Psychiatric: Reports depression and Reports mood swings Mental Status Exam Mental Status Exam Narrative: cooperative. less PMR. speech nml in rate, decr in amount, clear. flattened tone, nml latency, nml loudness. thoughts linear and logical. affect constricted, normo-intense, non-labile. mood not assessed. no SI/HI/AVH expr essed. Diagnostics Vital Signs (24Hr): Vital Signs - 24 hr 04/09/22 07:50 04/09/22 20:15 Temperature 98.6 F 98.1 F Pulse Rate 96 105 H Respiratory Rate 16 18 Blood Pressure 122/76 143/76 H Pulse Oximetry 100 99 Oxygen Delivery Method Room Air Room Air BMI result Body Mass Index 29.4 Labs Results: 04/09/22 07:36 04/09/22 07:36 Labs: Laboratory Results - last 48 hr 04/09/22 04/09/22 04/09/22 07:36 07:36 07:36 WBC 14.2 H RBC 4.64 Hgb 14.9 Hct 46.4 MCV 100.0 H MCH 32.1 MCHC 32.1 RDW 14.5 Plt Count 444 H MPV 8.7 L Immature Gran % (Auto) 0.6 H Neut % (Auto) 58.0 Lymph % (Auto) 21.3 [place] % (Auto) 8.1 Eos % (Auto) 11.5 H Baso % (Auto) 0.5 Lymph # (Auto) 3.0 [place] # (Auto) 1.2 Eos # (Auto) 1.6 H Baso # (Auto) 0.1 Abs Immat Gran (auto) 0.09 H Absolute Neuts (auto) 8.2 Absolute Nucleated RBC 0.000 Nucleated RBC % (auto) 0.0 Sodium 137 Potassium 4.8 Chloride 104 Carbon Dioxide 23 Anion Gap 15 BUN 17 H Creatinine 0.77 Estim Creat Clear Calc 109.3 Estimated GFR > 60 Random Glucose 146 H D Calcium 9.1 Total Bilirubin 0.2 AST 26 D ALT 31 Alkaline Phosphatase 61 Total Protein 7.5 Albumin 4.2 Vitamin B12 548 Folate 5.8 Imaging Radiology Impressions: ITS Impressions Head CT 03/20/22 23:40 IMPRESSION: No acute intracranial pathology. Medications Medications Current Medications Acetaminophen (Acetaminophen 325 Mg Tablet) 650 mg PO Q6H PRN PRN Reason: Headache/Pain Mild Scale (1-3) Last Admin: 04/10/22 01:59 Dose: 650 mg Al Hydroxide/Mg Hydroxide (Magnesium Hydrox/Alum Hydrox 30 Ml Oral.Susp) 30 ml PO Q6H PRN PRN Reason: Heartburn/Nausea Last Admin: 04/04/22 00:42 Dose: 30 ml Amoxicillin (Amoxicillin 500 Mg Capsule) 500 mg PO TID [facility] Stop: 04/13/22 04:14 Last Admin: 04/09/22 20:15 Dose: 500 mg Benzocaine (Throat Lozenge, Medicated Lozenge) 1 lozenge MUCOUS MEM Q1H PRN PRN Reason: xerostomia Last Admin: 03/27/22 06:10 Dose: 1 lozenge Benzocaine (Benzocaine 20 % Oral Gel 9 Gm Tube) 1 appl MUCOUS MEM QID PRN; Protocol PRN Reason: tooth pain Last Admin: 04/09/22 12:46 Dose: 1 appl Benztropine Mesylate (Benztropine Mesylate 1 Mg Tablet) 1 mg PO TID [facility] Last Admin: 04/09/22 20:14 Dose: 1 mg Calcium Carbonate (Calcium Carbonate 750 Mg Tab.Chew) 750 mg PO Q4H PRN PRN Reason: Dyspepsia Last Admin: 04/05/22 21:18 Dose: 750 mg Chlorpromazine HCl (Chlorpromazine Hcl 25 Mg Tablet) 25 mg PO Q4H PRN PRN Reason: agitation. Last Admin: 04/08/22 15:43 Dose: 25 mg Clonazepam (Clonazepam 1 Mg Tablet) 1 mg PO BID [facility] Last Admin: 04/09/22 20:15 Dose: 1 mg Clonazepam (Clonazepam 0.5 Mg Tablet) 0.5 mg PO DAILY PRN PRN Reason: Anxiety Last Admin: 04/09/22 14:48 Dose: 0.5 mg Diphenhydramine HCl (Diphenhydramine Hcl 25 Mg Tablet) 50 mg PO TID PRN PRN Reason: itching/agitation Last Admin: 04/08/22 21:30 Dose: 50 mg Docusate Sodium (Docusate Sodium 100 Mg Capsule) 100 mg PO BID [facility] Last Admin: 04/09/22 20:14 Dose: 100 mg Duloxetine HCl (Duloxetine Hcl 60 Mg Capsule.Dr) 120 mg PO DAILY [facility] Last Admin: 04/09/22 08:00 Dose: 120 mg Gabapentin (Gabapentin 400 Mg Capsule) 800 mg PO TID [facility] Last Admin: 04/09/22 20:14 Dose: 800 mg Hydrocortisone (Hydrocortisone 1 % Ointment 28.35 Gm Tube) 1 appl TOPICAL BID [facility]; Protocol Last Admin: 04/09/22 20:42 Dose: Not Given Ibuprofen (Ibuprofen 800 Mg Tablet) 800 mg PO TID [facility] Last Admin: 04/09/22 19:34 Dose: 800 mg Lidocaine (Lidocaine 4 % Patch Adh..Patch) 2 patch TRANSDERMA DAILY PRN; Protocol PRN Reason: low back pain Last Admin: 04/04/22 02:44 Dose: 2 patch Lidocaine (Lidocaine 4 % Patch Adh..Patch) 1 patch TRANSDERMA DAILY PRN; Protocol PRN Reason: shoulder pain Last Admin: 04/04/22 20:14 Dose: 1 patch Magnesium Hydroxide (Milk Of Magnesia 30 Ml Oral.Susp) 30 ml PO DAILY PRN PRN Reason: Constipation Last Admin: 04/03/22 15:29 Dose: 30 ml Multi-Ingred Medicated Throat [place] (Throat [place], Medicated 20 Ml Bottle) 1 spray MUCOUS MEM Q2H PRN PRN Reason: Sore Throat Last Admin: 03/28/22 11:16 Dose: 1 spray Nicotine Polacrilex (Nicotine Polacrilex 2 Mg Gum) 2 mg BUCCAL Q1H PRN PRN Reason: Nicotine Cravings Nicotine Polacrilex (Nicotine Polacrilex Lozenge 2 Mg Lozenge) 2 mg BUCCAL Q1H PRN PRN Reason: Nicotine Cravings Last Admin: 04/08/22 07:12 Dose: 2 mg Olanzapine (Olanzapine 10 Mg Vial) 10 mg IM BID PRN PRN Reason: refusal of stanislav jung Last Admin: 03/23/22 21:48 Dose: 10 mg Oxycodone HCl (Oxycodone Hcl Immed Release 5 Mg Tablet) 10 mg PO Q12H PRN PRN Reason: severe pain Last Admin: 04/09/22 20:54 Dose: 10 mg Perphenazine (Perphenazine 8 Mg Tablet) 16 mg PO BID [facility] Last Admin: 04/09/22 20:14 Dose: 16 mg Saliva Substitute (Dry Mouth [place] 60 Ml [place]) 1 spray MUCOUS MEM Q2H PRN PRN Reason: xerostomia Last Admin: 03/28/22 22:16 Dose: 1 spray Senna (Sennosides 8.6 Mg Tablet) 17.2 mg PO DAILY [facility] Last Admin: 04/09/22 07:59 Dose: 17.2 mg Tamsulosin HCl (Tamsulosin Hcl 0.4 Mg Capsule) 0.4 mg PO BEDTIME [facility] Last Admin: 04/09/22 20:14 Dose: 0.4 mg Allergies Allergies Allergy/AdvReac Type Severity Reaction Status Date / Time haloperidol [From HALDOL] Allergy Intermediate UNKNOWN Verified 03/16/22 14:25 Assessment & Plan Assessment & Plan (1) Schizophrenia: Qualifiers: Schizophrenia type: paranoid schizophrenia Qualified Code(s): F20.0 - Paranoid schizophrenia Status: Acute Code(s): F20.9 - Schizophrenia, unspecified Plan 04/10 continue current medications. WBC trending up, w/ eosinophils high. New c/o of tooth ache. will start amoxicillin 500mg po TID x 4 days. I spent minutes with the patient and/or on the patient floor today, greater than?50% of which was spent counseling/coordinating care. Reason for contiued inpatient stay Substantial Risk for: inability to function
[2022-04-08] MEDS: oxyCODONE HCl Immed Release 5 MG TABLET PO ×2 (15:18→21:31)
[2022-04-08] MEDS: diphenhydrAMINE HCL 25 MG TABLET 50 MG PO ×2 (15:43→21:30)
[2022-04-08] MEDS: chlorproMAZINE HCl 25 MG TABLET PO (15:43)
[2022-04-08 21:27] VITALS: BP 140/74; PULSE 90; RESP 18; TEMP 36.4; O2SAT 99
[2022-04-08] MEDS: clonazePAM 1 MG TABLET PO (21:28)
[2022-04-08] MEDS: Docusate Sodium 100 MG CAPSULE PO (21:29)
[2022-04-08] MEDS: Tamsulosin HCL 0.4 MG CAPSULE PO (21:30)
[2022-04-08] MEDS: Hydrocortisone 1 % Ointment 28.35 GM TUBE 1 APPL TOPICAL (21:38)
[2022-04-09] MEDS: Acetaminophen 325 MG TABLET 650 MG PO ×3 (03:20→14:47)
[2022-04-09] MEDS: oxyCODONE HCl Immed Release 5 MG TABLET PO ×2 (04:30→10:35)
[2022-04-09] MEDS: Amoxicillin 500 MG CAPSULE PO ×3 (06:58→20:15)
[2022-04-09] MEDS: Ibuprofen 800 MG TABLET PO ×3 (06:58→19:34)
[2022-04-09 07:50] VITALS: BP 122/76; PULSE 96; RESP 16; TEMP 37; O2SAT 100
[2022-04-09] MEDS: Sennosides 8.6 MG TABLET 17.2 MG PO (07:59)
[2022-04-09] MEDS: Docusate Sodium 100 MG CAPSULE PO ×2 (07:59→20:14)
[2022-04-09] MEDS: Perphenazine 8 MG TABLET 16 MG PO ×2 (08:00→20:14)
[2022-04-09] MEDS: Benztropine Mesylate 1 MG TABLET PO ×3 (08:00→20:14)
[2022-04-09] MEDS: Gabapentin 400 MG CAPSULE 800 MG PO ×3 (08:00→20:14)
[2022-04-09] MEDS: DULoxetine HCl 60 MG CAPSULE.DR 120 MG PO (08:00)
[2022-04-09] MEDS: clonazePAM 1 MG TABLET PO ×2 (08:00→20:15)
[2022-04-09 08:07] LABS: MANUAL DIFF FLAG NO
[2022-04-09 08:10] LABS: Basophils Absolute Auto 0.1 X10*3/uL (0.0-0.2); Basophils Percent Auto 0.5 % (0-2); Eosinophils Absolute Auto 1.6 X10*3/uL (0.0-0.4); Eosinophils Percent Auto 11.5 % (0-4); Hematocrit 46.4 % (42.0-52.0); Hemoglobin 14.9 g/dl (14.0-18.0); Imm Gran Abs Auto 0.09 X10*3/uL (0.00-0.03); Imm Gran Pct Auto 0.6 % (0.0-0.4); Lymphocytes Percent Auto 21.3 % (20-40); Mean Corpuscular HGB Conc 32.1 g/dl (31.0-36.0); Mean Corpuscular Hemoglobin 32.1 pg (27.0-33.0); Mean Platelet Volume 8.7 fL (9.4-12.4); Monocytes Absolute Auto 1.2 X10*3/uL (0.1-1.2); Monocytes Percent Auto 8.1 % (2-11); Neutrophils Absolute Auto 8.2 x10*3/uL (2.0-8.3); Platelet Count 444 X10*3/uL (160-400); Red Blood Count 4.64 X10*6/uL (4.60-5.80); Red Cell Distribution Width 14.5 % (11.0-16.0); White Blood Count 14.2 X10*3/uL (4.8-10.8)
[2022-04-09 08:32] LABS: Alanine Aminotransferase 31 U/L (0-40); Albumin Level 4.2 g/dL (3.5-5.0); Alkaline Phosphatase 61 U/L (39-117); Anion Gap 15 (12-20); Aspartate Amino Transferase 26 U/L (5-37); Bilirubin Total 0.2 mg/dL (0.0-1.0); Blood Urea Nitrogen 17 mg/dL (9-16); Calcium 9.1 mg/dL (8.4-10.2); Carbon Dioxide 23 mmol/L (22-29); Chloride 104 mmol/L (96-108); Creatinine Clr Calc Pharmacy 109.3; Estimated Glomerular Filt Rate > 60; Glucose Random 146 mg/dL (60-115); Potassium 4.8 mmol/L (3.3-5.1); Sodium 137 mmol/L (135-145); Total Protein 7.5 g/dL (6.5-8.0)
[2022-04-09] MEDS: Hydrocortisone 1 % Ointment 28.35 GM TUBE 1 APPL TOPICAL (09:33)
--- NOTE | 2022-04-09 10:01 | PM.EVENT ---
Event Note Date of Service: 04/09/22 Event Note: Seen today in f/u on rash: No expension of rash, existing rash becoming confluent with some area of desquamation, no skin break..Suggest continue observing, topical moisturizers, followup on Bx result
--- NOTE | 2022-04-09 10:10 | P.PNPSI_ITS ---
Subjective Subjective Date of Service: 04/09/22 Reason For Visit: Psychosis Subjective Notes: Conditional Voluntary Interim History: Pt did not sleep well last night. He reports feeling tired. He denies SI/HI. He reports physically feeling weak and tired. No overt paranoid statements. Per nursing, pt has been visible on the unit, no behavioral concerns. Review of Systems Review of Systems Gen: no fever Resp: no sob, no cough CV: no chest, no MADDEN, no leg edema GI: No n/v, no abd pain Neuro: No confusion Skin: Yes all other systems are reviewed and are negative and Unobtainable due to mental status Constitutional: Reports as per HPI (not answering questions), Denies chills and Denies fever(s) Cardiovascular: Denies chest pain, Denies dyspnea and Denies dyspnea on exertion Respiratory: Denies cough, Denies dyspnea and Denies dyspnea on exertion Gastrointestinal: Denies hematochezia and Denies change in bowel habits Genitourinary: Denies hematuria and Denies difficulty urinating Musculoskeletal: Denies back pain and Denies limited range of motion Denies focal weakness and Denies convulsions Psychiatric: Reports depression and Reports mood swings Mental Status Exam Mental Status Exam Narrative: cooperative. less PMR. speech nml in rate, decr in amount, clear. flattened tone, nml latency, nml loudness. thoughts linear and logical. affect constricted, normo-intense, non-labile. mood not assessed. no SI/HI/AVH expressed. Diagnostics Vital Signs (24Hr): Vital Signs - 24 hr 04/09/22 07:50 04/09/22 20:15 Temperature 98.6 F 98.1 F Pulse Rate 96 105 H Respiratory Rate 16 18 Blood Pressure 122/76 143/76 H Pulse Oximetry 100 99 Oxygen Delivery Method Room Air Room Air BMI result Body Mass Index 29.4 Labs Results: 04/09/22 07:36 04/09/22 07:36 Labs: Laboratory Results - last 48 hr 04/09/22 04/09/22 04/09/22 07:36 07:36 07:36 WBC 14.2 H RBC 4.64 Hgb 14.9 Hct 46.4 MCV 100.0 H MCH 32.1 MCHC 32.1 RDW 14.5 Plt Count 444 H MPV 8.7 L Immature Gran % (Auto) 0.6 H Neut % (Auto) 58.0 Lymph % (Auto) 21.3 [place] % (Auto) 8.1 Eos % (Auto) 11.5 H Baso % (Auto) 0.5 Lymph # (Auto) 3.0 [place] # (Auto) 1.2 Eos # (Auto) 1.6 H Baso # (Auto) 0.1 Abs Immat Gran (auto) 0.09 H Absolute Neuts (auto) 8.2 Absolute Nucleated RBC 0.000 Nucleated RBC % (auto) 0.0 Sodium 137 Potassium 4.8 Chloride 104 Carbon Dioxide 23 Anion Gap 15 BUN 17 H Creatinine 0.77 Estim Creat Clear Calc 109.3 Estimated GFR > 60 Random Glucose 146 H D Calcium 9.1 Total Bilirubin 0.2 AST 26 D ALT 31 Alkaline Phosphatase 61 Total Protein 7.5 Albumin 4.2 Vitamin B12 548 Folate 5.8 Imaging Radiology Impressions: ITS Impressions Head CT 03/20/22 23:40 IMPRESSION: No acute intracranial pathology. Medications Medications Current Medications Acetaminophen (Acetaminophen 325 Mg Tablet) 650 mg PO Q6H PRN PRN Reason: Headache/Pain Mild Scale (1-3) Last Admin: 04/10/22 01:59 Dose: 650 mg Al Hydroxide/Mg Hydroxide (Magnesium Hydrox/Alum Hydrox 30 Ml Oral.Susp) 30 ml PO Q6H PRN PRN Reason: Heartburn/Nausea Last Admin: 04/04/22 00:42 Dose: 30 ml Amoxicillin (Amoxicillin 500 Mg Capsule) 500 mg PO TID [facility] Stop: 04/13/22 04:14 Last Admin: 04/09/22 20:15 Dose: 500 mg Benzocaine (Throat Lozenge, Medicated Lozenge) 1 lozenge MUCOUS MEM Q1H PRN PRN Reason: xerostomia Last Admin: 03/27/22 06:10 Dose: 1 lozenge Benzocaine (Benzocaine 20 % Oral Gel 9 Gm Tube) 1 appl MUCOUS MEM QID PRN; Protocol PRN Reason: tooth pain Last Admin: 04/10/22 06:08 Dose: 1 appl Benztropine Mesylate (Benztropine Mesylate 1 Mg Tablet) 1 mg PO TID [facility] Last Admin: 04/09/22 20:14 Dose: 1 mg Calcium Carbonate (Calcium Carbonate 750 Mg Tab.Chew) 750 mg PO Q4H PRN PRN Reason: Dyspepsia Last Admin: 04/05/22 21:18 Dose: 750 mg Chlorpromazine HCl (Chlorpromazine Hcl 25 Mg Tablet) 25 mg PO Q4H PRN PRN Reason: agitation. Last Admin: 04/08/22 15:43 Dose: 25 mg Clonazepam (Clonazepam 1 Mg Tablet) 1 mg PO BID [facility] Last Admin: 04/09/22 20:15 Dose: 1 mg Clonazepam (Clonazepam 0.5 Mg Tablet) 0.5 mg PO DAILY PRN PRN Reason: Anxiety Last Admin: 04/09/22 14:48 Dose: 0.5 mg Diphenhydramine HCl (Diphenhydramine Hcl 25 Mg Tablet) 50 mg PO TID PRN PRN Reason: itching/agitation Last Admin: 04/08/22 21:30 Dose: 50 mg Docusate Sodium (Docusate Sodium 100 Mg Capsule) 100 mg PO BID [facility] Last Admin: 04/09/22 20:14 Dose: 100 mg Duloxetine HCl (Duloxetine Hcl 60 Mg Capsule.Dr) 120 mg PO DAILY [facility] Last Admin: 04/09/22 08:00 Dose: 120 mg Gabapentin (Gabapentin 400 Mg Capsule) 800 mg PO TID [facility] Last Admin: 04/09/22 20:14 Dose: 800 mg Hydrocortisone (Hydrocortisone 1 % Ointment 28.35 Gm Tube) 1 appl TOPICAL BID [facility]; Protocol Last Admin: 04/09/22 20:42 Dose: Not Given Ibuprofen (Ibuprofen 800 Mg Tablet) 800 mg PO TID [facility] Last Admin: 04/10/22 06:07 Dose: 800 mg Lidocaine (Lidocaine 4 % Patch Adh..Patch) 2 patch TRANSDERMA DAILY PRN; Protocol PRN Reason: low back pain Last Admin: 04/04/22 02:44 Dose: 2 patch Lidocaine (Lidocaine 4 % Patch Adh..Patch) 1 patch TRANSDERMA DAILY PRN; Protocol PRN Reason: shoulder pain Last Admin: 04/04/22 20:14 Dose: 1 patch Magnesium Hydroxide (Milk Of Magnesia 30 Ml Oral.Susp) 30 ml PO DAILY PRN PRN Reason: Constipation Last Admin: 04/03/22 15:29 Dose: 30 ml Multi-Ingred Medicated Throat [place] (Throat [place], Medicated 20 Ml Bottle) 1 spray MUCOUS MEM Q2H PRN PRN Reason: Sore Throat Last Admin: 03/28/22 11:16 Dose: 1 spray Nicotine Polacrilex (Nicotine Polacrilex 2 Mg Gum) 2 mg BUCCAL Q1H PRN PRN Reason: Nicotine Cravings Nicotine Polacrilex (Nicotine Polacrilex Lozenge 2 Mg Lozenge) 2 mg BUCCAL Q1H PRN PRN Reason: Nicotine Cravings Last Admin: 04/08/22 07:12 Dose: 2 mg Olanzapine (Olanzapine 10 Mg Vial) 10 mg IM BID PRN PRN Reason: refusal of stanislav jung Last Admin: 03/23/22 21:48 Dose: 10 mg Oxycodone HCl (Oxycodone Hcl Immed Release 5 Mg Tablet) 10 mg PO Q12H PRN PRN Reason: severe pain Last Admin: 04/09/22 20:54 Dose: 10 mg Perphenazine (Perphenazine 8 Mg Tablet) 16 mg PO BID [facility] Last Admin: 04/09/22 20:14 Dose: 16 mg Saliva Substitute (Dry Mouth [place] 60 Ml [place]) 1 spray MUCOUS MEM Q2H PRN PRN Reason: xerostomia Last Admin: 03/28/22 22:16 Dose: 1 spray Senna (Sennosides 8.6 Mg Tablet) 17.2 mg PO DAILY [facility] Last Admin: 04/09/22 07:59 Dose: 17.2 mg Tamsulosin HCl (Tamsulosin Hcl 0.4 Mg Capsule) 0.4 mg PO BEDTIME [facility] Last Admin: 04/09/22 20:14 Dose: 0.4 mg Allergies Allergies Allergy/AdvReac Type Severity Reaction Status Date / Time haloperidol [From HALDOL] Allergy Intermediate UNKNOWN Verified 03/16/22 14:25 Assessment & Plan Assessment & Plan (1) Schizophrenia: Qualifiers: Schizophrenia type: paranoid schizophrenia Qualified Code(s): F20.0 - Paranoid schizophrenia Status: Acute Code(s): F20.9 - Schizophrenia, unspecified Plan 04/08 continue current medications. WBC trending up, w/ eosinophils high. New c/o of tooth ache. will start amoxicillin 500mg po TID x 4 days. 04/09 continue current medications. I spent minutes with the patient and/or on the patient floor today, greater than?50% of which was spent counseling/coordinating care. Reason for contiued inpatient stay Substantial Risk for: inability to function
[2022-04-09 11:05] LABS: Folate 5.8 ng/mL (> or = 4.0); Vitamin B12 548 pg/mL (200-900)
[2022-04-09] MEDS: Benzocaine 20 % Oral Gel 9 GM TUBE 1 APPL MUCOUS MEM (12:46)
[2022-04-09] MEDS: clonazePAM 0.5 MG TABLET PO (14:48)
[2022-04-09] MEDS: oxyCODONE HCl Immed Release 5 MG TABLET 10 MG PO ×2 (14:56→20:54)
[2022-04-09] MEDS: Tamsulosin HCL 0.4 MG CAPSULE PO (20:14)
[2022-04-09 20:15] VITALS: BP 143/76; PULSE 105; RESP 18; TEMP 36.7; O2SAT 99
[2022-04-10] MEDS: Acetaminophen 325 MG TABLET 650 MG PO ×4 (01:59→23:15)
[2022-04-10] MEDS: Ibuprofen 800 MG TABLET PO ×3 (06:07→20:39)
[2022-04-10] MEDS: Benzocaine 20 % Oral Gel 9 GM TUBE 1 APPL MUCOUS MEM ×4 (06:08→20:38)
[2022-04-10] MEDS: DULoxetine HCl 60 MG CAPSULE.DR 120 MG PO (08:47)
[2022-04-10] MEDS: oxyCODONE HCl Immed Release 5 MG TABLET 10 MG PO ×2 (08:47→20:27)
[2022-04-10] MEDS: Sennosides 8.6 MG TABLET 17.2 MG PO (08:48)
[2022-04-10] MEDS: Benztropine Mesylate 1 MG TABLET PO ×3 (08:48→20:39)
[2022-04-10] MEDS: Gabapentin 400 MG CAPSULE 800 MG PO ×3 (08:48→20:39)
[2022-04-10] MEDS: Amoxicillin 500 MG CAPSULE PO ×3 (08:48→20:38)
[2022-04-10] MEDS: Perphenazine 8 MG TABLET 16 MG PO ×2 (08:48→20:39)
[2022-04-10] MEDS: Docusate Sodium 100 MG CAPSULE PO ×2 (08:48→20:38)
[2022-04-10] MEDS: clonazePAM 1 MG TABLET PO ×2 (08:48→20:39)
[2022-04-10 09:01] LABS: MANUAL DIFF FLAG NO
[2022-04-10 09:05] LABS: Basophils Absolute Auto 0.1 X10*3/uL (0.0-0.2); Basophils Percent Auto 0.5 % (0-2); Eosinophils Absolute Auto 1.3 X10*3/uL (0.0-0.4); Eosinophils Percent Auto 8.7 % (0-4); Hematocrit 42.7 % (42.0-52.0); Imm Gran Abs Auto 0.07 X10*3/uL (0.00-0.03); Imm Gran Pct Auto 0.5 % (0.0-0.4); Lymphocytes Absolute Auto 1.9 X10*3/uL (1.2-4.9); Lymphocytes Percent Auto 12.6 % (20-40); Mean Corpuscular HGB Conc 32.8 g/dl (31.0-36.0); Mean Corpuscular Hemoglobin 32.4 pg (27.0-33.0); Mean Corpuscular Volume 98.8 fL (80.0-98.0); Mean Platelet Volume 8.9 fL (9.4-12.4); Monocytes Absolute Auto 1.3 X10*3/uL (0.1-1.2); Monocytes Percent Auto 8.6 % (2-11); Neutrophils Absolute Auto 10.2 x10*3/uL (2.0-8.3); Neutrophils Percent Auto 69.1 % (45-73); Platelet Count 400 X10*3/uL (160-400); Red Blood Count 4.32 X10*6/uL (4.60-5.80); Red Cell Distribution Width 14.5 % (11.0-16.0); White Blood Count 14.8 X10*3/uL (4.8-10.8)
--- NOTE | 2022-04-10 09:06 | PM.EVENT ---
Event Note Date of Service: 04/10/22 Event Note: Seen againt today. Rash about the same not expanding, no open skin.. Continue monitoring, Bx result pending
[2022-04-10 09:51] VITALS: BP 135/69; PULSE 114; TEMP 36.8; O2SAT 95
[2022-04-10] MEDS: Hydrocortisone 1 % Ointment 28.35 GM TUBE 1 APPL TOPICAL ×2 (10:03→20:38)
--- NOTE | 2022-04-10 16:56 | HO.PSYCHPN ---
Subjective Subjective Date of Service: 04/10/22 Reason For Visit: Psychosis Interim History: pt seen up and about emily prado he day but by the time of the interview pt was zen schofield bed asleep. did not rouse himself very much. did show MD his hands, which remain swollen and red, as well as his head. no requests or complaints. did say he did not believe the rash had worsened. per staff, visible, brighter yesterday. c/o pain in his tooth. c/o anx/dep. in good behavioral control yesterday. napping. oxycodone PRNs increased to 10 mg each. Mental Status Exam Mental Status Exam Narrative: minimally cooperative, under blankets. speech nml in rate, decr in amount, clear. flattened tone, nml latency, nml loudness. thoughts linear and logical. affect constricted, normo-intense, non-labile. mood not assessed. no SI/HI/AVH expressed. Diagnostics Vital Signs (24Hr): Vital Signs - 24 hr 04/09/22 20:15 04/10/22 09:51 Temperature 98.1 F 98.3 F Pulse Rate 105 H 114 H Respiratory Rate 18 Blood Pressure 143/76 H 135/69 Pulse Oximetry 99 95 Oxygen Delivery Method Room Air Room Air BMI result Body Mass Index 29.4 Labs Results: 04/10/22 08:24 04/09/22 07:36 Labs: Laboratory Results - last 48 hr 04/09/22 04/09/22 04/09/22 07:36 07:36 07:36 WBC 14.2 H RBC 4.64 Hgb 14.9 Hct 46.4 MCV 100.0 H MCH 32.1 MCHC 32.1 RDW 14.5 Plt Count 444 H MPV 8.7 L Immature Gran % (Auto) 0.6 H Neut % (Auto) 58.0 Lymph % (Auto) 21.3 [place] % (Auto) 8.1 Eos % (Auto) 11.5 H Baso % (Auto) 0.5 Lymph # (Auto) 3.0 [place] # (Auto) 1.2 Eos # (Auto) 1.6 H Baso # (Auto) 0.1 Abs Immat Gran (auto) 0.09 H Absolute Neuts (auto) 8.2 Absolute Nucleated RBC 0.000 Nucleated RBC % (auto) 0.0 Sodium 137 Potassium 4.8 Chloride 104 Carbon Dioxide 23 Anion Gap 15 BUN 17 H Creatinine 0.77 Estim Creat Clear Calc 109.3 Estimated GFR > 60 Random Glucose 146 H D Calcium 9.1 Total Bilirubin 0.2 AST 26 D ALT 31 Alkaline Phosphatase 61 Total Protein 7.5 Albumin 4.2 Vitamin B12 548 Folate 5.8 04/10/22 08:24 WBC 14.8 H RBC 4.32 L Hgb 14.0 Hct 42.7 MCV 98.8 H MCH 32.4 MCHC 32.8 RDW 14.5 Plt Count 400 MPV 8.9 L Immature Gran % (Auto) 0.5 H Neut % (Auto) 69.1 Lymph % (Auto) 12.6 L [place] % (Auto) 8.6 Eos % (Auto) 8.7 H Baso % (Auto) 0.5 Lymph # (Auto) 1.9 [place] # (Auto) 1.3 H Eos # (Auto) 1.3 H Baso # (Auto) 0.1 Abs Immat Gran (auto) 0.07 H Absolute Neuts (auto) 10.2 H Absolute Nucleated RBC 0.000 Nucleated RBC % (auto) 0.0 Sodium Potassium Chloride Carbon Dioxide Anion Gap BUN Creatinine Estim Creat Clear Calc Estimated GFR Random Glucose Calcium Total Bilirubin AST ALT Alkaline Phosphatase Total Protein Albumin Vitamin B12 Folate Imaging Radiology Impressions: ITS Impressions Head CT 03/20/22 23:40 IMPRESSION: No acute intracranial pathology. Medications Medications Current Medications Acetaminophen (Acetaminophen 325 Mg Tablet) 650 mg PO Q6H PRN PRN Reason: Headache/Pain Mild Scale (1-3) Last Admin: 04/10/22 11:44 Dose: 650 mg Al Hydroxide/Mg Hydroxide (Magnesium Hydrox/Alum Hydrox 30 Ml Oral.Susp) 30 ml PO Q6H PRN PRN Reason: Heartburn/Nausea Last Admin: 04/04/22 00:42 Dose: 30 ml Amoxicillin (Amoxicillin 500 Mg Capsule) 500 mg PO TID [facility] Stop: 04/13/22 04:14 Last Admin: 04/10/22 14:16 Dose: 500 mg Benzocaine (Throat Lozenge, Medicated Lozenge) 1 lozenge MUCOUS MEM Q1H PRN PRN Reason: xerostomia Last Admin: 03/27/22 06:10 Dose: 1 lozenge Benzocaine (Benzocaine 20 % Oral Gel 9 Gm Tube) 1 appl MUCOUS MEM QID PRN; Protocol PRN Reason: tooth pain Last Admin: 04/10/22 14:36 Dose: 1 appl Benztropine Mesylate (Benztropine Mesylate 1 Mg Tablet) 1 mg PO TID [facility]ANDA Last Admin: 04/10/22 14:15 Dose: 1 mg Calcium Carbonate (Calcium Carbonate 750 Mg Tab.Chew) 750 mg PO Q4H PRN PRN Reason: Dyspepsia Last Admin: 04/05/22 21:18 Dose: 750 mg Chlorpromazine HCl (Chlorpromazine Hcl 25 Mg Tablet) 25 mg PO Q4H PRN PRN Reason: agitation. Last Admin: 04/08/22 15:43 Dose: 25 mg Clonazepam (Clonazepam 1 Mg Tablet) 1 mg PO BID [facility] Last Admin: 04/10/22 08:48 Dose: 1 mg Clonazepam (Clonazepam 0.5 Mg Tablet) 0.5 mg PO DAILY PRN PRN Reason: Anxiety Last Admin: 04/09/22 14:48 Dose: 0.5 mg Diphenhydramine HCl (Diphenhydramine Hcl 25 Mg Tablet) 50 mg PO TID PRN PRN Reason: itching/agitation Last Admin: 04/08/22 21:30 Dose: 50 mg Docusate Sodium (Docusate Sodium 100 Mg Capsule) 100 mg PO BID [facility] Last Admin: 04/10/22 08:48 Dose: 100 mg Duloxetine HCl (Duloxetine Hcl 60 Mg Capsule.Dr) 120 mg PO DAILY [facility] Last Admin: 04/10/22 08:47 Dose: 120 mg Gabapentin (Gabapentin 400 Mg Capsule) 800 mg PO TID [facility] Last Admin: 04/10/22 14:15 Dose: 800 mg Hydrocortisone (Hydrocortisone 1 % Ointment 28.35 Gm Tube) 1 appl TOPICAL BID [facility]; Protocol Last Admin: 04/10/22 10:03 Dose: 1 appl Ibuprofen (Ibuprofen 800 Mg Tablet) 800 mg PO TID [facility] Last Admin: 04/10/22 14:15 Dose: 800 mg Lidocaine (Lidocaine 4 % Patch Adh..Patch) 2 patch TRANSDERMA DAILY PRN; Protocol PRN Reason: low back pain Last Admin: 04/04/22 02:44 Dose: 2 patch Lidocaine (Lidocaine 4 % Patch Adh..Patch) 1 patch TRANSDERMA DAILY PRN; Protocol PRN Reason: shoulder pain Last Admin: 04/04/22 20:14 Dose: 1 patch Magnesium Hydroxide (Milk Of Magnesia 30 Ml Oral.Susp) 30 ml PO DAILY PRN PRN Reason: Constipation Last Admin: 04/03/22 15:29 Dose: 30 ml Multi-Ingred Medicated Throat [place] (Throat [place], Medicated 20 Ml Bottle) 1 spray MUCOUS MEM Q2H PRN PRN Reason: Sore Throat Last Admin: 03/28/22 11:16 Dose: 1 spray Nicotine Polacrilex (Nicotine Polacrilex 2 Mg Gum) 2 mg BUCCAL Q1H PRN PRN Reason: Nicotine Cravings Nicotine Polacrilex (Nicotine Polacrilex Lozenge 2 Mg Lozenge) 2 mg BUCCAL Q1H PRN PRN Reason: Nicotine Cravings Last Admin: 04/08/22 07:12 Dose: 2 mg Olanzapine (Olanzapine 10 Mg Vial) 10 mg IM BID PRN PRN Reason: refusal of stanislav jung Last Admin: 03/23/22 21:48 Dose: 10 mg Oxycodone HCl (Oxycodone Hcl Immed Release 5 Mg Tablet) 10 mg PO Q12H PRN PRN Reason: severe pain Last Admin: 04/10/22 08:47 Dose: 10 mg Perphenazine (Perphenazine 8 Mg Tablet) 16 mg PO BID [facility] Last Admin: 04/10/22 08:48 Dose: 16 mg Saliva Substitute (Dry Mouth [place] 60 Ml [place]) 1 spray MUCOUS MEM Q2H PRN PRN Reason: xerostomia Last Admin: 03/28/22 22:16 Dose: 1 spray Senna (Sennosides 8.6 Mg Tablet) 17.2 mg PO DAILY [facility] Last Admin: 04/10/22 08:48 Dose: 17.2 mg Tamsulosin HCl (Tamsulosin Hcl 0.4 Mg Capsule) 0.4 mg PO BEDTIME [facility] Last Admin: 04/09/22 20:14 Dose: 0.4 mg Allergies Allergies Allergy/AdvReac Type Severity Reaction Status Date / Time haloperidol [From HALDOL] Allergy Intermediate UNKNOWN Verified 03/16/22 14:25 Assessment & Plan Assessment & Plan (1) Schizophrenia: Qualifiers: Schizophrenia type: paranoid schizophrenia Qualified Code(s): F20.0 - Paranoid schizophrenia Status: Acute Code(s): F20.9 - Schizophrenia, unspecified (2) Rash: Status: Acute Code(s): R21 - Rash and other nonspecific skin eruption (3) Myelitis: Status: Acute Code(s): G04.91 - Myelitis, unspecified Plan 03/22: continue outpt meds for now.? t/c ranitidine for GERD, incr in gabapentin for pain, trazodone for sleep.? educate re evidence-based mood stabilizers and attempt to get pt to take one of the three. 03/23: agrees to trial of tegretol in place of trileptal.? trileptal DCed and tegretol started at 600 BID.? perphenazine increased to 16 BID and IM back-ups prescribed.? requesting neuro consult to see if any post-lesion syndrome may account for c/o cramps/pain and if there is anything that may be done to help.? thorazine and ativan PRNs prescribed. 03/24: per neuro consult, no need for further neuro w/u or intervention, pt recovering well from myelitis.? check HIV1&2.? steroid cream for rash, artificial saliva/lozenges Rxed.? encouraged to take tegretol, which he had said he would do yesterday but which he has not done (aside from 200 mg). 03/25: rash Dx as scabies, treated yesterday.? took tegretol 600 this morning and reports improved mood today.? encouraged compliance. 03/26: compliant with tegretol past 24H.? appears a bit sedated today; will decrease PRNs.? crural complaints, referred to hospitalist. 03/28: sedated.? decreasing medications which may cause delirium or sedation.? ativan, baclofen, trazodone, hydroxyzine DCed.? started keflex for UTI.? otherwise previous plan continued.? clearly unsteady on his feet, either sedated or getting delirious. 03/29: Patient less sedated alert not aggressive doing better with less sedating medication continue current treatment plan per Dr. Quiñones. 03/30: taper tegretol as likely offender for the rash.? neuro opines likely druge rash.? PT consult for gait.? sensitivities of urine species noted, antibx changed from keflex to nitrofurantoin x 7 days. 03/31: DC tegretol and start trileptal at a 1:1.5 ratio.? pt has tolerated trileptal in the past without adverse reaction.? less sedated today, rash looks a bit better.? keflex also DCed yesterday but rash appears to have begun prior to first dose of keflex. 04/02 dc trileltap low sodium and also risk of rash-increased gabapentin from 600mg tid to 800mg tid and plenty of prns if gets manic. 04/03: much improved mental status from last week.? due either to adequate treatment of UTI with change in antibiotic or DC of tegretol.? trileptal DCed over w/e due to hyponatremia; may need to restart trileptal if mood becomes labile/irritable.? hyponatremia noted within a day or two of DC of tegretol and start of trileptal, meaning it was due to tegretol rather than trileptal.? pt has tolerated trileptal in the past. 04/04: pt clearly more irritable and labile today.? restart trileptal at 450 BID. 04/05: several behavioral outbursts in the past 24H.? increase trileptal to 600 BID.? rash does not appear to be improving. 04/06: skin Bx taken.? rash stable.? appears less irritable today.? no change to mgmt. 04/07: awaiting Bx results.? new/worsened dermatologic condition of blanching deep erythema of head and hands.? ID and hospitalists consulted to evaluate.? initial rash started by 03/24, prior to any new medications.? pt has been on current meds in the past without side effects.? rash suggests drug reaction, however.? does not appear SJS or TEN-like.? initial rash appears as exanthematous rash while secondary rash of the past 24H looks more as if cutaneous small vessel vasculitis rash. 04/08 continue current medications. WBC trending up, w/ eosinophils high. New c/o of tooth ache. will start amoxicillin 500mg po TID x 4 days. 04/09 continue current medications. 04/10: no changes. I spent ___25___ minutes with the patient and/or on the patient floor today, greater than?50% of which was spent counseling/coordinating care. Reason for contiued inpatient stay Substantial Risk for: harm to self, inability to function and rapid decompensation
[2022-04-10] MEDS: Tamsulosin HCL 0.4 MG CAPSULE PO (20:39)
[2022-04-10 21:00] VITALS: BP 149/67; PULSE 112; RESP 18; TEMP 36.9; O2SAT 95
[2022-04-11 06:00] VITALS: BP 117/61; PULSE 101; RESP 16; TEMP 36.7; O2SAT 97
[2022-04-11] MEDS: Acetaminophen 325 MG TABLET 650 MG PO (06:02)
[2022-04-11] MEDS: Ibuprofen 800 MG TABLET PO ×3 (06:03→20:46)
[2022-04-11] MEDS: Sennosides 8.6 MG TABLET 17.2 MG PO (08:59)
[2022-04-11] MEDS: Amoxicillin 500 MG CAPSULE PO ×3 (09:00→20:46)
[2022-04-11] MEDS: Gabapentin 400 MG CAPSULE 800 MG PO ×3 (09:00→20:47)
[2022-04-11] MEDS: clonazePAM 1 MG TABLET PO (09:01)
[2022-04-11] MEDS: Benztropine Mesylate 1 MG TABLET PO ×3 (09:01→20:47)
[2022-04-11] MEDS: Perphenazine 8 MG TABLET 16 MG PO ×2 (09:01→20:46)
[2022-04-11] MEDS: Docusate Sodium 100 MG CAPSULE PO ×2 (09:02→20:47)
[2022-04-11] MEDS: DULoxetine HCl 60 MG CAPSULE.DR 120 MG PO (09:02)
[2022-04-11] MEDS: oxyCODONE HCl Immed Release 5 MG TABLET 10 MG PO (13:16)
--- NOTE | 2022-04-11 14:59 | HO.PSYCHPN ---
Subjective Subjective Date of Service: 04/11/22 Reason For Visit: Psychosis Interim History: calm, cooperative. lying under blanket during interview. seen ambulating the unit later in the day. c/o feeling cold. reports rash unchanged. c/o foot pain, which is longstanding. no other complaints or requests. reports his mood is OK and without rage attacks. per staff, poor sleep 2/2 pain. rash unchanged. flaky skin. Mental Status Exam Mental Status Exam Narrative: minimally cooperative, under blankets. speech nml in rate, decr in amount, clear. flattened tone, nml latency, nml loudness. thoughts linear and logical. affect constricted, normo-intense, non-labile. mood not assessed. no SI/HI/AVH expressed. Diagnostics Vital Signs (24Hr): Vital Signs - 24 hr 04/10/22 21:00 04/11/22 06:00 Temperature 98.5 F 98.1 F Pulse Rate 112 H 101 H Respiratory Rate 18 16 Blood Pressure 149/67 H 117/61 Pulse Oximetry 95 97 Oxygen Delivery Method Room Air Room Air BMI result Body Mass Index 29.4 Labs Results: 04/10/22 08:24 04/09/22 07:36 Labs: Laboratory Results - last 48 hr 04/10/22 08:24 WBC 14.8 H RBC 4.32 L Hgb 14.0 Hct 42.7 MCV 98.8 H MCH 32.4 MCHC 32.8 RDW 14.5 Plt Count 400 MPV 8.9 L Immature Gran % (Auto) 0.5 H Neut % (Auto) 69.1 Lymph % (Auto) 12.6 L [place] % (Auto) 8.6 Eos % (Auto) 8.7 H Baso % (Auto) 0.5 Lymph # (Auto) 1.9 [place] # (Auto) 1.3 H Eos # (Auto) 1.3 H Baso # (Auto) 0.1 Abs Immat Gran (auto) 0.07 H Absolute Neuts (auto) 10.2 H Absolute Nucleated RBC 0.000 Nucleated RBC % (auto) 0.0 Imaging Radiology Impressions: ITS Impressions Head CT 03/20/22 23:40 IMPRESSION: No acute intracranial pathology. Medications Medications Current Medications Acetaminophen (Acetaminophen 325 Mg Tablet) 650 mg PO Q6H PRN PRN Reason: Headache/Pain Mild Scale (1-3) Last Admin: 04/11/22 06:02 Dose: 650 mg Al Hydroxide/Mg Hydroxide (Magnesium Hydrox/Alum Hydrox 30 Ml Oral.Susp) 30 ml PO Q6H PRN PRN Reason: Heartburn/Nausea Last Admin: 04/04/22 00:42 Dose: 30 ml Amoxicillin (Amoxicillin 500 Mg Capsule) 500 mg PO TID [facility] Stop: 04/13/22 04:14 Last Admin: 04/11/22 14:16 Dose: 500 mg Benzocaine (Throat Lozenge, Medicated Lozenge) 1 lozenge MUCOUS MEM Q1H PRN PRN Reason: xerostomia Last Admin: 03/27/22 06:10 Dose: 1 lozenge Benzocaine (Benzocaine 20 % Oral Gel 9 Gm Tube) 1 appl MUCOUS MEM QID PRN; Protocol PRN Reason: tooth pain Last Admin: 04/10/22 20:38 Dose: 1 appl Benztropine Mesylate (Benztropine Mesylate 1 Mg Tablet) 1 mg PO TID [facility] Last Admin: 04/11/22 14:17 Dose: 1 mg Calcium Carbonate (Calcium Carbonate 750 Mg Tab.Chew) 750 mg PO Q4H PRN PRN Reason: Dyspepsia Last Admin: 04/05/22 21:18 Dose: 750 mg Chlorpromazine HCl (Chlorpromazine Hcl 25 Mg Tablet) 25 mg PO Q4H PRN PRN Reason: agitation. Last Admin: 04/08/22 15:43 Dose: 25 mg Clonazepam (Clonazepam 1 Mg Tablet) 1 mg PO BID [facility] Last Admin: 04/11/22 09:01 Dose: 1 mg Clonazepam (Clonazepam 0.5 Mg Tablet) 0.5 mg PO DAILY PRN PRN Reason: Anxiety Last Admin: 04/09/22 14:48 Dose: 0.5 mg Diphenhydramine HCl (Diphenhydramine Hcl 25 Mg Tablet) 50 mg PO TID PRN PRN Reason: itching/agitation Last Admin: 04/08/22 21:30 Dose: 50 mg Docusate Sodium (Docusate Sodium 100 Mg Capsule) 100 mg PO BID [facility] Last Admin: 04/11/22 09:02 Dose: 100 mg Duloxetine HCl (Duloxetine Hcl 60 Mg Capsule.Dr) 120 mg PO DAILY [facility] Last Admin: 04/11/22 09:02 Dose: 120 mg Gabapentin (Gabapentin 400 Mg Capsule) 800 mg PO TID [facility] Last Admin: 04/11/22 14:16 Dose: 800 mg Hydrocortisone (Hydrocortisone 1 % Ointment 28.35 Gm Tube) 1 appl TOPICAL BID [facility]; Protocol Last Admin: 04/11/22 09:04 Dose: Not Given Ibuprofen (Ibuprofen 800 Mg Tablet) 800 mg PO TID [facility] Last Admin: 04/11/22 14:17 Dose: 800 mg Lidocaine (Lidocaine 4 % Patch Adh..Patch) 2 patch TRANSDERMA DAILY PRN; Protocol PRN Reason: low back pain Last Admin: 04/04/22 02:44 Dose: 2 patch Lidocaine (Lidocaine 4 % Patch Adh..Patch) 1 patch TRANSDERMA DAILY PRN; Protocol PRN Reason: shoulder pain Last Admin: 04/04/22 20:14 Dose: 1 patch Magnesium Hydroxide (Milk Of Magnesia 30 Ml Oral.Susp) 30 ml PO DAILY PRN PRN Reason: Constipation Last Admin: 04/03/22 15:29 Dose: 30 ml Multi-Ingred Medicated Throat [place] (Throat [place], Medicated 20 Ml Bottle) 1 spray MUCOUS MEM Q2H PRN PRN Reason: Sore Throat Last Admin: 03/28/22 11:16 Dose: 1 spray Nicotine Polacrilex (Nicotine Polacrilex 2 Mg Gum) 2 mg BUCCAL Q1H PRN PRN Reason: Nicotine Cravings Nicotine Polacrilex (Nicotine Polacrilex Lozenge 2 Mg Lozenge) 2 mg BUCCAL Q1H PRN PRN Reason: Nicotine Cravings Last Admin: 04/08/22 07:12 Dose: 2 mg Olanzapine (Olanzapine 10 Mg Vial) 10 mg IM BID PRN PRN Reason: refusal of stanislav jung Last Admin: 03/23/22 21:48 Dose: 10 mg Oxycodone HCl (Oxycodone Hcl Immed Release 5 Mg Tablet) 10 mg PO Q12H PRN PRN Reason: severe pain Last Admin: 04/11/22 13:16 Dose: 10 mg Perphenazine (Perphenazine 8 Mg Tablet) 16 mg PO BID [facility] Last Admin: 04/11/22 09:01 Dose: 16 mg Saliva Substitute (Dry Mouth [place] 60 Ml [place]) 1 spray MUCOUS MEM Q2H PRN PRN Reason: xerostomia Last Admin: 03/28/22 22:16 Dose: 1 spray Senna (Sennosides 8.6 Mg Tablet) 17.2 mg PO DAILY [facility] Last Admin: 04/11/22 08:59 Dose: 17.2 mg Tamsulosin HCl (Tamsulosin Hcl 0.4 Mg Capsule) 0.4 mg PO BEDTIME [facility] Last Admin: 04/10/22 20:39 Dose: 0.4 mg Allergies Allergies Allergy/AdvReac Type Severity Reaction Status Date / Time haloperidol [From HALDOL] Allergy Intermediate UNKNOWN Verified 03/16/22 14:25 Assessment & Plan Assessment & Plan (1) Schizophrenia: Qualifiers: Schizophrenia type: paranoid schizophrenia Qualified Code(s): F20.0 - Paranoid schizophrenia Status: Acute Code(s): F20.9 - Schizophrenia, unspecified (2) Rash: Status: Acute Code(s): R21 - Rash and other nonspecific skin eruption (3) Myelitis: Status: Acute Code(s): G04.91 - Myelitis, unspecified Plan 03/22: continue outpt meds for now.? t/c ranitidine for GERD, incr in gabapentin for pain, trazodone for sleep.? educate re evidence-based mood stabilizers and attempt to get pt to take one of the three. 03/23: agrees to trial of tegretol in place of trileptal.? trileptal DCed and tegretol started at 600 BID.? perphenazine increased to 16 BID and IM back-ups prescribed.? requesting neuro consult to see if any post-lesion syndrome may account for c/o cramps/pain and if there is anything that may be done to help.? thorazine and ativan PRNs prescribed. 03/24: per neuro consult, no need for further neuro w/u or intervention, pt recovering well from myelitis.? check HIV1&2.? steroid cream for rash, artificial saliva/lozenges Rxed.? encouraged to take tegretol, which he had said he would do yesterday but which he has not done (aside from 200 mg). 03/25: rash Dx as scabies, treated yesterday.? took tegretol 600 this morning and reports improved mood today.? encouraged compliance. 03/26: compliant with tegretol past 24H.? appears a bit sedated today; will decrease PRNs.? crural complaints, referred to hospitalist. 03/28: sedated.? decreasing medications which may cause delirium or sedation.? ativan, baclofen, trazodone, hydroxyzine DCed.? started keflex for UTI.? otherwise previous plan continued.? clearly unsteady on his feet, either sedated or getting delirious. 03/29: Patient less sedated alert not aggressive doing better with less sedating medication continue current treatment plan per Dr. Quiñones. 03/30: taper tegretol as likely offender for the rash.? neuro opines likely druge rash.? PT consult for gait.? sensitivities of urine species noted, antibx changed from keflex to nitrofurantoin x 7 days. 03/31: DC tegretol and start trileptal at a 1:1.5 ratio.? pt has tolerated trileptal in the past without adverse reaction.? less sedated today, rash looks a bit better.? keflex also DCed yesterday but rash appears to have begun prior to first dose of keflex. 04/02 dc trileltap low sodium and also risk of rash-increased gabapentin from 600mg tid to 800mg tid and plenty of prns if gets manic. 04/03: much improved mental status from last week.? due either to adequate treatment of UTI with change in antibiotic or DC of tegretol.? trileptal DCed over w/e due to hyponatremia; may need to restart trileptal if mood becomes labile/irritable.? hyponatremia noted within a day or two of DC of tegretol and start of trileptal, meaning it was due to tegretol rather than trileptal.? pt has tolerated trileptal in the past. 04/04: pt clearly more irritable and labile today.? restart trileptal at 450 BID. 04/05: several behavioral outbursts in the past 24H.? increase trileptal to 600 BID.? rash does not appear to be improving. 04/06: skin Bx taken.? rash stable.? appears less irritable today.? no change to mgmt. 04/07: awaiting Bx results.? new/worsened dermatologic condition of blanching deep erythema of head and hands.? ID and hospitalists consulted to evaluate.? initial rash started by 03/24, prior to any new medications.? pt has been on current meds in the past without side effects.? rash suggests drug reaction, however.? does not appear SJS or TEN-like.? initial rash appears as exanthematous rash while secondary rash of the past 24H looks more as if cutaneous small vessel vasculitis rash. 04/08 continue current medications. WBC trending up, w/ eosinophils high. New c/o of tooth ache. will start amoxicillin 500mg po TID x 4 days. 04/09 continue current medications. 04/10: no changes. 04/11: decrease klonopin. debrox for ears. otherwise continue current mgmt. I spent ___20___ minutes with the patient and/or on the patient floor today, greater than?50% of which was spent counseling/coordinating care. Reason for contiued inpatient stay Substantial Risk for: inability to function and rapid decompensation
--- NOTE | 2022-04-11 15:53 | P.PNADD_ITS ---
Subjective Subjective Date of Service: 04/11/22 Reason For Visit: Psychosis Interim History: Patient denies any withdrawals or cravings at this time. Requesting information regarding methadone. Information was provided, including risks and benefits, comparison of methadone versus Suboxone. Also discussed parameters requirements of attending a methadone clinic, including attending daily to obtain dose. therapeutic consultant provided patient with her card, and we informed him that if he wish es to have an intake appointment at a methadone clinic once discharged, that recovery team could assist with this. It was explained that since he is having no withdrawals or cravings at this time, it would not be useful to initiate methadone at this time. Diagnostics Vital Signs (24Hr): Vital Signs - 24 hr 04/10/22 21:00 04/11/22 06:00 Temperature 98.5 F 98.1 F Pulse Rate 112 H 101 H Respiratory Rate 18 16 Blood Pressure 149/67 H 117/61 Pulse Oximetry 95 97 Oxygen Delivery Method Room Air Room Air BMI result Body Mass Index 29.4 Labs Results: 04/10/22 08:24 04/09/22 07:36 Labs: Laboratory Results - last 48 hr 04/10/22 08:24 WBC 14.8 H RBC 4.32 L Hgb 14.0 Hct 42.7 MCV 98.8 H MCH 32.4 MCHC 32.8 RDW 14.5 Plt Count 400 MPV 8.9 L Immature Gran % (Auto) 0.5 H Neut % (Auto) 69.1 Lymph % (Auto) 12.6 L [place] % (Auto) 8.6 Eos % (Auto) 8.7 H Baso % (Auto) 0.5 Lymph # (Auto) 1.9 [place] # (Auto) 1.3 H Eos # (Auto) 1.3 H Baso # (Auto) 0.1 Abs Immat Gran (auto) 0.07 H Absolute Neuts (auto) 10.2 H Absolute Nucleated RBC 0.000 Nucleated RBC % (auto) 0.0 Imaging Radiology Impressions: ITS Impressions Head CT 03/20/22 23:40 IMPRESSION: No acute intracranial pathology. Medications Medications Current Medications Acetaminophen (Acetaminophen 325 Mg Tablet) 650 mg PO Q6H PRN PRN Reason: Headache/Pain Mild Scale (1-3) Last Admin: 04/11/22 06:02 Dose: 650 mg Al Hydroxide/Mg Hydroxide (Magnesium Hydrox/Alum Hydrox 30 Ml Oral.Susp) 30 ml PO Q6H PRN PRN Reason: Heartburn/Nausea Last Admin: 04/04/22 00:42 Dose: 30 ml Amoxicillin (Amoxicillin 500 Mg Capsule) 500 mg PO TID [facility] Stop: 04/13/22 04:14 Last Admin: 04/11/22 14:16 Dose: 500 mg Benzocaine (Throat Lozenge, Medicated Lozenge) 1 lozenge MUCOUS MEM Q1H PRN PRN Reason: xerostomia Last Admin: 03/27/22 06:10 Dose: 1 lozenge Benzocaine (Benzocaine 20 % Oral Gel 9 Gm Tube) 1 appl MUCOUS MEM QID PRN; Protocol PRN Reason: tooth pain Last Admin: 04/10/22 20:38 Dose: 1 appl Benztropine Mesylate (Benztropine Mesylate 1 Mg Tablet) 1 mg PO TID [facility] Last Admin: 04/11/22 14:17 Dose: 1 mg Calcium Carbonate (Calcium Carbonate 750 Mg Tab.Chew) 750 mg PO Q4H PRN PRN Reason: Dyspepsia Last Admin: 04/05/22 21:18 Dose: 750 mg Carbamide Peroxide (Carbamide Peroxide 6.5% Otic 15 Ml Drpbtl) 5 drop EAR-BOTH BID [facility] Stop: 04/15/22 15:05 Chlorpromazine HCl (Chlorpromazine Hcl 25 Mg Tablet) 25 mg PO Q4H PRN PRN Reason: agitation. Last Admin: 04/08/22 15:43 Dose: 25 mg Clonazepam (Clonazepam 0.5 Mg Tablet) 0.5 mg PO DAILY PRN PRN Reason: Anxiety Last Admin: 04/09/22 14:48 Dose: 0.5 mg Clonazepam (Clonazepam 0.5 Mg Tablet) 0.75 mg PO BID [facility] Diphenhydramine HCl (Diphenhydramine Hcl 25 Mg Tablet) 50 mg PO TID PRN PRN Reason: itching/agitation Last Admin: 04/08/22 21:30 Dose: 50 mg Docusate Sodium (Docusate Sodium 100 Mg Capsule) 100 mg PO BID [facility] Last Admin: 04/11/22 09:02 Dose: 100 mg Duloxetine HCl (Duloxetine Hcl 60 Mg Capsule.Dr) 120 mg PO DAILY [facility] Last Admin: 04/11/22 09:02 Dose: 120 mg Gabapentin (Gabapentin 400 Mg Capsule) 800 mg PO TID [facility] Last Admin: 04/11/22 14:16 Dose: 800 mg Hydrocortisone (Hydrocortisone 1 % Ointment 28.35 Gm Tube) 1 appl TOPICAL BID [facility]; Protocol Last Admin: 04/11/22 09:04 Dose: Not Given Ibuprofen (Ibuprofen 800 Mg Tablet) 800 mg PO TID@0600,1400,2200 [facility] Lidocaine (Lidocaine 4 % Patch Adh..Patch) 2 patch TRANSDERMA DAILY PRN; Protocol PRN Reason: low back pain Last Admin: 04/04/22 02:44 Dose: 2 patch Lidocaine (Lidocaine 4 % Patch Adh..Patch) 1 patch TRANSDERMA DAILY PRN; Protocol PRN Reason: shoulder pain Last Admin: 04/04/22 20:14 Dose: 1 patch Magnesium Hydroxide (Milk Of Magnesia 30 Ml Oral.Susp) 30 ml PO DAILY PRN PRN Reason: Constipation Last Admin: 04/03/22 15:29 Dose: 30 ml Multi-Ingred Medicated Throat [place] (Throat [place], Medicated 20 Ml Bottle) 1 spray MUCOUS MEM Q2H PRN PRN Reason: Sore Throat Last Admin: 03/28/22 11:16 Dose: 1 spray Nicotine Polacrilex (Nicotine Polacrilex 2 Mg Gum) 2 mg BUCCAL Q1H PRN PRN Reason: Nicotine Cravings Nicotine Polacrilex (Nicotine Polacrilex Lozenge 2 Mg Lozenge) 2 mg BUCCAL Q1H PRN PRN Reason: Nicotine Cravings Last Admin: 04/08/22 07:12 Dose: 2 mg Olanzapine (Olanzapine 10 Mg Vial) 10 mg IM BID PRN PRN Reason: refusal of stanislav jung Last Admin: 03/23/22 21:48 Dose: 10 mg Oxycodone HCl (Oxycodone Hcl Immed Release 5 Mg Tablet) 10 mg PO Q12H PRN PRN Reason: severe pain Last Admin: 04/11/22 13:16 Dose: 10 mg Perphenazine (Perphenazine 8 Mg Tablet) 16 mg PO BID [facility] Last Admin: 04/11/22 09:01 Dose: 16 mg Saliva Substitute (Dry Mouth [place] 60 Ml [place]) 1 spray MUCOUS MEM Q2H PRN PRN Reason: xerostomia Last Admin: 03/28/22 22:16 Dose: 1 spray Senna (Sennosides 8.6 Mg Tablet) 17.2 mg PO DAILY [facility] Last Admin: 04/11/22 08:59 Dose: 17.2 mg Tamsulosin HCl (Tamsulosin Hcl 0.4 Mg Capsule) 0.4 mg PO BEDTIME [facility] Last Admin: 04/10/22 20:39 Dose: 0.4 mg Allergies Allergies Allergy/AdvReac Type Severity Reaction Status Date / Time haloperidol [From HALDOL] Allergy Intermediate UNKNOWN Verified 03/16/22 14:25 Assessment & Plan Assessment & Plan (1) Opioid use disorder: Status: Acute Code(s): F11.90 - Opioid use, unspecified, uncomplicated Assessment and Plan: Patient has history Suboxone daily, prescribed by Dr. Sandoval through [facility]. He reports he no longer wants Suboxone. He expressed interest and methadone. However, he denies any heroin/cocaine use, and is denying any type of cravings or withdrawals at this time. He has several questions, which were answered to his satisfaction, including comparison of methadone and Suboxone. He will contact web content manager if he chooses to have an appointment at a methadone clinic for intake, and to discuss options further. Plan 03/22: continue outpt meds for now.? t/c ranitidine for GERD, incr in gabapentin for pain, trazodone for sleep.? educate re evidence-based mood stabilizers and attempt to get pt to take one of the three. 03/23: agrees to trial of tegretol in place of trileptal.? trileptal DCed and tegretol started at 600 BID.? perphenazine increased to 16 BID and IM back-ups prescribed.? requesting neuro consult to see if any post-lesion syndrome may account for c/o cramps/pain and if there is anything that may be done to help.? thorazine and ativan PRNs prescribed. 03/24: per neuro consult, no need for further neuro w/u or intervention, pt recovering well from myelitis.? check HIV1&2.? steroid cream for rash, artificial saliva/lozenges Rxed.? encouraged to take tegretol, which he had said he would do yesterday but which he has not done (aside from 200 mg). 03/25: rash Dx as scabies, treated yesterday.? took tegretol 600 this morning and reports improved mood today.? encouraged compliance. 03/26: compliant with tegretol past 24H.? appears a bit sedated today; will decrease PRNs.? crural complaints, referred to hospitalist. 03/28: sedated.? decreasing medications which may cause delirium or sedation.? ativan, baclofen, trazodone, hydroxyzine DCed.? started keflex for UTI.? otherwise previous plan continued.? clearly unsteady on his feet, either sedated or getting delirious. 03/29: Patient less sedated alert not aggressive doing better with less sedating medication continue current treatment plan per Dr. Quiñones. 03/30: taper tegretol as likely offender for the rash.? neuro opines likely druge rash.? PT consult for gait.? sensitivities of urine species noted, antibx changed from keflex to nitrofurantoin x 7 days. 03/31: DC tegretol and start trileptal at a 1:1.5 ratio.? pt has tolerated trileptal in the past without adverse reaction.? less sedated today, rash looks a bit better.? keflex also DCed yesterday but rash appears to have begun prior to first dose of keflex. 04/02 dc trileltap low sodium and also risk of rash-increased gabapentin from 600mg tid to 800mg tid and plenty of prns if gets manic. 04/03: much improved mental status from last week.? due either to adequate treatment of UTI with change in antibiotic or DC of tegretol.? trileptal DCed over w/e due to hyponatremia; may need to restart trileptal if mood becomes labile/irritable.? hyponatremia noted within a day or two of DC of tegretol and start of trileptal, meaning it was due to tegretol rather than trileptal.? pt has tolerated trileptal in the past. 04/04: pt clearly more irritable and labile today.? restart trileptal at 450 BID. 04/05: several behavioral outbursts in the past 24H.? increase trileptal to 600 BID.? rash does not appear to be improving. 04/06: skin Bx taken.? rash stable.? appears less irritable today.? no change to mgmt. 04/07: awaiting Bx results.? new/worsened dermatologic condition of blanching deep erythema of head and hands.? ID and hospitalists consulted to evaluate.? initial rash started by 03/24, prior to any new medications.? pt has been on current meds in the past without side effects.? rash suggests drug reaction, however.? does not appear SJS or TEN-like.? initial rash appears as exanthematous rash while secondary rash of the past 24H looks more as if cutaneous small vessel vasculitis rash. 04/08 continue current medications. WBC trending up, w/ eosinophils high. New c/o of tooth ache. will start amoxicillin 500mg po TID x 4 days. 04/09 continue current medications. 04/10: no changes. 04/11: decrease klonopin. debrox for ears. otherwise continue current mgmt. I spent minutes with the patient and/or on the patient floor today, greater than?50% of which was spent counseling/coordinating care. Education Patient educated on: diagnosis, medication risk/benefits and substance abuse Informed Consent: understands
[2022-04-11] MEDS: Nicotine Polacrilex Lozenge 2 MG LOZENGE BUCCAL (18:50)
[2022-04-11] MEDS: clonazePAM 0.5 MG TABLET 0.75 MG PO (19:49)
[2022-04-11 20:45] VITALS: BP 117/63; PULSE 100; RESP 19; TEMP 36.8; O2SAT 98
[2022-04-11] MEDS: diphenhydrAMINE HCL 25 MG TABLET 50 MG PO (20:46)
[2022-04-11] MEDS: Tamsulosin HCL 0.4 MG CAPSULE PO (20:47)
[2022-04-11] MEDS: Calcium Carbonate 750 MG TAB.CHEW PO (22:44)
[2022-04-11 22:45] VITALS: BP 120/62; PULSE 109; RESP 20; TEMP 37.1; O2SAT 97
[2022-04-12] MEDS: oxyCODONE HCl Immed Release 5 MG TABLET 10 MG PO (06:34)
[2022-04-12 07:29] VITALS: BP 119/67; PULSE 92; RESP 17; TEMP 36.8; O2SAT 100
[2022-04-12] MEDS: clonazePAM 0.5 MG TABLET 0.75 MG PO ×2 (08:45→22:30)
[2022-04-12] MEDS: Gabapentin 400 MG CAPSULE 800 MG PO ×3 (08:46→22:30)
[2022-04-12] MEDS: Amoxicillin 500 MG CAPSULE PO (08:46)
[2022-04-12] MEDS: Benztropine Mesylate 1 MG TABLET PO ×3 (08:46→22:29)
[2022-04-12] MEDS: DULoxetine HCl 60 MG CAPSULE.DR 120 MG PO (08:46)
[2022-04-12] MEDS: Docusate Sodium 100 MG CAPSULE PO ×2 (08:46→22:29)
[2022-04-12] MEDS: Sennosides 8.6 MG TABLET 17.2 MG PO (08:46)
[2022-04-12] MEDS: Perphenazine 8 MG TABLET 16 MG PO ×2 (08:46→22:29)
[2022-04-12] MEDS: Ibuprofen 800 MG TABLET PO ×3 (08:47→22:31)
[2022-04-12] MEDS: Dry Mouth Spray 60 ML SPRAY 1 SPRAY MUCOUS MEM (08:57)
[2022-04-12] MEDS: Carbamide Peroxide 6.5% Otic 15 ML DRPBTL 5 DROP EAR-BOTH ×2 (08:58→23:27)
[2022-04-12 09:01] VITALS: BP 109/55; PULSE 93; TEMP 36.6; O2SAT 99
[2022-04-12] MEDS: Hydrocortisone 1 % Ointment 28.35 GM TUBE 1 APPL TOPICAL ×2 (09:39→20:53)
--- NOTE | 2022-04-12 15:30 | P.PNIM_ITS ---
Subjective Subjective Date of Service: 04/12/22 Interval History: Seen and evaluated this afternoon Complaining of generalized rash that is getting worse Denies significant itching but reported having some No reported overnight events Review of Systems Review of Systems: Yes all other systems are reviewed and are negative Physical Exam Vital Signs: Vital Signs: Last Vital Signs Temp 97.9 F 04/12/22 09:01 Pulse 93 04/12/22 09:01 Resp 17 04/12/22 07:29 BP 109/55 L 04/12/22 09:01 Pulse Ox 99 04/12/22 09:01 O2 Del Method 04/12/22 09:01 BMI result Body Mass Index 29.4 Const: Other: Constitutional : Alert, oriented, not in distress Neck : Normal inspection, Supple Cardiovascular : RRR, no JVP, no lower extremity edema Respiratory : fair bilateral air entry, no crackles, wheezes or rhonchi Gastrointestinal: soft, lax, Normal bowel sounds, Non tender Skin : Warm, Dry, generalized maculopapular eruption involving trunk, abdomen, upper and lower extremities, with areas of scaling in his face, scalp. Edema involving both upper extremities. Neurological : Alert & oriented x3, No focal deficit , CN 2-12 within normal Objective Data Active Medications Acetaminophen (Acetaminophen 325 Mg Tablet) 650 mg PO Q6H PRN PRN Reason: Headache/Pain Mild Scale (1-3) Last Admin: 04/11/22 06:02 Dose: 650 mg Documented By: ADRIANA Al Hydroxide/Mg Hydroxide (Magnesium Hydrox/Alum Hydrox 30 Ml Oral.Susp) 30 ml PO Q6H PRN PRN Reason: Heartburn/Nausea Last Admin: 04/04/22 00:42 Dose: 30 ml Documented By: HARSHIL Benzocaine (Throat Lozenge, Medicated Lozenge) 1 lozenge MUCOUS MEM Q1H PRN PRN Reason: xerostomia Last Admin: 03/27/22 06:10 Dose: 1 lozenge Documented By: FLEMINM Benzocaine (Benzocaine 20 % Oral Gel 9 Gm Tube) 1 appl MUCOUS MEM QID PRN; Protocol PRN Reason: tooth pain Last Admin: 04/10/22 20:38 Dose: 1 appl Documented By: ADRIANA Benztropine Mesylate (Benztropine Mesylate 1 Mg Tablet) 1 mg PO TID [facility] Last Admin: 04/12/22 14:30 Dose: 1 mg Documented By: PORTIA Calcium Carbonate (Calcium Carbonate 750 Mg Tab.Chew) 750 mg PO Q4H PRN PRN Reason: Dyspepsia Last Admin: 04/11/22 22:44 Dose: 750 mg Documented By: DEIDRA Carbamide Peroxide (Carbamide Peroxide 6.5% Otic 15 Ml Drpbtl) 5 drop EAR-BOTH BID [facility] Stop: 04/15/22 15:05 Last Admin: 04/12/22 08:58 Dose: 5 drop Documented By: PORTIA Chlorpromazine HCl (Chlorpromazine Hcl 25 Mg Tablet) 25 mg PO Q4H PRN PRN Reason: agitation. Last Admin: 04/08/22 15:43 Dose: 25 mg Documented By: DANYA Clonazepam (Clonazepam 0.5 Mg Tablet) 0.5 mg PO DAILY PRN PRN Reason: Anxiety Last Admin: 04/09/22 14:48 Dose: 0.5 mg Documented By: DANYA Clonazepam (Clonazepam 0.5 Mg Tablet) 0.75 mg PO BID [facility] Last Admin: 04/12/22 08:45 Dose: 0.75 mg Documented By: PORTIA Diphenhydramine HCl (Diphenhydramine Hcl 25 Mg Tablet) 50 mg PO TID PRN PRN Reason: itching/agitation Last Admin: 04/11/22 20:46 Dose: 50 mg Documented By: DEIDRA Docusate Sodium (Docusate Sodium 100 Mg Capsule) 100 mg PO BID [facility] Last Admin: 04/12/22 08:46 Dose: 100 mg Documented By: PORTIA Duloxetine HCl (Duloxetine Hcl 60 Mg Capsule.Dr) 120 mg PO DAILY [facility] Last Admin: 04/12/22 08:46 Dose: 120 mg Documented By: PORTIA Gabapentin (Gabapentin 400 Mg Capsule) 800 mg PO TID [facility] Last Admin: 04/12/22 14:31 Dose: 800 mg Documented By: PORTIA Hydrocortisone (Hydrocortisone 1 % Ointment 28.35 Gm Tube) 1 appl TOPICAL BID [facility]; Protocol Last Admin: 04/12/22 09:39 Dose: 1 appl Documented By: PORTIA Ibuprofen (Ibuprofen 800 Mg Tablet) 800 mg PO TID@0600,1400,2200 [facility] Last Admin: 04/12/22 14:30 Dose: 800 mg Documented By: PORTIA Lactic Acid (Ammonium Lactate 12 % Lotion 226 Gm Bottle) 1 appl TOPICAL BID [facility]; Protocol Lidocaine (Lidocaine 4 % Patch Adh..Patch) 2 patch TRANSDERMA DAILY PRN; Protocol PRN Reason: low back pain Last Admin: 04/04/22 02:44 Dose: 2 patch Documented By: ROSEMARIE Lidocaine (Lidocaine 4 % Patch Adh..Patch) 1 patch TRANSDERMA DAILY PRN; Protocol PRN Reason: shoulder pain Last Admin: 04/04/22 20:14 Dose: 1 patch Documented By: HERB-PHA Magnesium Hydroxide (Milk Of Magnesia 30 Ml Oral.Susp) 30 ml PO DAILY PRN PRN Reason: Constipation Last Admin: 04/03/22 15:29 Dose: 30 ml Documented By: YOAV Multi-Ingred Medicated Throat [place] (Throat [place], Medicated 20 Ml Bottle) 1 spray MUCOUS MEM Q2H PRN PRN Reason: Sore Throat Last Admin: 04/12/22 06:35 Dose: 1 spray Documented By: DEIDRA Nicotine Polacrilex (Nicotine Polacrilex 2 Mg Gum) 2 mg BUCCAL Q1H PRN PRN Reason: Nicotine Cravings Nicotine Polacrilex (Nicotine Polacrilex Lozenge 2 Mg Lozenge) 2 mg BUCCAL Q1H PRN PRN Reason: Nicotine Cravings Last Admin: 04/11/22 18:50 Dose: 2 mg Documented By: PITO Olanzapine (Olanzapine 10 Mg Vial) 10 mg IM BID PRN PRN Reason: refusal of trilafon, per yogesh Last Admin: 03/23/22 21:48 Dose: 10 mg Documented By: CLARITA Oxycodone HCl (Oxycodone Hcl Immed Release 5 Mg Tablet) 10 mg PO Q12H PRN PRN Reason: severe pain Last Admin: 04/12/22 06:34 Dose: 10 mg Documented By: DEIDRA Perphenazine (Perphenazine 8 Mg Tablet) 16 mg PO BID [facility] Last Admin: 04/12/22 08:46 Dose: 16 mg Documented By: PORTIA Prednisone (Prednisone 20 Mg Tablet) 40 mg PO BIDWM [facility] Saliva Substitute (Dry Mouth [place] 60 Ml [place]) 1 spray MUCOUS MEM Q2H PRN PRN Reason: xerostomia Last Admin: 04/12/22 08:57 Dose: 1 spray Documented By: PORTIA Senna (Sennosides 8.6 Mg Tablet) 17.2 mg PO DAILY [facility] Last Admin: 04/12/22 08:46 Dose: 17.2 mg Documented By: PORTIA Tamsulosin HCl (Tamsulosin Hcl 0.4 Mg Capsule) 0.4 mg PO BEDTIME [facility] Last Admin: 04/11/22 20:47 Dose: 0.4 mg Documented By: DEIDRA Triamcinolone Acetonide (Triamcinolone Acet 0.1 % Cream 15 Gm Tube) 1 appl TOPICAL DAILY [facility]; Protocol Labs CBC & Chem 7: 04/10/22 08:24 04/09/22 07:36 Assessment and Plan (1) Rash: Status: Acute Plan 51 years old with PMH of schizophrenia, substance abuse, demyelinating disease who developed progressive rash that has been getting worse over the course of hospital stay. Generalized Skin rash Worsening since admission Thought to be secondary to medications, Trileptal, IVIG Skin biopsy showing spongiotic dermatitis, likely allergic reaction to medication or food Concern over DRESS syndrome Check blood work of CRP, LDH, ESR, NICCI, liver and kidney functions Check serology for herpes, CMV and EBV Start p.o. prednisone 1 milligram/kg Start on ammonia lactate lotion and local steroids Benadryl as needed for itching Will need dermatology evaluation upon discharge, we do not have dermatology service inpatient Will continue to monitor the patient with you. Quality Stroke Does the patient have a stroke diagnosis?: No VTE Prior VTE?: No VTE Risk Level:: Medical - low VTE Device Contraindication: Treatment Not Indicated VTE Drug Contraindication: Treatment Not Indicated
[2022-04-12] MEDS: predniSONE 20 MG TABLET 40 MG PO ×2 (15:41→16:55)
--- NOTE | 2022-04-12 16:04 | HO.PSYCHPN ---
Subjective Subjective Date of Service: 04/12/22 Reason For Visit: Psychosis Interim History: calm, cooperative. skin around the face loose and erythematous. hands remain erythematous and swollen. most of body appears covered in erythematous exanthum. fell off bed this morning and hit head, had CT done this morning. feels emotionally/psychologically he is well. physically is another story. medicine asked to come back and evaluate his case, wound care consult placed. per staff, polite, less irritable. c/o cold feet. denies psych Sx. fell off bed this morning and hit his head. Mental Status Exam Mental Status Exam Narrative: cooperative. less PMR. speech nml in rate, decr in amount, clear. flattened tone, nml latency, nml loudness. thoughts linear and logical. affect constricted, normo-intense, non-labile. mood not assessed. no SI/HI/AVH expressed. Diagnostics Vital Signs (24Hr): Vital Signs - 24 hr 04/11/22 20:45 04/11/22 22:45 04/12/22 07:29 Temperature 98.3 F 98.7 F 98.2 F Pulse Rate 100 109 H 92 Respiratory Rate 19 20 17 Blood Pressure 117/63 120/62 119/67 Pulse Oximetry 98 97 100 Oxygen Delivery Method Room Air Room Air Room Air 04/12/22 09:01 Temperature 97.9 F Pulse Rate 93 Respiratory Rate Blood Pressure 109/55 L Pulse Oximetry 99 Oxygen Delivery Method Room Air BMI result Body Mass Index 29.4 Labs Results: 04/10/22 08:24 04/09/22 07:36 Imaging Radiology Impressions: ITS Impressions Head CT 03/20/22 23:40 IMPRESSION: No acute intracranial pathology. 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 Otherwise unremarkable examination. No acute intracranial hemorrhage. Medications Medications Current Medications Acetaminophen (Acetaminophen 325 Mg Tablet) 650 mg PO Q6H PRN PRN Reason: Headache/Pain Mild Scale (1-3) Last Admin: 04/11/22 06:02 Dose: 650 mg Al Hydroxide/Mg Hydroxide (Magnesium Hydrox/Alum Hydrox 30 Ml Oral.Susp) 30 ml PO Q6H PRN PRN Reason: Heartburn/Nausea Last Admin: 04/04/22 00:42 Dose: 30 ml Benzocaine (Throat Lozenge, Medicated Lozenge) 1 lozenge MUCOUS MEM Q1H PRN PRN Reason: xerostomia Last Admin: 03/27/22 06:10 Dose: 1 lozenge Benzocaine (Benzocaine 20 % Oral Gel 9 Gm Tube) 1 appl MUCOUS MEM QID PRN; Protocol PRN Reason: tooth pain Last Admin: 04/10/22 20:38 Dose: 1 appl Benztropine Mesylate (Benztropine Mesylate 1 Mg Tablet) 1 mg PO TID [facility] Last Admin: 04/12/22 14:30 Dose: 1 mg Calcium Carbonate (Calcium Carbonate 750 Mg Tab.Chew) 750 mg PO Q4H PRN PRN Reason: Dyspepsia Last Admin: 04/11/22 22:44 Dose: 750 mg Carbamide Peroxide (Carbamide Peroxide 6.5% Otic 15 Ml Drpbtl) 5 drop EAR-BOTH BID [facility] Stop: 04/15/22 15:05 Last Admin: 04/12/22 08:58 Dose: 5 drop Chlorpromazine HCl (Chlorpromazine Hcl 25 Mg Tablet) 25 mg PO Q4H PRN PRN Reason: agitation. Last Admin: 04/08/22 15:43 Dose: 25 mg Clonazepam (Clonazepam 0.5 Mg Tablet) 0.5 mg PO DAILY PRN PRN Reason: Anxiety Last Admin: 04/09/22 14:48 Dose: 0.5 mg Clonazepam (Clonazepam 0.5 Mg Tablet) 0.75 mg PO BID [facility] Last Admin: 04/12/22 08:45 Dose: 0.75 mg Diphenhydramine HCl (Diphenhydramine Hcl 25 Mg Tablet) 50 mg PO TID PRN PRN Reason: itching/agitation Last Admin: 04/11/22 20:46 Dose: 50 mg Docusate Sodium (Docusate Sodium 100 Mg Capsule) 100 mg PO BID [facility] Last Admin: 04/12/22 08:46 Dose: 100 mg Duloxetine HCl (Duloxetine Hcl 60 Mg Capsule.Dr) 120 mg PO DAILY [facility] Last Admin: 04/12/22 08:46 Dose: 120 mg Gabapentin (Gabapentin 400 Mg Capsule) 800 mg PO TID [facility] Last Admin: 04/12/22 14:31 Dose: 800 mg Hydrocortisone (Hydrocortisone 1 % Ointment 28.35 Gm Tube) 1 appl TOPICAL BID [facility]; Protocol Last Admin: 04/12/22 09:39 Dose: 1 appl Ibuprofen (Ibuprofen 800 Mg Tablet) 800 mg PO TID@0600,1400,2200 [facility] Last Admin: 04/12/22 14:30 Dose: 800 mg Lactic Acid (Ammonium Lactate 12 % Lotion 226 Gm Bottle) 1 appl TOPICAL BID [facility]; Protocol Lidocaine (Lidocaine 4 % Patch Adh..Patch) 2 patch TRANSDERMA DAILY PRN; Protocol PRN Reason: low back pain Last Admin: 04/04/22 02:44 Dose: 2 patch Lidocaine (Lidocaine 4 % Patch Adh..Patch) 1 patch TRANSDERMA DAILY PRN; Protocol PRN Reason: shoulder pain Last Admin: 04/04/22 20:14 Dose: 1 patch Magnesium Hydroxide (Milk Of Magnesia 30 Ml Oral.Susp) 30 ml PO DAILY PRN PRN Reason: Constipation Last Admin: 04/03/22 15:29 Dose: 30 ml Multi-Ingred Medicated Throat [place] (Throat [place], Medicated 20 Ml Bottle) 1 spray MUCOUS MEM Q2H PRN PRN Reason: Sore Throat Last Admin: 04/12/22 06:35 Dose: 1 spray Nicotine Polacrilex (Nicotine Polacrilex 2 Mg Gum) 2 mg BUCCAL Q1H PRN PRN Reason: Nicotine Cravings Nicotine Polacrilex (Nicotine Polacrilex Lozenge 2 Mg Lozenge) 2 mg BUCCAL Q1H PRN PRN Reason: Nicotine Cravings Last Admin: 04/11/22 18:50 Dose: 2 mg Olanzapine (Olanzapine 10 Mg Vial) 10 mg IM BID PRN PRN Reason: refusal of stanislav jung Last Admin: 03/23/22 21:48 Dose: 10 mg Oxycodone HCl (Oxycodone Hcl Immed Release 5 Mg Tablet) 10 mg PO Q12H PRN PRN Reason: severe pain Last Admin: 04/12/22 06:34 Dose: 10 mg Perphenazine (Perphenazine 8 Mg Tablet) 16 mg PO BID [facility] Last Admin: 04/12/22 08:46 Dose: 16 mg Prednisone (Prednisone 20 Mg Tablet) 40 mg PO BIDWM [facility] Last Admin: 04/12/22 15:41 Dose: 40 mg Saliva Substitute (Dry Mouth [place] 60 Ml [place]) 1 spray MUCOUS MEM Q2H PRN PRN Reason: xerostomia Last Admin: 04/12/22 08:57 Dose: 1 spray Senna (Sennosides 8.6 Mg Tablet) 17.2 mg PO DAILY [facility] Last Admin: 04/12/22 08:46 Dose: 17.2 mg Tamsulosin HCl (Tamsulosin Hcl 0.4 Mg Capsule) 0.4 mg PO BEDTIME [facility] Last Admin: 04/11/22 20:47 Dose: 0.4 mg Triamcinolone Acetonide (Triamcinolone Acet 0.1 % Cream 15 Gm Tube) 1 appl TOPICAL DAILY [facility]; Protocol Allergies Allergies Allergy/AdvReac Type Severity Reaction Status Date / Time haloperidol [From HALDOL] Allergy Intermediate UNKNOWN Verified 03/16/22 14:25 Assessment & Plan Assessment & Plan (1) Rash: Status: Acute Code(s): R21 - Rash and other nonspecific skin eruption Assessment and Plan: 51 years old with PMH of schizophrenia, substance abuse, demyelinating disease who developed progressive rash that has been getting worse over the course of hospital stay. Generalized Skin rash Worsening since admission Thought to be secondary to medications, Trileptal, IVIG Skin biopsy showing spongiotic dermatitis, likely allergic reaction to medication or food Concern over DRESS syndrome Check blood work of CRP, LDH, ESR, NICCI, liver and kidney functions Check serology for herpes, CMV and EBV Start p.o. prednisone 1 milligram/kg Start on ammonia lactate lotion and local steroids Benadryl as needed for itching Will need dermatology evaluation upon discharge, we do not have dermatology service inpatient Will continue to monitor the patient with you. (2) Schizophrenia: Qualifiers: Schizophrenia type: paranoid schizophrenia Qualified Code(s): F20.0 - Paranoid schizophrenia Status: Acute Code(s): F20.9 - Schizophrenia, unspecified (3) Myelitis: Status: Acute Code(s): G04.91 - Myelitis, unspecified Plan 03/22: continue outpt meds for now.? t/c ranitidine for GERD, incr in gabapentin for pain, trazodone for sleep.? educate re evidence-based mood stabilizers and attempt to get pt to take one of the three. 03/23: agrees to trial of tegretol in place of trileptal.? trileptal DCed and tegretol started at 600 BID.? perphenazine increased to 16 BID and IM back-ups prescribed.? requesting neuro consult to see if any post-lesion syndrome may account for c/o cramps/pain and if there is anything that may be done to help.? thorazine and ativan PRNs prescribed. 03/24: per neuro consult, no need for further neuro w/u or intervention, pt recovering well from myelitis.? check HIV1&2.? steroid cream for rash, artificial saliva/lozenges Rxed.? encouraged to take tegretol, which he had said he would do yesterday but which he has not done (aside from 200 mg). 03/25: rash Dx as scabies, treated yesterday.? took tegretol 600 this morning and reports improved mood today.? encouraged compliance. 03/26: compliant with tegretol past 24H.? appears a bit sedated today; will decrease PRNs.? crural complaints, referred to hospitalist. 03/28: sedated.? decreasing medications which may cause delirium or sedation.? ativan, baclofen, trazodone, hydroxyzine DCed.? started keflex for UTI.? otherwise previous plan continued.? clearly unsteady on his feet, either sedated or getting delirious. 03/29: Patient less sedated alert not aggressive doing better with less sedating medication continue current treatment plan per Dr. Quiñones. 03/30: taper tegretol as likely offender for the rash.? neuro opines likely druge rash.? PT consult for gait.? sensitivities of urine species noted, antibx changed from keflex to nitrofurantoin x 7 days. 03/31: DC tegretol and start trileptal at a 1:1.5 ratio.? pt has tolerated trileptal in the past without adverse reaction.? less sedated today, rash looks a bit better.? keflex also DCed yesterday but rash appears to have begun prior to first dose of keflex. 04/02 dc trileltap low sodium and also risk of rash-increased gabapentin from 600mg tid to 800mg tid and plenty of prns if gets manic. 04/03: much improved mental status from last week.? due either to adequate treatment of UTI with change in antibiotic or DC of tegretol.? trileptal DCed over w/e due to hyponatremia; may need to restart trileptal if mood becomes labile/irritable.? hyponatremia noted within a day or two of DC of tegretol and start of trileptal, meaning it was due to tegretol rather than trileptal.? pt has tolerated trileptal in the past. 04/04: pt clearly more irritable and labile today.? restart trileptal at 450 BID. 04/05: several behavioral outbursts in the past 24H.? increase trileptal to 600 BID.? rash does not appear to be improving. 04/06: skin Bx taken.? rash stable.? appears less irritable today.? no change to mgmt. 04/07: awaiting Bx results.? new/worsened dermatologic condition of blanching deep erythema of head and hands.? ID and hospitalists consulted to evaluate.? initial rash started by 03/24, prior to any new medications.? pt has been on current meds in the past without side effects.? rash suggests drug reaction, however.? does not appear SJS or TEN-like.? initial rash appears as exanthematous rash while secondary rash of the past 24H looks more as if cutaneous small vessel vasculitis rash. 04/08 continue current medications. WBC trending up, w/ eosinophils high. New c/o of tooth ache. will start amoxicillin 500mg po TID x 4 days. 04/09 continue current medications. 04/10: no changes. 04/11: decrease klonopin.? debrox for ears.? otherwise continue current mgmt. 04/12: decrease klonopin. seen by medicine, see recs above. wound care consult placed. I spent __45____ minutes with the patient and/or on the patient floor today, greater than?50% of which was spent counseling/coordinating care. Reason for contiued inpatient stay Substantial Risk for: inability to function and rapid decompensation
[2022-04-12 16:56] LABS: Alanine Aminotransferase 38 U/L (0-40); Albumin Level 3.9 g/dL (3.5-5.0); Alkaline Phosphatase 59 U/L (39-117); Anion Gap 12 (12-20); Aspartate Amino Transferase 27 U/L (5-37); Bilirubin Direct < 0.2 mg/dL (0.0-0.5); Bilirubin Total 0.2 mg/dL (0.0-1.0); Blood Urea Nitrogen 18 mg/dL (9-16); C Reactive Protein 4.72 mg/dL (< or = 0.50); Calcium 8.9 mg/dL (8.4-10.2); Carbon Dioxide 29 mmol/L (22-29); Chloride 104 mmol/L (96-108); Creatinine Clr Calc Pharmacy 110.7; Estimated Glomerular Filt Rate > 60; Glucose Random 151 mg/dL (60-115); Lactate Dehydrogenase 221 U/L (118-273); Potassium 4.2 mmol/L (3.3-5.1); Sodium 141 mmol/L (135-145); Total Protein 6.9 g/dL (6.5-8.0)
[2022-04-12 18:00] VITALS: BP 135/79; PULSE 105; TEMP 36.7; O2SAT 96
[2022-04-12] MEDS: Nicotine Polacrilex Lozenge 2 MG LOZENGE BUCCAL (18:57)
[2022-04-12] MEDS: clonazePAM 0.5 MG TABLET PO (19:08)
[2022-04-12] MEDS: Ammonium Lactate 12 % Lotion 226 GM BOTTLE 1 APPL TOPICAL (20:53)
[2022-04-12] MEDS: Calcium Carbonate 750 MG TAB.CHEW PO (22:10)
[2022-04-12] MEDS: Tamsulosin HCL 0.4 MG CAPSULE PO (22:30)
[2022-04-13 01:10] LABS: Appearance Urine CLEAR; Color Urine DK YELLOW; Glucose Urine UA NEG (NEG); Leukocyte Esterase Urine NEG (NEG); Nitrite Urine NEG (NEG); PH 6.5 (5.0-8.0); Urine Blood NEG (NEG); Urine Ketones NEG (NEG); Urine Protein NEG (NEG-TRACE)
[2022-04-13] MEDS: oxyCODONE HCl Immed Release 5 MG TABLET 10 MG PO (04:42)
[2022-04-13] MEDS: Ibuprofen 800 MG TABLET PO ×3 (06:40→21:51)
[2022-04-13 07:00] VITALS: BMI 32.1
[2022-04-13] MEDS: Perphenazine 8 MG TABLET 16 MG PO ×2 (08:48→21:50)
[2022-04-13] MEDS: Gabapentin 400 MG CAPSULE 800 MG PO ×3 (08:48→21:50)
[2022-04-13] MEDS: DULoxetine HCl 60 MG CAPSULE.DR 120 MG PO (08:48)
[2022-04-13] MEDS: Sennosides 8.6 MG TABLET 17.2 MG PO (08:49)
[2022-04-13] MEDS: Benztropine Mesylate 1 MG TABLET PO ×3 (08:49→21:51)
[2022-04-13] MEDS: predniSONE 20 MG TABLET 40 MG PO ×2 (08:49→16:22)
[2022-04-13] MEDS: clonazePAM 0.5 MG TABLET PO ×2 (08:49→12:14)
[2022-04-13] MEDS: Docusate Sodium 100 MG CAPSULE PO ×2 (08:50→21:51)
[2022-04-13 09:31] VITALS: BP 107/63; PULSE 83; RESP 16; TEMP 36.7; O2SAT 99
[2022-04-13] MEDS: Ammonium Lactate 12 % Lotion 226 GM BOTTLE 1 APPL TOPICAL ×2 (12:15→23:02)
[2022-04-13] MEDS: Carbamide Peroxide 6.5% Otic 15 ML DRPBTL 5 DROP EAR-BOTH ×2 (12:15→23:02)
[2022-04-13] MEDS: Triamcinolone Acet 0.1 % Cream 15 GM TUBE 1 APPL TOPICAL (12:15)
[2022-04-13] MEDS: Hydrocortisone 1 % Ointment 28.35 GM TUBE 1 APPL TOPICAL ×2 (12:15→23:02)
--- NOTE | 2022-04-13 14:59 | P.PNPSI_ITS ---
Subjective Subjective Date of Service: 04/13/22 Reason For Visit: Psychosis Interim History: calm, cooperative. up and about the unit, which is better than past few days. also, face/scalp appear less erythematous. hands still red and puffy. c/o chronic pain, states moodwise he is doing well. no questions or complaints. per staff, active and appropriate. restarting prednisone per medicine recs. labs pending and wound care consult pending. poor sleep last night due to pain. looking much better physically. Mental Status Exam Mental Status Exam Narrative: cooperative. less PMR. speech nml in rate, decr in amount, clear. flattened tone, nml latency, nml loudness. thoughts linear and logical. affect constricted, normo-intense, non-labile. mood euthymic. no SI/HI/AVH expressed. Diagnostics Vital Signs (24Hr): Vital Signs - 24 hr 04/12/22 18:00 04/13/22 09:31 Temperature 98.1 F 98.0 F Pulse Rate 105 H 83 Respiratory Rate 16 Blood Pressure 135/79 107/63 Pulse Oximetry 96 99 Oxygen Delivery Method Room Air Room Air BMI result Body Mass Index 32.1 Labs Results: 04/10/22 08:24 04/12/22 15:46 Labs: Laboratory Results - last 48 hr 04/12/22 04/12/22 01:00 15:46 Sodium 141 Potassium 4.2 Chloride 104 Carbon Dioxide 29 Anion Gap 12 BUN 18 H Creatinine 0.76 Estim Creat Clear Calc 110.7 Estimated GFR > 60 Random Glucose 151 H Calcium 8.9 Total Bilirubin 0.2 Direct Bilirubin < 0.2 AST 27 ALT 38 Alkaline Phosphatase 59 Lactate Dehydrogenase 221 C-Reactive Protein 4.72 H Total Protein 6.9 Albumin 3.9 Urine Color DK YELLOW Urine Appearance CLEAR Urine pH 6.5 Ur Specific [place] 1.020 Urine Protein NEG Urine Glucose (UA) NEG Urine Ketones NEG Urine Blood NEG Urine Nitrite NEG Ur Leukocyte Esterase NEG Imaging Radiology Impressions: ITS Impressions Head CT 03/20/22 23:40 IMPRESSION: No acute intracranial pathology. 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 Otherwise unremarkable examination. No acute intracranial hemorrhage. Medications Medications Current Medications Acetaminophen (Acetaminophen 325 Mg Tablet) 650 mg PO Q6H PRN PRN Reason: Headache/Pain Mild Scale (1-3) Last Admin: 04/11/22 06:02 Dose: 650 mg Al Hydroxide/Mg Hydroxide (Magnesium Hydrox/Alum Hydrox 30 Ml Oral.Susp) 30 ml PO Q6H PRN PRN Reason: Heartburn/Nausea Last Admin: 04/04/22 00:42 Dose: 30 ml Benzocaine (Throat Lozenge, Medicated Lozenge) 1 lozenge MUCOUS MEM Q1H PRN PRN Reason: xerostomia Last Admin: 03/27/22 06:10 Dose: 1 lozenge Benzocaine (Benzocaine 20 % Oral Gel 9 Gm Tube) 1 appl MUCOUS MEM QID PRN; Protocol PRN Reason: tooth pain Last Admin: 04/10/22 20:38 Dose: 1 appl Benztropine Mesylate (Benztropine Mesylate 1 Mg Tablet) 1 mg PO TID [facility] Last Admin: 04/13/22 14:33 Dose: 1 mg Calcium Carbonate (Calcium Carbonate 750 Mg Tab.Chew) 750 mg PO Q4H PRN PRN Reason: Dyspepsia Last Admin: 04/12/22 22:10 Dose: 750 mg Carbamide Peroxide (Carbamide Peroxide 6.5% Otic 15 Ml Drpbtl) 5 drop EAR-BOTH BID [facility] Stop: 04/15/22 15:05 Last Admin: 04/13/22 12:15 Dose: 5 drop Chlorpromazine HCl (Chlorpromazine Hcl 25 Mg Tablet) 25 mg PO Q4H PRN PRN Reason: agitation. Last Admin: 04/08/22 15:43 Dose: 25 mg Clonazepam (Clonazepam 0.5 Mg Tablet) 0.5 mg PO DAILY PRN PRN Reason: Anxiety Last Admin: 04/13/22 12:14 Dose: 0.5 mg Clonazepam (Clonazepam 0.5 Mg Tablet) 0.75 mg PO BEDTIME [facility] Last Admin: 04/12/22 22:30 Dose: 0.75 mg Clonazepam (Clonazepam 0.5 Mg Tablet) 0.5 mg PO DAILY [facility] Last Admin: 04/13/22 08:49 Dose: 0.5 mg Diphenhydramine HCl (Diphenhydramine Hcl 25 Mg Tablet) 50 mg PO TID PRN PRN Reason: itching/agitation Last Admin: 04/11/22 20:46 Dose: 50 mg Docusate Sodium (Docusate Sodium 100 Mg Capsule) 100 mg PO BID [facility] Last Admin: 04/13/22 08:50 Dose: 100 mg Duloxetine HCl (Duloxetine Hcl 60 Mg Capsule.Dr) 120 mg PO DAILY [facility] Last Admin: 04/13/22 08:48 Dose: 120 mg Gabapentin (Gabapentin 400 Mg Capsule) 800 mg PO TID [facility] Last Admin: 04/13/22 14:34 Dose: 800 mg Hydrocortisone (Hydrocortisone 1 % Ointment 28.35 Gm Tube) 1 appl TOPICAL BID [facility]; Protocol Last Admin: 04/13/22 12:15 Dose: 1 appl Ibuprofen (Ibuprofen 800 Mg Tablet) 800 mg PO TID@0600,1400,2200 [facility] Last Admin: 04/13/22 14:33 Dose: 800 mg Lactic Acid (Ammonium Lactate 12 % Lotion 226 Gm Bottle) 1 appl TOPICAL BID [facility]; Protocol Last Admin: 04/13/22 12:15 Dose: 1 appl Lidocaine (Lidocaine 4 % Patch Adh..Patch) 2 patch TRANSDERMA DAILY PRN; Protocol PRN Reason: low back pain Last Admin: 04/04/22 02:44 Dose: 2 patch Lidocaine (Lidocaine 4 % Patch Adh..Patch) 1 patch TRANSDERMA DAILY PRN; Protocol PRN Reason: shoulder pain Last Admin: 04/04/22 20:14 Dose: 1 patch Magnesium Hydroxide (Milk Of Magnesia 30 Ml Oral.Susp) 30 ml PO DAILY PRN PRN Reason: Constipation Last Admin: 04/03/22 15:29 Dose: 30 ml Multi-Ingred Medicated Throat [place] (Throat [place], Medicated 20 Ml Bottle) 1 s pray MUCOUS MEM Q2H PRN PRN Reason: Sore Throat Last Admin: 04/12/22 06:35 Dose: 1 spray Nicotine Polacrilex (Nicotine Polacrilex 2 Mg Gum) 2 mg BUCCAL Q1H PRN PRN Reason: Nicotine Cravings Nicotine Polacrilex (Nicotine Polacrilex Lozenge 2 Mg Lozenge) 2 mg BUCCAL Q1H PRN PRN Reason: Nicotine Cravings Last Admin: 04/12/22 18:57 Dose: 2 mg Olanzapine (Olanzapine 10 Mg Vial) 10 mg IM BID PRN PRN Reason: refusal of stanislav jung Last Admin: 03/23/22 21:48 Dose: 10 mg Oxycodone HCl (Oxycodone Hcl Immed Release 5 Mg Tablet) 10 mg PO Q12H PRN PRN Reason: severe pain Last Admin: 04/13/22 04:42 Dose: 10 mg Perphenazine (Perphenazine 8 Mg Tablet) 16 mg PO BID [facility] Last Admin: 04/13/22 08:48 Dose: 16 mg Prednisone (Prednisone 20 Mg Tablet) 40 mg PO BIDWM [facility] Last Admin: 04/13/22 08:49 Dose: 40 mg Saliva Substitute (Dry Mouth [place] 60 Ml [place]) 1 spray MUCOUS MEM Q2H PRN PRN Reason: xerostomia Last Admin: 04/12/22 08:57 Dose: 1 spray Senna (Sennosides 8.6 Mg Tablet) 17.2 mg PO DAILY [facility] Last Admin: 04/13/22 08:49 Dose: 17.2 mg Tamsulosin HCl (Tamsulosin Hcl 0.4 Mg Capsule) 0.4 mg PO BEDTIME [facility] Last Admin: 04/12/22 22:30 Dose: 0.4 mg Triamcinolone Acetonide (Triamcinolone Acet 0.1 % Cream 15 Gm Tube) 1 appl TOPICAL DAILY [facility]; Protocol Last Admin: 04/13/22 12:15 Dose: 1 appl Allergies Allergies Allergy/AdvReac Type Severity Reaction Status Date / Time haloperidol [From HALDOL] Allergy Intermediate UNKNOWN Verified 03/16/22 14:25 Assessment & Plan Assessment & Plan (1) Rash: Status: Acute Code(s): R21 - Rash and other nonspecific skin eruption Assessment and Plan: 51 years old with PMH of schizophrenia, substance abuse, demyelinating disease who developed progressive rash that has been getting worse over the course of hospital stay. Generalized Skin rash Worsening since admission Thought to be secondary to medications, Trileptal, IVIG Skin biopsy showing spongiotic dermatitis, likely allergic reaction to medication or food Concern over DRESS syndrome Check blood work of CRP, LDH, ESR, NICCI, liver and kidney functions Check serology for herpes, CMV and EBV Start p.o. prednisone 1 milligram/kg Start on ammonia lactate lotion and local steroids Benadryl as needed for itching Will need dermatology evaluation upon discharge, we do not have dermatology service inpatient Will continue to monitor the patient with you. (2) Schizophrenia: Qualifiers: Schizophrenia type: paranoid schizophrenia Qualified Code(s): F20.0 - Paranoid schizophrenia Status: Acute Code(s): F20.9 - Schizophrenia, unspecified (3) Myelitis: Status: Acute Code(s): G04.91 - Myelitis, unspecified Plan 03/22: continue outpt meds for now.? t/c ranitidine for GERD, incr in gabapentin for pain, trazodone for sleep.? educate re evidence-based mood stabilizers and attempt to get pt to take one of the three. 03/23: agrees to trial of tegretol in place of trileptal.? trileptal DCed and tegretol started at 600 BID.? perphenazine increased to 16 BID and IM back-ups prescribed.? requesting neuro consult to see if any post-lesion syndrome may account for c/o cramps/pain and if there is anything that may be done to help.? thorazine and ativan PRNs prescribed. 03/24: per neuro consult, no need for further neuro w/u or intervention, pt recovering well from myelitis.? check HIV1&2.? steroid cream for rash, artificial saliva/lozenges Rxed.? encouraged to take tegretol, which he had said he would do yesterday but which he has not done (aside from 200 mg). 03/25: rash Dx as scabies, treated yesterday.? took tegretol 600 this morning and reports improved mood today.? encouraged compliance. 03/26: compliant with tegretol past 24H.? appears a bit sedated today; will decrease PRNs.? crural complaints, referred to hospitalist. 03/28: sedated.? decreasing medications which may cause delirium or sedation.? ativan, baclofen, trazodone, hydroxyzine DCed.? started keflex for UTI.? otherwise previous plan continued.? clearly unsteady on his feet, either sedated or getting delirious. 03/29: Patient less sedated alert not aggressive doing better with less sedating medication continue current treatment plan per Dr. Quiñones. 03/30: taper tegretol as likely offender for the rash.? neuro opines likely druge rash.? PT consult for gait.? sensitivities of urine species noted, antibx changed from keflex to nitrofurantoin x 7 days. 03/31: DC tegretol and start trileptal at a 1:1.5 ratio.? pt has tolerated trileptal in the past without adverse reaction.? less sedated today, rash looks a bit better.? keflex also DCed yesterday but rash appears to have begun prior to first dose of keflex. 04/02 dc trileltap low sodium and also risk of rash-increased gabapentin from 600mg tid to 800mg tid and plenty of prns if gets manic. 04/03: much improved mental status from last week.? due either to adequate treatment of UTI with change in antibiotic or DC of tegretol.? trileptal DCed over w/e due to hyponatremia; may need to restart trileptal if mood becomes labile/irritable.? hyponatremia noted within a day or two of DC of tegretol and start of trileptal, meaning it was due to tegretol rather than trileptal.? pt has tolerated trileptal in the past. 04/04: pt clearly more irritable and labile today.? restart trileptal at 450 BID. 04/05: several behavioral outbursts in the past 24H.? increase trileptal to 600 BID.? rash does not appear to be improving. 04/06: skin Bx taken.? rash stable.? appears less irritable today.? no change to mgmt. 04/07: awaiting Bx results.? new/worsened dermatologic condition of blanching deep erythema of head and hands.? ID and hospitalists consulted to evaluate.? initial rash started by 03/24, prior to any new medications.? pt has been on current meds in the past without side effects.? rash suggests drug reaction, however.? does not appear SJS or TEN-like.? initial rash appears as exanthematous rash while secondary rash of the past 24H looks more as if cutaneous small vessel vasculitis rash. 04/08 continue current medications. WBC trending up, w/ eosinophils high. New c/o of tooth ache. will start amoxicillin 500mg po TID x 4 days. 04/09 continue current medications. 04/10: no changes. 04/11: decrease klonopin.? debrox for ears.? otherwise continue current mgmt. 04/12: decrease klonopin. seen by medicine, see recs above. wound care consult placed. 04/13: looking better after prednisone start. wound care pending. [facility] current mgmt. I spent ___25___ minutes with the patient and/or on the patient floor today, greater than?50% of which was spent counseling/coordinating care. Reason for contiued inpatient stay Substantial Risk for: inability to function and rapid decompensation
[2022-04-13] MEDS: Nicotine Polacrilex Lozenge 2 MG LOZENGE BUCCAL (19:24)
[2022-04-13] MEDS: Tamsulosin HCL 0.4 MG CAPSULE PO (21:51)
[2022-04-13] MEDS: clonazePAM 0.5 MG TABLET 0.75 MG PO (21:51)
[2022-04-13] MEDS: chlorproMAZINE HCl 25 MG TABLET PO (23:30)
[2022-04-14 09:16] VITALS: BP 109/68; PULSE 96; RESP 16; TEMP 36.4; O2SAT 94
[2022-04-14] MEDS: Gabapentin 400 MG CAPSULE 800 MG PO ×3 (09:17→22:48)
[2022-04-14] MEDS: Docusate Sodium 100 MG CAPSULE PO ×2 (09:17→22:50)
[2022-04-14] MEDS: Ibuprofen 800 MG TABLET PO ×3 (09:18→22:49)
[2022-04-14] MEDS: Sennosides 8.6 MG TABLET 17.2 MG PO (09:18)
[2022-04-14] MEDS: Benztropine Mesylate 1 MG TABLET PO ×3 (09:19→22:50)
[2022-04-14] MEDS: Perphenazine 8 MG TABLET 16 MG PO ×2 (09:19→22:48)
[2022-04-14] MEDS: predniSONE 20 MG TABLET 40 MG PO (09:19)
[2022-04-14] MEDS: clonazePAM 0.5 MG TABLET PO (09:20)
[2022-04-14] MEDS: DULoxetine HCl 60 MG CAPSULE.DR 120 MG PO (09:20)
--- NOTE | 2022-04-14 09:43 | PM.EVENT ---
Event Note Date of Service: 04/14/22 Event Note: The patient was seen and evaluated this morning report feeling less itching with improvement on the rash Noticed decreased redness and sloughing of the skin Will continue with prednisone tapering dose Please contact hospitalist team with any further questions
--- NOTE | 2022-04-14 14:29 | P.PNPSI_ITS ---
Subjective Subjective Date of Service: 04/14/22 Reason For Visit: Psychosis Interim History: pt feeling reasonably well. rash appears to have lessened substantially. head/face now nearly back to natural color, hands less red and swollen. states he is walking better every day. mood is even, not having bouts of anger. sleeping well, eating well. amenable to continue current regimen and observe for improvement. per staff, mild anxiety and no depression. safe. having some pain and discomfort. rash improving slightly. Mental Status Exam Mental Status Exam Narrative: cooperative. less PMR. speech nml in rate, decr in amount, clear. flattened tone, nml latency, nml loudness. thoughts linear and logical. affect constricted, normo-intense, non-labile. mood euthymic. no SI/HI/AVH expressed. Diagnostics Vital Signs (24Hr): Vital Signs - 24 hr 04/14/22 09:16 Temperature 97.6 F Pulse Rate 96 Respiratory Rate 16 Blood Pressure 109/68 Pulse Oximetry 94 Oxygen Delivery Method Room Air BMI result Body Mass Index 32.1 Labs Results: 04/10/22 08:24 04/12/22 15:46 Labs: Laboratory Results - last 48 hr 04/12/22 04/12/22 04/12/22 01:00 15:46 15:46 Sodium 141 Potassium 4.2 Chloride 104 Carbon Dioxide 29 Anion Gap 12 BUN 18 H Creatinine 0.76 Estim Creat Clear Calc 110.7 Estimated GFR > 60 Random Glucose 151 H Calcium 8.9 Total Bilirubin 0.2 Direct Bilirubin < 0.2 AST 27 ALT 38 Alkaline Phosphatase 59 Lactate Dehydrogenase 221 C-Reactive Protein 4.72 H Total Protein 6.9 Albumin 3.9 Urine Color DK YELLOW Urine Appearance CLEAR Urine pH 6.5 Ur Specific [place] 1.020 Urine Protein NEG Urine Glucose (UA) NEG Urine Ketones NEG Urine Blood NEG Urine Nitrite NEG Ur Leukocyte Esterase NEG HSV I IgG Ab 42.40 H HSV II IgG 3.00 H Imaging Radiology Impressions: ITS Impressions Head CT 03/20/22 23:40 IMPRESSION: No acute intracranial pathology. 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 Otherwise unremarkable examination. No acute intracranial hemorrhage. Medications Medications Current Medications Acetaminophen (Acetaminophen 325 Mg Tablet) 650 mg PO Q6H PRN PRN Reason: Headache/Pain Mild Scale (1-3) Last Admin: 04/11/22 06:02 Dose: 650 mg Al Hydroxide/Mg Hydroxide (Magnesium Hydrox/Alum Hydrox 30 Ml Oral.Susp) 30 ml PO Q6H PRN PRN Reason: Heartburn/Nausea Last Admin: 04/04/22 00:42 Dose: 30 ml Benzocaine (Throat Lozenge, Medicated Lozenge) 1 lozenge MUCOUS MEM Q1H PRN PRN Reason: xerostomia Last Admin: 03/27/22 06:10 Dose: 1 lozenge Benzocaine (Benzocaine 20 % Oral Gel 9 Gm Tube) 1 appl MUCOUS MEM QID PRN; Protocol PRN Reason: tooth pain Last Admin: 04/10/22 20:38 Dose: 1 appl Benztropine Mesylate (Benztropine Mesylate 1 Mg Tablet) 1 mg PO TID [facility] Last Admin: 04/14/22 14:10 Dose: 1 mg Calcium Carbonate (Calcium Carbonate 750 Mg Tab.Chew) 750 mg PO Q4H PRN PRN Reason: Dyspepsia Last Admin: 04/12/22 22:10 Dose: 750 mg Carbamide Peroxide (Carbamide Peroxide 6.5% Otic 15 Ml Drpbtl) 5 drop EAR-BOTH BID ON LICENSE OF [facility] Stop: 04/15/22 15:05 Last Admin: 04/14/22 13:25 Dose: Not Given Chlorpromazine HCl (Chlorpromazine Hcl 25 Mg Tablet) 25 mg PO Q4H PRN PRN Reason: agitation. Last Admin: 04/13/22 23:30 Dose: 25 mg Clonazepam (Clonazepam 0.5 Mg Tablet) 0.75 mg PO BEDTIME ON LICENSE OF [facility] Last Admin: 04/13/22 21:51 Dose: 0.75 mg Clonazepam (Clonazepam 0.5 Mg Tablet) 0.5 mg PO DAILY ON LICENSE OF [facility] Last Admin: 04/14/22 09:20 Dose: 0.5 mg Diphenhydramine HCl (Diphenhydramine Hcl 25 Mg Tablet) 50 mg PO TID PRN PRN Reason: itching/agitation Last Admin: 04/11/22 20:46 Dose: 50 mg Docusate Sodium (Docusate Sodium 100 Mg Capsule) 100 mg PO BID ON LICENSE OF [facility] Last Admin: 04/14/22 09:17 Dose: 100 mg Duloxetine HCl (Duloxetine Hcl 60 Mg Capsule.) 120 mg PO DAILY ON LICENSE OF [facility] Last Admin: 04/14/22 09:20 Dose: 120 mg Gabapentin (Gabapentin 400 Mg Capsule) 800 mg PO TID ON LICENSE OF [facility] Last Admin: 04/14/22 14:10 Dose: 800 mg Hydrocortisone (Hydrocortisone 1 % Ointment 28.35 Gm Tube) 1 appl TOPICAL BID ON LICENSE OF [facility]; Protocol Last Admin: 04/14/22 13:25 Dose: Not Given Ibuprofen (Ibuprofen 800 Mg Tablet) 800 mg PO TID@0600,1400,2200 ON LICENSE OF [facility] Last Admin: 04/14/22 14:11 Dose: 800 mg Lactic Acid (Ammonium Lactate 12 % Lotion 226 Gm Bottle) 1 appl TOPICAL BID ON LICENSE OF [facility]; Protocol Last Admin: 04/14/22 13:25 Dose: Not Given Lidocaine (Lidocaine 4 % Patch Adh..Patch) 2 patch TRANSDERMA DAILY PRN; Protocol PRN Reason: low back pain Last Admin: 04/04/22 02:44 Dose: 2 patch Lidocaine (Lidocaine 4 % Patch Adh..Patch) 1 patch TRANSDERMA DAILY PRN; Protocol PRN Reason: shoulder pain Last Admin: 04/04/22 20:14 Dose: 1 patch Magnesium Hydroxide (Milk Of Magnesia 30 Ml Oral.Susp) 30 ml PO DAILY PRN PRN Reason: Constipation Last Admin: 04/03/22 15:29 Dose: 30 ml Multi-Ingred Medicated Throat [place] (Throat [place], Medicated 20 Ml Bottle) 1 spray MUCOUS MEM Q2H PRN PRN Reason: Sore Throat Last Admin: 04/12/22 06:35 Dose: 1 spray Nicotine Polacrilex (Nicotine Polacrilex 2 Mg Gum) 2 mg BUCCAL Q1H PRN PRN Reason: Nicotine Cravings Nicotine Polacrilex (Nicotine Polacrilex Lozenge 2 Mg Lozenge) 2 mg BUCCAL Q1H PRN PRN Reason: Nicotine Cravings Last Admin: 04/13/22 19:24 Dose: 2 mg Olanzapine (Olanzapine 10 Mg Vial) 10 mg IM BID PRN PRN Reason: refusal of trilafonstanislav Last Admin: 03/23/22 21:48 Dose: 10 mg Oxycodone HCl (Oxycodone Hcl Immed Release 5 Mg Tablet) 10 mg PO Q12H PRN PRN Reason: severe pain Last Admin: 04/13/22 04:42 Dose: 10 mg Perphenazine (Perphenazine 8 Mg Tablet) 16 mg PO BID ON LICENSE OF [facility] Last Admin: 04/14/22 09:19 Dose: 16 mg Prednisone (Prednisone 20 Mg Tablet) 40 mg PO BIDWM ON LICENSE OF [facility]; Taper Stop: 04/25/22 16:59 Saliva Substitute (Dry Mouth [place] 60 Ml [place]) 1 spray MUCOUS MEM Q2H PRN PRN Reason: xerostomia Last Admin: 04/12/22 08:57 Dose: 1 spray Senna (Sennosides 8.6 Mg Tablet) 17.2 mg PO DAILY [facility] Last Admin: 04/14/22 09:18 Dose: 17.2 mg Tamsulosin HCl (Tamsulosin Hcl 0.4 Mg Capsule) 0.4 mg PO BEDTIME [facility] Last Admin: 04/13/22 21:51 Dose: 0.4 mg Triamcinolone Acetonide (Triamcinolone Acet 0.1 % Cream 15 Gm Tube) 1 appl T OPICAL DAILY [facility]; Protocol Last Admin: 04/14/22 13:25 Dose: Not Given Allergies Allergies Allergy/AdvReac Type Severity Reaction Status Date / Time haloperidol [From HALDOL] Allergy Intermediate UNKNOWN Verified 03/16/22 14:25 Assessment & Plan Assessment & Plan (1) Rash: Status: Acute Code(s): R21 - Rash and other nonspecific skin eruption Assessment and Plan: 51 years old with PMH of schizophrenia, substance abuse, demyelinating disease who developed progressive rash that has been getting worse over the course of hospital stay. Generalized Skin rash Worsening since admission Thought to be secondary to medications, Trileptal, IVIG Skin biopsy showing spongiotic dermatitis, likely allergic reaction to medic ation or food Concern over DRESS syndrome Check blood work of CRP, LDH, ESR, NICCI, liver and kidney functions Check serology for herpes, CMV and EBV Start p.o. prednisone 1 milligram/kg Start on ammonia lactate lotion and local steroids Benadryl as needed for itching Will need dermatology evaluation upon discharge, we do not have dermatology service inpatient Will continue to monitor the patient with you. (2) Schizophrenia: Qualifiers: Schizophrenia type: paranoid schizophrenia Qualified Code(s): F20.0 - Paranoid schizophrenia Status: Acute Code(s): F20.9 - Schizophrenia, unspecified (3) Myelitis: Status: Acute Code(s): G04.91 - Myelitis, unspecified Plan 03/22: continue outpt meds for now.? t/c ranitidine for GERD, incr in gabapentin for pain, trazodone for sleep.? educate re evidence-based mood stabilizers and attempt to get pt to take one of the three. 03/23: agrees to trial of tegretol in place of trileptal.? trileptal DCed and tegretol started at 600 BID.? perphenazine increased to 16 BID and IM back-ups prescribed.? requesting neuro consult to see if any post-lesion syndrome may account for c/o cramps/pain and if there is anything that may be done to help.? thorazine and ativan PRNs prescribed. 03/24: per neuro consult, no need for further neuro w/u or intervention, pt recovering well from myelitis.? check HIV1&2.? steroid cream for rash, artificial saliva/lozenges Rxed.? encouraged to take tegretol, which he had said he would do yesterday but which he has not done (aside from 200 mg). 03/25: rash Dx as scabies, treated yesterday.? took tegretol 600 this morning and reports improved mood today.? encouraged compliance. 03/26: compliant with tegretol past 24H.? appears a bit sedated today; will decrease PRNs.? crural complaints, referred to hospitalist. 03/28: sedated.? decreasing medications which may cause delirium or sedation.? ativan, baclofen, trazodone, hydroxyzine DCed.? started keflex for UTI.? otherwise previous plan continued.? clearly unsteady on his feet, either sedated or getting delirious. 03/29: Patient less sedated alert not aggressive doing better with less sedating medication continue current treatment plan per Dr. Quiñones. 03/30: taper tegretol as likely offender for the rash.? neuro opines likely druge rash.? PT consult for gait.? sensitivities of urine species noted, antibx changed from keflex to nitrofurantoin x 7 days. 03/31: DC tegretol and start trileptal at a 1:1.5 ratio.? pt has tolerated trileptal in the past without adverse reaction.? less sedated today, rash looks a bit better.? keflex also DCed yesterday but rash appears to have begun prior to first dose of keflex. 04/02 dc trileltap low sodium and also risk of rash-increased gabapentin from 600mg tid to 800mg tid and plenty of prns if gets manic. 04/03: much improved mental status from last week.? due either to adequate treatment of UTI with change in antibiotic or DC of tegretol.? trileptal DCed over w/e due to hyponatremia; may need to restart trileptal if mood becomes labile/irritable.? hyponatremia noted within a day or two of DC of tegretol and start of trileptal, meaning it was due to tegretol rather than trileptal.? pt has tolerated trileptal in the past. 04/04: pt clearly more irritable and labile today.? restart trileptal at 450 BID. 04/05: several behavioral outbursts in the past 24H.? increase trileptal to 600 BID.? rash does not appear to be improving. 04/06: skin Bx taken.? rash stable.? appears less irritable today.? no change to mgmt. 04/07: awaiting Bx results.? new/worsened dermatologic condition of blanching deep erythema of head and hands.? ID and hospitalists consulted to evaluate.? initial rash started by 03/24, prior to any new medications.? pt has been on current meds in the past without side effects.? rash suggests drug reaction, however.? does not appear SJS or TEN-like.? initial rash appears as exanthe matous rash while secondary rash of the past 24H looks more as if cutaneous small vessel vasculitis rash. 04/08 continue current medications. WBC trending up, w/ eosinophils high. New c/o of tooth ache. will start amoxicillin 500mg po TID x 4 days. 04/09 continue current medications. 04/10: no changes. 04/11: decrease klonopin.? debrox for ears.? otherwise continue current mgmt. 04/12: decrease klonopin. seen by medicine, see recs above. wound care consult placed. 04/13: looking better after prednisone start. wound care pending. continue current mgmt. 04/14: very substantial improvement in rash. MS stable. continue current mgmt. I spent __25____ minutes with the patient and/or on the patient floor today, greater than?50% of which was spent counseling/coordinating care. Reason for contiued inpatient stay Substantial Risk for: inability to function and rapid decompensation
[2022-04-14] MEDS: predniSONE 20 MG TABLET 30 MG PO (16:26)
[2022-04-14] MEDS: chlorproMAZINE HCl 25 MG TABLET PO (17:19)
[2022-04-14] MEDS: Nicotine Polacrilex Lozenge 2 MG LOZENGE BUCCAL (17:19)
[2022-04-14] MEDS: oxyCODONE HCl Immed Release 5 MG TABLET 10 MG PO (19:20)
[2022-04-14 20:54] VITALS: BP 140/83; PULSE 99; RESP 94; TEMP 36.9; O2SAT 94
--- NOTE | 2022-04-14 20:58 | PC.NURSE ---
respiratory rate was not 94, error during input of vital signs.
[2022-04-14] MEDS: Calcium Carbonate 750 MG TAB.CHEW PO (21:31)
[2022-04-14] MEDS: clonazePAM 0.5 MG TABLET 0.75 MG PO (22:47)
[2022-04-14] MEDS: Tamsulosin HCL 0.4 MG CAPSULE PO (22:49)
[2022-04-14] MEDS: Dry Mouth Spray 60 ML SPRAY 1 SPRAY MUCOUS MEM (22:53)
[2022-04-14] MEDS: Carbamide Peroxide 6.5% Otic 15 ML DRPBTL 5 DROP EAR-BOTH (22:54)
[2022-04-14] MEDS: Ammonium Lactate 12 % Lotion 226 GM BOTTLE 1 APPL TOPICAL (22:57)
[2022-04-15] MEDS: Magnesium Hydrox/Alum Hydrox 30 ML ORAL.SUSP PO (00:30)
[2022-04-15] MEDS: Calcium Carbonate 750 MG TAB.CHEW PO ×2 (02:02→17:55)
[2022-04-15] MEDS: Calcium Carbonate 750 MG TAB.CHEW 1500 MG PO (05:48)
[2022-04-15 09:00] VITALS: BP 153/91; PULSE 88; RESP 18; TEMP 36.7; O2SAT 95
[2022-04-15] MEDS: predniSONE 20 MG TABLET 30 MG PO ×2 (09:48→17:10)
[2022-04-15] MEDS: Gabapentin 400 MG CAPSULE 800 MG PO ×3 (09:48→22:43)
[2022-04-15] MEDS: Sennosides 8.6 MG TABLET 17.2 MG PO (09:48)
[2022-04-15] MEDS: Ibuprofen 800 MG TABLET PO ×3 (09:49→22:42)
[2022-04-15] MEDS: Perphenazine 8 MG TABLET 16 MG PO ×2 (09:49→22:44)
[2022-04-15] MEDS: clonazePAM 0.5 MG TABLET PO (09:49)
[2022-04-15] MEDS: Docusate Sodium 100 MG CAPSULE PO ×2 (09:50→22:44)
[2022-04-15] MEDS: DULoxetine HCl 60 MG CAPSULE.DR 120 MG PO (09:50)
[2022-04-15] MEDS: Benztropine Mesylate 1 MG TABLET PO ×3 (09:50→22:43)
[2022-04-15] MEDS: oxyCODONE HCl Immed Release 5 MG TABLET 10 MG PO ×2 (09:52→22:49)
[2022-04-15] MEDS: Triamcinolone Acet 0.1 % Cream 15 GM TUBE 1 APPL TOPICAL (09:56)
[2022-04-15] MEDS: Dry Mouth Spray 60 ML SPRAY 1 SPRAY MUCOUS MEM ×2 (10:59→20:31)
--- NOTE | 2022-04-15 12:39 | HO.PSYCHPN ---
Subjective Subjective Date of Service: 04/15/22 Reason For Visit: Psychosis Subjective Notes: Conditional Voluntary Interim History: The nursing staff reported the patient slept well he has attended to groups. On interview the patient reports that he is feeling physically better, he is on cortical is a he slept poorly. I explained him that the corticoids can have some impact on his sleep and he agreed on that. No new symptoms Mental Status Exam Mental Status Exam Patient Appearance: Well Grooomed Patient Orientation: Person and Situation Level of Consciousness: Awake Patient Behavior: Appropriate Mood Description: Withdrawn Affect Description: Constricted Ability to Follow Directions: Good Speech Pattern: Clear Hallucinations: None Delusions: Not Present Thought Process: Linear Thought Content: positive for Circumstantial Judgement: Fair Diagnostics Vital Signs (24Hr): Vital Signs - 24 hr 04/14/22 20:54 04/15/22 09:00 Temperature 98.4 F 98.1 F Pulse Rate 99 88 Respiratory Rate 94 H 18 Blood Pressure 140/83 H 153/91 H Pulse Oximetry 94 95 Oxygen Delivery Method Room Air Room Air BMI result Body Mass Index 32.1 Labs Results: 04/10/22 08:24 04/12/22 15:46 Labs: Laboratory Results - last 48 hr 04/12/22 15:46 HSV I IgG Ab 42.40 H HSV II IgG 3.00 H Imaging Radiology Impressions: ITS Impressions Head CT 03/20/22 23:40 IMPRESSION: No acute intracranial pathology. 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 Otherwise unremarkable examination. No acute intracranial hemorrhage. Medications Medications Current Medications Acetaminophen (Acetaminophen 325 Mg Tablet) 650 mg PO Q6H PRN PRN Reason: Headache/Pain Mild Scale (1-3) Last Admin: 04/11/22 06:02 Dose: 650 mg Al Hydroxide/Mg Hydroxide (Magnesium Hydrox/Alum Hydrox 30 Ml Oral.Susp) 30 ml PO Q6H PRN PRN Reason: Heartburn/Nausea Last Admin: 04/15/22 00:30 Dose: 30 ml Benzocaine (Throat Lozenge, Medicated Lozenge) 1 lozenge MUCOUS MEM Q1H PRN PRN Reason: xerostomia Last Admin: 03/27/22 06:10 Dose: 1 lozenge Benzocaine (Benzocaine 20 % Oral Gel 9 Gm Tube) 1 appl MUCOUS MEM QID PRN; Protocol PRN Reason: tooth pain Last Admin: 04/10/22 20:38 Dose: 1 appl Benztropine Mesylate (Benztropine Mesylate 1 Mg Tablet) 1 mg PO TID [facility] Last Admin: 04/15/22 09:50 Dose: 1 mg Calcium Carbonate (Calcium Carbonate 750 Mg Tab.Chew) 750 mg PO Q4H PRN PRN Reason: Dyspepsia Last Admin: 04/15/22 02:02 Dose: 750 mg Carbamide Peroxide (Carbamide Peroxide 6.5% Otic 15 Ml Drpbtl) 5 drop EAR-BOTH BID [facility] Stop: 04/15/22 15:05 Last Admin: 04/15/22 10:07 Dose: Not Given Chlorpromazine HCl (Chlorpromazine Hcl 25 Mg Tablet) 25 mg PO Q4H PRN PRN Reason: agitation. Last Admin: 04/14/22 17:19 Dose: 25 mg Clonazepam (Clonazepam 0.5 Mg Tablet) 0.75 mg PO BEDTIME [facility] Last Admin: 04/14/22 22:47 Dose: 0.75 mg Clonazepam (Clonazepam 0.5 Mg Tablet) 0.5 mg PO DAILY [facility] Last Admin: 04/15/22 09:49 Dose: 0.5 mg Diphenhydramine HCl (Diphenhydramine Hcl 25 Mg Tablet) 50 mg PO TID PRN PRN Reason: itching/agitation Last Admin: 04/11/22 20:46 Dose: 50 mg Docusate Sodium (Docusate Sodium 100 Mg Capsule) 100 mg PO BID [facility] Last Admin: 04/15/22 09:50 Dose: 100 mg Duloxetine HCl (Duloxetine Hcl 60 Mg Capsule.Dr) 120 mg PO DAILY [facility] Last Admin: 04/15/22 09:50 Dose: 120 mg Gabapentin (Gabapentin 400 Mg Capsule) 800 mg PO TID [facility] Last Admin: 04/15/22 09:48 Dose: 800 mg Hydrocortisone (Hydrocortisone 1 % Ointment 28.35 Gm Tube) 1 appl TOPICAL BID [facility]; Protocol Last Admin: 04/15/22 10:07 Dose: Not Given Ibuprofen (Ibuprofen 800 Mg Tablet) 800 mg PO TID@0600,1400,2200 [facility] Last Admin: 04/15/22 09:49 Dose: 800 mg Lactic Acid (Ammonium Lactate 12 % Lotion 226 Gm Bottle) 1 appl TOPICAL BID [facility]; Protocol Last Admin: 04/15/22 10:07 Dose: Not Given Lidocaine (Lidocaine 4 % Patch Adh..Patch) 2 patch TRANSDERMA DAILY PRN; Protocol PRN Reason: low back pain Last Admin: 04/04/22 02:44 Dose: 2 patch Lidocaine (Lidocaine 4 % Patch Adh..Patch) 1 patch TRANSDERMA DAILY PRN; Protocol PRN Reason: shoulder pain Last Admin: 04/04/22 20:14 Dose: 1 patch Magnesium Hydroxide (Milk Of Magnesia 30 Ml Oral.Susp) 30 ml PO DAILY PRN PRN Reason: Constipation Last Admin: 04/03/22 15:29 Dose: 30 ml Multi-Ingred Medicated Throat [place] (Throat [place], Medicated 20 Ml Bottle) 1 spray MUCOUS MEM Q2H PRN PRN Reason: Sore Throat Last Admin: 04/12/22 06:35 Dose: 1 spray Nicotine Polacrilex (Nicotine Polacrilex 2 Mg Gum) 2 mg BUCCAL Q1H PRN PRN Reason: Nicotine Cravings Nicotine Polacrilex (Nicotine Polacrilex Lozenge 2 Mg Lozenge) 2 mg BUCCAL Q1H PRN PRN Reason: Nicotine Cravings Last Admin: 04/14/22 17:19 Dose: 2 mg Olanzapine (Olanzapine 10 Mg Vial) 10 mg IM BID PRN PRN Reason: refusal of trilafonstanislav Last Admin: 03/23/22 21:48 Dose: 10 mg Oxycodone HCl (Oxycodone Hcl Immed Release 5 Mg Tablet) 10 mg PO Q12H PRN PRN Reason: pain dt inflammatory process Last Admin: 04/15/22 09:52 Dose: 10 mg Perphenazine (Perphenazine 8 Mg Tablet) 16 mg PO BID [facility] Last Admin: 04/15/22 09:49 Dose: 16 mg Prednisone (Prednisone 20 Mg Tablet) 40 mg PO BIDWM [facility]; Taper Stop: 04/25/22 16:59 Last Admin: 04/15/22 09:48 Dose: 40 mg Saliva Substitute (Dry Mouth [place] 60 Ml [place]) 1 spray MUCOUS MEM Q2H PRN PRN Reason: xerostomia Last Admin: 04/15/22 10:59 Dose: 1 spray Senna (Sennosides 8.6 Mg Tablet) 17.2 mg PO DAILY [facility] Last Admin: 04/15/22 09:48 Dose: 17.2 mg Tamsulosin HCl (Tamsulosin Hcl 0.4 Mg Capsule) 0.4 mg PO BEDTIME [facility] Last Admin: 04/14/22 22:49 Dose: 0.4 mg Triamcinolone Acetonide (Triamcinolone Acet 0.1 % Cream 15 Gm Tube) 1 appl TOPICAL DAILY [facility]; Protocol Last Admin: 04/15/22 09:56 Dose: 1 appl Allergies Allergies Allergy/AdvReac Type Severity Reaction Status Date / Time haloperidol [From HALDOL] Allergy Intermediate UNKNOWN Verified 03/16/22 14:25 Assessment & Plan Assessment & Plan (1) Rash: Status: Acute Code(s): R21 - Rash and other nonspecific skin eruption Assessment and Plan: 51 years old with PMH of schizophrenia, substance abuse, demyelinating disease who developed progressive rash that has been getting worse over the course of hospital stay. Generalized Skin rash Worsening since admission Thought to be secondary to medications, Trileptal, IVIG Skin biopsy showing spongiotic dermatitis, likely allergic reaction to medication or food Concern over DRESS syndrome Check blood work of CRP, LDH, ESR, NICCI, liver and kidney functions Check serology for herpes, CMV and EBV Start p.o. prednisone 1 milligram/kg Start on ammonia lactate lotion and local steroids Benadryl as needed for itching Will need dermatology evaluation upon discharge, we do not have dermatology service inpatient Will continue to monitor the patient with you. (2) Schizophrenia: Qualifiers: Schizophrenia type: paranoid schizophrenia Qualified Code(s): F20.0 - Paranoid schizophrenia Status: Acute Code(s): F20.9 - Schizophrenia, unspecified (3) Myelitis: Status: Acute Code(s): G04.91 - Myelitis, unspecified Plan 03/22: continue outpt meds for now.? t/c ranitidine for GERD, incr in gabapentin for pain, trazodone for sleep.? educate re evidence-based mood stabilizers and attempt to get pt to take one of the three. 03/23: agrees to trial of tegretol in place of trileptal.? trileptal DCed and tegretol started at 600 BID.? perphenazine increased to 16 BID and IM back-ups prescribed.? requesting neuro consult to see if any post-lesion syndrome may account for c/o cramps/pain and if there is anything that may be done to help.? thorazine and ativan PRNs prescribed. 03/24: per neuro consult, no need for further neuro w/u or intervention, pt recovering well from myelitis.? check HIV1&2.? steroid cream for rash, artificial saliva/lozenges Rxed.? encouraged to take tegretol, which he had said he would do yesterday but which he has not done (aside from 200 mg). 03/25: rash Dx as scabies, treated yesterday.? took tegretol 600 this morning and reports improved mood today.? encouraged compliance. 03/26: compliant with tegretol past 24H.? appears a bit sedated today; will decrease PRNs.? crural complaints, referred to hospitalist. 03/28: sedated.? decreasing medications which may cause delirium or sedation.? ativan, baclofen, trazodone, hydroxyzine DCed.? started keflex for UTI.? otherwise previous plan continued.? clearly unsteady on his feet, either sedated or getting delirious. 03/29: Patient less sedated alert not aggressive doing better with less sedating medication continue current treatment plan per Dr. Quiñones. 03/30: taper tegretol as likely offender for the rash.? neuro opines likely druge rash.? PT consult for gait.? sensitivities of urine species noted, antibx changed from keflex to nitrofurantoin x 7 days. 03/31: DC tegretol and start trileptal at a 1:1.5 ratio.? pt has tolerated trileptal in the past without adverse reaction.? less sedated today, rash looks a bit better.? keflex also DCed yesterday but rash appears to have begun prior to first dose of keflex. 04/02 dc trileltap low sodium and also risk of rash-increased gabapentin from 600mg tid to 800mg tid and plenty of prns if gets manic. 04/03: much improved mental status from last week.? due either to adequate treatment of UTI with change in antibiotic or DC of tegretol.? trileptal DCed over w/e due to hyponatremia; may need to restart trileptal if mood becomes labile/irritable.? hyponatremia noted within a day or two of DC of tegretol and start of trileptal, meaning it was due to tegretol rather than trileptal.? pt has tolerated trileptal in the past. 04/04: pt clearly more irritable and labile today.? restart trileptal at 450 BID. 04/05: several behavioral outbursts in the past 24H.? increase trileptal to 600 BID.? rash does not appear to be improving. 04/06: skin Bx taken.? rash stable.? appears less irritable today.? no change to mgmt. 04/07: awaiting Bx results.? new/worsened dermatologic condition of blanching deep erythema of head and hands.? ID and hospitalists consulted to evaluate.? initial rash started by 03/24, prior to any new medications.? pt has been on current meds in the past without side effects.? rash suggests drug reaction, however.? does not appear SJS or TEN-like.? initial rash appears as exanthematous rash while secondary rash of the past 24H looks more as if cutaneous small vessel vasculitis rash. 04/08 continue current medications. WBC trending up, w/ eosinophils high. New c/o of tooth ache. will start amoxicillin 500mg po TID x 4 days. 04/09 continue current medications. 04/10: no changes. 04/11: decrease klonopin.? debrox for ears.? otherwise continue current mgmt. 04/12: decrease klonopin. seen by medicine, see recs above. wound care consult placed. 04/13: looking better after prednisone start. wound care pending. continue current mgmt. 04/14: very substantial improvement in rash. MS stable. continue current mgmt. 04/15: stable, still with rash. I spent minutes with the patient and/or on the patient floor today, greater than?50% of which was spent counseling/coordinating care. Reason for contiued inpatient stay Substantial Risk for: inability to function, rapid decompensation and med/psych decompensation
[2022-04-15] MEDS: Nicotine Polacrilex Lozenge 2 MG LOZENGE BUCCAL (14:47)
[2022-04-15] MEDS: diphenhydrAMINE HCL 25 MG TABLET 50 MG PO (15:46)
[2022-04-15 21:10] VITALS: BP 145/82; PULSE 78; RESP 16; TEMP 36.7; O2SAT 99
[2022-04-15] MEDS: clonazePAM 0.5 MG TABLET 0.75 MG PO (22:42)
[2022-04-15] MEDS: Tamsulosin HCL 0.4 MG CAPSULE PO (22:43)
[2022-04-15] MEDS: Lidocaine 4 % Patch ADH..PATCH 2 PATCH TRANSDERMA (22:50)
[2022-04-15] MEDS: Lidocaine 4 % Patch ADH..PATCH 1 PATCH TRANSDERMA (22:51)
[2022-04-15] MEDS: Ammonium Lactate 12 % Lotion 226 GM BOTTLE 1 APPL TOPICAL (23:10)
[2022-04-16] MEDS: chlorproMAZINE HCl 25 MG TABLET PO ×2 (00:58→22:40)
[2022-04-16] MEDS: Calcium Carbonate 750 MG TAB.CHEW PO ×2 (02:16→21:01)
[2022-04-16] MEDS: Perphenazine 8 MG TABLET 16 MG PO ×2 (10:53→20:55)
[2022-04-16] MEDS: Sennosides 8.6 MG TABLET 17.2 MG PO (10:53)
[2022-04-16] MEDS: Gabapentin 400 MG CAPSULE 800 MG PO ×3 (10:53→20:55)
[2022-04-16] MEDS: predniSONE 20 MG TABLET 30 MG PO ×2 (10:54→15:32)
[2022-04-16] MEDS: Docusate Sodium 100 MG CAPSULE PO ×2 (10:54→20:56)
[2022-04-16] MEDS: DULoxetine HCl 60 MG CAPSULE.DR 120 MG PO (10:54)
[2022-04-16] MEDS: clonazePAM 0.5 MG TABLET PO (10:55)
[2022-04-16] MEDS: Ibuprofen 800 MG TABLET PO ×3 (10:55→20:55)
[2022-04-16] MEDS: Benztropine Mesylate 1 MG TABLET PO ×3 (10:55→20:56)
--- NOTE | 2022-04-16 13:35 | HO.PSYCHPN ---
Subjective Subjective Date of Service: 04/16/22 Reason For Visit: Psychosis Interim History: The nursing staff reported the patient has been on his bed most of the time very sleepy. The patient was interview at bedside and he stated that he feels very tired no new symptoms. Mental Status Exam Mental Status Exam Patient Appearance: Well Grooomed Patient Orientation: Person and Situation Level of Consciousness: Awake Patient Behavior: Cooperative Mood Description: Constricted Affect Description: Constricted Patient Cognition Impaired: No Ability to Follow Directions: Good Speech Pattern: Clear Hallucinations: None Delusions: Not Present Thought Process: Linear Judgement: Fair Diagnostics Vital Signs (24Hr): Vital Signs - 24 hr 04/15/22 21:10 Temperature 98.1 F Pulse Rate 78 Respiratory Rate 16 Blood Pressure 145/82 H Pulse Oximetry 99 Oxygen Delivery Method Room Air BMI result Body Mass Index 32.1 Labs Results: 04/10/22 08:24 04/12/22 15:46 Imaging Radiology Impressions: ITS Impressions Head CT 03/20/22 23:40 IMPRESSION: No acute intracranial pathology. 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 Otherwise unremarkable examination. No acute intracranial hemorrhage. Medications Medications Current Medications Acetaminophen (Acetaminophen 325 Mg Tablet) 650 mg PO Q6H PRN PRN Reason: Headache/Pain Mild Scale (1-3) Last Admin: 04/11/22 06:02 Dose: 650 mg Al Hydroxide/Mg Hydroxide (Magnesium Hydrox/Alum Hydrox 30 Ml Oral.Susp) 30 ml PO Q6H PRN PRN Reason: Heartburn/Nausea Last Admin: 04/15/22 00:30 Dose: 30 ml Benzocaine (Throat Lozenge, Medicated Lozenge) 1 lozenge MUCOUS MEM Q1H PRN PRN Reason: xerostomia Last Admin: 03/27/22 06:10 Dose: 1 lozenge Benzocaine (Benzocaine 20 % Oral Gel 9 Gm Tube) 1 appl MUCOUS MEM QID PRN; Protocol PRN Reason: tooth pain Last Admin: 04/10/22 20:38 Dose: 1 appl Benztropine Mesylate (Benztropine Mesylate 1 Mg Tablet) 1 mg PO TID [facility]DA Last Admin: 04/16/22 10:55 Dose: 1 mg Calcium Carbonate (Calcium Carbonate 750 Mg Tab.Chew) 750 mg PO Q4H PRN PRN Reason: Dyspepsia Last Admin: 04/16/22 02:16 Dose: 750 mg Chlorpromazine HCl (Chlorpromazine Hcl 25 Mg Tablet) 25 mg PO Q4H PRN PRN Reason: agitation. Last Admin: 04/16/22 00:58 Dose: 25 mg Clonazepam (Clonazepam 0.5 Mg Tablet) 0.75 mg PO BEDTIME [facility]ANDA Last Admin: 04/15/22 22:42 Dose: 0.75 mg Clonazepam (Clonazepam 0.5 Mg Tablet) 0.5 mg PO DAILY [facility]ANDA Last Admin: 04/16/22 10:55 Dose: 0.5 mg Diphenhydramine HCl (Diphenhydramine Hcl 25 Mg Tablet) 50 mg PO TID PRN PRN Reason: itching/agitation Last Admin: 04/15/22 15:46 Dose: 50 mg Docusate Sodium (Docusate Sodium 100 Mg Capsule) 100 mg PO BID [facility] Last Admin: 04/16/22 10:54 Dose: 100 mg Duloxetine HCl (Duloxetine Hcl 60 Mg Capsule.Dr) 120 mg PO DAILY [facility] Last Admin: 04/16/22 10:54 Dose: 120 mg Gabapentin (Gabapentin 400 Mg Capsule) 800 mg PO TID [facility] Last Admin: 04/16/22 10:53 Dose: 800 mg Hydrocortisone (Hydrocortisone 1 % Ointment 28.35 Gm Tube) 1 appl TOPICAL BID [facility]; Protocol Last Admin: 04/16/22 10:57 Dose: Not Given Ibuprofen (Ibuprofen 800 Mg Tablet) 800 mg PO TID@0600,1400,2200 [facility] Last Admin: 04/16/22 10:55 Dose: 800 mg Lactic Acid (Ammonium Lactate 12 % Lotion 226 Gm Bottle) 1 appl TOPICAL BID [facility]; Protocol Last Admin: 04/16/22 10:57 Dose: Not Given Lidocaine (Lidocaine 4 % Patch Adh..Patch) 2 patch TRANSDERMA DAILY PRN; Protocol PRN Reason: low back pain Last Admin: 04/15/22 22:50 Dose: 1 patch Lidocaine (Lidocaine 4 % Patch Adh..Patch) 1 patch TRANSDERMA DAILY PRN; Protocol PRN Reason: shoulder pain Last Admin: 04/15/22 22:51 Dose: 1 patch Magnesium Hydroxide (Milk Of Magnesia 30 Ml Oral.Susp) 30 ml PO DAILY PRN PRN Reason: Constipation Last Admin: 04/03/22 15:29 Dose: 30 ml Multi-Ingred Medicated Throat [place] (Throat [place], Medicated 20 Ml Bottle) 1 spray MUCOUS MEM Q2H PRN PRN Reason: Sore Throat Last Admin: 04/12/22 06:35 Dose: 1 spray Nicotine Polacrilex (Nicotine Polacrilex 2 Mg Gum) 2 mg BUCCAL Q1H PRN PRN Reason: Nicotine Cravings Nicotine Polacrilex (Nicotine Polacrilex Lozenge 2 Mg Lozenge) 2 mg BUCCAL Q1H PRN PRN Reason: Nicotine Cravings Last Admin: 04/15/22 14:47 Dose: 2 mg Olanzapine (Olanzapine 10 Mg Vial) 10 mg IM BID PRN PRN Reason: refusal of trilafonstanislav Last Admin: 03/23/22 21:48 Dose: 10 mg Oxycodone HCl (Oxycodone Hcl Immed Release 5 Mg Tablet) 10 mg PO Q12H PRN PRN Reason: pain dt inflammatory process Last Admin: 04/15/22 22:49 Dose: 10 mg Perphenazine (Perphenazine 8 Mg Tablet) 16 mg PO BID [facility] Last Admin: 04/16/22 10:53 Dose: 16 mg Prednisone (Prednisone 20 Mg Tablet) 40 mg PO BIDWM [facility]ANDA; Taper Stop: 04/25/22 16:59 Last Admin: 04/16/22 10:54 Dose: 40 mg Saliva Substitute (Dry Mouth [place] 60 Ml [place]) 1 spray MUCOUS MEM Q2H PRN PRN Reason: xerostomia Last Admin: 04/15/22 20:31 Dose: 1 spray Senna (Sennosides 8.6 Mg Tablet) 17.2 mg PO DAILY [facility] Last Admin: 04/16/22 10:53 Dose: 17.2 mg Tamsulosin HCl (Tamsulosin Hcl 0.4 Mg Capsule) 0.4 mg PO BEDTIME [facility]ANDA Last Admin: 04/15/22 22:43 Dose: 0.4 mg Triamcinolone Acetonide (Triamcinolone Acet 0.1 % Cream 15 Gm Tube) 1 appl TOPICAL DAILY [facility]; Protocol Last Admin: 04/16/22 10:57 Dose: Not Given Allergies Allergies Allergy/AdvReac Type Severity Reaction Status Date / Time haloperidol [From HALDOL] Allergy Intermediate UNKNOWN Verified 03/16/22 14:25 Assessment & Plan Assessment & Plan (1) Rash: Status: Acute Code(s): R21 - Rash and other nonspecific skin eruption Assessment and Plan: 51 years old with PMH of schizophrenia, substance abuse, demyelinating disease who developed progressive rash that has been getting worse over the course of hospital stay. Generalized Skin rash Worsening since admission Thought to be secondary to medications, Trileptal, IVIG Skin biopsy showing spongiotic dermatitis, likely allergic reaction to medication or food Concern over DRESS syndrome Check blood work of CRP, LDH, ESR, NICCI, liver and kidney functions Check serology for herpes, CMV and EBV Start p.o. prednisone 1 milligram/kg Start on ammonia lactate lotion and local steroids Benadryl as needed for itching Will need dermatology evaluation upon discharge, we do not have dermatology service inpatient Will continue to monitor the patient with you. (2) Schizophrenia: Qualifiers: Schizophrenia type: paranoid schizophrenia Qualified Code(s): F20.0 - Paranoid schizophrenia Status: Acute Code(s): F20.9 - Schizophrenia, unspecified (3) Myelitis: Status: Acute Code(s): G04.91 - Myelitis, unspecified Plan 03/22: continue outpt meds for now.? t/c ranitidine for GERD, incr in gabapentin for pain, trazodone for sleep.? educate re evidence-based mood stabilizers and attempt to get pt to take one of the three. 03/23: agrees to trial of tegretol in place of trileptal.? trileptal DCed and tegretol started at 600 BID.? perphenazine increased to 16 BID and IM back-ups prescribed.? requesting neuro consult to see if any post-lesion syndrome may account for c/o cramps/pain and if there is anything that may be done to help.? thorazine and ativan PRNs prescribed. 03/24: per neuro consult, no need for further neuro w/u or intervention, pt recovering well from myelitis.? check HIV1&2.? steroid cream for rash, artificial saliva/lozenges Rxed.? encouraged to take tegretol, which he had said he would do yesterday but which he has not done (aside from 200 mg). 03/25: rash Dx as scabies, treated yesterday.? took tegretol 600 this morning and reports improved mood today.? encouraged compliance. 03/26: compliant with tegretol past 24H.? appears a bit sedated today; will decrease PRNs.? crural complaints, referred to hospitalist. 03/28: sedated.? decreasing medications which may cause delirium or sedation.? ativan, baclofen, trazodone, hydroxyzine DCed.? started keflex for UTI.? otherwise previous plan continued.? clearly unsteady on his feet, either sedated or getting delirious. 03/29: Patient less sedated alert not aggressive doing better with less sedating medication continue current treatment plan per Dr. Quiñones. 03/30: taper tegretol as likely offender for the rash.? neuro opines likely druge rash.? PT consult for gait.? sensitivities of urine species noted, antibx changed from keflex to nitrofurantoin x 7 days. 03/31: DC tegretol and start trileptal at a 1:1.5 ratio.? pt has tolerated trileptal in the past without adverse reaction.? less sedated today, rash looks a bit better.? keflex also DCed yesterday but rash appears to have begun prior to first dose of keflex. 04/02 dc trileltap low sodium and also risk of rash-increased gabapentin from 600mg tid to 800mg tid and plenty of prns if gets manic. 04/03: much improved mental status from last week.? due either to adequate treatment of UTI with change in antibiotic or DC of tegretol.? trileptal DCed over w/e due to hyponatremia; may need to restart trileptal if mood becomes labile/irritable.? hyponatremia noted within a day or two of DC of tegretol and start of trileptal, meaning it was due to tegretol rather than trileptal.? pt has tolerated trileptal in the past. 04/04: pt clearly more irritable and labile today.? restart trileptal at 450 BID. 04/05: several behavioral outbursts in the past 24H.? increase trileptal to 600 BID.? rash does not appear to be improving. 04/06: skin Bx taken.? rash stable.? appears less irritable today.? no change to mgmt. 04/07: awaiting Bx results.? new/worsened dermatologic condition of blanching deep erythema of head and hands.? ID and hospitalists consulted to evaluate.? initial rash started by 03/24, prior to any new medications.? pt has been on current meds in the past without side effects.? rash suggests drug reaction, however.? does not appear SJS or TEN-like.? initial rash appears as exanthematous rash while secondary rash of the past 24H looks more as if cutaneous small vessel vasculitis rash. 04/08 continue current medications. WBC trending up, w/ eosinophils high. New c/o of tooth ache. will start amoxicillin 500mg po TID x 4 days. 04/09 continue current medications. 04/10: no changes. 04/11: decrease klonopin.? debrox for ears.? otherwise continue current mgmt. 04/12: decrease klonopin. seen by medicine, see recs above. wound care consult placed. 04/13: looking better after prednisone start. wound care pending. continue current mgmt. 04/14: very substantial improvement in rash. MS stable. continue current mgmt. 04/15: stable, still with rash. 04/16: stable, still with rash. I spent ___20___ minutes with the patient and/or on the patient floor today, greater than?50% of which was spent counseling/coordinating care. Reason for contiued inpatient stay Substantial Risk for: inability to function, rapid decompensation and med/psych decompensation
[2022-04-16] MEDS: oxyCODONE HCl Immed Release 5 MG TABLET 10 MG PO (15:32)
[2022-04-16] MEDS: clonazePAM 0.5 MG TABLET 0.75 MG PO (20:55)
[2022-04-16] MEDS: Tamsulosin HCL 0.4 MG CAPSULE PO (20:56)
[2022-04-16 21:00] VITALS: BP 133/86; PULSE 109; RESP 18; TEMP 36.8; O2SAT 95
[2022-04-16] MEDS: Ammonium Lactate 12 % Lotion 226 GM BOTTLE 1 APPL TOPICAL (21:00)
[2022-04-17 08:23] LABS: CMV DNA PCR Qn Source Whole Blood; CMV DNA Qn PCR Not Detected log IU/mL; CMV DNA Qn Real Time PCR Not Detected
[2022-04-17 09:02] VITALS: BP 125/81; PULSE 76; RESP 17; TEMP 36.6; O2SAT 95
[2022-04-17] MEDS: Sennosides 8.6 MG TABLET 17.2 MG PO (09:02)
[2022-04-17] MEDS: Gabapentin 400 MG CAPSULE 800 MG PO ×3 (09:02→21:28)
[2022-04-17] MEDS: predniSONE 20 MG TABLET 30 MG PO ×2 (09:03→16:02)
[2022-04-17] MEDS: Perphenazine 8 MG TABLET 16 MG PO ×2 (09:04→21:27)
[2022-04-17] MEDS: DULoxetine HCl 60 MG CAPSULE.DR 120 MG PO (09:05)
[2022-04-17] MEDS: clonazePAM 0.5 MG TABLET PO (09:05)
[2022-04-17] MEDS: Benztropine Mesylate 1 MG TABLET PO ×3 (09:05→21:28)
[2022-04-17] MEDS: Ibuprofen 800 MG TABLET PO ×3 (09:05→21:28)
[2022-04-17] MEDS: Docusate Sodium 100 MG CAPSULE PO ×2 (09:06→21:28)
[2022-04-17] MEDS: oxyCODONE HCl Immed Release 5 MG TABLET 10 MG PO ×2 (09:55→19:49)
--- NOTE | 2022-04-17 13:27 | HO.PSYCHPN ---
Subjective Subjective Date of Service: 04/17/22 Reason For Visit: Psychosis Interim History: pt reports he is doing well. talking, socializing, not having any problems with anybody around here. states his mood is pretty good. denies any anger bouts. rash continues to improve. noted swelling in left foot. asking about discharge. agree for later this week, tentatively. per staff, slept until 3 pm yesterday. attending groups, attending to ADLs. rash improving. 2-3+ pitting edema in right foot. Mental Status Exam Mental Status Exam Narrative: cooperative. less PMR. speech nml in rate, decr in amount, clear. flattened tone, nml latency, nml loudness. thoughts linear and logical. affect constricted, normo-intense, non-labile. mood euthymic. no SI/HI/AVH expressed. Diagnostics Vital Signs (24Hr): Vital Signs - 24 hr 04/16/22 21:00 04/17/22 09:02 Temperature 98.3 F 97.9 F Pulse Rate 109 H 76 Respiratory Rate 18 17 Blood Pressure 133/86 125/81 Pulse Oximetry 95 95 Oxygen Delivery Method Room Air Room Air BMI result Body Mass Index 32.1 Labs Results: 04/10/22 08:24 04/12/22 15:46 Labs: Laboratory Results - last 48 hr 04/12/22 15:46 CMV Specimen Source Whole Blood CMV Qnt PCR IU/mL Not Detected CMV Qnt PCR log IU/mL Not Detected Imaging Radiology Impressions: ITS Impressions Head CT 03/20/22 23:40 IMPRESSION: No acute intracranial pathology. 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 Otherwise unremarkable examination. No acute intracranial hemorrhage. Medications Medications Current Medications Acetaminophen (Acetaminophen 325 Mg Tablet) 650 mg PO Q6H PRN PRN Reason: Headache/Pain Mild Scale (1-3) Last Admin: 04/11/22 06:02 Dose: 650 mg Al Hydroxide/Mg Hydroxide (Magnesium Hydrox/Alum Hydrox 30 Ml Oral.Susp) 30 ml PO Q6H PRN PRN Reason: Heartburn/Nausea Last Admin: 04/15/22 00:30 Dose: 30 ml Benzocaine (Throat Lozenge, Medicated Lozenge) 1 lozenge MUCOUS MEM Q1H PRN PRN Reason: xerostomia Last Admin: 03/27/22 06:10 Dose: 1 lozenge Benzocaine (Benzocaine 20 % Oral Gel 9 Gm Tube) 1 appl MUCOUS MEM QID PRN; Protocol PRN Reason: tooth pain Last Admin: 04/10/22 20:38 Dose: 1 appl Benztropine Mesylate (Benztropine Mesylate 1 Mg Tablet) 1 mg PO TID [facility] Last Admin: 04/17/22 09:05 Dose: 1 mg Calcium Carbonate (Calcium Carbonate 750 Mg Tab.Chew) 750 mg PO Q4H PRN PRN Reason: Dyspepsia Last Admin: 04/16/22 21:01 Dose: 750 mg Chlorpromazine HCl (Chlorpromazine Hcl 25 Mg Tablet) 25 mg PO Q4H PRN PRN Reason: agitation. Last Admin: 04/16/22 22:40 Dose: 25 mg Clonazepam (Clonazepam 0.5 Mg Tablet) 0.75 mg PO BEDTIME [facility] Last Admin: 04/16/22 20:55 Dose: 0.75 mg Clonazepam (Clonazepam 0.5 Mg Tablet) 0.5 mg PO DAILY [facility] Last Admin: 04/17/22 09:05 Dose: 0.5 mg Diphenhydramine HCl (Diphenhydramine Hcl 25 Mg Tablet) 50 mg PO TID PRN PRN Reason: itching/agitation Last Admin: 04/15/22 15:46 Dose: 50 mg Docusate Sodium (Docusate Sodium 100 Mg Capsule) 100 mg PO BID [facility] Last Admin: 04/17/22 09:06 Dose: 100 mg Duloxetine HCl (Duloxetine Hcl 60 Mg Capsule.Dr) 120 mg PO DAILY [facility] Last Admin: 04/17/22 09:05 Dose: 120 mg Gabapentin (Gabapentin 400 Mg Capsule) 800 mg PO TID [facility] Last Admin: 04/17/22 09:02 Dose: 800 mg Hydrocortisone (Hydrocortisone 1 % Ointment 28.35 Gm Tube) 1 appl TOPICAL BID [facility]; Protocol Last Admin: 04/17/22 11:51 Dose: Not Given Ibuprofen (Ibuprofen 800 Mg Tablet) 800 mg PO TID@0600,1400,2200 [facility] Last Admin: 04/17/22 09:05 Dose: 800 mg Lactic Acid (Ammonium Lactate 12 % Lotion 226 Gm Bottle) 1 appl TOPICAL BID [facility]; Protocol Last Admin: 04/17/22 11:50 Dose: Not Given Lidocaine (Lidocaine 4 % Patch Adh..Patch) 2 patch TRANSDERMA DAILY PRN; Protocol PRN Reason: low back pain Last Admin: 04/15/22 22:50 Dose: 1 patch Lidocaine (Lidocaine 4 % Patch Adh..Patch) 1 patch TRANSDERMA DAILY PRN; Protocol PRN Reason: shoulder pain Last Admin: 04/15/22 22:51 Dose: 1 patch Magnesium Hydroxide (Milk Of Magnesia 30 Ml Oral.Susp) 30 ml PO DAILY PRN PRN Reason: Constipation Last Admin: 04/03/22 15:29 Dose: 30 ml Multi-Ingred Medicated Throat [place] (Throat [place], Medicated 20 Ml Bottle) 1 spray MUCOUS MEM Q2H PRN PRN Reason: Sore Throat Last Admin: 04/12/22 06:35 Dose: 1 spray Nicotine Polacrilex (Nicotine Polacrilex 2 Mg Gum) 2 mg BUCCAL Q1H PRN PRN Reason: Nicotine Cravings Nicotine Polacrilex (Nicotine Polacrilex Lozenge 2 Mg Lozenge) 2 mg BUCCAL Q1H PRN PRN Reason: Nicotine Cravings Last Admin: 04/15/22 14:47 Dose: 2 mg Olanzapine (Olanzapine 10 Mg Vial) 10 mg IM BID PRN PRN Reason: refusal of trilafonstanislav Last Admin: 03/23/22 21:48 Dose: 10 mg Oxycodone HCl (Oxycodone Hcl Immed Release 5 Mg Tablet) 10 mg PO Q12H PRN PRN Reason: pain dt inflammatory process Last Admin: 04/17/22 09:55 Dose: 10 mg Perphenazine (Perphenazine 8 Mg Tablet) 16 mg PO BID [facility] Last Admin: 04/17/22 09:04 Dose: 16 mg Prednisone (Prednisone 20 Mg Tablet) 30 mg PO BIDWM [facility]AN[facility]; Taper Stop: 04/25/22 16:59 Last Admin: 04/17/22 09:03 Dose: 30 mg Saliva Substitute (Dry Mouth [place] [address]) 1 spray MUCOUS MEM Q2H PRN PRN Reason: xerostomia Last Admin: 04/15/22 20:31 Dose: 1 spray Senna (Sennosides 8.6 Mg Tablet) 17.2 mg PO DAILY [facility] Last Admin: 04/17/22 09:02 Dose: 17.2 mg Tamsulosin HCl (Tamsulosin Hcl 0.4 Mg Capsule) 0.4 mg PO BEDTIME [facility] Last Admin: 04/16/22 20:56 Dose: 0.4 mg Triamcinolone Acetonide (Triamcinolone Acet 0.1 % Cream 15 Gm Tube) 1 appl TOPICAL DAILY [facility]; Protocol Last Admin: 04/17/22 11:51 Dose: Not Given Allergies Allergies Allergy/AdvReac Type Severity Reaction Status Date / Time haloperidol [From HALDOL] Allergy Intermediate UNKNOWN Verified 03/16/22 14:25 Assessment & Plan Assessment & Plan (1) Rash: Status: Acute Code(s): R21 - Rash and other nonspecific skin eruption (2) Schizophrenia: Qualifiers: Schizophrenia type: paranoid schizophrenia Qualified Code(s): F20.0 - Paranoid schizophrenia Status: Acute Code(s): F20.9 - Schizophrenia, unspecified (3) Myelitis: Status: Acute Code(s): G04.91 - Myelitis, unspecified Plan 03/22: continue outpt meds for now.? t/c ranitidine for GERD, incr in gabapentin for pain, trazodone for sleep.? educate re evidence-based mood stabilizers and attempt to get pt to take one of the three. 03/23: agrees to trial of tegretol in place of trileptal.? trileptal DCed and tegretol started at 600 BID.? perphenazine increased to 16 BID and IM back-ups prescribed.? requesting neuro consult to see if any post-lesion syndrome may account for c/o cramps/pain and if there is anything that may be done to help.? thorazine and ativan PRNs prescribed. 03/24: per neuro consult, no need for further neuro w/u or intervention, pt recovering well from myelitis.? check HIV1&2.? steroid cream for rash, artificial saliva/lozenges Rxed.? encouraged to take tegretol, which he had said he would do yesterday but which he has not done (aside from 200 mg). 03/25: rash Dx as scabies, treated yesterday.? took tegretol 600 this morning and reports improved mood today.? encouraged compliance. 03/26: compliant with tegretol past 24H.? appears a bit sedated today; will decrease PRNs.? crural complaints, referred to hospitalist. 03/28: sedated.? decreasing medications which may cause delirium or sedation.? ativan, baclofen, trazodone, hydroxyzine DCed.? started keflex for UTI.? otherwise previous plan continued.? clearly unsteady on his feet, either sedated or getting delirious. 03/29: Patient less sedated alert not aggressive doing better with less sedating medication continue current treatment plan per Dr. Quiñones. 03/30: taper tegretol as likely offender for the rash.? neuro opines likely druge rash.? PT consult for gait.? sensitivities of urine species noted, antibx changed from keflex to nitrofurantoin x 7 days. 03/31: DC tegretol and start trileptal at a 1:1.5 ratio.? pt has tolerated trileptal in the past without adverse reaction.? less sedated today, rash looks a bit better.? keflex also DCed yesterday but rash appears to have begun prior to first dose of keflex. 04/02 dc trileltap low sodium and also risk of rash-increased gabapentin from 600mg tid to 800mg tid and plenty of prns if gets manic. 04/03: much improved mental status from last week.? due either to adequate treatment of UTI with change in antibiotic or DC of tegretol.? trileptal DCed over w/e due to hyponatremia; may need to restart trileptal if mood becomes labile/irritable.? hyponatremia noted within a day or two of DC of tegretol and start of trileptal, meaning it was due to tegretol rather than trileptal.? pt has tolerated trileptal in the past. 04/04: pt clearly more irritable and labile today.? restart trileptal at 450 BID. 04/05: several behavioral outbursts in the past 24H.? increase trileptal to 600 BID.? rash does not appear to be improving. 04/06: skin Bx taken.? rash stable.? appears less irritable today.? no change to mgmt. 04/07: awaiting Bx results.? new/worsened dermatologic condition of blanching deep erythema of head and hands.? ID and hospitalists consulted to evaluate.? initial rash started by 03/24, prior to any new medications.? pt has been on current meds in the past without side effects.? rash suggests drug reaction, however.? does not appear SJS or TEN-like.? initial rash appears as exanthematous rash while secondary rash of the past 24H looks more as if cutaneous small vessel vasculitis rash. 04/08 continue current medications. WBC trending up, w/ eosinophils high. New c/o of tooth ache. will start amoxicillin 500mg po TID x 4 days. 04/09 continue current medications. 04/10: no changes. 04/11: decrease klonopin.? debrox for ears.? otherwise continue current mgmt. 04/12: decrease klonopin.? seen by medicine, see recs above.? wound care consult placed. 04/13: looking better after prednisone start.? wound care pending.? continue current mgmt. 04/14: very substantial improvement in rash.? MS stable.? continue current mgmt. 04/17: trending well psychiatrically. stable without psychosis. rash improving. new 2-3+ pitting edema in LLE. doppler ordered. planning for discharge later this week. I spent ___25___ minutes with the patient and/or on the patient floor today, greater than?50% of which was spent counseling/coordinating care. Reason for contiued inpatient stay Substantial Risk for: inability to function and rapid decompensation
[2022-04-17 13:31] LABS: Anti Nuclear Antibody Screen NEGATIVE (NEGATIVE)
[2022-04-17] MEDS: Dry Mouth Spray 60 ML SPRAY 1 SPRAY MUCOUS MEM (14:02)
[2022-04-17] MEDS: Calcium Carbonate 750 MG TAB.CHEW PO ×2 (16:02→22:42)
[2022-04-17 20:35] VITALS: BP 129/75; PULSE 102; RESP 18; TEMP 37.3; O2SAT 94
[2022-04-17] MEDS: Tamsulosin HCL 0.4 MG CAPSULE PO (21:28)
[2022-04-17] MEDS: Lidocaine 4 % Patch ADH..PATCH 2 PATCH TRANSDERMA (22:49)
[2022-04-18] MEDS: Calcium Carbonate 750 MG TAB.CHEW PO (02:09)
[2022-04-18 05:43] LABS: EBV DNA PCR Not Detected (Not Detected); EBV Source Whole Blood
[2022-04-18 08:30] VITALS: BP 129/75; PULSE 78; RESP 16; TEMP 36.3; O2SAT 94
[2022-04-18 09:21] LABS: Basophils Percent Auto 0.2 % (0-2); Eosinophils Absolute Auto 0.5 X10*3/uL (0.0-0.4); Eosinophils Percent Auto 2.5 % (0-4); Hematocrit 38.9 % (42.0-52.0); Hemoglobin 12.9 g/dl (14.0-18.0); Imm Gran Abs Auto 0.89 X10*3/uL (0.00-0.03); Imm Gran Pct Auto 4.9 % (0.0-0.4); Lymphocytes Absolute Auto 4.3 X10*3/uL (1.2-4.9); Lymphocytes Percent Auto 23.6 % (20-40); MANUAL DIFF FLAG SCAN; Mean Corpuscular HGB Conc 33.2 g/dl (31.0-36.0); Mean Corpuscular Hemoglobin 32.7 pg (27.0-33.0); Mean Corpuscular Volume 98.5 fL (80.0-98.0); Mean Platelet Volume 8.8 fL (9.4-12.4); Monocytes Absolute Auto 1.7 X10*3/uL (0.1-1.2); Monocytes Percent Auto 9.2 % (2-11); NRBC Pct Auto 0.3 /100WBC (0.0-0.2); Neutrophils Absolute Auto 10.8 x10*3/uL (2.0-8.3); Neutrophils Percent Auto 59.6 % (45-73); Platelet Count 282 X10*3/uL (160-400); Red Blood Count 3.95 X10*6/uL (4.60-5.80); Red Cell Distribution Width 14.6 % (11.0-16.0); SCAN SMEAR FLAG 1; White Blood Count 18.1 X10*3/uL (4.8-10.8)
[2022-04-18] MEDS: predniSONE 20 MG TABLET 30 MG PO (10:25)
[2022-04-18] MEDS: Sennosides 8.6 MG TABLET 17.2 MG PO (10:25)
[2022-04-18] MEDS: Perphenazine 8 MG TABLET 16 MG PO ×2 (10:26→21:21)
[2022-04-18] MEDS: DULoxetine HCl 60 MG CAPSULE.DR 120 MG PO (10:26)
[2022-04-18] MEDS: Docusate Sodium 100 MG CAPSULE PO ×2 (10:26→21:21)
[2022-04-18] MEDS: Benztropine Mesylate 1 MG TABLET PO ×3 (10:28→21:21)
[2022-04-18] MEDS: Omeprazole 40 MG CAPSULE.DR PO (10:28)
[2022-04-18] MEDS: Gabapentin 400 MG CAPSULE 800 MG PO ×3 (10:28→21:21)
[2022-04-18 10:47] LABS: Anion Gap 16 (12-20); Blood Urea Nitrogen 19 mg/dL (9-16); Calcium 8.9 mg/dL (8.4-10.2); Carbon Dioxide 27 mmol/L (22-29); Chloride 102 mmol/L (96-108); Estimated Glomerular Filt Rate > 60; Glucose Random 79 mg/dL (60-115); Potassium 4.5 mmol/L (3.3-5.1); Sodium 140 mmol/L (135-145)
[2022-04-18] MEDS: clonazePAM 0.5 MG TABLET PO ×2 (10:48→21:21)
[2022-04-18 11:52] LABS: SLIDE REVIEW VERIFIED
--- NOTE | 2022-04-18 14:02 | P.PNPSI_ITS ---
Subjective Subjective Date of Service: 04/18/22 Reason For Visit: Psychosis Interim History: pt found in bed, states he is tired, does not want to get up. nevertheless, receptive and polite. states rash continues to do better, left foot still swollen. planning for discharge. no other complaints or requests. per staff, LLE U/S NEG for DVT yesterday. left foot continues with pitting edema. Mental Status Exam Mental Status Exam Narrative: cooperative. less PMR. speech nml in rate, decr in amount, clear. flattened tone, nml latency, nml loudness. thoughts linear and logical. affect constricted, normo-intense, non-labile. mood euthymic. no SI/HI/AVH expressed. Diagnostics Vital Signs (24Hr): Vital Signs - 24 hr 04/17/22 20:35 04/18/22 08:30 Temperature 99.2 F 97.3 F Pulse Rate 102 H 78 Respiratory Rate 18 16 Blood Pressure 129/75 129/75 Pulse Oximetry 94 94 Oxygen Delivery Method Room Air Room Air BMI result Body Mass Index 32.1 Labs Results: 04/18/22 08:55 04/18/22 08:55 Labs: Laboratory Results - last 48 hr 04/12/22 04/12/22 04/12/22 15:46 15:46 15:46 WBC RBC Hgb Hct MCV MCH MCHC RDW Plt Count MPV Immature Gran % (Auto) Neut % (Auto) Lymph % (Auto) [place] % (Auto) Eos % (Auto) Baso % (Auto) Lymph # (Auto) [place] # (Auto) Eos # (Auto) Baso # (Auto) Abs Immat Gran (auto) Absolute Neuts (auto) Absolute Nucleated RBC Nucleated RBC % (auto) Smear Tech's Comments Sodium Potassium Chloride Carbon Dioxide Anion Gap BUN Creatinine Estim Creat Clear Calc Estimated GFR Random Glucose Calcium NICCI Screen NEGATIVE NICCI Titer TNP NICCI Titer 2 TNP NICCI Titer 3 TNP NICCI Pattern TNP NICCI Pattern 2 TNP NICCI Pattern 3 TNP CMV Specimen Source Whole Blood CMV Qnt PCR IU/mL Not Detected CMV Qnt PCR log IU/mL Not Detected EBV Source Whole Blood EBV DNA (PCR) Not Detected 04/18/22 04/18/22 08:55 08:55 WBC 18.1 H RBC 3.95 L Hgb 12.9 L Hct 38.9 L MCV 98.5 H MCH 32.7 MCHC 33.2 RDW 14.6 Plt Count 282 D MPV 8.8 L Immature Gran % (Auto) 4.9 H Neut % (Auto) 59.6 Lymph % (Auto) 23.6 [place] % (Auto) 9.2 Eos % (Auto) 2.5 Baso % (Auto) 0.2 Lymph # (Auto) 4.3 [place] # (Auto) 1.7 H Eos # (Auto) 0.5 H Baso # (Auto) 0.0 Abs Immat Gran (auto) 0.89 H Absolute Neuts (auto) 10.8 H Absolute Nucleated RBC 0.050 H Nucleated RBC % (auto) 0.3 H Smear Tech's Comments VERIFIED Sodium 140 Potassium 4.5 Chloride 102 Carbon Dioxide 27 Anion Gap 16 BUN 19 H Creatinine 0.67 Estim Creat Clear Calc 131.0 Estimated GFR > 60 Random Glucose 79 D Calcium 8.9 NICCI Screen NICCI Titer NICCI Titer 2 NICCI Titer 3 NICCI Pattern NICCI Pattern 2 NICCI Pattern 3 CMV Specimen Source CMV Qnt PCR IU/mL CMV Qnt PCR log IU/mL EBV Source EBV DNA (PCR) Imaging Radiology Impressions: ITS Impressions Head CT 03/20/22 23:40 IMPRESSION: No acute intracranial pathology. 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 Otherwise unremarkable examination. No acute intracranial hemorrhage. Venous Duplex 04/17/22 16:50 IMPRESSION: No DVT demonstrated in the left lower extremity. Medications Medications Current Medications Acetaminophen (Acetaminophen 325 Mg Tablet) 650 mg PO Q6H PRN PRN Reason: Headache/Pain Mild Scale (1-3) Last Admin: 04/11/22 06:02 Dose: 650 mg Al Hydroxide/Mg Hydroxide (Magnesium Hydrox/Alum Hydrox 30 Ml Oral.Susp) 30 ml PO Q6H PRN PRN Reason: Heartburn/Nausea Last Admin: 04/15/22 00:30 Dose: 30 ml Benzocaine (Throat Lozenge, Medicated Lozenge) 1 lozenge MUCOUS MEM Q1H PRN PRN Reason: xerostomia Last Admin: 03/27/22 06:10 Dose: 1 lozenge Benzocaine (Benzocaine 20 % Oral Gel 9 Gm Tube) 1 appl MUCOUS MEM QID PRN; Protocol PRN Reason: tooth pain Last Admin: 04/10/22 20:38 Dose: 1 appl Benztropine Mesylate (Benztropine Mesylate 1 Mg Tablet) 1 mg PO TID [facility] Last Admin: 04/18/22 10:28 Dose: 1 mg Calcium Carbonate (Calcium Carbonate 750 Mg Tab.Chew) 750 mg PO Q4H PRN PRN Reason: Dyspepsia Last Admin: 04/18/22 02:09 Dose: 750 mg Chlorpromazine HCl (Chlorpromazine Hcl 25 Mg Tablet) 25 mg PO Q4H PRN PRN Reason: agitation. Last Admin: 04/16/22 22:40 Dose: 25 mg Clonazepam (Clonazepam 0.5 Mg Tablet) 0.5 mg PO BID [facility] Last Admin: 04/18/22 10:48 Dose: 0.5 mg Diphenhydramine HCl (Diphenhydramine Hcl 25 Mg Tablet) 50 mg PO TID PRN PRN Reason: itching/agitation Last Admin: 04/15/22 15:46 Dose: 50 mg Docusate Sodium (Docusate Sodium 100 Mg Capsule) 100 mg PO BID [facility] Last Admin: 04/18/22 10:26 Dose: 100 mg Duloxetine HCl (Duloxetine Hcl 60 Mg Capsule.Dr) 120 mg PO DAILY [facility] Last Admin: 04/18/22 10:26 Dose: 120 mg Gabapentin (Gabapentin 400 Mg Capsule) 800 mg PO TID [facility] Last Admin: 04/18/22 10:28 Dose: 800 mg Hydrocortisone (Hydrocortisone 1 % Ointment 28.35 Gm Tube) 1 appl TOPICAL BID [facility]; Protocol Last Admin: 04/18/22 10:30 Dose: Not Given Ibuprofen (Ibuprofen 400 Mg Tablet) 400 mg PO TID@0600,1400,2200 PRN PRN Reason: Pain, Moderate (Pain Scale 4-6 Lactic Acid (Ammonium Lactate 12 % Lotion 226 Gm Bottle) 1 appl TOPICAL BID [facility]; Protocol Last Admin: 04/18/22 10:30 Dose: Not Given Lidocaine (Lidocaine 4 % Patch Adh..Patch) 2 patch TRANSDERMA DAILY PRN; Protocol PRN Reason: low back pain Last Admin: 04/17/22 22:49 Dose: 2 patch Lidocaine (Lidocaine 4 % Patch Adh..Patch) 1 patch TRANSDERMA DAILY PRN; Protocol PRN Reason: shoulder pain Last Admin: 04/15/22 22:51 Dose: 1 patch Magnesium Hydroxide (Milk Of Magnesia 30 Ml Oral.Susp) 30 ml PO DAILY PRN PRN Reason: Constipation Last Admin: 04/03/22 15:29 Dose: 30 ml Multi-Ingred Medicated Throat [place] (Throat [place], Medicated 20 Ml Bottle) 1 spray MUCOUS MEM Q2H PRN PRN Reason: Sore Throat Last Admin: 04/12/22 06:35 Dose: 1 spray Nicotine Polacrilex (Nicotine Polacrilex 2 Mg Gum) 2 mg BUCCAL Q1H PRN PRN Reason: Nicotine Cravings Nicotine Polacrilex (Nicotine Polacrilex Lozenge 2 Mg Lozenge) 2 mg BUCCAL Q1H PRN PRN Reason: Nicotine Cravings Last Admin: 04/15/22 14:47 Dose: 2 mg Olanzapine (Olanzapine 10 Mg Vial) 10 mg IM BID PRN PRN Reason: refusal of trilafon, stanislav zuñiga Last Admin: 03/23/22 21:48 Dose: 10 mg Omeprazole (Omeprazole 40 Mg Capsule.Dr) 40 mg PO DAILY@0630 [facility] Last Admin: 04/18/22 10:28 Dose: 40 mg Oxycodone HCl (Oxycodone Hcl Immed Release 5 Mg Tablet) 10 mg PO Q12H PRN PRN Reason: pain dt inflammatory process Last Admin: 04/17/22 19:49 Dose: 10 mg Perphenazine (Perphenazine 8 Mg Tablet) 16 mg PO BID [facility] Last Admin: 04/18/22 10:26 Dose: 16 mg Prednisone (Prednisone 20 Mg Tablet) 30 mg PO BIDWM [facility]; Taper Stop: 04/25/22 16:59 Last Admin: 04/18/22 10:25 Dose: 30 mg Saliva Substitute (Dry Mouth [place] 60 Ml [place]) 1 spray MUCOUS MEM Q2H PRN PRN Reason: xerostomia Last Admin: 04/17/22 14:02 Dose: 1 spray Senna (Sennosides 8.6 Mg Tablet) 17.2 mg PO DAILY [facility] Last Admin: 04/18/22 10:25 Dose: 17.2 mg Tamsulosin HCl (Tamsulosin Hcl 0.4 Mg Capsule) 0.4 mg PO BEDTIME [facility] Last Admin: 04/17/22 21:28 Dose: 0.4 mg Triamcinolone Acetonide (Triamcinolone Acet 0.1 % Cream 15 Gm Tube) 1 appl TOPICAL DAILY [facility]; Protocol Last Admin: 04/18/22 10:31 Dose: Not Given Allergies Allergies Allergy/AdvReac Type Severity Reaction Status Date / Time haloperidol [From HALDOL] Allergy Intermediate UNKNOWN Verified 03/16/22 14:25 Assessment & Plan Assessment & Plan (1) Rash: Status: Acute Code(s): R21 - Rash and other nonspecific skin eruption (2) Schizophrenia: Qualifiers: Schizophrenia type: paranoid schizophrenia Qualified Code(s): F20.0 - Paranoid schizophrenia Status: Acute Code(s): F20.9 - Schizophrenia, unspecified (3) Myelitis: Status: Acute Code(s): G04.91 - Myelitis, unspecified Plan 03/22: continue outpt meds for now.? t/c ranitidine for GERD, incr in gabapentin for pain, trazodone for sleep.? educate re evidence-based mood stabilizers and attempt to get pt to take one of the three. 03/23: agrees to trial of tegretol in place of trileptal.? trileptal DCed and tegretol started at 600 BID.? perphenazine increased to 16 BID and IM back-ups prescribed.? requesting neuro consult to see if any post-lesion syndrome may account for c/o cramps/pain and if there is anything that may be done to help.? thorazine and ativan PRNs prescribed. 03/24: per neuro consult, no need for further neuro w/u or intervention, pt recovering well from myelitis.? check HIV1&2.? steroid cream for rash, artificial saliva/lozenges Rxed.? encouraged to take tegretol, which he had said he would do yesterday but which he has not done (aside from 200 mg). 03/25: rash Dx as scabies, treated yesterday.? took tegretol 600 this morning and reports improved mood today.? encouraged compliance. 03/26: compliant with tegretol past 24H.? appears a bit sedated today; will decrease PRNs.? crural complaints, referred to hospitalist. 03/28: sedated.? decreasing medications which may cause delirium or sedation.? ativan, baclofen, trazodone, hydroxyzine DCed.? started keflex for UTI.? otherwise previous plan continued.? clearly unsteady on his feet, either sedated or getting delirious. 03/29: Patient less sedated alert not aggressive doing better with less sedating medication continue current treatment plan per Dr. Quiñones. 03/30: taper tegretol as likely offender for the rash.? neuro opines likely druge rash.? PT consult for gait.? sensitivities of urine species noted, antibx changed from keflex to nitrofurantoin x 7 days. 03/31: DC tegretol and start trileptal at a 1:1.5 ratio.? pt has tolerated trileptal in the past without adverse reaction.? less sedated today, rash looks a bit better.? keflex also DCed yesterday but rash appears to have begun prior to first dose of keflex. 04/02 dc trileltap low sodium and also risk of rash-increased gabapentin from 600mg tid to 800mg tid and plenty of prns if gets manic. 04/03: much improved mental status from last week.? due either to adequate treatment of UTI with change in antibiotic or DC of tegretol.? trileptal DCed over w/e due to hyponatremia; may need to restart trileptal if mood becomes labile/irritable.? hyponatremia noted within a day or two of DC of tegretol and start of trileptal, meaning it was due to tegretol rather than trileptal.? pt has tolerated trileptal in the past. 04/04: pt clearly more irritable and labile today.? restart trileptal at 450 BID. 04/05: several behavioral outbursts in the past 24H.? increase trileptal to 600 BID.? rash does not appear to be improving. 04/06: skin Bx taken.? rash stable.? appears less irritable today.? no change to mgmt. 04/07: awaiting Bx results.? new/worsened dermatologic condition of blanching deep erythema of head and hands.? ID and hospitalists consulted to evaluate.? initial rash started by 03/24, prior to any new medications.? pt has been on current meds in the past without side effects.? rash suggests drug reaction, however.? does not appear SJS or TEN-like.? initial rash appears as exanthematous rash while secondary rash of the past 24H looks more as if cutaneous small vessel vasculitis rash. 04/08 continue current medications. WBC trending up, w/ eosinophils high. New c/o of tooth ache. will start amoxicillin 500mg po TID x 4 days. 04/09 continue current medications. 04/10: no changes. 04/11: decrease klonopin.? debrox for ears.? otherwise continue current mgmt. 04/12: decrease klonopin.? seen by medicine, see recs above.? wound care consult placed. 04/13: looking better after prednisone start.? wound care pending.? continue current mgmt. 04/14: very substantial improvement in rash.? MS stable.? continue current mgmt. 04/17: trending well psychiatrically. stable without psychosis. rash improving. new 2-3+ pitting edema in LLE. doppler ordered. planning for discharge later this week. 04/18: doppler NEG for DVT. LLE pedal edema persists. WBC count continues to rise. hospitalist was asked to see pt. klonopin decreased to 0.5 BID. I spent ___35___ minutes with the patient and/or on the patient floor today, greater than?50% of which was spent counseling/coordinating care. Reason for contiued inpatient stay Substantial Risk for: inability to function and rapid decompensation
--- NOTE | 2022-04-18 16:27 | HO.PM.IMPN ---
Subjective Subjective Date of Service: 04/19/22 Interval History: Seen and evaluated Rash continue to improve on daily basis Having left lower extremity edema No reported overnight events Review of Systems Review of Systems: Yes all other systems are reviewed and are negative Physical Exam Vital Signs: Vital Signs: Last Vital Signs Temp 97.3 F 04/18/22 08:30 Pulse 78 04/18/22 08:30 Resp 16 04/18/22 08:30 BP 129/75 04/18/22 08:30 Pulse Ox 94 04/18/22 08:30 O2 Del Method 04/18/22 08:30 BMI result Body Mass Index 32.1 Const: Other: Constitutional : Alert, oriented, not in distress Neck : Normal inspection, Supple Cardiovascular : RRR, no JVP, left lower extremity +1 pitting edema Respiratory : fair bilateral air entry, no crackles, wheezes or rhonchi Gastrointestinal: soft, lax, Normal bowel sounds, Non tender Skin : Warm, Dry, improving maculopapular eruption involving face, scalp, trunk, abdomen, upper and lower extremities Neurological : Alert & oriented x3, No focal deficit Objective Data Active Medications Acetaminophen (Acetaminophen 325 Mg Tablet) 650 mg PO Q6H PRN PRN Reason: Headache/Pain Mild Scale (1-3) Last Admin: 04/11/22 06:02 Dose: 650 mg Documented By: ADRIANA Al Hydroxide/Mg Hydroxide (Magnesium Hydrox/Alum Hydrox 30 Ml Oral.Susp) 30 ml PO Q6H PRN PRN Reason: Heartburn/Nausea Last Admin: 04/15/22 00:30 Dose: 30 ml Documented By: SELENE Benzocaine (Throat Lozenge, Medicated Lozenge) 1 lozenge MUCOUS MEM Q1H PRN PRN Reason: xerostomia Last Admin: 03/27/22 06:10 Dose: 1 lozenge Documented By: FLEMELISSA Benzocaine (Benzocaine 20 % Oral Gel 9 Gm Tube) 1 appl MUCOUS MEM QID PRN; Protocol PRN Reason: tooth pain Last Admin: 04/10/22 20:38 Dose: 1 appl Documented By: ADRIANA Benztropine Mesylate (Benztropine Mesylate 1 Mg Tablet) 1 mg PO TID [facility] Last Admin: 04/18/22 15:02 Dose: 1 mg Documented By: DANYA Calcium Carbonate (Calcium Carbonate 750 Mg Tab.Chew) 750 mg PO Q4H PRN PRN Reason: Dyspepsia Last Admin: 04/18/22 02:09 Dose: 750 mg Documented By: ADRIANA Chlorpromazine HCl (Chlorpromazine Hcl 25 Mg Tablet) 25 mg PO Q4H PRN PRN Reason: agitation. Last Admin: 04/16/22 22:40 Dose: 25 mg Documented By: ADRIANA Clonazepam (Clonazepam 0.5 Mg Tablet) 0.5 mg PO BID [facility] Last Admin: 04/18/22 10:48 Dose: 0.5 mg Documented By: DANYA Diphenhydramine HCl (Diphenhydramine Hcl 25 Mg Tablet) 50 mg PO TID PRN PRN Reason: itching/agitation Last Admin: 04/15/22 15:46 Dose: 50 mg Documented By: PITO Docusate Sodium (Docusate Sodium 100 Mg Capsule) 100 mg PO BID [facility] Last Admin: 04/18/22 10:26 Dose: 100 mg Documented By: DANYA Duloxetine HCl (Duloxetine Hcl 60 Mg Capsule.Dr) 120 mg PO DAILY [facility] Last Admin: 04/18/22 10:26 Dose: 120 mg Documented By: DANYA Gabapentin (Gabapentin 400 Mg Capsule) 800 mg PO TID [facility] Last Admin: 04/18/22 15:02 Dose: 800 mg Documented By: DANYA Hydrocortisone (Hydrocortisone 1 % Ointment 28.35 Gm Tube) 1 appl TOPICAL BID [facility]; Protocol Last Admin: 04/18/22 10:30 Dose: Not Given Documented By: DANYA Non-Admin Reason: Patient Refused Ibuprofen (Ibuprofen 400 Mg Tablet) 400 mg PO TID@0600,1400,2200 PRN PRN Reason: Pain, Moderate (Pain Scale 4-6 Lactic Acid (Ammonium Lactate 12 % Lotion 226 Gm Bottle) 1 appl TOPICAL BID [facility]; Protocol Last Admin: 04/18/22 10:30 Dose: Not Given Documented By: DANYA Non-Admin Reason: Patient Refused Lidocaine (Lidocaine 4 % Patch Adh..Patch) 2 patch TRANSDERMA DAILY PRN; Protocol PRN Reason: low back pain Last Admin: 04/17/22 22:49 Dose: 2 patch Documented By: ADRIANA Lidocaine (Lidocaine 4 % Patch Adh..Patch) 1 patch TRANSDERMA DAILY PRN; Protocol PRN Reason: shoulder pain Last Admin: 04/15/22 22:51 Dose: 1 patch Documented By: SELENE Magnesium Hydroxide (Milk Of Magnesia 30 Ml Oral.Susp) 30 ml PO DAILY PRN PRN Reason: Constipation Last Admin: 04/03/22 15:29 Dose: 30 ml Documented By: YOAV Multi-Ingred Medicated Throat [place] (Throat [place], Medicated 20 Ml Bottle) 1 spray MUCOUS MEM Q2H PRN PRN Reason: Sore Throat Last Admin: 04/12/22 06:35 Dose: 1 spray Documented By: DEIDRA Nicotine Polacrilex (Nicotine Polacrilex 2 Mg Gum) 2 mg BUCCAL Q1H PRN PRN Reason: Nicotine Cravings Nicotine Polacrilex (Nicotine Polacrilex Lozenge 2 Mg Lozenge) 2 mg BUCCAL Q1H PRN PRN Reason: Nicotine Cravings Last Admin: 04/15/22 14:47 Dose: 2 mg Documented By: PITO Olanzapine (Olanzapine 10 Mg Vial) 10 mg IM BID PRN PRN Reason: refusal of trilafon, per yogesh Last Admin: 03/23/22 21:48 Dose: 10 mg Documented By: CLARITA Omeprazole (Omeprazole 40 Mg Capsule.Dr) 40 mg PO DAILY@0630 [facility] Last Admin: 04/18/22 10:28 Dose: 40 mg Documented By: DANYA Oxycodone HCl (Oxycodone Hcl Immed Release 5 Mg Tablet) 10 mg PO Q12H PRN PRN Reason: pain dt inflammatory process Last Admin: 04/17/22 19:49 Dose: 10 mg Documented By: ADRIANA Comments: okay to give 2 hours early per ALARM FIELD TECHNICIAN Perphenazine (Perphenazine 8 Mg Tablet) 16 mg PO BID [facility] Last Admin: 04/18/22 10:26 Dose: 16 mg Documented By: DANYA Prednisone (Prednisone 10 Mg Tablet) 30 mg PO DAILY [facility]; Taper Stop: 04/30/22 08:59 Saliva Substitute (Dry Mouth [place] 60 Ml [place]) 1 spray MUCOUS MEM Q2H PRN PRN Reason: xerostomia Last Admin: 04/17/22 14:02 Dose: 1 spray Documented By: ALBARO Senna (Sennosides 8.6 Mg Tablet) 17.2 mg PO DAILY [facility] Last Admin: 04/18/22 10:25 Dose: 17.2 mg Documented By: DANYA Tamsulosin HCl (Tamsulosin Hcl 0.4 Mg Capsule) 0.4 mg PO BEDTIME [facility] Last Admin: 04/17/22 21:28 Dose: 0.4 mg Documented By: ADRIANA Triamcinolone Acetonide (Triamcinolone Acet 0.1 % Cream 15 Gm Tube) 1 appl TOPICAL DAILY [facility]; Protocol Last Admin: 04/18/22 10:31 Dose: Not Given Documented By: DANYA Non-Admin Reason: Patient Refused Labs CBC & Chem 7: 04/18/22 08:55 04/18/22 08:55 Labs: Laboratory Results - last 24 hr 04/12/22 04/18/22 04/18/22 15:46 08:55 08:55 MCV 98.5 H MCH 32.7 MCHC 33.2 RDW 14.6 Plt Count 282 D MPV 8.8 L Immature Gran % (Auto) 4.9 H Neut % (Auto) 59.6 Lymph % (Auto) 23.6 [place] % (Auto) 9.2 Eos % (Auto) 2.5 Baso % (Auto) 0.2 Lymph # (Auto) 4.3 [place] # (Auto) 1.7 H Eos # (Auto) 0.5 H Baso # (Auto) 0.0 Abs Immat Gran (auto) 0.89 H Absolute Neuts (auto) 10.8 H Absolute Nucleated RBC 0.050 H Nucleated RBC % (auto) 0.3 H Smear Tech's Comments VERIFIED Anion Gap 16 Estim Creat Clear Calc 131.0 Estimated GFR > 60 Random Glucose 79 D Calcium 8.9 EBV Source Whole Blood EBV DNA (PCR) Not Detected Assessment and Plan (1) Rash: Status: Acute (2) Leg edema: Status: Acute Plan 51 years old with PMH of schizophrenia, substance abuse, demyelinating disease who developed progressive rash that has been getting worse over the course of hospital stay. Generalized Skin rash Worsening since admission Thought to be secondary to medications, Trileptal, IVIG Skin biopsy showing spongiotic dermatitis, likely allergic reaction to medication or food negative CRP, LDH, ESR, NICCI, liver and kidney functions negative CMV and EBV Continue tapering dose of steroids: start 30 mg prednisone daily, decrease by 10 mg every 3 days continue ammonia lactate lotion and local steroids Benadryl as needed for itching Will need to follow-up with PCP after discharge and if needed to see cardiopulmonary physical therapist can be referred from PCP Pitting edema Left lower extremity Negative ultrasound for DVT Likely fluid overload, to give a dose of Lasix Check BNP Leukocytosis 2/2 steroid therapy not sepsis repeat CBC as outpatient please contact hospitalist team with any further questions Quality Stroke Does the patient have a stroke diagnosis?: No VTE Prior VTE?: No VTE Risk Level:: Medical - low VTE Device Contraindication: Treatment Not Indicated VTE Drug Contraindication: Treatment Not Indicated
[2022-04-18] MEDS: Furosemide 20 MG TABLET PO (16:48)
[2022-04-18 17:00] VITALS: BP 119/66; PULSE 94; RESP 18; TEMP 37; O2SAT 100
[2022-04-18] MEDS: Nicotine Polacrilex 2 MG GUM BUCCAL (20:32)
[2022-04-18] MEDS: oxyCODONE HCl Immed Release 5 MG TABLET 10 MG PO (20:44)
[2022-04-18] MEDS: Tamsulosin HCL 0.4 MG CAPSULE PO (21:21)
[2022-04-18] MEDS: Ammonium Lactate 12 % Lotion 226 GM BOTTLE 1 APPL TOPICAL (21:23)
[2022-04-18] MEDS: Hydrocortisone 1 % Ointment 28.35 GM TUBE 1 APPL TOPICAL (21:42)
[2022-04-18] MEDS: traZODone HCL 50 MG TABLET PO (22:42)
[2022-04-19] MEDS: DULoxetine HCl 60 MG CAPSULE.DR 120 MG PO (08:14)
[2022-04-19] MEDS: Gabapentin 400 MG CAPSULE 800 MG PO ×3 (08:15→22:10)
[2022-04-19] MEDS: Sennosides 8.6 MG TABLET 17.2 MG PO (08:15)
[2022-04-19] MEDS: Perphenazine 8 MG TABLET 16 MG PO ×2 (08:16→22:09)
[2022-04-19] MEDS: clonazePAM 0.5 MG TABLET PO ×2 (08:16→20:59)
[2022-04-19] MEDS: predniSONE 10 MG TABLET 30 MG PO (08:16)
[2022-04-19] MEDS: Docusate Sodium 100 MG CAPSULE PO ×2 (08:17→22:11)
[2022-04-19] MEDS: Benztropine Mesylate 1 MG TABLET PO ×3 (08:17→22:10)
[2022-04-19] MEDS: Omeprazole 40 MG CAPSULE.DR PO (08:17)
[2022-04-19] MEDS: oxyCODONE HCl Immed Release 5 MG TABLET 10 MG PO ×2 (08:23→23:28)
[2022-04-19 08:30] VITALS: BP 103/58; PULSE 81; RESP 16; TEMP 37; O2SAT 94
[2022-04-19 10:06] LABS: B Type Natriuretic Peptide < 10 pg/mL (<100)
[2022-04-19 14:07] LABS: C Reactive Protein 0.16 mg/dL (< or = 0.50)
[2022-04-19] MEDS: Ammonium Lactate 12 % Lotion 226 GM BOTTLE 1 APPL TOPICAL ×2 (14:45→22:11)
--- NOTE | 2022-04-19 14:45 | HO.PSYCHPN ---
Subjective Subjective Date of Service: 04/19/22 Reason For Visit: Psychosis Interim History: calm and cooperative, dressed and up and about the unit today. rash appears somewhat worse today. pt states he has just had a shower and agrees it looks a little worse, doesn't know why. he is planning to F/U with his PCP for pain and rash complaints. no other complaints or requests, planning for discharge tomorrow. per staff, did not attend groups yesterday. slept all day yesterday. reports he slept after 0200 last niht, staff report he was up all night. c/o 810 neck pain. Mental Status Exam Mental Status Exam Narrative: cooperative. less PMR. speech nml in rate, decr in amount, clear. flattened tone, nml latency, nml loudness. thoughts linear and logical. affect constricted, normo-intense, non-labile. mood euthymic. no SI/HI/AVH expressed. Diagnostics Vital Signs (24Hr): Vital Signs - 24 hr 04/18/22 17:00 04/19/22 08:30 Temperature 98.6 F 98.6 F Pulse Rate 94 81 Respiratory Rate 18 16 Blood Pressure 119/66 103/58 L Pulse Oximetry 100 94 Oxygen Delivery Method Room Air Room Air BMI result Body Mass Index 32.1 Labs Results: 04/18/22 08:55 04/18/22 08:55 Labs: Laboratory Results - last 48 hr 04/12/22 04/18/22 04/18/22 15:46 08:55 08:55 WBC 18.1 H RBC 3.95 L Hgb 12.9 L Hct 38.9 L MCV 98.5 H MCH 32.7 MCHC 33.2 RDW 14.6 Plt Count 282 D MPV 8.8 L Immature Gran % (Auto) 4.9 H Neut % (Auto) 59.6 Lymph % (Auto) 23.6 Noble % (Auto) 9.2 Eos % (Auto) 2.5 Baso % (Auto) 0.2 Lymph # (Auto) 4.3 Noble # (Auto) 1.7 H Eos # (Auto) 0.5 H Baso # (Auto) 0.0 Abs Immat Gran (auto) 0.89 H Absolute Neuts (auto) 10.8 H Absolute Nucleated RBC 0.050 H Nucleated RBC % (auto) 0.3 H Smear Tech's Comments VERIFIED Sodium 140 Potassium 4.5 Chloride 102 Carbon Dioxide 27 Anion Gap 16 BUN 19 H Creatinine 0.67 Estim Creat Clear Calc 131.0 Estimated GFR > 60 Random Glucose 79 D Calcium 8.9 C-Reactive Protein B-Natriuretic Peptide EBV Source Whole Blood EBV DNA (PCR) Not Detected 04/19/22 04/19/22 09:10 09:10 WBC RBC Hgb Hct MCV MCH MCHC RDW Plt Count MPV Immature Gran % (Auto) Neut % (Auto) Lymph % (Auto) Noble % (Auto) Eos % (Auto) Baso % (Auto) Lymph # (Auto) Noble # (Auto) Eos # (Auto) Baso # (Auto) Abs Immat Gran (auto) Absolute Neuts (auto) Absolute Nucleated RBC Nucleated RBC % (auto) Smear Tech's Comments Sodium Potassium Chloride Carbon Dioxide Anion Gap BUN Creatinine Estim Creat Clear Calc Estimated GFR Random Glucose Calcium C-Reactive Protein 0.16 B-Natriuretic Peptide < 10 EBV Source EBV DNA (PCR) Imaging Radiology Impressions: ITS Impressions Head CT 03/20/22 23:40 IMPRESSION: No acute intracranial pathology. 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 Otherwise unremarkable examination. No acute intracranial hemorrhage. Venous Duplex 04/17/22 16:50 IMPRESSION: No DVT demonstrated in the left lower extremity. Medications Medications Current Medications Acetaminophen (Acetaminophen 325 Mg Tablet) 650 mg PO Q6H PRN PRN Reason: Headache/Pain Mild Scale (1-3) Last Admin: 04/11/22 06:02 Dose: 650 mg Al Hydroxide/Mg Hydroxide (Magnesium Hydrox/Alum Hydrox 30 Ml Oral.Susp) 30 ml PO Q6H PRN PRN Reason: Heartburn/Nausea Last Admin: 04/15/22 00:30 Dose: 30 ml Benzocaine (Throat Lozenge, Medicated Lozenge) 1 lozenge MUCOUS MEM Q1H PRN PRN Reason: xerostomia Last Admin: 03/27/22 06:10 Dose: 1 lozenge Benzocaine (Benzocaine 20 % Oral Gel 9 Gm Tube) 1 appl MUCOUS MEM QID PRN; Protocol PRN Reason: tooth pain Last Admin: 04/10/22 20:38 Dose: 1 appl Benztropine Mesylate (Benztropine Mesylate 1 Mg Tablet) 1 mg PO TID ON LICENSE OF [facility] Last Admin: 04/19/22 14:44 Dose: 1 mg Calcium Carbonate (Calcium Carbonate 750 Mg Tab.Chew) 750 mg PO Q4H PRN PRN Reason: Dyspepsia Last Admin: 04/18/22 02:09 Dose: 750 mg Chlorpromazine HCl (Chlorpromazine Hcl 25 Mg Tablet) 25 mg PO Q4H PRN PRN Reason: agitation. Last Admin: 04/16/22 22:40 Dose: 25 mg Clonazepam (Clonazepam 0.5 Mg Tablet) 0.5 mg PO BID ON LICENSE OF [facility] Last Admin: 04/19/22 08:16 Dose: 0.5 mg Diphenhydramine HCl (Diphenhydramine Hcl 25 Mg Tablet) 50 mg PO TID PRN PRN Reason: itching/agitation Last Admin: 04/15/22 15:46 Dose: 50 mg Docusate Sodium (Docusate Sodium 100 Mg Capsule) 100 mg PO BID ON LICENSE OF [facility] Last Admin: 04/19/22 08:17 Dose: 100 mg Duloxetine HCl (Duloxetine Hcl 60 Mg Capsule.Dr) 120 mg PO DAILY ON LICENSE OF [facility] Last Admin: 04/19/22 08:14 Dose: 120 mg Gabapentin (Gabapentin 400 Mg Capsule) 800 mg PO TID ON LICENSE OF [facility] Last Admin: 04/19/22 14:44 Dose: 800 mg Hydrocortisone (Hydrocortisone 1 % Ointment 28.35 Gm Tube) 1 appl TOPICAL BID ON LICENSE OF [facility]; Protocol Last Admin: 04/18/22 21:42 Dose: 1 appl Ibuprofen (Ibuprofen 400 Mg Tablet) 400 mg PO TID@0600,1400,2200 PRN PRN Reason: Pain, Moderate (Pain Scale 4-6 Lactic Acid (Ammonium Lactate 12 % Lotion 226 Gm Bottle) 1 appl TOPICAL BID CHANDA; Protocol Last Admin: 04/19/22 14:45 Dose: 1 appl Lidocaine (Lidocaine 4 % Patch Adh..Patch) 2 patch TRANSDERMA DAILY PRN; Protocol PRN Reason: low back pain Last Admin: 04/17/22 22:49 Dose: 2 patch Lidocaine (Lidocaine 4 % Patch Adh..Patch) 1 patch TRANSDERMA DAILY PRN; Protocol PRN Reason: shoulder pain Last Admin: 04/15/22 22:51 Dose: 1 patch Magnesium Hydroxide (Milk Of Magnesia 30 Ml Oral.Susp) 30 ml PO DAILY PRN PRN Reason: Constipation Last Admin: 04/03/22 15:29 Dose: 30 ml Multi-Ingred Medicated Throat [place] (Throat [place], Medicated 20 Ml Bottle) 1 spray MUCOUS MEM Q2H PRN PRN Reason: Sore Throat Last Admin: 04/12/22 06:35 Dose: 1 spray Nicotine Polacrilex (Nicotine Polacrilex 2 Mg Gum) 2 mg BUCCAL Q1H PRN PRN Reason: Nicotine Cravings Last Admin: 04/18/22 20:32 Dose: 2 mg Nicotine Polacrilex (Nicotine Polacrilex Lozenge 2 Mg Lozenge) 2 mg BUCCAL Q1H PRN PRN Reason: Nicotine Cravings Last Admin: 04/15/22 14:47 Dose: 2 mg Olanzapine (Olanzapine 10 Mg Vial) 10 mg IM BID PRN PRN Reason: refusal of trilafon, stanislav zuñiga Last Admin: 03/23/22 21:48 Dose: 10 mg Omeprazole (Omeprazole 40 Mg Capsule.Dr) 40 mg PO DAILY@0630 ON LICENSE OF [facility] Last Admin: 04/19/22 08:17 Dose: 40 mg Oxycodone HCl (Oxycodone Hcl Immed Release 5 Mg Tablet) 10 mg PO Q12H PRN PRN Reason: pain dt inflammatory process Last Admin: 04/19/22 08:23 Dose: 10 mg Perphenazine (Perphenazine 8 Mg Tablet) 16 mg PO BID ON LICENSE OF [facility] Last Admin: 04/19/22 08:16 Dose: 16 mg Prednisone (Prednisone 10 Mg Tablet) 30 mg PO DAILY ON LICENSE OF [facility]; Taper Stop: 04/30/22 08:59 Last Admin: 04/19/22 08:16 Dose: 30 mg Saliva Substitute (Dry [place]outh [place] 60 Ml [place]) 1 spray MUCOUS MEM Q2H PRN PRN Reason: xerostomia Last Admin: 04/17/22 14:02 Dose: 1 spray Senna (Sennosides 8.6 Mg Tablet) 17.2 mg PO DAILY ON LICENSE OF [facility] Last Admin: 04/19/22 08:15 Dose: 17.2 mg Tamsulosin HCl (Tamsulosin Hcl 0.4 Mg Capsule) 0.4 mg PO BEDTIME ON LICENSE OF [facility] Last Admin: 04/18/22 21:21 Dose: 0.4 mg Trazodone HCl (Trazodone Hcl 50 Mg Tablet) 50 mg PO BEDTIME PRN PRN Reason: insomnia Last Admin: 04/18/22 22:42 Dose: 50 mg Triamcinolone Acetonide (Triamcinolone Acet 0.1 % Cream 15 Gm Tube) 1 appl TOPICAL DAILY [place]; Protocol Last Admin: 04/19/22 08:17 Dose: Not Given Allergies Allergies Allergy/AdvReac Type Severity Reaction Status Date / Time haloperidol [From HALDOL] Allergy Intermediate UNKNOWN Verified 03/16/22 14:25 Assessment & Plan Assessment & Plan (1) Rash: Status: Acute Code(s): R21 - Rash and other nonspecific skin eruption Assessment and Plan: 51 years old with PMH of schizophrenia, substance abuse, demyelinating disease who developed progressive rash that has been getting worse over the course of hospital stay. Generalized Skin rash Worsening since admission Thought to be secondary to medications, Trileptal, IVIG Skin biopsy showing spongiotic dermatitis, likely allergic reaction to medication or food negative CRP, LDH, ESR, NICCI, liver and kidney functions negative CMV and EBV Continue tapering dose of steroids: start 30 mg prednisone daily, decrease by 10 mg every 3 days continue ammonia lactate lotion and local steroids Benadryl as needed for itching Will need to follow-up with PCP after discharge and if needed to see patient transporter can be referred from PCP Pitting edema Left lower extremity Negative ultrasound for DVT Likely fluid overload, to give a dose of Lasix Check BNP Leukocytosis 2/2 steroid therapy not sepsis repeat CBC as outpatient please contact hospitalist team with any further questions (2) Leg edema: Status: Acute Code(s): R60.0 - Localized edema (3) Acute psychosis: Status: Acute Code(s): F23 - Brief psychotic disorder (4) Cervical myelopathy: Status: Acute Code(s): G95.9 - Disease of spinal cord, unspecified Plan 03/22: continue outpt meds for now.? t/c ranitidine for GERD, incr in gabapentin for pain, trazodone for sleep.? educate re evidence-based mood stabilizers and attempt to get pt to take one of the three. 03/23: agrees to trial of tegretol in place of trileptal.? trileptal DCed and tegretol started at 600 BID.? perphenazine increased to 16 BID and IM back-ups prescribed.? requesting neuro consult to see if any post-lesion syndrome may account for c/o cramps/pain and if there is anything that may be done to help.? thorazine and ativan PRNs prescribed. 03/24: per neuro consult, no need for further neuro w/u or intervention, pt recovering well from myelitis.? check HIV1&2.? steroid cream for rash, artificial saliva/lozenges Rxed.? encouraged to take tegretol, which he had said he would do yesterday but which he has not done (aside from 200 mg). 03/25: rash Dx as scabies, treated yesterday.? took tegretol 600 this morning and reports improved mood today.? encouraged compliance. 03/26: compliant with tegretol past 24H.? appears a bit sedated today; will decrease PRNs.? crural complaints, referred to hospitalist. 03/28: sedated.? decreasing medications which may cause delirium or sedation.? ativan, baclofen, trazodone, hydroxyzine DCed.? started keflex for UTI.? otherwise previous plan continued.? clearly unsteady on his feet, either sedated or getting delirious. 03/29: Patient less sedated alert not aggressive doing better with less sedating medication continue current treatment plan per Dr. Quiñones. 03/30: taper tegretol as likely offender for the rash.? neuro opines likely druge rash.? PT consult for gait.? sensitivities of urine species noted, antibx changed from keflex to nitrofurantoin x 7 days. 03/31: DC tegretol and start trileptal at a 1:1.5 ratio.? pt has tolerated trileptal in the past without adverse reaction.? less sedated today, rash looks a bit better.? keflex also DCed yesterday but rash appears to have begun prior to first dose of keflex. 04/02 dc trileltap low sodium and also risk of rash-increased gabapentin from 600mg tid to 800mg tid and plenty of prns if gets manic. 04/03: much improved mental status from last week.? due either to adequate treatment of UTI with change in antibiotic or DC of tegretol.? trileptal DCed over w/e due to hyponatremia; may need to restart trileptal if mood becomes labile/irritable.? hyponatremia noted within a day or two of DC of tegretol and start of trileptal, meaning it was due to tegretol rather than trileptal.? pt has tolerated trileptal in the past. 04/04: pt clearly more irritable and labile today.? restart trileptal at 450 BID. 04/05: several behavioral outbursts in the past 24H.? increase trileptal to 600 BID.? rash does not appear to be improving. 04/06: skin Bx taken.? rash stable.? appears less irritable today.? no change to mgmt. 04/07: awaiting Bx results.? new/worsened dermatologic condition of blanching deep erythema of head and hands.? ID and hospitalists consulted to evaluate.? initial rash started by 03/24, prior to any new medications.? pt has been on current meds in the past without side effects.? rash suggests drug reaction, however.? does not appear SJS or TEN-like.? initial rash appears as exanthematous rash while secondary rash of the past 24H looks more as if cutaneous small vessel vasculitis rash. 04/08 continue current medications. WBC trending up, w/ eosinophils high. New c/o of tooth ache. will start amoxicillin 500mg po TID x 4 days. 04/09 continue current medications. 04/10: no changes. 04/11: decrease klonopin.? debrox for ears.? otherwise continue current mgmt. 04/12: decrease klonopin.? seen by medicine, see recs above.? wound care consult placed. 04/13: looking better after prednisone start.? wound care pending.? continue current mgmt. 04/14: very substantial improvement in rash.? MS stable.? continue current mgmt. 04/17: trending well psychiatrically.? stable without psychosis.? rash improving.? new 2-3+ pitting edema in LLE.? doppler ordered.? planning for discharge later this week. 04/18: doppler NEG for DVT.? LLE pedal edema persists.? WBC count continues to rise.? hospitalist was asked to see pt.? klonopin decreased to 0.5 BID. 04/19: per medicine, edema likely fluid overload, diuretic given. elevated WBC likely 2/2 prednisone, no intervention at this time. begin prednisone taper, discharge tomorrow. CRP and BNP WNL. I spent ___25___ minutes with the patient and/or on the patient floor today, greater than?50% of which was spent counseling/coordinating care. Reason for contiued inpatient stay Substantial Risk for: inability to function and rapid decompensation
[2022-04-19] MEDS: diphenhydrAMINE HCL 25 MG TABLET 50 MG PO (17:27)
[2022-04-19 21:00] VITALS: BP 126/68; PULSE 105; RESP 18; TEMP 36.7; O2SAT 94
[2022-04-19] MEDS: Tamsulosin HCL 0.4 MG CAPSULE PO (22:10)
[2022-04-20 08:30] VITALS: BP 125/68; PULSE 106; RESP 18; TEMP 37; O2SAT 96
[2022-04-20] MEDS: Omeprazole 40 MG CAPSULE.DR PO (08:45)
[2022-04-20] MEDS: Benztropine Mesylate 1 MG TABLET PO (08:45)
[2022-04-20] MEDS: Sennosides 8.6 MG TABLET 17.2 MG PO (08:45)
[2022-04-20] MEDS: clonazePAM 0.5 MG TABLET PO (08:45)
[2022-04-20] MEDS: Gabapentin 400 MG CAPSULE 800 MG PO (08:45)
[2022-04-20] MEDS: Docusate Sodium 100 MG CAPSULE PO (08:45)
[2022-04-20] MEDS: Perphenazine 8 MG TABLET 16 MG PO (08:45)
[2022-04-20] MEDS: predniSONE 10 MG TABLET 30 MG PO (08:45)
[2022-04-20] MEDS: DULoxetine HCl 60 MG CAPSULE.DR 120 MG PO (08:45)
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
--- NOTE | 2022-04-20 11:46 | PC.NURSE ---
Maurice is alert, fully oriented, pleasant and cooperative with discharge process. Nurse to nurse called to Irina Bennett RN at [facility] with patient approval. Maurice denies ideation, plan or intent to harm self or others. He is future oriented to returning to [facility] on discharge and attending follow up appointments.
[2022-04-20] MEDS: oxyCODONE HCl Immed Release 5 MG TABLET 10 MG PO (12:49)
== END 2022-04-20 13:03 | disposition home or self-care (01) | DRG 885 ==
LOC: HO.ED 03-21 07:09 → HO.PADLT16 03-21 15:33
PROVIDERS: Internal Medicine; Nurse Practitioner Family; Psychiatry & Neurology Psychiatry; Registered Nurse; Social Worker; Student in an Organized Health Care Education/Training Program; Admitting Provider Psychiatry & Neurology Psychiatry; Emergency Provider Emergency Medicine; PCP Family Medicine Adult Medicine; Visit Provider Psychiatry & Neurology Psychiatry
DX: F20.0 Paranoid schizophrenia (principal); G04.91 Myelitis, unspecified; F11.20 Opioid dependence, uncomplicated; L27.0 Generalized skin eruption due to drugs and medicaments taken internally; T42.1X5A Adverse effect of iminostilbenes, initial encounter; N40.0 Benign prostatic hyperplasia without lower urinary tract symptoms; F17.210 Nicotine dependence, cigarettes, uncomplicated; Z20.822 Contact with and (suspected) exposure to COVID-19; Z71.6 Tobacco abuse counseling; Z88.8 Allergy status to other drugs, medicaments and biological substances; Z79.52 Long term (current) use of systemic steroids; Z79.899 Other long term (current) drug therapy
CPT/HCPCS: 36415; 70450; 80048; 80053; 80061; 80076; 80143; 80179; 80307; 81001; 81003; 82077; 82607; 82746; 83036; 83615; 83690; 83880; 84443; 84484; 85025; 85027; 86038; 86039; 86140; 86695; 86696; 87086; 87088; 87186; 87389; 87491; 87497; 87591; 87635; 87798; 88305; 88312; 90715; 93005; 93971; 97116; 97162; 99285; J2060; J3230; Q0163

== ENCOUNTER 2022-08-29 08:00 | Outpatient (REF) | payer MEDICARE, MEDICAID, SELFPAY ==
[2022-08-30 17:17] LABS: Amphetamine Screen Urine Not Detected (Not Detect); Barbiturates, Urine Not Detected (Not Detect); Benzodiazepines Screen Urine Not Detected (Not Detect); Cannabinoid Screen Urine POSITIVE (Not Detect); Cocaine Screen Urine Not Detected (Not Detect); Fentanyl, urine Not Detected (Not Detect); Opiate Screen Urine Not Detected (Not Detect); Phencyclidine Screen Urine Not Detected (Not Detect)
== END 2022-08-29 08:01 | disposition home or self-care (01) ==
LOC: HO.LNP 08:00
PROVIDERS: Visit Provider Psychiatry & Neurology Psychiatry
DX: F19.21 Other psychoactive substance dependence, in remission (principal); Z79.899 Other long term (current) drug therapy
CPT/HCPCS: 80307

== ENCOUNTER 2022-10-26 12:24 | Outpatient (REF) | payer MEDICARE, MEDICAID, SELFPAY ==
[2022-10-26 12:38] LABS: MANUAL DIFF FLAG NO
[2022-10-26 13:12] LABS: Basophils Absolute Auto 0.1 X10*3/uL (0.0-0.2); Basophils Percent Auto 0.6 % (0-2); Eosinophils Absolute Auto 0.5 X10*3/uL (0.0-0.4); Eosinophils Percent Auto 4.7 % (0-4); Hemoglobin 14.8 g/dl (14.0-18.0); Imm Gran Abs Auto 0.03 X10*3/uL (0.00-0.03); Imm Gran Pct Auto 0.3 % (0.0-0.4); Lymphocytes Absolute Auto 3.5 X10*3/uL (1.2-4.9); Lymphocytes Percent Auto 35.5 % (20-40); Mean Corpuscular HGB Conc 33.6 g/dl (31.0-36.0); Mean Corpuscular Hemoglobin 31.6 pg (27.0-33.0); Mean Corpuscular Volume 93.8 fL (80.0-98.0); Mean Platelet Volume 9.4 fL (9.4-12.4); Monocytes Absolute Auto 0.8 X10*3/uL (0.1-1.2); Monocytes Percent Auto 8.4 % (2-11); Neutrophils Percent Auto 50.5 % (45-73); Platelet Count 257 X10*3/uL (160-400); Red Blood Count 4.69 X10*6/uL (4.60-5.80); Red Cell Distribution Width 13.6 % (11.0-16.0); White Blood Count 9.8 X10*3/uL (4.8-10.8)
[2022-10-26 13:49] LABS: Alanine Aminotransferase 23 U/L (0-40); Albumin Level 4.1 g/dL (3.5-5.0); Alkaline Phosphatase 49 U/L (39-117); Anion Gap 14 (12-20); Aspartate Amino Transferase 23 U/L (5-37); Bilirubin Total 0.3 mg/dL (0.0-1.0); Blood Urea Nitrogen 15 mg/dL (9-16); Calcium 9.1 mg/dL (8.4-10.2); Carbon Dioxide 26 mmol/L (22-29); Chloride 106 mmol/L (96-108); Cholesterol 200 mg/dL; Estimated Glomerular Filt Rate > 60; Glucose Fasting 91 mg/dL (60-99); HDL Cholesterol 38 mg/dL; LDL Cholesterol Calculated 138 mg/dl; Potassium 4.5 mmol/L (3.3-5.1); Sodium 141 mmol/L (135-145); Total Protein 6.7 g/dL (6.5-8.0); Triglycerides 122 mg/dL
== END 2022-10-26 12:25 | disposition home or self-care (01) ==
LOC: HO.LAB 12:24
PROVIDERS: PCP Internal Medicine; Visit Provider Internal Medicine
DX: E03.9 Hypothyroidism, unspecified (principal); N28.9 Disorder of kidney and ureter, unspecified; D64.9 Anemia, unspecified; E78.5 Hyperlipidemia, unspecified
CPT/HCPCS: 36415; 80053; 80061; 84443; 85025

== ENCOUNTER 2023-04-06 13:34 | Outpatient (AMB) | payer MEDICARE, MEDICAID, SELFPAY ==
[2023-04-06 13:36] VITALS: BP 118/78; PULSE 80; O2SAT 96; BMI 31.2
--- NOTE | 2023-04-06 13:36 | MHC.PC.OV ---
Vital Signs 04/06/23 13:36 Height 5 ft 4 in Weight 181 lb 8 oz BMI 31.2 BP 118/78 Blood Pressure Location Lt brachial Position Sitting Pulse 80 Pulse Source Pulse Oximeter Pulse Oximetry (%) 96 Oxygen Delivery Method Room Air Intake Visit Reasons: 3mth f/u Leather Tacker Required: No Accompanied by: Self / Same As Patient Allergies haloperidol [From HALDOL] Allergy (Intermediate, Verified 04/06/23 13:41) UNKNOWN Medication List - Last Reconciled 04/06/23 by Alberto Hernandez MD ammonium lactate 12% 1 appl topical DAILY 30 days artificial saliva (yerbas-lyt) (Mouth [place] [place]) 1 spray mucous membrane Q2H PRN 30 days benztropine 1 tab PO TID clonazepam 0.5 mg PO BID 30 days diphenhydramine HCl (Allergy Relief (diphenhydramine)) 50 mg (2 x 25 mg) PO DAILY PRN 30 days docusate sodium 100 mg PO BID duloxetine 120 mg (2 x 60 mg) PO DAILY gabapentin 800 mg (2 x 400 mg) PO TID 30 days ibuprofen 800 mg PO TID lidocaine 4% (Lidocaine Pain Relief) 2 patches See Protocol transdermal DAILY PRN 30 days nicotine (polacrilex) 2 mg buccal Q1H PRN 30 days omeprazole 40 mg PO DAILY@0630 30 days perphenazine 16 mg (2 x 8 mg) PO BID 30 days sennosides (senna) 17.2 mg (2 x 8.6 mg) PO DAILY tamsulosin 0.4 mg PO BEDTIME trazodone 50 mg PO BEDTIME PRN 30 days triamcinolone acetonide 0.1% 1 appl See Protocol topical DAILY 30 days Tobacco use date assessed: 04/06/23 Dental Screening Dental Screen Date: 04/06/23 Did you have a dental visit in the last 12 months?: Yes Did you have a dental problem in the last 6 months where you did not have access to dental care?: No Was dental information given to patient?: Patient has dentist HPI 3mth f/u HPI Details gerd and schizophrenia; sees psych; stable [facility] Medical History (Updated 04/06/23 @ 13:51 by Alberto Hernandez MD) Sandrita Opioid use disorder Psychosis Rash Right hemiparesis Schizophrenia Spinal cord lesion Substance abuse Surgical History History of liver biopsy Family History Father Medical history unknown Mother Medical history unknown Social History Household Members: Other Household Members Other:: Custodial Housing: Other Housing Other:: Custodial Do you presently have visiting nurse or other home services: No Unable to assess alcohol history related to: Refusing to respond Alcohol intake: former Patient Tobacco Use Status: Current everyday Tobacco user Tobacco use type: Cigarette Cigarette Packs Per Day: 1 Cigarettes Per Day: 20.0 e-Cigarette/Vaping Use: Former Use Second Hand Smoke Exposure: Yes Substance Use Type: Crack/Cocaine, Heroin and Marijuana service: No Current occupational status: disabled Sexual orientation: Did not discuss. Cognitive needs: No Hearing needs: No Vision needs: No Questionnaire PHQ-9 Over the last 2 weeks, how often have you been bothered by any of the following problems? 1. Little interest or pleasure in doing things: not at all 2. Feeling down, depressed, or hopeless: not at all 3. Trouble falling or staying asleep, or sleeping too much: not at all 4. Feeling tired or having little energy: not at all 5. Poor appetite or overeating: not at all 6. Feeling bad about yourself - or that you are a failure or have let yourself or your family down: not at all 7. Trouble concentrating on things, such as reading the newspaper or watching television: not at all 8. Moving or speaking so slowly that other people could have noticed. Or the opposite - being so fidgety or restless that you have been moving around a lot more than usual: not at all 9. Thoughts that you would be better off or of hurting yourself in some way: not at all Total score: 0 Depression Screening Interpretation: Negative 03414 - PHQ-9 Billing: Yes Source: Developed by Drs. Joseph Hillman, Irina Meadows, Darrel Gibson and colleagues, with an educational estevan from [employer]. Thrive Questionnaire Date Thrive assessed: 04/06/23 I am a: Patient What is your living situation today?: I have a steady place to live Within the past 12 months, did the food you bought not last and you didn't have the money to get more?: Never true Within the past 12 months, did you worry whether your food would run out before you got money to buy more?: Never true Do you have trouble paying for medicines?: No Do you have trouble getting transportation to medical appointments?: No Do you have trouble paying your heating and electricity bill?: No Do you have trouble taking care of your child, family member or friend?: No Do you have trouble with day-to-day activities such as bathing, preparing meals, shopping, managing finances, etc.?: No Are you currently unemployed and looking for a job?: No Are you interested in more education?: No Please select the resources that you would like help with: None Currently or been in a relationship where the following occur: no concerns reported AUDIT C Alcohol Use Questionnaire (AUDIT-C) 1. How often do you have a drink containing alcohol?: Never Total Score: 0 Score Reviewed/Action Taken: Yes IRA-7 AMB Questionnaire IRA-7 Date IRA - 7 assessed: 04/06/23 Feeling nervous, anxious, or on edge: 0 = Not at all Not being able to stop or control worryin = Not at all Worrying too much about different things: 0 = Not at all Trouble relaxin = Not at all Being so restless that it is hard to sit still: 0 = Not at all Becoming easily annoyed or irritable: 0 = Not at all Feeling afraid as if something awful might happen: 0 = Not at all Total IRA-7 score (0-4 normal; 5-9 mild; 10-14 moderate; 15-21 severe): 0 Source: Developed by Drs. Joseph Hillman, Irina Meadows, Darrel Gibson and colleagues, with an educational estevan from [employer]. IRA-7 Assessment Billing IRA-7 Assessment Tool: IRA-7 Assessment 08593 Review of Systems Const Denies chills, Denies headache(s) and Denies weight loss ENT Denies headache(s) Card Denies chest pain, Denies syncope, Denies irregular heart rhythm and Denies dyspnea Resp Denies chest congestion, Denies cough and Denies dyspnea GI Denies abdominal pain, Denies change in stool character, Denies nausea and Denies vomiting Musc Denies deformity and Denies joint swelling Neuro Denies syncope and Denies headache(s) Physical exam (Primary Care) Vital Signs: Last Vital Signs Pulse 80 04/06/23 13:36 BP 118/78 04/06/23 13:36 Pulse Ox 96 04/06/23 13:36 Oxygen Delivery Method Room Air 04/06/23 13:36 BMI result Body Mass Index 31.2 Tobacco/Smoking Status: Tobacco use Status Tobacco use date assessed 04/06/23 04/06/23 13:42 Patient Tobacco Use Status Current everyday Tobacco 04/06/23 13:42 Tobacco use type Cigarette 04/06/23 13:42 e-Cigarette/Vaping Use Former Use 04/06/23 13:42 Are you ready to quit: No Number of minutes spent counselin CPT code: 22174 - 4-10 Minutes PHQ-9: PHQ-9 Score PHQ-9: Total score 0 04/06/23 13:42 Depression Screening Interpretation: Negative Thrive Assessment: Date of Thrive Assessment Date Thrive assessed 04/06/23 04/06/23 13:42 Currently or been in a relationship where the following occur: no concerns reported Const General: cooperative and comfortable Resp Auscultation: clear to auscultation bilaterally Percussion: percussion normal Cardio Jugular venous distension: no JVD Rate: regular rate Rhythm: regular rhythm Assessment and Plan Assessment & Plan (1) Chronic GERD: Code(s): K21.9 - Gastro-esophageal reflux disease without esophagitis Plan: stable; same rx (2) Schizophrenia: Code(s): F20.9 - Schizophrenia, unspecified Qualifiers: Schizophrenia type: paranoid schizophrenia Qualified Code(s): F20.0 - Paranoid schizophrenia Plan: sees psych Coding Level of Care Code Est Pt Level 4 (29971) Diagnoses Chronic GERD K21.9 Schizophrenia F20.0 Schizophrenia type: paranoid schizophrenia Additional Codes IRA-7 Assessment Billing - IRA-7 Assessment Tool: IRA-7 Assessment 55176 ([id number]) Vital Signs *Quality* - CPT code: 58663 - 4-10 Minutes ([id number])
== END 2023-04-06 13:47 | disposition home or self-care (01) ==
PROVIDERS: Visit Provider Internal Medicine
DX: K21.9 Gastro-esophageal reflux disease without esophagitis (principal); F20.0 Paranoid schizophrenia
CPT/HCPCS: 99214

== ENCOUNTER 2023-07-09 13:21 | Outpatient (AMB) | payer MEDICARE, MEDICAID, SELFPAY ==
[2023-07-09 13:23] VITALS: BP 124/86; PULSE 86; O2SAT 97; BMI 32.1
--- NOTE | 2023-07-09 13:23 | A.OFFPC_ITS ---
Vital Signs 07/09/23 13:23 Height 5 ft 4 in Weight 187 lb BMI 32.1 BP 124/86 Blood Pressure Location Lt brachial Position Sitting Pulse 86 Pulse Source Pulse Oximeter Pulse Oximetry (%) 97 Oxygen Delivery Method Room Air Intake Visit Reasons: 3mth f/u Clip Bolter And Wrapper: Not Required per policy Accompanied by: Self / Same As Patient Allergies haloperidol [From HALDOL] Allergy (Intermediate, Verified 07/09/23 13:24) UNKNOWN Medication List - Last Reconciled 07/09/23 by Alberto Hernandez MD ammonium lactate 12% 1 appl topical DAILY 30 days artificial saliva (yerbas-lyt) (Mouth [place]) 1 spray mucous membrane Q2H PRN 30 days benztropine 1 tab PO TID clonazepam 0.5 mg PO BID 30 days diphenhydramine HCl (Allergy Relief (diphenhydramine)) 50 mg (2 x 25 mg) PO DAILY PRN 30 days docusate sodium 100 mg PO BID duloxetine 120 mg (2 x 60 mg) PO DAILY gabapentin 800 mg (2 x 400 mg) PO TID 30 days ibuprofen 800 mg PO TID lidocaine 4% (Lidocaine Pain Relief) 2 patches See Protocol transdermal DAILY PRN 30 days nicotine (polacrilex) 2 mg buccal Q1H PRN 30 days omeprazole 40 mg PO DAILY@0630 30 days perphenazine 16 mg (2 x 8 mg) PO BID 30 days sennosides (senna) 17.2 mg (2 x 8.6 mg) PO DAILY tamsulosin 0.4 mg PO BEDTIME trazodone 50 mg PO BEDTIME PRN 30 days triamcinolone acetonide 0.1% 1 appl See Protocol topical DAILY 30 days Tobacco use date assessed: 04/06/23 Dental Screening Dental Screen Date: 07/09/23 Did you have a dental visit in the last 12 months?: Yes Did you have a dental problem in the last 6 months where you did not have access to dental care?: No Was dental information given to patient?: Patient has dentist HPI 3mth f/u HPI Details GERD schizophrenia and cervical disc dis; stable on rx PFSH Medical History Opioid use disorder Rash Sandrita Spinal cord lesion Right hemiparesis Substance abuse Schizophrenia Psychosis Surgical History History of liver biopsy Family History Father Medical history unknown Mother Medical history unknown Social History Household Members: Other Household Members Other:: Care Home Housing: Other Housing Other:: Care Home Do you presently have visiting nurse or other home services: No Unable to assess alcohol history related to: Refusing to respond Alcohol intake: former Patient Tobacco Use Status: Current everyday Tobacco user Tobacco use type: Cigarette Cigarette Packs Per Day: 1 Cigarettes Per Day: 20.0 e-Cigarette/Vaping Use: Former Use Second Hand Smoke Exposure: Yes Substance Use Type: Crack/Cocaine, Heroin and Marijuana service: No Current occupational status: disabled Sexual orientation: Did not discuss. Cognitive needs: No Hearing needs: No Vision needs: No Questionnaire PHQ-9 Over the last 2 weeks, how often have you been bothered by any of the following problems? 1. Little interest or pleasure in doing things: not at all 2. Feeling down, depressed, or hopeless: not at all 3. Trouble falling or staying asleep, or sleeping too much: not at all 4. Feeling tired or having little energy: not at all 5. Poor appetite or overeating: not at all 6. Feeling bad about yourself - or that you are a failure or have let yourself or your family down: not at all 7. Trouble concentrating on things, such as reading the newspaper or watching television: not at all 8. Moving or speaking so slowly that other people could have noticed. Or the opposite - being so fidgety or restless that you have been moving around a lot more than usual: not at all 9. Thoughts that you would be better off or of hurting yourself in some way: not at all Total score: 0 Depression Screening Interpretation: Negative Depression Screening Done: Yes 86260 - PHQ-9 Billing: Yes Source: Developed by Drs. Joseph Hillman, Irina Meadows, Darrel Gibson and colleagues, with an educational estevan from [employer] Thrive Questionnaire Date Thrive assessed: 04/06/23 AUDIT C Alcohol Use Questionnaire (AUDIT-C) 1. How often do you have a drink containing alcohol?: Never Total Score: 0 Score Reviewed/Action Taken: Yes IRA-7 AMB Questionnaire IRA-7 Date IRA - 7 assessed: 04/06/23 Source: Developed by Drs. Joseph Hillman, Irina Meadows, Darrel Gibson and colleagues, with an educational estevan from [employer] Review of Systems Const Denies chills, Denies headache(s) and Denies weight loss ENT Denies headache(s) Card Denies chest pain, Denies syncope, Denies irregular heart rhythm and Denies dyspnea Resp Denies chest congestion, Denies cough and Denies dyspnea GI Denies abdominal pain, Denies change in stool character, Denies nausea and Denies vomiting Musc Denies deformity and Denies joint swelling Neuro Denies syncope and Denies headache(s) Physical exam (Primary Care) Vital Signs: Last Vital Signs Pulse 86 07/09/23 13:23 BP 124/86 07/09/23 13:23 Pulse Ox 97 07/09/23 13:23 Oxygen Delivery Method Room Air 07/09/23 13:23 BMI result Body Mass Index 32.1 Tobacco/Smoking Status: Tobacco use Status Tobacco use date assessed 04/06/23 07/09/23 13:26 Patient Tobacco Use Status Current everyday Tobacco 07/09/23 13:26 Tobacco use type Cigarette 07/09/23 13:26 e-Cigarette/Vaping Use Former Use 07/09/23 13:26 PHQ-9: PHQ-9 Score PHQ-9: Total score 0 07/09/23 13:26 Depression Screening Interpretation: Negative Thrive Assessment: Date of Thrive Assessment Date Thrive assessed 04/06/23 07/09/23 13:26 Const General: cooperative, comfortable, no acute distress and alert Neck Neck: Yes no lymphadenopathy Thyroid: Thyroid normal Resp Effort & Inspection: normal respiratory effort Auscultation: clear to auscultation bilaterally Percussion: percussion normal Cardio Jugular venous distension: no JVD Palpation: normal PMI Rate: regular rate Rhythm: regular rhythm Heart sounds: S1 normal heart sound present and S2 normal heart sound present GI Inspection: Yes normal to inspection Palpation (GI): No hepatosplenomegaly present Skin General skin exam: no rashes or lesions noted Extrem General: Yes no clubbing, cyanosis or edema Assessment and Plan Assessment & Plan (1) Chronic GERD: Code(s): K21.9 - Gastro-esophageal reflux disease without esophagitis Plan: stable; same rx (2) Cervical spine disease: Code(s): M48.9 - Spondylopathy, unspecified Plan: stable; same rx (3) Schizophrenia: Code(s): F20.9 - Schizophrenia, unspecified Qualifiers: Schizophrenia type: paranoid schizophrenia Qualified Code(s): F20.0 - Paranoid schizophrenia Plan: as per psych Coding Level of Care Code Est Pt Level 4 (05467) Diagnoses Chronic GERD K21.9 Cervical spine disease M48.9 Paranoid schizophrenia F20.0 Schizophrenia type: paranoid schizophrenia
== END 2023-07-09 13:38 | disposition home or self-care (01) ==
PROVIDERS: PCP Internal Medicine; Visit Provider Internal Medicine
DX: K21.9 Gastro-esophageal reflux disease without esophagitis (principal); M48.9 Spondylopathy, unspecified; F20.0 Paranoid schizophrenia
CPT/HCPCS: 99214

== ENCOUNTER 2023-10-03 13:34 | Outpatient (AMB) | payer MEDICARE, MEDICAID, SELFPAY ==
[2023-10-03 13:35] VITALS: BP 144/82; PULSE 80; O2SAT 100; BMI 32.3
--- NOTE | 2023-10-03 13:35 | A.OFFPC_ITS ---
Vital Signs 10/03/23 13:35 Height 5 ft 4 in Weight 188 lb BMI 32.3 BP 144/82 H Blood Pressure Location Lt brachial Position Sitting Pulse 80 Pulse Source Pulse Oximeter Pulse Oximetry (%) 100 Oxygen Delivery Method Room Air Intake Visit Reasons: follow up Home Theatre Technician Required: No Director Of In Service Education: Not Required per policy Accompanied by: Self / Same As Patient Allergies haloperidol [From HALDOL] Allergy (Intermediate, Verified 10/03/23 13:36) UNKNOWN Medication List - Last Reconciled 10/03/23 by Alberto Hernandez MD ammonium lactate 12% 1 appl topical DAILY 30 days artificial saliva (yerbas-lyt) (Mouth [place] [place]) 1 spray mucous membrane Q2H PRN 30 days benztropine 1 tab PO TID clonazepam 0.5 mg PO BID 30 days diphenhydramine HCl (Allergy Relief (diphenhydramine)) 50 mg (2 x 25 mg) PO DAILY PRN 30 days docusate sodium 100 mg PO BID duloxetine 120 mg (2 x 60 mg) PO DAILY gabapentin 800 mg (2 x 400 mg) PO TID 30 days ibuprofen 800 mg PO TID lidocaine 4% (Lidocaine Pain Relief) 2 patches See Protocol transdermal DAILY PRN 30 days nicotine (polacrilex) 2 mg buccal Q1H PRN 30 days omeprazole 40 mg PO DAILY@0630 30 days perphenazine 16 mg (2 x 8 mg) PO BID 30 days sennosides (senna) 17.2 mg (2 x 8.6 mg) PO DAILY tamsulosin 0.4 mg PO BEDTIME trazodone 50 mg PO BEDTIME PRN 30 days triamcinolone acetonide 0.1% 1 appl See Protocol topical DAILY 30 days Tobacco use date assessed: 10/03/23 Dental Screening Dental Screen Date: 10/03/23 Did you have a dental visit in the last 12 months?: Yes Did you have a dental problem in the last 6 months where you did not have access to dental care?: No Was dental information given to patient?: Patient has dentist HPI follow up HPI Details schizophrenia and sees psych; stable; compliant [facility] Medical History Opioid use disorder Rash Sandrita Spinal cord lesion Right hemiparesis Substance abuse Schizophrenia Psychosis Surgical History History of liver biopsy Family History Father Medical history unknown Mother Medical history unknown Social History Household Members: Other Household Members Other:: Shelter Housing: Other Housing Other:: Shelter Do you presently have visiting nurse or other home services: No Unable to assess alcohol history related to: Refusing to respond Alcohol intake: former Comment: on ob status Patient Tobacco Use Status: Current everyday Tobacco user Tobacco use type: Cigarette Cigarette Packs Per Day: 1 Cigarettes Per Day: 20.0 e-Cigarette/Vaping Use: Former Use Second Hand Smoke Exposure: Yes Substance Use Type: Crack/Cocaine, Heroin and Marijuana service: No Current occupational status: disabled Sexual orientation: Did not discuss. Cognitive needs: No Hearing needs: No Vision needs: No Questionnaire PHQ-9 Over the last 2 weeks, how often have you been bothered by any of the following problems? 1. Little interest or pleasure in doing things: not at all 2. Feeling down, depressed, or hopeless: not at all 3. Trouble falling or staying asleep, or sleeping too much: not at all 4. Feeling tired or having little energy: not at all 5. Poor appetite or overeating: not at all 6. Feeling bad about yourself - or that you are a failure or have let yourself or your family down: not at all 7. Trouble concentrating on things, such as reading the newspaper or watching television: not at all 8. Moving or speaking so slowly that other people could have noticed. Or the opposite - being so fidgety or restless that you have been moving around a lot more than usual: not at all 9. Thoughts that you would be better off or of hurting yourself in some way: not at all Total score: 0 Depression Screening Interpretation: Negative Depression Screening Done: Yes 29247 - PHQ-9 Billing: Yes Source: Developed by Drs. Joseph Hillman, Irina Meadows, Darrel Gibson and colleagues, with an educational estevan from [employer]. Thrive Questionnaire Date Thrive assessed: 10/03/23 I am a: Patient What is your living situation today?: I have a steady place to live Within the past 12 months, did the food you bought not last and you didn't have the money to get more?: Never true Within the past 12 months, did you worry whether your food would run out before you got money to buy more?: Never true Do you have trouble paying for medicines?: No Do you have trouble getting transportation to medical appointments?: No Do you have trouble paying your heating and electricity bill?: No Do you have trouble taking care of your child, family member or friend?: No Do you have trouble with day-to-day activities such as bathing, preparing meals, shopping, managing finances, etc.?: No Are you currently unemployed and looking for a job?: No Are you interested in more education?: No Please select the resources that you would like help with: None AUDIT C Alcohol Use Questionnaire (AUDIT-C) 1. How often do you have a drink containing alcohol?: Never Total Score: 0 Score Reviewed/Action Taken: Yes IRA-7 AMB Questionnaire IRA-7 Date IRA - 7 assessed: 10/03/23 Feeling nervous, anxious, or on edge: 2 = More than half the days Not being able to stop or control worryin = More than half the days Worrying too much about different things: 2 = More than half the days Trouble relaxin = Not at all Being so restless that it is hard to sit still: 0 = Not at all Becoming easily annoyed or irritable: 0 = Not at all Feeling afraid as if something awful might happen: 0 = Not at all Total IRA-7 score (0-4 normal; 5-9 mild; 10-14 moderate; 15-21 severe): 6 Source: Developed by Drs. Joseph Hillman, Irina Meadows, Darrel Gibson and colleagues, with an educational estevan from [employer]. Review of Systems Const Denies chills, Denies headache(s) and Denies weight loss ENT Denies headache(s) Card Denies chest pain, Denies syncope, Denies irregular heart rhythm and Denies dyspnea Resp Denies chest congestion, Denies cough and Denies dyspnea GI Denies abdominal pain, Denies change in stool character, Denies nausea and Denies vomiting Musc Denies deformity and Denies joint swelling Neuro Denies syncope and Denies headache(s) Physical exam (Primary Care) Vital Signs: Last Vital Signs Pulse 80 10/03/23 13:35 BP 144/82 H 10/03/23 13:35 Pulse Ox 100 10/03/23 13:35 Oxygen Delivery Method Room Air 10/03/23 13:35 BMI result Body Mass Index 32.3 Tobacco/Smoking Status: Tobacco use Status Tobacco use date assessed 10/03/23 10/03/23 13:41 Patient Tobacco Use Status Current everyday Tobacco 10/03/23 13:41 Tobacco use type Cigarette 10/03/23 13:41 e-Cigarette/Vaping Use Former Use 10/03/23 13:41 PHQ-9: PHQ-9 Score PHQ-9: Total score 0 10/03/23 13:41 Depression Screening Interpretation: Negative Thrive Assessment: Date of Thrive Assessment Date Thrive assessed 10/03/23 10/03/23 13:41 Const General: cooperative, comfortable, no acute distress and alert Neck Neck: Yes no lymphadenopathy Thyroid: Thyroid normal Resp Effort & Inspection: normal respiratory effort Auscultation: clear to auscultation bilaterally Percussion: percussion normal Cardio Jugular venous distension: no JVD Palpation: normal PMI Rate: regular rate Rhythm: regular rhythm Heart sounds: S1 normal heart sound present and S2 normal heart sound present GI Inspection: Yes normal to inspection Palpation (GI): No hepatosplenomegaly present Skin General skin exam: no rashes or lesions noted Extrem General: Yes no clubbing, cyanosis or edema Assessment and Plan Assessment & Plan (1) Schizophrenia: Code(s): F20.9 - Schizophrenia, unspecified Qualifiers: Schizophrenia type: paranoid schizophrenia Qualified Code(s): F20.0 - Paranoid schizophrenia Plan: do labs; f/u with psych Orders: Orders Lipid Panel Today E78.5 - Hyperlipidemia, unspecified Complete Blood Count Auto Diff Today D64.9 - Anemia, unspecified Thyroid Stimulating Hormone Today E03.9 - Hypothyroidism, unspecified Comprehensive [place]. Panel Fast Today N28.9 - Disorder of kidney and ureter, unspecified Coding Level of Care Code Est Pt Level 3 (08078) Diagnoses Paranoid schizophrenia F20.0 Schizophrenia type: paranoid schizophrenia
== END 2023-10-03 13:54 | disposition home or self-care (01) ==
PROVIDERS: PCP Internal Medicine; Visit Provider Internal Medicine
DX: F20.0 Paranoid schizophrenia (principal)
CPT/HCPCS: 99213

== ENCOUNTER 2024-01-03 13:34 | Outpatient (AMB) | payer MEDICARE, MEDICAID, SELFPAY ==
[2024-01-03 13:35] VITALS: BP 132/80; PULSE 74; O2SAT 98; BMI 31.9
--- NOTE | 2024-01-03 13:35 | MHC.PC.OV ---
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 Accompanied by: Self / Same As Patient Allergies haloperidol [From HALDOL] Allergy (Intermediate, Verified 01/03/24 13:36) UNKNOWN Medication List - Last Reconciled 01/04/24 by Alberto Hernandez MD ammonium lactate 12% 1 appl topical DAILY 30 days artificial saliva (yerbas-lyt) (Mouth [place]) 1 spray mucous membrane Q2H PRN 30 days benztropine 1 tab PO TID clonazepam 0.5 mg PO BID 30 days diphenhydramine HCl (Allergy Relief (diphenhydramine)) 50 mg (2 x 25 mg) PO DAILY PRN 30 days docusate sodium 100 mg PO BID duloxetine 120 mg (2 x 60 mg) PO DAILY gabapentin 800 mg (2 x 400 mg) PO TID 30 days ibuprofen 800 mg PO TID lidocaine 4% (Lidocaine Pain Relief) 2 patches See Protocol transdermal DAILY PRN 30 days nicotine (polacrilex) 2 mg buccal Q1H PRN 30 days omeprazole 40 mg PO DAILY@0630 30 days perphenazine 16 mg (2 x 8 mg) PO BID 30 days sennosides (senna) 17.2 mg (2 x 8.6 mg) PO DAILY tamsulosin 0.4 mg PO BEDTIME trazodone 50 mg PO BEDTIME PRN 30 days triamcinolone acetonide 0.1% 1 appl See Protocol topical DAILY 30 days Tobacco use date assessed: 01/03/24 Dental Screening Dental Screen Date: 10/03/23 HPI 3 month f/u HPI Details schizophrenia; sees psych and doing well; no recent hosp PFSH Medical History Opioid use disorder Rash Sandrita Spinal cord lesion Right hemiparesis Substance abuse Schizophrenia Psychosis Surgical History History of liver biopsy Family History Father Medical history unknown Mother Medical history unknown Social History Household Members: Other Household Members Other:: Detention Housing: Other Housing Other:: Detention Do you presently have visiting nurse or other home services: No Unable to assess alcohol history related to: Refusing to respond Alcohol intake: former Comment: on ob status Patient Tobacco Use Status: Current everyday Tobacco user Tobacco use type: Cigarette Cigarette Packs Per Day: 1 Cigarettes Per Day: 20.0 e-Cigarette/Vaping Use: Former Use Second Hand Smoke Exposure: Yes Substance Use Type: Crack/Cocaine, Heroin and Marijuana service: No Current occupational status: disabled Sexual orientation: Did not discuss. Cognitive needs: No Hearing needs: No Vision needs: No Questionnaire Thrive Questionnaire Date Thrive assessed: 10/03/23 AUDIT C Alcohol Use Questionnaire (AUDIT-C) 1. How often do you have a drink containing alcohol?: Never Total Score: 0 Score Reviewed/Action Taken: Yes IRA-7 AMB Questionnaire IRA-7 Date IRA - 7 assessed: 10/03/23 Source: Developed by Drs. Joseph Hillman, Irina Meadows, Darrel Gibson and colleagues, with an educational estevan from [employer]. Review of Systems Const Denies chills, Denies fatigue, Denies headache(s) and Denies weight loss Eyes Denies change in vision, Denies diplopia and Denies eye pain ENT Denies vertigo, Denies dizziness, Denies headache(s) and Denies nasal discharge Card Denies chest pain, Denies rapid heart rate and Denies dyspnea on exertion Resp Denies chest congestion, Denies cough, Denies pain with cough and Denies dyspnea on exertion GI Denies abdominal pain, Denies hematochezia and Denies change in bowel habits Musc Denies myalgias, Denies arthralgias and Denies joint swelling Skin/Breast Denies lesions and Denies unusual bruising Neuro Denies vertigo, Denies dizziness, Denies headache(s) and Denies focal weakness Endo Denies fatigue Physical exam (Primary Care) Vital Signs: Last Vital Signs Pulse 74 01/03/24 13:35 BP 132/80 01/03/24 13:35 Pulse Ox 98 01/03/24 13:35 Oxygen Delivery Method Room Air 01/03/24 13:35 BMI result Body Mass Index 31.9 Tobacco/Smoking Status: Tobacco use Status Tobacco use date assessed 01/03/24 01/03/24 13:40 Patient Tobacco Use Status Current everyday Tobacco 01/03/24 13:35 Tobacco use type Cigarette 01/03/24 13:35 e-Cigarette/Vaping Use Former Use 01/03/24 13:35 Thrive Assessment: Date of Thrive Assessment Date Thrive assessed 10/03/23 01/03/24 13:35 Const General: cooperative, healthy appearing and no acute distress Orientation/consciousness: oriented to person, oriented to place and oriented to time HENMT Head: Yes normal to inspection, Yes normocephalic and Yes atraumatic Mouth: Normal oral and palatal mucosa present and tongue normal Throat: Yes posterior oropharynx normal and Yes uvula midline Eyes General: appearance normal, both eyes and all related structures Neck Neck: Yes normal visual inspection, Yes full ROM and Yes no lymphadenopathy Thyroid: Thyroid normal Carotids: normal carotid upstroke Chest Chest palpation & inspection: normal inspection of the chest Resp Effort & Inspection: normal respiratory effort and able to speak in complete sentences Auscultation: clear to auscultation bilaterally Cardio Jugular venous distension: no JVD Palpation: normal PMI Rate: regular rate Rhythm: regular rhythm Heart sounds: S1 normal heart sound present and S2 normal heart sound present GI Inspection: Yes normal to inspection Palpation (GI): Soft to palpation and No hepatosplenomegaly present Auscultation: normal bowel sounds General: Yes no CVA tenderness Back/Spine/Pelvis Back: no CVA tenderness Skin General skin exam: no rashes or lesions noted Neuro General: oriented to person, oriented to place and oriented to time Extrem General: Yes normal to inspection and Yes full ROM Assessment and Plan Assessment & Plan (1) Physical exam: Code(s): Z00.00 - Encounter for general adult medical examination without abnormal findings Plan: stable; do labs (2) Schizophrenia: Code(s): F20.9 - Schizophrenia, unspecified Qualifiers: Schizophrenia type: paranoid schizophrenia Qualified Code(s): F20.0 - Paranoid schizophrenia Plan: stable; per psych Coding Level of Care Code Est Pt Prev Care 40-64y(37276) Diagnoses Physical exam Z00.00 Paranoid schizophrenia F20.0 Schizophrenia type: paranoid schizophrenia
== END 2024-01-03 13:53 | disposition home or self-care (01) ==
PROVIDERS: PCP Internal Medicine; Visit Provider Internal Medicine
DX: Z00.00 Encounter for general adult medical examination without abnormal findings (principal); F20.0 Paranoid schizophrenia
CPT/HCPCS: 99396

== ENCOUNTER 2024-04-07 13:25 | Outpatient (AMB) | payer MEDICARE, MEDICAID, SELFPAY ==
[2024-04-07 13:30] VITALS: BP 122/70; PULSE 80; O2SAT 95; BMI 31.1
--- NOTE | 2024-04-07 13:30 | A.OFFPC_ITS ---
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 Allergies haloperidol [From HALDOL] Allergy (Intermediate, Verified 04/07/24 13:31) UNKNOWN Medication List - Last Reconciled 04/07/24 by Alberto Hernandez MD ammonium lactate 12% 1 appl topical DAILY 30 days artificial saliva (yerbas-lyt) ([place]) 1 spray mucous membrane Q2H PRN 30 days benztropine 1 tab PO TID clonazepam 0.5 mg PO BID 30 days diphenhydramine HCl (Allergy Relief (diphenhydramine)) 50 mg (2 x 25 mg) PO DAILY PRN 30 days docusate sodium 100 mg PO BID duloxetine 120 mg (2 x 60 mg) PO DAILY gabapentin 800 mg (2 x 400 mg) PO TID 30 days ibuprofen 800 mg PO TID lidocaine 4% (Lidocaine Pain Relief) 2 patches See Protocol transdermal DAILY PRN 30 days nicotine (polacrilex) 2 mg buccal Q1H PRN 30 days omeprazole 40 mg PO DAILY@0630 30 days perphenazine 16 mg (2 x 8 mg) PO BID 30 days sennosides (senna) 17.2 mg (2 x 8.6 mg) PO DAILY tamsulosin 0.4 mg PO BEDTIME trazodone 50 mg PO BEDTIME PRN 30 days triamcinolone acetonide 0.1% 1 appl See Protocol topical DAILY 30 days Tobacco use date assessed: 01/03/24 Dental Screening Dental Screen Date: 10/03/23 HPI 3MOF\U HPI Details injured middle finger of right hand a week ago PFSH Medical History Opioid use disorder Rash Sandrita Spinal cord lesion Right hemiparesis Substance abuse Schizophrenia Psychosis Surgical History History of liver biopsy Family History Father Medical history unknown Mother Medical history unknown Social History Household Members: Other Household Members Other:: Skilled Nursing Housing: Other Housing Other:: Skilled Nursing Do you presently have visiting nurse or other home services: No Unable to assess alcohol history related to: Refusing to respond Alcohol intake: former Comment: on ob status Patient Tobacco Use Status: Current everyday Tobacco user Tobacco use type: Cigarette Cigarette Packs Per Day: 1 Cigarettes Per Day: 20.0 e-Cigarette/Vaping Use: Former Use Second Hand Smoke Exposure: Yes Substance Use Type: Crack/Cocaine, Heroin and Marijuana service: No Current occupational status: disabled Sexual orientation: Did not discuss. Cognitive needs: No Hearing needs: No Vision needs: No Questionnaire Thrive Questionnaire Date Thrive assessed: 10/03/23 IRA-7 AMB Questionnaire IRA-7 Date IRA - 7 assessed: 10/03/23 Source: Developed by Drs. Joseph Hillman, Irina Meadows, Darrel Gibson and colleagues, with an educational estevan from [employer]. Review of Systems Const Denies chills, Denies headache(s) and Denies weight loss ENT Denies headache(s) Card Denies chest pain, Denies syncope, Denies irregular heart rhythm and Denies dyspnea Resp Denies chest congestion, Denies cough and Denies dyspnea GI Denies abdominal pain, Denies change in stool character, Denies nausea and Denies vomiting Musc Denies deformity and Denies joint swelling Neuro Denies syncope and Denies headache(s) Physical exam (Primary Care) Vital Signs: Last Vital Signs Pulse 80 04/07/24 13:30 BP 122/70 04/07/24 13:30 Pulse Ox 95 04/07/24 13:30 Oxygen Delivery Method Room Air 04/07/24 13:30 BMI result Body Mass Index 31.1 Tobacco/Smoking Status: Tobacco use Status Tobacco use date assessed 01/03/24 04/07/24 13:31 Patient Tobacco Use Status Current everyday Tobacco 04/07/24 13:31 Tobacco use type Cigarette 04/07/24 13:31 e-Cigarette/Vaping Use Former Use 04/07/24 13:31 Thrive Assessment: Date of Thrive Assessment Date Thrive assessed 10/03/23 04/07/24 13:31 Const General: cooperative, comfortable, no acute distress and alert Neck Neck: Yes no lymphadenopathy Thyroid: Thyroid normal Resp Effort & Inspection: normal respiratory effort Auscultation: clear to auscultation bilaterally Percussion: percussion normal Cardio Jugular venous distension: no JVD Palpation: normal PMI Rate: regular rate Rhythm: regular rhythm Heart sounds: S1 normal heart sound present and S2 normal heart sound present GI Inspection: Yes normal to inspection Palpation (GI): No hepatosplenomegaly present Skin General skin exam: no rashes or lesions noted Extrem General: Yes no clubbing, cyanosis or edema Assessment and Plan Assessment & Plan (1) Injury of finger of right hand: Code(s): S69.91XA - Unspecified injury of right wrist, hand and finger(s), initial encounter Orders: Orders XR hand RT 2V Today M79.643 - Pain in unspecified hand Coding Level of Care Code Est Pt Level 3 (30023) Diagnoses Injury of finger of right hand S69.91XA
== END 2024-04-07 13:50 | disposition home or self-care (01) ==
PROVIDERS: PCP Internal Medicine; Visit Provider Internal Medicine
DX: S69.91XA Unspecified injury of right wrist, hand and finger(s), initial encounter (principal)
CPT/HCPCS: 99213

== ENCOUNTER 2024-04-08 11:30 | Outpatient (REF) | payer MEDICARE, MEDICAID, SELFPAY ==
--- NOTE | ~2024-04-08 | XR_ITS ---
EXAMINATION: XR HAND, RIGHT CLINICAL INFORMATION: Pain COMPARISON: None available. TECHNIQUE: PA, lateral, and oblique views of the right hand. FINDINGS: Moderately displaced fracture along the dorsal base cortex of the third distal phalanx with approximately 3 mm displacement. Overlying soft tissue swelling. No acute visible dislocation. Negative ulnar variance. Joint space alignment otherwise maintained. XR/XR hand RT min 3V IMPRESSION: 1. Moderately displaced fracture along the dorsal base cortex of the third distal phalanx with approximately 3 mm displacement. 2. Overlying soft tissue swelling. 3. No acute visible dislocation. 4. Negative ulnar variance.
== END 2024-04-08 11:31 | disposition home or self-care (01) ==
LOC: HO.XRAY 11:30
PROVIDERS: PCP Internal Medicine; Visit Provider Internal Medicine
DX: M79.641 Pain in right hand (principal)
CPT/HCPCS: 73130

== ENCOUNTER 2024-04-29 08:53 | Outpatient (REF) | payer MEDICARE, MEDICAID, SELFPAY | END 2024-04-29 08:54 | disposition home or self-care (01) | LOC: HO.HOSX 08:53 | DX: Z13.89 Encounter for screening for other disorder (principal) ==

== ENCOUNTER 2024-07-09 11:43 | Outpatient (AMB) | payer MEDICARE, MEDICAID, SELFPAY ==
--- NOTE | 2024-07-09 11:44 | MHC.PC.OV ---
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 Accompanied by: Self / Same As Patient Allergies haloperidol [From HALDOL] Allergy (Intermediate, Verified 07/09/24 11:45) UNKNOWN Medication List - Last Reconciled 07/09/24 by Alberto Hernandez MD ammonium lactate 12% 1 appl topical DAILY 30 days artificial saliva (yerbas-lyt) ([place]) 1 spray mucous membrane Q2H PRN 30 days benztropine 1 tab PO TID clonazepam 0.5 mg PO BID 30 days diphenhydramine HCl (Allergy Relief (diphenhydramine)) 50 mg (2 x 25 mg) PO DAILY PRN 30 days docusate sodium 100 mg PO BID duloxetine 120 mg (2 x 60 mg) PO DAILY gabapentin 800 mg (2 x 400 mg) PO TID 30 days ibuprofen 800 mg PO TID lidocaine 4% (Lidocaine Pain Relief) 2 patches See Protocol transdermal DAILY PRN 30 days nicotine (polacrilex) 2 mg buccal Q1H PRN 30 days omeprazole 40 mg PO DAILY@0630 30 days perphenazine 16 mg (2 x 8 mg) PO BID 30 days sennosides (senna) 17.2 mg (2 x 8.6 mg) PO DAILY tamsulosin 0.4 mg PO BEDTIME trazodone 50 mg PO BEDTIME PRN 30 days triamcinolone acetonide 0.1% 1 appl See Protocol topical DAILY 30 days Tobacco use date assessed: 07/09/24 Dental Screening Dental Screen Date: 07/09/24 HPI 3mth f/u HPI Details schizophrenia; sees psych and stable at present PFSH Medical History Opioid use disorder Rash Sandrita Spinal cord lesion Right hemiparesis Substance abuse Schizophrenia Psychosis Surgical History History of liver biopsy Family History Father Medical history unknown Mother Medical history unknown Social History Household Members: Other Household Members Other:: [facility] Housing: Other Housing Other:: [facility] Do you presently have visiting nurse or other home services: No Unable to assess alcohol history related to: Refusing to respond Alcohol intake: former Comment: on ob status Patient Tobacco Use Status: Current everyday Tobacco user Tobacco use type: Cigarette Cigarette Packs Per Day: 1 Cigarettes Per Day: 20.0 e-Cigarette/Vaping Use: Former Use Second Hand Smoke Exposure: Yes Substance Use Type: Crack/Cocaine, Heroin and Marijuana service: No Current occupational status: disabled Sexual orientation: Did not discuss. Cognitive needs: No Hearing needs: No Vision needs: No Questionnaire Thrive Questionnaire Date Thrive assessed: 10/03/23 AUDIT C Alcohol Use Questionnaire (AUDIT-C) 1. How often do you have a drink containing alcohol?: Never Total Score: 0 Score Reviewed/Action Taken: Yes IRA-7 AMB Questionnaire IRA-7 Date IRA - 7 assessed: 10/03/23 Source: Developed by Drs. Joseph Hillman, Irina Meadows, Darrel Gibson and colleagues, with an educational estevan from [employer]. Review of Systems Const Denies chills, Denies headache(s) and Denies weight loss ENT Denies headache(s) Card Denies chest pain, Denies syncope, Denies irregular heart rhythm and Denies dyspnea Resp Denies chest congestion, Denies cough and Denies dyspnea GI Denies abdominal pain, Denies change in stool character, Denies nausea and Denies vomiting Musc Denies deformity and Denies joint swelling Neuro Denies syncope and Denies headache(s) Physical exam (Primary Care) Vital Signs: Last Vital Signs Pulse 59 07/09/24 11:45 BP 110/74 07/09/24 11:45 Pulse Ox 97 07/09/24 11:45 Oxygen Delivery Method Room Air 07/09/24 11:45 BMI result Body Mass Index 31.9 Tobacco/Smoking Status: Tobacco use Status Tobacco use date assessed 07/09/24 07/09/24 11:46 Patient Tobacco Use Status Current everyday Tobacco 07/09/24 11:44 Tobacco use type Cigarette 07/09/24 11:44 e-Cigarette/Vaping Use Former Use 07/09/24 11:44 Thrive Assessment: Date of Thrive Assessment Date Thrive assessed 10/03/23 07/09/24 11:44 Const General: cooperative, comfortable, no acute distress and alert Neck Neck: Yes no lymphadenopathy Thyroid: Thyroid normal Resp Effort & Inspection: normal respiratory effort Auscultation: clear to auscultation bilaterally Percussion: percussion normal Cardio Jugular venous distension: no JVD Palpation: normal PMI Rate: regular rate Rhythm: regular rhythm Heart sounds: S1 normal heart sound present and S2 normal heart sound present GI Inspection: Yes normal to inspection Palpation (GI): No hepatosplenomegaly present Skin General skin exam: no rashes or lesions noted Extrem General: Yes no clubbing, cyanosis or edema Coding Level of Care Code Est Pt Level 3 (66957) Diagnoses Paranoid schizophrenia F20.0 Schizophrenia type: paranoid schizophrenia Assessment & Plan Assessment & Plan (1) Schizophrenia: Code(s): F20.9 - Schizophrenia, unspecified Category: Medical Qualifiers: Schizophrenia type: paranoid schizophrenia Qualified Code(s): F20.0 - Paranoid schizophrenia Plan: stable; as per psych Orders: Orders Complete Blood Count Auto Diff Today Z13.0 - Encounter for screening for diseases of the blood and blood-forming organs and certain disorders involving the immune mechanism Comprehensive [place]aring. Panel Fast Today Z13.9 - Encounter for screening, unspecified Lipid Panel Today Z13.220 - Encounter for screening for lipoid disorders Thyroid Stimulating Hormone Today Z13.29 - Encounter for screening for other suspected endocrine disorder
[2024-07-09 11:45] VITALS: BP 110/74; PULSE 59; O2SAT 97; BMI 31.9
== END 2024-07-09 12:05 | disposition home or self-care (01) ==
PROVIDERS: PCP Internal Medicine; Visit Provider Internal Medicine
DX: F20.0 Paranoid schizophrenia (principal)

== ENCOUNTER → 2024-07-09 11:43 | Outpatient (BNVA) | payer MEDICARE, MEDICAID, SELFPAY | PROVIDERS: PCP Internal Medicine; Visit Provider Internal Medicine | DX: F20.0 Paranoid schizophrenia (principal) | CPT/HCPCS: 99212 ==

== ENCOUNTER 2024-10-13 14:26 | Outpatient (AMB) | payer MEDICARE, MEDICAID, SELFPAY ==
[2024-10-13 14:30] VITALS: BP 136/86; PULSE 80; O2SAT 97; BMI 28.8
--- NOTE | 2024-10-13 14:30 | MHC.PC.OV ---
Vital Signs 10/13/24 14:30 Height 5 ft 4 in Weight 168 lb BMI 28.8 BP 136/86 Blood Pressure Location Lt brachial Position Sitting Pulse 80 Pulse Source Pulse Oximeter Pulse Oximetry (%) 97 Oxygen Delivery Method Room Air Intake Visit Reasons: PE Household Coordinator Required: No Accompanied by: Self / Same As Patient Allergies haloperidol [From HALDOL] Allergy (Intermediate, Verified 10/13/24 14:32) UNKNOWN Medication List - Last Reconciled 10/14/24 by Alberto Hernandez MD ammonium lactate 12% 1 appl topical DAILY 30 days artificial saliva (yerbas-lyt) (Mouth[place]) 1 spray mucous membrane Q2H PRN 30 days benztropine mg PO DAILY cephalexin 250 mg PO Q6H clonazepam 0.5 mg PO BID 30 days diphenhydramine HCl (Allergy Relief (diphenhydramine)) 50 mg (2 x 25 mg) PO DAILY PRN 30 days docusate sodium 100 mg PO BID duloxetine 120 mg (2 x 60 mg) PO DAILY gabapentin 800 mg (2 x 400 mg) PO TID 30 days ibuprofen 800 mg PO TID lidocaine 4% (Lidocaine Pain Relief) 2 patches See Protocol transdermal DAILY PRN 30 days nicotine (polacrilex) 2 mg buccal Q1H PRN 30 days omeprazole 40 mg PO DAILY@0630 30 days perphenazine 16 mg (2 x 8 mg) PO BID 30 days sennosides (senna) 17.2 mg (2 x 8.6 mg) PO DAILY tamsulosin 0.4 mg PO BEDTIME trazodone 50 mg PO BEDTIME PRN 30 days triamcinolone acetonide 0.1% 1 appl See Protocol topical DAILY 30 days Tobacco use date assessed: 10/13/24 Dental Screening Dental Screen Date: 10/13/24 Did you have a dental visit in the last 12 months?: Yes Did you have a dental problem in the last 6 months where you did not have access to dental care?: No Was dental information given to patient?: Patient has dentist HPI PE HPI Details schizophrenia; on rx and sees psych; stable and compliant COUNT INCLUDES THE [facility] Medical History Opioid use disorder Rash Sandrita Spinal cord lesion Right hemiparesis Substance abuse Schizophrenia Psychosis Surgical History History of liver biopsy Family History Father Medical history unknown Mother Medical history unknown Social History Household Members: Other Household Members Other:: Senior Living Housing: Other Housing Other:: Senior Living Do you presently have visiting nurse or other home services: No Unable to assess alcohol history related to: Refusing to respond Alcohol intake: former Comment: on ob status Patient Tobacco Use Status: Current everyday Tobacco user Tobacco use type: Cigarette Cigarette Packs Per Day: 1 Cigarettes Per Day: 20.0 e-Cigarette/Vaping Use: Former Use Second Hand Smoke Exposure: Yes Substance Use Type: Crack/Cocaine, Heroin and Marijuana service: No Current occupational status: disabled Sexual orientation: Did not discuss. Cognitive needs: No Hearing needs: No Vision needs: No Questionnaire PHQ-9 Over the last 2 weeks, how often have you been bothered by any of the following problems? 1. Little interest or pleasure in doing things: not at all 2. Feeling down, depressed, or hopeless: not at all 3. Trouble falling or staying asleep, or sleeping too much: not at all 4. Feeling tired or having little energy: not at all 5. Poor appetite or overeating: not at all 6. Feeling bad about yourself - or that you are a failure or have let yourself or your family down: not at all 7. Trouble concentrating on things, such as reading the newspaper or watching television: not at all 8. Moving or speaking so slowly that other people could have noticed. Or the opposite - being so fidgety or restless that you have been moving around a lot more than usual: not at all 9. Thoughts that you would be better off or of hurting yourself in some way: not at all Total score: 0 Depression Screening Interpretation: Negative Depression Screening Done: Yes Source: Developed by Drs. Joseph Hillman, Irina Meadows, Darrel Gibson and colleagues, with an educational estevan from [employer]. Thrive Questionnaire Date Thrive assessed: 10/13/24 I am a: Patient What is your living situation today?: I have a steady place to live Within the past 12 months, did the food you bought not last and you didn't have the money to get more?: Sometimes True Within the past 12 months, did you worry whether your food would run out before you got money to buy more?: Never true Do you have trouble paying for medicines?: No Do you have trouble getting transportation to medical appointments?: No Do you have trouble paying your heating and electricity bill?: No Do you have trouble taking care of your child, family member or friend?: No Do you have trouble with day-to-day activities such as bathing, preparing meals, shopping, managing finances, etc.?: No Are you currently unemployed and looking for a job?: No Are you interested in more education?: No Please select the resources that you would like help with: None Currently or been in a relationship where the following occur: I choose not to answer THRIVE Score: 1 AUDIT C Alcohol Use Questionnaire (AUDIT-C) 1. How often do you have a drink containing alcohol?: Never Total Score: 0 IRA-7 AMB Questionnaire IRA-7 Date IRA - 7 assessed: 10/13/24 Feeling nervous, anxious, or on edge: 0 = Not at all Not being able to stop or control worryin = Not at all Worrying too much about different things: 0 = Not at all Trouble relaxin = Not at all Being so restless that it is hard to sit still: 0 = Not at all Becoming easily annoyed or irritable: 0 = Not at all Feeling afraid as if something awful might happen: 0 = Not at all Total IRA-7 score (0-4 normal; 5-9 mild; 10-14 moderate; 15-21 severe): 0 Source: Developed by Drs. Joseph Hillman, Irina Meadows, Darrel Gibson and colleagues, with an educational estevan from [employer]. Review of Systems Const Denies chills, Denies fatigue, Denies headache(s) and Denies weight loss Eyes Denies change in vision, Denies diplopia and Denies eye pain ENT Denies vertigo, Denies dizziness, Denies headache(s) and Denies nasal discharge Card Denies chest pain, Denies rapid heart rate and Denies dyspnea on exertion Resp Denies chest congestion, Denies cough, Denies pain with cough and Denies dyspnea on exertion GI Denies abdominal pain, Denies hematochezia and Denies change in bowel habits Musc Denies myalgias, Denies arthralgias and Denies joint swelling Skin/Breast Denies lesions and Denies unusual bruising Neuro Denies vertigo, Denies dizziness, Denies headache(s) and Denies focal weakness Endo Denies fatigue Physical exam (Primary Care) Vital Signs: Last Vital Signs Pulse 80 10/13/24 14:30 BP 136/86 10/13/24 14:30 Pulse Ox 97 10/13/24 14:30 Oxygen Delivery Method Room Air 10/13/24 14:30 BMI result Body Mass Index 28.8 Tobacco/Smoking Status: Tobacco use Status Tobacco use date assessed 10/13/24 10/13/24 14:36 Patient Tobacco Use Status Current everyday Tobacco 10/13/24 14:36 Tobacco use type Cigarette 10/13/24 14:36 e-Cigarette/Vaping Use Former Use 10/13/24 14:36 PHQ-9: PHQ-9 Score PHQ-9: Total score 0 10/13/24 14:44 Depression Screening Interpretation: Negative Thrive Assessment: Date of Thrive Assessment Date Thrive assessed 10/13/24 10/13/24 14:36 Currently or been in a relationship where the following occur: I choose not to answer Const General: cooperative, healthy appearing and no acute distress Orientation/consciousness: oriented to person, oriented to place and oriented to time HENWI Head: Yes normal to inspection, Yes normocephalic and Yes atraumatic Mouth: Normal oral and palatal mucosa present and tongue normal Throat: Yes posterior oropharynx normal and Yes uvula midline Eyes General: appearance normal, both eyes and all related structures Neck Neck: Yes normal visual inspection, Yes full ROM and Yes no lymphadenopathy Thyroid: Thyroid normal Carotids: normal carotid upstroke Chest Chest palpation & inspection: normal inspection of the chest Resp Effort & Inspection: normal respiratory effort and able to speak in complete sentences Auscultation: clear to auscultation bilaterally Cardio Jugular venous distension: no JVD Palpation: normal PMI Rate: regular rate Rhythm: regular rhythm Heart sounds: S1 normal heart sound present and S2 normal heart sound present GI Inspection: Yes normal to inspection Palpation (GI): Soft to palpation and No hepatosplenomegaly present Auscultation: normal bowel sounds General: Yes no CVA tenderness Back/Spine/Pelvis Back: no CVA tenderness Skin General skin exam: no rashes or lesions noted Neuro General: oriented to person, oriented to place and oriented to time Extrem General: Yes normal to inspection and Yes full ROM Office Procedures Flu Questionnaire Does the patient have a severe egg allergy?: No Immunizations Fluarix Triv [id number] (PF) 45 mcg (15 mcg x 3)/0.5 mL IM syringe Performing Provider: Alberto Hernandez MD [facility] [place] [facility] Documented (not given) by: AMARILYS Johnson on 10/13/24 14:37 Reason Not Given: Received Previously Coding Level of Care Code Est Pt Prev Care 40-64y(55872) Diagnoses Physical exam Z00.00 Paranoid schizophrenia F20.0 Schizophrenia type: paranoid schizophrenia Assessment & Plan Assessment & Plan (1) Physical exam: Code(s): Z00.00 - Encounter for general adult medical examination without abnormal findings Category: Medical Plan: stable; do labs (2) Schizophrenia: Code(s): F20.9 - Schizophrenia, unspecified Category: Medical Qualifiers: Schizophrenia type: paranoid schizophrenia Qualified Code(s): F20.0 - Paranoid schizophrenia Plan: stable; as per psych Orders: Orders Influenza [id number] Immunization 10/13/24 Z23 - Encounter for immunization Medications: New cephalexin 250 mg PO Q6H 28 caps 0RF
--- OUTSIDE RECORDS SUMMARY | 2024-10-13 18:53 | XMS_ITS ---
Author Organization [facility] Address [address] [place] [address] Care Team Providers Care Entry Level Management Name Role Phone Alberto Hernandez MD Primary Care Provider Unavaila Joseph Sotelo Unavailable [phone] REASON FOR VISIT Insurance? Encounters Encounter Location Date Provider Diagnosis [facility] [address] [place] [address] 10/31/2023 Joseph Diaz PLAN OF TREATMENT No Information
--- OUTSIDE RECORDS SUMMARY | 2024-10-13 18:53 | XMS_ITS | Patient Health Record ---
Author Organization [facility] Address [address] [place] [address] Care Team Providers Care Application Release Manager Name Role Phone Mary ORNELAS, Alberto Primary Care Provider Joseph Ramirez [phone] REASON FOR REFERRAL No Information SOCIAL HISTORY Sex Assigned At : Social History Observation Description Sex Assigned At Unknown Encounters Encounter Location Date Provider Diagnosis [facility] [address] [place] [phone] 11/21/2023 Joseph Diaz [facility] [address] [place] [address] 10/31/2023 Joseph Diaz [facility] [address] [place] [address] 11/21/2023 Joseph Diaz PLAN OF TREATMENT No Information Insurance Providers Payer Name Payer Address Payer Phone Subscriber Number Group Number Insured Name Patient Relationship to Insured Coverage Start Date Coverage End Date MEDICARE OF [employer] [address] [place] [id number] SUHAIL FERNANDEZ Self - patient is the insured
--- OUTSIDE RECORDS SUMMARY | 2024-10-13 18:53 | XMS_ITS ---
Author Organization [facility] Address [address] [place] [address] Care Team Providers Care Acupuncturist Name Role Phone Alberto Hernandez MD Primary Care Provider Unavaila Joseph Sotelo Unavailable [phone] REASON FOR VISIT New pt no show Encounters Encounter Location Date Provider Diagnosis [facility] [address] [place] [address] 11/21/2023 Joseph Diaz PLAN OF TREATMENT No Information
--- OUTSIDE RECORDS SUMMARY | 2024-10-13 18:54 | XMS_ITS ---
Author Organization [facility] Address [address] [place] [address] Care Team Providers Care Fancy Stitcher Name Role Phone Alberto Hernandez MD Primary Care Provider Unavaila Joseph Sotelo Unavailable [phone] REASON FOR VISIT Patient presents today for a colon screening Encounters Encounter Location Date Provider Diagnosis [facility] [address] [place] [address] 11/21/2023 Joseph Diaz PLAN OF TREATMENT No Information
--- OUTSIDE RECORDS SUMMARY | 2024-10-13 18:54 | XMS_ITS | Clinical Summary ---
Author Organization [facility] Address [address] [place] [address] Care Team Providers Care Donor Support Technician Name Role Phone Unavailable Primary Care Provider Unavailabl e Social History Tobacco Use Types Packs/Day Years Used Date Smoking Tobacco: Never Assessed Sex and Gender Information Value Date Recorded Sex Assigned at Not on file Gender Identity Not on file Sexual Orientation Not on file Plan of Treatment Health Maintenance Due Date Last Done Comments DTaP,Tdap,and Td Vaccines (1 - Tdap) 1991 Hepatitis B Vaccines (1 of 3 - 19+ 3-dose series) 1991 Zoster Vaccines (1 of 2) 2022 COVID-19 Vaccine ( - 2023-2 5 season) 2024 Influenza Vaccine (#1) 2024 HIB Vaccines Aged Out No longer eligi ble based on patient's age to complete this topic HPV Vaccines Aged Out No longer eligi ble based on patient's age to complete this topic Hepatitis A Vaccines Aged Out No long er eligible based on patient's age to complete this topic IPV Vaccines Aged Out No longer eligi ble based on patient's age to complete this topic MMR Vaccines Aged Out No longer eligi ble based on patient's age to complete this topic Meningococcal ACWY Vaccine Aged Out N o longer eligible based on patient's age to complete this topic Pneumococcal Vaccine: Pediat rics (0 to 5 Years) and At-Risk Patients (6 to 64 Years) Aged Out No longer eligible b ased on patient's age to complete this topic RSV Immunization Patients Un sonam 20 months Aged Out No longer eligible b ased on patient's age to complete this topic Varicella Vaccines Aged Out No longer eligible based on patient's age to complete this topic
== END 2024-10-13 14:56 | disposition home or self-care (01) ==
PROVIDERS: PCP Internal Medicine; Visit Provider Internal Medicine
DX: Z23 Encounter for immunization (principal)

== ENCOUNTER → 2024-10-13 14:26 | Outpatient (BNVA) | payer MEDICARE, MEDICAID, SELFPAY | PROVIDERS: PCP Internal Medicine; Visit Provider Internal Medicine | DX: Z00.00 Encounter for general adult medical examination without abnormal findings (principal); F20.0 Paranoid schizophrenia | CPT/HCPCS: 90471; 96127; 99396 ==

== ENCOUNTER 2024-10-29 11:07 | Outpatient (REF) | payer MEDICARE, MEDICAID, SELFPAY ==
--- OUTSIDE RECORDS SUMMARY | 2024-10-29 13:03 | XMS_ITS ---
Author Organization [facility] Address [address] [place] [address] Care Team Providers Care Virtual Assistant Name Role Phone Alberto Hernandez MD Primary Care Provider Unavaila Joseph Sotelo Unavailable [phone] REASON FOR VISIT Patient presents today for a colon screening Encounters Encounter Location Date Provider Diagnosis [facility] [address] [place] [address] 11/21/2023 Joseph Diaz PLAN OF TREATMENT No Information
--- OUTSIDE RECORDS SUMMARY | 2024-10-29 13:03 | XMS_ITS | Patient Health Record ---
Author Organization [facility] Address [address] [place] [address] Care Team Providers Care Policewoman Name Role Phone Mary ORNELAS, Alberto Primary Care Provider Joseph Ramirez [phone] REASON FOR REFERRAL No Information SOCIAL HISTORY Sex Assigned At : Social History Observation Description Sex Assigned At Unknown Encounters Encounter Location Date Provider Diagnosis [facility] [address] [place] [address] 11/21/2023 Joseph Diaz [facility] [address] [place] [address] 10/31/2023 Joseph Diaz [facility] [address] [place] [address] 11/21/2023 Joseph Diaz PLAN OF TREATMENT No Information Insurance Providers Payer Name Payer Address Payer Phone Subscriber Number Group Number Insured Name Patient Relationship to Insured Coverage Start Date Coverage End Date MEDICARE OF [employer] [address] [place] [id number] SUHAIL FERNANDEZ Self - patient is the insured
--- OUTSIDE RECORDS SUMMARY | 2024-10-29 13:03 | XMS_ITS ---
Author Organization [facility] Address [address] [place] [address] Care Team Providers Care Breakdown Man Name Role Phone Alebrto Hernandez MD Primary Care Provider Unavaila Joseph Sotelo Unavailable [phone] REASON FOR VISIT Insurance? Encounters Encounter Location Date Provider Diagnosis [facility] [address] [place] [address] 10/31/2023 Joseph Diaz PLAN OF TREATMENT No Information
--- OUTSIDE RECORDS SUMMARY | 2024-10-29 13:03 | XMS_ITS ---
Author Organization [facility] Address [address] [place] [address] Care Team Providers Care Credit Director Name Role Phone Alberto Hernandez MD Primary Care Provider Unavaila Joseph Sotelo Unavailable [phone] REASON FOR VISIT New pt no show Encounters Encounter Location Date Provider Diagnosis [facility] [address] [place] [address] 11/21/2023 Joseph Diaz PLAN OF TREATMENT No Information
--- OUTSIDE RECORDS SUMMARY | 2024-10-29 13:04 | XMS_ITS | Clinical Summary ---
Author Organization [facility] Address [address] [place] [address] Care Team Providers Care Wash And Greaser Name Role Phone Unavailable Primary Care Provider Unavailabl e Social History Tobacco Use Types Packs/Day Years Used Date Smoking Tobacco: Never Assessed Sex and Gender Information Value Date Recorded Sex Assigned at Not on file Legal Sex Male 10:24 AM EST Gender Identity Not on file Sexual Orientation Not on file Plan of Treatment Health Maintenance Due Date Last Done Comments DTaP,Tdap,and Td Vaccines (1 - Tdap) 1991 Hepatitis B Vaccines (1 of 3 - 19+ 3-dose series) 1991 Pneumococcal Vaccine: 50+ Ye ars (1 of 1 - PCV) 2022 Zoster Vaccines (1 of 2) 2022 COVID-19 [...] patient's age to complete this topic Meningococcal B Vacine Aged Out No lo nger eligible based on patient's age to complete [...]
== END 2024-10-29 11:08 | disposition home or self-care (01) ==
LOC: HO.LAB 11:07
PROVIDERS: PCP Internal Medicine
DX: Z13.89 Encounter for screening for other disorder (principal)

== ENCOUNTER 2025-06-11 15:33 | Outpatient (AMB) | payer MEDICARE, MEDICAID, SELFPAY ==
--- NOTE | 2025-06-11 15:58 | A.OFFPC_ITS ---
Vital Signs 06/11/25 16:00 Height 5 ft 4 in Weight 168 lb 8 oz BMI 28.9 BP 130/70 Blood Pressure Location Lt brachial Position Sitting Pulse 76 Pulse Source Pulse Oximeter Temp 97.3 F Temp Source Temporal Artery Scan Pulse Oximetry (%) 95 Oxygen Delivery Method Room Air Intake Visit Reasons: EUSEBIA makeda Anderson [facility] ppwork filled out Intake Note: Patient is here today for EUSEBIA from Dr Hernandez and Kristina paperwork Door And Arrival Attendant Required: No Loan Documents Closer: Not Required per policy Accompanied by: Self / Same As Patient Allergies haloperidol (From HALDOL) Allergy (Intermediate, Verified 06/11/25 16:07) UNKNOWN Medication List - Last Reconciled 06/11/25 by TRAN Garibay ammonium lactate 12% 1 appl topical DAILY 30 days artificial saliva (yerbas-lyt) ([employer]outh[employer] [place]) 1 spray mucous membrane Q2H PRN 30 days benztropine mg PO DAILY clonazepam 0.5 mg PO BID 30 days diphenhydramine HCl (Allergy Relief (diphenhydramine)) 50 mg (2 x 25 mg) PO DAILY PRN 30 days docusate sodium 100 mg PO BID duloxetine 120 mg (2 x 60 mg) PO DAILY gabapentin 800 mg (2 x 400 mg) PO TID 30 days ibuprofen 800 mg PO TID lidocaine 4% (Lidocaine Pain Relief) 2 patches See Protocol transdermal DAILY PRN 30 days nicotine (polacrilex) 2 mg buccal Q1H PRN 30 days omeprazole 40 mg PO DAILY@0630 30 days perphenazine 16 mg (2 x 8 mg) PO BID 30 days sennosides (senna) 17.2 mg (2 x 8.6 mg) PO DAILY tamsulosin 0.4 mg PO BEDTIME trazodone 50 mg PO BEDTIME PRN 30 days triamcinolone acetonide 0.1% 1 appl See Protocol topical DAILY 30 days Tobacco use date assessed: 06/11/25 Dental Screening Dental Screen Date: 10/13/[address] Hernandez needs [facility] ppwork filled out HPI Details The patient is a 54-year-old male presenting to transition care from Dr Tyler Hernandez, who retied. He is presenting with dental infection, heartburn, neck pain with radiculopathy, and suspected COPD management due to abnormal breath sounds, sob, and longstanding history of cigarette smoking. The dental infection has been causing significant mouth pain, and the patient reports having two infected teeth. He last visited the dentist about a year ago and is currently managing the pain with ibuprofen and gabapentin. The patient experiences heartburn, which is controlled with medication, but it can cause chest pain if the medication is not taken, especially after consuming certain foods. Neck pain with radiculopathy has been persistent, with numbness and tingling extending from the neck down the right arm and from the lower back down the left leg. The patient reports a history of feeling like something was broken in the collarbone area, but imaging did not reveal any abnormalities. The patient has a history of smoking since the age of 13, with intermittent periods of cessation during hospital stays. He does not use inhalers and occasionally experiences shortness of breath. Constipation is managed with Colace, and the patient reports no current issues. Patient reports that he is seeing Sandi at [facility] Medical History Opioid use disorder Rash Sandrita Spinal cord lesion Right hemiparesis Substance abuse Schizophrenia Psychosis Surgical History History of liver biopsy Family History Father Medical history unknown Mother Medical history unknown Social History Household Members: Other Household Members Other:: Custodial Housing: Other Housing Other:: Custodial Do you presently have visiting nurse or other home services: No Alcohol intake: former Comment: on ob status Patient Tobacco Use Status: Current everyday Tobacco user Tobacco use type: Cigarette Cigarette Packs Per Day: 1 Cigarettes Per Day: 20.0 e-Cigarette/Vaping Use: Former Use Second Hand Smoke Exposure: Yes Substance Use Type: Crack/Cocaine, Heroin and Marijuana service: No Current occupational status: disabled Sexual orientation: Did not discuss. Cognitive needs: No Hearing needs: No Vision needs: No Questionnaire PHQ-9 Over the last 2 weeks, how often have you been bothered by any of the following problems? 5. Poor appetite or overeating: not at all 6. Feeling bad about yourself - or that you are a failure or have let yourself or your family down: not at all 7. Trouble concentrating on things, such as reading the newspaper or watching television: not at all 8. Moving or speaking so slowly that other people could have noticed. Or the opposite - being so fidgety or restless that you have been moving around a lot more than usual: not at all 9. Thoughts that you would be better off or of hurting yourself in some way: not at all Source: Developed by Drs. Joseph Hillman, Irian Meadows, Darrel Gibson and colleagues, with an educational estevan from [employer]. Thrive Questionnaire Date Thrive assessed: 10/13/24 I am a: Patient What is your living situation today?: I have a steady place to live Within the past 12 months, did the food you bought not last and you didn't have the money to get more?: Sometimes True Within the past 12 months, did you worry whether your food would run out before you got money to buy more?: Never true Do you have trouble paying for medicines?: No Do you have trouble getting transportation to medical appointments?: No Do you have trouble paying your heating and electricity bill?: No Do you have trouble taking care of your child, family member or friend?: No Do you have trouble with day-to-day activities such as bathing, preparing meals, shopping, managing finances, etc.?: No Are you currently unemployed and looking for a job?: No Are you interested in more education?: No Please select the resources that you would like help with: None Currently or been in a relationship where the following occur: I choose not to answer THRIVE Score: 1 IRA-7 AMB Questionnaire IRA-7 Date IRA - 7 assessed: 10/13/24 Source: Developed by Drs. Joseph Hillman, Irina Meadows, Darrel Gibson and colleagues, with an educational estevan from [employer]. Review of Systems Const Denies headache(s) Eyes Denies loss of vision ENT Reports dental pain, Denies vertigo, Denies dizziness, Denies headache(s), Reports nasal congestion, Reports neck pain, Reports post nasal drip and Denies sore throat Card Denies chest pain, Denies leg edema, Denies lightheadedness and Reports dyspnea (Occasional) Resp Denies cough, Denies hemoptysis, Reports dyspnea (Occasional) and Denies wheezing GI Denies abdominal pain, Denies melena, Reports constipation, Reports heartburn (Depending on what he eats), Denies diarrhea and Denies vomiting Denies dysuria, Denies urinary frequency and Denies urinary urgency Musc Denies arthralgias, Denies joint swelling, Reports neck pain, Reports numbness (Right arm), Reports radiating pain into limb (Right arm) and Reports tingling (Right arm) Neuro Denies Abnormal speech present, Denies behavioral changes, Denies vertigo, Denies dizziness, Denies headache(s), Denies loss of vision, Denies memory loss, Reports numbness (Right arm) and Reports tingling (Right arm) Psych Denies anxiety, Denies behavioral changes, Denies depression, Denies memory loss, Denies panic attacks and Reports other (History of schizophrenia) Jim/Lymph Denies easy bleeding and Denies easy bruising Aller/Immun Denies wheezing Physical exam (Primary Care) Vital Signs: Last Vital Signs Temp 97.3 F 06/11/25 16:00 Pulse 76 06/11/25 16:00 BP 130/70 06/11/25 16:00 Pulse Ox 95 06/11/25 16:00 Oxygen Delivery Method Room Air 06/11/25 16:00 BMI result Body Mass Index 28.9 Tobacco/Smoking Status: Tobacco use Status Tobacco use date assessed 06/11/25 06/11/25 16:05 Patient Tobacco Use Status Current everyday Tobacco 06/11/25 16:05 Tobacco use type Cigarette 06/11/25 16:05 e-Cigarette/Vaping Use Former Use 06/11/25 16:05 Thrive Assessment: Date of Thrive Assessment Date Thrive assessed 10/13/24 06/11/25 16:05 Currently or been in a relationship where the following occur: I choose not to answer Const General: healthy appearing, no acute distress, alert and awake Nutritional Appearance: well nourished Orientation/consciousness: oriented to person, oriented to place and oriented to time HENMT Ears: TM's normal bilaterally General nose exam: Abnormal mucous membranes and turbinates present boggy bilateral and erythematous bilateral and Nasal discharge present purulent bilateral Teeth and gingiva: gingiva abnormal edematous, diffusely erythematous and tender and poor dentition Eyes Conjunctivae: conjunctivae normal Sclerae: sclerae normal Pupils: Equal, round and reactive pupils present Neck Neck: Yes no lymphadenopathy and Yes no JVD Thyroid: Thyroid normal Carotids: no bruits Resp Effort & Inspection: normal respiratory effort and not tachypneic Auscultation: no crackles, rales bilateral in the lower lung ruth, no rhonchi and no wheezes Cardio Rate: regular rate Rhythm: regular rhythm Heart sounds: S1 normal heart sound present, S2 normal heart sound present, no murmurs and normal S1 and S2 GI Palpation (GI): Soft to palpation, nontender, no hepatomegaly and no splenomegaly Auscultation: normal bowel sounds General: Yes no CVA tenderness Back/Spine/Pelvis Back: no CVA tenderness Cervical Spine: cervical muscular tenderness Thoracic/Lumbar Spine: No thoracic spinal tenderness and No lumbar spinal tenderness Skin General skin exam: no rashes or lesions noted and dry skin Neuro General: oriented to person, oriented to place and oriented to time Cranial nerves: Yes Equal, round and reactive pupils present Speech: No Abnormal speech present Gait exam (Neuro): Normal gait present Motor exam (neuro): no tremor noted Extrem Right upper extremity: full ROM Left upper extremity: full ROM Right lower extremity: full ROM; no edema Left lower extremity: full ROM; no edema Psych Mental Status: mental status grossly normal Speech and movement: Normal speech and movement present Affect: normal affect Attitude: cooperative Thought process: Normal thought process present Coding Level of Care Code Est Pt Level 4 (16010) Diagnoses Paranoid schizophrenia F20.0 Schizophrenia type: paranoid schizophrenia Chronic GERD K21.9 Cervical myelopathy G95.9 Dental infection K04.7 Rhinosinusitis J32.9 Abnormal breath sounds R09.89 SOB (shortness of breath) R06.02 Constipation, unspecified constipation type K59.00 Constipation type: unspecified constipation type Time Spent (min) 41 Assessment & Plan Assessment & Plan (1) Schizophrenia: Code(s): F20.9 - Schizophrenia, unspecified Category: Medical Qualifiers: Schizophrenia type: paranoid schizophrenia Qualified Code(s): F20.0 - Paranoid schizophrenia Plan: Continue perphenazine 16 mg b.i.d., benztropine, clonazepam 0.5 mg bid Follow up with Psychiatry as scheduled (2) Chronic GERD: Code(s): K21.9 - Gastro-esophageal reflux disease without esophagitis Category: Medical Plan: Do not eat meals or drink carbonated beverages within 3 hr of bedtime Decrease the amount of fried, fatty, and spicy foods to decrease gastric acid production Raise the head of the bed using 4 to 6-inch blocks, especially if nocturnal symptoms are present Lose weight if indicated; avoid tight-fitting clothing, especially around the waist Avoid foods that relax the Lower esophageal sphincter (chocolate, peppermint, high-fat foods etc.,) Continue omeprazole 40 mg daily (3) Cervical myelopathy: Code(s): G95.9 - Disease of spinal cord, unspecified Category: Medical Plan: Cervical spine MRI done on 02/10/2022 showed moderate multilevel degenerative spinal arthropathy of the cervical spine. Moderate spinal canal stenosis at C5- C6. Mild spinal canal stenosis at C4-C5, and [id number] neural foraminal stenosis from C3-C7. The patient is still complaining off and neck pain and radiculopathy down right arm. Continue gabapentin 800 mg t.i.d., duloxetine 120 mg daily. Consider re-imaging if symptoms persist. (4) Dental infection: Code(s): K04.7 - Periapical abscess without sinus Category: Medical Plan: Augmentin 875-125 mg b.i.d. x7 days ordered. Encouraged the patient to follow up with dentist (5) Rhinosinusitis: Code(s): J32.9 - Chronic sinusitis, unspecified Category: Medical Plan: Patient was also noted to have a sinus infection. Augmentin was used to cover both problems. (6) Abnormal breath sounds: Code(s): R09.89 - Other specified symptoms and signs involving the circulatory and respiratory systems Category: Medical Plan: Patient has a longstanding history of cigarette smoking. He is currently smoking a pack a day. We will refer the patient to thoracic surgery for lung cancer screening (7) SOB (shortness of breath): Code(s): R06.02 - Shortness of breath Category: Medical Plan: Patient reports that this is occasional and random. We will continue to monitor (8) Constipation: Code(s): K59.00 - Constipation, unspecified Category: Medical Qualifiers: Constipation type: unspecified constipation type Qualified Code(s): K59.00 - Constipation, unspecified Plan: Encouraged increasing fluids and dietary fiber. Continue docusate sodium 100 mg b.i.d. Orders: Orders Comprehensive [place]. Panel Fast 06/11/25 F19.10 - Other psychoactive substance abuse, uncomplicated, F20.0 - Paranoid schizophrenia, K21.9 - Gastro-esophageal reflux disease without esophagitis, Z00.00 - Encounter for general adult medical examination without abnormal findings TSH reflex Free T4 06/11/25 F19.10 - Other psychoactive substance abuse, uncomplicated, F20.0 - Paranoid schizophrenia, K21.9 - Gastro-esophageal reflux disease without esophagitis, Z00.00 - Encounter for general adult medical examination without abnormal findings Vitamin D 25-OH Total 06/11/25 F19.10 - Other psychoactive substance abuse, uncomplicated, F20.0 - Paranoid schizophrenia, K21.9 - Gastro-esophageal reflux disease without esophagitis, Z00.00 - Encounter for general adult medical examination without abnormal findings Complete Blood Count Auto Diff 06/11/25 F19.10 - Other psychoactive substance abuse, uncomplicated, F20.0 - Paranoid schizophrenia, K21.9 - Gastro-esophageal reflux disease without esophagitis, Z00.00 - Encounter for general adult medical examination without abnormal findings Lipid Panel 06/11/25 F19.10 - Other psychoactive substance abuse, uncomplicated, F20.0 - Paranoid schizophrenia, K21.9 - Gastro-esophageal reflux disease without esophagitis, Z00.00 - Encounter for general adult medical examination without abnormal findings UA CC w/rflx Micro + Cult 06/11/25 F19.10 - Other psychoactive substance abuse, uncomplicated, F20.0 - Paranoid schizophrenia, K21.9 - Gastro-esophageal reflux disease without esophagitis, Z00.00 - Encounter for general adult medical examination without abnormal findings Referrals Lung Cancer Screening Referral Z12.2 - Encounter for screening for malignant neoplasm of respiratory organs Medications: New amoxicillin-pot clavulanate 875-125 mg 1 tab PO BID 14 tabs 0RF 7 days
[2025-06-11 16:00] VITALS: BP 130/70; PULSE 76; TEMP 36.3; O2SAT 95; BMI 28.9
--- OUTSIDE RECORDS SUMMARY | 2025-06-11 19:39 | XMS_ITS | Encounter Summary ---
Author Organization [facility] Address [address] [place] [address] Phone Care Team Providers Care Cyber Forensic Specialist Name Role Phone John Paul Rosenthal DO Primary Care Provider [phone] Encounter Details Date Type Department Care Team ([facility] st Contact Info) Description 02/13/2022 Procedure Pass [facility] [place], Sandhu [address]nd [place] [address] Social History Tobacco Use Types Packs/Day Years Used Date Smoking Tobacco: Never Assessed Sex and Gender Information Value Date Recorded Sex Assigned at Not on file Legal Sex Male 3:18 PM EDT Gender Identity Not on file Sexual Orientation Not on file documented as of this encounter Functional Status * Calculated C-SSRS Risk Score (Lifetime/Recent) Answer Date of Assessment Author Moderate Risk 02/13/2022 3:00 PM EDT Renee Walter RN * [place] Suicide Severity Rating Scale (Screener/Recent Self-Report) Question Answer Date of Assessment Author 1. Wish to be (Past 1 Month) No 02/13/2022 3:00 PM EDT Tatyana Walter RN 2. Non-Specific Active Suicidal Thoughts (Past 1 Month) No 02/13/2022 3:00 PM DRUT Tatyana Walter, FELIX 6. Suicidal Behavior (Lifetime) Yes 02/13/2022 3:00 PM EDT Tatyana Walter RN 6. Suicidal Behavior (3 Months) No 02/13/2022 3:00 PM EDT Tatyana Walter, FELIX documented as of this encounter Plan of Treatment Not on file documented as of this encounter Visit Diagnoses Not on filedocumented in this encounter Care Teams Cyber Forensic Specialist Relationship Specialty Start Date End Date GaloJohn Paul DO [address] [facility] [address] [place] [address] PCP - General Family Medicine 02/12/22 documented as of this encounter Additional Source Comments The information contained in this document represents components of the legal health record. It is not the complete legal health record.[facility]
--- OUTSIDE RECORDS SUMMARY | 2025-06-11 19:39 | XMS_ITS | Clinical Summary ---
Author Organization [facility] Address [address] [place] [address] Phone Care Team Providers Care Complaint Manager Name Role Phone John Paul Rosenthal DO Primary Care Provider [phone] Medications traZODone (DESYREL) 50 MG tablet Take 1 tablet (50 mg total) by mouth nightly at bedtime as needed. 2 Active senna (SENOKOT) 8.6 mg tablet Take 1 tablet by mouth nightly at bedtime as needed. 2 Active perphenazine (TRILAFON) 8 MG tablet Take 1 tablet (8 mg total) by mouth nightly at bedtime. 2 Active OXcarbazepine (TRILEPTAL) 600 MG tablet Take 1 tablet (600 mg total) by mouth 2 (two) times a day. 2 Active nicotine (NICODERM CQ) 7 mg/[address] 1 patch onto the skin daily. 2 Active naproxen (NAPROSYN) 500 MG tablet Take 1 tablet (500 mg total) by mouth 2 (two) times a day as needed. 2 Active melatonin 3 mg Tab Take 1 tablet (3 mg total) by mouth nightly at bedtime. 2 Active gabapentin (NEURONTIN) 300 MG capsule Take 2 capsules (600 mg total) by mouth every 8 (eight) hours. 2 Active enoxaparin (LOVENOX) 40 mg/0.4 mL Syrg subcutaneous syringe Inject 0.4 mL (40 mg total) under the skin daily. 2 Active DULoxetine (CYMBALTA) 40 mg capsule Take 1 capsule (40 mg total) by mouth 2 (two) times a day. 2 Active benztropine (COGENTIN) 0.5 MG tablet Take 1 tablet (0.5 mg total) by mouth 2 (two) times a day. 2 Active benzocaine-mentho L (CEPACOL SORE THROAT) 15-2.6 mg Lozg Use as directed 1 lozenge in the mouth or throat 3 (three) times a day as needed. 2 Active acetaminophen (TYLENOL) 325 mg tablet Take 2 tablets (650 mg total) by mouth every 6 (six) hours. 0 2 Active aluminum-magnesiu m hydroxide-simethi cone (MAALOX) 200-200-20 mg/5 mL Susp Take 30 mL by mouth every 4 (four) hours as needed. 2 Active lidocaine 4 % Place 2 patches onto the skin 2 (two) times a day as needed. 2 Active Active Problems Problem Noted Date Diagnosed Date Myelopathy 02/13/2022 Social History Tobacco Use Types Packs/Day Years Used Date Smoking Tobacco: Never Assessed Education Answer Date Recorded Are you interested in more education? Not on zena e 01/13/2023 Are you concerned about learning? Not on file 01/13/2023 No 01/13/2023 No 01/13/2023 Digital Access Answer Date Recorded No 02/13/2023 No 02/13/2023 Reliable internet access at home? Not on file 02/13/2023 Device with a working camera? Not on file Sex and Gender Information Value Date Recorded Sex Assigned at Not on file Legal Sex Male 3:18 PM EDT Gender Identity Not on file Sexual Orientation Not on file Last Filed Vital Signs Vital Sign Reading Time Taken Comments Blood Pressure 120/66 02/16/2022 1:43 PM EDT Pulse 70 02/16/2022 1:05 PM EDT Temperature 36.6 C (97.8 F) 02/16/2022 1:05 PM EDT Respiratory Rate 20 02/16/2022 1:05 PM EDT Oxygen Saturation 96% 02/16/2022 1:05 PM EDT Inhaled Oxygen Concentration - - Weight 79.8 kg (176 lb) 02/13/2022 3:25 PM EDT Height 160 cm (5' 3 ) 02/13/2022 3:25 PM EDT Body Mass Index 31.18 02/13/2022 3:25 PM EDT Plan of Treatment Health Maintenance Due Date Last Done Comments Adult Td,Tdap Booster 1972 LIPID PANEL 1972 DEPRESSION SCREENING 1984 SMOKING Hx and SMOKELESS TOB ACCO SCREENING 1985 HEPATITIS C SCREENING 1990 COLOGUARD 2017 COLONOSCOPY 2017 COLORECTAL CANCER SCREENING 2017 FIT TEST 2017 FOBT 2017 SIGMOIDOSCOPY 2017 VIRTUAL COLONOSCOPY 2017 PNEUMOCOCCAL VACCINES (50+ y ears) (1 of 1 - PCV) 2022 ZOSTER VACCINES (1 of 2) 2022 INFLUENZA VACCINE (#1) 2025 COVID-19 VACCINE (1 - 2023-2 5 season) 2025 HIV ONE-TIME SCREENING (18-6 5 YEARS) Completed 02/13/2022 HEPATITIS A VACCINES Aged Out No long er eligible based on patient's age to complete this topic HIB VACCINES Aged Out No longer eligi ble based on patient's age to complete this topic MENINGOCOCCAL VACCINES (ACWY) Aged Out No longer eligible based on patient's age to complete this topic MENINGOCOCCAL VACCINES (B) Aged Out N o longer eligible based on patient's age to complete this topic Medical Devices Not on file Insurance MEDICARE PART A [place] [address] MEDICARE PART A [place] & B [facility] [place]ICARE [place] A [place] [address] [place] PART A [place] [address] MEDICARE PART A & [place] [facility] [place] [address] MEDICARE PART A & B [facility] Vesta [facility] [address] Michel Fifi ROBERTO CARLOS [place] [phone] Advance Directives For more information, please contact: [phone] (9AM - 5PM [facility], Sunday-Sunday) Documents on File Type Date Recorded Patient Wire Technician Expl anation Healthcare Proxy 02/14/2022 1:39 PM * Full Code (Latest Code Status on File) Date Activated Date Inactivated Comments 02/13/2022 3:13 PM Question Answer Comments Code Status Confirmed With: Patient Healthcare Agents on File Name Relationship Healthcare Agent Relationshi p Communication Roxana Arora Mother .Primary Health Care Agent (Proxy form on file) Care Teams Complaint Manager Relationship Specialty Start Date End Date John Paul Rosenthal DO [address] [address] PCP - General Family Medicine 02/12/22 Additional Source Comments The information contained in this document represents components of the legal health record. It is not the complete legal health record.[facility]
--- OUTSIDE RECORDS SUMMARY | 2025-06-11 19:39 | XMS_ITS | Encounter Summary ---
Author Organization [facility] Address [address] [place] [address] Phone Care Team Providers Care Biomedical Engineering Internship Name Role Phone John Paul Rosenthal DO Primary Care Provider [phone] Encounter Details Date Type Department Care Team ([facility] st Contact Info) Description 02/14/2022 Procedure Pass [facility] [place], Sandhu [address] [facility] [place] [address] Social History Tobacco Use Types Packs/Day Years Used Date Smoking Tobacco: Never Assessed Sex and Gender Information Value Date Recorded Sex Assigned at Not on file Legal Sex Male 3:18 PM EDT Gender Identity Not on file Sexual Orientation Not on file documented as of this encounter Plan of Treatment Not on file documented as of this encounter Visit Diagnoses Not on filedocumented in this encounter Care Teams Biomedical Engineering Internship Relationship Specialty Start Date End Date John Paul Rosenthal DO [address] [facility] [address] [place] [address] PCP - General Family Medicine 02/12/22 documented as of this encounter Additional Source Comments The information contained in this document represents components of the legal health record. It is not the complete legal health record.[facility]
--- OUTSIDE RECORDS SUMMARY | 2025-06-11 19:39 | XMS_ITS | Encounter Summary ---
Author Organization [facility] Address [address] [place] [phone] Phone Care Team Providers Care Metal Mine Inspector Name Role Phone John Paul Rosenthal DO Primary Care Provider [phone] Encounter Details Date Type Department Care Team ([facility] st Contact Info) Description 02/13/2022 Procedure Pass [facility] MRI, [place] [address] [place] [address] Social History Tobacco Use Types Packs/Day Years [...] 3:00 PM EDT Renee Walter RN * [place] Suicide Severity Rating Scale (Screener/Recent Self-Report) Question [...] on filedocumented in this encounter Care Teams Metal Mine Inspector Relationship Specialty Start Date End Date GaloJohn Paul DO 44 [address] [facility] [address] [place] [address] PCP - General Family Medicine 02/12/22 documented as of this encounter Additional Source Comments The information contained in this document represents components of the legal health record. It is not the complete legal health record.[facility]
--- OUTSIDE RECORDS SUMMARY | 2025-06-11 19:39 | XMS_ITS | Encounter Summary ---
Author Organization [facility] Address [address] [place] [address] Phone Care Team Providers Care Operating Systems Programmer Name Role Phone Galo John Paul CARRILLO Primary Care Provider [phone] Encounter Details Date Type Department Care Team ([facility] st Contact Info) Description 02/16/2022 Ancillary Orders [facility] [address] [place] [address] Jc Camcaho MD [address] [place] [phone] [email or web address] Abnormal finding on imaging Social History Tobacco Use Types Packs/Day Years Used Date Smoking Tobacco: Never Assessed Sex and Gender Information Value Date Recorded Sex Assigned at Not on file Legal Sex Male 3:18 PM EDT Gender Identity Not on file Sexual Orientation Not on file documented as of this encounter Plan of Treatment Not on file documented as of this encounter Visit Diagnoses Diagnosis Abnormal finding on imaging Other nonspecific (abnormal) findings on radiological and other examinations of body structure documented in this encounter Care Teams Operating Systems Programmer Relationship Specialty Start Date End Date John Paul Rosenthal DO [address] [id number] PCP - General Family Medicine 02/12/22 documented as of this encounter Additional Source Comments The information contained in this document represents components of the legal health record. It is not the complete legal health record.[facility]
== END 2025-06-11 16:36 | disposition home or self-care (01) ==
LOC: HO.HMCH 15:34
DX: F20.0 Paranoid schizophrenia (principal); K21.9 Gastro-esophageal reflux disease without esophagitis; G95.9 Disease of spinal cord, unspecified; K04.7 Periapical abscess without sinus; J32.9 Chronic sinusitis, unspecified; R09.89 Other specified symptoms and signs involving the circulatory and respiratory systems; R06.02 Shortness of breath; K59.00 Constipation, unspecified

== ENCOUNTER → 2025-06-11 15:33 | Outpatient (BNVA) | payer MEDICARE, MEDICAID, SELFPAY | DX: M54.12 Radiculopathy, cervical region (principal); K04.7 Periapical abscess without sinus; R12 Heartburn; J44.9 Chronic obstructive pulmonary disease, unspecified; K59.00 Constipation, unspecified; F20.0 Paranoid schizophrenia; K21.9 Gastro-esophageal reflux disease without esophagitis; G95.9 Disease of spinal cord, unspecified; J32.9 Chronic sinusitis, unspecified; R09.89 Other specified symptoms and signs involving the circulatory and respiratory systems; R06.02 Shortness of breath; F17.210 Nicotine dependence, cigarettes, uncomplicated | CPT/HCPCS: 99212 ==